=== PATIENT | male | born 1975 | race Caucasian/White ===

== ENCOUNTER 2016-07-12 02:51 | Inpatient (IN) | payer BC, OTHER ==
[2016-07-12] VITALS (14 sets, daily range): BP systolic 103–165; BP diastolic 59–89; PULSE 75–120; RESP 16–19; TEMP 94.3–100.4; O2SAT 96–100
[~2016-07-12] VITALS: Ht 180.3 cm; Wt 97.3 kg
[2016-07-12] MEDS ORDERED: MIDAZOLAM HCL 5 MG/ML VIAL (1 ML) ONE (03:10)
[2016-07-12] MEDS ORDERED: PROPOFOL 1000 MG/100 ML INJ 100 ML ONE (03:31)
[2016-07-12 03:32] LABS: BASOPHIL % 0.3 % (0.0-2.0); EOSINOPHIL % 0.3 % (0.0-4.0); LYMPH % 5.4 % (9.0-44.0); LYMPHOCYTE # 0.4 TH/MM3 (1.0-4.8); MEAN CELL VOLUME 97.2 FL (80.0-100.0); MEAN CORPUSCULAR HEMOGLOBIN 31.9 PG (27.0-34.0); MEAN CORPUSCULAR HGB CONC 32.8 % (32.0-36.0); MONO % 6.2 % (0.0-8.0); NEUT % 87.8 % (16.0-70.0); PLATELET COUNT 112 TH/MM3 (150-450); RED BLOOD COUNT 1.22 MIL/MM3 (4.50-5.90); WHITE BLOOD COUNT 6.8 TH/MM3 (4.0-11.0)
[2016-07-12 03:34] LABS: HEMO FLAGS AUTO DIFF
[2016-07-12 03:35] LABS: HEMATOCRIT 11.8 % (39.0-51.0)
[2016-07-12] MEDS ORDERED: DIPHTH/TETANUS/ACEL PERTUSSIS (BOOSTER) 0.5 ML VIAL/PFS IM ONE (03:45)
[2016-07-12] MEDS ORDERED: ceFAZolin 2 GM PREMIX 50 ML IV STA (03:47)
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
[2016-07-12 03:59] LABS: I-STAT POTASSIUM 2.5 MMOL/L (3.5-4.9); I-STAT SODIUM 141 MMOL/L (138-146)
[2016-07-12] MEDS ORDERED: SUCCINYLCHOLINE CHLORIDE 200 MG/10 ML VIAL IV ONE (04:00)
[2016-07-12] MEDS ORDERED: GENTAMICIN 80 MG PREMIX 100 ML IV ONE (04:00)
[2016-07-12] MEDS ORDERED: ETOMIDATE 20 MG/10 ML VIAL IV PUSH ONE (04:00)
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
[2016-07-12] MEDS ORDERED: LACTATED RINGER'S 1000 ML INJ 1,000 ML IV SCH (04:03)
--- NOTE | 2016-07-12 04:04 | RADRPT ---
EXAM DATE/TIME: 07/12/2016 02:46 [facility] COMPARISON: No previous studies available for comparison. INDICATIONS : Post reduction left forearm. MEDICAL HISTORY : Unobtainable. SURGICAL HISTORY : Unobtainable. ENCOUNTER: Initial ACUITY: 1 day PAIN SCORE: Non-responsive. LOCATION: Left forearm. FINDINGS: A single view of the left forearm is performed status post reduction of fracture/dislocation at the e lb. In this view, the elbow is in lateral projection in the wrist is in frontal projection. The a lignment of the proximal ulna to the humerus is reestablished. The location of the radial head fragm ent is obscured. CONCLUSION: Post reduction single view in splint demonstrates humerus and ulna in alignment. Bruno Vora MD on July 12, 2016 at 4:00 Board Certified Radiologist. This report was verified electronically.
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
[2016-07-12] MEDS ORDERED: IOHEXOL 350 MG/ML 10 ML VIAL (for RAD DIAG) IV ONE (04:14)
[2016-07-12] MEDS ORDERED: CHLORHEXIDINE GLUCONATE 2 % 1 PACK (2 CLOTHS) TOP PRN (04:15)
[2016-07-12] MEDS ORDERED: SODIUM CHLORIDE 0.9% FLUSH 5 ML FLUSH IVF PRN (04:15)
[2016-07-12] MEDS ORDERED: MAGNESIUM HYDROXIDE SUSP 30 ML CUP PO PRN (04:15)
[2016-07-12] MEDS ORDERED: ONDANSETRON HCL 4 MG/2 ML VIAL IV PRN (04:15)
[2016-07-12] MEDS ORDERED: MISCELLANEOUS NURSING INFORMATION XX SCH (04:15)
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
--- NOTE | 2016-07-12 04:27 | RADRPT ---
EXAM DATE/TIME: 07/12/2016 02:46 [facility] COMPARISON: No previous studies available for comparison. INDICATIONS : Post intubation. MEDICAL HISTORY : Unobtainable. SURGICAL HISTORY : Unobtainable. ENCOUNTER: Initial ACUITY: 1 day PAIN SCORE: Non-responsive. LOCATION: Bilateral chest FINDINGS: Examinations performed on a backboard. Endotracheal tube in place with the tip of the ET tube 2.2 cm above the tyrone. The lungs are symmetrically aerated. The heart is normal size. Both hemidiaphra gms are well delineated. CONCLUSION: ET tube in good position. The lungs are symmetrically aerated. Bruno Vora MD on July 12, 2016 at 4:25 Board Certified Radiologist. This report was verified electronically.
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
[2016-07-12 04:57] LABS: AUTOMATED NEUTROPHIL # 10.6 TH/MM3 (1.8-7.7); BASOPHIL % 0.2 % (0.0-2.0); EOSINOPHIL % 0.1 % (0.0-4.0); HEMATOCRIT 28.9 % (39.0-51.0); HEMO FLAGS DIFF FINAL; LYMPH % 4.4 % (9.0-44.0); LYMPHOCYTE # 0.5 TH/MM3 (1.0-4.8); MEAN CELL VOLUME 88.4 FL (80.0-100.0); MEAN CORPUSCULAR HGB CONC 35.1 % (32.0-36.0); MONO % 6.6 % (0.0-8.0); NEUT % 88.7 % (16.0-70.0); PLATELET COUNT 122 TH/MM3 (150-450); RED BLOOD COUNT 3.27 MIL/MM3 (4.50-5.90); RED CELL DISTRIBUTION WIDTH 13.7 % (11.6-17.2); WHITE BLOOD COUNT 11.9 TH/MM3 (4.0-11.0)
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
[2016-07-12] MEDS ORDERED: ETOMIDATE 20 MG/10 ML VIAL ONE (05:17)
[2016-07-12] MEDS ORDERED: VANCOMYCIN HCL 1000 MG VIAL ONE (05:20)
[2016-07-12] MEDS ORDERED: POTASSIUM CHLOR 20 MEQ PREMIX 100 ML ONE (05:43)
[2016-07-12 05:47] LABS: HEMATOCRIT 27.3 % (39.0-51.0); PLATELET COUNT 37 TH/MM3 (150-450)
[2016-07-12 05:51] LABS: REVIEW FLAG FINAL
[2016-07-12 06:16] LABS: BANDS 15 % (0-6); METAMYELOCYTES 3 % (0-1); NEUTROPHIL # MANUAL DIFF 5.6 TH/MM3 (1.8-7.7); POLYS (SEG NEUTROPHILS) 64 % (16-70); WBC DIFF SAMPLE 100
[2016-07-12 06:17] LABS: CRENATED RBCS 3+ (NORMAL); PLATELET ESTIMATE SMEAR LOW (NORMAL); PLATELET MORPHOLOGY NORMAL (NORMAL); SCAN/DIFF FINAL DIFF MANUAL
[2016-07-12 06:40] LABS: INTERNATIONAL NORMALIZED RATIO 1.3 RATIO; PROTHROMBIN TIME - PATIENT 14.3 SEC (9.8-11.6)
[2016-07-12 06:42] LABS: APTT (PATIENT) 31.2 SEC (24.3-30.1)
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
--- NOTE | 2016-07-12 08:16 | RADRPT ---
EXAM DATE/TIME: 07/12/2016 07:45 [facility] COMPARISON: No previous studies available for comparison. INDICATIONS : External fixation of left elbow fracture MEDICAL HISTORY : None. SURGICAL HISTORY : None. ENCOUNTER: Initial ACUITY: 1 day PAIN SCORE: Non-responsive. LOCATION: Left elbow FINDINGS: Alignment is anatomic in the lateral projection in this patient with an external fixer. CONCLUSION: Anatomic alignment. Julius Barillas MD FACR on July 12, 2016 at 8:14 Board Certified Radiologist. This report was verified electronically.
--- NOTE | 2016-07-12 10:50 | RADRPT ---
EXAM DATE/TIME: 07/12/2016 09:49 [facility] COMPARISON: No previous studies available for comparison. INDICATIONS : Open reduction internal fixation of right femur fractures. MEDICAL HISTORY : None. SURGICAL HISTORY : None. ENCOUNTER: Initial ACUITY: 1 day PAIN SCORE: Non-responsive. LOCATION: Right femur FINDINGS: Intramedullary gregg is seen bridging the fracture midshaft of the humerus. Alignment is anatomic. CONCLUSION: Anatomic alignment. Julius Barillas MD FACR on July 12, 2016 at 10:46 Board Certified Radiologist. This report was verified electronically.
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
[2016-07-12 11:30] LABS: BLOOD GAS BASE EXCESS -1.9 mmol/L (-2-2); BLOOD GAS CARBOXYHEMOGLOBIN 1.6 % (0-4); BLOOD GAS HCO3 23 mmol/L (22-26); BLOOD GAS O2 HGB SATURATION 97 % (90-100); BLOOD GAS PCO2 41 mmHg (38-42); BLOOD GAS PO2 431 mmHg (61-120); BLOOD GAS TOTAL HGB 10.9 G/DL (12.0-16.0); CRITICAL VALUE NO; DRAW SITE ART LINE; FIO2 100 %; OXYGEN DEVICE VENTILATOR; STAT YES; TEMP CORR TO 98.6; VENT SETTINGS AC/16/550/PEEP 5
[2016-07-12] MEDS ORDERED: MAGNESIUM OXIDE 400 MG TAB PO PRN (11:45)
[2016-07-12] MEDS ORDERED: POTASSIUM PHOSPHATE MONOBASIC 500 MG TAB PO PRN (11:45)
[2016-07-12] MEDS ORDERED: SODIUM PHOSPHATE INJ 30 MMOL in SODIUM CHLOR 0.9% 250 ML INJ 240 ML IV PRN (11:45)
[2016-07-12] MEDS ORDERED: POTASSIUM PHOSPHATE MONOBASIC 500 MG TAB PO/TUBE PRN (11:45)
[2016-07-12] MEDS ORDERED: POTASSIUM PHOSPHATE INJ 30 MMOL in SODIUM CHLOR 0.9% 250 ML INJ 250 ML IV PRN (11:45)
[2016-07-12] MEDS ORDERED: POTASSIUM CHLOR 20 MEQ PREMIX 100 ML IV PRN ×2 (11:45)
[2016-07-12] MEDS ORDERED: MAGNESIUM SULFATE INJ 2 GM in SODIUM CHLORIDE 0.9% INJ 96 ML IV PRN (11:45)
[2016-07-12] MEDS ORDERED: POTASSIUM CL 40 MEQ/30 ML LIQ UDC PO/TUBE PRN ×2 (11:45)
[2016-07-12] MEDS ORDERED: POTASSIUM CHLOR 40 MEQ PREMIX 100 ML IV PRN ×2 (11:45)
[2016-07-12] MEDS ORDERED: MAGNESIUM SULFATE INJ 4 GM in SODIUM CHLORIDE 0.9% INJ 92 ML IV PRN (11:45)
[2016-07-12 11:49] LABS: HEMATOCRIT 30.7 % (39.0-51.0)
[2016-07-12 11:50] LABS: AMPHETAMINE, URINE NEG (NEG); BARBITURATES, URINE NEG (NEG); COCAINE, URINE NEG (NEG); REVIEW FLAG FINAL
[2016-07-12] MEDS ORDERED: ePHEDrine/NS 50 MG/5 ML SYR IV ONE (11:53)
[2016-07-12] MEDS ORDERED: PHENYLEPH/NS 1000 MCG/10 ML SYR IV ONE (11:53)
[2016-07-12] MEDS ORDERED: LACTATED RINGER'S 1000 ML INJ 2,000 ML IV ONE (11:53)
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
[2016-07-12 12:02] LABS: INTERNATIONAL NORMALIZED RATIO 1.1 RATIO; PROTHROMBIN TIME - PATIENT 12.3 SEC (9.8-11.6)
[2016-07-12 12:03] LABS: APTT (PATIENT) 30.1 SEC (24.3-30.1)
[2016-07-12] MEDS ORDERED: fentaNYL CITRATE 250 MCG/5 ML AMP ONE (12:06)
[2016-07-12 12:11] LABS: BICARBONATE 26.3 MEQ/L (21.0-32.0); CALCIUM-PROTEIN CORRECTED 8.9 MG/DL (8.5-10.1); POTASSIUM 3.9 MEQ/L (3.5-5.1); TOTAL BILIRUBIN ADULT 2.1 MG/DL (0.2-1.0)
--- NOTE | 2016-07-12 12:33 | HHI.CCPN ---
Subjective Brief History 40-year-old male with known schizophrenic and allegedly on medication [place] and laid there for about 4 hours prior to be found and then picked up by EMS Patient was brought in as a priority 1 trauma alert intubated on spinal board with a c-collar in place. Initial hemoglobin was 3 patient was severely hypothermic and is severe hypovolemic hemorrhagic shock Mass transfusion protocol was initiated patient was resuscitated according to the trauma principles Patient sustained multiple injuries including Intra-abdominal hemorrhage with likely spleen laceration Left femoral fracture Left pubic and sacral fractures Left open elbow fracture Bilateral ulnar radial fractures open CT head - left sphenoid fracture - CT maxillofacial no fracture seen CT C-spine - negative CT T spine -20% endplate T12 compression fracture CT L-spine - negative CT chest - negative Patient was resuscitated and taken to the operating room for the emergent fixation of the open orthopedic injuries and then transferred to ICU for further care 24 Hour Review/Hospital Course Patient arrives in the ICU normotensive and hypothermic to temperature of about 94F Resuscitation was continued in the intensive care unit Initial laboratory studies show resolution of anemia with hemoglobin of 11 Platelets are pending and coagulation profile is slowly improving Patient will be taken to the CT of abdomen and pelvis with IV and by mouth contrast later on this afternoon when hemodynamically more stable and normothermic 07/12/16 addendum Patient underwent a repeat CAT scan of abdomen and pelvis with IV and by mouth contrast and this reveals same amount of fluid in the pelvis and around the spleen subphrenic without perforation free air or any sign of intra-abdominal leak Will continue managing patient conservatively as far as the abdominal injuries are concerned Should patient bleed then things may change Objective Vital Signs Date Time Temp Pulse Resp B/P Pulse Ox O2 Delivery O2 Flow Rate FiO2 07/12/16 11:20 100 100 07/12/16 11:11 89 07/12/16 11:11 Mechanical Ventilator 07/12/16 08:00 94.3 16 165/89 Result Diagram: 07/12/16 1055 07/12/16 1055 Other Results Laboratory Tests Test 07/12/16 11:10 Blood Gas Puncture Site ART LINE Blood Gas Patient Temperature 98.6 Blood Gas HCO3 23 mmol/L (22-26) Blood Gas Base Excess -1.9 mmol/L (-2-2) Blood Gas Oxygen Saturation 97 % (90-100) Arterial Blood pH 7.36 (7.380-7.420) Arterial Blood Partial 41 mmHg (38-42) Pressure CO2 Arterial Blood Partial 431 mmHg Pressure O2 (61-120) Arterial Blood Oxygen Content 16.0 Vol % (12.0-20.0) Arterial Blood 1.6 % (0-4) Carboxyhemoglobin Arterial Blood Methemoglobin 1.0 % (0-2) Blood Gas Hemoglobin 10.9 G/DL (12.0-16.0) Oxygen Delivery Device VENTILATOR Blood Gas Ventilator Setting AC/16/550/PEEP 5 Blood Gas Inspired Oxygen 100 % Imaging Last 24 hours Impressions [address] Spine CT 07/12/16321 Signed Impressions: Service Date/Time: Tuesday, July 12, 2016 04:10 - CONCLUSION: Less than 20%% compression deformity of the superior endplate of T12 with mild flattening of the ventral margin of the bony spinal canal. No definite retropulsed fragment. Bruno Vora MD Pelvis X-Ray 07/12/16321 Signed Impressions: Service Date/Time: Tuesday, July 12, 2016 02:46 - CONCLUSION: Fractures of the proximal right femur, left pubic bones and right sacrum. Bruno Vora MD Lumbar Spine CT 07/12/16321 Signed Impressions: Service Date/Time: Tuesday, July 12, 2016 04:10 - CONCLUSION: No evidence of fracture or spondylolisthesis of the lumbar vertebral bodies. Bruno Vora MD Head CT 07/12/16321 Signed Impressions: Service Date/Time: Tuesday, July 12, 2016 03:56 - CONCLUSION: 1. No acute findings in the brain. 2. Bilateral lesser wing sphenoid fractures. Bruno Vora MD Chest X-Ray 07/12/16321 Signed Impressions: Service Date/Time: Tuesday, July 12, 2016 02:46 - CONCLUSION: The lungs are clear. Bruno Vora MD Chest CT 07/12/16321 Signed Impressions: Service Date/Time: Tuesday, July 12, 2016 04:10 - CONCLUSION: Negative trauma CT of the thorax. Bruno Vora MD Cervical Spine CT 07/12/16321 Signed Impressions: Service Date/Time: Tuesday, July 12, 2016 03:56 - CONCLUSION: No evidence of acute fracture or spondylolisthesis. Bruno Vora MD Abdomen/Pelvis CT 07/12/16 0322 Signed Impressions: Service Date/Time: Tuesday, July 12, 2016 04:10 - CONCLUSION: 1. Multiple pelvic fractures including a displaced intertrochanteric right proximal femoral fracture, right sacral ala, left superior and inferior pubic ramus and symphysis pubis. 2. There is free fluid in the upper abdomen, more prominent on the left on the right and a moderate amount of free fluid in the pelvis. 3. No gross abnormality seen in the liver, spleen, or kidneys. There is some image degradation due to the patient's arms in the [id number] and from metallic wires. Bruno Vora MD Tibia/Fibula X-Ray 07/12/16 0000 Signed Impressions: Service Date/Time: Tuesday, July 12, 2016 02:46 - CONCLUSION: No fractures seen. Bruno Vora MD Radius/Ulna X-Ray 07/12/16 0000 Signed Impressions: Service Date/Time: Tuesday, July 12, 2016 02:46 - CONCLUSION: Fracture dislocation of the proximal radius and ulna at the elbow with complete dislocation of the radius and ulna with respect to the humerus. Bruno Vora MD Radius/Ulna X-Ray 07/12/16 0000 Signed Impressions: Service Date/Time: Tuesday, July 12, 2016 02:46 - CONCLUSION: Post reduction single view in splint demonstrates humerus and ulna in alignment. Bruno Vora MD Maxillofacial CT 07/12/16 0000 Signed Impressions: Service Date/Time: Tuesday, July 12, 2016 03:56 - CONCLUSION: No facial bone fractures seen. In particular, the lesser wing of the sphenoid is intact on both sides. Bruno Vora MD Knee X-Ray 07/12/16 0000 Signed Impressions: Service Date/Time: Tuesday, July 12, 2016 02:46 - CONCLUSION: Patellar and proximal fibular fractures. Bruno Vora MD Femur X-Ray 07/12/16 0000 Signed Impressions: Service Date/Time: Tuesday, July 12, 2016 02:46 - CONCLUSION: Intratrochanteric, midshaft femoral, left pubic, right sacral, and patellar fractures. Bruno Vora MD Chest X-Ray 07/12/16 0000 Signed Impressions: Service Date/Time: Tuesday, July 12, 2016 02:46 - CONCLUSION: ET tube in good position. The lungs are symmetrically aerated. Bruno Vora MD Exam [employer] Patient is intubated and ventilated His neurologic status remains elusive at this point and when other hemodynamic pulmonary and metabolic issues are addressed and resolved we will reassess his neurologic function CT scan did not reveal any brain injury or intracranial injury but. Of brain anoxia is unknown and might have been ranging from anywhere to 2-3 hours before patient was even discovered to be on the railroad tracks Fact that he came with a hemoglobin of 3 attests to continuous brain hypoxia but which she'll see how patient does clinically Hemodynamic/Cardiac Hemodynamically patient was unstable with low blood pressure and low hemoglobin however he has been resuscitated adequately in the trauma room using massive transfusion protocol related blood and blood products and then taken to the operating room where he is hemodynamic values were maintained Blood pressure is now stable Pulmonary/Respiratory Bilateral breath sounds patient remains on the ventilator will remain intubated for a while until neurologic status is assessed and metabolic abnormalities and hematologic deficiencies are addressed and corrected This may take a few days Abdomen/GI Nutrition Abdomen is soft at this point but patient is intubated so the physical exam has limited value Original CT scan shows some blood around the spleen and in the pelvis attesting to likely splenic injury and possible mesenteric tear from deceleration injury Patients like this high risk for intra-abdominal injury and intestinal perforation which may not be evident initially Once all stable patient will undergo CT of abdomen and pelvis with by mouth and IV contrast later on this afternoon to reassess If there is any question about the integrity of his intestinal tract or continues bleeding appropriate measures will be taken including possibly going to the operating room Renal/I&O Renal function is preserved but patient has had a period of hypoxia and therefore acute tubular necrosis will develops a patient's creatinine BUN will get worse before they get better Adequate perfusion will be maintained Assessment and Plan Attestation The exam, history, and the medical decision-making described in the above note were completed with the assistance of the mid-level provider. I reviewed and agree with the findings presented. I attest that I had a [id number] encounter with the patient on the same day, and personally performed and documented my assessment and findings in the medical record. Critical care time 90 minutes. Gino Gimenez MD Jul 12, 2016 12:33
[2016-07-12 13:00] LABS: MEAN CORPUSCULAR HGB CONC 36.1 % (32.0-36.0)
[2016-07-12] MEDS ORDERED: DIATRIZOATE MEGLUM/DIATRIZOATE SOD 9 ML CUP PO ONE (13:00)
[2016-07-12] MEDS: DOCUSATE SODIUM 100 MG CAP PO SCH ×2 (13:24→21:49)
[2016-07-12] MEDS: PANTOPRAZOLE SODIUM 40 MG VIAL IV PUSH SCH (13:25)
[2016-07-12] MEDS: SODIUM CHLOR 0.9% 1000 ML INJ 1,000 ML IV SCH ×2 (13:30→21:49)
[2016-07-12 13:31] LABS: MAGNESIUM 1.8 MG/DL (1.5-2.5)
--- NOTE | 2016-07-12 13:46 | MB ---
cc: HEATH CHOPRA M.D. DATE OF CONSULTATION: 07/12/2016. REASON FOR CONSULTATION: A trauma alert patient. Multiple fractures. Life threatening injury. HISTORY OF PRESENT ILLNESS: This patient is an approximately 28-year-old male who was reported to have tried to commit suicide by jumping off a bridge onto the railroad tracks. He was brought in by EMS as he was found lying on the ground. He had multiple extremity fractures and this is a level 1 trauma alert. He has a history of schizophrenia and bipolar disorder. He was intubated in the trauma bay for management purposes and the patient was hypotensive and had a hemoglobin of 3. He received massive blood transfusions. I was called emergently to evaluate and treat this patient for his life-threatening critical injuries. Further history is a not obtainable as the patient was intubated. ALLERGIES: Unobtainable. MEDICATIONS: Unobtainable. FAMILY HISTORY: Otherwise unobtainable. SOCIAL HISTORY Otherwise unobtainable. REVIEW OF SYSTEMS: Unobtainable other than the history of present illness. PHYSICAL EXAMINATION: GENERAL: The patient is patient lying in bed. He is intubated. HEAD, EYES, EARS, NOSE, THROAT: His head shows multiple abrasions to his face. Pupils are round. No scleral icterus. NECK: The neck is currently in a cervical collar. LUNGS: The lungs have air entry bilaterally. HEART: S1 and S2. ABDOMEN: Abdomen soft and nondistended. EXTREMITIES: Right knee shows crepitation consistent with a fracture of the patella. The right thigh has an open traumatic laceration on the lateral distal third consistent with an open femur fracture. There is crepitation and deformity of the right thigh with associated obvious swelling. Physical examination of the left knee shows a 10 cm traumatic transverse laceration with an obvious open patella fracture. He also has a separate traumatic wound along the proximal medial third of the tibia in the region of the patellar tendon. Physical examination of the left upper extremity shows deformity consistent with his fracture-dislocation. He has an open traumatic wound along the medial aspect approximately 10 cm with venous bleeding from this area. There is deformity and crepitation of the left elbow. Physical examination of the left hand shows traumatic laceration with partial degloving along the palmar aspect of the hand and wrist. It was reported that he has arterial bleeding from the region of the ulnar artery and the proximal portion of the ulnar artery was tied off in the trauma bay with Prolene suture. The patient does have a strong radial pulse distally. He has palpable dorsalis pedis pulses bilaterally to lower extremities. LABORATORY DATA: White blood cell count is 6.8, hemoglobin 3.9 on presentation, platelets 112,000 at presentation. IMAGING STUDIES: AP pelvis shows a right intertrochanteric hip fracture and left pelvic rami fractures. X-rays of the right femur show a right femoral shaft fracture with displacement. X-rays of the left forearm show a fractured radial head and neck with a dislocation of the left elbow. X-ray left tibia does show what appears to a left comminuted patella fracture. X-rays of the right tibia show a comminuted right patellar fracture. IMPRESSION: 28-year-old male who is reported to have attempted suicide by jumping from a height. He has multiple severe life-threatening and limb-threatening injuries for stabilization, irrigation and debridement, blood transfusion and management of his injuries. MD SANJANA Tenorio/BRIAN /10:20 AM /1:33 PM
[2016-07-12] MEDS: PROPOFOL 1000 MG/100 ML INJ 100 ML IV SCH ×3 (15:15→21:49)
[2016-07-12] MEDS ORDERED: EPINEPHrine HCL (1:10,000) 1 MG/10 ML SYRINGE ONE (16:43)
[2016-07-12] MEDS ORDERED: LIDOCAINE HCL 2% 100 MG/5 ML SYRINGE ONE (16:44)
[2016-07-12] MEDS ORDERED: ATROPINE SULFATE 1 MG/10 ML SYRINGE ONE (16:44)
[2016-07-12] MEDS: ENOXAPARIN SODIUM 30 MG/0.3 ML SYRINGE SQ SCH (17:15)
--- NOTE | 2016-07-12 17:44 | RADRPT ---
EXAM DATE/TIME: 07/12/2016 17:20 [facility] COMPARISON: CT ABDOMEN & PELVIS W CONTRAST, July 12, 2016, 4:10. INDICATIONS : Follow up trauma; splenic injury. IV CONTRAST: 93 cc Omnipaque 350 (iohexol) IV ORAL CONTRAST: No oral contrast ingested. RADIATION DOSE: 16.49 CTDIvol (mGy) MEDICAL HISTORY : None SURGICAL HISTORY : None. ENCOUNTER: Initial ACUITY: 1 day PAIN SCALE: 10/10 LOCATION: abdomen TECHNIQUE: Volumetric scanning of the abdomen and pelvis was performed. Using automated exposure control and ad justment of the mA and/or kV according to patient size, radiation dose was kept as low as reasonably achievable to obtain optimal diagnostic quality images. FINDINGS: Bony fractures remain inclusive the right sacral ala, left superior pubic ramus and inferior pubic ra mus extending into the symphysis. Fracture intertrochanteric of the right femur has been surgically i ntervene with placement of an internal fixation device sliding nail there a Burrows catheter remains in place in the bladder. The fluid in the pelvis is unchanged in position and volume. Fluid in the uppe r abdomen particularly on the left and around the spleen remains present. The amount of fluid around the spleen has diminished in volume . Solid organs again appear intact spleen does not reveal subcaps ular hematoma tear or laceration. There is a nasogastric tube to the midline the chest in the stomach . CONCLUSION: Free fluid persists unchanged in the pelvis and in the upper abdomen slightly diminished in the peris plenic region. Solid organs again appear to be intact. Pelvic fractures are appreciated unchanged wit h interim internal fixation device sliding nail placed in the right femur fracture. Pedro Pablo Noel MD on July 12, 2016 at 17:37 Board Certified Radiologist. This report was verified electronically.
[2016-07-12 18:33] LABS: HEMATOCRIT 30.5 % (39.0-51.0); MEAN CELL VOLUME 85.2 FL (80.0-100.0); MEAN CORPUSCULAR HEMOGLOBIN 30.8 PG (27.0-34.0); PLATELET COUNT 117 TH/MM3 (150-450); RED BLOOD COUNT 3.57 MIL/MM3 (4.50-5.90); RED CELL DISTRIBUTION WIDTH 14.7 % (11.6-17.2); WHITE BLOOD COUNT 4.6 TH/MM3 (4.0-11.0)
[2016-07-12 18:37] LABS: REVIEW FLAG FINAL
--- NOTE | 2016-07-12 20:11 | PD.CONS ---
History of Present Illness Service Neurosurgery Consult Requested By General surgery trauma service Primary Care Physician Unknown Diagnoses: History of Present Illness 28-year-old gentleman with history of bipolar disorder and schizophrenia. Reportedly attempted suicide by jumping off a bridge onto railroad tracks were divided for approximately 4 hours before being found and brought to [facility] emergency room as a trauma alert. Patient is intubated and cannot give additional history or review of systems. Review of Systems Other Unable to obtain review of systems-patient intubated Past Family Social History Allergies: Coded Allergies: Haldol (Verified Allergy, Unknown, 07/13/16) Past Medical History Unable to obtain past medical history, surgical, family, social history from patient-presently intubated. According to chart he has a history of bipolar disorder, schizophrenia. Physical Exam Vital Signs Vital Signs Date Time Temp Pulse Resp B/P Pulse Ox O2 Delivery O2 Flow Rate FiO2 07/12/16 18:00 114 07/12/16 17:19 100 60 07/12/16 16:39 100 50 07/12/16 16:00 50 07/12/16 16:00 118 07/12/16 16:00 99.5 104 18 127/73 100 07/12/16 14:00 95 07/12/16 13:00 75 07/12/16 13:00 94.5 75 16 148/80 100 07/12/16 12:00 100 07/12/16 11:20 100 100 07/12/16 11:11 89 07/12/16 11:11 100 Mechanical Ventilator 100 07/12/16 11:09 100 07/12/16 08:00 94.3 90 16 165/89 100 07/12/16 03:35 100 100 07/12/16 02:50 96 100 Physical Exam GENERAL: This is a well-nourished, well-developed patient, intubated. No agitation. SKIN: Multiple extremity abrasions. Left upper extremity and bilateral lower extremities not well examined due to splints and dressings in place. HEAD: Scattered scalp abrasions and ecchymosis. EYES: Mild right greater than left periorbital edema and ecchymosis. Mild right conjunctival edema and ecchymosis ENT: Moderate right greater than left periorbital and upper facial edema and ecchymosis. No evidence of CSF otorrhea or rhinorrhea. External auditory canals clear NECK: No obvious neck tenderness. CARDIOVASCULAR: Regular rate and rhythm without murmurs, gallops, or rubs. RESPIRATORY: Clear to auscultation. Breath sounds equal bilaterally. No wheezes , rales, or rhonchi. GASTROINTESTINAL: Abdomen soft, non-tender, nondistended. No hepato-splenomegaly , or palpable masses. No guarding. MUSCULOSKELETAL: External fixator and dressing left upper extremity. Full leg splints lower extremities. Mild right lower extremity edema without cyanosis. Posterior tibial pulse 2+ left, 1+ right NEUROLOGICAL: Intubated, sedated on propofol. Pupils 3 mm reactive to 2 mm Moderate conjugate extraocular movements when stimulated Unable to otherwise assess cranial nerve function Mild to moderate grasp right and left to command Moves right and left foot and toes moderate to command Ester's response absent bilateral No ankle clonus Plantar responses are absent bilateral Laboratory Laboratory Tests Test 07/12/16 07/12/16 07/12/16 07/12/16 03:00 03:22 04:20 05:30 White Blood Count 6.8 11.9 Red Blood Count 1.22 3.27 Hemoglobin 3.9 10.2 9.9 Bedside Hemoglobin 0.0 Hematocrit 11.8 28.9 27.3 Bedside Hematocrit LESS THAN 15.0 Mean Corpuscular Volume 97.2 88.4 Mean Corpuscular Hemoglobin 31.9 31.0 Mean Corpuscular Hemoglobin 32.8 35.1 Concent Red Cell Distribution Width 13.0 13.7 Platelet Count 112 122 37 Mean Platelet Volume 8.4 7.9 Neutrophils (%) (Auto) 87.8 88.7 Lymphocytes (%) (Auto) 5.4 4.4 Monocytes (%) (Auto) 6.2 6.6 Eosinophils (%) (Auto) 0.3 0.1 Basophils (%) (Auto) 0.3 0.2 Neutrophils # (Auto) 6.0 10.6 Lymphocytes # (Auto) 0.4 0.5 Monocytes # (Auto) 0.4 0.8 Eosinophils # (Auto) 0.0 0.0 Basophils # (Auto) 0.0 0.0 CBC Comment AUTO DIFF DIFF FINAL Differential Total Cells 100 Counted Neutrophils % (Manual) 64 Band Neutrophils % 15 Lymphocytes % 18 Neutrophils # (Manual) 5.6 Metamyelocytes 3 Differential Comment FINAL DIFF MANUAL Platelet Estimate LOW Platelet Morphology Comment NORMAL Crenated Cell 3+ Bedside Sodium 141 Bedside Potassium 2.5 Bedside Chloride 114 Bedside Blood Urea Nitrogen 9 Bedside Creatinine 1.1 Bedside Glucose 160 Ethyl Alcohol Level LESS THAN 3 Blood Type Antibody Screen NEGATIVE Crossmatch Leukocyte-Reduced Leukocyte-Reduced Red Blood Red Blood Cells Cells Blood Bank Comment Prothrombin Time 14.3 Prothromb Time International 1.3 Ratio Activated Partial 31.2 Thromboplast Time Potassium Level 4.5 Test 07/12/16 07/12/16 07/12/16 07/12/16 10:12 10:55 11:10 11:50 Blood Type O POSITIVE O POSITIVE Crossmatch Leukocyte-Reduced Leukocyte-Reduced Red Blood Red Blood Cells Cells Blood Bank Comment Hemoglobin 11.1 Hematocrit 30.7 Platelet Count 109 Prothrombin Time 12.3 Prothromb Time International 1.1 Ratio Activated Partial 30.1 Thromboplast Time Fibrinogen 132 Nasal Screen MRSA (PCR) NEGATIVE Sodium Level 134 Potassium Level 3.9 Chloride Level 100 Carbon Dioxide Level 26.3 Anion Gap 8 Blood Urea Nitrogen 13 Creatinine 1.23 Estimat Glomerular Filtration 51 Rate Random Glucose 144 Lactic Acid Level 2.1 Calcium Level 7.2 Protein Corrected Calcium 8.9 Phosphorus Level 3.6 Magnesium Level 1.8 Total Bilirubin 2.1 Aspartate Amino Transf 64 (AST/SGOT) Alanine Aminotransferase 30 (ALT/SGPT) Alkaline Phosphatase 57 Total Protein 4.2 Albumin 2.4 Urine Opiates Screen NEG Urine Barbiturates Screen NEG Urine Amphetamines Screen NEG Urine Benzodiazepines Screen POS Urine Cocaine Screen NEG Urine Cannabinoids Screen NEG Blood Gas Puncture Site ART LINE Blood Gas Patient Temperature 98.6 Blood Gas HCO3 23 Blood Gas Base Excess -1.9 Blood Gas Oxygen Saturation 97 Arterial Blood pH 7.36 Arterial Blood Partial 41 Pressure CO2 Arterial Blood Partial 431 Pressure O2 Arterial Blood Oxygen Content 16.0 Arterial Blood 1.6 Carboxyhemoglobin Arterial Blood Methemoglobin 1.0 Blood Gas Hemoglobin 10.9 Oxygen Delivery Device VENTILATOR Blood Gas Ventilator Setting AC/16/550/PEEP 5 Blood Gas Inspired Oxygen 100 Antibody Screen NEGATIVE Test 07/12/16 18:04 White Blood Count 4.6 Red Blood Count 3.57 Hemoglobin 11.0 Hematocrit 30.5 Mean Corpuscular Volume 85.2 Mean Corpuscular Hemoglobin 30.8 Mean Corpuscular Hemoglobin 36.1 Concent Red Cell Distribution Width 14.7 Platelet Count 117 Mean Platelet Volume 7.9 Result Diagram: 07/12/16 1804 07/12/16 1055 Imaging 07/12/16 CT scan head, cervical spine, thoracic spine, and bone windows abdomen and pelvis CT scan images are reviewed by the undersigned. Agree with findings as noted below: ,Thoracic Spine CT 07/12/16321 Signed Impressions: Service Date/Time: Tuesday, July 12, 2016 04:10 - CONCLUSION: Less than 20%% compression deformity of the superior endplate of T12 with mild flattening of the ventral margin of the bony spinal canal. No definite retropulsed fragment. Bruno Vora MD Pelvis X-Ray 07/12/16321 Signed Impressions: Service Date/Time: Tuesday, July 12, 2016 02:46 - CONCLUSION: Fractures of the proximal right femur, left pubic bones and right sacrum. Bruno Vora MD Lumbar Spine CT 07/12/16321 Signed Impressions: Service Date/Time: Tuesday, July 12, 2016 04:10 - CONCLUSION: No evidence of fracture or spondylolisthesis of the lumbar vertebral bodies. Bruno Vora MD Head CT 07/12/16321 Signed Impressions: Service Date/Time: Tuesday, July 12, 2016 03:56 - CONCLUSION: 1. No acute findings in the brain. 2. Bilateral lesser wing sphenoid fractures. Bruno Vora MD Chest X-Ray 07/12/16321 Signed Impressions: Service Date/Time: Tuesday, July 12, 2016 02:46 - CONCLUSION: The lungs are clear. Bruno Vora MD Chest CT 07/12/16321 Signed Impressions: Service Date/Time: Tuesday, July 12, 2016 04:10 - CONCLUSION: Negative trauma CT of the thorax. Bruno Vora MD Cervical Spine CT 07/12/16321 Signed Impressions: Service Date/Time: Tuesday, July 12, 2016 03:56 - CONCLUSION: No evidence of acute fracture or spondylolisthesis. Bruno Vora MD Abdomen/Pelvis CT 07/12/16321 Signed Impressions: Service Date/Time: Tuesday, July 12, 2016 04:10 - CONCLUSION: 1. Multiple pelvic fractures including a displaced intertrochanteric right proximal femoral fracture, right sacral ala, left superior and inferior pubic ramus and symphysis pubis. 2. There is free fluid in the upper abdomen, more prominent on the left on the right and a moderate amount of free fluid in the pelvis. 3. No gross abnormality seen in the liver, spleen, or kidneys. There is some image degradation due to the patient's arms in the [id number] and from metallic wires. Bruno Vora MD Tibia/Fibula X-Ray 07/12/16 0000 Signed Impressions: Service Date/Time: Tuesday, July 12, 2016 02:46 - CONCLUSION: No fractures seen. Bruno Vora MD Radius/Ulna X-Ray 07/12/16 Signed Impressions: Service Date/Time: Tuesday, July 12, 2016 02:46 - CONCLUSION: Fracture dislocation of the proximal radius and ulna at the elbow with complete dislocation of the radius and ulna with respect to the humerus. Bruno Vora MD Maxillofacial CT 07/12/16 Signed Impressions: Service Date/Time: Tuesday, July 12, 2016 03:56 - CONCLUSION: No facial bone fractures seen. In particular, the lesser wing of the sphenoid is intact on both sides. Bruno Vora MD Knee X-Ray 07/12/16 0000 Signed Impressions: Service Date/Time: Tuesday, July 12, 2016 06:01 - CONCLUSION: Alignment is anatomic. Julius Barillas MD FACR Femur X-Ray 07/12/16 Signed Impressions: Service Date/Time: Tuesday, July 12, 2016 09:49 - CONCLUSION: Anatomic alignment. Julius Barillas MD FACR Elbow X-Ray 07/12/16 Signed Impressions: Service Date/Time: Tuesday, July 12, 2016 07:45 - CONCLUSION: Anatomic alignment. Julius Barillas MD FACR Assessment and Plan Assessment and Plan Impression: 1. Approximately 20% T12 compression fracture without significant retropulsion. No subluxation. 2. Right sacral alar fracture 3. No definite traumatic brain injury Recommendations: No family available at present for discussion of the patient's findings and treatment plan. After extubation, can be mobilized out of bed with TLSO brace from neurosurgical standpoint. Okay to begin Lovenox for DVT prophylaxis from neurosurgical standpoint. Kip Larsen MD Jul 12, 2016 20:11
[2016-07-12 21:06] LABS: MEAN CORPUSCULAR HGB CONC 36.1 % (32.0-36.0)
[2016-07-12 21:48] LABS: HEMATOCRIT 28.6 % (39.0-51.0)
[2016-07-12 21:49] LABS: REVIEW FLAG FINAL
[2016-07-12] MEDS: fentaNYL DRIP 250 ML IV SCH (21:49)
[2016-07-12] MEDS ORDERED: SODIUM CHLOR 0.9% 1000 ML INJ 1,000 ML IV SCH (22:00)
[2016-07-12] MEDS ORDERED: ALBUMIN HUMAN 5% 25 GM/500 ML BOTTLE IV SCH (22:00)
--- NOTE | 2016-07-12 22:31 | MP ---
cc: HEATH CHOPRA M.D. DATE OF SURGERY 07/12/16 PREOPERATIVE DIAGNOSIS Right closed intertrochanteric femur fracture, right grade III open femoral shaft fracture. Right closed patella fracture, left grade III open patella fracture, left grade III open elbow fracture dislocation, left hand and wrist open traumatic wound degloving injury laceration to the ulnar artery, left-sided pelvic rami fracture. POSTOPERATIVE DIAGNOSIS Right closed intertrochanteric femur fracture, right grade III open femoral shaft fracture. Right closed patella fracture, left grade III open patella fracture, left grade III open elbow fracture dislocation, left hand and wrist open traumatic wound degloving injury laceration to the ulnar artery, left-sided pelvic rami fracture. PROCEDURE 1. Open reduction internal fixation with intramedullary nailing right intertrochanteric femur fracture 2. Open reduction internal fixation with intramedullary nailing right grade III open femoral shaft fracture 3. Irrigation debridement of right grade III open femoral shaft fracture 4. Irrigation and debridement of left grade III open patellar fracture 5. Open reduction internal fixation of left grade III open patellar fracture 6. Irrigation debridement of left elbow grade III open elbow fracture dislocation 7. Open reduction of left elbow grade III fracture-dislocation 8. Application of external fixator left elbow. 9. Irrigation debridement of left hand and wrist ulnar artery ligation. SURGEON Dr. Shena Chopra ADULT CARE PROVIDER CARLOS Thomas ANESTHESIA General. ESTIMATED BLOOD LOSS One liter COMPLICATIONS None. INDICATIONS The patient is approximately a 28-year-old male who was reported to have tried to commit suicide. He reportedly jumped from a height and landed on the railroad tracks. He was brought in by ambulance to [facility] as a Trauma alert patient. He was intubated. Orthopedic surgery was consulted. The patient was taken to the operating room emergently for his life threatening and limb threatening injuries. PROCEDURE IN DETAIL The patient was taken to the operating room and general anesthesia administered. He had already been intubated in the trauma bay. In the trauma bay, he received gentamicin and Ancef. We administered an additional 1 gram of IV vancomycin. Attention was first turned to the left lower extremity which was prepped and draped using isopropyl alcohol, Hibiclens solution and Betadine solution. The 10 cm traumatic laceration over the left knee was extended in a longitudinal fashion both proximally and distally. A sharp debridement with a 10 blade scalpel was performed to include skin, subcutaneous tissue, muscle tendon down to level of bone. A curette was used to curette the bone. The knee was then thoroughly irrigated with three liters of pulse lavage sterile saline antibiotic impregnated solution. There was a highly comminuted fracture with multiple fracture fragments and evidence of some bone loss. A fracture reduction tenaculum clamp was used to assist with open reduction of the patella fracture. Two K-wires were then drilled transversing holding the fractures in a longitudinal pattern and subsequently two Synthes 40 mm x 4.0 mm partial threaded cannulated stainless screws were used for fixation. There was a medial fracture fragment which U was also able to reduce and pin with K-wires and subsequently put another 4.0 mm cannulated screw. Once I was able to achieve open reduction internal fixation, the repair was then further reinforced and imbricated with a soft tissue repair of the quadriceps and patella tendon and also the medial and lateral retinaculum. The knee was again thoroughly irrigated with sterile saline pulse lavage antibiotic impregnated solution. The incision was then closed with 3-0 nylon suture. There was a separate traumatic wound over the region of the patella tendon along the medial aspect which is also debrided with a 10 blade scalpel and then primarily closed with 3-0 nylon interrupted sutures. A knee immobilizer brace was placed after sterile dressings were applied. Attention was then turned to the left upper extremity. The left upper extremity was then prepped and draped using isopropyl alcohol, Hibiclens solution and DuraPrep solution. Attention was first turned to the left hand and wrist. The traumatic wound was explored. A debridement was performed with a 15 blade scalpel. There was some degloving along the region of the skin. The proximal portion of the ulnar artery had been tied off and ligated in the trauma bay with a Prolene suture. The distal portion of the artery was not ligated and there was still arterial blood flow and bleeding from this region. The patient did have a strong radial pulse and his fingers had brisk capillary refill. I ligated the distal portion of the ulnar artery with a 2-0 Vicryl suture to control bleeding. The wound was then thoroughly irrigated with sterile saline solution. The traumatic wound was then closed primarily with 4-0 horizontal mattress nylon suture. Attention was then turned to the left elbow where the 10 cm traumatic medial wound was extended in a longitudinal fashion both proximally and distally. A meticulous debridement was performed to include skin, subcutaneous tissue down to the level of the bone. The wound was then thoroughly irrigated with sterile saline pulse lavage antibiotic impregnated solution. At this point, a longitudinal incision was made over the posterior lateral aspect of the left distal humerus. Dissection was carefully carried down to the level of the bone. Two 4.0 mm partial threaded half pins were placed within the humerus and two 4.0 mm half pins were placed within the ulna shaft. Shine to shine and pin to shine connections were established using fluoroscopic imaging. An open reduction was performed. Because of the open nature of the wound, I was able to manually hold and open reduce the fracture. The fracture dislocation portion of the elbow was very unstable. Once I was able to achieve an adequate reduction, The shine to shine and pin to rode clamps were then secured to maintain this reduction. At this point, the traumatic wound along the medial aspect of the elbow was closed with 3-0 nylon suture. 3-0 nylon suture also used to repair the incisions made for insertion of the pin sites. Xeroform gauze and sterile dressings as well as Sof-Rol and an Cristobal wrap was placed on the left upper extremity. At this point, the patient was then transferred to a fracture table. The right and left feet were placed in the padded traction boots. The left leg was maintained in the knee immobilizer brace. Longitudinal traction was applied to the right lower extremity and the right lower extremity was then prepped and draped using isopropyl alcohol, Hibiclens solution and Chloraprep solution. A longitudinal incision was made over the lateral aspect of the right hip. The fascial layer was incised. There was severe comminution along the region of the intertrochanteric hip and femur. I extended the incision and I performed an open reduction with the assistance of a Liz retractor and also a fracture reduction tenaculum. Subsequently, a guidewire was drilled from the top portion of the greater trochanter into the proximal femur. This was followed by placement of a cannulated entry reamer. Subsequently, a long beaded tip guidewire was placed down the intramedullary canal of the femur. There was significant displacement and comminution of the femoral shaft as well. There was a traumatic wound along the lateral aspect which was extended proximally and distally. The wound was debrided sharply with a 15 blade scalpel to include skin, subcutaneous tissue, muscle down to the level of the bone. This wound was then thoroughly irrigated sterile saline pulse lavage antibiotic impregnated solution. An open reduction of the femoral shaft fracture was performed manually and the guidewire was then passed down the femoral shaft. Sequential reaming began with a size 8.5 mm, was carried through a size 12.5 mm. Subsequently, a Synthes 12.5 mm x 380 mm titanium nail was inserted into the intramedullary canal of the femur. To repair the proximal intertrochanteric hip fracture, a guidewire was drilled at a 125 degree angle through the nail and with the intertrochanteric fracture held with a reduction clamp, the guidewire obtained purchase in the center of the femoral head. This was visualized in the AP and lateral fluoroscopic projections. Subsequently, a Synthes 105 mm lag screw was inserted. The top locking screw was then secured ____ fixed angle sliding construct. Compression was achieved across the lag screw to allow for fracture reduction and impaction across the intertrochanteric hip fracture. Attention was turned to the femoral shaft fracture where traction was released and the fracture was able to impact and further reduce. The fluoroscopic perfect zuni technique was used to place two lateral to medial transverse static locking screws distal to the femoral shaft fracture to help give rotational control and stability. Fluoroscopic imaging confirmed hardware placement and fracture reduction. All wounds were then thoroughly irrigated again with sterile saline pulse lavage antibiotic impregnated solution. The fascia layer was closed with #1 Vicryl suture. Subcutaneous layer 3-0 Vicryl suture. Skin was closed nguyen. Sterile dressings were applied. The patient tolerated the procedure and will be was taken to the intensive care unit in critical condition. Postoperative plan for this patient will be for him to receive intensive care unit support. He will likely require additional blood transfusion. He will likely require additional surgical intervention for his left elbow and right patella. He may require additional repeat debridement surgeries and other surgeries to address his multiple injuries. Ray Sahni, physician magistrate assistant certified, was present during the entire procedure to include patient positioning and the procedure itself. The medical necessity of a physician magistrate assistant was indicated due to the complexity of the procedure. He assisted with appropriate retraction of muscle, tendon, bone and neurovascular structures. He assisted with both achieving fracture reduction and maintaining fracture reduction as well as implantation of internal fixation devices. He assisted with the multiple complex debridement surgeries and also surgical reduction and repair of all injuries. MD SANJANA Tenorio/ /10:25 AM /9:49 PM
[2016-07-13] VITALS (18 sets, daily range): BP systolic 100–149; BP diastolic 48–83; PULSE 102–134; RESP 11–21; TEMP 100–100.4; O2SAT 96–100
[2016-07-13] MEDS: BACITRACIN TOP OINT 15 GM TUBE TOP SCH ×3 (00:13→20:23)
[2016-07-13] MEDS: CHLORHEXIDINE 0.12% (ORAL KIT) 15 ML CUP MT SCH ×3 (00:13→20:00)
[2016-07-13] MEDS: PROPOFOL 1000 MG/100 ML INJ 100 ML IV SCH ×2 (04:30→07:06)
[2016-07-13 04:55] LABS: BLOOD GAS BASE EXCESS -2.6 mmol/L (-2-2); BLOOD GAS CARBOXYHEMOGLOBIN 1.4 % (0-4); BLOOD GAS HCO3 22 mmol/L (22-26); BLOOD GAS METHEMOGLOBIN 1.2 % (0-2); BLOOD GAS O2 HGB SATURATION 97 % (90-100); BLOOD GAS OXYGEN CONTENT 12.3 Vol % (12.0-20.0); BLOOD GAS PCO2 43 mmHg (38-42); BLOOD GAS PO2 143 mmHg (61-120); BLOOD GAS TOTAL HGB 8.8 G/DL (12.0-16.0); TEMP CORR TO 98.6
[2016-07-13 04:56] LABS: CRITICAL VALUE NO; DRAW SITE ALINE; FIO2 40 %; OXYGEN DEVICE VENTILATOR; STAT NO; ULNAR PULSE PRESENT; VENT SETTINGS PRVC/R16/550/0.9/+5
[2016-07-13] MEDS: SODIUM CHLOR 0.9% 1000 ML INJ 1,000 ML IV SCH ×3 (05:32→21:50)
[2016-07-13] MEDS: CHLORHEXIDINE GLUCONATE 2 % 1 PACK (2 CLOTHS) TOP SCH (05:32)
[2016-07-13 05:52] LABS: AUTOMATED NEUTROPHIL # 3.2 TH/MM3 (1.8-7.7); BASOPHIL % 0.5 % (0.0-2.0); EOSINOPHIL # 0.1 TH/MM3 (0-0.4); EOSINOPHIL % 2.5 % (0.0-4.0); HEMATOCRIT 25.2 % (39.0-51.0); LYMPH % 18.5 % (9.0-44.0); LYMPHOCYTE # 0.9 TH/MM3 (1.0-4.8); MEAN CELL VOLUME 86.2 FL (80.0-100.0); MEAN CORPUSCULAR HEMOGLOBIN 31.1 PG (27.0-34.0); MONO % 9.7 % (0.0-8.0); NEUT % 68.8 % (16.0-70.0); PLATELET COUNT 94 TH/MM3 (150-450); RED BLOOD COUNT 2.93 MIL/MM3 (4.50-5.90); RED CELL DISTRIBUTION WIDTH 14.8 % (11.6-17.2); WHITE BLOOD COUNT 4.7 TH/MM3 (4.0-11.0)
[2016-07-13 06:02] LABS: BACTERIA, URINE RARE /hpf; BLOOD, URINE MOD (NEG); GLUCOSE,URINE NEG (NEG); KETONE, URINE 10 mg/dL (NEG); MUCUS URINE FEW /lpf (OCC); NITRITE,URINE NEG (NEG); PH, URINE 5.5 (5.0-8.5); SQUAMOUS EPITHELIAL CELL URINE <1 /hpf (0-5); URINE COLOR YELLOW (YELLW/STRAW)
[2016-07-13 06:03] LABS: COMMENT (UR) CATH-CULTURE IND; CULTURE IF INDICATED CATH CULTURE IND
[2016-07-13 06:04] LABS: HEMO FLAGS AUTO DIFF
[2016-07-13 06:06] LABS: APTT (PATIENT) 37.2 SEC (24.3-30.1); INTERNATIONAL NORMALIZED RATIO 1.1 RATIO; PROTHROMBIN TIME - PATIENT 12.6 SEC (9.8-11.6)
[2016-07-13 06:21] LABS: BICARBONATE 23.8 MEQ/L (21.0-32.0); POTASSIUM 4.3 MEQ/L (3.5-5.1)
[2016-07-13] MEDS: fentaNYL DRIP 250 ML IV SCH (06:54)
--- NOTE | 2016-07-13 07:00 | RADRPT ---
EXAM DATE/TIME: 07/13/2016 05:05 [facility] COMPARISON: CHEST SINGLE AP, July 12, 2016, 2:46. INDICATIONS : Evaluate after respiratory failure s/p trauma alert. MEDICAL HISTORY : unobtainable SURGICAL HISTORY : Unobtainable, Ortho (multiple) ENCOUNTER: Initial ACUITY: 2 days PAIN SCORE: Non-responsive. LOCATION: Bilateral chest FINDINGS: Endotracheal tube tip 2 cm above the tyrone. Gastric tube tip and side-port project within the stoma ch. Interval development of patchy areas of partial consolidative infiltrate left mid and lower lung with loss of delineation of the medial left hemidiaphragm. The right lung is clear. Right subclavi an catheter sheath in place. CONCLUSION: Interval development of patchy areas of partial consolidation left medial lower lung. Bruno Vora MD on July 13, 2016 at 6:57 Board Certified Radiologist. This report was verified electronically.
[2016-07-13 08:16] LABS: PLATELET ESTIMATE SMEAR LOW (NORMAL); PLATELET MORPHOLOGY NORMAL (NORMAL); SCAN/DIFF AUTO DIFF CONFIRMED
[2016-07-13] MEDS: DOCUSATE SODIUM 100 MG CAP PO SCH ×2 (08:32→20:22)
[2016-07-13] MEDS: PANTOPRAZOLE SODIUM 40 MG VIAL IV PUSH SCH (08:32)
[2016-07-13] MEDS ORDERED: FUROSEMIDE 40 MG/4 ML VIAL IV PUSH ONE (09:45)
[2016-07-13 10:16] LABS: BLOOD GAS BASE EXCESS -4.7 mmol/L (-2-2); BLOOD GAS CARBOXYHEMOGLOBIN 1.3 % (0-4); BLOOD GAS HCO3 21 mmol/L (22-26); BLOOD GAS METHEMOGLOBIN 1.1 % (0-2); BLOOD GAS O2 HGB SATURATION 97 % (90-100); BLOOD GAS OXYGEN CONTENT 12.9 Vol % (12.0-20.0); BLOOD GAS PCO2 44 mmHg (38-42); BLOOD GAS PO2 160 mmHg (61-120); BLOOD GAS TOTAL HGB 9.2 G/DL (12.0-16.0); CRITICAL VALUE NO; TEMP CORR TO 98.6
[2016-07-13 10:17] LABS: DRAW SITE ART LINE; FIO2 40 %; OXYGEN DEVICE VENTILATOR; STAT NO; VENT SETTINGS CPAP5/10PS
[2016-07-13] MEDS ORDERED: LEVO.15 PO (12:36)
[2016-07-13] MEDS ORDERED: BUPR150CR PO (12:36)
[2016-07-13] MEDS ORDERED: BENZ1TAB PO (12:36)
[2016-07-13] MEDS ORDERED: TRIL600T PO (12:36)
[2016-07-13] MEDS ORDERED: GEOD80CA PO (12:36)
--- NOTE | 2016-07-13 13:00 | OTSOAPIP ---
TIME SESSION COMPLETED: 1300 TREATMENT TIME: 0 MINS. CHART REVIEWED. PATIENT ADMITTED AFTER A SUICIDAL ATTEMPT BY JUMPING OFF A BRIDGE AND LANDING ON RAILROAD TRACKS. PATIENT IS STATUS POST * OPEN REDUCTION INTERNAL FIXATION RIGHT FEMUR FRACTURE * OPEN REDUCTION INTERNAL FIXATION LEFT PATELLA FRACTURE * OPEN REDUCTION INTERNAL FIXATION OF LEFT ELBOW FRACTURE * OPEN REDUCTION INTERNAL FIXATION LEFT WRIST FRACTURE INTERDISCIPLINARY COMMUNICATION: SPOKE WITH NURSE "EZ WHO REQUESTED PATIENT TO BE SEEN TOMORROW BECAUSE THEY ARE ABOUT TO EXTUBATED PATIENT AND WOULD LIKE PATIENT TO FOCUS ON HIS BREATHING. PLAN: WILL SEE PATIENT NEXT TREATMENT DAY Therapist: DORIAN NORMAN/Namita Signature on file
[2016-07-13] MEDS ORDERED: HYDROmorphone HCL PF 1 MG/ML VIAL IV PUSH PRN (14:00)
[2016-07-13] MEDS ORDERED: oxyCODONE/ACETAMINOPHEN 5 MG/325 MG TAB PO PRN (14:00)
--- NOTE | 2016-07-13 14:48 | HHI.CCPN ---
Subjective Brief History 40-year-old male with known schizophrenic and allegedly on medication [place] and laid there for about 4 hours prior to be found and then picked up by EMS Patient was brought in as a priority 1 trauma alert intubated on spinal board with a c-collar in place. Initial hemoglobin was 3 patient was severely hypothermic and is severe hypovolemic hemorrhagic shock Mass transfusion protocol was initiated patient was resuscitated according to the trauma principles Patient sustained multiple injuries including Intra-abdominal hemorrhage with likely spleen laceration Left femoral fracture Left pubic and sacral fractures Left open elbow fracture Bilateral ulnar radial fractures open CT head - left sphenoid fracture - CT maxillofacial no fracture seen CT C-spine - negative CT T spine -20% endplate T12 compression fracture CT L-spine - negative CT chest - negative Patient was resuscitated and taken to the operating room for the emergent fixation of the open orthopedic injuries and then transferred to ICU for further care 24 Hour Review/Hospital Course Patient arrives in the ICU normotensive and hypothermic to temperature of about 94F Resuscitation was continued in the intensive care unit Initial laboratory studies show resolution of anemia with hemoglobin of 11 Platelets are pending and coagulation profile is slowly improving Patient will be taken to the CT of abdomen and pelvis with IV and by mouth contrast later on this afternoon when hemodynamically more stable and normothermic 07/12/16 addendum Patient underwent a repeat CAT scan of abdomen and pelvis with IV and by mouth contrast and this reveals same amount of fluid in the pelvis and around the spleen subphrenic without perforation free air or any sign of intra-abdominal leak Will continue managing patient conservatively as far as the abdominal injuries are concerned Should patient bleed then things may change 07/13/16 Patient doing very well Remained stable throughout the night with requirement some additional crystalloids and colloids Hemoglobin is stable with calculation of dilutional effect Patient to be extubated today Objective Vital Signs Date Time Temp Pulse Resp B/P Pulse Ox O2 Delivery O2 Flow Rate FiO2 07/13/16 14:00 123 07/13/16 13:45 96 Nasal Cannula 3.00 07/13/16 12:00 100.4 11 114/66 07/13/16 12:00 40 Intake and Output 07/12/16 07/12/16 07/13/16 08:00 16:00 00:00 Intake Total 713 ml 3128 ml Output Total 1150 ml 2075 ml Balance -437 ml 1053 ml Result Diagram: 07/13/16 0515 07/13/16 0515 Other Results Laboratory Tests Test 07/13/16 07/13/16 04:50 10:02 Blood Gas Puncture Site MARY ART LINE Blood Gas Patient Temperature 98.6 98.6 Blood Gas HCO3 22 mmol/L 21 mmol/L (22-26) (22-26) Blood Gas Base Excess -2.6 mmol/L -4.7 mmol/L (-2-2) (-2-2) Blood Gas Oxygen Saturation 97 % (90-100) 97 % (90-100) Arterial Blood pH 7.34 7.30 (7.380-7.420) (7.380-7.420) Arterial Blood Partial 43 mmHg (38-42) 44 mmHg (38-42) Pressure CO2 Arterial Blood Partial 143 mmHg 160 mmHg Pressure O2 (61-120) (61-120) Arterial Blood Oxygen Content 12.3 Vol % 12.9 Vol % (12.0-20.0) (12.0-20.0) Arterial Blood 1.4 % (0-4) 1.3 % (0-4) Carboxyhemoglobin Arterial Blood Methemoglobin 1.2 % (0-2) 1.1 % (0-2) Blood Gas Hemoglobin 8.8 G/DL 9.2 G/DL (12.0-16.0) (12.0-16.0) Oxygen Delivery Device VENTILATOR VENTILATOR Blood Gas Ventilator Setting PRVC/R16/550/0.9/+5 CPAP5/10PS Blood Gas Inspired Oxygen 40 % 40 % Imaging Last 24 hours Impressions Chest X-Ray 07/13/16 0000 Signed Impressions: Service Date/Time: Wednesday, July 13, 2016 05:05 - CONCLUSION: Interval development of patchy areas of partial consolidation left medial lower lung. Bruno Vora MD Exam TRAINING SPECIALIST Patient is awake alert and oriented cannulation of propofol Hemodynamic/Cardiac Hemodynamically remains stable with good cardiac output and stable hemoglobin Pulmonary/Respiratory Bilateral good breath sounds decreased level of ventilatory support and extubated this morning Abdomen/GI Nutrition Abdomen is soft slightly tender in the left upper quadrant than left hemiabdomen but no rebound no guarding is noted and no distention is noted Patient will be started on clear liquids after extubation I would avoid advancement of the diet for at least day or 2 considering possible splenic injury and delayed bleeding eventuality Assessment and Plan Attestation The exam, history, and the medical decision-making described in the above note were completed with the assistance of the mid-level provider. I reviewed and agree with the findings presented. I attest that I had a [id number] encounter with the patient on the same day, and personally performed and documented my assessment and findings in the medical record. Critical care time 40 minutes. Gino Gimenez MD Jul 13, 2016 14:47
[2016-07-13] MEDS: ZIPRASIDONE HCL 80 MG CAP PO SCH ×2 (15:12→20:23)
[2016-07-13] MEDS: LEVOTHYROXINE SODIUM 150 MCG TAB PO SCH (15:12)
[2016-07-13] MEDS ORDERED: PILL SPLITTER OTHER PRN (16:15)
[2016-07-13] MEDS: METOPROLOL TARTRATE 25 MG TAB PO SCH ×2 (16:35→20:22)
[2016-07-13] MEDS: OXcarbazepine 600 MG TAB PO SCH (17:35)
--- NOTE | 2016-07-13 17:54 | HHI.NSPN ---
History Chief Complaint: No complaints Interval History 40 y.o. attempted suicide, jumped [place] bridge onto railroad track. Exam Results Vital Signs Date Time Temp Pulse Resp B/P Pulse Ox O2 Delivery O2 Flow Rate FiO2 07/13/16 16:00 124 07/13/16 16:00 100.4 21 132/83 96 Arterial Line 07/13/16 13:45 Nasal Cannula 3.00 07/13/16 12:00 40 Intake and Output 07/12/16 07/12/16 07/13/16 08:00 16:00 00:00 Intake Total 713 ml 3128 ml Output Total 1150 ml 2075 ml Balance -437 ml 1053 ml Physical Examination Extubated Awake and alert Flat affect Answers a few simple questions appropriately Follow simple commands Poor eye contact Pupils 3 mm reactive to 2 mm Extraocular movements intact Facial motor movements symmetric Sensation intact by touch all extremities Moves fingers both hands. Movements feet and toes with good strength bilateral Left upper extremity and bilateral lower extremity splints in place-difficult to obtain accurate evaluation of sensory motor function. Ester's response absent bilateral No ankle clonus Lab, Micro, Other Results Laboratory Tests Test 07/13/16 07/13/16 07/13/16 07/13/16 04:50 05:15 05:20 10:02 Blood Gas Puncture Site MARY ART LINE Blood Gas Patient Temperature 98.6 98.6 Blood Gas HCO3 22 mmol/L 21 mmol/L Blood Gas Base Excess -2.6 mmol/L -4.7 mmol/L Blood Gas Oxygen Saturation 97 % 97 % Arterial Blood pH 7.34 7.30 Arterial Blood Partial 43 mmHg 44 mmHg Pressure CO2 Arterial Blood Partial 143 mmHg 160 mmHg Pressure O2 Arterial Blood Oxygen Content 12.3 Vol % 12.9 Vol % Arterial Blood 1.4 % 1.3 % Carboxyhemoglobin Arterial Blood Methemoglobin 1.2 % 1.1 % Blood Gas Hemoglobin 8.8 G/DL 9.2 G/DL Oxygen Delivery Device VENTILATOR VENTILATOR Blood Gas Ventilator Setting PRVC/R16/550/0.9/+5 CPAP5/10PS Blood Gas Inspired Oxygen 40 % 40 % White Blood Count 4.7 TH/MM3 Red Blood Count 2.93 MIL/MM3 Hemoglobin 9.1 GM/DL Hematocrit 25.2 % Mean Corpuscular Volume 86.2 FL Mean Corpuscular Hemoglobin 31.1 PG Mean Corpuscular Hemoglobin 36.1 % Concent Red Cell Distribution Width 14.8 % Platelet Count 94 TH/MM3 Mean Platelet Volume 8.1 FL Neutrophils (%) (Auto) 68.8 % Lymphocytes (%) (Auto) 18.5 % Monocytes (%) (Auto) 9.7 % Eosinophils (%) (Auto) 2.5 % Basophils (%) (Auto) 0.5 % Neutrophils # (Auto) 3.2 TH/MM3 Lymphocytes # (Auto) 0.9 TH/MM3 Monocytes # (Auto) 0.5 TH/MM3 Eosinophils # (Auto) 0.1 TH/MM3 Basophils # (Auto) 0.0 TH/MM3 CBC Comment AUTO DIFF Differential Comment AUTO DIFF CONFIRMED Platelet Estimate LOW Platelet Morphology Comment NORMAL Red Cell Morphology Comment NORMAL Prothrombin Time 12.6 SEC Prothromb Time International 1.1 RATIO Ratio Activated Partial 37.2 SEC Thromboplast Time Fibrinogen 214 mg/dL Sodium Level 142 MEQ/L Potassium Level 4.3 MEQ/L Chloride Level 110 MEQ/L Carbon Dioxide Level 23.8 MEQ/L Anion Gap 8 MEQ/L Blood Urea Nitrogen 7 MG/DL Creatinine 1.00 MG/DL Estimat Glomerular Filtration 64 ML/MIN Rate Random Glucose 85 MG/DL Calcium Level 7.5 MG/DL Urine Color YELLOW Urine Turbidity CLEAR Urine pH 5.5 Urine Specific [place] 1.014 Urine Protein TRACE mg/dL Urine Glucose (UA) NEG mg/dL Urine Ketones 10 mg/dL Urine Occult Blood MOD Urine Nitrite NEG Urine Bilirubin NEG Urine Urobilinogen LESS THAN 2.0 MG/DL Urine Leukocyte Esterase SMALL Urine RBC 22 /hpf Urine WBC 9 /hpf Urine Squamous Epithelial <1 /hpf Cells Urine Bacteria RARE /hpf Urine Mucus FEW /lpf Microscopic Urinalysis Comment CATH-CULTURE IND Medical Decision Making Impression and Plan Impression: 1. Approximately 20% T12 compression fracture without significant retropulsion. No subluxation. 2. Right sacral alar fracture 3. No definite traumatic brain injury Recommendations: Discussed with family in room today May be mobilized out of bed with TLSO brace from neurosurgical standpoint. Okay to begin Lovenox for DVT prophylaxis from neurosurgical standpoint. Kip Larsen MD Jul 13, 2016 17:54
[2016-07-13] MEDS ORDERED: ACETAMINOPHEN 325 MG TAB PO PRN (19:15)
[2016-07-13] MEDS ORDERED: LEVOFLOXACIN 500 MG PREMIX INJ 100 ML IV SCH (20:00)
[2016-07-13] MEDS: buPROPion HCL 150 MG SUSTAINED RELEASE TAB PO SCH (20:22)
[2016-07-13] MEDS ORDERED: BENZTROPINE MESYLATE 1 MG TAB PO SCH (21:00)
[2016-07-14] VITALS (11 sets, daily range): BP systolic 136–148; BP diastolic 68–83; PULSE 96–122; RESP 17–24; TEMP 99.9–100.8; O2SAT 95–98
[2016-07-14] MEDS: CHLORHEXIDINE GLUCONATE 2 % 1 PACK (2 CLOTHS) TOP SCH (04:00)
[2016-07-14 06:00] LABS: HEMATOCRIT 26.1 % (39.0-51.0); MEAN CELL VOLUME 86.5 FL (80.0-100.0); MEAN CORPUSCULAR HEMOGLOBIN 30.8 PG (27.0-34.0); MEAN CORPUSCULAR HGB CONC 35.6 % (32.0-36.0); PLATELET COUNT 90 TH/MM3 (150-450); RED BLOOD COUNT 3.02 MIL/MM3 (4.50-5.90); RED CELL DISTRIBUTION WIDTH 14.5 % (11.6-17.2); WHITE BLOOD COUNT 6.1 TH/MM3 (4.0-11.0)
[2016-07-14] MEDS: LEVOTHYROXINE SODIUM 150 MCG TAB PO SCH (06:00)
[2016-07-14 06:26] LABS: BICARBONATE 27.3 MEQ/L (21.0-32.0); POTASSIUM 3.9 MEQ/L (3.5-5.1); REVIEW FLAG FINAL
--- NOTE | 2016-07-14 07:11 | PD.ORT.PN ---
Subjective Subjective Remarks s/p attempted suicide with jump from train bridge right femur fx s/p IMN left open patella fx s/p ORIF right patella fx left elbow dislocation/fx s/p exfix with reduction awake. responds to commands but limited responses Objective Vitals Vital Signs Date Time Temp Pulse Resp B/P Pulse Ox O2 Delivery O2 Flow Rate FiO2 07/14/16 06:00 96 07/14/16 04:00 104 07/14/16 04:00 99.9 104 22 136/68 97 07/14/16 02:00 109 07/14/16 00:00 100.8 104 24 140/77 96 07/14/16 00:00 104 07/13/16 22:00 106 07/13/16 21:08 96 Nasal Cannula 3.00 07/13/16 20:00 102 07/13/16 20:00 100.4 102 16 149/77 96 07/13/16 19:00 96 Nasal Cannula 3.00 07/13/16 18:00 119 07/13/16 16:00 124 07/13/16 16:00 100.4 125 21 132/83 96 Arterial Line 07/13/16 14:59 14 07/13/16 14:00 123 07/13/16 13:45 96 Nasal Cannula 3.00 07/13/16 13:45 96 Nasal Cannula 3 07/13/16 12:00 127 07/13/16 12:00 100.4 134 11 114/66 99 07/13/16 12:00 40 07/13/16 11:32 99 40 07/13/16 10:00 126 07/13/16 09:05 40 07/13/16 08:19 100 40 07/13/16 08:00 100.4 106 16 100/48 99 07/13/16 08:00 130 07/13/16 08:00 40 I/O 07/13/16 07/13/16 07/13/16 07/14/16 07/14/16 07/14/16 07:00 15:00 23:00 07:00 15:00 23:00 Intake Total 1533 ml 1031 ml 501 ml 333 ml Output Total 1350 ml 3100 ml 2000 ml 2200 ml Balance 183 ml -2069 ml -1499 ml -1867 ml Intake Oral 1533 ml 240 ml 0 ml IV Total 1031 ml 261 ml 333 ml Output Urine Total 1350 ml 3050 ml 2000 ml 2200 ml Gastric Drainage Total 50 ml # Bowel Movements 0 0 0 Result Diagram: 07/14/1643 07/14/1643 Objective Remarks LUE: +exfix. pin sites clean. minimal movement of fingers. good cap refill RLE: dressings clean and dry. + knee brace. 3+ swelling of patella LLE: +knee brace. dressings clean and dry. intact Assessment & Plan Assessment and Plan 1) Right intertroch/femoral shaft fx s/p IMN 2) Open left patella fx s/p ORIF 3) Right Patella Fx 4) Left Fx dislocation of elbow s/p reduction with exfix 5) Right Sacral fx - nondisplaced 6) Left Superior/inferior Rami Fxs - nondisplaced -CT scan left elbow -XR right knee -plan for surgery tomorrow Omer Griffiths Jul 14, 2016 07:11
[2016-07-14] MEDS: OXcarbazepine 600 MG TAB PO SCH ×3 (08:31→17:59)
[2016-07-14] MEDS: PANTOPRAZOLE SODIUM 40 MG VIAL IV PUSH SCH (08:31)
[2016-07-14] MEDS: DOCUSATE SODIUM 100 MG CAP PO SCH (08:31)
[2016-07-14] MEDS: ZIPRASIDONE HCL 80 MG CAP PO SCH (08:32)
[2016-07-14] MEDS: buPROPion HCL 150 MG SUSTAINED RELEASE TAB PO SCH (08:32)
[2016-07-14] MEDS: BACITRACIN TOP OINT 15 GM TUBE TOP SCH (08:32)
[2016-07-14] MEDS ORDERED: MAGNESIUM HYDROXIDE SUSP 30 ML CUP PO SCH (09:00)
--- NOTE | 2016-07-14 09:23 | RADRPT ---
EXAM DATE/TIME: 07/14/2016 08:22 [facility] COMPARISON: No previous studies available for comparison. INDICATIONS : Right knee trauma, trauma alert MEDICAL HISTORY : None. SURGICAL HISTORY : multiple ortho ENCOUNTER: Subsequent ACUITY: 3 days PAIN SCORE: Non-responsive. LOCATION: Right knee FINDINGS: Comminuted patellar fracture is noted. Intramedullary line is seen bridging the distal femur. Align ment is anatomic about the knee. CONCLUSION: Patella fracture. Julius Barillas MD FACR on July 14, 2016 at 9:21 Board Certified Radiologist. This report was verified electronically.
[2016-07-14] MEDS: SODIUM CHLOR 0.9% 1000 ML INJ 1,000 ML IV SCH (10:20)
--- NOTE | 2016-07-14 14:25 | RADRPT ---
EXAM DATE/TIME: 07/14/2016 10:59 [facility] COMPARISON: FOREARM LEFT (1VW), July 12, 2016, 2:46. ELBOW LEFT (1 VW), July 12, 2016, 7:45. INDICATIONS : Evaluating fracture, post opperative. RADIATION DOSE: 46.80 CTDIvol (mGy) MEDICAL HISTORY : unobtainable SURGICAL HISTORY : Unobtainable ENCOUNTER: Subsequent ACUITY: 2 days PAIN SCALE: Non-responsive LOCATION: Left Elbow TECHNIQUE: Volumetric scanning of the elbow was performed. Using automated exposure control and adjustment of t mA and/or kV according to patient size, radiation dose was kept as low as reasonably achievable to obtain optimal diagnostic quality images. FINDINGS: BONES: There is an external fixator traversing the proximal ulnar diaphysis and distal humerus. The ulna enedelia ears appropriately aligned with respect to the adjacent trochlea. There is a comminuted fracture of t he radial head and the radius is displaced superiorly with respect to the adjacent capitellum. There are fracture fragments adjacent to the radial head. JOINTS: Small joint effusion. There is a fracture fragment identified in the region of the olecranon rosie a. SOFT TISSUES: Muscles, tendons and neurovascular structures are grossly unremarkable. CONCLUSION: Fracture displacement of the radial head. Fracture fragment identified within the liver or fossa.. Helena Pena MD on July 14, 2016 at 12:41 Board Certified Radiologist. This report was verified electronically.
--- NOTE | 2016-07-14 14:38 | PD.HHIRCNE ---
Patient History Record/History Review Medical Information Review: Hx of present illness, Prior Medical Hx Reason for Referral: The patient is a 40 year old unknown handed male status post suicide attempt of jumping off of a bridge onto railroad tracks. According to EMS, this patient was likely laying on the ground for several hours before being found. From the attempt, he sustained fractures of three of four of his extremities. He is referred for baseline neurobehavioral status evaluation to assess his cognitive , behavioral and emotional aspects of the injury. Past Surgical/Medical History Past Surgery: No Major surgery in last 100 days: Unknown Hx of Neuro Prob: Yes (bipolar, schizophrenia) Hx Seizures: No Cephalgia (Headaches): No Hx Falls: No Hx Cerebrovascular Accident: No Hx Dizziness: Yes (with medication, side effect) Hx Numbness: No Hx of Musculoskeletal Pro: Yes (possible arthritis, joint pain) Hx Arthritis: Yes (possible) Hx Osteoporosis: No Hx Neck Problems: Yes (stiff neck a week ago (current 07/12/16), does not have now) Hx Back Problem: No Hx of Cardiovascular Prob: No Hx of Respiratory Problem: No Hx of GI Problems: Yes (sometimes when he eats, will have diarrhea and throw up randomly) Hx Heartburn: No Hx Gastroesophageal Reflux: No Hx Hiatal Hernia: No Hx Ulcer: No Hx Liver Disease: No Hx Gallbladder Disease: No Hx Inflammatory Bowel Disease: No Hx of Problems: No Hx of Immuno Disor: No Hx of Endocrine Problems: Yes (hypothyroidism) Hx Thyroid Disease: Yes (hypothyroid) Hx Diabetes: No Does Patient Currently Take Gl: No Diabetic Diagnosed 3 Months Or: No Hx of Eye Probl: Yes (wears glasses) Hx of Hearing or Ear Problems: No Hx Dental Problems: No Hx Psychiatric Problems: Yes (bipolar, schizoeffective disorder) Hx Anxiety: Yes Hx Depression: Yes Hx Blood Dyscrasias: No Hx of MDRO: No Hx of MRSA: No Hx of VRE: No Hx of CDIFF: No Hx of Tuberculosis: No If No, Have You Been Exposed W: No Hx of Body/Medical Devices: No Blood Transfusion History Will receive Blood /Blood prod: Yes Hx Blood Transfusions: No Medication Active Medications Acetaminophen (Tylenol) 650 mg Q8H PRN PO Last administered on 07/14/16t 13:37; Admin Dose 650 MG; Start 07/13/16 at 19:15 Benztropine Mesylate (Cogentin) 1 mg HS PO Last administered on 07/13/16 20:22; Admin Dose 1 MG; Start 07/13/16 at 21:00 Bupropion HCl (Wellbutrin Sr) 150 mg Q12HR PO Last administered on 07/14/16 08: 32; Admin Dose 150 MG; Start 07/13/16 at 21:00 Levofloxacin/ Dextrose (Levaquin 500 Mg Premix Inj) 100 ml @ 100 mls/hr DAILY@ 2000 IV Last administered on 07/13/16 20:20; Admin Dose 100 MLS/HR; Start at 20:00; Stop 07/19/16 at 20:59 Levothyroxine Sodium (Synthroid) 150 mcg DAILY@0600 PO Last administered on 06:00; Admin Dose 150 MCG; Start 07/13/16 at 14:30 Magnesium Hydroxide (Milk Of Magnmichelle Liq) 30 ml DAILY PO Last administered on 09:23; Admin Dose 30 ML; Start 07/14/16 at 09:00 Metoprolol Tartrate (Lopressor) 12.5 mg Q12HR PO Last administered on 07/13/16 20:22; Admin Dose 12.5 MG; Start 07/13/16 at 16:30 Miscellaneous 1 ea 1 ea UNSCH PRN OTHER; Start 07/13/16 at 16:15 Oxcarbazepine (Trileptal) 600 mg TID PO Last administered on 07/14/16 12:41; Admin Dose 600 MG; Start 07/13/16 at 18:00 Ziprasidone (Geodon) 80 mg BID PO Last administered on 07/14/16 08:32; Admin Dose 80 MG; Start 07/13/16 at 14:30 Mental Status Assessment Orientation: oriented to Self, unable to asses Place, unable to asses Time, unable to asses Situation Observation The patient is alert yet oriented only to person and he states that he was admitted because he attempted to kill himself. He will not answer any direct questions concerning orientation to place or time. In terms of attention skills , the patient refused to answer direct questions to assess his ability to remain on task or to ascertain his ability to remember basic or complex instructions. The patient did not initiate spontaneous conversation. When he did speak, his speech was characterized by adequate prosody, grammar, and articulation, but diminished volume and rate. The patient appears to posses poor insight and awareness into their situation and within the limits of this brief evaluation, poor judgment. Adjustment/Coping Assessment Adjustment/Coping: Severe: Depression, Anxiety, Apathy, Awareness, Insight Affect: Flat/Constricted Observation The patients thought content was unable to be assessed due to his unwillingness to answer the examiner's questions. The patients thought processes were impoverished. The patients mood was apathetic, and his affect was flat and constricted. Impression LTG Status: Deferred STG Status: Deferred Team Members: Neuropsychologist Behavior Assessment Agitation: None Treatment Engagement: No effort Observation Behaviorally, the patient demonstrated apathy and minimal engagement. LTG - Status: Deferred STG Status: Deferred Team Members: Neuropsychologist Feedback/Education Barriers to Treatment: Psychiatric Disorder Diagnosis/Discharge Plan Impression This 40 year old man with a prior yet unknown psychiatric history was admitted for suicide attempt, sustaining multiple orthopedic trauma in the attempt. It is unclear whether he sustained significant brain-related trauma in the attempt , but it appears unlikely given his clinical presentation and review of medical records. Diagnostically, the most likely diagnosis is a Bipolar Disorder, although it is unclear whether he meets criteria for Type I versus Type II, given that we do not know his clinical history of whether he has had a prior manic episode (versus a hypomanic episode). There was also a diagnostic concern that he suffers from a schizophrenic condition, which based on his presentation seems unlikely. At present, this patient appears catatonic which may improve throughout the course of his hospitalization. Diagnosis: Maximizing acute care outcome It is recommended that the patient be monitored on an ongoing basis given his psychiatric condition that underlies his multiple medical issues. Discharge Planning Anticipated Problems Ongoing areas of concern will include behavioral impulsivity and his lack of insight and judgment, all of which are related to his psychiatric situation. Presently, the patient is not following commands from a volitional standpoint. Barriers to Discharge: Risk of Harm to Self Treatment Plan This clinician will continue to follow with you throughout the course of this patients rehabilitation treatment, and I will be available to meet with the patients family/support system to facilitate their understanding and the ongoing care of their family member. The goals of neuropsychological intervention shall be both educational and supportive to the family/support system as is deemed clinically appropriate. Additionally, I would recommend a referral to Dr. Cantu for ongoing patient and family adjustment issues if they are coming to [place]. Session Attendance Variance 30 minutes, which included team consultation, chart review, patient assessment and report write-up. Thank you Thank you for the opportunity to assist in this patients care. Ton Gaspar, Ph.D., ABPP Board Certified in Clinical Neuropsychology [facility] Board of Professional Psychology [place] Licensed Psychologist #[id number] Ton Gaspar PhD Jul 14, 2016 2:38 pm
--- NOTE | 2016-07-14 15:11 | HHI.CCPN ---
Subjective Brief History 40-year-old male with known schizophrenic and allegedly on medication [place] tracks and laid there for about 4 hours prior to be found and then picked up by EMS Patient was brought in as a priority 1 trauma alert intubated on spinal board with a c-collar in place. Initial hemoglobin was 3 patient was severely hypothermic and is severe hypovolemic hemorrhagic shock Mass transfusion protocol was initiated patient was resuscitated according to the trauma principles Patient sustained multiple injuries including Intra-abdominal hemorrhage with likely spleen laceration Left femoral fracture Left pubic and sacral fractures Left open elbow fracture Bilateral ulnar radial fractures open CT head - left sphenoid fracture - CT maxillofacial no fracture seen CT C-spine - negative CT T spine -20% endplate T12 compression fracture CT L-spine - negative CT chest - negative Patient was resuscitated and taken to the operating room for the emergent fixation of the open orthopedic injuries and then transferred to ICU for further care 24 Hour Review/Hospital Course Patient arrives in the ICU normotensive and hypothermic to temperature of about 94F Resuscitation was continued in the intensive care unit Initial laboratory studies show resolution of anemia with hemoglobin of 11 Platelets are pending and coagulation profile is slowly improving Patient will be taken to the CT of abdomen and pelvis with IV and by mouth contrast later on this afternoon when hemodynamically more stable and normothermic 07/12/16 addendum Patient underwent a repeat CAT scan of abdomen and pelvis with IV and by mouth contrast and this reveals same amount of fluid in the pelvis and around the spleen subphrenic without perforation free air or any sign of intra-abdominal leak Will continue managing patient conservatively as far as the abdominal injuries are concerned Should patient bleed then things may change 07/13/16 Patient doing very well Remained stable throughout the night with requirement some additional crystalloids and colloids Hemoglobin is stable with calculation of dilutional effect Patient to be extubated today 07/14/16 Status post extubation on 3 L nasal cannula Awaiting the psychiatric consult Patient admits to being actively suicidal at this time (Mary Loyola ) Objective Vital Signs Date Time Temp Pulse Resp B/P Pulse Ox O2 Delivery O2 Flow Rate FiO2 07/14/16 14:47 22 07/14/16 12:00 112 07/14/16 12:00 100.2 145/83 95 07/14/16 07:30 Nasal Cannula 3.00 07/13/16 12:00 40 Intake and Output 07/13/16 07/13/16 07/14/16 08:00 16:00 00:00 Intake Total 1533 ml 1031 ml 501 ml Output Total 1350 ml 3100 ml 2000 ml Balance 183 ml -2069 ml -1499 ml (Mary Loyola) Result Diagram: 07/14/16 0543 07/14/16 0543 Imaging Last 24 hours Impressions Upper Extremity CT 07/14/16 0000 Signed Impressions: Service Date/Time: Thursday, July 14, 2016 10:59 - CONCLUSION: Fracture displacement of the radial head. Fracture fragment identified within the liver or fossa.. Helena Pena MD Knee X-Ray 07/14/16 0000 Signed Impressions: Service Date/Time: Thursday, July 14, 2016 08:22 - CONCLUSION: Patella fracture. Julius Barillas MD FACR (Mary Loyola) Exam [employer] GENERAL: 40-year-old well-nourished, well developed male lying in bed. SKIN: Warm and dry. Multiple facial abrasions. Right eyebrow lac with sutures. HEAD: Normocephalic. EYES: PERRL. ENT: No nasal bleeding or discharge. Mucous membranes pink and moist. NECK: Trachea midline. No JVD. CARDIOVASCULAR: Tachycardic rate and rhythm. RESPIRATORY: No accessory muscle use. Lungs clear to auscultation. Breath sounds equal bilaterally. GASTROINTESTINAL: Abdomen soft, non-tender, nondistended. + BS. Burrows catheter in place. MUSCULOSKELETAL: Extremities without cyanosis, +1 BLE edema. Bilateral lower extremities with soft splint in place. Left elbow ex-fix in place. NEUROLOGICAL: Awake and alert. Normal speech. PSYCHIATRIC: Flat affect (Mary Loyola) Assessment and Plan Plan ASSESSMENT AND PLAN: NEUROLOGICAL: Provide analgesia for comfort and pain -IV Dilaudid, Percocet Neurosurgery following- T12 fx HOB elevated > 30 degrees Neuropsych consult CARDIOVASCULAR: HR = sinus tachycardia. HR = 105-122 BPM. BP = stable Follow CMP - Electrolyte protocol in place for replacement. RESPIRATORY: 3 L nasal cannula Pulmonary toilet - L&S. Bronchodilators - Duonebs scheduled q4H and q2H PRN 07/13 CXR- interval development of patchy areas of partial consolidation of the left medial lower lung Labs PRN Chest X-Ray PRN GASTROINTESTINAL: Diet -regular Bowel regimen - Colace and MOM. No BM yet. RENAL / URINARY: I&O +799 BUN / creat 5 / 0.79 Burrows - in place to bedside drainage bag ENDOCRINE: BGM - 94 HEMATOLOGY: H&H: 9.3 / 26.1 PLT 90 Continue to monitor for signs and symptoms of bleeding. Transfuse for < 7.0 Monitor patient for any bleeding complications. INFECTIOUS DISEASE: Follow CBC WBC - 6.1 T-max 100.4 Urine culture negative Administer antipyretics for temp as needed. Maintain vigorous aseptic care of peripheral lines to avoid blood stream infections. Invasive lines: Burrows 07/12 PSYCHIATRIC: Wong savage Psychiatric consult recommends transfer to medical psych unit Patient actively psychotic Home psych meds restarted PROPHYLAXIS: GI -IV Protonix DVT - Mechanical VTE with SCDs. Chemical management with Lovenox on hold SKIN: Warm / Dry ACTIVITY: Status -bedrest PT and OT evaluating. CASE MANAGEMENT: Consulted for assist with DC planning. Placement - disposition will depend on patient progress. Patient will require inpatient psychiatric care when medically stable Plan of care discussed with RN at bedside. Patient is transferred to the med/psych unit when bed available. (Mary LoyolaP) Attestation Patient with multiple orthopedic injuries however no brain trauma chest or abdominal trauma Will need to rehabilitation acutely and I have discussed this with the psychiatrist who believes the patient is absolutely suicidal and he wants him transferred immediately to acute psychiatric [place] so he can keep an eye on him closely According to psychiatrist this is not patient did can be seen from time to time but the patient that's acutely psychotic and needs immediate and continue psychiatric care In the face of absence of any abdominal and chest injuries and presence of already for most part treated orthopedic injuries patient will be transferred to psychiatry because this is not taking the precedence and patient's care The exam, history, and the medical decision-making described in the above note were completed with the assistance of the mid-level provider. I reviewed and agree with the findings presented. I attest that I had a [id number] encounter with the patient on the same day, and personally performed and documented my assessment and findings in the medical record. Critical care time 50 minutes. (Gino Gimenez MD) Mary Loyola Jul 14, 2016 15:11 Gino Gimenez MD Jul 17, 2016 16:23
[2016-07-14] MEDS ORDERED: METOPROLOL TARTRATE 5 MG/5 ML VIAL IV PUSH ONE (15:15)
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
[2016-07-14] MEDS: ENOXAPARIN SODIUM 30 MG/0.3 ML SYRINGE SQ SCH (17:15)
[2016-07-14] MEDS ORDERED: RESP: ALBUTEROL 2.5 MG/IPRATROPIUM 0.5 MG NEB (PRN) NEB ×2 (18:00)
[2016-07-14] MEDS ORDERED: RESP: ALBUTEROL 2.5 MG/IPRATROPIUM 0.5 MG NEB (SCH) NEB (20:00)
[2016-07-15] MEDS ORDERED: ceFAZolin INJ 1,000 MG VIAL IV ONE (15:32)
[2016-07-15] MEDS ORDERED: VANCOMYCIN HCL 1000 MG VIAL OTHER ONE (15:37)
[2016-07-15] MEDS ORDERED: GENTAMICIN SULFATE 80 MG/2 ML VIAL IRRIGATION ONE (15:40)
[2016-07-15] MEDS ORDERED: HYDR-3366 PO (18:51)
[2016-07-15] MEDS ORDERED: XARE10TA PO (18:51)
== END 2016-07-14 18:10 | DRG 956 ==
LOC: NEPI 02:51 → NEDA 03:26 → EDBD 03:26 → N03B 11:00
PROVIDERS: ADMIT Surgery; ATTEND Surgery
PROC: 0RSMXZZ Reposition Left Elbow Joint, External Approach (ICD-10-PCS; 2016-07-12)
PROC: 30233N1 Transfusion of Nonautologous Red Blood Cells into Peripheral Vein, Percutaneous Approach (ICD-10-PCS; 2016-07-12)
PROC: 5A1935Z Respiratory Ventilation, Less than 24 Consecutive Hours (ICD-10-PCS; 2016-07-12)
PROC: 0BH17EZ Insertion of Endotracheal Airway into Trachea, Via Natural or Artificial Opening (ICD-10-PCS; 2016-07-12)
PROC: 0QS606Z Reposition Right Upper Femur with Intramedullary Internal Fixation Device, Open Approach (ICD-10-PCS; principal; 2016-07-12 04:34)
PROC: 0QS806Z Reposition Right Femoral Shaft with Intramedullary Internal Fixation Device, Open Approach (ICD-10-PCS; 2016-07-12 04:34)
PROC: 0QSF04Z Reposition Left Patella with Internal Fixation Device, Open Approach (ICD-10-PCS; 2016-07-12 04:34)
PROC: 0X3 Anatomical Regions, Upper Extremities, Control (ICD-10-PCS; 2016-07-12 04:34)
DX: S72.141A Displaced intertrochanteric fracture of right femur, initial encounter for closed fracture (principal); S32.592A Other specified fracture of left pubis, initial encounter for closed fracture; J96.00 Acute respiratory failure, unspecified whether with hypoxia or hypercapnia; T79.4XXA Traumatic shock, initial encounter; S22.080A Wedge compression fracture of T11-T12 vertebra, initial encounter for closed fracture; S52.122 Displaced fracture of head of left radius; S32.19XA Other fracture of sacrum, initial encounter for closed fracture; D62 Acute posthemorrhagic anemia; S82.002C Unspecified fracture of left patella, initial encounter for open fracture type IIIA, IIIB, or IIIC; S82.001A Unspecified fracture of right patella, initial encounter for closed fracture; S65.012A Laceration of ulnar artery at wrist and hand level of left arm, initial encounter; S36.039A Unspecified laceration of spleen, initial encounter; D69.6 Thrombocytopenia, unspecified; S72.391A Other fracture of shaft of right femur, initial encounter for closed fracture; Y93.89 Activity, other specified; Y92.85 Railroad track as the place of occurrence of the external cause; S61.512A Laceration without foreign body of left wrist, initial encounter; F25.0 Schizoaffective disorder, bipolar type; S00.91XA Abrasion of unspecified part of head, initial encounter; Z91.14 Patient's other noncompliance with medication regimen; Z81.8 Family history of other mental and behavioral disorders; F94.0 Selective mutism; E03.9 Hypothyroidism, unspecified
CPT/HCPCS: 25565; 31500; 36430; 36556; 51702; 70450; 70486; 71010; 71260; 72125; 72128; 72131; 72170; 73200; 73551; 73552; 73560; 74177; 76000; 80048; 80053; 80307; 80320; 81001; 82435; 82565; 82805; 82947; 83605; 83735; 84100; 84132; 84295; 84520; 85007; 85014; 85018; 85025; 85027; 85049; 85384; 85610; 85730; 86850; 86900; 86901; 86920; 87086; 87641; 90471; 94002; 94003; 96374; 96375; 99291; A0431-QM-SH; A0436-QM-SH; C1713; C9113; G0390; J0171; J0461; J0690; J1170; J1580; J1940; J1956; J2250; J2370; J2405; J3010; J3370; J3480; J7030; J7120; P9016; P9017; P9035; P9045; Q9963; Q9967

== ENCOUNTER 2016-07-14 17:56 | Inpatient (IN) | payer BC ==
[~2016-07-14 17:56] MED LIST: BENZ1TAB PO; BUPR150CR PO; GEOD80CA PO; LEVO.15 PO; TRIL600T PO
[2016-07-14 20:43] VITALS: BP 156/76; PULSE 119; RESP 17; TEMP 102; O2SAT 95
[2016-07-14] MEDS ORDERED: ALUMINUM/MAGNESIUM/SIMETH 30 ML CUP PO PRN (21:00)
[2016-07-14] MEDS ORDERED: MAGNESIUM HYDROXIDE SUSP 30 ML CUP PO PRN (21:00)
[2016-07-14] MEDS ORDERED: ACETAMINOPHEN 325 MG TAB PO PRN (21:00)
[2016-07-14] MEDS ORDERED: LORazepam 1 MG TAB PO PRN (21:00)
[2016-07-14] MEDS ORDERED: LORazepam 2 MG/ML VIAL IM PRN (21:00)
[2016-07-14] MEDS: ZIPRASIDONE HCL 80 MG CAP PO SCH (22:18)
[2016-07-14 22:48] VITALS: BP 151/73; PULSE 116; RESP 20; TEMP 98.3; O2SAT 96
[2016-07-15 03:00] VITALS: BP 115/63; PULSE 92; RESP 18; TEMP 97.5; O2SAT 100
[2016-07-15 07:37] LABS: ANION GAP 4 MEQ/L (5-15); BICARBONATE 29.8 MEQ/L (21.0-32.0); BLOOD UREA NITROGEN 7 MG/DL (7-18); CHLORIDE 105 MEQ/L (98-107); GLOMERULAR FILTRATION RATE 100 ML/MIN (>89); POTASSIUM 3.7 MEQ/L (3.5-5.1); SODIUM (NA) 139 MEQ/L (136-145)
[2016-07-15 07:40] LABS: HDL CHOLESTEROL 26.3 MG/DL (40.0-60.0); LDL CHOLESTEROL 51 MG/DL (0-99)
--- NOTE | 2016-07-15 07:55 | PD.ORT.PN ---
Subjective Subjective Remarks s/p right femur IMN s/p exfix left elbow s/p ORIF left patella s/p right patella fx s/p nonop pelvic fxs Objective Vitals Vital Signs Date Time Temp Pulse Resp B/P Pulse Ox O2 Delivery O2 Flow Rate FiO2 07/15/16 03:00 97.5 92 18 115/63 100 07/14/16 22:48 98.3 116 20 151/73 96 07/14/16 20:43 102.0 119 17 156/76 95 I/O 07/14/16 07/14/16 07/14/16 07/15/16 07/15/16 07/15/16 07:00 15:00 23:00 07:00 15:00 23:00 Intake Total 120 ml 550 ml Output Total 750 ml 250 ml Balance -630 ml 300 ml Intake Oral 120 ml 550 ml IV Total 0 ml Output Urine Total 750 ml 250 ml # Bowel Movements 0 Result Diagram: 07/15/16 0653 Objective Remarks LUE: +exfix. NVI LLE: dressings clean and dry. intact. +CKS RLE: +swelling. +CKS. NVI. dressings clean and dry. intact. Assessment & Plan Assessment and Plan 1) Right femur fx s/p IMN by Dr Bell 2) Left Patella s/p ORIF by Dr Bell 3) Left Elbow applicatin of exfix 4) Right patella fx 5) Pelvix fxs nonop -consents -surgery today -NPO Omer Griffiths Jul 15, 2016 07:55
[2016-07-15] MEDS ORDERED: MORPHINE SULFATE 4 MG/ML INJ IV PUSH PRN (08:00)
[2016-07-15] MEDS ORDERED: ACETAMINOPHEN/HYDROcodone 325 MG/7.5 MG TAB PO PRN (08:00)
[2016-07-15 08:18] VITALS: BP 124/63; PULSE 92; RESP 18; TEMP 98.6; O2SAT 99
[2016-07-15] MEDS: ZIPRASIDONE HCL 80 MG CAP PO SCH ×2 (08:51→21:59)
[2016-07-15] MEDS: ACETAMINOPHEN/HYDROcodone 325 MG/10 MG TAB PO PRN ×2 (08:52→22:10)
[2016-07-15] MEDS: OXcarbazepine 600 MG TAB PO SCH ×3 (08:52→21:59)
[2016-07-15] MEDS ORDERED: NICOTINE 21 MG/24 HR PATCH T-DERMAL SCH (09:00)
[2016-07-15] MEDS ORDERED: REMOVE OLD NICOTINE PATCH T-DERMAL SCH (09:00)
--- NOTE | 2016-07-15 10:18 | RADRPT ---
EXAM DATE/TIME: 07/15/2016 09:36 [facility] COMPARISON: CHEST SINGLE AP, July 13, 2016, 5:05. CT ELBOW LEFT W/O CONTRAST, July 14, 2016, 10:59. INDICATIONS : Fever. MEDICAL HISTORY : Hypothyroidism. Bipolar. Schizophrenia. SURGICAL HISTORY : ORIF left patella. Left elbow. ENCOUNTER: Subsequent ACUITY: 2 days PAIN SCORE: 3/10 LOCATION: Bilateral chest FINDINGS: Single AP upright portable view of the chest demonstrates a new left-sided pleural effusion as well a s progressive bibasilar airspace consolidation. The heart size is normal Pulmonary vasculature is normal. An endotracheal tube has been removed. Gastric tubing has also been removed. CONCLUSION: Interval extubation with new left-sided pleural effusion and basilar airspace atelectasis versus cons olidation.. Helena Pena MD on July 15, 2016 at 10:15 Board Certified Radiologist. This report was verified electronically.
--- NOTE | 2016-07-15 11:20 | HHI.PYPN ---
Subjective Remarks On psychiatric evaluation today patient was more cooperative that yesterday, still superficial and distant, but able to answer most of our questions. He was seen alone with director of social media marketing [place]. Patient states that he feels much better today, he denies any pain or distress at this moment. Patient states that he is happy that he is alive and he didn't , he clarified that he tried to commit suicide twice the same day, one was during his car to the [place], and then the second one jumping [place] the [place] rails. Patient does not elaborate in the reason of this suicidal attempt, but he says that he regrets it. He reports good mood, denies depression, denies any anxiety, denies visual and auditory hallucinations, denies suicidal or homicidal ideation at this moment. Patient is medication compliant, no reported side effects. During this evaluation no paranoia, delusions, irrational thoughts, ideas of reference, thought control, emily trevor, are reported or were elicited. Patient is fully oriented 3, no gross cognitive impairment, attention deficit, fluctuation of consciousness were observed or reported. Review of Systems Other No significant changes since 07/14/2016 Objective Alert: Yes [place]: Person, Place, Date, Situation Mood: Calm Affect: Flat Memory Intact: Immediate, Recent Hallucinations: Other (he denies) Delusions: No Delusion Type: Other (none) Suicidal: Ideation (he denies) Homicidal: Ideation (he denies) Insight/Judgement Poor Labs Test 07/15/16 06:53 Sodium Level 139 MEQ/L Potassium Level 3.7 MEQ/L Chloride Level 105 MEQ/L Carbon Dioxide Level 29.8 MEQ/L Anion Gap 4 MEQ/L Blood Urea Nitrogen 7 MG/DL Creatinine 0.84 MG/DL Estimat Glomerular Filtration 100 ML/MIN Rate Random Glucose 126 MG/DL Calcium Level 8.1 MG/DL Triglycerides Level 85 MG/DL Cholesterol Level 94 MG/DL LDL Cholesterol 51 MG/DL HDL Cholesterol 26.3 MG/DL Cholesterol/HDL Ratio 3.57 RATIO Date/Time Procedure Status Source Growth 07/14/16 21:55 Aerobic Blood Culture Received Blood Peripheral Pending 07/14/16 21:55 Anaerobic Blood Culture Received Blood Peripheral Pending 07/14/16 19:22 Urine Culture Received Urine Clean Catch Pending Vitals/IOs Vital Signs Date Time Temp Pulse Resp B/P Pulse Ox O2 Delivery O2 Flow Rate FiO2 07/15/16 08:18 98.6 92 18 124/63 99 Intake and Output 07/14/16 07/14/16 07/15/16 08:00 16:00 00:00 Intake Total 120 ml Output Total 750 ml Balance -630 ml Assessment & Plan Problem List: (1) Schizoaffective disorder, bipolar type Assessment & Plan: On psychiatric evaluation today patient seems to be more open and cooperative, however is still unable to elaborate about the circumstances of his recent suicidal attempt. Patient is still very fragile and vulnerable due to his multiple injuries. He does report he is happy to be alive and regrets his recent action. No signs or symptoms of delirium are observed at this moment. No paranoia, delusions, aggressive behavior, agitation , flight of ideas, trevor could be elicited. He doesn't seem to be internally preoccupied. However, due to the high and up is lethality of his recent suicidal attempt, lack of insight of his recent psychosis and to monitor medication compliant and adherent, the patient needs to continue his psychiatric hospitalization for stabilization and safety. If patient is to be retransferred to surgical floor, we will follow-up there. ICD Code: F25.0 Assessment & Plan Estimated LOS: days Justification for Cont. Inpt. Patient has recently attempted to commit suicide by jumping to a train trail resulting in multiple serious injuries. He represents a high risk of danger to self and has been reported to be acutely psychotic. He needs psychiatric hospitalization for stabilization and safety. Dariel Sanford MD Jul 15, 2016 11:20
[2016-07-15 11:55] LABS: AUTOMATED NEUTROPHIL # 3.4 TH/MM3 (1.8-7.7); BASOPHIL % 0.6 % (0.0-2.0); EOSINOPHIL # 0.1 TH/MM3 (0-0.4); EOSINOPHIL % 1.6 % (0.0-4.0); HEMATOCRIT 22.8 % (39.0-51.0); LYMPHOCYTE # 0.6 TH/MM3 (1.0-4.8); MEAN CELL VOLUME 88.8 FL (80.0-100.0); MEAN CORPUSCULAR HGB CONC 34.9 % (32.0-36.0); MONO % 11.4 % (0.0-8.0); NEUT % 74.4 % (16.0-70.0); PLATELET COUNT 99 TH/MM3 (150-450); RED BLOOD COUNT 2.57 MIL/MM3 (4.50-5.90); RED CELL DISTRIBUTION WIDTH 14.2 % (11.6-17.2); WHITE BLOOD COUNT 4.6 TH/MM3 (4.0-11.0)
[2016-07-15 11:58] LABS: HEMO FLAGS AUTO DIFF
--- NOTE | 2016-07-15 12:13 | PD.CONS ---
[facility] Reason for Consult Medical management status post, alert 07/12/2016 Primary Care Physician Unknown Diagnoses: History of Present Illness This a 50-year-old gentleman with a past medical history which includes hypothyroidism, bipolar and schizophrenia. Patient is status post trauma alert on 07/12/2016 secondary to suicide attempt patient jumped off a bridge onto railroad tracks. Patient sustained multiple fractures has been taken to the OR initially was in intensive care unit and intubated for airway protection as well as pain management. Patient was extubated 07/13/2016 and we have been consulted for assistance with medical management. Pertinent imaging: CT head - left sphenoid fracture - CT maxillofacial no fracture seen CT C-spine - negative CT T spine -20% endplate T12 compression fracture- per neurosurgery nonoperative recommend May be mobilized out of bed with TLSO brace from neurosurgical standpoint. CT L-spine - negative CT chest - negative CT abdomen pelvis - free fluid in pelvis/upper abdomen Left IT/midshaft femoral fracture, left pubic sacral and left patellar fractures Right left proximal radial/ulnar fracture with dislocation Surgical intervention intervention thus far: s/p right femur IMN s/p exfix left elbow s/p ORIF left patella right patella fx nonop pelvic fxs Patient received 4 units PRBCs, 1 FFP and platelets while in the OR. Patient resting in bed able to awake to verbal stimuli offers no specific complaints. Patient noticed to have a weak/soft voice. Patient does report occasional cough nonproductive but does sound moist in nature. Patient reports he is unsure how long the cough has been going on. Patient was noted to have a temperature of 102.0 07/14/2016 also noted to be tachycardic. Laboratory data is pending. Patient has a Burrows catheter pleasant denies dyspnea urea. Patient noted to have external fixation on left upper extremity and bilateral lower extremity immobilization devices. Per orthopedic surgery patient is planned have more surgery this today. Review of Systems Constitutional: COMPLAINS OF: Fever Respiratory: COMPLAINS OF: Cough, DENIES: Shortness of breath Cardiovascular: DENIES: Chest pain Other All other systems reviewed and negative except as mentioned above and in history of present illness Past Family Social History Allergies: Coded Allergies: Haldol (Verified Allergy, Unknown, 07/13/16) Past Medical History Bipolar, schizophrenia, hypothyroidism Past Surgical History Denies surgical intervention prior to this hospitalization Reported Medications Benztropine (Benztropine Mesylate) 1 Mg Tab 1 Mg PO HS Synthroid (Levothyroxine Sodium) 150 Mcg Tab 150 Mcg PO DAILY Wellbutrin SR 12 HR (Bupropion HCl) 150 Mg Tab 150 Mg PO Q12HR Geodon (Ziprasidone) 80 Mg Cap 80 Mg PO BID Trileptal (Oxcarbazepine) 600 Mg Tab 600 Mg PO TID Active Ordered Medications Current Medications Medications (Trade) Dose Ordered Sig/Jonathan Route Start Time Stop Time Status Last Admin (Ativan) 1 mg Q6H PRN PO 07/14/16 21:00 (Ativan Inj) 1 mg Q6H PRN IM 07/14/16 21:00 (Tylenol) 650 mg Q4H PRN PO 07/14/16 21:00 07/14/16 22:17 (Milk Of Magnesia Liq) 30 ml DAILY PRN PO 07/14/16 21:00 (Mag-Al Plus Susp Liq) 30 ml Q6H PRN PO 07/14/16 21:00 (Habitrol 21 Mg Patch.24 Hr) 1 patch DAILY T-DERMAL 07/15/16 09:00 Miscellaneous Information 1 DAILY T-DERMAL 07/15/16 09:00 (Trileptal) 600 mg TID PO 07/15/16 09:00 07/15/16 08:52 (Geodon) 80 mg BID PO 07/14/16 21:00 07/15/16 08:51 ([place] 7.5-325 Mg) 1 tab Q4H PRN PO 07/15/16 08:00 ([place] 10-325 Mg) 1 tab Q4H PRN PO 07/15/16 08:00 07/15/16 08:52 (Morphine Inj) 3 mg Q3H PRN IV PUSH 07/15/16 08:00 07/15/16 11:10 Family History Father had [place] at 60 Social History Denies EtOH use tobacco use or illicit drug use Physical Exam Vital Signs Vital Signs Date Time Temp Pulse Resp B/P Pulse Ox O2 Delivery O2 Flow Rate FiO2 07/15/16 08:18 98.6 92 18 124/63 99 07/15/16 03:00 97.5 92 18 115/63 100 07/14/16 22:48 98.3 116 20 151/73 96 07/14/16 20:43 102.0 119 17 156/76 95 Physical Exam GENERAL: This is a well-nourished, well-developed patient SKIN: Multiple lacerations and excoriated areas throughout entire body including face bilateral pressure most bilateral lower extremities. HEAD: Atraumatic. Normocephalic. No temporal or scalp tenderness. EYES: Extraocular motions intact. No scleral icterus. No injection or drainage. ENT: Nose without bleeding, purulent drainage or septal hematoma. Throat without erythema, tonsillar hypertrophy or exudate. Uvula midline. Airway patent. NECK: Trachea midline. No JVD or lymphadenopathy. Supple, nontender, no meningeal signs. CARDIOVASCULAR: Regular rate and rhythm without murmurs, gallops, or rubs. RESPIRATORY: Clear to auscultation. Breath sounds equal bilaterally. No wheezes , rales, or rhonchi. GASTROINTESTINAL: Abdomen soft, non-tender, nondistended. No guarding. MUSCULOSKELETAL: Bilateral lower extremity immobilizing devices present. Patient noted to have 1+to 2+ bilateral lower extremity pitting edema able to wiggle toes bilaterally. Left upper extremity in sling with external fixation device present able to wiggle fingers bilaterally NEUROLOGICAL: Awake and alert.Motor and sensory grossly within normal limits. Soft speech. Laboratory Laboratory Tests Test 07/15/16 06:53 Sodium Level 139 Potassium Level 3.7 Chloride Level 105 Carbon Dioxide Level 29.8 Anion Gap 4 Blood Urea Nitrogen 7 Creatinine 0.84 Estimat Glomerular Filtration 100 Rate Random Glucose 126 Calcium Level 8.1 Triglycerides Level 85 Cholesterol Level 94 LDL Cholesterol 51 HDL Cholesterol 26.3 Cholesterol/HDL Ratio 3.57 Date/Time Procedure Status Source Growth 07/14/16 21:55 Aerobic Blood Culture - Preliminary Resulted Blood Peripheral NO GROWTH IN 1 DAY 07/14/16 21:55 Anaerobic Blood Culture - Preliminary Resulted Blood Peripheral NO GROWTH IN 1 DAY 07/14/16 19:22 Urine Culture Received Urine Clean Catch Pending Result Diagram: 07/15/16 0653 Imaging Last Impressions Chest X-Ray 07/15/16 0000 Signed Impressions: Service Date/Time: Friday, July 15, 2016 09:36 - CONCLUSION: Interval extubation with new left-sided pleural effusion and basilar airspace atelectasis versus consolidation.. Helena Pena MD Assessment and Plan Assessment and Plan This a 50-year-old gentleman with a past medical history which includes hypothyroidism, bipolar and schizophrenia. Patient is status post trauma alert on 07/12/2016 secondary to suicide attempt patient jumped off a bridge onto railroad tracks. Patient sustained multiple fractures has been taken to the OR initially was in intensive care unit and intubated for airway protection as well as pain management. Patient was extubated 07/13/2016 and we have been consulted for assistance with medical management. Patient noticed to have a weak/soft voice. Patient does report occasional cough nonproductive but does sound moist in nature. Patient reports he is unsure how long the cough has been going on. Patient was noted to have a temperature of 102.0 07/14/2016 also noted to be tachycardic. Laboratory data is pending. Patient has a Burrows catheter pleasant denies dyspnea urea. Patient noted to have external fixation on left upper extremity and bilateral lower extremity immobilization devices. Per orthopedic surgery patient is planned have more surgery this today. Surgeries/fever of unknown origin Blood cultures 2 obtained and pending, UA C&S pending, chest x-ray ordered and pending Sputum culture ordered Consult speech for swallow evaluation Start vancomycin and Zosyn once cultures obtained Bipolar/schizophrenia/suicide attempt to be managed per psychiatric services Multiple orthopedic injuries s/p right femur IMN s/p exfix left elbow s/p ORIF left patella right patella fx nonop pelvic fxs managed by orthopedic surgery- plan for further surgical intervention today T12 fracture- followed by neurosurgery no surgical indication at this time TLSO brace when patient has out of bed Immobilized would like to start anticoagulation once okay with orthopedic surgery, Lovenox okay with neurosurgery per note on 07/13/2016 Written by Isabelal Luther, acting as scribe for Dr. Pedro on 07/15/16 at 12:12. The documentation accurately reflects the work performed [id number] by me on at 12:12. Isabella Luther Jul 15, 2016 12:13 Joel Basurto MD Jul 24, 2016 02:16
[2016-07-15] MEDS ORDERED: VANCOMYCIN INJ 1,250 MG in SODIUM CHLOR 0.9% 250 ML INJ 250 ML IV SCH (12:15)
[2016-07-15] MEDS ORDERED: Vancomycin Consult Pharmacy 1 EA OTHER SCH (12:15)
[2016-07-15 12:29] LABS: ALKALINE PHOSPHATASE 118 U/L (45-117); ALT (GPT) 33 U/L (12-78); ANION GAP 7 MEQ/L (5-15); AST (GOT) 46 U/L (15-37); BICARBONATE 27.5 MEQ/L (21.0-32.0); BLOOD UREA NITROGEN 8 MG/DL (7-18); CHLORIDE 105 MEQ/L (98-107); GLOMERULAR FILTRATION RATE 116 ML/MIN (>89); MAGNESIUM 1.8 MG/DL (1.5-2.5); POTASSIUM 3.6 MEQ/L (3.5-5.1); SODIUM (NA) 139 MEQ/L (136-145); TOTAL BILIRUBIN ADULT 1.1 MG/DL (0.2-1.0)
[2016-07-15 12:32] LABS: PLATELET ESTIMATE SMEAR LOW (NORMAL); PLATELET MORPHOLOGY NORMAL (NORMAL); SCAN/DIFF AUTO DIFF CONFIRMED
[2016-07-15 14:20] LABS: HEMOGLOBIN A1a 1.5 %; HEMOGLOBIN A1b 0.7 %; HEMOGLOBIN Ao 86.5 %; HEMOGLOBIN F 0.8 %; HEMOGLOBIN P3 3.4 %
[2016-07-15] MEDS ORDERED: ceFAZolin 2 GM PREMIX 50 ML ONE (14:25)
[2016-07-15] MEDS ORDERED: SODIUM CHLOR 0.9% 250 ML INJ 250 ML ONE (14:25)
[2016-07-15] MEDS ORDERED: VANCOMYCIN HCL 1000 MG VIAL ONE (14:25)
[2016-07-15] MEDS ORDERED: DEXAMETHASONE SOD PHOS 4 MG/ML VIAL ONE (14:32)
[2016-07-15] MEDS ORDERED: FAMOTIDINE 20 MG/2 ML VIAL ONE (14:32)
[2016-07-15] MEDS: VANCOMYCIN 1,000 MG/NS 250 ML IV SCH ×4 (15:00→23:00)
[2016-07-15] MEDS ORDERED: PHENYLEPH/NS 1000 MCG/10 ML SYR IV ONE (15:30)
[2016-07-15] MEDS ORDERED: PROPOFOL 200 MG/20 ML AMP IV ONE (15:30)
[2016-07-15] MEDS ORDERED: ONDANSETRON HCL 4 MG/2 ML VIAL IV PUSH ONE (15:30)
[2016-07-15] MEDS ORDERED: SODIUM CHLORID 0.9% 500 ML INJ 500 ML IV ONE (15:30)
[2016-07-15] MEDS ORDERED: GENTAMICIN SULFATE 80 MG/2 ML VIAL IRRIGATION ONE (15:40)
--- NOTE | 2016-07-15 15:41 | HHI.HP ---
Provisional Diagnosis Admission Date Jul 14, 2016 at 17:56 [place] I. Schizoaffective disorder bipolar type Certification of Person's Competence To Provide Express and Informed Consent I have personally examined Papo Washington , a person being served at [facility], [place] on, Jul 15, 2016 15:37. Express and informed consent means consent voluntarily given in writing, by a competent person, after sufficient explanation and disclosure of the subject matter involved to enable the person to make a knowing and willful decision without any element of force, fraud, deceit, duress, or other form of constraint or coercion. This person is 18 years of age or older, is not now known to be incompetent to consent to treatment with a guardian advocate, and does not have a health care surrogate or proxy currently making medical treatment decisions. I have found this person to be one of the following: [] Competent to provide express and informed consent, as defined above, for voluntary admission to this facility and is competent to provide express and informed consent for treatment. He/she has the consistent capacity to make well reasoned, willful, and knowing decisions concerning his or her medical or mental health treatment. The person fully and consistently understands the purpose of the admission for examination/placement and is fully capable of personally exercising all rights assured under [place] [] Incompetent to provide express and informed consent to voluntary admission, and this is incompetent to provide express and informed consent to treatment. The person must be transferred to involuntary status and a petition for a guardian advocate filed with the Circuit Court. [X] Refusing to provide express and informed consent to voluntary admission but is competent to provide express and informed consent for treatment. The person must be discharged or transferred to involuntary status. Form shall be completed within 24 hours of a person's arrival at the receiving facility and filed in the clinical record of each person: 1. Admitted on a voluntary basis 2. Permitted to provide express and informed consent to his/her own treatment 3. Allowed to transfer from involuntary to voluntary status 4. Prior to permitting a person to consent to his or her own treatment after having been previously found incompetent to consent to treatment. History of Present Illness Capacity: Has Capacity HPI A full psychiatric evaluation was performed by this verse writer on 07/14/2016 as a psychiatric consult in the surgical floor. With detail information about H&P, past psychiatric history, past medical history social history, recommendations, assessment and plan. Past Family Social History Coded Allergies: Haldol (Verified Allergy, Unknown, 07/13/16) Reported Medications Benztropine 1 Mg Tab1 Mg PO HS #30 TAB Ref 0 07/13/16 Levothyroxine (Synthroid)150 Mcg [id number] Mcg PO DAILY #30 TAB Ref 0 07/13/16 Bupropion HCl ER 12 HR (Wellbutrin SR 12 HR)150 Mg [id number] Mg PO Q12HR Ref 0 07/13/16 Ziprasidone (Geodon)80 Mg Cap80 Mg PO BID #60 CAP Ref 0 07/13/16 Oxcarbazepine (Trileptal)600 Mg [id number] Mg PO TID #60 TAB Ref 0 07/13/16 Current Medications Medications (Trade) Dose Ordered Sig/Jonathan Route Start Time Stop Time Status Last Admin (Ativan) 1 mg Q6H PRN PO 07/14/16 21:00 (Ativan Inj) 1 mg Q6H PRN IM 07/14/16 21:00 (Tylenol) 650 mg Q4H PRN PO 07/14/16 21:00 07/14/16 22:17 (Milk Of Magnesia Liq) 30 ml DAILY PRN PO 07/14/16 21:00 (Mag-Al Plus Susp Liq) 30 ml Q6H PRN PO 07/14/16 21:00 (Habitrol 21 Mg Patch.24 Hr) 1 patch DAILY T-DERMAL 07/15/16 09:00 Miscellaneous Information 1 DAILY T-DERMAL 07/15/16 09:00 (Trileptal) 600 mg TID PO 07/15/16 09:00 07/15/16 08:52 (Geodon) 80 mg BID PO 07/14/16 21:00 07/15/16 08:51 ([place] 7.5-325 Mg) 1 tab Q4H PRN PO 07/15/16 08:00 ([place] 10-325 Mg) 1 tab Q4H PRN PO 07/15/16 08:00 07/15/16 08:52 Morphine Sulfate 3 mg 3 mg Q3H PRN IV PUSH 07/15/16 08:00 07/15/16 11:10 Pharmacy Profile Note 0 ml @ 0 mls/hr UNSCH OTHER 07/15/16 12:15 Piperacillin Sod/ Tazobactam Sod 50 ml @ 100 mls/hr Q6H IV 07/15/16 14:00 (Vancomycin Inj/ NS 250 ml Inj) 250 ml @ 250 mls/hr Q8H IV 07/15/16 15:00 Miscellaneous Information SPECIFIC LAB TO BE IAN... ONCE ONCE XX 07/16/16 14:45 07/16/16 14:46 Physical Exam Vital Signs Vital Signs Date Time Temp Pulse Resp B/P Pulse Ox O2 Delivery O2 Flow Rate FiO2 07/15/16 08:18 98.6 92 18 124/63 99 I/O 07/14/16 07/14/16 07/15/16 08:00 16:00 00:00 Intake Total 120 ml Output Total 750 ml Balance -630 ml Assessment & Plan Problem List: (1) Schizoaffective disorder, bipolar type Assessment & Plan: Please refer to assessment and plan in psychiatric consult on 07/14/2016 ICD Code: F25.0 Assessment & Plan Estimated LOS: Dariel Baron MD Jul 15, 2016 15:40
[2016-07-15] MEDS ORDERED: Post-op Orders (for Pharmacy) MISC XX ONE (17:00)
[2016-07-15] MEDS ORDERED: ACETAMINOPHEN/HYDROcodone 325 MG/10 MG TAB PO PRN (17:00)
[2016-07-15] MEDS ORDERED: ONDANSETRON HCL 4 MG/2 ML VIAL IVP PRN (17:00)
--- NOTE | 2016-07-15 17:11 | HHI.PR ---
cc: Mil Hoyt MD Immediate Post Op Note Procedure Date: Jul 15, 2016 Pre Op Diagnosis: Unstable open left elbow dislocation with radial head fracture Post Op Diagnosis: Surgeon: Mil Hoyt Optical Effects Line Up Person(s): Pradeep Holland PA-C The surgical procedure was assisted by my physician assistant librarian. My P.A. presence was necessary throughout this case for the manipulation and positioning of the surgical extremity. My P.A. was assisting me throughout the duration of this procedure. The skill set of a physician assistant librarian was medically necessary to complete this procedure. During the surgical case the neurodiagnostic technician was working at the back table and the physician assistant librarian was directly assisting me. Procedure: Irrigation and debridement of open left elbow fracture dislocation Open treatment of left elbow dislocation Radial head replacement arthroplasty Revision of external fixation Primary repair of lateral ulnar collateral ligament Primary repair of ulnar collateral ligament with fascial reinforcement Findings: Probable Ulnar nerve transection at cubital tunnel Estimated blood loss: 100 mL Anesthesia: General Drains: None Patient to: PACU Patient Condition: Good Mil Hoyt MD Jul 15, 2016 17:11
--- NOTE | 2016-07-15 17:18 | RADRPT ---
EXAM DATE/TIME: 07/15/2016 16:43 [place] COMPARISON: No previous studies available for comparison. INDICATIONS : ORIF left elbow. MEDICAL HISTORY : Non-responsive SURGICAL HISTORY : Non-responsive ENCOUNTER: Subsequent ACUITY: 4 - 6 days PAIN SCORE: Non-responsive. LOCATION: Left upper extremity FINDINGS: Radial head prosthesis is identified and appears to be in good position. External fixation device is also noted. CONCLUSION: Status post placement of radial head prosthesis which appears to be adequate in position. Valente Hong MD on July 15, 2016 at 17:08 Board Certified Radiologist. This report was verified electronically.
[2016-07-15] MEDS ORDERED: fentaNYL CITRATE 250 MCG/5 ML AMP ONE (17:41)
[2016-07-15] MEDS ORDERED: DO NOT ADM ANY ANTICOAGULANT DRUGS XX PRN (18:30)
[2016-07-15] MEDS ORDERED: XARE10TA PO (18:51)
[2016-07-15] MEDS ORDERED: HYDR-3366 PO (18:51)
[2016-07-15] MEDS: PIPERACIL-TAZO 3.375 GM PREMIX 50 ML IV SCH ×2 (19:30→20:00)
[2016-07-15 20:00] VITALS: BP 149/97; PULSE 108; PULSE 109; RESP 16; TEMP 98.7; O2SAT 99
[2016-07-15] MEDS ORDERED: *morphine SULFATE 8 MG/ML PERIprocedure ONLY ONE ×2 (20:06→21:02)
[2016-07-15] MEDS ORDERED: VANCOMYCIN INJ 1,000 MG in SODIUM CHLOR 0.9% 250 ML INJ 250 ML IV SCH (21:00)
[2016-07-15 23:00] VITALS: BP 150/94; PULSE 104; RESP 17; TEMP 98; O2SAT 99
[2016-07-16] MEDS ORDERED: ceFAZolin 2 GM PREMIX 50 ML IV SCH
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
[2016-07-16] MEDS ORDERED: PHARMACY ORDERED LAB XX ONE (14:45)
== END 2016-07-15 23:30 | DRG 876 ==
LOC: H4EA 17:56 → N07B 07-15 17:59 → N05B 07-15 18:50 → N07B 07-15 18:50
PROVIDERS: ADMIT Psychiatry & Neurology Psychiatry; ATTEND Psychiatry & Neurology Psychiatry
PROC: 0PHJ05Z Insertion of External Fixation Device into Left Radius, Open Approach (ICD-10-PCS; 2016-07-15)
PROC: 0MQ40ZZ Repair Left Elbow Bursa and Ligament, Open Approach (ICD-10-PCS; 2016-07-15)
PROC: 0PRJ0JZ Replacement of Left Radius with Synthetic Substitute, Open Approach (ICD-10-PCS; principal; 2016-07-15 14:49)
PROC: 0JBH0ZZ Excision of Left Lower Arm Subcutaneous Tissue and Fascia, Open Approach (ICD-10-PCS; 2016-07-15 14:49)
DX: F25.0 Schizoaffective disorder, bipolar type (principal); S72.141A Displaced intertrochanteric fracture of right femur, initial encounter for closed fracture; S22.080A Wedge compression fracture of T11-T12 vertebra, initial encounter for closed fracture; S72.391A Other fracture of shaft of right femur, initial encounter for closed fracture; S52.122 Displaced fracture of head of left radius; D62 Acute posthemorrhagic anemia; S32.19XA Other fracture of sacrum, initial encounter for closed fracture; S36.039A Unspecified laceration of spleen, initial encounter; S65.012A Laceration of ulnar artery at wrist and hand level of left arm, initial encounter; S32.592A Other specified fracture of left pubis, initial encounter for closed fracture; S82.002C Unspecified fracture of left patella, initial encounter for open fracture type IIIA, IIIB, or IIIC; S82.001A Unspecified fracture of right patella, initial encounter for closed fracture; D69.6 Thrombocytopenia, unspecified; S53.442A Ulnar collateral ligament sprain of left elbow, initial encounter; E03.9 Hypothyroidism, unspecified; R05 Cough; R00.0 Tachycardia, unspecified; R50.9 Fever, unspecified; S62.512A Displaced fracture of proximal phalanx of left thumb, initial encounter for closed fracture; S00.91XA Abrasion of unspecified part of head, initial encounter; Z81.8 Family history of other mental and behavioral disorders; Y93.89 Activity, other specified; Y92.85 Railroad track as the place of occurrence of the external cause; Z91.14 Patient's other noncompliance with medication regimen
CPT/HCPCS: 71010; 73070; 76000; 80048; 80053; 80061; 83036; 83735; 84100; 85025; 87040; 87086; C1713; C1776; J0690; J1100; J1580; J2270; J2370; J2405; J2543; J3010; J3370; J7040; J7050

== ENCOUNTER 2016-07-15 23:30 | Inpatient (IN) | payer BC ==
[~2016-07-15 23:30] MED LIST changes: +DO NOT ADM ANY ANTICOAGULANT DRUGS XX PRN; +HYDR-3366 PO; +XARE10TA PO
[2016-07-16] VITALS (8 sets, daily range): BP systolic 112–155; BP diastolic 75–86; PULSE 94–103; RESP 18–20; TEMP 97.4–99.3; O2SAT 96–100
[2016-07-16] MEDS ORDERED: FAMOTIDINE 20 MG/2 ML VIAL IV PRN (03:15)
[2016-07-16] MEDS ORDERED: DEXAMETHASONE SOD PHOS 4 MG/ML VIAL IV PRN (03:15)
[2016-07-16] MEDS ORDERED: ALUMINUM/MAGNESIUM/SIMETH 30 ML CUP PO PRN (04:30)
[2016-07-16] MEDS ORDERED: ACETAMINOPHEN 325 MG TAB PO PRN (04:30)
[2016-07-16] MEDS ORDERED: LORazepam 1 MG TAB PO PRN (04:30)
[2016-07-16] MEDS ORDERED: LORazepam 2 MG/ML VIAL IM PRN (04:30)
[2016-07-16] MEDS ORDERED: SODIUM CHLORIDE FLUSH PRN IVF (04:30)
[2016-07-16] MEDS ORDERED: MORPHINE SULFATE 4 MG/ML INJ IV PUSH PRN (05:00)
[2016-07-16] MEDS ORDERED: ONDANSETRON HCL 4 MG/2 ML VIAL IV PUSH PRN (05:00)
[2016-07-16] MEDS: ceFAZolin 2 GM PREMIX 50 ML IV SCH ×3 (05:02→22:05)
--- NOTE | 2016-07-16 06:55 | PD.ORT.PN ---
Subjective Subjective Remarks Postoperative day #1 status post left elbow ligament reconstruction, radial head replacement, revision of external fixation, and open treatment of elbow dislocation Patient also has pelvic fractures, bilateral patella fractures, and right femur fracture Patient comfortable. Objective Vitals Vital Signs Date Time Temp Pulse Resp B/P Pulse Ox O2 Delivery O2 Flow Rate FiO2 07/16/16 04:00 97.4 102 20 155/86 100 07/16/16 00:00 97.6 103 18 144/85 98 07/16/16 00:00 97.6 103 18 144/85 98 Objective Remarks Patient is awake. Examination of left arm reveals pin sites are clean and dry. Good capillary refill in his fingers. He appears to have intact sensation in radial and median nerve distributions. Patient in bilateral knee immobilizers. Assessment & Plan Assessment and Plan Postop day 1 status post complex repair of left elbow fracture dislocation Bilateral patella fractures continue knee immobilizers Right femur fracture status post IM nail Pelvic fractures --plan nonoperative treatment Mil Gentile MD Jul 16, 2016 06:55
[2016-07-16] MEDS: ZIPRASIDONE HCL 80 MG CAP PO SCH ×2 (08:28→22:02)
[2016-07-16] MEDS: OXcarbazepine 600 MG TAB PO SCH ×3 (08:29→17:21)
[2016-07-16] MEDS: SODIUM CHLORIDE FLUSH BID IVF SCH ×2 (08:29→22:03)
[2016-07-16] MEDS: ACETAMINOPHEN/HYDROcodone 325 MG/10 MG TAB PO PRN ×3 (08:30→22:03)
[2016-07-16] MEDS: NICOTINE 21 MG/24 HR PATCH T-DERMAL SCH (08:30)
--- NOTE | 2016-07-16 09:41 | PD.ORT.PN ---
Subjective Post Op Day #: 4 and 1 Subjective Remarks pain tolerable. very depressed and states he is "out of control". Objective Vitals Vital Signs Date Time Temp Pulse Resp B/P Pulse Ox O2 Delivery O2 Flow Rate FiO2 07/16/16 08:00 98.7 95 20 130/83 98 07/16/16 04:00 97.4 102 20 155/86 100 07/16/16 00:00 97.6 103 18 144/85 98 07/16/16 00:00 97.6 103 18 144/85 98 Objective Remarks Patient is awake. Examination of left arm reveals pin sites are clean and dry. Good capillary refill in his fingers. He appears to have intact sensation in radial and median nerve distributions. Patient in bilateral knee immobilizers. dressings B LE are c/d/i edema neg homans nvi Assessment & Plan Ortho Post Op Day #: 4 Problem List: Assessment and Plan POD#4 I&D with ORIF L open Patella fx, R long intramedullary femoral nail for intertroch and fem shaft fxs, I&D L Hand with closure of traumatic wound, I&D L elbow with application of ex-fix Postop day 1 status post complex repair of left elbow fracture dislocation Bilateral patella fractures continue knee immobilizers Right femur fracture status post IM nail Pelvic fractures --plan nonoperative treatment NWB BLE dvt prophylaxis med management psych management Sam Sahni Jul 16, 2016 09:41
[2016-07-16] MEDS ORDERED: VANCOMYCIN INJ 1,000 MG in SODIUM CHLOR 0.9% 250 ML INJ 250 ML IV SCH (11:00)
[2016-07-16] MEDS: PIPERACIL-TAZO 3.375 GM PREMIX 50 ML IV SCH ×2 (11:22→17:22)
--- NOTE | 2016-07-16 15:37 | HHI.PYPN ---
Subjective Remarks Patient was visited today for reevaluation, he was found deeply asleep, sedated , non-arousable verbally. A couple of attempts were made to speak with the patient, but he could not cooperate fully with the evaluation. He did recognize me from yesterday, he did say that he wants to and he doesn't want to speak with his "I cannot trust her...". As per sitter and nurse in charge the patient has verbalized today in different occasions that he wants to and he wants to be killed. Review of Systems ROS Limitations: Uncooperative Other Patient does not have any somatic complaints today Objective Alert: Yes [place]: Person Mood: Depressed Affect: Restricted, Flat Memory Intact: Immediate Hallucinations: Other (not assessed due to lack of cooperation) Delusions: No Delusion Type: Other (not assessed due to level of sedation) Suicidal: Ideation (he endorses suicidal ideation, no plan) Homicidal: Ideation (no as assessed due to level of sedation) Insight/Judgement Poor Vitals/IOs Vital Signs Date Time Temp Pulse Resp B/P Pulse Ox O2 Delivery O2 Flow Rate FiO2 07/16/16 12:00 99.0 100 20 137/82 98 07/16/16 11:48 Nasal Cannula 2.00 Assessment & Plan Problem List: (1) Schizoaffective disorder, bipolar type Assessment & Plan: Patient is sedated, poorly cooperative, continued to endorse suicidal ideation, no plan. Due to level of sedation cognition and thought process could not be fully assess. We'll continue Geodon 80 mg twice a day. Once patient is medically stable and was he doesn't need any for the surgical intervention he can be transferred to psychiatry. We will follow-up. ICD Code: F25.0 Assessment & Plan Estimated LOS: days Justification for Cont. Inpt. Patient needs psychiatric hospitalization was medically stable. Dariel Sanford MD Jul 16, 2016 15:37
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
[2016-07-16 16:40] LABS: AUTOMATED NEUTROPHIL # 2.6 TH/MM3 (1.8-7.7); BASOPHIL % 0.7 % (0.0-2.0); EOSINOPHIL # 0.1 TH/MM3 (0-0.4); HEMATOCRIT 22.5 % (39.0-51.0); HEMO FLAGS DIFF FINAL; LYMPH % 18.8 % (9.0-44.0); LYMPHOCYTE # 0.8 TH/MM3 (1.0-4.8); MEAN CELL VOLUME 88.4 FL (80.0-100.0); MEAN CORPUSCULAR HEMOGLOBIN 30.8 PG (27.0-34.0); MEAN CORPUSCULAR HGB CONC 34.9 % (32.0-36.0); MONO % 14.1 % (0.0-8.0); NEUT % 64.4 % (16.0-70.0); PLATELET COUNT 137 TH/MM3 (150-450); RED BLOOD COUNT 2.55 MIL/MM3 (4.50-5.90); WHITE BLOOD COUNT 4.1 TH/MM3 (4.0-11.0)
[2016-07-16 17:22] LABS: ALKALINE PHOSPHATASE 133 U/L (45-117); ALT (GPT) 28 U/L (12-78); ANION GAP 7 MEQ/L (5-15); AST (GOT) 43 U/L (15-37); BICARBONATE 28.7 MEQ/L (21.0-32.0); BLOOD UREA NITROGEN 8 MG/DL (7-18); CHLORIDE 107 MEQ/L (98-107); GLOMERULAR FILTRATION RATE 130 ML/MIN (>89); POTASSIUM 3.8 MEQ/L (3.5-5.1); SODIUM (NA) 143 MEQ/L (136-145); TOTAL BILIRUBIN ADULT 0.8 MG/DL (0.2-1.0)
[2016-07-17] VITALS: BP 116/77; PULSE 94; RESP 20; TEMP 98.6; O2SAT 92
[2016-07-17] MEDS: PIPERACIL-TAZO 3.375 GM PREMIX 50 ML IV SCH ×4 (00:13→17:26)
[2016-07-17] MEDS: ceFAZolin 2 GM PREMIX 50 ML IV SCH ×3 (04:28→22:00)
[2016-07-17 06:06] VITALS: BP 131/79; PULSE 90; RESP 20; TEMP 97.7; O2SAT 95
[2016-07-17 06:51] LABS: AUTOMATED NEUTROPHIL # 2.8 TH/MM3 (1.8-7.7); EOSINOPHIL # 0.2 TH/MM3 (0-0.4); EOSINOPHIL % 3.6 % (0.0-4.0); HEMATOCRIT 23.5 % (39.0-51.0); HEMO FLAGS DIFF FINAL; LYMPH % 17.5 % (9.0-44.0); LYMPHOCYTE # 0.8 TH/MM3 (1.0-4.8); MEAN CELL VOLUME 88.3 FL (80.0-100.0); MEAN CORPUSCULAR HEMOGLOBIN 30.4 PG (27.0-34.0); MEAN CORPUSCULAR HGB CONC 34.5 % (32.0-36.0); MONO % 12.7 % (0.0-8.0); NEUT % 65.2 % (16.0-70.0); PLATELET COUNT 161 TH/MM3 (150-450); RED BLOOD COUNT 2.67 MIL/MM3 (4.50-5.90); RED CELL DISTRIBUTION WIDTH 13.9 % (11.6-17.2); WHITE BLOOD COUNT 4.3 TH/MM3 (4.0-11.0)
--- NOTE | 2016-07-17 07:06 | PD.ORT.PN ---
Subjective Subjective Remarks Resting comfortably with no new complaints Objective Vitals Vital Signs Date Time Temp Pulse Resp B/P Pulse Ox O2 Delivery O2 Flow Rate FiO2 07/17/16 06:06 97.7 90 20 131/79 95 07/17/16 00:00 98.6 94 20 116/77 92 07/16/16 21:39 98 07/16/16 20:00 98.3 94 20 112/75 96 07/16/16 16:00 99.3 94 20 124/81 99 07/16/16 12:00 99.0 100 20 137/82 98 07/16/16 11:48 97 Nasal Cannula 2.00 07/16/16 08:00 98.7 95 20 130/83 98 I/O 07/16/16 07/16/16 07/16/16 07/17/16 07/17/16 07/17/16 07:00 15:00 23:00 07:00 15:00 23:00 Intake Total 1200 ml 720 ml 1645 ml Output Total 5150 ml 825 ml 2000 ml Balance -3950 ml -105 ml -355 ml Intake Oral 1200 ml 720 ml 1400 ml IV Total 245 ml Output Urine Total 5150 ml 825 ml 2000 ml # Bowel Movements 0 0 Result Diagram: 07/17/16 0619 07/16/16 1603 Objective Remarks Patient is awake. Examination of left arm reveals pin sites are clean and dry. Good capillary refill in his fingers. He is able to extend his fingers slightly and also flex his fingers. He states that he has sensation over the radial ulnar and median nerve distributions Patient in bilateral knee immobilizers. dressings B LE are c/d/i edema neg homans nvi Assessment & Plan Assessment and Plan POD#5 I&D with ORIF L open Patella fx, R long intramedullary femoral nail for intertroch and fem shaft fxs, I&D L Hand with closure of traumatic wound, I&D L elbow with application of ex-fix Postop day 2 status post complex repair of left elbow fracture dislocation with hinged external fixator Begin daily dressing changes and pin care twice a day Nonweightbearing left upper extremity Right patella fracture to be treated nonoperatively with knee immobilizer and no range of motion of knee -HV Bilateral patella fractures continue knee immobilizers Right femur fracture status post IM nail Pelvic fractures --plan nonoperative treatment NWB BLE dvt prophylaxis med management psych management ALANNA MOSS PA-C Jul 17, 2016 07:06
[2016-07-17 07:23] LABS: ALKALINE PHOSPHATASE 151 U/L (45-117); ALT (GPT) 26 U/L (12-78); ANION GAP 8 MEQ/L (5-15); AST (GOT) 29 U/L (15-37); BICARBONATE 27.8 MEQ/L (21.0-32.0); BLOOD UREA NITROGEN 9 MG/DL (7-18); CHLORIDE 105 MEQ/L (98-107); GLOMERULAR FILTRATION RATE 120 ML/MIN (>89); MAGNESIUM 2.1 MG/DL (1.5-2.5); POTASSIUM 3.3 MEQ/L (3.5-5.1); SODIUM (NA) 141 MEQ/L (136-145); TOTAL BILIRUBIN ADULT 0.9 MG/DL (0.2-1.0)
[2016-07-17 08:12] VITALS: BP 137/89; PULSE 98; RESP 16; TEMP 98.5; O2SAT 95
[2016-07-17] MEDS: ZIPRASIDONE HCL 80 MG CAP PO SCH ×2 (08:55→21:00)
[2016-07-17] MEDS: REMOVE OLD NICOTINE PATCH T-DERMAL SCH (08:55)
[2016-07-17] MEDS: NICOTINE 21 MG/24 HR PATCH T-DERMAL SCH (08:55)
[2016-07-17] MEDS: OXcarbazepine 600 MG TAB PO SCH ×3 (08:55→17:26)
[2016-07-17] MEDS: SODIUM CHLORIDE FLUSH BID IVF SCH ×2 (08:56→21:00)
[2016-07-17] MEDS ORDERED: POTASSIUM CHLORIDE 10 MEQ CONTROLLED RELEASE TAB PO ONE (09:30)
[2016-07-17 11:38] VITALS: BP 144/94; PULSE 101; RESP 18; TEMP 99; O2SAT 95
[2016-07-17 16:16] VITALS: BP 136/83; PULSE 104; RESP 18; TEMP 99.1; O2SAT 94
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
[2016-07-17] MEDS: PANTOPRAZOLE SOD 40 MG DELAYED RELEASE TAB PO SCH (18:30)
--- NOTE | 2016-07-17 18:47 | RADRPT ---
EXAM DATE/TIME: 07/17/2016 18:30 [facility] COMPARISON: CHEST SINGLE AP, July 15, 2016, 9:36. INDICATIONS : Patient states short of breath. MEDICAL HISTORY : None. SURGICAL HISTORY : None. ENCOUNTER: Subsequent ACUITY: 4 - 6 days PAIN SCORE: 0/10 LOCATION: Bilateral chest FINDINGS: A single view of the chest demonstrates the lungs to be symmetrically aerated without evidence of mas s, infiltrate or effusion. The cardiomediastinal contours are unremarkable. Osseous structures are intact. CONCLUSION: No acute disease. Julius Barillas MD FACR on July 17, 2016 at 18:45 Board Certified Radiologist. This report was verified electronically.
[2016-07-17] MEDS: DOCUSATE SODIUM 50 MG/SENNA 8.6 MG TAB PO SCH (18:54)
[2016-07-17] MEDS: NS + KCL 40 MEQ INJ 1,000 ML IV SCH (18:55)
[2016-07-17 20:00] VITALS: BP 120/81; PULSE 104; RESP 20; TEMP 98.8; O2SAT 96
[2016-07-18] VITALS: BP 136/85; PULSE 94; RESP 20; TEMP 97.6; O2SAT 96
[2016-07-18] MEDS: PIPERACIL-TAZO 3.375 GM PREMIX 50 ML IV SCH ×4 (00:37→17:28)
[2016-07-18] MEDS: ACETAMINOPHEN/HYDROcodone 325 MG/10 MG TAB PO PRN (05:34)
[2016-07-18] MEDS: NS + KCL 40 MEQ INJ 1,000 ML IV SCH ×2 (05:38→14:30)
[2016-07-18 05:54] VITALS: BP 132/85; PULSE 92; RESP 20; TEMP 98.9; O2SAT 94
[2016-07-18 06:58] VITALS: BP 116/73; PULSE 92; RESP 20; TEMP 97.6; O2SAT 93
[2016-07-18] MEDS: PANTOPRAZOLE SOD 40 MG DELAYED RELEASE TAB PO SCH ×2 (09:00→09:23)
[2016-07-18] MEDS: NICOTINE 21 MG/24 HR PATCH T-DERMAL SCH (09:00)
[2016-07-18] MEDS: ZIPRASIDONE HCL 80 MG CAP PO SCH ×3 (09:00→22:40)
[2016-07-18] MEDS: DOCUSATE SODIUM 50 MG/SENNA 8.6 MG TAB PO SCH ×2 (09:00→09:22)
[2016-07-18] MEDS: REMOVE OLD NICOTINE PATCH T-DERMAL SCH (09:00)
[2016-07-18] MEDS: OXcarbazepine 600 MG TAB PO SCH ×4 (09:00→17:28)
[2016-07-18] MEDS: SODIUM CHLORIDE FLUSH BID IVF SCH ×2 (09:23→21:00)
--- NOTE | 2016-07-18 10:04 | PD.ORT.PN ---
Subjective Subjective Remarks POD 3 s/p left elbow ligament reconstruction with radial head replacement and revision exfix POD 6 s/p IMN right femur and ORIF left patella by Dr Perry s/p right patella fx doing well. flat affect. states no pain. Objective Vitals Vital Signs Date Time Temp Pulse Resp B/P Pulse Ox O2 Delivery O2 Flow Rate FiO2 07/18/16 06:58 97.6 92 20 116/73 93 07/18/16 05:54 98.9 92 20 132/85 94 07/18/16 00:00 97.6 94 20 136/85 96 07/17/16 20:00 98.8 104 20 120/81 96 07/17/16 16:16 99.1 104 18 136/83 94 07/17/16 11:38 99.0 101 18 144/94 95 I/O 07/17/16 07/17/16 07/17/16 07/18/16 07/18/16 07/18/16 07:00 15:00 23:00 07:00 15:00 23:00 Intake Total 1645 ml 1440 ml 870 ml Output Total 2000 ml 1750 ml 1950 ml 1400 ml Balance -355 ml -310 ml -1080 ml -1400 ml Intake Oral 1400 ml 1440 ml 720 ml IV Total 245 ml 150 ml Output Urine Total 2000 ml 1750 ml 1950 ml 1400 ml # Bowel Movements 0 0 0 Result Diagram: 07/17/1661807/17/16618 Objective Remarks LUE: Patient is awake. Examination of left arm reveals pin sites are clean and dry. Good capillary refill in his fingers. He is able to extend his fingers slightly and also flex his fingers. + + sensation over the radial ulnar and median nerve distributions BLE: Patient in bilateral knee immobilizers. dressings B LE are c/d/i edema neg homans nvi Assessment & Plan Assessment and Plan 1)POD#6 I&D with ORIF L open Patella fx, R long intramedullary femoral nail for intertroch and fem shaft fxs, I&D L Hand with closure of traumatic wound, I&D L elbow with application of ex-fix 2) POD 3 status post complex repair of left elbow fracture dislocation with hinged external fixator Begin daily dressing changes and pin care twice a day Nonweightbearing left upper extremity 3) Right patella fracture to be treated nonoperatively with knee immobilizer and no range of motion of knee -HV Bilateral patella fractures continue knee immobilizers Right femur fracture status post IM nail Pelvic fractures --plan nonoperative treatment NWB BLE dvt prophylaxis med management psych management Omer Griffiths Jul 18, 2016 10:04
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
[2016-07-18 12:23] VITALS: BP 136/86; PULSE 95; RESP 20; TEMP 98.5; O2SAT 96
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
[2016-07-18 15:32] LABS: FREE T3 0.84 PG/ML (2.18-3.98); FREE T4 0.87 NG/DL (0.76-1.46)
[2016-07-18 15:50] VITALS: BP 133/84; PULSE 90; RESP 20; TEMP 97.2; O2SAT 97
[2016-07-18] MEDS: BENZOCAINE 6 MG/MENTHOL 10 MG LOZENGE BUCCAL PRN (17:28)
[2016-07-18 20:00] VITALS: BP_SYST 118; BP_SYST 151; BP_DIAS 79; BP_DIAS 87; PULSE 69; PULSE 93; RESP 20; TEMP 97.2; TEMP 98.6; O2SAT 97; O2SAT 98
[2016-07-18] MEDS: LITHIUM CARBONATE 300 MG TAB PO SCH (22:41)
[2016-07-19] VITALS (7 sets, daily range): BP systolic 115–140; BP diastolic 67–91; PULSE 65–108; RESP 16–20; TEMP 96.8–99.2; O2SAT 95–99
[2016-07-19] MEDS: PIPERACIL-TAZO 3.375 GM PREMIX 50 ML IV SCH ×5 (00:45→23:27)
[2016-07-19] MEDS: NS + KCL 40 MEQ INJ 1,000 ML IV SCH ×3 (00:46→21:59)
[2016-07-19] MEDS: BENZOCAINE 6 MG/MENTHOL 10 MG LOZENGE BUCCAL PRN (06:33)
[2016-07-19] MEDS ORDERED: LEVOTHYROXINE SODIUM 150 MCG TAB PO ONE (08:00)
--- NOTE | 2016-07-19 08:51 | HHI.PR ---
Subjective Remarks Not dominique anymore. Says pain is controlled by meds. No n/v/d/c. Denies cp, sob. Objective Vitals Vital Signs Date Time Temp Pulse Resp B/P Pulse Ox O2 Delivery O2 Flow Rate FiO2 07/19/16 06:49 18 07/19/16 04:00 97.5 83 16 126/79 97 07/19/16 00:00 98.0 89 16 122/72 95 07/18/16 20:00 98.6 93 20 118/79 97 07/18/16 15:50 97.2 90 20 133/84 97 07/18/16 12:23 98.5 95 20 136/86 96 I/O 07/18/16 07/18/16 07/18/16 07/19/16 07/19/16 07/19/16 07:00 15:00 23:00 07:00 15:00 23:00 Intake Total 831 ml 1250 ml Output Total 1400 ml 1050 ml 450 ml Balance -1400 ml -219 ml 800 ml Intake Oral 360 ml 240 ml IV Total 471 ml 1010 ml Output Urine Total 1400 ml 1050 ml 450 ml # Bowel Movements 0 0 0 Result Diagram: 07/17/16 0619 07/17/16 0619 Imaging Last Impressions Chest X-Ray 07/17/16 0000 Signed Impressions: Service Date/Time: July 18:30 - CONCLUSION: No acute disease. Julius Barillas MD FACR Objective Remarks GENERAL: This is a well-nourished, well-developed patient SKIN: Multiple lacerations and excoriated areas throughout entire body including face bilateral pressure most bilateral lower extremities. HEAD: Atraumatic. Normocephalic. No temporal or scalp tenderness. EYES: Extraocular motions intact. No scleral icterus. No injection or drainage. ENT: Nose without bleeding, purulent drainage or septal hematoma. Throat without erythema, tonsillar hypertrophy or exudate. Uvula midline. Airway patent. NECK: Trachea midline. No JVD or lymphadenopathy. Supple, nontender, no meningeal signs. CARDIOVASCULAR: Regular rate and rhythm without murmurs, gallops, or rubs. RESPIRATORY: Clear to auscultation. Breath sounds equal bilaterally. No wheezes , rales, or rhonchi. GASTROINTESTINAL: Abdomen soft, non-tender, nondistended. No guarding. MUSCULOSKELETAL: Bilateral lower extremity immobilizing devices present. Patient noted to have 1+to 2+ bilateral lower extremity pitting edema able to wiggle toes bilaterally. Left upper extremity in sling with external fixation device present able to wiggle fingers bilaterally NEUROLOGICAL: Awake and alert.difficult to assess motor strength due to multiple fractures, limited by pain. Sensory without gross deficits. Soft speech. A/P Problem List: (1) Suicide attempt ICD Code: T14.91 Status: Acute (2) Schizoaffective disorder, bipolar type ICD Code: F25.0 Status: Acute (3) HCAP (healthcare-associated pneumonia) ICD Code: J18.9 Status: Acute (4) Fever ICD Code: R50.9 Status: Acute (5) T12 vertebral fracture ICD Code: S22.089A Status: Acute (6) Multiple fractures ICD Code: T14.8 Status: Acute (7) Sepsis ICD Code: A41.9 Status: Acute Assessment and Plan Suicide attempt This a 50-year-old gentleman with a past medical history which includes hypothyroidism, bipolar and schizophrenia. Patient is status post trauma alert on 07/12/2016 secondary to suicide attempt patient jumped off a bridge [place] railroad tracks. Patient sustained multiple fractures has been taken to the OR initially was in intensive care unit and intubated for airway protection as well as pain management. Patient was extubated 07/13/2016 and we have been consulted for assistance with medical management. Patient noticed to have a weak/soft voice. Patient does report occasional cough nonproductive but does sound moist in nature. Patient reports he is unsure how long the cough has been going on. Patient was noted to have a temperature of 102.0 07/14/2016 also noted to be tachycardic. Psychiatric consulted. Follow up recommendations. Schizoaffective disorder, bipolar type Management as per psychiatric. Continue Geodon as per psychiatry. Monitor EKG to monitor QT. Patient will need inpatient psychiatric admission. HCAP (healthcare-associated pneumonia) Yes x-ray obtained on 07/17/16 shows left-sided pleural effusion and basilar airspace atelectasis versus consolidation. Continue to treat with IV vancomycin and IV Zosyn, follow-up blood cultures, urine culture negative 48 hours. Continue supplemental oxygen, will add DuoNeb's as needed. Continue supplemental oxygen to keep on oxygen saturation more than 92%. Fever Patient had a fever of 102.0 associated with a cough and tachycardia. Likely sepsis syndrome due to H Area Chest x-ray obtained today shows left-sided pleural effusion and basilar airspace atelectasis versus consolidation. Add IS Continue empiric treatment with IV vancomycin and IV Zosyn. Blood cultures obtained with the patient was in the med psych unit are negative to date 4, urine culture shows no growth in 48 hours. Sore throat. Give lozengens T12 vertebral fracture Patient be followed by neurosurgery, no surgical indication this time, continue TLSO brace when patient is able to get out of bed. Multiple fractures Multiple orthopedic injuries s/p right femur IMN s/p exfix left elbow s/p ORIF left patella right patella fx nonop pelvic fxs Status post irrigation and debridement of the left elbow, with revision of external fixator of the left elbow. Replacement of left radial head, ligamentous reconstruction. Continue pain control and management as per orthopedic surgery. Sepsis Patient with a temperature of 102.0, tachycardia and CBC with leukocytosis of 14,000 on admission. On IV fluids and continue broad-spectrum IV antibiotics with IV Zosyn IV vancomycin. Hypothyroidism: Resume synthroid. Hypokalemia, likely secondary to poor oral intake, replace and monitor. GI prophylaxis: Cont. proton pump inhibitor DVT prophylaxis: SCDs, chemoprophylaxis as per orthopedic surgery. Patient currently on not on any chemoprophylaxis. Discharge Planning Continue to monitor in the medical floor. Problem Qualifiers (1) T12 vertebral fracture: Qualified Code: S22.089D - Closed fracture of twelfth thoracic vertebra with routine healing, unspecified fracture morphology, subsequent encounter (2) Sepsis: Qualified Code: A41.9 - Sepsis, due to unspecified organism Shannon Wild MD Jul 19, 2016 08:51
[2016-07-19] MEDS: NICOTINE 21 MG/24 HR PATCH T-DERMAL SCH (09:00)
[2016-07-19] MEDS: REMOVE OLD NICOTINE PATCH T-DERMAL SCH (09:00)
[2016-07-19 09:11] LABS: AUTOMATED NEUTROPHIL # 4.1 TH/MM3 (1.8-7.7); BASOPHIL # 0.1 TH/MM3 (0-0.2); BASOPHIL % 1.1 % (0.0-2.0); EOSINOPHIL # 0.1 TH/MM3 (0-0.4); EOSINOPHIL % 2.3 % (0.0-4.0); HEMATOCRIT 24.9 % (39.0-51.0); HEMO FLAGS DIFF FINAL; LYMPH % 16.1 % (9.0-44.0); LYMPHOCYTE # 0.9 TH/MM3 (1.0-4.8); MEAN CELL VOLUME 87.6 FL (80.0-100.0); MEAN CORPUSCULAR HEMOGLOBIN 30.9 PG (27.0-34.0); MEAN CORPUSCULAR HGB CONC 35.3 % (32.0-36.0); MONO % 10.8 % (0.0-8.0); NEUT % 69.7 % (16.0-70.0); PLATELET COUNT 247 TH/MM3 (150-450); RED BLOOD COUNT 2.84 MIL/MM3 (4.50-5.90); RED CELL DISTRIBUTION WIDTH 14.1 % (11.6-17.2); WHITE BLOOD COUNT 5.9 TH/MM3 (4.0-11.0)
[2016-07-19 09:45] LABS: BICARBONATE 23.6 MEQ/L (21.0-32.0); POTASSIUM 4.2 MEQ/L (3.5-5.1)
[2016-07-19] MEDS: PANTOPRAZOLE SOD 40 MG DELAYED RELEASE TAB PO SCH (10:05)
[2016-07-19] MEDS: DOCUSATE SODIUM 50 MG/SENNA 8.6 MG TAB PO SCH (10:05)
[2016-07-19] MEDS: OXcarbazepine 600 MG TAB PO SCH ×3 (10:05→17:46)
[2016-07-19] MEDS: LITHIUM CARBONATE 300 MG TAB PO SCH ×2 (10:05→21:58)
[2016-07-19] MEDS: SODIUM CHLORIDE FLUSH BID IVF SCH ×2 (10:06→21:00)
[2016-07-19] MEDS: ZIPRASIDONE HCL 80 MG CAP PO SCH ×2 (10:06→21:58)
[2016-07-20 01:00] VITALS: BP 132/76; PULSE 93; RESP 18; TEMP 97; O2SAT 97
[2016-07-20] MEDS: PIPERACIL-TAZO 3.375 GM PREMIX 50 ML IV SCH ×3 (06:00→17:23)
[2016-07-20] MEDS: LEVOTHYROXINE SODIUM 150 MCG TAB PO SCH (06:00)
[2016-07-20 08:04] LABS: BICARBONATE 23.5 MEQ/L (21.0-32.0); POTASSIUM 4.5 MEQ/L (3.5-5.1)
[2016-07-20 08:07] VITALS: BP 129/79; PULSE 74; RESP 17; TEMP 98.2; O2SAT 98
[2016-07-20 08:13] LABS: BASOPHIL # 0.1 TH/MM3 (0-0.2); EOSINOPHIL # 0.2 TH/MM3 (0-0.4); EOSINOPHIL % 3.4 % (0.0-4.0); HEMATOCRIT 26.5 % (39.0-51.0); HEMO FLAGS DIFF FINAL; LYMPH % 16.2 % (9.0-44.0); LYMPHOCYTE # 0.9 TH/MM3 (1.0-4.8); MEAN CELL VOLUME 87.4 FL (80.0-100.0); MEAN CORPUSCULAR HEMOGLOBIN 30.1 PG (27.0-34.0); MEAN CORPUSCULAR HGB CONC 34.5 % (32.0-36.0); MONO % 9.5 % (0.0-8.0); NEUT % 69.9 % (16.0-70.0); PLATELET COUNT 298 TH/MM3 (150-450); RED BLOOD COUNT 3.03 MIL/MM3 (4.50-5.90); RED CELL DISTRIBUTION WIDTH 13.9 % (11.6-17.2); WHITE BLOOD COUNT 5.7 TH/MM3 (4.0-11.0)
[2016-07-20] MEDS: REMOVE OLD NICOTINE PATCH T-DERMAL SCH (09:00)
[2016-07-20] MEDS: DOCUSATE SODIUM 50 MG/SENNA 8.6 MG TAB PO SCH ×2 (09:00→10:23)
[2016-07-20] MEDS: PANTOPRAZOLE SOD 40 MG DELAYED RELEASE TAB PO SCH ×2 (09:00→10:23)
[2016-07-20] MEDS: OXcarbazepine 600 MG TAB PO SCH ×4 (09:00→17:24)
[2016-07-20] MEDS: NICOTINE 21 MG/24 HR PATCH T-DERMAL SCH (09:00)
[2016-07-20] MEDS: ZIPRASIDONE HCL 80 MG CAP PO SCH ×3 (09:00→22:09)
[2016-07-20] MEDS: LITHIUM CARBONATE 300 MG TAB PO SCH ×3 (09:00→22:10)
[2016-07-20] MEDS: NS + KCL 40 MEQ INJ 1,000 ML IV SCH ×3 (10:22→22:13)
[2016-07-20] MEDS: SODIUM CHLORIDE FLUSH BID IVF SCH ×2 (10:24→21:00)
[2016-07-20 12:00] VITALS: BP 128/79; PULSE 79; RESP 18; TEMP 97.7; O2SAT 98
--- NOTE | 2016-07-20 13:56 | HHI.PR ---
Subjective Remarks Patient is refusing taking any meds. When asked why he is telling me he doesn't want to live. He has suicidal ideation. Denies pain . No n/v//c. He is eating. Says he doesn't have any pain . He is refusing taking any pain meds or any other meds. Objective Vitals Vital Signs Date Time Temp Pulse Resp B/P Pulse Ox O2 Delivery O2 Flow Rate FiO2 07/20/16 12:00 97.7 79 18 128/79 98 07/20/16 08:07 98.2 74 17 129/79 98 07/20/16 01:00 97.0 93 18 132/76 97 07/19/16 21:00 99.2 92 18 127/83 97 07/19/16 16:00 96.8 108 20 119/80 99 I/O 07/19/16 07/19/16 07/19/16 07/20/16 07/20/16 07/20/16 07:00 15:00 23:00 07:00 15:00 23:00 Intake Total 1250 ml 240 ml 1200 ml Output Total 3850 ml 300 ml 1250 ml Balance -2600 ml -60 ml -1250 ml 1200 ml Intake Oral 240 ml 240 ml IV Total 1010 ml 1200 ml Output Urine Total 3850 ml 300 ml 1250 ml # Bowel Movements 0 0 Result Diagram: 07/20/16 0719 07/20/16 0719 Imaging Last Impressions Chest X-Ray 07/17/16 0000 Signed Impressions: Service Date/Time: July 18:30 - CONCLUSION: No acute disease. Julius Barillas MD FACR Objective Remarks GENERAL: This is a well-nourished, well-developed patient SKIN: Multiple lacerations and excoriated areas throughout entire body including face bilateral pressure most bilateral lower extremities. HEAD: Atraumatic. Normocephalic. No temporal or scalp tenderness. EYES: Extraocular motions intact. No scleral icterus. No injection or drainage. ENT: Nose without bleeding, purulent drainage or septal hematoma. Throat without erythema, tonsillar hypertrophy or exudate. Uvula midline. Airway patent. NECK: Trachea midline. No JVD or lymphadenopathy. Supple, nontender, no meningeal signs. CARDIOVASCULAR: Regular rate and rhythm without murmurs, gallops, or rubs. RESPIRATORY: Clear to auscultation. Breath sounds equal bilaterally. No wheezes , rales, or rhonchi. GASTROINTESTINAL: Abdomen soft, non-tender, nondistended. No guarding. MUSCULOSKELETAL: Bilateral lower extremity immobilizing devices present. Patient noted to have 1+to 2+ bilateral lower extremity pitting edema able to wiggle toes bilaterally. Left upper extremity in sling with external fixation device present able to wiggle fingers bilaterally NEUROLOGICAL: Awake and alert.difficult to assess motor strength due to multiple fractures, limited by pain. Sensory without gross deficits. Soft speech. A/P Problem List: (1) Suicide attempt ICD Code: T14.91 Status: Acute (2) Schizoaffective disorder, bipolar type ICD Code: F25.0 Status: Acute (3) HCAP (healthcare-associated pneumonia) ICD Code: J18.9 Status: Acute (4) Fever ICD Code: R50.9 Status: Acute (5) T12 vertebral fracture ICD Code: S22.089A Status: Acute (6) Multiple fractures ICD Code: T14.8 Status: Acute (7) Sepsis ICD Code: A41.9 Status: Acute Assessment and Plan Suicide attempt This a 50-year-old gentleman with a past medical history which includes hypothyroidism, bipolar and schizophrenia. Patient is status post trauma alert on 07/12/2016 secondary to suicide attempt patient jumped off a bridge [place] railroad tracks. Patient sustained multiple fractures has been taken to the OR initially was in intensive care unit and intubated for airway protection as well as pain management. Patient was extubated 07/13/2016 and we have been consulted for assistance with medical management. Patient noticed to have a weak/soft voice. Patient does report occasional cough nonproductive but does sound moist in nature. Patient reports he is unsure how long the cough has been going on. Patient was noted to have a temperature of 102.0 07/14/2016 also noted to be tachycardic. Psychiatric consulted. Follow up recommendations. Schizoaffective disorder, bipolar type Management as per psychiatric. Continue Geodon as per psychiatry. Monitor EKG to monitor QT. Patient will need inpatient psychiatric admission. HCAP (healthcare-associated pneumonia) Yes x-ray obtained on 07/17/16 shows left-sided pleural effusion and basilar airspace atelectasis versus consolidation. Continue to treat with IV vancomycin and IV Zosyn, follow-up blood cultures, urine culture negative 48 hours. Continue supplemental oxygen, will add DuoNeb's as needed. Continue supplemental oxygen to keep on oxygen saturation more than 92%. Fever Patient had a fever of 102.0 associated with a cough and tachycardia. Likely sepsis syndrome due to H Area Chest x-ray obtained today shows left-sided pleural effusion and basilar airspace atelectasis versus consolidation. Add IS Continue empiric treatment with IV vancomycin and IV Zosyn. Blood cultures obtained with the patient was in the med psych unit are negative to date 4, urine culture shows no growth in 48 hours. Sore throat. Give lozengens T12 vertebral fracture Patient be followed by neurosurgery, no surgical indication this time, continue TLSO brace when patient is able to get out of bed. Multiple fractures Multiple orthopedic injuries s/p right femur IMN s/p exfix left elbow s/p ORIF left patella right patella fx nonop pelvic fxs Status post irrigation and debridement of the left elbow, with revision of external fixator of the left elbow. Replacement of left radial head, ligamentous reconstruction. Continue pain control and management as per orthopedic surgery. Sepsis Patient with a temperature of 102.0, tachycardia and CBC with leukocytosis of 14,000 on admission. On IV fluids and continue broad-spectrum IV antibiotics with IV Zosyn IV vancomycin. Hypothyroidism: Resume synthroid. Hypokalemia, likely secondary to poor oral intake, replace and monitor. GI prophylaxis: Cont. proton pump inhibitor DVT prophylaxis: SCDs, chemoprophylaxis as per orthopedic surgery. Patient currently on not on any chemoprophylaxis. Discharge Planning DC pending improvement clearance by consultants. Patient is refusing taking any meds, and has suicidal ideation. Reconsult psych Patient is stable medically and cleared by consultants for DC. Patient needs inpatient psych hospitalization. Discussed with the patient, nurse, family at bedside ( ). Problem Qualifiers (1) T12 vertebral fracture: Qualified Code: S22.089D - Closed fracture of twelfth thoracic vertebra with routine healing, unspecified fracture morphology, subsequent encounter (2) Sepsis: Qualified Code: A41.9 - Sepsis, due to unspecified organism Shannon Wild MD Jul 20, 2016 13:56
[2016-07-20] MEDS ORDERED: NICO21DI2 T-DERMAL (14:02)
[2016-07-20] MEDS ORDERED: LITH300T3 PO (14:02)
--- NOTE | 2016-07-20 14:02 | HHI.DCPOC ---
Discharge Care Plan Goals to Promote Your Health * To prevent worsening of your condition and complications * To maintain your health at the optimal level Directions to Meet Your Goals Take your medications as prescribed Follow your dietary instruction Follow activity as directed Keep your appointments as scheduled Take your immunizations and boosters as scheduled If your symptoms worsen call your PCP, if no PCP go to Urgent Care Center or Emergency Room Smoking is Dangerous to Your Health. Avoid second hand smoke Call the 24-hour hour crisis hotline for domestic abuse at Shannon Wild MD Jul 20, 2016 14:02
--- NOTE | 2016-07-20 14:04 | HHI.DS ---
Discharge Summary Admission Date Jul 15, 2016 at 23:30 Admitting Diagnosis (1) Suicide attempt ICD Code: T14.91 (2) Schizoaffective disorder, bipolar type ICD Code: F25.0 (3) HCAP (healthcare-associated pneumonia) ICD Code: J18.9 (4) Fever ICD Code: R50.9 (5) T12 vertebral fracture ICD Code: S22.089A (6) Multiple fractures ICD Code: T14.8 (7) Sepsis ICD Code: A41.9 Brief History - From Admission This a 50-year-old gentleman with a past medical history which includes hypothyroidism, bipolar and schizophrenia. Patient is status post trauma alert on 07/12/2016 secondary to suicide attempt patient jumped off a bridge [place] railroad tracks. Patient sustained multiple fractures has been taken to the OR initially was in intensive care unit and intubated for airway protection as well as pain management. Patient was extubated 07/13/2016 and we have been consulted for assistance with medical management. Pertinent imaging: CT head - left sphenoid fracture - CT maxillofacial no fracture seen CT C-spine - negative CT T spine -20% endplate T12 compression fracture- per neurosurgery nonoperative recommend May be mobilized out of bed with TLSO brace from neurosurgical standpoint. CT L-spine - negative CT chest - negative CT abdomen pelvis - free fluid in pelvis/upper abdomen Left IT/midshaft femoral fracture, left pubic sacral and left patellar fractures Right left proximal radial/ulnar fracture with dislocation Surgical intervention intervention thus far: s/p right femur IMN s/p exfix left elbow s/p ORIF left patella right patella fx nonop pelvic fxs Patient received 4 units PRBCs, 1 FFP and platelets while in the OR. Patient resting in bed able to awake to verbal stimuli offers no specific complaints. Patient noticed to have a weak/soft voice. CBC/BMP: 07/20/16 0719 07/20/16 0719 Significant Findings Laboratory Tests Test 07/18/16 07/19/16 07/20/16 14:40 08:30 07:19 Free Triiodothyronine (T3) 0.84 PG/ML pg/dL (2.18-3.98) Thyroid Stimulating Hormone 13.500 uIU/ML 3rd Gen (0.358-3.740) Red Blood Count 2.84 MIL/MM3 3.03 MIL/MM3 (4.50-5.90) (4.50-5.90) Hemoglobin 8.8 GM/DL 9.1 GM/DL (13.0-17.0) (13.0-17.0) Hematocrit 24.9 % 26.5 % (39.0-51.0) (39.0-51.0) Monocytes (%) (Auto) 10.8 % 9.5 % (0.0-8.0) (0.0-8.0) Lymphocytes # (Auto) 0.9 TH/MM3 0.9 TH/MM3 (1.0-4.8) (1.0-4.8) Calcium Level 8.4 MG/DL 8.4 MG/DL (8.5-10.1) (8.5-10.1) PE at Discharge GENERAL: This is a well-nourished, well-developed patient SKIN: Multiple lacerations and excoriated areas throughout entire body including face bilateral pressure most bilateral lower extremities. HEAD: Atraumatic. Normocephalic. No temporal or scalp tenderness. EYES: Extraocular motions intact. No scleral icterus. No injection or drainage. ENT: Nose without bleeding, purulent drainage or septal hematoma. Throat without erythema, tonsillar hypertrophy or exudate. Uvula midline. Airway patent. NECK: Trachea midline. No JVD or lymphadenopathy. Supple, nontender, no meningeal signs. CARDIOVASCULAR: Regular rate and rhythm without murmurs, gallops, or rubs. RESPIRATORY: Clear to auscultation. Breath sounds equal bilaterally. No wheezes , rales, or rhonchi. GASTROINTESTINAL: Abdomen soft, non-tender, nondistended. No guarding. MUSCULOSKELETAL: Bilateral lower extremity immobilizing devices present. Patient noted to have 1+to 2+ bilateral lower extremity pitting edema able to wiggle toes bilaterally. Left upper extremity in sling with external fixation device present able to wiggle fingers bilaterally NEUROLOGICAL: Awake and alert.difficult to assess motor strength due to multiple fractures, limited by pain. Sensory without gross deficits. Soft speech. Sahnnon Wild MD Jul 20, 2016 14:04
[2016-07-20 16:00] VITALS: BP 119/65; PULSE 90; RESP 20; TEMP 98.7; O2SAT 99
[2016-07-20 20:00] VITALS: BP 138/79; PULSE 80; RESP 20; TEMP 99.1; O2SAT 97
[2016-07-21] VITALS: BP 120/70; PULSE 80; RESP 20; TEMP 98.5; O2SAT 96
[2016-07-21] MEDS: PIPERACIL-TAZO 3.375 GM PREMIX 50 ML IV SCH ×4 (00:04→16:41)
[2016-07-21 04:00] VITALS: BP 128/77; PULSE 52; RESP 20; TEMP 98.8; O2SAT 98
[2016-07-21] MEDS: LEVOTHYROXINE SODIUM 150 MCG TAB PO SCH (06:25)
[2016-07-21 08:00] VITALS: BP 122/58; PULSE 70; RESP 18; TEMP 97.1; O2SAT 96
[2016-07-21 08:16] LABS: AUTOMATED NEUTROPHIL # 4.1 TH/MM3 (1.8-7.7); BASOPHIL # 0.1 TH/MM3 (0-0.2); BASOPHIL % 1.4 % (0.0-2.0); EOSINOPHIL # 0.1 TH/MM3 (0-0.4); EOSINOPHIL % 2.3 % (0.0-4.0); HEMATOCRIT 28.9 % (39.0-51.0); HEMO FLAGS DIFF FINAL; LYMPH % 17.1 % (9.0-44.0); MEAN CELL VOLUME 88.3 FL (80.0-100.0); MEAN CORPUSCULAR HEMOGLOBIN 29.9 PG (27.0-34.0); MEAN CORPUSCULAR HGB CONC 33.9 % (32.0-36.0); MONO % 11.1 % (0.0-8.0); NEUT % 68.1 % (16.0-70.0); PLATELET COUNT 345 TH/MM3 (150-450); RED BLOOD COUNT 3.28 MIL/MM3 (4.50-5.90); RED CELL DISTRIBUTION WIDTH 14.5 % (11.6-17.2); WHITE BLOOD COUNT 6.1 TH/MM3 (4.0-11.0)
[2016-07-21 08:33] LABS: BICARBONATE 23.4 MEQ/L (21.0-32.0); POTASSIUM 4.3 MEQ/L (3.5-5.1)
[2016-07-21] MEDS: REMOVE OLD NICOTINE PATCH T-DERMAL SCH (08:52)
[2016-07-21] MEDS: LITHIUM CARBONATE 300 MG TAB PO SCH ×2 (08:53→20:52)
[2016-07-21] MEDS: DOCUSATE SODIUM 50 MG/SENNA 8.6 MG TAB PO SCH (08:53)
[2016-07-21] MEDS: ZIPRASIDONE HCL 80 MG CAP PO SCH ×2 (08:53→20:52)
[2016-07-21] MEDS: NICOTINE 21 MG/24 HR PATCH T-DERMAL SCH (08:53)
[2016-07-21] MEDS: OXcarbazepine 600 MG TAB PO SCH ×3 (08:53→16:41)
[2016-07-21] MEDS: PANTOPRAZOLE SOD 40 MG DELAYED RELEASE TAB PO SCH (08:53)
[2016-07-21] MEDS: SODIUM CHLORIDE FLUSH BID IVF SCH ×2 (08:54→20:54)
[2016-07-21] MEDS: NS + KCL 40 MEQ INJ 1,000 ML IV SCH ×2 (11:34→21:03)
--- NOTE | 2016-07-21 11:42 | HHI.PR ---
Subjective Remarks Patient is refusing meds on/off. No cp, sob, n/v/d/c. Denies having pain. Objective Vitals Vital Signs Date Time Temp Pulse Resp B/P Pulse Ox O2 Delivery O2 Flow Rate FiO2 07/21/16 08:00 97.1 70 18 122/58 96 07/21/16 04:00 98.8 52 20 128/77 98 07/21/16 00:00 98.5 80 20 120/70 96 07/20/16 20:00 99.1 80 20 138/79 97 07/20/16 16:00 98.7 90 20 119/65 99 07/20/16 12:00 97.7 79 18 128/79 98 I/O 07/20/16 07/20/16 07/20/16 07/21/16 07/21/16 07/21/16 07:00 15:00 23:00 07:00 15:00 23:00 Intake Total 1200 ml 1920 ml 1065 ml Output Total 900 ml 1900 ml 2100 ml Balance 1200 ml -900 ml 20 ml -1035 ml Intake Oral 720 ml IV Total 1200 ml 1200 ml 1065 ml Output Urine Total 900 ml 1900 ml 2100 ml # Bowel Movements 0 Result Diagram: 07/21/16 0716 07/21/16 0716 Imaging Last Impressions Chest X-Ray 07/17/16 0000 Signed Impressions: Service Date/Time: July 18:30 - CONCLUSION: No acute disease. Julius Barillas MD FACR Objective Remarks GENERAL: This is a well-nourished, well-developed patient SKIN: Multiple lacerations and excoriated areas throughout entire body including face bilateral pressure most bilateral lower extremities. HEAD: Atraumatic. Normocephalic. No temporal or scalp tenderness. EYES: Extraocular motions intact. No scleral icterus. No injection or drainage. ENT: Nose without bleeding, purulent drainage or septal hematoma. Throat without erythema, tonsillar hypertrophy or exudate. Uvula midline. Airway patent. NECK: Trachea midline. No JVD or lymphadenopathy. Supple, nontender, no meningeal signs. CARDIOVASCULAR: Regular rate and rhythm without murmurs, gallops, or rubs. RESPIRATORY: Clear to auscultation. Breath sounds equal bilaterally. No wheezes , rales, or rhonchi. GASTROINTESTINAL: Abdomen soft, non-tender, nondistended. No guarding. MUSCULOSKELETAL: Bilateral lower extremity immobilizing devices present. Patient noted to have 1+to 2+ bilateral lower extremity pitting edema able to wiggle toes bilaterally. Left upper extremity in sling with external fixation device present able to wiggle fingers bilaterally NEUROLOGICAL: Awake and alert.difficult to assess motor strength due to multiple fractures, limited by pain. Sensory without gross deficits. Soft speech. A/P Problem List: (1) Suicide attempt ICD Code: T14.91 Status: Acute (2) Schizoaffective disorder, bipolar type ICD Code: F25.0 Status: Acute (3) HCAP (healthcare-associated pneumonia) ICD Code: J18.9 Status: Acute (4) Fever ICD Code: R50.9 Status: Acute (5) T12 vertebral fracture ICD Code: S22.089A Status: Acute (6) Multiple fractures ICD Code: T14.8 Status: Acute (7) Sepsis ICD Code: A41.9 Status: Acute Assessment and Plan Suicide attempt This a 50-year-old gentleman with a past medical history which includes hypothyroidism, bipolar and schizophrenia. Patient is status post trauma alert on 07/12/2016 secondary to suicide attempt patient jumped off a bridge [place] railroad tracks. Patient sustained multiple fractures has been taken to the OR initially was in intensive care unit and intubated for airway protection as well as pain management. Patient was extubated 07/13/2016 and we have been consulted for assistance with medical management. Patient noticed to have a weak/soft voice. Patient does report occasional cough nonproductive but does sound moist in nature. Patient reports he is unsure how long the cough has been going on. Patient was noted to have a temperature of 102.0 07/14/2016 also noted to be tachycardic. Psychiatric consulted. Follow up recommendations. Schizoaffective disorder, bipolar type Management as per psychiatric. Continue Geodon as per psychiatry. Monitor EKG to monitor QT. Patient will need inpatient psychiatric admission. HCAP (healthcare-associated pneumonia) Yes x-ray obtained on 07/17/16 shows left-sided pleural effusion and basilar airspace atelectasis versus consolidation. Continue to treat with IV vancomycin and IV Zosyn, follow-up blood cultures, urine culture negative 48 hours. Continue supplemental oxygen, will add DuoNeb's as needed. Continue supplemental oxygen to keep on oxygen saturation more than 92%. Fever Patient had a fever of 102.0 associated with a cough and tachycardia. Likely sepsis syndrome due to H Area Chest x-ray obtained today shows left-sided pleural effusion and basilar airspace atelectasis versus consolidation. Add IS Continue empiric treatment with IV vancomycin and IV Zosyn. Blood cultures obtained with the patient was in the med psych unit are negative to date 4, urine culture shows no growth in 48 hours. Sore throat. Give lozengens T12 vertebral fracture Patient be followed by neurosurgery, no surgical indication this time, continue TLSO brace when patient is able to get out of bed. Multiple fractures Multiple orthopedic injuries s/p right femur IMN s/p exfix left elbow s/p ORIF left patella right patella fx nonop pelvic fxs Status post irrigation and debridement of the left elbow, with revision of external fixator of the left elbow. Replacement of left radial head, ligamentous reconstruction. Continue pain control and management as per orthopedic surgery. Sepsis Patient with a temperature of 102.0, tachycardia and CBC with leukocytosis of 14,000 on admission. On IV fluids and continue broad-spectrum IV antibiotics with IV Zosyn IV vancomycin. Hypothyroidism: Resume synthroid. Hypokalemia, likely secondary to poor oral intake, replace and monitor. GI prophylaxis: Cont. proton pump inhibitor DVT prophylaxis: SCDs, chemoprophylaxis as per orthopedic surgery. Patient currently on not on any chemoprophylaxis. Discharge Planning DC pending improvement clearance by consultants. Patient is refusing taking any meds, and has suicidal ideation. Reconsult psych Patient is stable medically and cleared by consultants for DC. Patient needs inpatient psych hospitalization. Discussed with the patient, nurse. Problem Qualifiers (1) T12 vertebral fracture: Qualified Code: S22.089D - Closed fracture of twelfth thoracic vertebra with routine healing, unspecified fracture morphology, subsequent encounter (2) Sepsis: Qualified Code: A41.9 - Sepsis, due to unspecified organism Shannon Wild MD Jul 21, 2016 11:42
[2016-07-21 12:00] VITALS: BP 120/67; PULSE 90; RESP 16; TEMP 96.7; O2SAT 98
--- NOTE | 2016-07-21 14:54 | HHI.PYPN ---
Subjective Remarks Patient was seen and case discussed with nursing. This is a reconsultation after patient refused his psychotropic medication yesterday and expressed suicidal thoughts. I spoke with the patient's who says pt does not endorse SI today. Per nurse he has been compliant with geodon/lithium and lithium level is pending. Today, pt is flat and hypoverbal. He expresses various delusional beliefs. Pt is "suffering the measures of the antichrist" and slowly believes that he is becoming like him. He is afraid he is going to . Denies AH but is confused at times by the people in the room. Describes ideas of reference from TV before admission. Mood is depressed but he denies suicidal ideation intent or plan. Psychomotor retardation. Objective Alert: Yes [place]: Person, Place, Date Mood: Depressed Affect: Restricted, Flat Memory Intact: Immediate Hallucinations: Other (not assessed due to lack of cooperation) Delusions: Yes Delusion Type: Paranoid (paranoid church delusions) Suicidal: Ideation (he endorses suicidal ideation, no plan) Homicidal: Ideation (no as assessed due to level of sedation) Insight/Judgement poor Labs Test 07/21/16 07:16 White Blood Count 6.1 TH/MM3 Red Blood Count 3.28 MIL/MM3 Hemoglobin 9.8 GM/DL Hematocrit 28.9 % Mean Corpuscular Volume 88.3 FL Mean Corpuscular Hemoglobin 29.9 PG Mean Corpuscular Hemoglobin 33.9 % Concent Red Cell Distribution Width 14.5 % Platelet Count 345 TH/MM3 Mean Platelet Volume 8.6 FL Neutrophils (%) (Auto) 68.1 % Lymphocytes (%) (Auto) 17.1 % Monocytes (%) (Auto) 11.1 % Eosinophils (%) (Auto) 2.3 % Basophils (%) (Auto) 1.4 % Neutrophils # (Auto) 4.1 TH/MM3 Lymphocytes # (Auto) 1.0 TH/MM3 Monocytes # (Auto) 0.7 TH/MM3 Eosinophils # (Auto) 0.1 TH/MM3 Basophils # (Auto) 0.1 TH/MM3 CBC Comment DIFF FINAL Differential Comment Sodium Level 140 MEQ/L Potassium Level 4.3 MEQ/L Chloride Level 106 MEQ/L Carbon Dioxide Level 23.4 MEQ/L Anion Gap 11 MEQ/L Blood Urea Nitrogen 12 MG/DL Creatinine 0.76 MG/DL Estimat Glomerular Filtration 112 ML/MIN Rate Random Glucose 95 MG/DL Calcium Level 8.6 MG/DL Vitals/IOs Vital Signs Date Time Temp Pulse Resp B/P Pulse Ox O2 Delivery O2 Flow Rate FiO2 07/21/16 12:00 96.7 90 16 120/67 98 07/19/16 12:06 21 Intake and Output 07/20/16 07/20/16 07/21/16 08:00 16:00 00:00 Intake Total 1200 ml 1920 ml Output Total 900 ml 1900 ml Balance 1200 ml -900 ml 20 ml Assessment & Plan Problem List: (1) Schizoaffective disorder, bipolar type ICD Code: F25.0 Assessment & Plan Given patient's acute psychosis, negative symptoms and mood instability, he should be admitted to psychiatry upon medical clearance. Preferably to the med/ psych unit given his arm apparatus Justification for Cont. Inpt. Acute psychosis Andrea Cleveland DO Jul 21, 2016 14:54
[2016-07-21 16:00] VITALS: BP 107/66; PULSE 84; RESP 18; TEMP 98.6; O2SAT 98
[2016-07-21] MEDS: ACETAMINOPHEN/HYDROcodone 325 MG/10 MG TAB PO PRN (20:59)
[2016-07-21 21:20] VITALS: BP 105/63; PULSE 94; RESP 18; TEMP 98.1; O2SAT 99
[2016-07-22] VITALS: BP 106/62; PULSE 85; RESP 19; TEMP 97.2; O2SAT 98
[2016-07-22] MEDS: PIPERACIL-TAZO 3.375 GM PREMIX 50 ML IV SCH ×4 (01:14→18:42)
[2016-07-22 04:00] VITALS: BP 112/66; PULSE 91; RESP 19; TEMP 97.2; O2SAT 97
[2016-07-22] MEDS: LEVOTHYROXINE SODIUM 150 MCG TAB PO SCH (06:00)
[2016-07-22 08:00] VITALS: BP 100/68; PULSE 72; RESP 16; TEMP 96.3; O2SAT 94
[2016-07-22] MEDS: NS + KCL 40 MEQ INJ 1,000 ML IV SCH ×2 (08:43→20:48)
[2016-07-22] MEDS: SODIUM CHLORIDE FLUSH BID IVF SCH ×2 (08:43→20:48)
[2016-07-22] MEDS: ZIPRASIDONE HCL 80 MG CAP PO SCH ×2 (09:00→20:48)
[2016-07-22] MEDS: DOCUSATE SODIUM 50 MG/SENNA 8.6 MG TAB PO SCH (09:00)
[2016-07-22] MEDS: REMOVE OLD NICOTINE PATCH T-DERMAL SCH (09:00)
[2016-07-22] MEDS: NICOTINE 21 MG/24 HR PATCH T-DERMAL SCH (09:00)
[2016-07-22] MEDS: PANTOPRAZOLE SOD 40 MG DELAYED RELEASE TAB PO SCH (09:00)
[2016-07-22] MEDS: OXcarbazepine 600 MG TAB PO SCH ×3 (09:00→18:00)
[2016-07-22 12:00] VITALS: BP 109/64; PULSE 74; RESP 18; TEMP 96.6; O2SAT 95
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
[2016-07-22 16:00] VITALS: BP 113/72; PULSE 64; RESP 18; TEMP 97.6; O2SAT 96
[2016-07-22] MEDS: LITHIUM CARBONATE 300 MG TAB PO SCH (20:48)
[2016-07-22 20:58] VITALS: BP 112/76; PULSE 89; RESP 20; TEMP 98.7; O2SAT 96
[2016-07-23 00:25] VITALS: BP 123/75; PULSE 91; RESP 20; TEMP 98.4; O2SAT 98
[2016-07-23] MEDS: PIPERACIL-TAZO 3.375 GM PREMIX 50 ML IV SCH ×5 (00:41→23:17)
[2016-07-23] MEDS: MAGNESIUM HYDROXIDE SUSP 30 ML CUP PO PRN ×2 (00:41→23:29)
[2016-07-23] MEDS: NS + KCL 40 MEQ INJ 1,000 ML IV SCH ×3 (01:47→23:17)
[2016-07-23 04:00] VITALS: BP 122/72; PULSE 86; RESP 20; TEMP 98.4; O2SAT 98
[2016-07-23] MEDS: LEVOTHYROXINE SODIUM 150 MCG TAB PO SCH (05:18)
--- NOTE | 2016-07-23 07:12 | PD.ORT.PN ---
Subjective Subjective Remarks POD 8 s/p left elbow ligament reconstruction with radial head replacement and revision exfix POD 11 s/p IMN right femur and ORIF left patella by Dr Perry s/p right patella fx doing well. flat affect. states no pain. Objective Vitals Vital Signs Date Time Temp Pulse Resp B/P Pulse Ox O2 Delivery O2 Flow Rate FiO2 07/23/16 04:00 98.4 86 20 122/72 98 07/23/16 00:25 98.4 91 20 123/75 98 07/22/16 20:58 98.7 89 20 112/76 96 07/22/16 16:00 97.6 64 18 113/72 96 07/22/16 12:00 96.6 74 18 109/64 95 07/22/16 08:00 96.3 72 16 100/68 94 I/O 07/22/16 07/22/16 07/22/16 07/23/16 07/23/16 07/23/16 07:00 15:00 23:00 07:00 15:00 23:00 Intake Total 240 ml 2166 ml Output Total 1600 ml 100 ml 2400 ml 1400 ml Balance -1600 ml 140 ml -2400 ml 766 ml Intake Oral 240 ml IV Total 2166 ml Output Urine Total 1600 ml 100 ml 2400 ml 1400 ml # Bowel Movements 0 Result Diagram: 07/21/1616 07/21/1616 Objective Remarks LUE: Patient is awake. Examination of left arm reveals pin sites are clean and dry. Good capillary refill in his fingers. He is able to extend his fingers slightly and also flex his fingers. + + sensation over the radial ulnar and median nerve distributions BLE: Patient in bilateral knee immobilizers. dressings B LE are c/d/i edema neg homans nvi Assessment & Plan Assessment and Plan 1)POD 11 I&D with ORIF L open Patella fx, R long intramedullary femoral nail for intertroch and fem shaft fxs, I&D L Hand with closure of traumatic wound, I& D L elbow with application of ex-fix 2) POD 8 status post complex repair of left elbow fracture dislocation with hinged external fixator Begin daily dressing changes and pin care twice a day Nonweightbearing left upper extremity 3) Right patella fracture to be treated nonoperatively with knee immobilizer and no range of motion of knee -HV Bilateral patella fractures continue knee immobilizers Right femur fracture status post IM nail Pelvic fractures --plan nonoperative treatment NWB BLE dvt prophylaxis med management psych management -will order new xray of right patella today -cleared for discharge to psych floor when bed available Omer Griffiths Jul 23, 2016 07:12
--- NOTE | 2016-07-23 07:19 | HHI.DS ---
Discharge Summary Admission Date Jul 15, 2016 at 23:30 Discharge Date: Jul 23, 2016 Admitting Diagnosis Right femur fracture left elbow fracture dislocation bilateral patella fractures pelvic fractures Diagnosis: (1) Elbow dislocation Diagnosis: Principal (2) Elbow fracture Diagnosis: Principal (3) Femur fracture, right Diagnosis: Principal (4) Multiple fractures Diagnosis: Principal (5) Patella fracture Diagnosis: Principal Procedures IMN right femur ORIF left open patella ORIF with ligamentous repair and external fixation left elbow nonop management of right patella and pelvic fxs Brief History This is a 40 year old male patient CBC/BMP: 07/21/16 0716 07/21/16 0716 Significant Findings Laboratory Tests Test 07/20/16 07/21/16 07:19 07:16 Red Blood Count 3.03 MIL/MM3 3.28 MIL/MM3 (4.50-5.90) (4.50-5.90) Hemoglobin 9.1 GM/DL 9.8 GM/DL (13.0-17.0) (13.0-17.0) Hematocrit 26.5 % 28.9 % (39.0-51.0) (39.0-51.0) Monocytes (%) (Auto) 9.5 % (0.0-8.0) 11.1 % (0.0-8.0) Lymphocytes # (Auto) 0.9 TH/MM3 (1.0-4.8) Calcium Level 8.4 MG/DL (8.5-10.1) [place] Level 0.3 MEQ/L (0.5-1.5) PE at Discharge LUE: Patient is awake. Examination of left arm reveals pin sites are clean and dry. Good capillary refill in his fingers. He is able to extend his fingers slightly and also flex his fingers. + + sensation over the radial ulnar and median nerve distributions BLE: Patient in bilateral knee immobilizers. dressings B LE are c/d/i edema neg [facility] Hospital Course Admitted to [facility] after suicide attempt. taken to OR for fixation of left patella and right femur by Dr Ray Perry. discharged to psych unit. readmitted for fixation of left elbow. nonop management of right patella and pelvic fxs. patient doing well. pain controlled. hemodynamically stable. fit for discharge to psych unit. will maintain NWB on LUE/BLE. daily dressing chages of right femur, left knee, pin care BID of left elbow. follow up with S[facility]er[facility] or [facility] in 1 week. if still on psych floor will f/u with him there. Pt Condition on Discharge: Good Discharge Disposition: Disc to Psych Care Fac Discharge Instructions Diet Instructions: As Tolerated, No Restrictions Activities You Can Perform: Non Weight Bearing Follow up Referrals: Orthopedics - 1 Week @ [facility] with Mil Gentile MD PCP Follow-up - 3-5 Days New Medications: [place] Carbonate ([place] Carbonate) 300 Mg Tab 300 MG PO Q12HR psych #30 TAB Nicotine Patch (Nicotine Patch) 21 Mg/24 Hr Patch 1 PATCH T-DERMAL DAILY smoking cessation #30 PATCH Continued Medications: Benztropine (Benztropine) 1 Mg Tab 1 MG PO HS #30 Ref 0 TAB Bupropion HCl ER 12 HR (Wellbutrin SR 12 HR) 150 Mg Tab 150 MG PO Q12HR Control Depression Ref 0 TAB Hydrocodone-Acetaminophen ([place]) 10-325 Mg Tab 1 TAB PO Q4H PRN PAIN #60 Ref 0 TAB Levothyroxine (Synthroid) 150 Mcg Tab 150 MCG PO DAILY Thyroid #30 Ref 0 TAB Oxcarbazepine (Trileptal) 600 Mg Tab 600 MG PO TID Seizure Control #60 Ref 0 TAB Rivaroxaban (Xarelto) 10 Mg Tab 10 MG PO DAILY Blood Clot Prevention #21 Ref 0 TAB Ziprasidone (Geodon) 80 Mg Cap 80 MG PO BID #60 Ref 0 CAP Omer Griffiths Jul 23, 2016 07:19
[2016-07-23 08:00] VITALS: BP 111/71; PULSE 94; RESP 18; TEMP 97.4; O2SAT 96
--- NOTE | 2016-07-23 08:16 | HHI.PR ---
Subjective Remarks In bed. Appears in nad. Says he doesn't have any pain. No n/v/d/c. Objective Vitals Vital Signs Date Time Temp Pulse Resp B/P Pulse Ox O2 Delivery O2 Flow Rate FiO2 07/23/16 04:00 98.4 86 20 122/72 98 07/23/16 00:25 98.4 91 20 123/75 98 07/22/16 20:58 98.7 89 20 112/76 96 07/22/16 16:00 97.6 64 18 113/72 96 07/22/16 12:00 96.6 74 18 109/64 95 I/O 07/22/16 07/22/16 07/22/16 07/23/16 07/23/16 07/23/16 07:00 15:00 23:00 07:00 15:00 23:00 Intake Total 240 ml 2166 ml Output Total 1600 ml 100 ml 2400 ml 1400 ml Balance -1600 ml 140 ml -2400 ml 766 ml Intake Oral 240 ml IV Total 2166 ml Output Urine Total 1600 ml 100 ml 2400 ml 1400 ml # Bowel Movements 0 Result Diagram: 07/21/16 0716 07/21/16 0716 Imaging Last Impressions Chest X-Ray 07/17/16 0000 Signed Impressions: Service Date/Time: July 18:30 - CONCLUSION: No acute disease. Julius Barillas MD FACR Objective Remarks GENERAL: This is a well-nourished, well-developed patient SKIN: Multiple lacerations and excoriated areas throughout entire body including face bilateral pressure most bilateral lower extremities. HEAD: Atraumatic. Normocephalic. No temporal or scalp tenderness. EYES: Extraocular motions intact. No scleral icterus. No injection or drainage. ENT: Nose without bleeding, purulent drainage or septal hematoma. Throat without erythema, tonsillar hypertrophy or exudate. Uvula midline. Airway patent. NECK: Trachea midline. No JVD or lymphadenopathy. Supple, nontender, no meningeal signs. CARDIOVASCULAR: Regular rate and rhythm without murmurs, gallops, or rubs. RESPIRATORY: Clear to auscultation. Breath sounds equal bilaterally. No wheezes , rales, or rhonchi. GASTROINTESTINAL: Abdomen soft, non-tender, nondistended. No guarding. MUSCULOSKELETAL: Bilateral lower extremity immobilizing devices present. Patient noted to have 1+to 2+ bilateral lower extremity pitting edema able to wiggle toes bilaterally. Left upper extremity in sling with external fixation device present able to wiggle fingers bilaterally NEUROLOGICAL: Awake and alert.difficult to assess motor strength due to multiple fractures, limited by pain. Sensory without gross deficits. Soft speech. A/P Problem List: (1) Suicide attempt ICD Code: T14.91 Status: Acute (2) Schizoaffective disorder, bipolar type ICD Code: F25.0 Status: Acute (3) HCAP (healthcare-associated pneumonia) ICD Code: J18.9 Status: Acute (4) Fever ICD Code: R50.9 Status: Acute (5) T12 vertebral fracture ICD Code: S22.089A Status: Acute (6) Multiple fractures ICD Code: T14.8 Status: Acute (7) Sepsis ICD Code: A41.9 Status: Acute Assessment and Plan Suicide attempt This a 50-year-old gentleman with a past medical history which includes hypothyroidism, bipolar and schizophrenia. Patient is status post trauma alert on 07/12/2016 secondary to suicide attempt patient jumped off a bridge onto railroad tracks. Patient sustained multiple fractures has been taken to the OR initially was in intensive care unit and intubated for airway protection as well as pain management. Patient was extubated 07/13/2016 and we have been consulted for assistance with medical management. Patient noticed to have a weak/soft voice. Patient does report occasional cough nonproductive but does sound moist in nature. Patient reports he is unsure how long the cough has been going on. Patient was noted to have a temperature of 102.0 07/14/2016 also noted to be tachycardic. Psychiatric consulted. Follow up recommendations. Schizoaffective disorder, bipolar type Management as per psychiatric. Continue Geodon as per psychiatry. Monitor EKG to monitor QT. Patient will need inpatient psychiatric admission. HCAP (healthcare-associated pneumonia) Yes x-ray obtained on 07/17/16 shows left-sided pleural effusion and basilar airspace atelectasis versus consolidation. Continue to treat with IV vancomycin and IV Zosyn, follow-up blood cultures, urine culture negative 48 hours. Continue supplemental oxygen, will add DuoNeb's as needed. Continue supplemental oxygen to keep on oxygen saturation more than 92%. Fever Patient had a fever of 102.0 associated with a cough and tachycardia. Likely sepsis syndrome due to H Area Chest x-ray obtained today shows left-sided pleural effusion and basilar airspace atelectasis versus consolidation. Add IS Continue empiric treatment with IV vancomycin and IV Zosyn. Blood cultures obtained with the patient was in the med psych unit are negative to date 4, urine culture shows no growth in 48 hours. Sore throat. Give lozengens T12 vertebral fracture Patient be followed by neurosurgery, no surgical indication this time, continue TLSO brace when patient is able to get out of bed. Multiple fractures Multiple orthopedic injuries s/p right femur IMN s/p exfix left elbow s/p ORIF left patella right patella fx nonop pelvic fxs Status post irrigation and debridement of the left elbow, with revision of external fixator of the left elbow. Replacement of left radial head, ligamentous reconstruction. Continue pain control and management as per orthopedic surgery. Sepsis Patient with a temperature of 102.0, tachycardia and CBC with leukocytosis of 14,000 on admission. On IV fluids and continue broad-spectrum IV antibiotics with IV Zosyn IV vancomycin. Hypothyroidism: Resume synthroid. Hypokalemia, likely secondary to poor oral intake, replace and monitor. GI prophylaxis: Cont. proton pump inhibitor DVT prophylaxis: SCDs, chemoprophylaxis as per orthopedic surgery. Patient currently on not on any chemoprophylaxis. Discharge Planning DC pending improvement clearance by consultants. Patient is refusing taking any meds, and has suicidal ideation. Reconsult psych Patient is stable medically and cleared by consultants for DC. Patient needs inpatient psych hospitalization. Discussed with the patient, nurse, family at bedside. Discussed with psychiatry Dr Sanford Patient is cleared both medically and surgically for discharge to inpatient psych when bed is available. Problem Qualifiers (1) T12 vertebral fracture: Qualified Code: S22.089D - Closed fracture of twelfth thoracic vertebra with routine healing, unspecified fracture morphology, subsequent encounter (2) Sepsis: Qualified Code: A41.9 - Sepsis, due to unspecified organism Shannon Wild MD Jul 23, 2016 08:16
[2016-07-23] MEDS: NICOTINE 21 MG/24 HR PATCH T-DERMAL SCH (09:00)
[2016-07-23] MEDS: REMOVE OLD NICOTINE PATCH T-DERMAL SCH (09:00)
[2016-07-23] MEDS: DOCUSATE SODIUM 50 MG/SENNA 8.6 MG TAB PO SCH (09:47)
[2016-07-23] MEDS: OXcarbazepine 600 MG TAB PO SCH ×3 (09:47→18:41)
[2016-07-23] MEDS: ZIPRASIDONE HCL 80 MG CAP PO SCH ×2 (09:47→23:17)
[2016-07-23] MEDS: PANTOPRAZOLE SOD 40 MG DELAYED RELEASE TAB PO SCH (09:47)
[2016-07-23] MEDS: LITHIUM CARBONATE 300 MG TAB PO SCH ×2 (09:48→23:17)
[2016-07-23] MEDS: SODIUM CHLORIDE FLUSH BID IVF SCH ×2 (09:48→21:00)
[2016-07-23 12:00] VITALS: BP 138/82; PULSE 98; RESP 18; TEMP 99.1; O2SAT 98
--- NOTE | 2016-07-23 13:11 | RADRPT ---
EXAM DATE/TIME: 07/23/2016 12:31 [facility] COMPARISON: KNEE RIGHT LTD (1 OR 2 VWS), July 14, 2016, 8:22. INDICATIONS : Follow up right knee fracture. MEDICAL HISTORY : None. SURGICAL HISTORY : ORIF right femur IM gregg. ENCOUNTER: Subsequent ACUITY: 2 weeks PAIN SCORE: 5/10 LOCATION: Right knee. FINDINGS: Fixation of a fracture of the distal femur with a gregg in place. The alignment is anatomic. The commin uted patellar fracture is present and unchanged. CONCLUSION: 1. Stable fractures Robson Ghotra MD on July 23, 2016 at 13:09 Board Certified Radiologist. This report was verified electronically.
--- NOTE | 2016-07-23 13:30 | HHI.PYPN ---
Subjective Remarks Patient was seen for evaluation today, surprisingly patient has a much brighter affect, reports very mood, he says that he is happy to be alive, denies depressive symptoms, was able to say that he doesn't think that he is the antichrist and wasn't in the past she has thought that he was he was wrong. Patient expressed understanding of the importance of taking his psychiatric medications in order to get better and be discharged. Patient expressed his motivation to continue to be medication compliant. He denies suicidal and homicidal ideation, denies visual and auditory hallucinations. Patient is fully oriented 3. Review of Systems Other No somatic complaint Objective Alert: Yes [place]: Person, Place, Date Mood: Calm Affect: Flat Memory Intact: Immediate Hallucinations: Other (none) Delusions: No Delusion Type: Paranoid (paranoid sabianist delusions), Other (none) Suicidal: Ideation (patient denies SI) Homicidal: Ideation (patient denies SI) Insight/Judgement Improved Vitals/IOs Vital Signs Date Time Temp Pulse Resp B/P Pulse Ox O2 Delivery O2 Flow Rate FiO2 07/23/16 08:00 97.4 94 18 111/71 96 07/19/16 12:06 21 Intake and Output 07/22/16 07/22/16 07/23/16 08:00 16:00 00:00 Intake Total 240 ml Output Total 1600 ml 100 ml 2400 ml Balance -1600 ml 140 ml -2400 ml Assessment & Plan Problem List: (1) Schizoaffective disorder, bipolar type Assessment & Plan: Patient shows a significant positive response to psychotropics. No delusions, no depressive symptoms observed or reported today. Patient denies suicidal or homicidal ideation. We'll continue current psychotropic regimen. We will order a lithium level. ICD Code: F25.0 Assessment & Plan Estimated LOS: days Justification for Cont. Inpt. Patient is to continue psychiatric hospitalization for stabilization Dariel Sanford MD Jul 23, 2016 13:30
[2016-07-23] MEDS ORDERED: NYSTAT/DIPHENHY/LIDO MOUTHWASH (Adult) 120ML SWISH-SWAL PRN (15:00)
[2016-07-23 16:00] VITALS: BP 107/69; PULSE 94; RESP 18; TEMP 97.9; O2SAT 99
[2016-07-23 20:22] VITALS: BP 120/69; PULSE 87; RESP 16; TEMP 97.2; O2SAT 98
[2016-07-24 01:08] VITALS: BP 119/78; PULSE 80; RESP 18; TEMP 97.2; O2SAT 99
[2016-07-24 04:00] VITALS: BP 117/72; PULSE 95; RESP 18; TEMP 97.8; O2SAT 98
[2016-07-24] MEDS: PIPERACIL-TAZO 3.375 GM PREMIX 50 ML IV SCH ×3 (05:17→17:57)
[2016-07-24] MEDS: LEVOTHYROXINE SODIUM 150 MCG TAB PO SCH (05:17)
[2016-07-24 08:38] VITALS: BP 105/61; PULSE 92; RESP 20; TEMP 98.1; O2SAT 98
[2016-07-24] MEDS: REMOVE OLD NICOTINE PATCH T-DERMAL SCH (09:00)
[2016-07-24] MEDS: DOCUSATE SODIUM 50 MG/SENNA 8.6 MG TAB PO SCH (09:39)
[2016-07-24] MEDS: OXcarbazepine 600 MG TAB PO SCH ×3 (09:39→17:57)
[2016-07-24] MEDS: PANTOPRAZOLE SOD 40 MG DELAYED RELEASE TAB PO SCH (09:39)
[2016-07-24] MEDS: LITHIUM CARBONATE 300 MG TAB PO SCH ×2 (09:39→21:41)
[2016-07-24] MEDS: NICOTINE 21 MG/24 HR PATCH T-DERMAL SCH (09:40)
[2016-07-24] MEDS: ZIPRASIDONE HCL 80 MG CAP PO SCH ×2 (09:44→21:41)
[2016-07-24] MEDS: SODIUM CHLORIDE FLUSH BID IVF SCH ×2 (09:45→21:41)
[2016-07-24] MEDS: NS + KCL 40 MEQ INJ 1,000 ML IV SCH ×2 (10:30→23:58)
[2016-07-24 12:14] VITALS: BP 120/72; PULSE 95; RESP 20; TEMP 98.4; O2SAT 98
--- NOTE | 2016-07-24 13:03 | HHI.PR ---
Subjective Remarks Says he still feels his mouth is dry. No sore throat. Pain is controlled by meds. No n/v/d/c. Objective Vitals Vital Signs Date Time Temp Pulse Resp B/P Pulse Ox O2 Delivery O2 Flow Rate FiO2 07/24/16 12:14 98.4 95 20 120/72 98 07/24/16 08:38 98.1 92 20 105/61 98 07/24/16 04:00 97.8 95 18 117/72 98 07/24/16 01:08 97.2 80 18 119/78 99 07/23/16 20:22 97.2 87 16 120/69 98 07/23/16 16:00 97.9 94 18 107/69 99 I/O 07/23/16 07/23/16 07/23/16 07/24/16 07/24/16 07/24/16 07:00 15:00 23:00 07:00 15:00 23:00 Intake Total 2166 ml 480 ml Output Total 1400 ml 2100 ml 1000 ml 800 ml Balance 766 ml -1620 ml -1000 ml -800 ml Intake Oral 480 ml IV Total 2166 ml Output Urine Total 1400 ml 2100 ml 1000 ml 800 ml # Bowel Movements 0 0 Result Diagram: 07/21/16 0716 07/21/16 0716 Imaging Last Impressions Knee X-Ray 07/23/16 0000 Signed Impressions: Service Date/Time: Saturday, July 23, 2016 12:31 - CONCLUSION: 1. Stable fractures Robson Ghotra MD Chest X-Ray 07/17/16 0000 Signed Impressions: Service Date/Time: July 18:30 - CONCLUSION: No acute disease. Julius Barillas MD FACR Objective Remarks GENERAL: This is a well-nourished, well-developed patient SKIN: Multiple lacerations and excoriated areas throughout entire body including face bilateral pressure most bilateral lower extremities. HEAD: Atraumatic. Normocephalic. No temporal or scalp tenderness. EYES: Extraocular motions intact. No scleral icterus. No injection or drainage. ENT: Nose without bleeding, purulent drainage or septal hematoma. Throat without erythema, tonsillar hypertrophy or exudate. Uvula midline. Airway patent. NECK: Trachea midline. No JVD or lymphadenopathy. Supple, nontender, no meningeal signs. CARDIOVASCULAR: Regular rate and rhythm without murmurs, gallops, or rubs. RESPIRATORY: Clear to auscultation. Breath sounds equal bilaterally. No wheezes , rales, or rhonchi. GASTROINTESTINAL: Abdomen soft, non-tender, nondistended. No guarding. MUSCULOSKELETAL: Bilateral lower extremity immobilizing devices present. Patient noted to have 1+to 2+ bilateral lower extremity pitting edema able to wiggle toes bilaterally. Left upper extremity in sling with external fixation device present able to wiggle fingers bilaterally NEUROLOGICAL: Awake and alert.difficult to assess motor strength due to multiple fractures, limited by pain. Sensory without gross deficits. Soft speech. A/P Problem List: (1) Suicide attempt ICD Code: T14.91 Status: Acute (2) Schizoaffective disorder, bipolar type ICD Code: F25.0 Status: Acute (3) HCAP (healthcare-associated pneumonia) ICD Code: J18.9 Status: Acute (4) Fever ICD Code: R50.9 Status: Acute (5) T12 vertebral fracture ICD Code: S22.089A Status: Acute (6) Multiple fractures ICD Code: T14.8 Status: Acute (7) Sepsis ICD Code: A41.9 Status: Acute Assessment and Plan Suicide attempt This a 50-year-old gentleman with a past medical history which includes hypothyroidism, bipolar and schizophrenia. Patient is status post trauma alert on 07/12/2016 secondary to suicide attempt patient jumped off a bridge onto railroad tracks. Patient sustained multiple fractures has been taken to the OR initially was in intensive care unit and intubated for airway protection as well as pain management. Patient was extubated 07/13/2016 and we have been consulted for assistance with medical management. Patient noticed to have a weak/soft voice. Patient does report occasional cough nonproductive but does sound moist in nature. Patient reports he is unsure how long the cough has been going on. Patient was noted to have a temperature of 102.0 07/14/2016 also noted to be tachycardic. Psychiatric consulted. Follow up recommendations. Schizoaffective disorder, bipolar type Management as per psychiatric. Continue Geodon as per psychiatry. Monitor EKG to monitor QT. Patient will need inpatient psychiatric admission. HCAP (healthcare-associated pneumonia) Yes x-ray obtained on 07/17/16 shows left-sided pleural effusion and basilar airspace atelectasis versus consolidation. Continue to treat with IV vancomycin and IV Zosyn, follow-up blood cultures, urine culture negative 48 hours. Continue supplemental oxygen, will add DuoNeb's as needed. Continue supplemental oxygen to keep on oxygen saturation more than 92%. Fever Patient had a fever of 102.0 associated with a cough and tachycardia. Likely sepsis syndrome due to H Area Chest x-ray obtained today shows left-sided pleural effusion and basilar airspace atelectasis versus consolidation. Add IS Continue empiric treatment with IV vancomycin and IV Zosyn. Blood cultures obtained with the patient was in the med psych unit are negative to date 4, urine culture shows no growth in 48 hours. Sore throat. Give lozengens T12 vertebral fracture Patient be followed by neurosurgery, no surgical indication this time, continue TLSO brace when patient is able to get out of bed. Multiple fractures Multiple orthopedic injuries s/p right femur IMN s/p exfix left elbow s/p ORIF left patella right patella fx nonop pelvic fxs Status post irrigation and debridement of the left elbow, with revision of external fixator of the left elbow. Replacement of left radial head, ligamentous reconstruction. Continue pain control and management as per orthopedic surgery. Sepsis Patient with a temperature of 102.0, tachycardia and CBC with leukocytosis of 14,000 on admission. On IV fluids and continue broad-spectrum IV antibiotics with IV Zosyn IV vancomycin. Hypothyroidism: Resume synthroid. Hypokalemia, likely secondary to poor oral intake, replace and monitor. GI prophylaxis: Cont. proton pump inhibitor DVT prophylaxis: SCDs, chemoprophylaxis as per orthopedic surgery. Patient currently on not on any chemoprophylaxis. Discharge Planning DC pending improvement clearance by consultants. Patient is refusing taking any meds, and has suicidal ideation. Reconsult psych Patient is stable medically and cleared by consultants for DC. Patient needs inpatient psych hospitalization. Discussed with the patient, nurse, family at bedside. Discussed with psychiatry Dr Sanford Patient is cleared both medically and surgically for discharge to inpatient psych when bed is available. Problem Qualifiers (1) T12 vertebral fracture: Qualified Code: S22.089D - Closed fracture of twelfth thoracic vertebra with routine healing, unspecified fracture morphology, subsequent encounter (2) Sepsis: Qualified Code: A41.9 - Sepsis, due to unspecified organism Shannon Wild MD Jul 24, 2016 13:03
--- NOTE | 2016-07-24 13:39 | HHI.PYPN ---
Subjective Remarks On reevaluation today patient seems to be distant, internally preoccupied, guarded, he says that he is struggling inside himself, but he does not elaborate about the context of his internal struggling, he does verbalize that he wants to leave and he does not want to commit suicide. His , present during most part of evaluation, he states that she believes that the patient has become psychotic again after watching TV, but definitely has too much better. Since patient is medically clear he will be transferred to the med psyc floor. He has been fully compliant with medications. Review of Systems Psychiatric: DENIES: Anxiety, Confusion, Mood changes, Depression, Hallucinations, Agitation, Suicidal Ideation, Homicidal Ideation, Delusions Other No somatic complaints Objective Alert: Yes [place]: Person, Place, Date Mood: Depressed Affect: Flat Memory Intact: Immediate Hallucinations: Other (none) Delusions: No Delusion Type: Paranoid (paranoid religion delusions), Other (none) Suicidal: Ideation (patient denies SI) Homicidal: Ideation (patient denies SI) Insight/Judgement Poor Labs Test 07/23/16 15:59 [place] Level 0.5 MEQ/L Vitals/IOs Vital Signs Date Time Temp Pulse Resp B/P Pulse Ox O2 Delivery O2 Flow Rate FiO2 07/24/16 12:14 98.4 95 20 120/72 98 Intake and Output 07/23/16 07/23/16 07/24/16 08:00 16:00 00:00 Intake Total 2166 ml 480 ml Output Total 1400 ml 2100 ml 1000 ml Balance 766 ml -1620 ml -1000 ml Assessment & Plan Problem List: (1) Schizoaffective disorder, bipolar type Assessment & Plan: The patient will continue the process of psychiatric hospitalization for stabilization, safety and to adjust psychotropics. Patient seems to be improving slowly, lithium level reviewed 0.5, will increase lithium to 600 mg twice a day. Since patient is now medically clear, he can be transferred to Med/psy unit. ICD Code: F25.0 Assessment & Plan Estimated LOS: days Justification for Cont. Inpt. Patient needs psychiatric admission for stabilization on psychotropic adjustment Dariel Sanford MD Jul 24, 2016 13:39
[2016-07-24 19:00] VITALS: BP 118/77; PULSE 93; RESP 20; TEMP 98.8; O2SAT 99
[2016-07-24 20:00] VITALS: BP 113/75; PULSE 97; RESP 18; TEMP 97.8; O2SAT 98
[2016-07-25] VITALS: BP 118/77; PULSE 82; RESP 18; TEMP 97.4; O2SAT 98
[2016-07-25] MEDS: PIPERACIL-TAZO 3.375 GM PREMIX 50 ML IV SCH ×4 (00:57→18:24)
[2016-07-25 04:00] VITALS: BP 120/81; PULSE 60; RESP 18; TEMP 98.6; O2SAT 96
[2016-07-25] MEDS: LEVOTHYROXINE SODIUM 150 MCG TAB PO SCH (06:00)
[2016-07-25] MEDS: NS + KCL 40 MEQ INJ 1,000 ML IV SCH (06:30)
--- NOTE | 2016-07-25 06:47 | PD.ORT.PN ---
Subjective Subjective Remarks Resting comfortably with no new complaints Objective Vitals Vital Signs Date Time Temp Pulse Resp B/P Pulse Ox O2 Delivery O2 Flow Rate FiO2 07/25/16 00:00 97.4 82 18 118/77 98 07/24/16 20:00 97.8 97 18 113/75 98 07/24/16 19:00 98.8 93 20 118/77 99 07/24/16 12:14 98.4 95 20 120/72 98 07/24/16 08:38 98.1 92 20 105/61 98 I/O 07/24/16 07/24/16 07/24/16 07/25/16 07/25/16 07/25/16 07:00 15:00 23:00 07:00 15:00 23:00 Intake Total 2472 ml Output Total 800 ml 3100 ml Balance -800 ml -3100 ml 2472 ml IV Total 2472 ml Output Urine Total 800 ml 3100 ml # Bowel Movements 0 Result Diagram: 07/21/16 0716 07/21/16 0716 Procedures IMN right femur ORIF left open patella ORIF with ligamentous repair and external fixation left elbow nonop management of right patella and pelvic fxs Objective Remarks LUE: Patient is awake. Examination of left arm reveals pin sites are clean and dry. Good capillary refill in his fingers. He is able to extend his fingers slightly and also flex his fingers. + + sensation over the radial ulnar and median nerve distributions BLE: Patient in bilateral knee immobilizers. dressings B LE are c/d/i edema neg homans nvi Assessment & Plan Problem List: (1) Elbow dislocation (2) Elbow fracture (3) Femur fracture, right (4) Multiple fractures (5) Patella fracture Assessment and Plan 1)POD 12 I&D with ORIF L open Patella fx, R long intramedullary femoral nail for intertroch and fem shaft fxs, I&D L Hand with closure of traumatic wound, I& D L elbow with application of ex-fix( [place]) 2) POD 9 status post complex repair of left elbow fracture dislocation with hinged external fixator([place]) Begin daily dressing changes and pin care twice a day Nonweightbearing left upper extremity Occupational therapy for ROM of fingers 3) Right patella fracture to be treated nonoperatively with knee immobilizer and no range of motion of knee -HV Bilateral patella fractures continue knee immobilizers Right femur fracture status post IM nail Pelvic fractures --plan nonoperative treatment NWB BLE dvt prophylaxis med management psych management ALANNA MOSS PA-C Jul 25, 2016 06:47
[2016-07-25 08:21] VITALS: BP 112/67; PULSE 88; RESP 20; TEMP 97.7; O2SAT 97
[2016-07-25] MEDS ORDERED: LITHIUM CARBONATE 300 MG TAB PO SCH (09:00)
[2016-07-25] MEDS: REMOVE OLD NICOTINE PATCH T-DERMAL SCH (09:00)
[2016-07-25] MEDS: NICOTINE 21 MG/24 HR PATCH T-DERMAL SCH (09:00)
--- NOTE | 2016-07-25 09:08 | HHI.PR ---
Subjective Remarks Patient is in nad. Feels much better today. Takes his meds. Discussed with psych service Dr Sanford. Patient will benefit from med psych. Objective Vitals Vital Signs Date Time Temp Pulse Resp B/P Pulse Ox O2 Delivery O2 Flow Rate FiO2 07/25/16 08:21 97.7 88 20 112/67 97 07/25/16 04:00 98.6 60 18 120/81 96 07/25/16 00:00 97.4 82 18 118/77 98 07/24/16 20:00 97.8 97 18 113/75 98 07/24/16 19:00 98.8 93 20 118/77 99 07/24/16 12:14 98.4 95 20 120/72 98 I/O 07/24/16 07/24/16 07/24/16 07/25/16 07/25/16 07/25/16 07:00 15:00 23:00 07:00 15:00 23:00 Intake Total 2472 ml Output Total 800 ml 3100 ml 900 ml Balance -800 ml -3100 ml 2472 ml -900 ml IV Total 2472 ml Output Urine Total 800 ml 3100 ml 900 ml # Bowel Movements 0 Result Diagram: 07/21/16 0716 07/21/16 0716 Imaging Last Impressions Knee X-Ray 07/23/16 0000 Signed Impressions: Service Date/Time: Saturday, July 23, 2016 12:31 - CONCLUSION: 1. Stable fractures Robson Ghotra MD Chest X-Ray 07/17/16 0000 Signed Impressions: Service Date/Time: July 18:30 - CONCLUSION: No acute disease. Julius Barillas MD FACR Objective Remarks GENERAL: This is a well-nourished, well-developed patient SKIN: Multiple lacerations and excoriated areas throughout entire body including face bilateral pressure most bilateral lower extremities. HEAD: Atraumatic. Normocephalic. No temporal or scalp tenderness. EYES: Extraocular motions intact. No scleral icterus. No injection or drainage. ENT: Nose without bleeding, purulent drainage or septal hematoma. Throat without erythema, tonsillar hypertrophy or exudate. Uvula midline. Airway patent. NECK: Trachea midline. No JVD or lymphadenopathy. Supple, nontender, no meningeal signs. CARDIOVASCULAR: Regular rate and rhythm without murmurs, gallops, or rubs. RESPIRATORY: Clear to auscultation. Breath sounds equal bilaterally. No wheezes , rales, or rhonchi. GASTROINTESTINAL: Abdomen soft, non-tender, nondistended. No guarding. MUSCULOSKELETAL: Bilateral lower extremity immobilizing devices present. Patient noted to have 1+to 2+ bilateral lower extremity pitting edema able to wiggle toes bilaterally. Left upper extremity in sling with external fixation device present able to wiggle fingers bilaterally NEUROLOGICAL: Awake and alert.difficult to assess motor strength due to multiple fractures, limited by pain. Sensory without gross deficits. Soft speech. A/P Problem List: (1) Suicide attempt ICD Code: T14.91 Status: Acute (2) Schizoaffective disorder, bipolar type ICD Code: F25.0 Status: Acute (3) HCAP (healthcare-associated pneumonia) ICD Code: J18.9 Status: Acute (4) Fever ICD Code: R50.9 Status: Acute (5) T12 vertebral fracture ICD Code: S22.089A Status: Acute (6) Multiple fractures ICD Code: T14.8 Status: Acute (7) Sepsis ICD Code: A41.9 Status: Acute Assessment and Plan Suicide attempt This a 50-year-old gentleman with a past medical history which includes hypothyroidism, bipolar and schizophrenia. Patient is status post trauma alert on 07/12/2016 secondary to suicide attempt patient jumped off a bridge onto railroad tracks. Patient sustained multiple fractures has been taken to the OR initially was in intensive care unit and intubated for airway protection as well as pain management. Patient was extubated 07/13/2016 and we have been consulted for assistance with medical management. Patient noticed to have a weak/soft voice. Patient does report occasional cough nonproductive but does sound moist in nature. Patient reports he is unsure how long the cough has been going on. Patient was noted to have a temperature of 102.0 07/14/2016 also noted to be tachycardic. Psychiatric consulted. Follow up recommendations. Schizoaffective disorder, bipolar type Management as per psychiatric. Continue Geodon as per psychiatry. Monitor EKG to monitor QT. Patient will need inpatient psychiatric admission. HCAP (healthcare-associated pneumonia) Yes x-ray obtained on 07/17/16 shows left-sided pleural effusion and basilar airspace atelectasis versus consolidation. Continue to treat with IV vancomycin and IV Zosyn, follow-up blood cultures, urine culture negative 48 hours. Continue supplemental oxygen, will add DuoNeb's as needed. Continue supplemental oxygen to keep on oxygen saturation more than 92%. Fever Patient had a fever of 102.0 associated with a cough and tachycardia. Likely sepsis syndrome due to H Area Chest x-ray obtained today shows left-sided pleural effusion and basilar airspace atelectasis versus consolidation. Add IS Continue empiric treatment with IV vancomycin and IV Zosyn. Blood cultures obtained with the patient was in the med psych unit are negative to date 4, urine culture shows no growth in 48 hours. Sore throat. Give lozengens T12 vertebral fracture Patient be followed by neurosurgery, no surgical indication this time, continue TLSO brace when patient is able to get out of bed. Multiple fractures Multiple orthopedic injuries s/p right femur IMN s/p exfix left elbow s/p ORIF left patella right patella fx nonop pelvic fxs Status post irrigation and debridement of the left elbow, with revision of external fixator of the left elbow. Replacement of left radial head, ligamentous reconstruction. Continue pain control and management as per orthopedic surgery. Sepsis Patient with a temperature of 102.0, tachycardia and CBC with leukocytosis of 14,000 on admission. On IV fluids and continue broad-spectrum IV antibiotics with IV Zosyn IV vancomycin. Hypothyroidism: Resume synthroid. Hypokalemia, likely secondary to poor oral intake, replace and monitor. GI prophylaxis: Cont. proton pump inhibitor DVT prophylaxis: SCDs, chemoprophylaxis as per orthopedic surgery. Patient currently on not on any chemoprophylaxis. Discharge Planning DC pending improvement clearance by consultants. Patient is refusing taking any meds, and has suicidal ideation. Reconsult psych Patient is stable medically and cleared by consultants for DC. Patient needs inpatient psych hospitalization. Discussed with the patient, nurse, family at bedside. Discussed with psychiatry Dr Sanford Patient is cleared both medically and surgically for discharge to inpatient med - psych when bed is available. Problem Qualifiers (1) T12 vertebral fracture: Qualified Code: S22.089D - Closed fracture of twelfth thoracic vertebra with routine healing, unspecified fracture morphology, subsequent encounter (2) Sepsis: Qualified Code: A41.9 - Sepsis, due to unspecified organism Cosma,Shannon MD Jul 25, 2016 09:08
[2016-07-25] MEDS: DOCUSATE SODIUM 50 MG/SENNA 8.6 MG TAB PO SCH (09:57)
[2016-07-25] MEDS: PANTOPRAZOLE SOD 40 MG DELAYED RELEASE TAB PO SCH (09:58)
[2016-07-25] MEDS: OXcarbazepine 600 MG TAB PO SCH ×3 (09:58→18:24)
[2016-07-25] MEDS: ZIPRASIDONE HCL 80 MG CAP PO SCH (09:58)
[2016-07-25] MEDS: SODIUM CHLORIDE FLUSH BID IVF SCH (10:00)
--- NOTE | 2016-07-25 10:35 | HHI.PYPN ---
Subjective Remarks Patient was seen for evaluation today at bedside, patient was found watching TV , with a much brighter affect than yesterday, smiling, calm and cooperative. Patient says that he feels much better today, he describes his mood as "improving", he says that he has been thinking about his illnesses, his past and his future. He says is going to be difficult to leave the hospital and have nothing to the, but he has been thinking in doing some voluntarism in a hospital as a way to maintain himself busy and doing something productive. At this moment the patient denies depression, he denies anxiety, he denies paranoia , he denies ideas of reference, thought control, perceptual disturbances. Different that yesterday, when I ask him what is going on in TV he told that this is the president inauguration and he doesn't feel that the messages in television are especially delivered to him as has happened in the past "I can See clearly Mr. Patel talking to the nation". As per sitter, patient has been in a better mood, more communicative, smiling often over he has been eating and taking his medication. Review of Systems Other No somatic complaints today Objective Alert: Yes [place]: Person, Place, Date, Situation Mood: Calm Affect: Euthymic Memory Intact: Immediate, Recent, Remote Hallucinations: Other (none) Delusions: No Delusion Type: Other (none) Suicidal: Ideation (patient denies SI) Homicidal: Ideation (patient denies SI) Insight/Judgement Improved Vitals/IOs Vital Signs Date Time Temp Pulse Resp B/P Pulse Ox O2 Delivery O2 Flow Rate FiO2 07/25/16 08:21 97.7 88 20 112/67 97 Intake and Output 07/24/16 07/24/16 07/25/16 08:00 16:00 00:00 Output Total 800 ml 3100 ml Balance -800 ml -3100 ml Assessment & Plan Problem List: (1) Schizoaffective disorder, bipolar type Assessment & Plan: Today patient is showing a significant improvement in his mood, thought processes, speech, behavior. He denies depression, anxiety, perceptual disturbance. He denies psychosis, especially paranoia, thought controlling and ideas of reference. Patient definitely has been responding adequately to current medication regimen, but still need to continue for psychiatric admission for stabilization, more part patient medication adjustment , but the most important to coordinate a safe discharge that include close outpatient psychiatric follow-up. No changes in psychotropics today. ICD Code: F25.0 Assessment & Plan Estimated LOS: days Justification for Cont. Inpt. Patient needs psychiatric admission for stabilization, medication adjustment, and to coordinate a safe discharge Dariel Sanford MD Jul 25, 2016 10:35
[2016-07-25 12:40] VITALS: BP 113/72; PULSE 99; RESP 20; TEMP 97.6; O2SAT 97
[2016-07-25 17:08] VITALS: BP 104/63; PULSE 92; RESP 20; TEMP 96.7; O2SAT 97
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
== END 2016-07-25 19:58 | DRG 871 ==
LOC: N05A 23:30
PROVIDERS: ADMIT Orthopaedic Surgery Orthopaedic Trauma; ATTEND Orthopaedic Surgery Orthopaedic Trauma
DX: A41.9 Sepsis, unspecified organism (principal); J18.9 Pneumonia, unspecified organism; S22.089A Unspecified fracture of T11-T12 vertebra, initial encounter for closed fracture; S72.92XA Unspecified fracture of left femur, initial encounter for closed fracture; S02.19XA Other fracture of base of skull, initial encounter for closed fracture; S72.309A Unspecified fracture of shaft of unspecified femur, initial encounter for closed fracture; S82.001A Unspecified fracture of right patella, initial encounter for closed fracture; S42.402A Unspecified fracture of lower end of left humerus, initial encounter for closed fracture; F25.0 Schizoaffective disorder, bipolar type; Y95 Nosocomial condition; E03.9 Hypothyroidism, unspecified
CPT/HCPCS: 71010; 73560; 76937; 80048; 80053; 80178; 83735; 84100; 84439; 84443; 84481; 85025; J0690; J2060; J2270; J2543; J3370; J3480; J7050

== ENCOUNTER 2016-07-25 11:48 | Inpatient (IN) | payer BC ==
[~2016-07-25] VITALS: Ht 180.3 cm; Wt 86.4 kg
[~2016-07-25 11:48] MED LIST changes: -DO NOT ADM ANY ANTICOAGULANT DRUGS XX PRN; +LITH300T3 PO; +NICO21DI2 T-DERMAL
[2016-07-25 20:15] VITALS: BP 116/66; PULSE 88; RESP 17; TEMP 98.5; O2SAT 97
[2016-07-25] MEDS ORDERED: ALUMINUM/MAGNESIUM/SIMETH 30 ML CUP PO PRN (20:30)
[2016-07-25] MEDS ORDERED: LORazepam 2 MG/ML VIAL IM PRN (20:30)
[2016-07-25] MEDS ORDERED: REMOVE OLD NICOTINE PATCH T-DERMAL SCH (21:00)
[2016-07-26] VITALS: BP 126/72; PULSE 88; RESP 16; TEMP 98.8; O2SAT 97
[2016-07-26] MEDS: ACETAMINOPHEN 325 MG TAB PO PRN ×2 (02:02→22:01)
[2016-07-26] MEDS: LORazepam 1 MG TAB PO PRN ×2 (02:02→22:01)
[2016-07-26 05:49] VITALS: BP 120/74; PULSE 82; RESP 16; TEMP 97.7; O2SAT 98
[2016-07-26 08:00] VITALS: BP 110/79; PULSE 84; RESP 18; TEMP 98.2; O2SAT 97
[2016-07-26 08:52] LABS: ANION GAP 8 MEQ/L (5-15); BICARBONATE 23.1 MEQ/L (21.0-32.0); CHLORIDE 103 MEQ/L (98-107); GLOMERULAR FILTRATION RATE 103 ML/MIN (>89); HDL CHOLESTEROL 31.7 MG/DL (40.0-60.0); LDL CHOLESTEROL 104 MG/DL (0-99); POTASSIUM 4.2 MEQ/L (3.5-5.1); SODIUM (NA) 134 MEQ/L (136-145)
[2016-07-26 08:55] LABS: BLOOD UREA NITROGEN 15 MG/DL (7-18)
[2016-07-26] MEDS ORDERED: NICOTINE 21 MG/24 HR PATCH T-DERMAL SCH (09:00)
--- NOTE | 2016-07-26 11:09 | PD.CONS ---
HPI Service [facility] Consult Requested By Psychiatry team Reason for Consult Medical management Primary Care Physician Unknown Diagnoses: History of Present Illness Patient is a 50-year-old white male with past medical history of hypothyroidism , bipolar and schizophrenia. Patient is status post trauma on 07/12/2016 secondary to suicide attempt. Patient [place]. Patient sustained multiple fractures has been taken to the OR initially. He was in intensive care unit and intubated for airway protection, and pain management. Patient was extubated 07/13/2016. Due to multiple fractures patient had multiple surgical intervention while he was in inpatient setting at [facility]. Surgical intervention intervention includes: s/p right femur IMN s/p exfix left elbow s/p ORIF left patella right patella fx nonop pelvic fxs Patient received 4 units PRBCs, 1 FFP and platelets while in the OR. While inpatient, pertinent imaging includes: CT head - left sphenoid fracture - CT maxillofacial no fracture seen CT C-spine - negative CT T spine -20% endplate T12 compression fracture- per neurosurgery nonoperative recommend May be mobilized out of bed with TLSO brace from neurosurgical standpoint. CT L-spine - negative CT chest - negative CT abdomen pelvis - free fluid in pelvis/upper abdomen Left IT/midshaft femoral fracture, left pubic sacral and left patellar fractures Right left proximal radial/ulnar fracture with dislocation His last readmission to inpatient hospital was for left elbow fixation. As per or so notes nonoperative management of right patella and pelvic fractures. Patient will maintain nonweightbearing on left upper extremity/bilateral lower extremity with daily dressing changes to the right femur, left knee, pinned care twice a day of left elbow. Patient will also continue to follow-up with Dr. Gentile if discharged home. Patient is now admitted to inpatient medical psychiatry unit for further management of psychiatry disorder. Consulted for medical management. Patient seen today. Very flat affect. Response to questions and commands. States he doesn't want to drink water because he feel he is coughing after drinking. Otherwise, denies pain and discomfort. Denies SOB/ dyspnea. Denies chestpain, palpitations, headaches, dizziness. Denies fevers, chills, n/v/d. Review of Systems Other Negative except for what is noted on history of present illness. Past Family Social History Allergies: Coded Allergies: Haldol (Verified Allergy, Unknown, 07/13/16) Past Medical History Depression Hypothyroidism Past Surgical History Denies Reported Medications New Medications: [place] Carbonate (Santaquin Carbonate) 300 Mg Tab 300 MG PO Q12HR psych #30 TAB Nicotine Patch (Nicotine Patch) 21 Mg/24 Hr Patch 1 PATCH T-DERMAL DAILY smoking cessation #30 PATCH Continued Medications: Benztropine (Benztropine) 1 Mg Tab 1 MG PO HS #30 Ref 0 TAB Bupropion HCl ER 12 HR (Wellbutrin SR 12 HR) 150 Mg Tab 150 MG PO Q12HR Control Depression Ref 0 TAB Hydrocodone-Acetaminophen ([place]) 10-325 Mg Tab 1 TAB PO Q4H PRN PAIN #60 Ref 0 TAB Levothyroxine (Synthroid) 150 Mcg Tab 150 MCG PO DAILY Thyroid #30 Ref 0 TAB Oxcarbazepine (Trileptal) 600 Mg Tab 600 MG PO TID Seizure Control #60 Ref 0 TAB Rivaroxaban (Xarelto) 10 Mg Tab 10 MG PO DAILY Blood Clot Prevention #21 Ref 0 TAB Ziprasidone (Geodon) 80 Mg Cap 80 MG PO BID #60 Ref 0 CAP Active Ordered Medications Current Medications Medications (Trade) Dose Ordered Sig/Jonathan Route Start Time Stop Time Status Last Admin (Ativan) 1 mg Q6H PRN PO 07/25/16 20:30 07/26/16 02:02 (Ativan Inj) 1 mg Q6H PRN IM 07/25/16 20:30 (Tylenol) 650 mg Q4H PRN PO 07/25/16 20:30 07/26/16 02:02 (Milk Of Magnesia Liq) 30 ml DAILY PRN PO 07/25/16 20:30 (Mag-Al Plus Susp Liq) 30 ml Q6H PRN PO 07/25/16 20:30 (Synthroid) 150 mcg DAILY@0600 PO 07/26/16 11:15 (Chloraseptic Alexandre) 1 lozenge Q4HR PRN BUCCAL 07/26/16 11:15 (Mary-Colace) 2 tab DAILY PO 07/26/16 11:15 07/26/16 11:15 (Protonix) 40 mg DAILY PO 07/26/16 11:15 07/26/16 11:15 (Xarelto) 10 mg DAILY PO 07/26/16 11:15 07/26/16 11:15 (Geodon) 80 mg BID PO 07/26/16 13:00 07/26/16 13:00 Family History Father had PR at 60 Social History Denies alcohol use Denies tobacco use Denies illicit drug use Physical Exam Vital Signs Vital Signs Date Time Temp Pulse Resp B/P Pulse Ox O2 Delivery O2 Flow Rate FiO2 07/26/16 08:00 98.2 84 18 110/79 97 07/26/16 05:49 97.7 82 16 120/74 98 07/26/16 00:00 98.8 88 16 126/72 97 07/25/16 20:15 98.5 88 17 116/66 97 Physical Exam GENERAL: This is a well-nourished, well-developed patient, in no apparent distress. SKIN: No rashes, ecchymoses or lesions. Cool and dry. HEAD: Atraumatic. Normocephalic. No temporal or scalp tenderness. EYES: Pupils equal round and reactive. Extraocular motions intact. No scleral icterus. No injection or drainage. ENT: Nose without bleeding. Throat without erythema. Uvula midline. Airway patent. NECK: Trachea midline. No JVD or lymphadenopathy. Supple, nontender, no meningeal signs. CARDIOVASCULAR: Regular rate and rhythm without murmurs, gallops, or rubs. RESPIRATORY: Diminished bases. No wheezes, rales, or rhonchi. GASTROINTESTINAL: Abdomen soft, non-tender, nondistended. No hepato-splenomegaly , or palpable masses. No guarding. MUSCULOSKELETAL: Extremities without clubbing, cyanosis, bilateral lower extremity trace edema. Able to wiggle bilateral toes and move bilateral foot weekly. Left upper extremity with ex-fix. NEUROLOGICAL: Awake and alert. Flat affect. Oriented to self, and place. Motor and sensory grossly within normal limits. Normal speech. Laboratory Laboratory Tests Test 07/26/16 07:52 Sodium Level 134 Potassium Level 4.2 Chloride Level 103 Carbon Dioxide Level 23.1 Anion Gap 8 Blood Urea Nitrogen 15 Creatinine 0.82 Estimat Glomerular Filtration 103 Rate Random Glucose 85 Calcium Level 8.8 Triglycerides Level 145 Cholesterol Level 165 LDL Cholesterol 104 HDL Cholesterol 31.7 Cholesterol/HDL Ratio 5.20 Result Diagram: 07/26/16 0752 Assessment and Plan Problem List: (1) Schizoaffective disorder, bipolar type ICD Code: F25.0 Status: Acute (2) Femur fracture, right ICD Code: S72.91XA Status: Acute (3) Elbow fracture ICD Code: S42.409A Status: Acute (4) Patella fracture ICD Code: S82.009A Status: Acute (5) T12 vertebral fracture ICD Code: S22.089A Status: Acute (6) Hypothyroidism ICD Code: E03.9 Status: Chronic Assessment and Plan This a 50-year-old gentleman with a past medical history which includes hypothyroidism, bipolar and schizophrenia. Patient is status post trauma alert on 07/12/2016 secondary to suicide attempt patient jumped off a bridge onto railroad tracks. Patient sustained multiple fractures has been taken to the OR initially was in intensive care unit and intubated for airway protection as well as pain management. Patient was extubated 07/13/2016. Bipolar, schizophrenia - managed by psychiatry team Multiple surgical interventions including: Patient received 4 units PRBCs, 1 FFP and platelets while in the OR. s/p right femur IMN s/p exfix left elbow s/p ORIF left patella right patella fx nonop pelvic fxs Latest surgical intervention- Status post Left elbow ex fix, redo Per Ortho, nonoperative management of right patella and pelvic fractures. Patient will maintain nonweightbearing on left upper extremity/bilateral lower extremity with daily dressing changes to the right femur, left knee, pinned care twice a day of left elbow. Patient will also continue to follow-up with Dr. Gentile if discharged home. - Xarelto 10 mg daily - Physical therapy/occupational therapy to treat and eval Hypothyroidism - continue levothyroxine 150mg daily DVT Prop Xarelto GI Prop Protonix Thank you for this consultation. We will follow patient with you. Written by Sera Jameson, acting as scribe for Dr. Quijano on 07/26/16 at 14: 12. The documentation accurately reflects the work performed [id number] by me on at 14:12. Code Status Full code Discussed Condition With Patient, nursing Sera Brandon Jul 26, 2016 11:09 Belinda Quijano MD Jul 27, 2016 10:41
[2016-07-26] MEDS: PANTOPRAZOLE SOD 40 MG DELAYED RELEASE TAB PO SCH (11:15)
[2016-07-26] MEDS: LEVOTHYROXINE SODIUM 150 MCG TAB PO SCH (11:15)
[2016-07-26] MEDS: RIVAROXABAN 10 MG TAB PO SCH (11:15)
[2016-07-26] MEDS: DOCUSATE SODIUM 50 MG/SENNA 8.6 MG TAB PO SCH (11:15)
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
[2016-07-26] MEDS ORDERED: ZIPRASIDONE HCL 80 MG CAP PO SCH (12:00)
[2016-07-26] MEDS: ZIPRASIDONE HCL 40 MG CAP PO SCH ×2 (13:00→20:33)
[2016-07-26 19:00] VITALS: BP 128/71; PULSE 93; RESP 18; TEMP 97.1; O2SAT 97
[2016-07-27] VITALS: BP 109/64; PULSE 91; RESP 16; TEMP 97.6; O2SAT 98
[2016-07-27 05:14] VITALS: BP 108/67; PULSE 88; RESP 14; TEMP 97.3; O2SAT 98
[2016-07-27] MEDS: LEVOTHYROXINE SODIUM 150 MCG TAB PO SCH (05:17)
--- NOTE | 2016-07-27 08:07 | PD.ORT.PN ---
Subjective Subjective Remarks s/p right femur IMN s/p ORIF left patella s/p non op treatment right patella s/p ligamentous reconstruction with Exfix left elbow s/p non op pelvis fxs doing well. pain controlled. no complaints Objective Vitals Vital Signs Date Time Temp Pulse Resp B/P Pulse Ox O2 Delivery O2 Flow Rate FiO2 07/27/16 05:14 97.3 88 14 108/67 98 07/27/16 00:00 97.6 91 16 109/64 98 07/26/16 19:00 97.1 93 18 128/71 97 I/O 07/26/16 07/26/16 07/26/16 07/27/16 07/27/16 07/27/16 07:00 15:00 23:00 07:00 15:00 23:00 Intake Total 680 ml 480 ml 1270 ml Output Total 750 ml 1875 ml 1000 ml Balance -70 ml 480 ml -605 ml -1000 ml Intake Oral 480 ml 480 ml 1270 ml IV Total 200 ml Output Urine Total 750 ml 1875 ml 1000 ml # Bowel Movements 0 0 0 Result Diagram: 07/26/16 0752 Objective Remarks LUE: +elbow exfix. pin sits clean and dry. NVI distally with good extension of wrist and fingers LLE: dressing clean and dry. intact. +CKS. NVI RLE: +CKS. moderate swelling. NVI. dressing of hip clean and dry Assessment & Plan Assessment and Plan 1)POD 14 I&D with ORIF L open Patella fx, R long intramedullary femoral nail for intertroch and fem shaft fxs, I&D L Hand with closure of traumatic wound, I& D L elbow with application of ex-fix( [place]) 2) POD 11 status post complex repair of left elbow fracture dislocation with hinged external fixator(Seferino) Begin daily dressing changes and pin care twice a day Nonweightbearing left upper extremity Occupational therapy for ROM of fingers 3) Right patella fracture to be treated nonoperatively with knee immobilizer and no range of motion of knee Bilateral patella fractures continue knee immobilizers Right femur fracture status post IM nail Pelvic fractures --plan nonoperative treatment NWB BLE dvt prophylaxis med management psych management -will order xrays of right femur and left patella for 2 week check. Omer Griffiths Jul 27, 2016 08:07
[2016-07-27] MEDS: ZIPRASIDONE HCL 40 MG CAP PO SCH ×2 (10:00→22:15)
[2016-07-27] MEDS: PANTOPRAZOLE SOD 40 MG DELAYED RELEASE TAB PO SCH (10:00)
[2016-07-27] MEDS: DOCUSATE SODIUM 50 MG/SENNA 8.6 MG TAB PO SCH (10:00)
[2016-07-27] MEDS: RIVAROXABAN 10 MG TAB PO SCH (10:00)
[2016-07-27 10:11] LABS: HEMOGLOBIN A1a 2.4 %; HEMOGLOBIN A1b 0.6 %; HEMOGLOBIN Ao 87.1 %; HEMOGLOBIN F 0.7 %; HEMOGLOBIN LA1C 1.6 %; HEMOGLOBIN P3 3.1 %
--- NOTE | 2016-07-27 10:41 | HHI.PYPN ---
Subjective Remarks Patient was seen and discussed with the medical staff physician. Patient reported that he has been feeling little bit better. He denied any suicidal ideation intentions or plan. Denied any acute pain at this time. No behavior or management problem reported. Compliant in taking medication continue with the same treatment. Review of Systems Except as stated in HPI: all other systems reviewed are Neg Psychiatric: COMPLAINS OF: Mood changes, Depression Objective Alert: Yes [place]: Person, Place Mood: Calm, Depressed Affect: Restricted Memory Intact: Recent (mildly impaired) Hallucinations: Other (patient denied any active auditory or visual hallucinations) Delusions: No Delusion Type: Other (no obvious delusional material voiced) Suicidal: Ideation (patient denied any suicidal ideation or plan at this time) Homicidal: Ideation (denies any homicidal ideation or plan) Insight/Judgement Fair Vitals/IOs Vital Signs Date Time Temp Pulse Resp B/P Pulse Ox O2 Delivery O2 Flow Rate FiO2 07/27/16 05:14 97.3 88 14 108/67 98 Intake and Output 07/26/16 07/26/16 07/27/16 08:00 16:00 00:00 Intake Total 480 ml 720 ml 790 ml Output Total 750 ml 1350 ml 525 ml Balance -270 ml -630 ml 265 ml Assessment & Plan Problem List: (1) Schizoaffective disorder, bipolar type ICD Code: F25.0 Assessment & Plan Estimated LOS: days Justification for Cont. Inpt. Risk of decompensation and risk factor for harming himself and monitoring of the medication Request HC Surrog/Guard Advoc?: No Konrad Jacinto MD Jul 27, 2016 10:41
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
--- NOTE | 2016-07-27 17:03 | RADRPT ---
EXAM DATE/TIME: 07/27/2016 16:15 [facility] COMPARISON: FEMUR RIGHT (AP & LAT/2VWS), July 12, 2016, 9:49. INDICATIONS : Evaluate Right Femur for injury post fall. MEDICAL HISTORY : Unobtainable. SURGICAL HISTORY : Unobtainable. ENCOUNTER: Initial ACUITY: 1 day PAIN SCORE: Non-responsive. LOCATION: Right femur. FINDINGS: Four films have been obtained. There is a long gregg seen through the femur successfully reducing the mid to distal femoral shaft fracture. This appears well aligned. There is also a sliding screw thro ugh the femoral neck for the intertrochanteric femoral neck fracture. The hip joint is normally alig jamarcus. There is fracturing of the patella. There is fracturing of the lesser and greater trochanters. CONCLUSION: Internal fixation as described above. Moses Miramontes MD on July 27, 2016 at 16:55 Board Certified Radiologist. This report was verified electronically.
--- NOTE | 2016-07-27 17:13 | RADRPT ---
EXAM DATE/TIME: 07/27/2016 16:11 [facility] COMPARISON: KNEE LEFT LTD (1 OR 2VWS), July 12, 2016, 2:46. KNEE LEFT LTD (1 OR 2VWS), July 12, 2016, 6:01 . INDICATIONS : Evaluate Left Knee for injury post fall. MEDICAL HISTORY : Unobtainable. SURGICAL HISTORY : Unobtainable. ENCOUNTER: Initial ACUITY: 1 day PAIN SCORE: Non-responsive. LOCATION: Left knee. FINDINGS: Three screws are seen through the patella successfully reducing the comminuted patellar fracture. Th ere is also a nondisplaced fracture seen at the proximal fibula. These findings were present previou sly. No new or acute abnormality is seen. CONCLUSION: Status post open reduction of a comminuted patellar fracture. Again noted is a nondisplaced proximal fibular fracture. Moses Miramontes MD on July 27, 2016 at 17:08 Board Certified Radiologist. This report was verified electronically.
[2016-07-27 20:03] VITALS: BP 124/83; PULSE 97; RESP 22; TEMP 98.1; O2SAT 98
[2016-07-27] MEDS: LORazepam 1 MG TAB PO PRN (23:17)
[2016-07-27] MEDS: ACETAMINOPHEN 325 MG TAB PO PRN (23:18)
[2016-07-28] MEDS: LEVOTHYROXINE SODIUM 150 MCG TAB PO SCH (06:00)
[2016-07-28] MEDS: LORazepam 1 MG TAB PO PRN ×2 (06:12→15:50)
[2016-07-28] MEDS: ACETAMINOPHEN 325 MG TAB PO PRN (06:12)
[2016-07-28 06:21] VITALS: BP 122/80; PULSE 93; RESP 18; TEMP 97.9; O2SAT 98
[2016-07-28 08:00] VITALS: BP 122/80; PULSE 93; RESP 18; TEMP 98.3; O2SAT 98
[2016-07-28] MEDS: DOCUSATE SODIUM 50 MG/SENNA 8.6 MG TAB PO SCH (08:27)
[2016-07-28] MEDS: PANTOPRAZOLE SOD 40 MG DELAYED RELEASE TAB PO SCH (08:27)
[2016-07-28] MEDS: ZIPRASIDONE HCL 40 MG CAP PO SCH ×2 (08:28→21:16)
[2016-07-28] MEDS: BENZOCAINE 6 MG/MENTHOL 10 MG LOZENGE BUCCAL PRN (08:28)
[2016-07-28] MEDS: RIVAROXABAN 10 MG TAB PO SCH (09:00)
--- NOTE | 2016-07-28 11:13 | HHI.PYPN ---
Subjective Remarks Patient was seen today for reevaluation and also for treatment been with social service assistant Helena and Nurse Dominic, patient reports that he feels better, his objectively improved, patient says that he is looking at moving forward, has a desire to continue his psychiatric medication, follow psychiatric recommendations and get much better. He has a plan that was his discharge from the hospital continues focus and continue having his mind busy, his plan is to do some voluntary work in a house. Patient denies suicidal and homicidal ideation, he denies visual and auditory hallucinations, he denies paranoia, ideas of reference, thought control and delusions. Patient has been medication compliant, no significant side effects reported. Review of Systems Other No significant changes since 07/26/2016 Objective Alert: Yes [place]: Person, Place, Date, Situation Mood: Calm, Depressed Affect: Restricted Memory Intact: Recent (mildly impaired) Hallucinations: Other (patient denied any active auditory or visual hallucinations) Delusions: No Delusion Type: Other (no obvious delusional material voiced) Suicidal: Ideation (patient denied any suicidal ideation or plan at this time) Homicidal: Ideation (denies any homicidal ideation or plan) Insight/Judgement Improved Vitals/IOs Vital Signs Date Time Temp Pulse Resp B/P Pulse Ox O2 Delivery O2 Flow Rate FiO2 07/28/16 06:21 97.9 93 18 122/80 98 Intake and Output 07/27/16 07/27/16 07/28/16 08:00 16:00 00:00 Intake Total 1080 ml 100 ml Output Total 1000 ml 625 ml 800 ml Balance -1000 ml 455 ml -700 ml Assessment & Plan Problem List: (1) Schizoaffective disorder, bipolar type Assessment & Plan: Patient has been showing very good response and adherence to psychotropics and psychotherapy. We will order lithium levels, we'll restart lithium 600 twice a day. ICD Code: F25.0 Assessment & Plan Estimated LOS: days Justification for Cont. Inpt. Patient has an increased risk to self inflict danger to himself in a less structured environment, he needs more stabilization. Request HC Surrog/Guard Advoc?: No Dariel Sanford MD Jul 28, 2016 11:13
[2016-07-28] MEDS: LITHIUM CARBONATE 300 MG CAP PO SCH ×2 (13:36→21:16)
--- NOTE | 2016-07-28 14:21 | HHI.PR ---
Subjective Remarks Follow up visit hypothyroidism, multiple fx trauma, status post left elbow ex- fix. Patient seen today. Flat affect. States his doing well. As per RN, patient with increasing pain during mobilization, and wound care change. Denies SOB/ dyspnea. Denies chest pain, palpitations, headaches, dizziness. Denies fevers, chills, n/v/d. Objective Vitals Vital Signs Date Time Temp Pulse Resp B/P Pulse Ox O2 Delivery O2 Flow Rate FiO2 07/28/16 06:21 97.9 93 18 122/80 98 07/27/16 20:03 98.1 97 22 124/83 98 I/O 07/27/16 07/27/16 07/27/16 07/28/16 07/28/16 07/28/16 07:00 15:00 23:00 07:00 15:00 23:00 Intake Total 1080 ml 340 ml Output Total 1000 ml 625 ml 1650 ml Balance -1000 ml 455 ml -1310 ml Intake Oral 1080 ml 340 ml Output Urine Total 1000 ml 625 ml 1650 ml # Bowel Movements 0 Result Diagram: 07/26/16 0752 Objective Remarks GENERAL: This is a well-nourished, well-developed patient, in no apparent distress. SKIN: No rashes, ecchymoses or lesions. Cool and dry. HEAD: Atraumatic. Normocephalic. No temporal or scalp tenderness. EYES: Pupils equal round and reactive. Extraocular motions intact. No scleral icterus. No injection or drainage. ENT: Nose without bleeding. Throat without erythema. Uvula midline. Airway patent. NECK: Trachea midline. No JVD or lymphadenopathy. Supple, nontender, no meningeal signs. CARDIOVASCULAR: Regular rate and rhythm without murmurs, gallops, or rubs. RESPIRATORY: Diminished bases. No wheezes, rales, or rhonchi. GASTROINTESTINAL: Abdomen soft, non-tender, nondistended. No hepato-splenomegaly , or palpable masses. No guarding. : Burrows in place draining clear yellow urine. MUSCULOSKELETAL: Extremities without clubbing, cyanosis, bilateral lower extremity trace edema. Able to wiggle bilateral toes and move bilateral foot weekly. Left upper extremity with ex-fix. NEUROLOGICAL: Awake and alert. Flat affect. Oriented to self, and place. Motor and sensory grossly within normal limits. Normal speech. A/P Problem List: (1) Schizoaffective disorder, bipolar type ICD Code: F25.0 Status: Acute (2) Femur fracture, right ICD Code: S72.91XA Status: Acute (3) Elbow fracture ICD Code: S42.409A Status: Acute (4) Patella fracture ICD Code: S82.009A Status: Acute (5) T12 vertebral fracture ICD Code: S22.089A Status: Acute (6) Hypothyroidism ICD Code: E03.9 Status: Chronic Assessment and Plan This a 50-year-old gentleman with a past medical history which includes hypothyroidism, bipolar and schizophrenia. Patient is status post trauma alert on 07/12/2016 secondary to suicide attempt patient jumped off a bridge onto railroad tracks. Patient sustained multiple fractures has been taken to the OR initially was in intensive care unit and intubated for airway protection as well as pain management. Patient was extubated 07/13/2016. Bipolar, schizophrenia - managed by psychiatry team Multiple surgical interventions including: Patient received 4 units PRBCs, 1 FFP and platelets while in the OR. s/p right femur IMN s/p exfix left elbow s/p ORIF left patella right patella fx nonop pelvic fxs Latest surgical intervention- Status post Left elbow ex fix, redo Per Ortho, nonoperative management of right patella and pelvic fractures. Patient will maintain nonweightbearing on left upper extremity/bilateral lower extremity with daily dressing changes to the right femur, left knee, pinned care twice a day of left elbow. Patient will also continue to follow-up with Dr. Gentile if discharged home. - Xarelto 10 mg daily - Physical therapy/occupational therapy - Physical therapy recommends specialty bed auto rolling. Pressure relief. - Air mattress bed with altered rolling - Pain management Kingfisher's 7.5/325 mg Hypothyroidism - continue levothyroxine 150mg daily DVT Prop Xarelto GI Prop Protonix Written by Sera Jameson, acting as scribe for Dr. Troy on 07/28/16 at 12:21. The documentation accurately reflects the work performed [id number] by Donaldo mayo D.O on 07/28/16 at 12:21 Sera Brandon Jul 28, 2016 14:21 Virgilio Troy DO Jul 28, 2016 19:15
[2016-07-28] MEDS: ACETAMINOPHEN/HYDROcodone 325 MG/7.5 MG TAB PO PRN (16:04)
[2016-07-28 21:54] VITALS: BP 135/74; PULSE 93; RESP 16; TEMP 98.3; O2SAT 98
[2016-07-29] MEDS: LORazepam 1 MG TAB PO PRN ×2 (04:27→21:48)
[2016-07-29] MEDS: ACETAMINOPHEN/HYDROcodone 325 MG/7.5 MG TAB PO PRN ×3 (04:28→21:43)
[2016-07-29 04:50] VITALS: BP 128/76; PULSE 93; RESP 15; TEMP 98; O2SAT 98
[2016-07-29] MEDS: LEVOTHYROXINE SODIUM 150 MCG TAB PO SCH (05:49)
[2016-07-29] MEDS: DOCUSATE SODIUM 50 MG/SENNA 8.6 MG TAB PO SCH (08:20)
[2016-07-29] MEDS: RIVAROXABAN 10 MG TAB PO SCH (08:21)
[2016-07-29] MEDS: LITHIUM CARBONATE 300 MG CAP PO SCH ×2 (08:21→21:44)
[2016-07-29] MEDS: ZIPRASIDONE HCL 40 MG CAP PO SCH ×2 (08:21→21:43)
[2016-07-29] MEDS: PANTOPRAZOLE SOD 40 MG DELAYED RELEASE TAB PO SCH (08:21)
--- NOTE | 2016-07-29 12:09 | RADRPT ---
EXAM DATE/TIME: 07/29/2016 10:14 [facility] COMPARISON: KNEE LEFT LTD (1 OR 2VWS), July 27, 2016, 16:11. INDICATIONS : Post op left distal femur fracture. MEDICAL HISTORY : None. SURGICAL HISTORY : None. ENCOUNTER: Subsequent ACUITY: 3 weeks PAIN SCORE: 1/10 LOCATION: Left knee FINDINGS: AP and lateral views of the left knee demonstrate a stable appearance of the nondisplaced proximal fi bular fracture. The patella fracture has undergone prior ORIF and contains 3 partially threaded cannu lated screws. Fracture line remains visualized superiorly. No significant joint effusion is visualize d. There is slight articular step off on the posterior cortex of the superior pole the patella simila r to the prior study. No soft tissue abnormality is seen. CONCLUSION: 1. Stable examination of the left knee. The nondisplaced left proximal fibular fracture has a stable appearance. 2. The patella fracture has undergone prior ORIF. There is stable articular step off at the superior pole posteriorly. Moses Buenrostro MD on July 29, 2016 at 12:06 Board Certified Radiologist. This report was verified electronically.
--- NOTE | 2016-07-29 12:12 | RADRPT ---
EXAM DATE/TIME: 07/29/2016 10:19 [facility] COMPARISON: FEMUR RIGHT (AP & LAT/2VWS), July 27, 2016, 16:15. INDICATIONS : Post op right femur fracture. MEDICAL HISTORY : None. SURGICAL HISTORY : None. ENCOUNTER: Subsequent ACUITY: 3 weeks PAIN SCORE: 1/10 LOCATION: Right femur FINDINGS: 5 views of the right femur demonstrate an antegrade intramedullary gregg within the femur which julia es the mid to distal diaphyseal fracture of the femur. There are 2 distal interlocking screws and a p roximal femoral head neck screw. The intertrochanteric fracture remains visualized. There is a commin uted patella fracture. Skin nguyen remain present laterally. Burrows catheter is present. Vasectomy cl ips are visualized. CONCLUSION: Stable examination of the right femur in this patient post recent right femur ORIF for treatment of a intertrochanteric fracture in distal femoral diaphysis fracture. There is also a comminuted patella fracture present. Moses Buenrostro MD on July 29, 2016 at 12:08 Board Certified Radiologist. This report was verified electronically.
--- NOTE | 2016-07-29 14:09 | HHI.PYPN ---
Subjective Remarks Patient was seen today for reevaluation alone with social services counselor Helena and Nurse in charge Dominic, patient was calm and cooperative, he explains that he has been doing much better, he says that his is struggling hard to improve and be discharged back to his house, he says that he has a much better mood, denies depression, denies anxiety, denies trevor, denies perceptual disturbances. Patient denies ideas of reference, denies thought control, denies suicidal or homicidal ideation, denies visual and auditory hallucinations. Patient says that he is motivated to continue his psychotropics and outpatient psychiatric follow-up, he says that he understands the importance of this. However, thought blocking, some internal preoccupation is still seen. Patient is fully oriented 3, no gross cognitive impairment observed. A letter from his sister, Cristy Chou, was received today in which she remarks that the patient's younger sister was diagnosed with schizoaffective disorder at the age of 12, she had a refractory psychosis consistent in ideas of reference and thought control, "TV talking to her and controlling her mind and also people reading her mind"which at the end could just be stabilize with Clozaril and ECT. Review of Systems Other No somatic complaints Objective Alert: Yes [place]: Person, Place, Date, Situation Mood: Calm, Depressed Affect: Restricted Memory Intact: Recent (mildly impaired) Hallucinations: Other (patient denied any active auditory or visual hallucinations) Delusions: No Delusion Type: Other (no obvious delusional material voiced) Suicidal: Ideation (patient denied any suicidal ideation or plan at this time) Homicidal: Ideation (denies any homicidal ideation or plan) Insight/Judgement Improve Vitals/IOs Vital Signs Date Time Temp Pulse Resp B/P Pulse Ox O2 Delivery O2 Flow Rate FiO2 07/29/16 04:50 98.0 93 15 128/76 98 Intake and Output 07/28/16 07/28/16 07/29/16 08:00 16:00 00:00 Intake Total 240 ml 560 ml Output Total 850 ml 1450 ml Balance -610 ml -890 ml Assessment & Plan Problem List: (1) Schizoaffective disorder, bipolar type Assessment & Plan: Patient is to continue his psychiatric hospitalization for stabilization of his psychotic symptoms, patient is still presenting internal preoccupation, blocking thought, flat affect. Will continue current psychotropics, will measure lithium levels tomorrow, I will start to consider as second a second antipsychotic if patient doesn't show more improvement in the next days. ICD Code: F25.0 Assessment & Plan Estimated LOS: days Justification for Cont. Inpt. Patient is to continue his psychiatric hospitalization for stabilization and medication adjustment Request HC Surrog/Guard Advoc?: No Dariel Sanford MD Jul 29, 2016 14:09
--- NOTE | 2016-07-29 14:28 | RADRPT ---
EXAM DATE/TIME: 07/29/2016 10:37 [facility] COMPARISON: ELBOW LEFT LIMITED (AP & LAT), July 15, 2016, 16:43. INDICATIONS : Post op elbow fracture. MEDICAL HISTORY : None. SURGICAL HISTORY : None. ENCOUNTER: Initial ACUITY: 3 weeks PAIN SCORE: 1/10 LOCATION: Left elbow FINDINGS: FINDINGS: There are postsurgical changes with operative reduction and internal fixation of the previously seen fracture. The alignment is anatomic. Radial head prosthesis is present. External fixator is present. CONCLUSION: 1. Postsurgical changes as above. Robson Ghotra MD on July 29, 2016 at 14:21 Board Certified Radiologist. This report was verified electronically.
--- NOTE | 2016-07-29 17:53 | HHI.PR ---
Subjective Remarks Follow up visit hypothyroidism, multiple fx trauma, status post left elbow ex- fix. Patient seen today. Flat affect. States his doing well. Denies SOB/ dyspnea. Denies chest pain, palpitations, headaches, dizziness. Denies fevers, chills, n/v/d. Patient's reports patient is having constipation. Patient reports last BM , "couple weeks ago." Reports positive flatus denies abdominal pain Objective Vitals Vital Signs Date Time Temp Pulse Resp B/P Pulse Ox O2 Delivery O2 Flow Rate FiO2 07/29/16 04:50 98.0 93 15 128/76 98 07/28/16 21:54 98.3 93 16 135/74 98 I/O 07/28/16 07/28/16 07/28/16 07/29/16 07/29/16 07/29/16 07:00 15:00 23:00 07:00 15:00 23:00 Intake Total 340 ml 360 ml 440 ml 240 ml 240 ml Output Total 1650 ml 1450 ml 100 ml 1650 ml Balance -1310 ml -1090 ml 340 ml -1410 ml 240 ml Intake Oral 340 ml 360 ml 440 ml 240 ml 240 ml Output Urine Total 1650 ml 1450 ml 100 ml 1650 ml Result Diagram: 07/26/16 0752 Imaging Last Impressions Knee X-Ray 07/29/16 0000 Signed Impressions: Service Date/Time: Friday, July 29, 2016 10:14 - CONCLUSION: 1. Stable examination of the left knee. The nondisplaced left proximal fibular fracture has a stable appearance. 2. The patella fracture has undergone prior ORIF. There is stable articular step off at the superior pole posteriorly. Moses Buenrostro MD Femur X-Ray 07/29/16 0000 Signed Impressions: Service Date/Time: Friday, July 29, 2016 10:19 - CONCLUSION: Stable examination of the right femur in this patient post recent right femur ORIF for treatment of a intertrochanteric fracture in distal femoral diaphysis fracture. There is also a comminuted patella fracture present. Moses Buenrostro MD Elbow X-Ray 07/29/16 0000 Signed Impressions: Service Date/Time: Friday, July 29, 2016 10:37 - CONCLUSION: 1. Postsurgical changes as above. Robson Ghotra MD Objective Remarks GENERAL: This is a well-nourished, well-developed patient, in no apparent distress. SKIN: No rashes, ecchymoses or lesions. Cool and dry. HEAD: Atraumatic. Normocephalic. No temporal or scalp tenderness. EYES: Extraocular motions intact. No scleral icterus. No injection or drainage. ENT: Nose without bleeding. Throat without erythema. Uvula midline. Airway patent. NECK: Trachea midline. No JVD or lymphadenopathy. Supple, nontender, no meningeal signs. CARDIOVASCULAR: Regular rate and rhythm without murmurs, gallops, or rubs. RESPIRATORY: Diminished bases. No wheezes, rales, or rhonchi. GASTROINTESTINAL: Abdomen soft, non-tender, nondistended. Normoactive bowel sounds all 4 quadrants. No hepato-splenomegaly, or palpable masses. No guarding. : Burrows in place draining clear yellow urine. MUSCULOSKELETAL: Extremities without clubbing, cyanosis, bilateral lower extremity trace edema. Able to wiggle bilateral toes and move bilateral foot weekly. Left upper extremity with ex-fix. NEUROLOGICAL: Awake and alert. Flat affect. Oriented to self, and place. Motor and sensory grossly within normal limits. Normal speech. A/P Problem List: (1) Schizoaffective disorder, bipolar type ICD Code: F25.0 Status: Acute (2) Femur fracture, right ICD Code: S72.91XA Status: Acute (3) Elbow fracture ICD Code: S42.409A Status: Acute (4) Patella fracture ICD Code: S82.009A Status: Acute (5) T12 vertebral fracture ICD Code: S22.089A Status: Acute (6) Hypothyroidism ICD Code: E03.9 Status: Chronic Assessment and Plan This a 50-year-old gentleman with a past medical history which includes hypothyroidism, bipolar and schizophrenia. Patient is status post trauma alert on 07/12/2016 secondary to suicide attempt patient jumped off a bridge onto railroad tracks. Patient sustained multiple fractures has been taken to the OR initially was in intensive care unit and intubated for airway protection as well as pain management. Patient was extubated 07/13/2016. Bipolar, schizophrenia - managed by psychiatry team Multiple surgical interventions including: Patient received 4 units PRBCs, 1 FFP and platelets while in the OR. s/p right femur IMN s/p exfix left elbow s/p ORIF left patella right patella fx nonop pelvic fxs Latest surgical intervention- Status post Left elbow ex fix, redo Per Ortho, nonoperative management of right patella and pelvic fractures. Patient will maintain nonweightbearing on left upper extremity/bilateral lower extremity with daily dressing changes to the right femur, left knee, pinned care twice a day of left elbow. Patient will also continue to follow-up with Dr. Gentile if discharged home. - Xarelto 10 mg daily - Physical therapy/occupational therapy - Physical therapy recommends specialty bed auto rolling. Pressure relief. - Air mattress bed with altered rolling - Pain management Douglas's 7.5/325 mg Hypothyroidism - continue levothyroxine 150mg daily Constipation- KUB ordered and pending Colace twice a day Dulcolax suppository as needed DVT Prop Xarelto GI Prop Protonix Discussed with patient and at bedside Written by Isabella Luther, acting as scribe for Dr. Troy on 07/29/16 at 18 :28. The documentation accurately reflects the work performed [id number] by me on at 18:28. Isabella Luther Jul 29, 2016 17:53 Virgilio Troy DO Jul 29, 2016 22:35
[2016-07-29 18:00] VITALS: BP 124/72; PULSE 92; RESP 16; TEMP 98; O2SAT 98
[2016-07-29] MEDS ORDERED: BISACODYL 10 MG SUPP RECTAL PRN (18:00)
[2016-07-29] MEDS: MAGNESIUM HYDROXIDE SUSP 30 ML CUP PO PRN (18:29)
--- NOTE | 2016-07-29 20:27 | RADRPT ---
EXAM DATE/TIME: 07/29/2016 18:13 [facility] COMPARISON: No previous studies available for comparison. INDICATIONS : Constipation. MEDICAL HISTORY : None. SURGICAL HISTORY : None. ENCOUNTER: Initial ACUITY: 2 weeks PAIN SCORE: 7/10 LOCATION: Bilateral abdomen FINDINGS: Supine view of the abdomen was performed. A moderate amount of stool throughout a normal caliber colo n. The abdominal bowel gas pattern is normal. No abnormal masses, calcifications, or organomegaly is seen. The osseous structures are unremarkable. Partial visualization of a right femoral neck screw and intramedullary gregg. CONCLUSION: Moderate stool burden suggesting constipation. No dilated loops of bowel. Bruno Brito Jr., MD on July 29, 2016 at 20:25 Board Certified Radiologist. This report was verified electronically.
[2016-07-29] MEDS: DOCUSATE SODIUM 100 MG CAP PO SCH (21:43)
[2016-07-30 05:46] VITALS: BP 132/84; PULSE 90; RESP 16; TEMP 98; O2SAT 97
[2016-07-30] MEDS: LEVOTHYROXINE SODIUM 150 MCG TAB PO SCH (06:24)
[2016-07-30] MEDS ORDERED: LACTULOSE SYRUP 20 GM/30 ML CUP PO ONE (08:00)
[2016-07-30 08:45] LABS: BASOPHIL # 0.2 TH/MM3 (0-0.2); BASOPHIL % 1.8 % (0.0-2.0); EOSINOPHIL # 0.2 TH/MM3 (0-0.4); EOSINOPHIL % 2.4 % (0.0-4.0); HEMATOCRIT 33.2 % (39.0-51.0); HEMO FLAGS DIFF FINAL; LYMPH % 7.8 % (9.0-44.0); LYMPHOCYTE # 0.7 TH/MM3 (1.0-4.8); MEAN CELL VOLUME 88.9 FL (80.0-100.0); MEAN CORPUSCULAR HEMOGLOBIN 29.8 PG (27.0-34.0); MEAN CORPUSCULAR HGB CONC 33.6 % (32.0-36.0); MONO % 7.5 % (0.0-8.0); NEUT % 80.5 % (16.0-70.0); PLATELET COUNT 381 TH/MM3 (150-450); RED BLOOD COUNT 3.73 MIL/MM3 (4.50-5.90); RED CELL DISTRIBUTION WIDTH 14.8 % (11.6-17.2); WHITE BLOOD COUNT 8.7 TH/MM3 (4.0-11.0)
[2016-07-30] MEDS: PANTOPRAZOLE SOD 40 MG DELAYED RELEASE TAB PO SCH (08:56)
[2016-07-30] MEDS: RIVAROXABAN 10 MG TAB PO SCH (08:56)
[2016-07-30] MEDS: ZIPRASIDONE HCL 40 MG CAP PO SCH ×2 (08:56→21:29)
[2016-07-30] MEDS: DOCUSATE SODIUM 100 MG CAP PO SCH ×2 (08:56→21:29)
[2016-07-30] MEDS: LITHIUM CARBONATE 300 MG CAP PO SCH ×2 (09:00→21:29)
[2016-07-30] MEDS: DOCUSATE SODIUM 50 MG/SENNA 8.6 MG TAB PO SCH (09:00)
[2016-07-30 09:09] LABS: BICARBONATE 27.3 MEQ/L (21.0-32.0); POTASSIUM 4.1 MEQ/L (3.5-5.1)
--- NOTE | 2016-07-30 14:07 | HHI.PYPN ---
Subjective Remarks Patient today continues to show improvement in his mood and thought processes, he reports good mood, patient is stays that he is thinking about his future and how his going to restart his life, he denies suicidal or homicidal ideation, he denies visual and auditory hallucinations, he does not appears to be psychotic, he is fully oriented 3, fully compliant with medications. Review of Systems Other No somatic complaints Objective Alert: Yes [place]: Person, Place, Date, Situation Mood: Calm, Depressed Affect: Restricted Memory Intact: Recent (mildly impaired) Hallucinations: Other (patient denied any active auditory or visual hallucinations) Delusions: No Delusion Type: Other (no obvious delusional material voiced) Suicidal: Ideation (patient denied any suicidal ideation or plan at this time) Homicidal: Ideation (denies any homicidal ideation or plan) Insight/Judgement Good Labs Test 07/30/16 08:03 White Blood Count 8.7 TH/MM3 Red Blood Count 3.73 MIL/MM3 Hemoglobin 11.1 GM/DL Hematocrit 33.2 % Mean Corpuscular Volume 88.9 FL Mean Corpuscular Hemoglobin 29.8 PG Mean Corpuscular Hemoglobin 33.6 % Concent Red Cell Distribution Width 14.8 % Platelet Count 381 TH/MM3 Mean Platelet Volume 8.7 FL Neutrophils (%) (Auto) 80.5 % Lymphocytes (%) (Auto) 7.8 % Monocytes (%) (Auto) 7.5 % Eosinophils (%) (Auto) 2.4 % Basophils (%) (Auto) 1.8 % Neutrophils # (Auto) 7.0 TH/MM3 Lymphocytes # (Auto) 0.7 TH/MM3 Monocytes # (Auto) 0.7 TH/MM3 Eosinophils # (Auto) 0.2 TH/MM3 Basophils # (Auto) 0.2 TH/MM3 CBC Comment DIFF FINAL Differential Comment Sodium Level 138 MEQ/L Potassium Level 4.1 MEQ/L Chloride Level 102 MEQ/L Carbon Dioxide Level 27.3 MEQ/L Anion Gap 9 MEQ/L Blood Urea Nitrogen 15 MG/DL Creatinine 0.79 MG/DL Estimat Glomerular Filtration 108 ML/MIN Rate Random Glucose 93 MG/DL Calcium Level 9.1 MG/DL Vitals/IOs Vital Signs Date Time Temp Pulse Resp B/P Pulse Ox O2 Delivery O2 Flow Rate FiO2 07/30/16 05:46 98.0 90 16 132/84 97 Intake and Output 07/29/16 07/29/16 07/30/16 08:00 16:00 00:00 Intake Total 240 ml 240 ml 960 ml Output Total 100 ml 1650 ml Balance 140 ml -1410 ml 960 ml Assessment & Plan Problem List: (1) Schizoaffective disorder, bipolar type Assessment & Plan: Patient has been showing significant improvement and an appropriate response to psychotropic, we'll continue the process of hospitalization to monitor her psychosis and to readjust medication if necessary. ICD Code: F25.0 Assessment & Plan Estimated LOS: days Justification for Cont. Inpt. Is highly probable that the patient will decompensate out of and a structure environment. Request HC Surrog/Guard Advoc?: No Dariel Sanford MD Jul 30, 2016 14:07
--- NOTE | 2016-07-30 15:03 | HHI.PR ---
Subjective Remarks Follow up visit hypothyroidism, multiple fx trauma, status post left elbow ex- fix. Patient seen today. Flat affect. States his doing well. Denies SOB/ dyspnea. Denies chest pain, palpitations, headaches, dizziness. Denies fevers, chills, n/v/d. Patient reports still no bowel movement given lactulose this morning. Patient reports last BM, "couple weeks ago." Reports positive flatus denies abdominal pain Objective Vitals Vital Signs Date Time Temp Pulse Resp B/P Pulse Ox O2 Delivery O2 Flow Rate FiO2 07/30/16 05:46 98.0 90 16 132/84 97 07/29/16 18:00 98.0 92 16 124/72 98 I/O 07/29/16 07/29/16 07/29/16 07/30/16 07/30/16 07/30/16 07:00 15:00 23:00 07:00 15:00 23:00 Intake Total 440 ml 240 ml 480 ml 720 ml 120 ml Output Total 100 ml 1650 ml 950 ml Balance 340 ml -1410 ml 480 ml -230 ml 120 ml Intake Oral 440 ml 240 ml 480 ml 720 ml 120 ml Output Urine Total 100 ml 1650 ml 950 ml Result Diagram: 07/30/16 0803 07/30/16 0803 Imaging Last Impressions Knee X-Ray 07/29/16 0000 Signed Impressions: Service Date/Time: Friday, July 29, 2016 10:14 - CONCLUSION: 1. Stable examination of the left knee. The nondisplaced left proximal fibular fracture has a stable appearance. 2. The patella fracture has undergone prior ORIF. There is stable articular step off at the superior pole posteriorly. Moses Buenrostro MD Femur X-Ray 07/29/16 0000 Signed Impressions: Service Date/Time: Friday, July 29, 2016 10:19 - CONCLUSION: Stable examination of the right femur in this patient post recent right femur ORIF for treatment of a intertrochanteric fracture in distal femoral diaphysis fracture. There is also a comminuted patella fracture present. Moses Buenrostro MD Elbow X-Ray 07/29/16 0000 Signed Impressions: Service Date/Time: Friday, July 29, 2016 10:37 - CONCLUSION: 1. Postsurgical changes as above. Robson Ghotra MD Abdomen X-Ray 07/29/16 0000 Signed Impressions: Service Date/Time: Friday, July 29, 2016 18:13 - CONCLUSION: Moderate stool burden suggesting constipation. No dilated loops of bowel. Bruno Brito Jr., MD Objective Remarks GENERAL: This is a well-nourished, well-developed patient, in no apparent distress. SKIN: No rashes, ecchymoses or lesions. Cool and dry. HEAD: Atraumatic. Normocephalic. No temporal or scalp tenderness. EYES: Extraocular motions intact. No scleral icterus. No injection or drainage. ENT: Nose without bleeding. Throat without erythema. Uvula midline. Airway patent. NECK: Trachea midline. No JVD or lymphadenopathy. Supple, nontender, no meningeal signs. CARDIOVASCULAR: Regular rate and rhythm without murmurs, gallops, or rubs. RESPIRATORY: Diminished bases. No wheezes, rales, or rhonchi. GASTROINTESTINAL: Abdomen soft, non-tender, nondistended. Normoactive bowel sounds all 4 quadrants. No hepato-splenomegaly, or palpable masses. No guarding. : Burrows in place draining clear yellow urine. MUSCULOSKELETAL: Extremities without clubbing, cyanosis, bilateral lower extremity trace edema. Able to wiggle bilateral toes and move bilateral foot weekly. Left upper extremity with ex-fix. NEUROLOGICAL: Awake and alert. Flat affect. Oriented to self, and place. Motor and sensory grossly within normal limits. Normal speech. A/P Problem List: (1) Schizoaffective disorder, bipolar type ICD Code: F25.0 Status: Acute (2) Femur fracture, right ICD Code: S72.91XA Status: Acute (3) Elbow fracture ICD Code: S42.409A Status: Acute (4) Patella fracture ICD Code: S82.009A Status: Acute (5) T12 vertebral fracture ICD Code: S22.089A Status: Acute (6) Hypothyroidism ICD Code: E03.9 Status: Chronic Assessment and Plan This a 50-year-old gentleman with a past medical history which includes hypothyroidism, bipolar and schizophrenia. Patient is status post trauma alert on 07/12/2016 secondary to suicide attempt patient jumped off a bridge [place] railroad tracks. Patient sustained multiple fractures has been taken to the OR initially was in intensive care unit and intubated for airway protection as well as pain management. Patient was extubated 07/13/2016. Bipolar, schizophrenia - managed by psychiatry team Multiple surgical interventions including: Patient received 4 units PRBCs, 1 FFP and platelets while in the OR. s/p right femur IMN s/p exfix left elbow s/p ORIF left patella right patella fx nonop pelvic fxs Latest surgical intervention- Status post Left elbow ex fix, redo Per Ortho, nonoperative management of right patella and pelvic fractures. Patient will maintain nonweightbearing on left upper extremity/bilateral lower extremity with daily dressing changes to the right femur, left knee, pinned care twice a day of left elbow. Patient will also continue to follow-up with Dr. Gentile if discharged home. - Xarelto 10 mg daily - Physical therapy/occupational therapy - Physical therapy recommends specialty bed auto rolling. Pressure relief. - Air mattress bed with altered rolling - Pain management [place]'s 7.5/325 mg Hypothyroidism - continue levothyroxine 150mg daily Constipation- KUB reviewed my myself and Dr. Troy moderate amount of stool consistent with constipation Colace twice a day Dulcolax suppository as needed Lactulose times one if no result from lactulose and we'll give mag citrate tomorrow DVT Prop Xarelto GI Prop Protonix Discussed with patient, RN Written by Isabella Luther, acting as scribe for Dr. Troy on 07/30/16 at 12 :02. The documentation accurately reflects the work performed [id number] by me on at 12:02 Isabella Luther Jul 30, 2016 15:02 Virgilio Troy DO Jul 30, 2016 19:14
[2016-07-30] MEDS ORDERED: MAGNESIUM CITRATE SOLN 300 ML BTL PO ONE (16:00)
[2016-07-30 19:26] VITALS: BP 119/74; PULSE 98; RESP 16; TEMP 98.3; O2SAT 98
[2016-07-31] MEDS: LEVOTHYROXINE SODIUM 150 MCG TAB PO SCH (06:04)
[2016-07-31 06:19] VITALS: BP 114/69; PULSE 105; RESP 18; TEMP 98.2; O2SAT 96
[2016-07-31] MEDS: ZIPRASIDONE HCL 40 MG CAP PO SCH ×2 (09:44→20:10)
[2016-07-31] MEDS: DOCUSATE SODIUM 50 MG/SENNA 8.6 MG TAB PO SCH (09:44)
[2016-07-31] MEDS: RIVAROXABAN 10 MG TAB PO SCH (09:44)
[2016-07-31] MEDS: DOCUSATE SODIUM 100 MG CAP PO SCH ×2 (09:44→20:10)
[2016-07-31] MEDS: PANTOPRAZOLE SOD 40 MG DELAYED RELEASE TAB PO SCH (09:44)
[2016-07-31] MEDS: LITHIUM CARBONATE 300 MG CAP PO SCH ×2 (09:45→20:10)
[2016-07-31] MEDS: MAGNESIUM HYDROXIDE SUSP 30 ML CUP PO PRN (13:14)
[2016-07-31] MEDS ORDERED: ARIPiprazole 5 MG TAB PO SCH (14:00)
--- NOTE | 2016-07-31 14:10 | HHI.PYPN ---
Subjective Remarks She was seen for evaluation today, patient states that he has been feeling down , especially at night he is having a very hard time sleeping due to racing thoughts. Patient states that "I feel as if I were no part of the card game" also states "everything is conspiring against me". He says that today's cloudiness is a sign of how bad he is. He denies ideas of reference, denies visual and auditory hallucinations, denies paranoia, the patient seems to be internally preoccupied, guarded, with a marked blocking thought, speech latency and flat affect. Review of Systems Other No somatic complaints Objective Alert: Yes [place]: Person, Place, Date, Situation Mood: Depressed Affect: Flat Memory Intact: Recent (mildly impaired) Hallucinations: Other (patient denied any active auditory or visual hallucinations) Delusions: No Delusion Type: Other (no obvious delusional material voiced) Suicidal: Ideation (patient denied any suicidal ideation or plan at this time) Homicidal: Ideation (denies any homicidal ideation or plan) Insight/Judgement Poor Labs Test 07/31/16 06:56 [place] Level 0.8 MEQ/L Vitals/IOs Vital Signs Date Time Temp Pulse Resp B/P Pulse Ox O2 Delivery O2 Flow Rate FiO2 07/31/16 06:19 98.2 105 18 114/69 96 Intake and Output 07/30/16 07/30/16 07/31/16 08:00 16:00 00:00 Intake Total 240 ml 120 ml 840 ml Output Total 950 ml 1350 ml 1100 ml Balance -710 ml -1230 ml -260 ml Assessment & Plan Problem List: (1) Schizoaffective disorder, bipolar type Assessment & Plan: Today patient seems to be more internally preoccupied and guarded than just. He has a marked though blocking and is speech latency and his affect is flat. We will start Seroquel 50 mg at bedtime to help with psychosis and to help with sleep. ICD Code: F25.0 Assessment & Plan Estimated LOS: days Justification for Cont. Inpt. The patient most likely will decompensate out of the psychiatric unit, he is still need psychiatric stabilization of his psychosis. Request HC Surrog/Guard Advoc?: No Dariel Sanford MD Jul 31, 2016 14:09
--- NOTE | 2016-07-31 14:18 | HHI.PR ---
Subjective Remarks Follow up visit hypothyroidism, multiple fx trauma, status post left elbow ex- fix. Patient seen today. Flat affect. States his doing well. Denies SOB/ dyspnea. Denies chest pain, palpitations, headaches, dizziness. Denies fevers, chills, n/v/d. Patient reports still no bowel movement given lactulose, Milk of magnesia and colace over the last few days with no result. Patient reports last BM, "couple weeks ago." Reports positive flatus denies abdominal pain. Feels as though he may have BM today. KUB reviewed and showed stool burden consistent with constipation. Objective Vitals Vital Signs Date Time Temp Pulse Resp B/P Pulse Ox O2 Delivery O2 Flow Rate FiO2 07/31/16 06:19 98.2 105 18 114/69 96 07/30/16 19:26 98.3 98 16 119/74 98 I/O 07/30/16 07/30/16 07/30/16 07/31/16 07/31/16 07/31/16 07:00 15:00 23:00 07:00 15:00 23:00 Intake Total 720 ml 120 ml 360 ml 720 ml 720 ml Output Total 950 ml 1350 ml 3200 ml Balance -230 ml -1230 ml 360 ml -2480 ml 720 ml Intake Oral 720 ml 120 ml 360 ml 720 ml 720 ml Output Urine Total 950 ml 1350 ml 3200 ml # Voids 3 Result Diagram: 07/30/16 0803 07/30/16 0803 Imaging Last Impressions Knee X-Ray 07/29/16 0000 Signed Impressions: Service Date/Time: Friday, July 29, 2016 10:14 - CONCLUSION: 1. Stable examination of the left knee. The nondisplaced left proximal fibular fracture has a stable appearance. 2. The patella fracture has undergone prior ORIF. There is stable articular step off at the superior pole posteriorly. Moses Buenrostro MD Femur X-Ray 07/29/16 0000 Signed Impressions: Service Date/Time: Friday, July 29, 2016 10:19 - CONCLUSION: Stable examination of the right femur in this patient post recent right femur ORIF for treatment of a intertrochanteric fracture in distal femoral diaphysis fracture. There is also a comminuted patella fracture present. Moses Buenrostro MD Elbow X-Ray 07/29/16 0000 Signed Impressions: Service Date/Time: Friday, July 29, 2016 10:37 - CONCLUSION: 1. Postsurgical changes as above. Robson Ghotra MD Abdomen X-Ray 07/29/16 0000 Signed Impressions: Service Date/Time: Friday, July 29, 2016 18:13 - CONCLUSION: Moderate stool burden suggesting constipation. No dilated loops of bowel. Bruno Brito Jr., MD Objective Remarks GENERAL: This is a well-nourished, well-developed patient, in no apparent distress. SKIN: No rashes, ecchymoses or lesions. Cool and dry. HEAD: Atraumatic. Normocephalic. No temporal or scalp tenderness. EYES: Extraocular motions intact. No scleral icterus. No injection or drainage. ENT: Nose without bleeding. Throat without erythema. Uvula midline. Airway patent. NECK: Trachea midline. No JVD or lymphadenopathy. Supple, nontender, no meningeal signs. CARDIOVASCULAR: Regular rate and rhythm without murmurs, gallops, or rubs. RESPIRATORY: Diminished bases. No wheezes, rales, or rhonchi. GASTROINTESTINAL: Abdomen soft, non-tender, nondistended. Normoactive bowel sounds all 4 quadrants. No hepato-splenomegaly, or palpable masses. No guarding. : Burrows in place draining clear yellow urine. MUSCULOSKELETAL: Extremities without clubbing, cyanosis, bilateral lower extremity trace edema. Able to wiggle bilateral toes and move bilateral foot weekly. Left upper extremity with ex-fix. NEUROLOGICAL: Awake and alert. Flat affect. Oriented to self, and place. Motor and sensory grossly within normal limits. Normal speech. A/P Problem List: (1) Schizoaffective disorder, bipolar type ICD Code: F25.0 Status: Acute (2) Femur fracture, right ICD Code: S72.91XA Status: Acute (3) Elbow fracture ICD Code: S42.409A Status: Acute (4) Patella fracture ICD Code: S82.009A Status: Acute (5) T12 vertebral fracture ICD Code: S22.089A Status: Acute (6) Hypothyroidism ICD Code: E03.9 Status: Chronic Assessment and Plan This a 50-year-old gentleman with a past medical history which includes hypothyroidism, bipolar and schizophrenia. Patient is status post trauma alert on 07/12/2016 secondary to suicide attempt patient jumped off a bridge onto railroad tracks. Patient sustained multiple fractures has been taken to the OR initially was in intensive care unit and intubated for airway protection as well as pain management. Patient was extubated 07/13/2016. Bipolar, schizophrenia - managed by psychiatry team Multiple surgical interventions including: Patient received 4 units PRBCs, 1 FFP and platelets while in the OR. s/p right femur IMN s/p exfix left elbow s/p ORIF left patella right patella fx nonop pelvic fxs Latest surgical intervention- Status post Left elbow ex fix, redo Per Ortho, nonoperative management of right patella and pelvic fractures. Patient will maintain nonweightbearing on left upper extremity/bilateral lower extremity with daily dressing changes to the right femur, left knee, pinned care twice a day of left elbow. Patient will also continue to follow-up with Dr. Gentile if discharged home. - Xarelto 10 mg daily - Physical therapy/occupational therapy - Physical therapy recommends specialty bed auto rolling. Pressure relief. - Air mattress bed with altered rolling - Pain management [place]'s 7.5/325 mg Hypothyroidism - continue levothyroxine 150mg daily Constipation- KUB reviewed my myself and Dr. Troy moderate amount of stool consistent with constipation Colace twice a day Dulcolax suppository as needed Lactulose times one if no result from lactulose or mag citrate - will continue to monitor DVT Prop Xarelto GI Prop Protonix Discussed with patient, RN and Isabella Calvo Jul 31, 2016 14:18
[2016-07-31 18:19] VITALS: BP 96/63; PULSE 89; RESP 18; TEMP 99; O2SAT 96
[2016-07-31] MEDS ORDERED: QUEtiapine FUMARATE 25 MG TAB PO SCH (21:00)
[2016-07-31 23:18] VITALS: BP 117/76; PULSE 93; RESP 15; TEMP 97.7; O2SAT 99
[2016-08-01 04:18] VITALS: BP 101/69; PULSE 100; RESP 16; TEMP 97.6; O2SAT 98
[2016-08-01] MEDS: LEVOTHYROXINE SODIUM 150 MCG TAB PO SCH (05:31)
[2016-08-01] MEDS: DOCUSATE SODIUM 50 MG/SENNA 8.6 MG TAB PO SCH (09:18)
[2016-08-01] MEDS: PANTOPRAZOLE SOD 40 MG DELAYED RELEASE TAB PO SCH (09:18)
[2016-08-01] MEDS: DOCUSATE SODIUM 100 MG CAP PO SCH ×2 (09:18→21:09)
[2016-08-01] MEDS: ZIPRASIDONE HCL 40 MG CAP PO SCH ×2 (09:19→21:09)
[2016-08-01] MEDS: LITHIUM CARBONATE 300 MG CAP PO SCH ×2 (09:19→21:09)
[2016-08-01] MEDS: RIVAROXABAN 10 MG TAB PO SCH (09:19)
--- NOTE | 2016-08-01 11:02 | HHI.PYPN ---
Subjective Remarks On reevaluation today patient seems to have a brighter affect, he is a smiling, he reports he is in a better mood today, he says that he has been thinking in the things that he has to do when his discharge from the hospital, he would like to engage in some kind of volunteerism probably in a hospital, he denies depression, he denies suicidal or homicidal ideation, patient reports that his sleep was better last night, he denies ideas of reference, paranoia, visual and auditory hallucinations, however some internal preoccupation and thought blocking still present. As per nurses patient has been more talkative, no agitation or aggressive behavior observed or reported. Review of Systems Other No somatic complaints Objective Alert: Yes [place]: Person, Place, Date, Situation Mood: Calm Affect: Restricted Memory Intact: Recent (mildly impaired) Hallucinations: Other (patient denied any active auditory or visual hallucinations) Delusions: No Delusion Type: Other (no obvious delusional material voiced) Suicidal: Ideation (patient denied any suicidal ideation or plan at this time) Homicidal: Ideation (denies any homicidal ideation or plan) Insight/Judgement Improve Vitals/IOs Vital Signs Date Time Temp Pulse Resp B/P Pulse Ox O2 Delivery O2 Flow Rate FiO2 08/01/16 04:18 97.6 100 16 101/69 98 Intake and Output 07/31/16 07/31/16 08/01/16 08:00 16:00 00:00 Intake Total 240 ml 720 ml 840 ml Output Total 2100 ml 1650 ml Balance -1860 ml -930 ml 840 ml Assessment & Plan Problem List: (1) Schizoaffective disorder, bipolar type Assessment & Plan: Patient has shown good response to psychotropics so far, he does not seem to be so paranoid, internally preoccupied, delusional, his affect is brighter and he is more communicative, however thought blocking and internal Patient is still persist. Will increase the Seroquel 100 mg hs. we'll start to coordinate discharge plan. ICD Code: F25.0 Assessment & Plan Estimated LOS: days Justification for Cont. Inpt. Patient is psychiatric admission for stabilization, he most probably will decompensate out of an structured environment,. Request HC Surrog/Guard Advoc?: Dariel Newsome MD Aug 01, 2016 11:02
--- NOTE | 2016-08-01 11:21 | HHI.PR ---
Subjective Remarks Follow up visit hypothyroidism, multiple fx trauma, status post left elbow ex- fix. Patient seen today. Flat affect. States his doing well- offers no medical complaints. Denies SOB/ dyspnea. Denies chest pain, palpitations, headaches, dizziness. Denies fevers, chills, n/v/d.- Constipation resolved BM 4 Objective Vitals Vital Signs Date Time Temp Pulse Resp B/P Pulse Ox O2 Delivery O2 Flow Rate FiO2 08/01/16 04:18 97.6 100 16 101/69 98 07/31/16 23:18 97.7 93 15 117/76 99 07/31/16 18:19 99.0 89 18 96/63 96 I/O 07/31/16 07/31/16 07/31/16 08/01/16 08/01/16 08/01/16 07:00 15:00 23:00 07:00 15:00 23:00 Intake Total 720 ml 720 ml 840 ml 360 ml Output Total 3200 ml 1650 ml 3240 ml Balance -2480 ml -930 ml 840 ml -2880 ml Intake Oral 720 ml 720 ml 840 ml 360 ml Output Urine Total 3200 ml 1650 ml 3240 ml # Voids 3 # Bowel Movements 4 0 Result Diagram: 07/30/16 0803 07/30/16 0803 Objective Remarks GENERAL: This is a well-nourished, well-developed patient, in no apparent distress. SKIN: No rashes, ecchymoses or lesions. Cool and dry. HEAD: Atraumatic. Normocephalic. No temporal or scalp tenderness. EYES: Extraocular motions intact. No scleral icterus. No injection or drainage. ENT: Nose without bleeding. Throat without erythema. Uvula midline. Airway patent. NECK: Trachea midline. No JVD or lymphadenopathy. Supple, nontender, no meningeal signs. CARDIOVASCULAR: Regular rate and rhythm without murmurs, gallops, or rubs. RESPIRATORY: Diminished bases. No wheezes, rales, or rhonchi. GASTROINTESTINAL: Abdomen soft, non-tender, nondistended. Normoactive bowel sounds all 4 quadrants. No hepato-splenomegaly, or palpable masses. No guarding. : Burrows in place draining clear yellow urine. MUSCULOSKELETAL: Extremities without clubbing, cyanosis, bilateral lower extremity trace edema. Able to wiggle bilateral toes and move bilateral foot weekly. Left upper extremity with ex-fix. NEUROLOGICAL: Awake and alert. Flat affect. Oriented to self, and place. Motor and sensory grossly within normal limits. Normal speech. A/P Problem List: (1) Schizoaffective disorder, bipolar type ICD Code: F25.0 Status: Acute (2) Femur fracture, right ICD Code: S72.91XA Status: Acute (3) Elbow fracture ICD Code: S42.409A Status: Acute (4) Patella fracture ICD Code: S82.009A Status: Acute (5) T12 vertebral fracture ICD Code: S22.089A Status: Acute (6) Hypothyroidism ICD Code: E03.9 Status: Chronic Assessment and Plan This a 50-year-old gentleman with a past medical history which includes hypothyroidism, bipolar and schizophrenia. Patient is status post trauma alert on 07/12/2016 secondary to suicide attempt patient jumped off a bridge [place] railroad tracks. Patient sustained multiple fractures has been taken to the OR initially was in intensive care unit and intubated for airway protection as well as pain management. Patient was extubated 07/13/2016. Bipolar, schizophrenia - managed by psychiatry team Multiple surgical interventions including: Patient received 4 units PRBCs, 1 FFP and platelets while in the OR. s/p right femur IMN s/p exfix left elbow s/p ORIF left patella right patella fx nonop pelvic fxs Latest surgical intervention- Status post Left elbow ex fix, redo Per Ortho, nonoperative management of right patella and pelvic fractures. Patient will maintain nonweightbearing on left upper extremity/bilateral lower extremity with daily dressing changes to the right femur, left knee, pinned care twice a day of left elbow. Patient will also continue to follow-up with Dr. Gentile if discharged home. - Xarelto 10 mg daily - Physical therapy/occupational therapy - Physical therapy recommends specialty bed auto rolling. Pressure relief. - Air mattress bed with altered rolling - Pain management [place]'s 7.5/325 mg Hypothyroidism - continue levothyroxine 150mg daily Constipation-resolved Continue bowel regimen Patient has indwelling Burrows catheter secondary to immobility and pelvic fractures Will check UA C&S if indicated DVT Prop Xarelto GI Prop Protonix Discussed with patient, RN and Isabella Calvo Aug 01, 2016 11:21
--- NOTE | 2016-08-01 12:37 | PD.ORT.PN ---
Subjective Subjective Remarks pain under control. feeling better. Objective Vitals Vital Signs Date Time Temp Pulse Resp B/P Pulse Ox O2 Delivery O2 Flow Rate FiO2 08/01/16 04:18 97.6 100 16 101/69 98 07/31/16 23:18 97.7 93 15 117/76 99 07/31/16 18:19 99.0 89 18 96/63 96 I/O 07/31/16 07/31/16 07/31/16 08/01/16 08/01/16 08/01/16 07:00 15:00 23:00 07:00 15:00 23:00 Intake Total 720 ml 720 ml 840 ml 360 ml Output Total 3200 ml 1650 ml 3240 ml Balance -2480 ml -930 ml 840 ml -2880 ml Intake Oral 720 ml 720 ml 840 ml 360 ml Output Urine Total 3200 ml 1650 ml 3240 ml # Voids 3 # Bowel Movements 4 0 Result Diagram: 07/30/16 0803 07/30/16 0803 Objective Remarks LUE: +elbow exfix. pin sits clean and dry. NVI distally with good extension of wrist and fingers LLE: incision and lacerations healing without sign of infection. sutures intact. +CKS. NVI RLE: +CKS. minimal swelling. NVI. incisions and lacerations healing without sign of infection.; Assessment & Plan Assessment and Plan 1) I&D with ORIF L open Patella fx, R long intramedullary femoral nail for intertroch and fem shaft fxs, I&D L Hand with closure of traumatic wound, I&D L elbow with application of ex-fix( [place]) 2) status post complex repair of left elbow fracture dislocation with hinged external fixator([place]) Begin daily dressing changes and pin care twice a day Nonweightbearing left upper extremity Occupational therapy for ROM of fingers 3) Right patella fracture to be treated nonoperatively with knee immobilizer and no range of motion of knee Bilateral patella fractures continue knee immobilizers Right femur fracture status post IM nail Pelvic fractures --plan nonoperative treatment NWB BLE dvt prophylaxis med management psych management d/c nguyen and sutures in bilat lower extremeties on Friday 08/04. place steri- strips. . Sam Sahni Aug 01, 2016 12:37
[2016-08-01] MEDS: ACETAMINOPHEN/HYDROcodone 325 MG/7.5 MG TAB PO PRN (17:41)
[2016-08-01 20:56] VITALS: BP 145/80; PULSE 81; RESP 16; TEMP 97.9; O2SAT 97
[2016-08-01] MEDS: QUEtiapine FUMARATE 100 MG TAB PO SCH (21:10)
[2016-08-01 21:43] LABS: BACTERIA, URINE MOD /hpf; BLOOD, URINE MOD (NEG); CALCIUM OXALATE CRYSTALS,URINE OCC /hpf; COMMENT (UR) CATH-CULTURE IND; CULTURE IF INDICATED CATH CULTURE IND; GLUCOSE,URINE NEG (NEG); KETONE, URINE NEG (NEG); NITRITE,URINE POS (NEG); SQUAMOUS EPITHELIAL CELL URINE <1 /hpf (0-5); URINE COLOR YELLOW (YELLW/STRAW)
[2016-08-02] VITALS: BP 115/65; PULSE 90; RESP 15; TEMP 97.7; O2SAT 97
[2016-08-02] MEDS: LEVOTHYROXINE SODIUM 150 MCG TAB PO SCH (06:00)
[2016-08-02 06:03] VITALS: BP 106/67; PULSE 84; RESP 14; TEMP 97.7; O2SAT 95
[2016-08-02] MEDS: RIVAROXABAN 10 MG TAB PO SCH (08:55)
[2016-08-02] MEDS: PANTOPRAZOLE SOD 40 MG DELAYED RELEASE TAB PO SCH (08:55)
[2016-08-02] MEDS: BENZOCAINE 6 MG/MENTHOL 10 MG LOZENGE BUCCAL PRN (08:55)
[2016-08-02] MEDS: DOCUSATE SODIUM 100 MG CAP PO SCH ×2 (08:55→22:04)
[2016-08-02] MEDS: ZIPRASIDONE HCL 40 MG CAP PO SCH ×2 (08:55→22:03)
[2016-08-02] MEDS: DOCUSATE SODIUM 50 MG/SENNA 8.6 MG TAB PO SCH (08:57)
[2016-08-02] MEDS: CIPROFLOXACIN 250 MG TAB PO SCH ×2 (09:00→22:04)
[2016-08-02] MEDS ORDERED: AMOXICILLIN/CLAVULANATE K 875 MG TAB PO SCH (09:00)
[2016-08-02] MEDS: LITHIUM CARBONATE 300 MG CAP PO SCH ×2 (09:00→22:04)
--- NOTE | 2016-08-02 11:29 | HHI.PR ---
Subjective Remarks Follow up visit hypothyroidism, multiple fx trauma, status post left elbow ex- fix. Patient seen today. Flat affect. States his doing well- offers no medical complaints. Denies SOB/ dyspnea. Denies chest pain, palpitations, headaches, dizziness. Denies fevers, chills, n/v/d.- Constipation resolved. Objective Vitals Vital Signs Date Time Temp Pulse Resp B/P Pulse Ox O2 Delivery O2 Flow Rate FiO2 08/02/16 06:03 97.7 84 14 106/67 95 08/02/16 00:00 97.7 90 15 115/65 97 08/01/16 20:56 97.9 81 16 145/80 97 I/O 08/01/16 08/01/16 08/01/16 08/02/16 08/02/16 08/02/16 07:00 15:00 23:00 07:00 15:00 23:00 Intake Total 360 ml 1040 ml 740 ml Output Total 3240 ml 3000 ml Balance -2880 ml 1040 ml -2260 ml Intake Oral 360 ml 1040 ml 740 ml Output Urine Total 3240 ml 3000 ml # Voids 1 # Bowel Movements 0 0 Result Diagram: 07/30/16 0803 07/30/16 0803 Imaging Last Impressions Knee X-Ray 07/29/16 0000 Signed Impressions: Service Date/Time: Friday, July 29, 2016 10:14 - CONCLUSION: 1. Stable examination of the left knee. The nondisplaced left proximal fibular fracture has a stable appearance. 2. The patella fracture has undergone prior ORIF. There is stable articular step off at the superior pole posteriorly. Moses Buenrostro MD Femur X-Ray 07/29/16 0000 Signed Impressions: Service Date/Time: Friday, July 29, 2016 10:19 - CONCLUSION: Stable examination of the right femur in this patient post recent right femur ORIF for treatment of a intertrochanteric fracture in distal femoral diaphysis fracture. There is also a comminuted patella fracture present. Moses Buenrostro MD Elbow X-Ray 07/29/16 0000 Signed Impressions: Service Date/Time: Friday, July 29, 2016 10:37 - CONCLUSION: 1. Postsurgical changes as above. Robson Ghotra MD Abdomen X-Ray 07/29/16 0000 Signed Impressions: Service Date/Time: Friday, July 29, 2016 18:13 - CONCLUSION: Moderate stool burden suggesting constipation. No dilated loops of bowel. Bruno Brito Jr., MD Objective Remarks GENERAL: This is a well-nourished, well-developed patient, in no apparent distress. SKIN: No rashes, ecchymoses or lesions. Cool and dry. HEAD: Atraumatic. Normocephalic. No temporal or scalp tenderness. EYES: Extraocular motions intact. No scleral icterus. No injection or drainage. ENT: Nose without bleeding. Throat without erythema. Uvula midline. Airway patent. NECK: Trachea midline. No JVD or lymphadenopathy. Supple, nontender, no meningeal signs. CARDIOVASCULAR: Regular rate and rhythm without murmurs, gallops, or rubs. RESPIRATORY: Diminished bases. No wheezes, rales, or rhonchi. GASTROINTESTINAL: Abdomen soft, non-tender, nondistended. Normoactive bowel sounds all 4 quadrants. No hepato-splenomegaly, or palpable masses. No guarding. : Burrows in place draining clear yellow urine. MUSCULOSKELETAL: Extremities without clubbing, cyanosis, bilateral lower extremity trace edema. Able to wiggle bilateral toes and move bilateral foot weekly. Left upper extremity with ex-fix. NEUROLOGICAL: Awake and alert. Flat affect. Oriented to self, and place. Motor and sensory grossly within normal limits. Normal speech. A/P Problem List: (1) Schizoaffective disorder, bipolar type ICD Code: F25.0 Status: Acute (2) Femur fracture, right ICD Code: S72.91XA Status: Acute (3) Elbow fracture ICD Code: S42.409A Status: Acute (4) Patella fracture ICD Code: S82.009A Status: Acute (5) T12 vertebral fracture ICD Code: S22.089A Status: Acute (6) Hypothyroidism ICD Code: E03.9 Status: Chronic Assessment and Plan This a 50-year-old gentleman with a past medical history which includes hypothyroidism, bipolar and schizophrenia. Patient is status post trauma alert on 07/12/2016 secondary to suicide attempt patient jumped off a bridge onto railroad tracks. Patient sustained multiple fractures has been taken to the OR initially was in intensive care unit and intubated for airway protection as well as pain management. Patient was extubated 07/13/2016. Bipolar, schizophrenia - managed by psychiatry team Multiple surgical interventions including: Patient received 4 units PRBCs, 1 FFP and platelets while in the OR. s/p right femur IMN s/p exfix left elbow s/p ORIF left patella right patella fx nonop pelvic fxs Latest surgical intervention- Status post Left elbow ex fix, redo Per Ortho, nonoperative management of right patella and pelvic fractures. Patient will maintain nonweightbearing on left upper extremity/bilateral lower extremity with daily dressing changes to the right femur, left knee, pinned care twice a day of left elbow. Patient will also continue to follow-up with Dr. Gentile if discharged home. - Xarelto 10 mg daily - Physical therapy/occupational therapy - Physical therapy recommends specialty bed auto rolling. Pressure relief. - Air mattress bed with altered rolling - Pain management Alpha's 7.5/325 mg Hypothyroidism - continue levothyroxine 150mg daily Constipation-resolved Continue bowel regimen UTI- start Cipro x 3 days follow culture results bilateral feet downward Multipodus boots to prevent foot drop DVT Prop Xarelto GI Prop Protonix Discussed with patient, RN and Isabella Calvo Aug 02, 2016 11:29 am Virgilio Troy DO Aug 02, 2016 2:06 pm
--- NOTE | 2016-08-02 12:21 | HHI.PYPN ---
Subjective Remarks Patient seen today for evaluation, he was found sleeping, but easily arousable, he reports improved mood, he is stays that he slept much better last night "had a very restful sleep last night", he denies depressed mood, denies anxiety, he denies suicidal or homicidal ideation, he denies visual and auditory hallucinations. Review of Systems Other No somatic complaints at this moment Objective Alert: Yes [place]: Person, Place, Date, Situation Mood: Calm Affect: Restricted Memory Intact: Recent (mildly impaired) Hallucinations: Other (patient denied any active auditory or visual hallucinations) Delusions: No Delusion Type: Other (no obvious delusional material voiced) Suicidal: Ideation (patient denied any suicidal ideation or plan at this time) Homicidal: Ideation (denies any homicidal ideation or plan) Insight/Judgement Fair Labs Test 08/01/16 21:20 Urine Color YELLOW Urine Turbidity HAZY Urine pH 7.0 Urine Specific [place] 1.009 Urine Protein TRACE mg/dL Urine Glucose (UA) NEG mg/dL Urine Ketones NEG mg/dL Urine Occult Blood MOD Urine Nitrite POS Urine Bilirubin NEG Urine Urobilinogen LESS THAN 2.0 MG/DL Urine Leukocyte Esterase LARGE Urine RBC 2 /hpf Urine WBC /hpf Urine WBC Clumps MANY Urine Squamous Epithelial <1 /hpf Cells Urine Calcium Oxalate Crystals OCC /hpf Urine Amorphous Sediment MOD Urine Bacteria MOD /hpf Microscopic Urinalysis Comment CATH-CULTURE IND Date/Time Procedure Status Source Growth 08/01/16 21:20 Urine Culture Received Urine Clean Catch Pending Vitals/IOs Vital Signs Date Time Temp Pulse Resp B/P Pulse Ox O2 Delivery O2 Flow Rate FiO2 08/02/16 06:03 97.7 84 14 106/67 95 Intake and Output 08/01/16 08/01/16 08/02/16 08:00 16:00 00:00 Intake Total 360 ml 1040 ml Output Total 3240 ml Balance -2880 ml 1040 ml Assessment & Plan Problem List: (1) Schizoaffective disorder, bipolar type ICD Code: F25.0 Assessment & Plan Estimated LOS: days Justification for Cont. Inpt. Continue psychiatric admission for stabilization Request HC Surrog/Guard Advoc?: No Dariel Sanford MD Aug 02, 2016 12:21
[2016-08-02] MEDS: ACETAMINOPHEN/HYDROcodone 325 MG/7.5 MG TAB PO PRN (15:15)
[2016-08-02 18:00] VITALS: BP 111/63; PULSE 102; RESP 16; TEMP 98.5; O2SAT 98
[2016-08-02] MEDS: QUEtiapine FUMARATE 100 MG TAB PO SCH (22:03)
[2016-08-03] VITALS: BP 116/74; PULSE 94; RESP 14; TEMP 98; O2SAT 97
[2016-08-03 04:10] VITALS: BP 112/57; PULSE 88; RESP 15; TEMP 98; O2SAT 97
[2016-08-03] MEDS: LEVOTHYROXINE SODIUM 150 MCG TAB PO SCH (06:00)
[2016-08-03 08:40] VITALS: BP 121/68; PULSE 94; RESP 15; TEMP 97.4; O2SAT 97
[2016-08-03] MEDS: CIPROFLOXACIN 250 MG TAB PO SCH ×2 (09:36→20:16)
[2016-08-03] MEDS: PANTOPRAZOLE SOD 40 MG DELAYED RELEASE TAB PO SCH (09:36)
[2016-08-03] MEDS: DOCUSATE SODIUM 50 MG/SENNA 8.6 MG TAB PO SCH (09:36)
[2016-08-03] MEDS: DOCUSATE SODIUM 100 MG CAP PO SCH ×2 (09:36→20:16)
[2016-08-03] MEDS: RIVAROXABAN 10 MG TAB PO SCH (09:36)
[2016-08-03] MEDS: ZIPRASIDONE HCL 40 MG CAP PO SCH ×2 (09:37→16:37)
[2016-08-03] MEDS: LITHIUM CARBONATE 300 MG CAP PO SCH ×2 (09:37→20:16)
--- NOTE | 2016-08-03 09:56 | HHI.PYPN ---
Subjective Remarks Patient was seen for reevaluation today along with nurse in charge Dominic, today patient shows a much brighter affect yesterday, he was found comfortably reading a book in his bed, once we saw the taking he immediately smiled and is states that today he feels much better, when he was asked about his opinion on the rainy weather he answer "is just the weather"no making any connection between his emotions and environment, as he did in the past. He described his mood as fine, 01/12, he denies suicidal and homicidal ideation, he denies visual and auditory hallucinations. No paranoia, delusions, psychosis in general observed. His internal preoccupation, speech latency and blocking thought is less pronounced today. Patient expresses motivation to get better, to be discharged back home and be compliant with psychotropics and follow-ups. Review of Systems Other Patient doesn't have any somatic complaints Objective Alert: Yes [place]: Person, Place, Date, Situation Mood: Calm Affect: Euthymic Memory Intact: Recent (mildly impaired) Hallucinations: Other (patient denied any active auditory or visual hallucinations) Delusions: No Delusion Type: Other (no obvious delusional material voiced) Suicidal: Ideation (patient denied any suicidal ideation or plan at this time) Homicidal: Ideation (denies any homicidal ideation or plan) Insight/Judgement Good Labs Date/Time Procedure Status Source Growth 08/01/16 21:20 Urine Culture - Preliminary Resulted Urine Clean Catch Gram Negative Shine Vitals/IOs Vital Signs Date Time Temp Pulse Resp B/P Pulse Ox O2 Delivery O2 Flow Rate FiO2 08/03/16 08:40 97.4 94 15 121/68 97 Intake and Output 08/02/16 08/02/16 08/03/16 08:00 16:00 00:00 Intake Total 1090 ml 830 ml 500 ml Output Total 3000 ml 1350 ml 750 ml Balance -1910 ml -520 ml -250 ml Assessment & Plan Problem List: (1) Schizoaffective disorder, bipolar type Assessment & Plan: Patient continues showing adequate response to psychotropics and psychotherapy, today he shows up brighter affect, he seems to be more insightful of his past psychosis and mood symptoms. Will order lithium levels for tomorrow, will increase the Seroquel to 200 mg at bedtime. ICD Code: F25.0 Assessment & Plan Estimated LOS: days Justification for Cont. Inpt. Patient poses a very high risk to decompensate out of the lack unit. He still needs medication adjustment. Request HC Surrog/Guard Advoc?: No Dariel Sanford MD Aug 03, 2016 09:55
--- NOTE | 2016-08-03 09:56 | HHI.PR ---
Subjective Remarks Follow up visit hypothyroidism, multiple fx trauma, status post left elbow ex- fix. Patient seen today. States his doing well- offers no medical complaints. Denies SOB/ dyspnea. Denies chest pain, palpitations, headaches, dizziness. Denies fevers, chills, n/v/d.- Constipation resolved. Objective Vitals Vital Signs Date Time Temp Pulse Resp B/P Pulse Ox O2 Delivery O2 Flow Rate FiO2 08/03/16 08:40 97.4 94 15 121/68 97 08/03/16 04:10 98.0 88 15 112/57 97 08/03/16 00:00 98.0 94 14 116/74 97 08/02/16 18:00 98.5 102 16 111/63 98 I/O 08/02/16 08/02/16 08/02/16 08/03/16 08/03/16 08/03/16 07:00 15:00 23:00 07:00 15:00 23:00 Intake Total 740 ml 1180 ml 500 ml 240 ml 720 ml Output Total 3000 ml 1350 ml 750 ml 0 ml Balance -2260 ml -170 ml -250 ml 240 ml 720 ml Intake Oral 740 ml 1180 ml 500 ml 240 ml 720 ml Output Urine Total 3000 ml 1350 ml 750 ml 0 ml # Bowel Movements 0 0 0 0 Result Diagram: 07/30/1680207/30/16802 Objective Remarks GENERAL: This is a well-nourished, well-developed patient, in no apparent distress. SKIN: No rashes, ecchymoses or lesions. Cool and dry. HEAD: Atraumatic. Normocephalic. No temporal or scalp tenderness. EYES: Extraocular motions intact. No scleral icterus. No injection or drainage. ENT: Nose without bleeding. Throat without erythema. Uvula midline. Airway patent. NECK: Trachea midline. No JVD or lymphadenopathy. Supple, nontender, no meningeal signs. CARDIOVASCULAR: Regular rate and rhythm without murmurs, gallops, or rubs. RESPIRATORY: Diminished bases. No wheezes, rales, or rhonchi. GASTROINTESTINAL: Abdomen soft, non-tender, nondistended. Normoactive bowel sounds all 4 quadrants. No hepato-splenomegaly, or palpable masses. No guarding. : Burrows in place draining clear yellow urine. MUSCULOSKELETAL: Extremities without clubbing, cyanosis, bilateral lower extremity trace edema. Able to wiggle bilateral toes and move bilateral foot weekly. Left upper extremity with ex-fix. NEUROLOGICAL: Awake and alert. Flat affect. Oriented to self, and place. Motor and sensory grossly within normal limits. Normal speech. A/P Problem List: (1) Schizoaffective disorder, bipolar type ICD Code: F25.0 Status: Acute (2) Femur fracture, right ICD Code: S72.91XA Status: Acute (3) Elbow fracture ICD Code: S42.409A Status: Acute (4) Patella fracture ICD Code: S82.009A Status: Acute (5) T12 vertebral fracture ICD Code: S22.089A Status: Acute (6) Hypothyroidism ICD Code: E03.9 Status: Chronic Assessment and Plan This a 50-year-old gentleman with a past medical history which includes hypothyroidism, bipolar and schizophrenia. Patient is status post trauma alert on 07/12/2016 secondary to suicide attempt patient jumped off a bridge onto railroad tracks. Patient sustained multiple fractures has been taken to the OR initially was in intensive care unit and intubated for airway protection as well as pain management. Patient was extubated 07/13/2016. Bipolar, schizophrenia - managed by psychiatry team Multiple surgical interventions including: Patient received 4 units PRBCs, 1 FFP and platelets while in the OR. s/p right femur IMN s/p exfix left elbow s/p ORIF left patella right patella fx nonop pelvic fxs Latest surgical intervention- Status post Left elbow ex fix, redo Per Ortho, nonoperative management of right patella and pelvic fractures. Patient will maintain nonweightbearing on left upper extremity/bilateral lower extremity with daily dressing changes to the right femur, left knee, pinned care twice a day of left elbow. Patient will also continue to follow-up with Dr. Gentile if discharged home. - Xarelto 10 mg daily - Physical therapy/occupational therapy - Physical therapy recommends specialty bed auto rolling. Pressure relief. - Air mattress bed with altered rolling - Pain management [place]'s 7.5/325 mg Hypothyroidism - continue levothyroxine 150mg daily Constipation-resolved Continue bowel regimen UTI- start Cipro x 3 days follow culture results gram neg rods bilateral feet downward Multipodus boots to prevent foot drop DVT Prop Xarelto GI Prop Protonix Discussed with patient, RN and Isabella Calvo Aug 03, 2016 9:56 am Virgilio Troy DO Aug 03, 2016 1:06 pm
[2016-08-03 11:00] VITALS: BP 119/73; PULSE 101; RESP 16; TEMP 97.4; O2SAT 98
[2016-08-03] MEDS: ACETAMINOPHEN/HYDROcodone 325 MG/7.5 MG TAB PO PRN (14:53)
[2016-08-03 15:15] VITALS: BP 92/55; PULSE 87; RESP 15; TEMP 97.5; O2SAT 96
[2016-08-03 18:35] VITALS: BP 111/64; PULSE 102; RESP 16; TEMP 97.2; O2SAT 98
[2016-08-03] MEDS: QUEtiapine FUMARATE 100 MG TAB PO SCH (20:16)
[2016-08-04 04:00] VITALS: BP 114/71; PULSE 87; RESP 17; TEMP 98; O2SAT 98
[2016-08-04] MEDS: LEVOTHYROXINE SODIUM 150 MCG TAB PO SCH (05:14)
[2016-08-04] MEDS ORDERED: DOCUSATE SODIUM 100 MG CAP PO PRN (05:15)
--- NOTE | 2016-08-04 07:47 | PD.ORT.PN ---
Subjective Subjective Remarks resting comfortably Objective Vitals Vital Signs Date Time Temp Pulse Resp B/P Pulse Ox O2 Delivery O2 Flow Rate FiO2 08/04/16 04:00 98.0 87 17 114/71 98 08/03/16 18:35 97.2 102 16 111/64 98 08/03/16 15:15 97.5 87 15 92/55 96 08/03/16 11:00 97.4 101 16 119/73 98 08/03/16 08:40 97.4 94 15 121/68 97 I/O 08/03/16 08/03/16 08/03/16 08/04/16 08/04/16 08/04/16 07:00 15:00 23:00 07:00 15:00 23:00 Intake Total 240 ml 840 ml 960 ml Output Total 0 ml 1850 ml 700 ml 700 ml Balance 240 ml -1010 ml 260 ml -700 ml Intake Oral 240 ml 840 ml 960 ml Output Urine Total 0 ml 1100 ml 700 ml 700 ml Hemodialysis 750 ml # Bowel Movements 0 Objective Remarks LUE: +elbow exfix. pin sits clean and dry. NVI distally beginning to develop contractures of fingers and wrist. incisions healing well LLE: incision and lacerations healing without sign of infection. sutures intact. +CKS. NVI RLE: +CKS. minimal swelling. NVI. incisions and lacerations healing without sign of infection.; Pelvis with mild tenderness with motion of hips Assessment & Plan Assessment and Plan 1) I&D with ORIF L open Patella fx, R long intramedullary femoral nail for intertroch and fem shaft fxs, I&D L Hand with closure of traumatic wound, I&D L elbow with application of ex-fix( [place]) 2) status post radial head replacement and complex repair of left elbow fracture dislocation with hinged external fixator([place]) DC nguyen and suture to left upper extremity continue daily dressing changes x 3 days over elbow([place]) 3 more days and continue pin care twice a day Nonweightbearing left upper extremity Occupational therapy for ROM of fingers 3) Right patella fracture to be treated nonoperatively with knee immobilizer and no range of motion of knee Bilateral patella fractures continue knee immobilizers Right femur fracture status post IM nail Pelvic fractures --plan nonoperative treatment NWB BLE dvt prophylaxis med management psych management d/c nguyen and sutures in bilat lower extremeties on Friday 08/04. place steri- strips. . ALANNA MOSS PA-C Aug 04, 2016 07:47
--- NOTE | 2016-08-04 08:55 | RADRPT ---
EXAM DATE/TIME: 08/04/2016 07:59 [facility] COMPARISON: No previous studies available for comparison. INDICATIONS : Patient complains of swelling and pain of left wrist. MEDICAL HISTORY : None. SURGICAL HISTORY : Left elbow fracture ENCOUNTER: Initial ACUITY: 3 weeks PAIN SCORE: 3/10 LOCATION: Left wrist FINDINGS: There is a non-displaced fracture of the distal radius involving the radiocarpal joint. Alignment is anatomic. Carpus is intact. CONCLUSION: Non-displaced fracture involving the distal radius and radiocarpal joint. Julius Barillas MD FACR on August 04, 2016 at 8:47 Board Certified Radiologist. This report was verified electronically.
[2016-08-04] MEDS: LITHIUM CARBONATE 300 MG CAP PO SCH ×2 (09:25→20:08)
[2016-08-04] MEDS: CIPROFLOXACIN 250 MG TAB PO SCH ×2 (09:25→20:08)
[2016-08-04] MEDS: PANTOPRAZOLE SOD 40 MG DELAYED RELEASE TAB PO SCH (09:25)
[2016-08-04] MEDS: DOCUSATE SODIUM 50 MG/SENNA 8.6 MG TAB PO SCH ×2 (09:25→20:08)
[2016-08-04] MEDS: RIVAROXABAN 10 MG TAB PO SCH (09:25)
[2016-08-04] MEDS: ZIPRASIDONE HCL 40 MG CAP PO SCH ×2 (09:26→18:00)
--- NOTE | 2016-08-04 10:06 | HHI.PYPN ---
Subjective Remarks This was seen today for psychiatric reevaluation by psychiatric team integrated by therapist JustenKEITH and myself, patient was calm, cooperative, he reports good mood, says that he feels much better and he is ready to step up to the next level of his medical care. Patient expressed understanding of the importance of following medical directions, being fully compliant with psychiatric and medical medications, and following up sharply with outpatient appointments. He is fully oriented 3, no agitation, delusions, paranoia, ideas of reference, delusions of reference, thought control, impairment in reality testing was observed at this moment. He denies suicidal or homicidal ideation, he denies visual and auditory donation. Review of Systems Other No somatic complaints Objective Alert: Yes [place]: Person, Place, Date, Situation Mood: Calm Affect: Euthymic Memory Intact: Recent (mildly impaired) Hallucinations: Other (patient denied any active auditory or visual hallucinations) Delusions: No Delusion Type: Other (no obvious delusional material voiced) Suicidal: Ideation (patient denied any suicidal ideation or plan at this time) Homicidal: Ideation (denies any homicidal ideation or plan) Insight/Judgement Good Labs Date/Time Procedure Status Source Growth 08/01/16 21:20 Urine Culture - Final Complete Urine Clean Catch Escherichia Coli Vitals/IOs Vital Signs Date Time Temp Pulse Resp B/P Pulse Ox O2 Delivery O2 Flow Rate FiO2 08/04/16 04:00 98.0 87 17 114/71 98 Intake and Output 08/03/16 08/03/16 08/04/16 08:00 16:00 00:00 Intake Total 240 ml 840 ml 960 ml Output Total 0 ml 1850 ml 700 ml Balance 240 ml -1010 ml 260 ml Assessment & Plan Problem List: (1) Schizoaffective disorder, bipolar type Assessment & Plan: Patent continue to show good response to medications and psychotherapy. Even though some residual symptomatology of psychosis, such as a slow thought processing, speech latency, persist the patient is widely improved since he is in the unit. At this point we are starting to coordinate a safe discharge plan that includes transitioning in physical rehabilitation. The case was discussed also with primary medical team. No psychotropic changes today. ICD Code: F25.0 Assessment & Plan Estimated LOS: days Justification for Cont. Inpt. A safe discharge plan needs to be coordinated. Request HC Surrog/Guard Advoc?: No Juvenal,Dariel B. MD Aug 04, 2016 10:06
--- NOTE | 2016-08-04 12:52 | HHI.PR ---
Subjective Remarks Follow up visit hypothyroidism, multiple fx trauma, status post left elbow ex- fix. Patient seen today. States he is doing well- offers no medical complaints. Denies SOB/ dyspnea. Denies chest pain, palpitations, headaches , dizziness. Denies fevers, chills, n/v/d.- Constipation resolved. Objective Vitals Vital Signs Date Time Temp Pulse Resp B/P Pulse Ox O2 Delivery O2 Flow Rate FiO2 08/04/16 04:00 98.0 87 17 114/71 98 08/03/16 18:35 97.2 102 16 111/64 98 08/03/16 15:15 97.5 87 15 92/55 96 I/O 08/03/16 08/03/16 08/03/16 08/04/16 08/04/16 08/04/16 07:00 15:00 23:00 07:00 15:00 23:00 Intake Total 240 ml 840 ml 960 ml Output Total 0 ml 1850 ml 700 ml 700 ml Balance 240 ml -1010 ml 260 ml -700 ml Intake Oral 240 ml 840 ml 960 ml Output Urine Total 0 ml 1100 ml 700 ml 700 ml Hemodialysis 750 ml # Bowel Movements 0 Objective Remarks GENERAL: This is a well-nourished, well-developed patient, in no apparent distress. SKIN: No rashes, ecchymoses or lesions. Cool and dry. HEAD: Atraumatic. Normocephalic. No temporal or scalp tenderness. EYES: Extraocular motions intact. No scleral icterus. No injection or drainage. ENT: Nose without bleeding. Throat without erythema. Uvula midline. Airway patent. NECK: Trachea midline. No JVD or lymphadenopathy. Supple, nontender, no meningeal signs. CARDIOVASCULAR: Regular rate and rhythm without murmurs, gallops, or rubs. RESPIRATORY: Diminished bases. No wheezes, rales, or rhonchi. GASTROINTESTINAL: Abdomen soft, non-tender, nondistended. Normoactive bowel sounds all 4 quadrants. No hepato-splenomegaly, or palpable masses. No guarding. : Burrows in place draining clear yellow urine. MUSCULOSKELETAL: Extremities without clubbing, cyanosis, bilateral lower extremity trace edema. Able to wiggle bilateral toes and move bilateral foot weekly. Left upper extremity with ex-fix. NEUROLOGICAL: Awake and alert. Flat affect. Oriented to self, and place. Motor and sensory grossly within normal limits. Normal speech. A/P Problem List: (1) Schizoaffective disorder, bipolar type ICD Code: F25.0 Status: Acute (2) Femur fracture, right ICD Code: S72.91XA Status: Acute (3) Elbow fracture ICD Code: S42.409A Status: Acute (4) Patella fracture ICD Code: S82.009A Status: Acute (5) T12 vertebral fracture ICD Code: S22.089A Status: Acute (6) Hypothyroidism ICD Code: E03.9 Status: Chronic Assessment and Plan This a 50-year-old gentleman with a past medical history which includes hypothyroidism, bipolar and schizophrenia. Patient is status post trauma alert on 07/12/2016 secondary to suicide attempt patient jumped off a bridge onto railroad tracks. Patient sustained multiple fractures has been taken to the OR initially was in intensive care unit and intubated for airway protection as well as pain management. Patient was extubated 07/13/2016. Bipolar, schizophrenia - managed by psychiatry team Multiple surgical interventions including: Patient received 4 units PRBCs, 1 FFP and platelets while in the OR. s/p right femur IMN s/p exfix left elbow s/p ORIF left patella right patella fx nonop pelvic fxs Latest surgical intervention- Status post Left elbow ex fix, redo Per Ortho, nonoperative management of right patella and pelvic fractures. Patient will maintain nonweightbearing on left upper extremity/bilateral lower extremity with daily dressing changes to the right femur, left knee, pinned care twice a day of left elbow. Patient will also continue to follow-up with Dr. Gentile if discharged home. - Xarelto 10 mg daily - Physical therapy/occupational therapy - Physical therapy recommends specialty bed auto rolling. Pressure relief. - Air mattress bed with altered rolling - Pain management [place]'s 7.5/325 mg Hypothyroidism - continue levothyroxine 150mg daily Constipation-resolved Continue bowel regimen UTI- Continue Cipro follow culture results E coli bilateral feet downward Multipodus boots to prevent foot drop DVT Prop Xarelto GI Prop Protonix Discussed with patient, RN and Dr. Sanford Patient is medically stable to transfer to rehabilitation Written by Isabella Luther, acting as scribe for Dr. Madrid on 08/04/16 at 12:51. The documentation accurately reflects the work performed [id number] by me on at [id number] Isabella Luther Aug 04, 2016 12:52 Larry Madrid MD Aug 04, 2016 14:45
[2016-08-04 19:17] VITALS: BP 115/74; PULSE 92; RESP 18; TEMP 98.1; O2SAT 96
[2016-08-04] MEDS: QUEtiapine FUMARATE 100 MG TAB PO SCH (20:08)
[2016-08-05 02:00] VITALS: BP 115/70; PULSE 88; RESP 16; TEMP 98; O2SAT 98
[2016-08-05] MEDS: LEVOTHYROXINE SODIUM 150 MCG TAB PO SCH (05:29)
[2016-08-05 05:47] VITALS: BP 119/41; PULSE 89; RESP 18; TEMP 98.1; O2SAT 97
[2016-08-05 07:00] VITALS: BP 135/71; PULSE 63; RESP 18; TEMP 97.7; O2SAT 95
[2016-08-05] MEDS: LITHIUM CARBONATE 300 MG CAP PO SCH ×2 (08:22→20:19)
[2016-08-05] MEDS: ZIPRASIDONE HCL 40 MG CAP PO SCH ×2 (08:22→17:12)
[2016-08-05] MEDS: PANTOPRAZOLE SOD 40 MG DELAYED RELEASE TAB PO SCH (08:22)
[2016-08-05] MEDS: RIVAROXABAN 10 MG TAB PO SCH (08:22)
[2016-08-05] MEDS: DOCUSATE SODIUM 50 MG/SENNA 8.6 MG TAB PO SCH ×2 (08:23→20:19)
[2016-08-05] MEDS: CIPROFLOXACIN 250 MG TAB PO SCH ×2 (08:23→22:15)
--- NOTE | 2016-08-05 09:06 | HHI.PYPN ---
Subjective Remarks Patient was seen today for psychiatric reevaluation today along with KEITH Malik, patient was found in a good mood, with a better range of affect, he explains that he feels better, reports 7/10 mood, says that he is motivated to move forward and restart his process of physical rehabilitation. He reports better sleep, improved level of energy, he is future oriented, has a plan to be discharged back home, start some kind of hospital voluntarism, continue his outpatient psychiatric follow-up and medications. He denies suicidal or homicidal ideation, he denies visual and auditory hallucinations. At the moment of this evaluation no paranoia, delusions, agitation, aggressive behavior , mood or behavioral dysregulation are observed, however some residual negative symptoms of psychosis still persist, such as speech latency, thought blocking and internal preoccupation. Patient is fully oriented 3, no attention deficit , fluctuation of consciousness observed at this moment. Review of Systems Other No somatic complaints Objective Alert: Yes [place]: Person, Place, Date, Situation Mood: Calm Affect: Euthymic Memory Intact: Recent (mildly impaired) Hallucinations: Other (patient denied any active auditory or visual hallucinations) Delusions: No Delusion Type: Other (no obvious delusional material voiced) Suicidal: Ideation (patient denied any suicidal ideation or plan at this time) Homicidal: Ideation (denies any homicidal ideation or plan) Insight/Judgement Good Labs Date/Time Procedure Status Source Growth 08/01/16 21:20 Urine Culture - Final Complete Urine Clean Catch Escherichia Coli Vitals/IOs Vital Signs Date Time Temp Pulse Resp B/P Pulse Ox O2 Delivery O2 Flow Rate FiO2 08/05/16 05:47 98.1 89 18 119/41 97 Intake and Output 08/04/16 08/04/16 08/05/16 08:00 16:00 00:00 Intake Total 760 ml Output Total 700 ml 1300 ml Balance -700 ml -1300 ml 760 ml Assessment & Plan Problem List: (1) Schizoaffective disorder, bipolar type Assessment & Plan: Patient continues showing a positive response to psychotropics and psychotherapy. At this point his mood, affect and thought process are visibly improved. He seems to be motivated to follow medical recommendations, future oriented, insightful in some way. He keeps denying suicidal ideation, homicidal ideation, visual and auditory hallucinations. No paranoia, delusions, agitation, aggressive behavior, ideas of reference, thought controlling have been elicited or reported. However, is evident that some residual negative symptoms of psychosis is still persist, such as blocking thought, speech latency, internal preoccupation. We will meet with medical and surgical team to get their approval to transfer the patient to physical rehabilitation. Extensive support, motivation and psychoeducation provided. Will order [place] levels. ICD Code: F25.0 Assessment & Plan Estimated LOS: days Justification for Cont. Inpt. Patient is now in the process of being transferred to physical rehabilitation. Request HC Surrog/Guard Advoc?: No Dariel Sanford MD Aug 05, 2016 09:06
--- NOTE | 2016-08-05 10:24 | HHI.PR ---
Subjective Remarks Follow-up visit hypothyroidism, multiple fracture trauma, S/P left elbow ex-fix , UTI. Patient seen today. Reports he is doing well. Denies any fevers, chills, dysuria. States has been eating okay. Denies pain and discomfort. Denies SOB/ dyspnea. Denies chest pain, palpitations, headaches, dizziness. Denies n/v/d. Objective Vitals Vital Signs Date Time Temp Pulse Resp B/P Pulse Ox O2 Delivery O2 Flow Rate FiO2 08/05/16 05:47 98.1 89 18 119/41 97 08/05/16 02:00 98.0 88 16 115/70 98 08/04/16 19:17 98.1 92 18 115/74 96 I/O 08/04/16 08/04/16 08/04/16 08/05/16 08/05/16 08/05/16 07:00 15:00 23:00 07:00 15:00 23:00 Intake Total 760 ml Output Total 700 ml 1300 ml 700 ml Balance -700 ml -1300 ml 760 ml -700 ml Intake Oral 760 ml Output Urine Total 700 ml 1300 ml 700 ml # Voids 2 # Bowel Movements 1 Imaging Last Impressions Wrist X-Ray 08/04/16 0000 Signed Impressions: Service Date/Time: Thursday, August 04, 2016 07:59 - CONCLUSION: Non- displaced fracture involving the distal radius and radiocarpal joint. Julius Barillas MD FACR Knee X-Ray 07/29/16 0000 Signed Impressions: Service Date/Time: Friday, July 29, 2016 10:14 - CONCLUSION: 1. Stable examination of the left knee. The nondisplaced left proximal fibular fracture has a stable appearance. 2. The patella fracture has undergone prior ORIF. There is stable articular step off at the superior pole posteriorly. Moses Buenrostro MD Femur X-Ray 07/29/16 0000 Signed Impressions: Service Date/Time: Friday, July 29, 2016 10:19 - CONCLUSION: Stable examination of the right femur in this patient post recent right femur ORIF for treatment of a intertrochanteric fracture in distal femoral diaphysis fracture. There is also a comminuted patella fracture present. Moses Buenrostro MD Elbow X-Ray 07/29/16 0000 Signed Impressions: Service Date/Time: Friday, July 29, 2016 10:37 - CONCLUSION: 1. Postsurgical changes as above. Robson Ghotra MD Abdomen X-Ray 07/29/16 0000 Signed Impressions: Service Date/Time: Friday, July 29, 2016 18:13 - CONCLUSION: Moderate stool burden suggesting constipation. No dilated loops of bowel. Bruno Brito Jr., MD Objective Remarks GENERAL: This is a well-nourished, well-developed patient, in no apparent distress. SKIN: No rashes, ecchymoses or lesions. Cool and dry. HEAD: Atraumatic. Normocephalic. No temporal or scalp tenderness. EYES: Pupils equal round and reactive. Extraocular motions intact. No scleral icterus. No injection or drainage. ENT: Nose without bleeding. Throat without erythema. Uvula midline. Airway patent. NECK: Trachea midline. No JVD or lymphadenopathy. Supple, nontender, no meningeal signs. CARDIOVASCULAR: Regular rate and rhythm without murmurs, gallops, or rubs. RESPIRATORY: Diminished bases. No wheezes, rales, or rhonchi. GASTROINTESTINAL: Abdomen soft, non-tender, nondistended. No hepato-splenomegaly , or palpable masses. No guarding. MUSCULOSKELETAL: Extremities without clubbing, cyanosis, bilateral lower extremity trace edema. Able to wiggle bilateral toes and move bilateral foot weakly. Left upper extremity with ex-fix. NEUROLOGICAL: Awake and alert. Flat affect. Oriented to self, and place. Sensory grossly within normal limits. Normal speech. Procedures s/p right femur IMN s/p exfix left elbow s/p ORIF left patella right patella fx A/P Problem List: (1) Schizoaffective disorder, bipolar type ICD Code: F25.0 Status: Acute (2) Femur fracture, right ICD Code: S72.91XA Status: Acute (3) Elbow fracture ICD Code: S42.409A Status: Acute (4) Patella fracture ICD Code: S82.009A Status: Acute (5) T12 vertebral fracture ICD Code: S22.089A Status: Acute (6) Hypothyroidism ICD Code: E03.9 Status: Chronic Assessment and Plan This a 50-year-old gentleman with a past medical history which includes hypothyroidism, bipolar and schizophrenia. Patient is status post trauma alert on 07/12/2016 secondary to suicide attempt patient jumped off a bridge onto railroad tracks. Patient sustained multiple fractures has been taken to the OR initially was in intensive care unit and intubated for airway protection as well as pain management. Patient was extubated 07/13/2016. Bipolar, schizophrenia - managed by psychiatry team Multiple surgical interventions including: Patient received 4 units PRBCs, 1 FFP and platelets while in the OR. s/p right femur IMN s/p exfix left elbow s/p ORIF left patella right patella fx nonop pelvic fxs Latest surgical intervention- Status post Left elbow ex fix, redo Per Ortho, nonoperative management of right patella and pelvic fractures. Patient will maintain nonweightbearing on left upper extremity/bilateral lower extremity with daily dressing changes to the right femur, left knee, pinned care twice a day of left elbow. Patient will also continue to follow-up with Dr. Gentile if discharged home. - Xarelto 10 mg daily - Physical therapy/occupational therapy - Physical therapy recommends specialty bed auto rolling. Pressure relief. - Air mattress bed with altered rolling - Pain management [place]'s 7.5/325 mg - May transferred to [facility] Hypothyroidism - continue levothyroxine 150mg daily DVT Prop Xarelto GI Prop Protonix Full code Discussed with patient, nursing, and Dr. Sanford Written by Sera Jameson, acting as scribe for Dr. Madrid on 08/05/16 at 10: 06. The documentation accurately reflects the work performed [id number] by me on at 21:35. Sera Brandon Aug 05, 2016 10:24 Larry Madrid MD Aug 05, 2016 21:36
[2016-08-05 11:00] VITALS: BP 122/64; PULSE 104; RESP 18; TEMP 98.3; O2SAT 97
[2016-08-05] MEDS: QUEtiapine FUMARATE 100 MG TAB PO SCH (20:19)
[2016-08-05] MEDS: ACETAMINOPHEN/HYDROcodone 325 MG/7.5 MG TAB PO PRN (20:19)
[2016-08-05 22:00] VITALS: BP 102/64; PULSE 93; RESP 18; TEMP 97.8; O2SAT 97
[2016-08-06] MEDS: LEVOTHYROXINE SODIUM 150 MCG TAB PO SCH (05:36)
[2016-08-06 05:51] VITALS: BP 98/60; PULSE 95; RESP 16; TEMP 97.8; O2SAT 96
[2016-08-06] MEDS: ZIPRASIDONE HCL 40 MG CAP PO SCH ×2 (09:00→17:34)
[2016-08-06] MEDS: CIPROFLOXACIN 250 MG TAB PO SCH ×2 (09:00→20:43)
[2016-08-06] MEDS: PANTOPRAZOLE SOD 40 MG DELAYED RELEASE TAB PO SCH (09:00)
[2016-08-06] MEDS: RIVAROXABAN 10 MG TAB PO SCH (09:00)
[2016-08-06] MEDS: LITHIUM CARBONATE 300 MG CAP PO SCH ×2 (09:00→20:43)
[2016-08-06] MEDS: DOCUSATE SODIUM 50 MG/SENNA 8.6 MG TAB PO SCH ×2 (09:00→20:43)
--- NOTE | 2016-08-06 10:39 | HHI.PYPN ---
Subjective Remarks Patient seen today for reevaluation, today seems to be lethargic, distant, a little be internally preoccupied, he reports to be sad, but he doesn't elaborate about the reason his sadness, he says that he is a little pessimistic about his rehabilitation "because I might not be ready physically", however he says that he is willing to try and he wants to get better, he denies suicidal or homicidal ideation, he denies visual and auditory hallucinations. Review of Systems Other No somatic complain Objective Alert: Yes [place]: Person, Place, Date, Situation Mood: Calm, Depressed Affect: Restricted Memory Intact: Recent (mildly impaired) Hallucinations: Other (patient denied any active auditory or visual hallucinations) Delusions: No Delusion Type: Other (no obvious delusional material voiced) Suicidal: Ideation (patient denied any suicidal ideation or plan at this time) Homicidal: Ideation (denies any homicidal ideation or plan) Insight/Judgement fair Labs Date/Time Procedure Status Source Growth 08/01/16 21:20 Urine Culture - Final Complete Urine Clean Catch Escherichia Coli Vitals/IOs Vital Signs Date Time Temp Pulse Resp B/P Pulse Ox O2 Delivery O2 Flow Rate FiO2 08/06/16 05:51 97.8 95 16 98/60 96 Intake and Output 08/05/16 08/05/16 08/06/16 08:00 16:00 00:00 Intake Total 480 ml Output Total 700 ml 1650 ml 1400 ml Balance -700 ml -1170 ml -1400 ml Assessment & Plan Problem List: (1) Schizoaffective disorder, bipolar type Assessment & Plan: Patient is to continue psychiatric hospitalization for stabilization, to continue medication adjustment, we'll continue the same psychotropics today. We'll continue trying to transfer to [facility]. Brief supportive psychotherapy provided. ICD Code: F25.0 Assessment & Plan Estimated LOS: days Justification for Cont. Inpt. Patient most probably will decompensate out of an structure environment. Medication is still needs to be adjusted and he needs more stabilization. Request HC Surrog/Guard Advoc?: Dariel Newsome MD Aug 06, 2016 10:39
--- NOTE | 2016-08-06 10:48 | HHI.PR ---
Subjective Remarks Follow-up visit hypothyroidism, multiple fracture trauma, S/P left elbow ex-fix , UTI. Patient seen today. Reports he is doing well. Concerned about transferring to rehabilitation to early. Discussed with patient importance of rehabilitation with his condition. Patient has been seeing physical therapy and occupational therapy for range of motion exercises. Continues to be nonweightbearing as per orthopedic. Discussed rehabilitation consultation to help out with management. Denies any fevers, chills, dysuria. Denies pain and discomfort. Denies SOB/ dyspnea. Denies chest pain, palpitations, headaches, dizziness. Denies n/v/d. Objective Vitals Vital Signs Date Time Temp Pulse Resp B/P Pulse Ox O2 Delivery O2 Flow Rate FiO2 08/06/16 05:51 97.8 95 16 98/60 96 08/05/16 22:00 97.8 93 18 102/64 97 08/05/16 11:00 98.3 104 18 122/64 97 I/O 08/05/16 08/05/16 08/05/16 08/06/16 08/06/16 08/06/16 07:00 15:00 23:00 07:00 15:00 23:00 Intake Total 480 ml 220 ml Output Total 700 ml 1650 ml 1400 ml 700 ml Balance -700 ml -1170 ml -1400 ml -480 ml Intake Oral 480 ml 220 ml Output Urine Total 700 ml 1650 ml 1400 ml 700 ml # Voids 2 Imaging Last Impressions Wrist X-Ray 08/04/16 0000 Signed Impressions: Service Date/Time: Thursday, August 04, 2016 07:59 - CONCLUSION: Non- displaced fracture involving the distal radius and radiocarpal joint. Julius Barillas MD FACR Knee X-Ray 07/29/16 0000 Signed Impressions: Service Date/Time: Friday, July 29, 2016 10:14 - CONCLUSION: 1. Stable examination of the left knee. The nondisplaced left proximal fibular fracture has a stable appearance. 2. The patella fracture has undergone prior ORIF. There is stable articular step off at the superior pole posteriorly. Moses Buenrostro MD Femur X-Ray 07/29/16 0000 Signed Impressions: Service Date/Time: Friday, July 29, 2016 10:19 - CONCLUSION: Stable examination of the right femur in this patient post recent right femur ORIF for treatment of a intertrochanteric fracture in distal femoral diaphysis fracture. There is also a comminuted patella fracture present. Moses Buenrostro MD Elbow X-Ray 07/29/16 0000 Signed Impressions: Service Date/Time: Friday, July 29, 2016 10:37 - CONCLUSION: 1. Postsurgical changes as above. Robson Ghotra MD Abdomen X-Ray 07/29/16 0000 Signed Impressions: Service Date/Time: Friday, July 29, 2016 18:13 - CONCLUSION: Moderate stool burden suggesting constipation. No dilated loops of bowel. Bruno Brito Jr., MD Objective Remarks GENERAL: This is a well-nourished, well-developed patient, in no apparent distress. SKIN: No rashes, ecchymoses or lesions. Cool and dry. HEAD: Atraumatic. Normocephalic. No temporal or scalp tenderness. EYES: Pupils equal round and reactive. Extraocular motions intact. No scleral icterus. No injection or drainage. ENT: Nose without bleeding. Throat without erythema. Uvula midline. Airway patent. NECK: Trachea midline. No JVD or lymphadenopathy. Supple, nontender, no meningeal signs. CARDIOVASCULAR: Regular rate and rhythm without murmurs, gallops, or rubs. RESPIRATORY: Diminished bases. No wheezes, rales, or rhonchi. GASTROINTESTINAL: Abdomen soft, non-tender, nondistended. No hepato-splenomegaly , or palpable masses. No guarding. MUSCULOSKELETAL: Extremities without clubbing, cyanosis, bilateral lower extremity trace edema. Able to wiggle bilateral toes and move bilateral foot weakly. Left upper extremity with ex-fix. NEUROLOGICAL: Awake and alert. Flat affect. Oriented to self, and place. Sensory grossly within normal limits. Normal speech. Procedures s/p right femur IMN s/p exfix left elbow s/p ORIF left patella right patella fx A/P Problem List: (1) Schizoaffective disorder, bipolar type ICD Code: F25.0 Status: Acute (2) Femur fracture, right ICD Code: S72.91XA Status: Acute (3) Elbow fracture ICD Code: S42.409A Status: Acute (4) Patella fracture ICD Code: S82.009A Status: Acute (5) T12 vertebral fracture ICD Code: S22.089A Status: Acute (6) Hypothyroidism ICD Code: E03.9 Status: Chronic Assessment and Plan This a 50-year-old gentleman with a past medical history which includes hypothyroidism, bipolar and schizophrenia. Patient is status post trauma alert on 07/12/2016 secondary to suicide attempt patient jumped off a bridge onto railroad tracks. Patient sustained multiple fractures has been taken to the OR initially was in intensive care unit and intubated for airway protection as well as pain management. Patient was extubated 07/13/2016. Bipolar, schizophrenia - managed by psychiatry team Multiple surgical interventions including: Patient received 4 units PRBCs, 1 FFP and platelets while in the OR. s/p right femur IMN s/p exfix left elbow s/p ORIF left patella right patella fx nonop pelvic fxs Latest surgical intervention- Status post Left elbow ex fix, redo Per Ortho, nonoperative management of right patella and pelvic fractures. Patient will maintain nonweightbearing on left upper extremity/bilateral lower extremity with daily dressing changes to the right femur, left knee, pinned care twice a day of left elbow. Patient will also continue to follow-up with Dr. Gentile if discharged home. - Xarelto 10 mg daily - Physical therapy/occupational therapy - Physical therapy recommends specialty bed auto rolling. Pressure relief. - Air mattress bed with altered rolling - Pain management [place]'s 7.5/325 mg - May transferred to [place] rehabilitation if appropriate. Consulted rehabilitation medicine for further management. Hypothyroidism - continue levothyroxine 150mg daily DVT Prop Xarelto GI Prop Protonix Full code Discussed with patient, nursing, social work, and Sera Rosen Aug 06, 2016 10:48 Larry Madrid MD Aug 06, 2016 15:31
[2016-08-06] MEDS: ACETAMINOPHEN/HYDROcodone 325 MG/7.5 MG TAB PO PRN (15:46)
[2016-08-06 19:20] VITALS: BP 110/55; PULSE 90; RESP 18; TEMP 97.9; O2SAT 98
[2016-08-06] MEDS: QUEtiapine FUMARATE 100 MG TAB PO SCH (20:43)
[2016-08-07] MEDS: LEVOTHYROXINE SODIUM 150 MCG TAB PO SCH (05:38)
[2016-08-07 05:52] VITALS: BP 109/60; PULSE 87; RESP 18; TEMP 98.9; O2SAT 96
[2016-08-07] MEDS: CIPROFLOXACIN 250 MG TAB PO SCH ×2 (09:19→22:10)
[2016-08-07] MEDS: RIVAROXABAN 10 MG TAB PO SCH (09:19)
[2016-08-07] MEDS: PANTOPRAZOLE SOD 40 MG DELAYED RELEASE TAB PO SCH (09:19)
[2016-08-07] MEDS: DOCUSATE SODIUM 50 MG/SENNA 8.6 MG TAB PO SCH ×2 (09:19→22:10)
[2016-08-07] MEDS: ZIPRASIDONE HCL 40 MG CAP PO SCH ×2 (09:20→18:00)
--- NOTE | 2016-08-07 10:35 | HHI.PR ---
Subjective Remarks Follow-up visit hypothyroidism, multiple fracture trauma, S/P left elbow ex-fix , UTI. Patient seen today. Reports he is doing well. Denies any fevers, chills, dysuria. Denies pain and discomfort. Denies SOB/ dyspnea. Denies chest pain, palpitations, headaches, dizziness. Denies n/v/d. Objective Vitals Vital Signs Date Time Temp Pulse Resp B/P Pulse Ox O2 Delivery O2 Flow Rate FiO2 08/07/16 05:52 98.9 87 18 109/60 96 08/06/16 19:20 97.9 90 18 110/55 98 I/O 08/06/16 08/06/16 08/06/16 08/07/16 08/07/16 08/07/16 07:00 15:00 23:00 07:00 15:00 23:00 Intake Total 440 ml 960 ml Output Total 1400 ml 700 ml 200 ml 800 ml 800 ml Balance -1400 ml -260 ml 760 ml -800 ml -800 ml Intake Oral 440 ml 960 ml Output Urine Total 1400 ml 700 ml 200 ml 800 ml 800 ml # Voids 2 Imaging Last Impressions Wrist X-Ray 08/04/16 0000 Signed Impressions: Service Date/Time: Thursday, August 04, 2016 07:59 - CONCLUSION: Non- displaced fracture involving the distal radius and radiocarpal joint. Julius Barillas MD FACR Knee X-Ray 07/29/16 0000 Signed Impressions: Service Date/Time: Friday, July 29, 2016 10:14 - CONCLUSION: 1. Stable examination of the left knee. The nondisplaced left proximal fibular fracture has a stable appearance. 2. The patella fracture has undergone prior ORIF. There is stable articular step off at the superior pole posteriorly. Moses Buenrostro MD Femur X-Ray 07/29/16 0000 Signed Impressions: Service Date/Time: Friday, July 29, 2016 10:19 - CONCLUSION: Stable examination of the right femur in this patient post recent right femur ORIF for treatment of a intertrochanteric fracture in distal femoral diaphysis fracture. There is also a comminuted patella fracture present. Moses Buenrostro MD Elbow X-Ray 07/29/16 0000 Signed Impressions: Service Date/Time: Friday, July 29, 2016 10:37 - CONCLUSION: 1. Postsurgical changes as above. Robson Ghotra MD Abdomen X-Ray 07/29/16 0000 Signed Impressions: Service Date/Time: Friday, July 29, 2016 18:13 - CONCLUSION: Moderate stool burden suggesting constipation. No dilated loops of bowel. Bruno Brito Jr., MD Objective Remarks GENERAL: This is a well-nourished, well-developed patient, in no apparent distress. SKIN: No rashes, ecchymoses or lesions. Cool and dry. HEAD: Atraumatic. Normocephalic. No temporal or scalp tenderness. EYES: Pupils equal round and reactive. Extraocular motions intact. No scleral icterus. No injection or drainage. ENT: Nose without bleeding. Throat without erythema. Uvula midline. Airway patent. NECK: Trachea midline. No JVD or lymphadenopathy. Supple, nontender, no meningeal signs. CARDIOVASCULAR: Regular rate and rhythm without murmurs, gallops, or rubs. RESPIRATORY: Diminished bases. No wheezes, rales, or rhonchi. GASTROINTESTINAL: Abdomen soft, non-tender, nondistended. No hepato-splenomegaly , or palpable masses. No guarding. MUSCULOSKELETAL: Extremities without clubbing, cyanosis, bilateral lower extremity trace edema. Able to wiggle bilateral toes and move bilateral foot weakly. Left upper extremity with ex-fix. NEUROLOGICAL: Awake and alert. Flat affect. Oriented to self, and place. Sensory grossly within normal limits. Normal speech. Procedures s/p right femur IMN s/p exfix left elbow s/p ORIF left patella right patella fx A/P Problem List: (1) Schizoaffective disorder, bipolar type ICD Code: F25.0 Status: Acute (2) Femur fracture, right ICD Code: S72.91XA Status: Acute (3) Elbow fracture ICD Code: S42.409A Status: Acute (4) Patella fracture ICD Code: S82.009A Status: Acute (5) T12 vertebral fracture ICD Code: S22.089A Status: Acute (6) Hypothyroidism ICD Code: E03.9 Status: Chronic Assessment and Plan This a 50-year-old gentleman with a past medical history which includes hypothyroidism, bipolar and schizophrenia. Patient is status post trauma alert on 07/12/2016 secondary to suicide attempt patient jumped [place] a bridge [place] railroad tracks. Patient sustained multiple fractures has been taken to the OR initially was in intensive care unit and intubated for airway protection as well as pain management. Patient was extubated 07/13/2016. Bipolar, schizophrenia - managed by psychiatry team Multiple surgical interventions including: Patient received 4 units PRBCs, 1 FFP and platelets while in the OR. s/p right femur IMN s/p exfix left elbow s/p ORIF left patella right patella fx nonop pelvic fxs Latest surgical intervention- Status post Left elbow ex fix Per Ortho, nonoperative management of right patella and pelvic fractures. Patient will maintain nonweightbearing on left upper extremity/bilateral lower extremity with daily dressing changes to the right femur, left knee, pinned care twice a day of left elbow. Patient will also continue to follow-up with Dr. Gentile if discharged home. - Xarelto 10 mg daily - Continue Physical therapy/occupational therapy - Physical therapy recommends specialty bed auto rolling. Pressure relief. - Air mattress bed with altered rolling - Pain management [place]'s 7.5/325 mg - May transferred to [place] rehabilitation if appropriate. Consulted rehabilitation medicine for further management. - Continue wound care as per Ortho recommendation. Hypothyroidism - continue levothyroxine 150mg daily DVT Prop Xarelto GI Prop Protonix Full code Discussed with patient, nursing Written by Sera Jameson, acting as scribe for Dr. Madrid on 08/07/16 at 10:16. The documentation accurately reflects the work performed [id number] by me on at 16:26. Problem Qualifiers (1) Femur fracture, right: (2) Elbow fracture: (3) T12 vertebral fracture: Sera Brandon Aug 07, 2016 10:35 Larry Madrid MD Aug 07, 2016 16:26
[2016-08-07] MEDS: LITHIUM CARBONATE 300 MG CAP PO SCH ×2 (10:38→22:11)
--- NOTE | 2016-08-07 11:41 | PD.CONS ---
[facility] Service Rehabilitation Medicine Consult Requested By Dr. Madrid Reason for Consult Comprehensive rehabilitation evaluation. Primary Care Physician Unknown History of Present Illness Papo Washington is a 40-year-old right-hand dominant male admitted [facility] 07/25/16 after sustaining multiple fractures 07/12/16 after reportedly jumping off a bridge into a railroad track. He sustained multiple injuries including right femur fracture for which she underwent IM nail, right patella fracture currently immobilized, left patella fracture for which she underwent ORIF, left proximal radius and ulnar fracture with dislocation status post external fixator placement and pelvic fracture. Head CT showed left sphenoid fracture. CT the thoracic spine showed T12 compression fracture and TLSO is required when out of bed. Patient is being managed on med psych unit per psychiatry. Seroquel is being adjusted. Review of Systems Constitutional: COMPLAINS OF: Fatigue Eyes: DENIES: Diplopia Ears, nose, mouth, throat: DENIES: Throat pain Respiratory: DENIES: Shortness of breath Cardiovascular: DENIES: Chest pain Gastrointestinal: DENIES: Abdominal pain Musculoskeletal: COMPLAINS OF: Joint pain, Muscle aches, Stiffness Integumentary: DENIES: Rash Neurologic: DENIES: Headache, Speech Problems Psychiatric: DENIES: Confusion Past Family Social History Allergies: Coded Allergies: Haldol (Verified Allergy, Unknown, 07/13/16) Past Medical History Hypothyroidism Bipolar disorder Schizophrenia Depression Past Surgical History As above Current Medications Current Medications Medications (Trade) Dose Ordered Sig/Jonathan Route Start Time Stop Time Status Last Admin (Ativan) 1 mg Q6H PRN PO 07/25/16 20:30 07/29/16 21:48 (Ativan Inj) 1 mg Q6H PRN IM 07/25/16 20:30 (Tylenol) 650 mg Q4H PRN PO 07/25/16 20:30 07/28/16 06:12 (Milk Of Magnesia Liq) 30 ml DAILY PRN PO 07/25/16 20:30 07/31/16 13:14 (Mag-Al Plus Susp Liq) 30 ml Q6H PRN PO 07/25/16 20:30 (Synthroid) 150 mcg DAILY@0600 PO 07/26/16 11:15 08/07/16 05:38 (Chloraseptic Alexandre) 1 lozenge Q4HR PRN BUCCAL 07/26/16 11:15 08/02/16 08:55 (Protonix) 40 mg DAILY PO 07/26/16 11:15 08/07/16 09:19 (Xarelto) 10 mg DAILY PO 07/26/16 11:15 08/07/16 09:19 (Rumsey Carbonate) 600 mg Q12HR PO 07/28/16 12:00 08/07/16 10:38 ([place] 7.5-325 Mg) 1 tab Q6H PRN PO 07/28/16 12:30 08/06/16 15:46 (Cipro) 250 mg Q12HR PO 08/02/16 09:00 08/16/16 08:59 08/07/16 09:19 (SEROquel) 200 mg HS PO 08/03/16 21:00 08/06/16 20:43 (Geodon) 80 mg BID@09,18 PO 08/03/16 18:00 08/07/16 09:20 (Colace) 100 mg BID PRN PO 08/04/16 05:15 (Mary-Colace) 2 tab BID PO 08/04/16 09:00 08/07/16 09:19 Family History Father: [place] age 60 Social History Prior to admission patient lived with his in [place], [place]. 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 Exam I&O / VS 08/06/16 08/06/16 08/07/16 15:00 23:00 07:00 Intake Total 440 ml 960 ml Output Total 700 ml 200 ml 800 ml Balance -260 ml 760 ml -800 ml Intake Oral 440 ml 960 ml Output Urine Total 700 ml 200 ml 800 ml Vital Signs Date Time Temp Pulse Resp B/P Pulse Ox O2 Delivery O2 Flow Rate FiO2 08/07/16 05:52 98.9 87 18 109/60 96 08/06/16 19:20 97.9 90 18 110/55 98 General: No acute distress, Other (Awake and alert, resting comfortably in bed , affect blunted, limited eye contact) Respiratory: Lungs CTA, Non-labored respirations, BS equal Gastrointestinal: Positive Bowel Sounds, Non-Distended, Non-Tender Cardiovascular: Regular Rhythm Skin: Other (No rash noted) Psychiatric: Cooperative Orientation: oriented to Self, oriented to Place, oriented to Time, oriented to Situation Neurologic: Cranial Nerves (Intact), Speech (No dysarthria or word finding difficulties) Motor: Right Upper Extremity (4+/5), Left Upper Extremity (external fixator is in place and drug inspector is 4+/5), Right Lower Extremity (moves distally to command; CKS in place), Left Lower Extremity (moves distally to command; CKS in place) Sensory Grossly intact to light touch in the distal upper and lower extremities DTRs: Normal (Deferred) Assessment and Plan Diagnosis: (1) Femur fracture, right (2) Right patella fracture (3) Left radial fracture (4) Left patella fracture (5) Elbow dislocation (6) Elbow fracture (7) T12 vertebral fracture (8) Pelvic fracture (9) Impaired mobility and ADLs (10) Schizoaffective disorder, bipolar type (11) Suicide attempt Assessment 1. Suicide attempt 07/12/16 with multiple fractures including right femur status post IM nail, right patella treated nonsurgically with immobilization, left proximal radius and ulna fracture dislocation/elbow fracture dislocation status post external fixator placement, left patella fracture status post ORIF and pelvic fracture 2. T12 compression fracture 3. Hypothyroidism 4. Schizoaffective disorder, Bipolar type Plan 1. Mobilize OOB to stretcher chair with Roho cushion and NWB bilateral LE and left LE and TLSO 2. OT for wheelchair evaluation 3. Will need clarification from case management on assistance available at home. works during the day and patient will need assistance until WB advanced. 4. Will clarify with Ortho whether estimate on advancing WB status is possible at this time. 5. Turn and reposition q 2 hours to protect skin 6. Roho cushion ordered for when up to sitting. 7. Will follow while hospitalized and at discharge as appropriate Thanks for this consult. Mireya Rodriguez MD Aug 07, 2016 11:41
--- NOTE | 2016-08-07 12:59 | HHI.PYPN ---
Subjective Remarks Patient was seen for psychiatric reevaluation today along with nurse in charge Dominic. Patient was communicative today, he reports good mood, visible full range of affect, he says that he is motivated to be discharged to rehabilitation and continue with the process of recuperation. Patient states that he understands the importance of following medical recommendations and be compliant with medication. He says that once discharged his priority is get better, and get back his life, he is not planning to go back to work immediately. He denies suicidal and homicidal ideation. He denies visual and auditory hallucinations. No delusions of reference, thought controlling, paranoia, delusions seems to be present at this moment. Moderate poverty of speech and thought blocking is is still present. His , Erick Washington, present during this reevaluation and also seen along, expressed her happiness and her hope about the improvement of the patient. She says that she is ready to take him back home after rehabilitation. She is just a little concerned about the outpatient psychiatric care. She agrees with transfer to inpatient [facility] rehabilitation department. Review of Systems Other No somatic symptoms Objective Alert: Yes [place]: Person, Place, Date, Situation Mood: Calm Affect: Euthymic Memory Intact: Immediate, Recent (mildly impaired), Remote Hallucinations: Other (patient denied any active auditory or visual hallucinations) Delusions: No Delusion Type: Other (no obvious delusional material voiced) Suicidal: Ideation (patient denied any suicidal ideation or plan at this time) Homicidal: Ideation (denies any homicidal ideation or plan) Insight/Judgement Improved Vitals/IOs Vital Signs Date Time Temp Pulse Resp B/P Pulse Ox O2 Delivery O2 Flow Rate FiO2 08/07/16 05:52 98.9 87 18 109/60 96 Intake and Output 08/06/16 08/06/16 08/07/16 08:00 16:00 00:00 Intake Total 440 ml 960 ml Output Total 700 ml 200 ml Balance -260 ml 760 ml Assessment & Plan Problem List: (1) Schizoaffective disorder, bipolar type Assessment & Plan: Today patient shows some improvement in his mood and affect , mild to moderate poverty of speech and thought blocking still present. But not emily psychosis observed. He denies suicidal or homicidal ideation, he denies visual and auditory hallucinations. Will increase Seroquel to 300 mg at bedtime to help with negative psychotic symptoms and also with sleep. ICD Code: F25.0 Assessment & Plan Estimated LOS: days Justification for Cont. Inpt. The patient has a very high probability to the competency out of an structure environment and he needs more medication management of his psychosis. Request HC Surrog/Guard Advoc?: No Dariel Sanford MD Aug 07, 2016 12:59
[2016-08-07] MEDS: ACETAMINOPHEN/HYDROcodone 325 MG/7.5 MG TAB PO PRN (15:06)
[2016-08-07 19:01] VITALS: BP 110/66; PULSE 95; RESP 18; TEMP 97.7; O2SAT 96
[2016-08-07] MEDS: QUEtiapine FUMARATE 300 MG TAB PO SCH (22:10)
[2016-08-07 23:59] VITALS: BP 105/60; PULSE 90; RESP 16; TEMP 98.3; O2SAT 94
[2016-08-08 06:33] VITALS: BP 102/56; PULSE 95; RESP 14; TEMP 98.6; O2SAT 93
[2016-08-08] MEDS: LEVOTHYROXINE SODIUM 150 MCG TAB PO SCH (06:53)
[2016-08-08] MEDS: PANTOPRAZOLE SOD 40 MG DELAYED RELEASE TAB PO SCH (08:47)
[2016-08-08] MEDS: DOCUSATE SODIUM 50 MG/SENNA 8.6 MG TAB PO SCH ×2 (08:47→20:26)
[2016-08-08] MEDS: CIPROFLOXACIN 250 MG TAB PO SCH ×2 (08:47→20:26)
[2016-08-08] MEDS: LITHIUM CARBONATE 300 MG CAP PO SCH ×2 (08:47→20:26)
[2016-08-08] MEDS: RIVAROXABAN 10 MG TAB PO SCH (08:47)
[2016-08-08] MEDS: ZIPRASIDONE HCL 40 MG CAP PO SCH ×2 (08:47→17:30)
--- NOTE | 2016-08-08 11:43 | HHI.PYPN ---
Subjective Remarks Patient visited today for evaluation alone with nurse Simmons, he was found sleeping, easily arousable, reports good mood, better sleep at night, good appetite, good motivation to continue his medical treatment and rehabilitation program. He denies suicidal and homicidal ideation, he denies visual and auditory hallucinations, he denies ideas of reference, he denies thought controlling, he denies paranoia and delusions. She is fully oriented 3. He has been medication compliant, as per nurse doing much better since yesterday. Review of Systems Other No somatic complaint Objective Alert: Yes [place]: Person, Place, Date, Situation Mood: Calm Affect: Euthymic Memory Intact: Immediate, Recent (mildly impaired), Remote Hallucinations: Other (patient denied any active auditory or visual hallucinations) Delusions: No Delusion Type: Other (no obvious delusional material voiced) Suicidal: Ideation (patient denied any suicidal ideation or plan at this time) Homicidal: Ideation (denies any homicidal ideation or plan) Insight/Judgement Good Vitals/IOs Vital Signs Date Time Temp Pulse Resp B/P Pulse Ox O2 Delivery O2 Flow Rate FiO2 08/08/16 06:33 98.6 95 14 102/56 93 Intake and Output 08/07/16 08/07/16 08/08/16 08:00 16:00 00:00 Intake Total 240 ml 360 ml Output Total 800 ml 800 ml Balance -800 ml -560 ml 360 ml Assessment & Plan Problem List: (1) Schizoaffective disorder, bipolar type Assessment & Plan: Patient continues to show good response to psychotropics and psychotherapy, patient doesn't report any psychotic or mood symptoms, he does not seem to be paranoid, delusional, responding to internal stimuli, however thought blocking and poverty of speech still present. Will continue the process of hospitalization for stabilization and to coordinate a safe discharge. ICD Code: F25.0 Assessment & Plan Estimated LOS: days Justification for Cont. Inpt. Patient is to continue psychiatric hospitalization for stabilization Request HC Surrog/Guard Advoc?: Dariel Newsome MD Aug 08, 2016 11:43
--- NOTE | 2016-08-08 14:02 | HHI.PR ---
Subjective Remarks Follow-up visit hypothyroidism, multiple fracture trauma, S/P left elbow ex-fix , UTI. Patient seen today. Reports he is doing well. Has not been out of bed due to fractures. Denies any fevers, chills, dysuria. Denies pain and discomfort. Denies SOB/ dyspnea. Denies chest pain, palpitations, headaches, dizziness. Denies n/v/d. Objective Vitals Vital Signs Date Time Temp Pulse Resp B/P Pulse Ox O2 Delivery O2 Flow Rate FiO2 08/08/16 06:33 98.6 95 14 102/56 93 08/07/16 23:59 98.3 90 16 105/60 94 08/07/16 19:01 97.7 95 18 110/66 96 I/O 08/07/16 08/07/16 08/07/16 08/08/16 08/08/16 08/08/16 07:00 15:00 23:00 07:00 15:00 23:00 Intake Total 240 ml 360 ml 360 ml 360 ml Output Total 800 ml 800 ml Balance -800 ml -560 ml 360 ml 360 ml 360 ml Intake Oral 240 ml 360 ml 360 ml 360 ml Output Urine Total 800 ml 800 ml # Voids 0 0 Imaging Last Impressions Wrist X-Ray 08/04/16 0000 Signed Impressions: Service Date/Time: Thursday, August 04, 2016 07:59 - CONCLUSION: Non- displaced fracture involving the distal radius and radiocarpal joint. Julius Barillas MD FACR Knee X-Ray 07/29/16 0000 Signed Impressions: Service Date/Time: Friday, July 29, 2016 10:14 - CONCLUSION: 1. Stable examination of the left knee. The nondisplaced left proximal fibular fracture has a stable appearance. 2. The patella fracture has undergone prior ORIF. There is stable articular step off at the superior pole posteriorly. Moses Buenrostro MD Femur X-Ray 07/29/16 0000 Signed Impressions: Service Date/Time: Friday, July 29, 2016 10:19 - CONCLUSION: Stable examination of the right femur in this patient post recent right femur ORIF for treatment of a intertrochanteric fracture in distal femoral diaphysis fracture. There is also a comminuted patella fracture present. Moses Buenrostro MD Elbow X-Ray 07/29/16 0000 Signed Impressions: Service Date/Time: Friday, July 29, 2016 10:37 - CONCLUSION: 1. Postsurgical changes as above. Robson Ghotra MD Abdomen X-Ray 07/29/16 0000 Signed Impressions: Service Date/Time: Friday, July 29, 2016 18:13 - CONCLUSION: Moderate stool burden suggesting constipation. No dilated loops of bowel. Bruno Brito Jr., MD Objective Remarks GENERAL: This is a well-nourished, well-developed patient, in no apparent distress. SKIN: No rashes, ecchymoses or lesions. Cool and dry. HEAD: Atraumatic. Normocephalic. No temporal or scalp tenderness. EYES: Pupils equal round and reactive. Extraocular motions intact. No scleral icterus. No injection or drainage. ENT: Nose without bleeding. Throat without erythema. Uvula midline. Airway patent. NECK: Trachea midline. No JVD or lymphadenopathy. Supple, nontender, no meningeal signs. CARDIOVASCULAR: Regular rate and rhythm without murmurs, gallops, or rubs. RESPIRATORY: Diminished bases. No wheezes, rales, or rhonchi. GASTROINTESTINAL: Abdomen soft, non-tender, nondistended. No hepato-splenomegaly , or palpable masses. No guarding. MUSCULOSKELETAL: Extremities without clubbing, cyanosis, bilateral lower extremity trace edema. Able to wiggle bilateral toes and move bilateral foot weakly. Left upper extremity with ex-fix. NEUROLOGICAL: Awake and alert. Flat affect. Oriented to self, and place. Sensory grossly within normal limits. Normal speech. Procedures s/p right femur IMN s/p exfix left elbow s/p ORIF left patella right patella fx A/P Problem List: (1) Schizoaffective disorder, bipolar type ICD Code: F25.0 Status: Acute (2) Femur fracture, right ICD Code: S72.91XA Status: Acute (3) Elbow fracture ICD Code: S42.409A Status: Acute (4) Patella fracture ICD Code: S82.009A Status: Acute (5) T12 vertebral fracture ICD Code: S22.089A Status: Acute (6) Hypothyroidism ICD Code: E03.9 Status: Chronic Assessment and Plan This a 50-year-old gentleman with a past medical history which includes hypothyroidism, bipolar and schizophrenia. Patient is status post trauma alert on 07/12/2016 secondary to suicide attempt patient jumped off a bridge onto railroad tracks. Patient sustained multiple fractures has been taken to the OR initially was in intensive care unit and intubated for airway protection as well as pain management. Patient was extubated 07/13/2016. Bipolar, schizophrenia - managed by psychiatry team Multiple surgical interventions including: Patient received 4 units PRBCs, 1 FFP and platelets while in the OR. s/p right femur IMN s/p exfix left elbow s/p ORIF left patella right patella fx nonop pelvic fxs Latest surgical intervention- Status post Left elbow ex fix Per Ortho, nonoperative management of right patella and pelvic fractures. Patient will maintain nonweightbearing on left upper extremity/bilateral lower extremity with daily dressing changes to the right femur, left knee, pinned care twice a day of left elbow. Patient will also continue to follow-up with Dr. Gentile if discharged home. - Xarelto 10 mg daily - Continue Physical therapy/occupational therapy - Physical therapy recommends specialty bed auto rolling. Pressure relief. - Air mattress bed with altered rolling - Pain management [place]'s 7.5/325 mg - May transferred to [place] rehabilitation if appropriate. Consulted rehabilitation medicine for further management. - Continue wound care as per Ortho recommendation. - TLSO brace ordered per recommendation. Hypothyroidism - continue levothyroxine 150mg daily DVT Prop Xarelto GI Prop Protonix Full code Discussed with patient, nursing Written by Sera Jameson, acting as scribe for Dr. Madrid on 08/08/16 at 09:20. The documentation accurately reflects the work performed [id number] by me on at 16:53. Problem Qualifiers (1) Femur fracture, right: (2) Elbow fracture: (3) T12 vertebral fracture: Sera Brandon Aug 08, 2016 14:02 Larry Madrid MD Aug 08, 2016 16:53
[2016-08-08 20:09] VITALS: BP 103/62; PULSE 103; RESP 14; TEMP 97.9; O2SAT 96
[2016-08-08] MEDS: QUEtiapine FUMARATE 300 MG TAB PO SCH (20:26)
[2016-08-09 06:16] VITALS: BP 107/68; PULSE 91; RESP 16; TEMP 97.8; O2SAT 97
[2016-08-09] MEDS: LEVOTHYROXINE SODIUM 150 MCG TAB PO SCH (06:22)
[2016-08-09] MEDS: LITHIUM CARBONATE 300 MG CAP PO SCH ×2 (08:19→21:14)
[2016-08-09] MEDS: PANTOPRAZOLE SOD 40 MG DELAYED RELEASE TAB PO SCH (08:19)
[2016-08-09] MEDS: CIPROFLOXACIN 250 MG TAB PO SCH ×2 (08:19→21:14)
[2016-08-09] MEDS: RIVAROXABAN 10 MG TAB PO SCH (08:19)
[2016-08-09] MEDS: ZIPRASIDONE HCL 40 MG CAP PO SCH ×2 (08:19→17:32)
[2016-08-09] MEDS: DOCUSATE SODIUM 50 MG/SENNA 8.6 MG TAB PO SCH ×2 (08:19→21:14)
--- NOTE | 2016-08-09 09:31 | HHI.PYPN ---
Subjective Remarks Patient was seen and discussed with the support staff. Patient did not complain anything. He claimed that he has been feeling better. He slept well. He denies any suicidal and/or homicidal ideation intentions or plan. No behavior or management problem reported. He is compliant in taking medication. No side effects were complained. Advised to continue with the same treatment Review of Systems Psychiatric: COMPLAINS OF: Mood changes, Depression Objective Alert: Yes [place]: Person, Place, Date, Situation Mood: Calm Affect: Euthymic Memory Intact: Immediate, Recent (mildly impaired), Remote Hallucinations: Other (patient denied any active auditory or visual hallucinations) Delusions: No Delusion Type: Other (no obvious delusional material voiced) Suicidal: Ideation (patient denied any suicidal ideation or plan at this time) Homicidal: Ideation (denies any homicidal ideation or plan) Insight/Judgement Fair to limited Vitals/IOs Vital Signs Date Time Temp Pulse Resp B/P Pulse Ox O2 Delivery O2 Flow Rate FiO2 08/09/16 06:16 97.8 91 16 107/68 97 Intake and Output 08/08/16 08/08/16 08/09/16 08:00 16:00 00:00 Intake Total 360 ml 360 ml 360 ml Output Total 600 ml Balance 360 ml 360 ml -240 ml Assessment & Plan Problem List: (1) Schizoaffective disorder, bipolar type ICD Code: F25.0 Assessment & Plan Estimated LOS: days Justification for Cont. Inpt. Patient needs to be in the hospital for monitoring of the medication. To stabilize the patient Request HC Surrog/Guard Advoc?: No Konrad Jacinto MD Aug 09, 2016 09:31
--- NOTE | 2016-08-09 11:37 | HHI.PR ---
Subjective Remarks Follow-up visit hypothyroidism, multiple fracture trauma, S/P left elbow ex-fix , UTI. Patient seen today. Reports he is doing well. Smiling appears to be with better demeanor. He was out of bed yesterday sitting up in a chair with TLSO. Denies any fevers, chills, dysuria. Denies pain and discomfort. Denies SOB/ dyspnea. Denies chest pain, palpitations, headaches, dizziness. Denies n/v /d. Objective Vitals Vital Signs Date Time Temp Pulse Resp B/P Pulse Ox O2 Delivery O2 Flow Rate FiO2 08/09/16 06:16 97.8 91 16 107/68 97 08/08/16 20:09 97.9 103 14 103/62 96 I/O 08/08/16 08/08/16 08/08/16 08/09/16 08/09/16 08/09/16 07:00 15:00 23:00 07:00 15:00 23:00 Intake Total 360 ml 360 ml 360 ml 360 ml 240 ml Output Total 600 ml 700 ml Balance 360 ml 360 ml -240 ml -340 ml 240 ml Intake Oral 360 ml 360 ml 360 ml 360 ml 240 ml Output Urine Total 600 ml 700 ml # Voids 0 # Bowel Movements 0 0 Imaging Last Impressions Wrist X-Ray 08/04/16 0000 Signed Impressions: Service Date/Time: Thursday, August 04, 2016 07:59 - CONCLUSION: Non- displaced fracture involving the distal radius and radiocarpal joint. Julius Barillas MD FACR Knee X-Ray 07/29/16 0000 Signed Impressions: Service Date/Time: Friday, July 29, 2016 10:14 - CONCLUSION: 1. Stable examination of the left knee. The nondisplaced left proximal fibular fracture has a stable appearance. 2. The patella fracture has undergone prior ORIF. There is stable articular step off at the superior pole posteriorly. Moses Buenrostro MD Femur X-Ray 07/29/16 0000 Signed Impressions: Service Date/Time: Friday, July 29, 2016 10:19 - CONCLUSION: Stable examination of the right femur in this patient post recent right femur ORIF for treatment of a intertrochanteric fracture in distal femoral diaphysis fracture. There is also a comminuted patella fracture present. Moses Buenrostro MD Elbow X-Ray 07/29/16 0000 Signed Impressions: Service Date/Time: Friday, July 29, 2016 10:37 - CONCLUSION: 1. Postsurgical changes as above. Robson Ghotra MD Abdomen X-Ray 07/29/16 0000 Signed Impressions: Service Date/Time: Friday, July 29, 2016 18:13 - CONCLUSION: Moderate stool burden suggesting constipation. No dilated loops of bowel. Bruno Brito Jr., MD Objective Remarks GENERAL: This is a well-nourished, well-developed patient, in no apparent distress. SKIN: No rashes, ecchymoses or lesions. Cool and dry. HEAD: Atraumatic. Normocephalic. No temporal or scalp tenderness. EYES: Pupils equal round and reactive. Extraocular motions intact. No scleral icterus. No injection or drainage. ENT: Nose without bleeding. Throat without erythema. Uvula midline. Airway patent. NECK: Trachea midline. No JVD or lymphadenopathy. Supple, nontender, no meningeal signs. CARDIOVASCULAR: Regular rate and rhythm without murmurs, gallops, or rubs. RESPIRATORY: Diminished bases. No wheezes, rales, or rhonchi. GASTROINTESTINAL: Abdomen soft, non-tender, nondistended. No hepato-splenomegaly , or palpable masses. No guarding. MUSCULOSKELETAL: Extremities without clubbing, cyanosis, bilateral lower extremity trace edema. Able to wiggle bilateral toes and move bilateral foot weakly. Left upper extremity with ex-fix. NEUROLOGICAL: Awake and alert. Flat affect. - Improved smiling today. Oriented to self, and place. Sensory grossly within normal limits. Normal speech. Procedures s/p right femur IMN s/p exfix left elbow s/p ORIF left patella right patella fx A/P Problem List: (1) Schizoaffective disorder, bipolar type ICD Code: F25.0 Status: Acute (2) Femur fracture, right ICD Code: S72.91XA Status: Acute (3) Elbow fracture ICD Code: S42.409A Status: Acute (4) Patella fracture ICD Code: S82.009A Status: Acute (5) T12 vertebral fracture ICD Code: S22.089A Status: Acute (6) Hypothyroidism ICD Code: E03.9 Status: Chronic Assessment and Plan This a 50-year-old gentleman with a past medical history which includes hypothyroidism, bipolar and schizophrenia. Patient is status post trauma alert on 07/12/2016 secondary to suicide attempt patient jumped off a bridge onto railroad tracks. Patient sustained multiple fractures has been taken to the OR initially was in intensive care unit and intubated for airway protection as well as pain management. Patient was extubated 07/13/2016. Bipolar, schizophrenia - managed by psychiatry team Multiple surgical interventions including: Patient received 4 units PRBCs, 1 FFP and platelets while in the OR. s/p right femur IMN s/p exfix left elbow s/p ORIF left patella right patella fx nonop pelvic fxs Latest surgical intervention- Status post Left elbow ex fix Per Ortho, nonoperative management of right patella and pelvic fractures. Patient will maintain nonweightbearing on left upper extremity/bilateral lower extremity with daily dressing changes to the right femur, left knee, pinned care twice a day of left elbow. Patient will also continue to follow-up with Dr. Gentile if discharged home. - Xarelto 10 mg daily - Continue Physical therapy/occupational therapy - Physical therapy recommends specialty bed auto rolling. Pressure relief. - Air mattress bed with altered rolling - Pain management [place]'s 7.5/325 mg - May transferred to [place] rehabilitation if appropriate. Consulted rehabilitation medicine for further management. - Continue wound care as per Ortho recommendation. - TLSO brace ordered per recommendation. Continue to encourage OOB sitting up Hypothyroidism - continue levothyroxine 150mg daily DVT Prop Xarelto GI Prop Protonix Full code Discussed with patient, nursing Written by Sera Jameson, acting as scribe for Dr. Madrid on 08/09/16 at 09:30. The documentation accurately reflects the work performed [id number] by me on at 14:39. Problem Qualifiers (1) Femur fracture, right: (2) Elbow fracture: (3) T12 vertebral fracture: Sera Brandon Aug 09, 2016 11:37 Larry Madrid MD Aug 09, 2016 14:42
[2016-08-09 18:48] VITALS: BP 94/61; PULSE 89; RESP 16; TEMP 98.2; O2SAT 96
[2016-08-09] MEDS: MAGNESIUM HYDROXIDE SUSP 30 ML CUP PO PRN (21:14)
[2016-08-09] MEDS: QUEtiapine FUMARATE 300 MG TAB PO SCH (21:14)
[2016-08-10] MEDS: LEVOTHYROXINE SODIUM 150 MCG TAB PO SCH (05:44)
[2016-08-10 06:14] VITALS: BP 111/64; PULSE 96; RESP 14; TEMP 97.4; O2SAT 96
[2016-08-10] MEDS: CIPROFLOXACIN 250 MG TAB PO SCH ×2 (08:08→21:23)
[2016-08-10] MEDS: RIVAROXABAN 10 MG TAB PO SCH (08:08)
[2016-08-10] MEDS: LITHIUM CARBONATE 300 MG CAP PO SCH ×2 (08:08→21:24)
[2016-08-10] MEDS: ZIPRASIDONE HCL 40 MG CAP PO SCH ×2 (08:08→17:13)
[2016-08-10] MEDS: DOCUSATE SODIUM 50 MG/SENNA 8.6 MG TAB PO SCH ×2 (08:08→21:24)
[2016-08-10] MEDS: PANTOPRAZOLE SOD 40 MG DELAYED RELEASE TAB PO SCH (08:08)
--- NOTE | 2016-08-10 10:29 | HHI.PR ---
Subjective Remarks F/U trauma. No new complaints still no BM passing gas dw RN Objective Vitals Vital Signs Date Time Temp Pulse Resp B/P Pulse Ox O2 Delivery O2 Flow Rate FiO2 08/10/16 06:14 97.4 96 14 111/64 96 08/09/16 18:48 98.2 89 16 94/61 96 I/O 08/09/16 08/09/16 08/09/16 08/10/16 08/10/16 08/10/16 07:00 15:00 23:00 07:00 15:00 23:00 Intake Total 360 ml 720 ml 980 ml 500 ml 240 ml Output Total 700 ml 750 ml Balance -340 ml 720 ml 980 ml -250 ml 240 ml Intake Oral 360 ml 720 ml 980 ml 500 ml 240 ml Output Urine Total 700 ml 750 ml # Voids 2 2 # Bowel Movements 0 1 1 0 Imaging Last Impressions Wrist X-Ray 08/04/16 0000 Signed Impressions: Service Date/Time: Thursday, August 04, 2016 07:59 - CONCLUSION: Non- displaced fracture involving the distal radius and radiocarpal joint. Julius Barillas MD FACR Knee X-Ray 07/29/16 0000 Signed Impressions: Service Date/Time: Friday, July 29, 2016 10:14 - CONCLUSION: 1. Stable examination of the left knee. The nondisplaced left proximal fibular fracture has a stable appearance. 2. The patella fracture has undergone prior ORIF. There is stable articular step off at the superior pole posteriorly. Moses Buenrostro MD Femur X-Ray 07/29/16 0000 Signed Impressions: Service Date/Time: Friday, July 29, 2016 10:19 - CONCLUSION: Stable examination of the right femur in this patient post recent right femur ORIF for treatment of a intertrochanteric fracture in distal femoral diaphysis fracture. There is also a comminuted patella fracture present. Moses Buenrostro MD Elbow X-Ray 07/29/16 0000 Signed Impressions: Service Date/Time: Friday, July 29, 2016 10:37 - CONCLUSION: 1. Postsurgical changes as above. Robson Ghotra MD Abdomen X-Ray 07/29/16 0000 Signed Impressions: Service Date/Time: Friday, July 29, 2016 18:13 - CONCLUSION: Moderate stool burden suggesting constipation. No dilated loops of bowel. Bruno Brito Jr., MD Objective Remarks GENERAL: This is a well-nourished, well-developed patient, in no apparent distress. SKIN: No rashes, ecchymoses or lesions. Cool and dry. HEAD: Atraumatic. Normocephalic. No temporal or scalp tenderness. EYES: Pupils equal round and reactive. Extraocular motions intact. No scleral icterus. No injection or drainage. ENT: Nose without bleeding. Throat without erythema. Uvula midline. Airway patent. NECK: Trachea midline. No JVD or lymphadenopathy. Supple, nontender, no meningeal signs. CARDIOVASCULAR: Regular rate and rhythm without murmurs, gallops, or rubs. RESPIRATORY: Diminished bases. No wheezes, rales, or rhonchi. GASTROINTESTINAL: Abdomen soft, non-tender, nondistended. No guarding. MUSCULOSKELETAL: Extremities without clubbing, cyanosis, bilateral lower extremity trace edema. Able to wiggle bilateral toes and move bilateral foot weakly. Left upper extremity with ex-fix. NEUROLOGICAL: Awake and alert. Flat affect. - Improved smiled today. Oriented to self, and place. Sensory grossly within normal limits. Normal speech. Procedures s/p right femur IMN s/p exfix left elbow s/p ORIF left patella right patella fx A/P Problem List: (1) Schizoaffective disorder, bipolar type ICD Code: F25.0 Status: Acute (2) Femur fracture, right ICD Code: S72.91XA Status: Acute (3) Elbow fracture ICD Code: S42.409A Status: Acute (4) Patella fracture ICD Code: S82.009A Status: Acute (5) T12 vertebral fracture ICD Code: S22.089A Status: Acute (6) Hypothyroidism ICD Code: E03.9 Status: Chronic Assessment and Plan This a 50-year-old gentleman with a past medical history which includes hypothyroidism, bipolar and schizophrenia. Patient is status post trauma alert on 07/12/2016 secondary to suicide attempt patient jumped off a bridge onto railroad tracks. Patient sustained multiple fractures has been taken to the OR initially was in intensive care unit and intubated for airway protection as well as pain management. Patient was extubated 07/13/2016. Bipolar, schizophrenia - managed by psychiatry team Multiple surgical interventions including: Patient received 4 units PRBCs, 1 FFP and platelets while in the OR. s/p right femur IMN s/p exfix left elbow s/p ORIF left patella right patella fx nonop pelvic fxs Latest surgical intervention- Status post Left elbow ex fix Per Ortho, nonoperative management of right patella and pelvic fractures. Patient will maintain nonweightbearing on left upper extremity/bilateral lower extremity with daily dressing changes to the right femur, left knee, pinned care twice a day of left elbow. Patient will also continue to follow-up with Dr. Gentile if discharged home. - Xarelto 10 mg daily - Continue Physical therapy/occupational therapy - Physical therapy recommends specialty bed auto rolling. Pressure relief. - Air mattress bed with altered rolling - Pain management [place]'s 7.5/325 mg - May transferred to [facility] if appropriate. Consulted rehabilitation medicine for further management. - Continue wound care as per Ortho recommendation. - TLSO brace ordered per recommendation. Continue to encourage OOB sitting up Hypothyroidism - continue levothyroxine 150mg daily Constipation. Ct pericolace with prn DVT Prop Xarelto GI Prop Protonix Full code Discharge Planning needs rehab Problem Qualifiers (1) Femur fracture, right: (2) Elbow fracture: (3) T12 vertebral fracture: Larry Madrid MD Aug 10, 2016 10:29
--- NOTE | 2016-08-10 11:42 | HHI.PYPN ---
Subjective Remarks Patient was seen and discussed with the icu staff nurse. Patient reported that he has been doing much better. Continuing with his physical therapy. Still complaining of some pain and discomfort. But his attitude seems more positive. He denied any auditory or visual hallucinations or any paranoid delusion. No behavior or management problem reported. He is compliant and no side effects were complained continue with the same treatment Review of Systems Except as stated in HPI: all other systems reviewed are Neg Psychiatric: COMPLAINS OF: Mood changes, Depression Objective Alert: Yes [place]: Person, Place, Date, Situation Mood: Calm, Depressed Affect: Euthymic Memory Intact: Immediate, Recent (mildly impaired), Remote Hallucinations: Other (patient denied any active auditory or visual hallucinations) Delusions: No Delusion Type: Other (no obvious delusional material voiced) Suicidal: Ideation (patient denied any suicidal ideation or plan at this time) Homicidal: Ideation (denies any homicidal ideation or plan) Insight/Judgement Fair Vitals/IOs Vital Signs Date Time Temp Pulse Resp B/P Pulse Ox O2 Delivery O2 Flow Rate FiO2 08/10/16 06:14 97.4 96 14 111/64 96 Intake and Output 08/09/16 08/09/16 08/10/16 08:00 16:00 00:00 Intake Total 360 ml 720 ml 980 ml Output Total 700 ml Balance -340 ml 720 ml 980 ml Assessment & Plan Problem List: (1) Schizoaffective disorder, bipolar type ICD Code: F25.0 Assessment & Plan Estimated LOS: days Justification for Cont. Inpt. Monitoring of the medication to stabilize his mood Request HC Surrog/Guard Advoc?: No Konrad Jacinto MD Aug 10, 2016 11:42
[2016-08-10 19:38] VITALS: BP 102/72; PULSE 96; RESP 16; TEMP 98.1; O2SAT 97
[2016-08-10] MEDS: QUEtiapine FUMARATE 300 MG TAB PO SCH (21:23)
[2016-08-11 05:45] VITALS: BP 99/62; PULSE 97; RESP 15; TEMP 98.2; O2SAT 95
[2016-08-11] MEDS: LEVOTHYROXINE SODIUM 150 MCG TAB PO SCH (06:18)
[2016-08-11] MEDS: CIPROFLOXACIN 250 MG TAB PO SCH ×2 (09:00→22:01)
[2016-08-11] MEDS: LITHIUM CARBONATE 300 MG CAP PO SCH ×2 (09:00→22:02)
[2016-08-11] MEDS: DOCUSATE SODIUM 50 MG/SENNA 8.6 MG TAB PO SCH ×2 (09:00→22:01)
[2016-08-11] MEDS: ZIPRASIDONE HCL 40 MG CAP PO SCH ×2 (09:00→18:00)
[2016-08-11] MEDS: PANTOPRAZOLE SOD 40 MG DELAYED RELEASE TAB PO SCH (09:00)
[2016-08-11] MEDS: RIVAROXABAN 10 MG TAB PO SCH (09:00)
--- NOTE | 2016-08-11 11:21 | HHI.PYPN ---
Subjective Remarks Patient seen for evaluation today, and I also for treatment pain with manager social responsibility, nurse in charge and therapist. He was found sleeping, but easily arousable, is stays that he is doing better, describes his mood as fine,/, denies depression, was able to explain that he is doing much better with medication now because without medication in the past he was acting irrational, not seeing the world in a logical manner as he can see it today. He denies suicidal and homicidal ideation, he denies visual and auditory hallucinations. Patient has been actively participating in the process of physical rehabilitation. Review of Systems Other No somatic complaints Objective Alert: Yes [place]: Person, Place, Date, Situation Mood: Calm, Depressed Affect: Euthymic Memory Intact: Immediate, Recent (mildly impaired), Remote Hallucinations: Other (patient denied any active auditory or visual hallucinations) Delusions: No Delusion Type: Other (no obvious delusional material voiced) Suicidal: Ideation (patient denied any suicidal ideation or plan at this time) Homicidal: Ideation (denies any homicidal ideation or plan) Insight/Judgement good Vitals/IOs Vital Signs Date Time Temp Pulse Resp B/P Pulse Ox O2 Delivery O2 Flow Rate FiO2 08/11/16 05:45 98.2 97 15 99/62 95 Intake and Output 08/10/16 08/10/16 08/11/16 08:00 16:00 00:00 Intake Total 500 ml 960 ml 600 ml Output Total 750 ml 1850 ml 750 ml Balance -250 ml -890 ml -150 ml Assessment & Plan Problem List: (1) Schizoaffective disorder, bipolar type Assessment & Plan: We'll continue current doses of psychotropic, will order lithium level. Will continue psychotherapy, brief supportive psychotherapy provided. ICD Code: F25.0 Assessment & Plan Estimated LOS: days Justification for Cont. Inpt. Patient is is still fragile, with a very increased risk of decompensation out of the psychiatric unit. Request HC Surrog/Guard Advoc?: Dariel Newsome MD Aug 11, 2016 11:21
--- NOTE | 2016-08-11 14:07 | HHI.PR ---
Subjective Remarks Follow-up visit trauma, multiple fractures, hypothyroidism. Patient seen today. Reports is doing well. States he has his bowels last night. Eating and drinking well. Denies pain and discomfort. Denies SOB/ dyspnea. Denies chest pain, palpitations, headaches, dizziness. Denies fevers, chills, n/v/d. Objective Vitals Vital Signs Date Time Temp Pulse Resp B/P Pulse Ox O2 Delivery O2 Flow Rate FiO2 08/11/16 05:45 98.2 97 15 99/62 95 08/10/16 19:38 98.1 96 16 102/72 97 I/O 08/10/16 08/10/16 08/10/16 08/11/16 08/11/16 08/11/16 07:00 15:00 23:00 07:00 15:00 23:00 Intake Total 500 ml 960 ml 600 ml 240 ml 720 ml Output Total 750 ml 1850 ml 750 ml Balance -250 ml -890 ml -150 ml 240 ml 720 ml Intake Oral 500 ml 960 ml 600 ml 240 ml 720 ml Output Urine Total 750 ml 1850 ml 750 ml # Voids 3 # Bowel Movements 0 2 Imaging Last Impressions Wrist X-Ray 08/04/16 0000 Signed Impressions: Service Date/Time: Thursday, August 04, 2016 07:59 - CONCLUSION: Non- displaced fracture involving the distal radius and radiocarpal joint. Julius Barillas MD FACR Knee X-Ray 07/29/16 0000 Signed Impressions: Service Date/Time: Friday, July 29, 2016 10:14 - CONCLUSION: 1. Stable examination of the left knee. The nondisplaced left proximal fibular fracture has a stable appearance. 2. The patella fracture has undergone prior ORIF. There is stable articular step off at the superior pole posteriorly. Moses Buenrostro MD Femur X-Ray 07/29/16 0000 Signed Impressions: Service Date/Time: Friday, July 29, 2016 10:19 - CONCLUSION: Stable examination of the right femur in this patient post recent right femur ORIF for treatment of a intertrochanteric fracture in distal femoral diaphysis fracture. There is also a comminuted patella fracture present. Moses Buenrostro MD Elbow X-Ray 07/29/16 0000 Signed Impressions: Service Date/Time: Friday, July 29, 2016 10:37 - CONCLUSION: 1. Postsurgical changes as above. Robson Ghotra MD Abdomen X-Ray 07/29/16 0000 Signed Impressions: Service Date/Time: Friday, July 29, 2016 18:13 - CONCLUSION: Moderate stool burden suggesting constipation. No dilated loops of bowel. Bruno Brito Jr., MD Objective Remarks GENERAL: This is a well-nourished, well-developed patient, in no apparent distress. SKIN: No rashes, ecchymoses or lesions. Cool and dry. HEAD: Atraumatic. Normocephalic. No temporal or scalp tenderness. EYES: Pupils equal round and reactive. Extraocular motions intact. No scleral icterus. No injection or drainage. ENT: Nose without bleeding. Throat without erythema. Uvula midline. Airway patent. NECK: Trachea midline. No JVD or lymphadenopathy. Supple, nontender, no meningeal signs. CARDIOVASCULAR: Regular rate and rhythm without murmurs, gallops, or rubs. RESPIRATORY: Diminished bases. No wheezes, rales, or rhonchi. GASTROINTESTINAL: Abdomen soft, non-tender, nondistended. No hepato-splenomegaly , or palpable masses. No guarding. MUSCULOSKELETAL: Extremities without clubbing, cyanosis, bilateral lower extremity trace edema. Able to wiggle bilateral toes and move bilateral foot weakly. Left upper extremity with ex-fix. NEUROLOGICAL: Awake and alert. Flat affect. - Improved smiling today. Oriented to self, and place. Sensory grossly within normal limits. Normal speech. Procedures s/p right femur IMN s/p exfix left elbow s/p ORIF left patella right patella fx A/P Problem List: (1) Schizoaffective disorder, bipolar type ICD Code: F25.0 Status: Acute (2) Femur fracture, right ICD Code: S72.91XA Status: Acute (3) Elbow fracture ICD Code: S42.409A Status: Acute (4) Patella fracture ICD Code: S82.009A Status: Acute (5) T12 vertebral fracture ICD Code: S22.089A Status: Acute (6) Hypothyroidism ICD Code: E03.9 Status: Chronic Assessment and Plan This a 50-year-old gentleman with a past medical history which includes hypothyroidism, bipolar and schizophrenia. Patient is status post trauma alert on 07/12/2016 secondary to suicide attempt patient jumped off a bridge onto railroad tracks. Patient sustained multiple fractures has been taken to the OR initially was in intensive care unit and intubated for airway protection as well as pain management. Patient was extubated 07/13/2016. Bipolar, schizophrenia - managed by psychiatry team Multiple surgical interventions including: Patient received 4 units PRBCs, 1 FFP and platelets while in the OR. s/p right femur IMN s/p exfix left elbow s/p ORIF left patella right patella fx nonop pelvic fxs Latest surgical intervention- Status post Left elbow ex fix Per Ortho, nonoperative management of right patella and pelvic fractures. Patient will maintain nonweightbearing on left upper extremity/bilateral lower extremity with daily dressing changes to the right femur, left knee, pinned care twice a day of left elbow. Patient will also continue to follow-up with Dr. Gentile if discharged home. - Xarelto 10 mg daily - Continue Physical therapy/occupational therapy - Physical therapy recommends specialty bed auto rolling. Pressure relief. - Air mattress bed with altered rolling - Pain management [place]'s 7.5/325 mg - May transferred to [facility] if appropriate. Consulted rehabilitation medicine for further management. - Continue wound care as per Ortho recommendation. - TLSO brace ordered per recommendation. Continue to encourage OOB sitting up. Hypothyroidism - continue levothyroxine 150mg daily Constipation. Ct pericolace twice a day and prn UTI - continue Cipro until completed 08/16/59. Denies dysuria, hematuria. Afebrile. DVT Prop Xarelto GI Prop Protonix Discussed with patient, nursing, Written by Sera Jameson, acting as scribe for Dr. Yu on 08/11/16 at 14:28. Attending Statement The exam, history, and the medical decision-making described in the above note were completed with the assistance of the mid-level provider. I reviewed and agree with the findings presented. I attest that I had a [id number] encounter with the patient on the same day, and personally performed and documented my assessment and findings in the medical record. Problem Qualifiers (1) Femur fracture, right: (2) Elbow fracture: (3) T12 vertebral fracture: Sera Brandon Aug 11, 2016 14:07 Sam Yu MD Aug 22, 2016 09:27
[2016-08-11 16:26] VITALS: BP 99/63; PULSE 96; RESP 16; TEMP 98.7; O2SAT 95
[2016-08-11 19:44] VITALS: BP 99/63; PULSE 96; RESP 16; TEMP 98.7; O2SAT 95
[2016-08-11] MEDS: QUEtiapine FUMARATE 300 MG TAB PO SCH (22:02)
[2016-08-12 05:44] VITALS: BP 105/68; PULSE 93; RESP 16; TEMP 98; O2SAT 96
[2016-08-12] MEDS: LEVOTHYROXINE SODIUM 150 MCG TAB PO SCH (06:17)
[2016-08-12] MEDS: RIVAROXABAN 10 MG TAB PO SCH (09:00)
[2016-08-12] MEDS: LITHIUM CARBONATE 300 MG CAP PO SCH ×2 (09:22→21:02)
[2016-08-12] MEDS: DOCUSATE SODIUM 50 MG/SENNA 8.6 MG TAB PO SCH ×2 (09:22→21:01)
[2016-08-12] MEDS: PANTOPRAZOLE SOD 40 MG DELAYED RELEASE TAB PO SCH (09:22)
[2016-08-12] MEDS: CIPROFLOXACIN 250 MG TAB PO SCH ×2 (09:22→21:02)
[2016-08-12] MEDS: ZIPRASIDONE HCL 40 MG CAP PO SCH ×2 (09:23→18:00)
--- NOTE | 2016-08-12 10:27 | HHI.PYPN ---
Subjective Remarks Patient was seen for psychiatric evaluation today at bedside, he was found sleeping, easily arousable, once awakened he became immediately cooperative with the interview, he is states that he feels better, his mood is 7/10, denies depressive symptoms, denies suicidal or homicidal ideation, denies visual and auditory hallucinations, denies ideas of reference, paranoia, delusions. Patient seems to be logical, coherent, relevant in the conversation. He says that he is motivated to continue his psychiatric treatment and at the same time his rehabilitation process. He has been medication compliant, with good response and not significant side effects. Review of Systems Other No somatic complaints Objective Alert: Yes [place]: Person, Place, Date, Situation Mood: Calm, Depressed Affect: Euthymic Memory Intact: Immediate, Recent (mildly impaired), Remote Hallucinations: Other (patient denied any active auditory or visual hallucinations) Delusions: No Delusion Type: Other (no obvious delusional material voiced) Suicidal: Ideation (patient denied any suicidal ideation or plan at this time) Homicidal: Ideation (denies any homicidal ideation or plan) Insight/Judgement good Labs Test 08/11/16 12:20 [place] Level 0.9 MEQ/L Vitals/IOs Vital Signs Date Time Temp Pulse Resp B/P Pulse Ox O2 Delivery O2 Flow Rate FiO2 08/12/16 05:44 98.0 93 16 105/68 96 Intake and Output 08/11/16 08/11/16 08/12/16 08:00 16:00 00:00 Intake Total 240 ml 720 ml 480 ml Output Total 1600 ml Balance 240 ml 720 ml -1120 ml Assessment & Plan Problem List: (1) Schizoaffective disorder, bipolar type Assessment & Plan: Patient continues to show good adherence, compliance and response to psychotropics and psychotherapy. We'll continue process of hospitalization for stabilization, lithium level is 0.9. We'll continue same medication regimen. ICD Code: F25.0 Assessment & Plan Estimated LOS: days Justification for Cont. Inpt. Patient is to continue the personal psychiatric hospitalization for stabilization and safety. Request HC Surrog/Guard Advoc?: No Dariel Sanford MD Aug 12, 2016 10:27
--- NOTE | 2016-08-12 13:06 | HHI.PR ---
Subjective Remarks Follow-up visit trauma, multiple fractures, hypothyroidism. Patient seen today. Reports is doing well. States he has his bowels last night. Eating and drinking well. Denies pain and discomfort. Denies SOB/ dyspnea. Denies chest pain, palpitations, headaches, dizziness. Denies fevers, chills, n/v/d. Offers no complaints Objective Vitals Vital Signs Date Time Temp Pulse Resp B/P Pulse Ox O2 Delivery O2 Flow Rate FiO2 08/12/16 05:44 98.0 93 16 105/68 96 08/11/16 19:44 98.7 96 16 99/63 95 08/11/16 16:26 98.7 96 16 99/63 95 I/O 08/11/16 08/11/16 08/11/16 08/12/16 08/12/16 08/12/16 07:00 15:00 23:00 07:00 15:00 23:00 Intake Total 240 ml 720 ml 480 ml 120 ml Output Total 1600 ml Balance 240 ml 720 ml -1120 ml 120 ml Intake Oral 240 ml 720 ml 480 ml 120 ml Output Urine Total 1600 ml # Voids 2 Objective Remarks GENERAL: This is a well-nourished, well-developed patient, in no apparent distress. SKIN: No rashes, ecchymoses or lesions. Cool and dry. HEAD: Atraumatic. Normocephalic. No temporal or scalp tenderness. EYES: Pupils equal round and reactive. Extraocular motions intact. No scleral icterus. No injection or drainage. ENT: Nose without bleeding. Throat without erythema. Uvula midline. Airway patent. NECK: Trachea midline. No JVD or lymphadenopathy. Supple, nontender, no meningeal signs. CARDIOVASCULAR: Regular rate and rhythm without murmurs, gallops, or rubs. RESPIRATORY: Diminished bases. No wheezes, rales, or rhonchi. GASTROINTESTINAL: Abdomen soft, non-tender, nondistended. No hepato-splenomegaly , or palpable masses. No guarding. MUSCULOSKELETAL: Extremities without clubbing, cyanosis, bilateral lower extremity trace edema. Able to wiggle bilateral toes and move bilateral foot weakly. Left upper extremity with ex-fix. NEUROLOGICAL: Awake and alert. Flat affect. - Improved smiling today. Oriented to self, and place. Sensory grossly within normal limits. Normal speech. Procedures s/p right femur IMN s/p exfix left elbow s/p ORIF left patella right patella fx A/P Problem List: (1) Schizoaffective disorder, bipolar type ICD Code: F25.0 Status: Acute (2) Femur fracture, right ICD Code: S72.91XA Status: Acute (3) Elbow fracture ICD Code: S42.409A Status: Acute (4) Patella fracture ICD Code: S82.009A Status: Acute (5) T12 vertebral fracture ICD Code: S22.089A Status: Acute (6) Hypothyroidism ICD Code: E03.9 Status: Chronic Assessment and Plan This a 50-year-old gentleman with a past medical history which includes hypothyroidism, bipolar and schizophrenia. Patient is status post trauma alert on 07/12/2016 secondary to suicide attempt patient jumped off a bridge onto railroad tracks. Patient sustained multiple fractures has been taken to the OR initially was in intensive care unit and intubated for airway protection as well as pain management. Patient was extubated 07/13/2016. Bipolar, schizophrenia - managed by psychiatry team Multiple surgical interventions including: Patient received 4 units PRBCs, 1 FFP and platelets while in the OR. s/p right femur IMN s/p exfix left elbow s/p ORIF left patella right patella fx nonop pelvic fxs Latest surgical intervention- Status post Left elbow ex fix Per Ortho, nonoperative management of right patella and pelvic fractures. Patient will maintain nonweightbearing on left upper extremity/bilateral lower extremity with daily dressing changes to the right femur, left knee, pinned care twice a day of left elbow. Patient will also continue to follow-up with Dr. Gentile if discharged home. - Xarelto 10 mg daily - Continue Physical therapy/occupational therapy - Physical therapy recommends specialty bed auto rolling. Pressure relief. - Air mattress bed with altered rolling - Pain management [place]'s 7.5/325 mg - May transfer to rehabilitation. Consulted rehabilitation medicine for further management. - Continue wound care as per Ortho recommendation. - TLSO brace ordered per recommendation. Continue to encourage OOB sitting up. Hypothyroidism - continue levothyroxine 150mg daily Constipation. Ct pericolace twice a day and prn UTI - continue Cipro until completed 08/16/59. Denies dysuria, hematuria. Afebrile. DVT Prop Xarelto GI Prop Protonix Discussed with patient, nursing, Dr. Sanford, Meño GONZALEZ with orthopedics and Dr. Yu Attending Statement The exam, history, and the medical decision-making described in the above note were completed with the assistance of the mid-level provider. I reviewed and agree with the findings presented. I attest that I had a [id number] encounter with the patient on the same day, and personally performed and documented my assessment and findings in the medical record. Problem Qualifiers (1) Femur fracture, right: (2) Elbow fracture: (3) T12 vertebral fracture: Isabella Luther Aug 12, 2016 13:06 Sam Yu MD Aug 22, 2016 09:28
[2016-08-12 20:26] VITALS: BP 128/81; PULSE 99; RESP 18; TEMP 98.2; O2SAT 96
[2016-08-12] MEDS: QUEtiapine FUMARATE 300 MG TAB PO SCH (21:01)
[2016-08-13] MEDS: LEVOTHYROXINE SODIUM 150 MCG TAB PO SCH (06:16)
[2016-08-13 06:49] VITALS: BP 114/71; PULSE 96; RESP 16; TEMP 98; O2SAT 97
[2016-08-13] MEDS: DOCUSATE SODIUM 50 MG/SENNA 8.6 MG TAB PO SCH ×2 (08:58→22:18)
[2016-08-13] MEDS: RIVAROXABAN 10 MG TAB PO SCH (08:58)
[2016-08-13] MEDS: PANTOPRAZOLE SOD 40 MG DELAYED RELEASE TAB PO SCH (08:58)
[2016-08-13] MEDS: CIPROFLOXACIN 250 MG TAB PO SCH ×2 (08:58→22:17)
[2016-08-13] MEDS: LITHIUM CARBONATE 300 MG CAP PO SCH ×2 (08:58→22:17)
[2016-08-13] MEDS: ZIPRASIDONE HCL 40 MG CAP PO SCH ×2 (08:58→18:00)
--- NOTE | 2016-08-13 10:52 | PD.ORT.PN ---
Subjective Subjective Remarks resting comfortably Objective Vitals Vital Signs Date Time Temp Pulse Resp B/P Pulse Ox O2 Delivery O2 Flow Rate FiO2 08/13/16 06:49 98.0 96 16 114/71 97 08/12/16 20:26 98.2 99 18 128/81 96 I/O 08/12/16 08/12/16 08/12/16 08/13/16 08/13/16 08/13/16 07:00 15:00 23:00 07:00 15:00 23:00 Intake Total 120 ml 360 ml 120 ml 360 ml Output Total 1000 ml Balance 120 ml 360 ml 120 ml -640 ml Intake Oral 120 ml 360 ml 120 ml 360 ml Output Urine Total 1000 ml # Voids 2 # Bowel Movements 0 Objective Remarks LUE: +elbow exfix. pin sites with some build up of escar. NVI distally beginning to develop contractures of fingers and wrist. incisions healing well. Locking bar removed from x fix LLE: incision and lacerations healing without sign of infection. +CKS. NVI RLE: +CKS. minimal swelling. NVI. incisions and lacerations healing without sign of infection.; Pelvis with mild tenderness with motion of hips Assessment & Plan Assessment and Plan 1) I&D with ORIF L open Patella fx, R long intramedullary femoral nail for intertroch and fem shaft fxs, I&D L Hand with closure of traumatic wound, I&D L elbow with application of ex-fix( [place])07/12/16 2) status post radial head replacement and complex repair of left elbow fracture dislocation with hinged external fixator(Seferino) 07/15/16 pin care twice a day with 1/2 peroxide and 1/2 saline Nonweightbearing left upper extremity Occupational therapy for ROM of fingers and PROM of elbow 3) Right patella fracture to be treated nonoperatively with knee immobilizer and no range of motion of knee 4)Pelvic fractures --plan nonoperative treatment Bilateral patella fractures continue knee immobilizers NWB BLE and L UE dvt prophylaxis med management psych management . ALANNA MOSS PA-C Aug 13, 2016 10:52
--- NOTE | 2016-08-13 11:28 | HHI.PR ---
Subjective Remarks Follow-up visit trauma, multiple fractures, hypothyroidism. Patient seen today , resting in bed in no acute distress offer no medical complaints. Eating and drinking well. Denies pain and discomfort. Denies SOB/ dyspnea. Denies chest pain, palpitations, headaches, dizziness. Denies fevers, chills, n/v/d. Objective Vitals Vital Signs Date Time Temp Pulse Resp B/P Pulse Ox O2 Delivery O2 Flow Rate FiO2 08/13/16 06:49 98.0 96 16 114/71 97 08/12/16 20:26 98.2 99 18 128/81 96 I/O 08/12/16 08/12/16 08/12/16 08/13/16 08/13/16 08/13/16 07:00 15:00 23:00 07:00 15:00 23:00 Intake Total 120 ml 360 ml 120 ml 360 ml Output Total 1000 ml Balance 120 ml 360 ml 120 ml -640 ml Intake Oral 120 ml 360 ml 120 ml 360 ml Output Urine Total 1000 ml # Voids 2 # Bowel Movements 0 Objective Remarks GENERAL: This is a well-nourished, well-developed patient, in no apparent distress. SKIN: No rashes, ecchymoses or lesions. Cool and dry. HEAD: Atraumatic. Normocephalic. No temporal or scalp tenderness. EYES: Pupils equal round and reactive. Extraocular motions intact. No scleral icterus. No injection or drainage. ENT: Nose without bleeding. Throat without erythema. Uvula midline. Airway patent. NECK: Trachea midline. No JVD or lymphadenopathy. Supple, nontender, no meningeal signs. CARDIOVASCULAR: Regular rate and rhythm without murmurs, gallops, or rubs. RESPIRATORY: Diminished bases. No wheezes, rales, or rhonchi. GASTROINTESTINAL: Abdomen soft, non-tender, nondistended. No hepato-splenomegaly , or palpable masses. No guarding. MUSCULOSKELETAL: Extremities without clubbing, cyanosis, bilateral lower extremity trace edema. Able to wiggle bilateral toes and move bilateral foot weakly. Left upper extremity with ex-fix. NEUROLOGICAL: Awake and alert. Flat affect. - Improved smiling today. Oriented to self, and place. Sensory grossly within normal limits. Normal speech. Procedures s/p right femur IMN s/p exfix left elbow s/p ORIF left patella right patella fx A/P Problem List: (1) Schizoaffective disorder, bipolar type ICD Code: F25.0 Status: Acute (2) Femur fracture, right ICD Code: S72.91XA Status: Acute (3) Elbow fracture ICD Code: S42.409A Status: Acute (4) Patella fracture ICD Code: S82.009A Status: Acute (5) T12 vertebral fracture ICD Code: S22.089A Status: Acute (6) Hypothyroidism ICD Code: E03.9 Status: Chronic Assessment and Plan This a 50-year-old gentleman with a past medical history which includes hypothyroidism, bipolar and schizophrenia. Patient is status post trauma alert on 07/12/2016 secondary to suicide attempt patient jumped off a bridge onto railroad tracks. Patient sustained multiple fractures has been taken to the OR initially was in intensive care unit and intubated for airway protection as well as pain management. Patient was extubated 07/13/2016. Bipolar, schizophrenia - managed by psychiatry team Multiple surgical interventions including: Patient received 4 units PRBCs, 1 FFP and platelets while in the OR. s/p right femur IMN s/p exfix left elbow s/p ORIF left patella right patella fx nonop pelvic fxs Latest surgical intervention- Status post Left elbow ex fix Per Ortho, nonoperative management of right patella and pelvic fractures. Patient will maintain nonweightbearing on left upper extremity/bilateral lower extremity with daily dressing changes to the right femur, left knee, pinned care twice a day of left elbow. Patient will also continue to follow-up with Dr. Gentile if discharged home. - Xarelto 10 mg daily - Continue Physical therapy/occupational therapy - Physical therapy recommends specialty bed auto rolling. Pressure relief. - Air mattress bed with altered rolling - Pain management [place]'s 7.5/325 mg - May transfer to rehabilitation. Consulted rehabilitation medicine for further management. - Continue wound care as per Ortho recommendation. - TLSO brace ordered per recommendation. Continue to encourage OOB sitting up. Hypothyroidism - continue levothyroxine 150mg daily Constipation. Continue pericolace twice a day and prn UTI - continue Cipro until completed 08/16/59. Denies dysuria, hematuria. Afebrile. DVT Prop Xarelto GI Prop Protonix Discussed with patient, nursing and Dr. Yu Problem Qualifiers (1) Femur fracture, right: (2) Elbow fracture: (3) T12 vertebral fracture: Isabella Luther Aug 13, 2016 11:28 Sam Yu MD Aug 22, 2016 09:30
--- NOTE | 2016-08-13 12:40 | HHI.PYPN ---
Subjective Remarks Patient was seen for evaluation today, he was found sleeping, but easily arousable, during the evaluation his is a little bit sleepy, he reports good mood, but his affect is flat, seems to be a little be internally preoccupied, with some speech latency and thought blocking, however he reports that he is doing better, and he is motivated to continue his rehabilitation process and psychiatric care, he denies suicidal and homicidal ideation, he denies visual and auditory hallucinations. He also denies delusions of reference, thought control, and other psychotic symptoms. Review of Systems Other No somatic complaints Objective Alert: Yes [place]: Person, Place, Date, Situation Mood: Depressed Affect: Flat Memory Intact: Immediate, Recent (mildly impaired), Remote Hallucinations: Other (patient denied any active auditory or visual hallucinations) Delusions: No Delusion Type: Other (no obvious delusional material voiced) Suicidal: Ideation (patient denied any suicidal ideation or plan at this time) Homicidal: Ideation (denies any homicidal ideation or plan) Insight/Judgement fair Vitals/IOs Vital Signs Date Time Temp Pulse Resp B/P Pulse Ox O2 Delivery O2 Flow Rate FiO2 08/13/16 06:49 98.0 96 16 114/71 97 Intake and Output 08/12/16 08/12/16 08/13/16 08:00 16:00 00:00 Intake Total 120 ml 360 ml 480 ml Output Total 1000 ml Balance 120 ml 360 ml -520 ml Assessment & Plan Problem List: (1) Schizoaffective disorder, bipolar type Assessment & Plan: Patient is to continue processing psychiatric hospitalization for stabilization, will increase psychotherapy sessions, he needs to be transferred to physical rehabilitation. No changes in his medications today. ICD Code: F25.0 Assessment & Plan Estimated LOS: days Justification for Cont. Inpt. Patient has a very high risk to decompensate out of an structure environment. Request HC Surrog/Guard Advoc?: No Dariel Sanford MD Aug 13, 2016 12:40
[2016-08-13 16:27] VITALS: BP 107/60; PULSE 97; RESP 16; TEMP 98.1; O2SAT 96
[2016-08-13] MEDS: QUEtiapine FUMARATE 300 MG TAB PO SCH (22:17)
[2016-08-14 04:25] VITALS: BP 112/69; PULSE 92; RESP 15; TEMP 98.1; O2SAT 97
[2016-08-14] MEDS: LEVOTHYROXINE SODIUM 150 MCG TAB PO SCH (06:46)
[2016-08-14] MEDS: RIVAROXABAN 10 MG TAB PO SCH (08:04)
[2016-08-14] MEDS: PANTOPRAZOLE SOD 40 MG DELAYED RELEASE TAB PO SCH (08:04)
[2016-08-14] MEDS: ZIPRASIDONE HCL 40 MG CAP PO SCH ×2 (08:04→17:14)
[2016-08-14] MEDS: CIPROFLOXACIN 250 MG TAB PO SCH ×2 (08:04→21:00)
[2016-08-14] MEDS: DOCUSATE SODIUM 50 MG/SENNA 8.6 MG TAB PO SCH ×2 (08:05→20:27)
[2016-08-14] MEDS: LITHIUM CARBONATE 300 MG CAP PO SCH ×2 (08:05→20:27)
[2016-08-14] MEDS: ACETAMINOPHEN/HYDROcodone 325 MG/7.5 MG TAB PO PRN (09:13)
--- NOTE | 2016-08-14 13:32 | HHI.PYPN ---
Subjective Remarks On reevaluation today patient is alert, awake, communicative, he reports good mood, denies depressive symptoms, denies suicidal and homicidal ideation, denies visual and auditory hallucinations. Patient expresses motivation to continue doing everything is possible to improve mentally and physically. He is fully oriented and history, no delirium, confusion, fluctuation of consciousness, attention deficit observed. Review of Systems Other No somatic complaints Objective Alert: Yes [place]: Person, Place, Date, Situation Mood: Depressed Affect: Flat Memory Intact: Immediate, Recent (mildly impaired), Remote Hallucinations: Other (patient denied any active auditory or visual hallucinations) Delusions: No Delusion Type: Other (no obvious delusional material voiced) Suicidal: Ideation (patient denied any suicidal ideation or plan at this time) Homicidal: Ideation (denies any homicidal ideation or plan) Insight/Judgement fair Vitals/IOs Vital Signs Date Time Temp Pulse Resp B/P Pulse Ox O2 Delivery O2 Flow Rate FiO2 08/14/16 04:25 98.1 92 15 112/69 97 Intake and Output 08/13/16 08/13/16 08/14/16 08:00 16:00 00:00 Intake Total 620 ml Output Total 750 ml Balance -750 ml 620 ml Assessment & Plan Problem List: (1) Schizoaffective disorder, bipolar type ICD Code: F25.0 Assessment & Plan Estimated LOS: days Justification for Cont. Inpt. Patient is to continue psychiatric hospitalization for stabilization, he has a very high probability to the competency out of this structured environment. Request HC Surrog/Guard Advoc?: No Dariel Sanford MD Aug 14, 2016 13:32
[2016-08-14 18:08] VITALS: BP 102/69; PULSE 94; RESP 16; TEMP 98.1; O2SAT 96
--- NOTE | 2016-08-14 18:51 | HHI.PR ---
Subjective Remarks Patient seen earlier today at around 9 AM Follow-up visit trauma, multiple fractures, hypothyroidism. Patient seen today , resting in bed in no acute distress offer no medical complaints. Eating and drinking well. Denies pain and discomfort. Denies SOB/ dyspnea. Denies chest pain, palpitations, headaches, dizziness. Denies fevers, chills, n/v/d. No changes overnight Objective Vitals Vital Signs Date Time Temp Pulse Resp B/P Pulse Ox O2 Delivery O2 Flow Rate FiO2 08/14/16 18:08 98.1 94 16 102/69 96 08/14/16 04:25 98.1 92 15 112/69 97 I/O 08/13/16 08/13/16 08/13/16 08/14/16 08/14/16 08/14/16 07:00 15:00 23:00 07:00 15:00 23:00 Intake Total 360 ml 620 ml 120 ml 1320 ml 360 ml Output Total 1000 ml 750 ml Balance -640 ml -750 ml 620 ml 120 ml 1320 ml 360 ml Intake Oral 360 ml 620 ml 120 ml 1320 ml 360 ml Output Urine Total 1000 ml 750 ml # Voids 2 2 3 # Bowel Movements 0 0 Objective Remarks GENERAL: This is a well-nourished, well-developed patient, in no apparent distress. SKIN: No rashes, ecchymoses or lesions. Cool and dry. HEAD: Atraumatic. Normocephalic. No temporal or scalp tenderness. EYES: Pupils equal round and reactive. Extraocular motions intact. No scleral icterus. No injection or drainage. ENT: Nose without bleeding. Throat without erythema. Uvula midline. Airway patent. NECK: Trachea midline. No JVD or lymphadenopathy. Supple, nontender, no meningeal signs. CARDIOVASCULAR: Regular rate and rhythm without murmurs, gallops, or rubs. RESPIRATORY: Diminished bases. No wheezes, rales, or rhonchi. GASTROINTESTINAL: Abdomen soft, non-tender, nondistended. No hepato-splenomegaly , or palpable masses. No guarding. MUSCULOSKELETAL: Extremities without clubbing, cyanosis, bilateral lower extremity trace edema. Able to wiggle bilateral toes and move bilateral foot weakly. Left upper extremity with ex-fix. NEUROLOGICAL: Awake and alert. Flat affect. - Improved smiling today. Oriented to self, and place. Sensory grossly within normal limits. Normal speech. Procedures s/p right femur IMN s/p exfix left elbow s/p ORIF left patella right patella fx A/P Problem List: (1) Schizoaffective disorder, bipolar type ICD Code: F25.0 Status: Acute (2) Femur fracture, right ICD Code: S72.91XA Status: Acute (3) Elbow fracture ICD Code: S42.409A Status: Acute (4) Patella fracture ICD Code: S82.009A Status: Acute (5) T12 vertebral fracture ICD Code: S22.089A Status: Acute (6) Hypothyroidism ICD Code: E03.9 Status: Chronic Assessment and Plan Daily update 08/14/2016 no changes overnight continue current care This a 50-year-old gentleman with a past medical history which includes hypothyroidism, bipolar and schizophrenia. Patient is status post trauma alert on 07/12/2016 secondary to suicide attempt patient jumped off a bridge onto railroad tracks. Patient sustained multiple fractures has been taken to the OR initially was in intensive care unit and intubated for airway protection as well as pain management. Patient was extubated 07/13/2016. Bipolar, schizophrenia - managed by psychiatry team Multiple surgical interventions including: Patient received 4 units PRBCs, 1 FFP and platelets while in the OR. s/p right femur IMN s/p exfix left elbow s/p ORIF left patella right patella fx nonop pelvic fxs Latest surgical intervention- Status post Left elbow ex fix Per Ortho, nonoperative management of right patella and pelvic fractures. Patient will maintain nonweightbearing on left upper extremity/bilateral lower extremity with daily dressing changes to the right femur, left knee, pinned care twice a day of left elbow. Patient will also continue to follow-up with Dr. Gentile if discharged home. - Xarelto 10 mg daily - Continue Physical therapy/occupational therapy - Physical therapy recommends specialty bed auto rolling. Pressure relief. - Air mattress bed with altered rolling - Pain management [place]'s 7.5/325 mg - May transfer to rehabilitation. Consulted rehabilitation medicine for further management. - Continue wound care as per Ortho recommendation. - TLSO brace ordered per recommendation. Continue to encourage OOB sitting up. Hypothyroidism - continue levothyroxine 150mg daily Constipation. Continue pericolace twice a day and prn UTI - continue Cipro until completed 08/16/59. Denies dysuria, hematuria. Afebrile. DVT Prop Xarelto GI Prop Protonix Discussed with patient, nursing and Dr. Yu Problem Qualifiers (1) Femur fracture, right: (2) Elbow fracture: (3) T12 vertebral fracture: Isabella Luther Aug 14, 2016 18:51
[2016-08-14] MEDS: QUEtiapine FUMARATE 300 MG TAB PO SCH (20:26)
[2016-08-15] MEDS: LEVOTHYROXINE SODIUM 150 MCG TAB PO SCH (05:34)
[2016-08-15 06:12] VITALS: BP 112/70; PULSE 90; RESP 16; TEMP 97.8; O2SAT 97
[2016-08-15] MEDS: LITHIUM CARBONATE 300 MG CAP PO SCH ×2 (08:11→20:46)
[2016-08-15] MEDS: CIPROFLOXACIN 250 MG TAB PO SCH ×2 (08:11→20:46)
[2016-08-15] MEDS: DOCUSATE SODIUM 50 MG/SENNA 8.6 MG TAB PO SCH ×2 (08:11→20:46)
[2016-08-15] MEDS: ZIPRASIDONE HCL 40 MG CAP PO SCH ×2 (08:11→17:32)
[2016-08-15] MEDS: RIVAROXABAN 10 MG TAB PO SCH (08:11)
[2016-08-15] MEDS: PANTOPRAZOLE SOD 40 MG DELAYED RELEASE TAB PO SCH (08:11)
--- NOTE | 2016-08-15 12:10 | HHI.PR ---
Subjective Remarks Follow-up visit trauma, multiple fractures, hypothyroidism. Patient seen today , resting in bed in no acute distress offer no medical complaints. Eating and drinking well. Denies pain and discomfort. Denies SOB/ dyspnea. Denies chest pain, palpitations, headaches, dizziness. Denies fevers, chills, n/v/d. Objective Vitals Vital Signs Date Time Temp Pulse Resp B/P Pulse Ox O2 Delivery O2 Flow Rate FiO2 08/15/16 06:12 97.8 90 16 112/70 97 08/14/16 18:08 98.1 94 16 102/69 96 I/O 08/14/16 08/14/16 08/14/16 08/15/16 08/15/16 08/15/16 07:00 15:00 23:00 07:00 15:00 23:00 Intake Total 120 ml 1320 ml 1080 ml 360 ml 360 ml Output Total 950 ml Balance 120 ml 1320 ml 1080 ml 360 ml -590 ml Intake Oral 120 ml 1320 ml 1080 ml 360 ml 360 ml Output Urine Total 950 ml # Voids 3 1 0 # Bowel Movements 0 1 0 Objective Remarks GENERAL: This is a well-nourished, well-developed patient, in no apparent distress. SKIN: No rashes, ecchymoses or lesions. Cool and dry. HEAD: Atraumatic. Normocephalic. No temporal or scalp tenderness. EYES: Pupils equal round and reactive. Extraocular motions intact. No scleral icterus. No injection or drainage. ENT: Nose without bleeding. Throat without erythema. Uvula midline. Airway patent. NECK: Trachea midline. No JVD or lymphadenopathy. Supple, nontender, no meningeal signs. CARDIOVASCULAR: Regular rate and rhythm without murmurs, gallops, or rubs. RESPIRATORY: Diminished bases. No wheezes, rales, or rhonchi. GASTROINTESTINAL: Abdomen soft, non-tender, nondistended. No hepato-splenomegaly , or palpable masses. No guarding. MUSCULOSKELETAL: Extremities without clubbing, cyanosis, bilateral lower extremity trace edema. Able to wiggle bilateral toes and move bilateral foot weakly. Left upper extremity with ex-fix. NEUROLOGICAL: Awake and alert. Flat affect. - Improved smiling today. Oriented to self, and place. Sensory grossly within normal limits. Normal speech. Procedures s/p right femur IMN s/p exfix left elbow s/p ORIF left patella right patella fx A/P Problem List: (1) Schizoaffective disorder, bipolar type ICD Code: F25.0 Status: Acute (2) Femur fracture, right ICD Code: S72.91XA Status: Acute (3) Elbow fracture ICD Code: S42.409A Status: Acute (4) Patella fracture ICD Code: S82.009A Status: Acute (5) T12 vertebral fracture ICD Code: S22.089A Status: Acute (6) Hypothyroidism ICD Code: E03.9 Status: Chronic Assessment and Plan This a 50-year-old gentleman with a past medical history which includes hypothyroidism, bipolar and schizophrenia. Patient is status post trauma alert on 07/12/2016 secondary to suicide attempt patient jumped off a bridge onto railroad tracks. Patient sustained multiple fractures has been taken to the OR initially was in intensive care unit and intubated for airway protection as well as pain management. Patient was extubated 07/13/2016. Bipolar, schizophrenia - managed by psychiatry team Multiple surgical interventions including: Patient received 4 units PRBCs, 1 FFP and platelets while in the OR. s/p right femur IMN s/p exfix left elbow s/p ORIF left patella right patella fx nonop pelvic fxs Latest surgical intervention- Status post Left elbow ex fix Per Ortho, nonoperative management of right patella and pelvic fractures. Patient will maintain nonweightbearing on left upper extremity/bilateral lower extremity with daily dressing changes to the right femur, left knee, pinned care twice a day of left elbow. Patient will also continue to follow-up with Dr. Gentile if discharged home. - Xarelto 10 mg daily - Continue Physical therapy/occupational therapy - Physical therapy recommends specialty bed auto rolling. Pressure relief. - Air mattress bed with altered rolling - Pain management [place]'s 7.5/325 mg - May transfer to rehabilitation. Consulted rehabilitation medicine for further management. - Continue wound care as per Ortho recommendation. - TLSO brace ordered per recommendation. Continue to encourage OOB sitting up. Hypothyroidism - continue levothyroxine 150mg daily Constipation. Continue pericolace twice a day and prn UTI - continue Cipro until completed 08/16/59. Denies dysuria, hematuria. Afebrile. DVT Prop Xarelto GI Prop Protonix Discussed with patient, nursing and Dr. Yu Problem Qualifiers (1) Femur fracture, right: (2) Elbow fracture: (3) T12 vertebral fracture: Isabella Luther Aug 15, 2016 12:10 Sam Yu MD Aug 22, 2016 09:31
--- NOTE | 2016-08-15 12:45 | HHI.PYPN ---
Subjective Remarks Patient was seen today for psychiatric reevaluation, patient continues to show good response to psychotropics and psychotherapy, he reports good mood, he denies depressive symptoms, denies anhedonia, denies hopelessness, denies helplessness, he reports good motivation to continue his medical and psychiatric recommendations, to get better and go back home with his . He states that at time he does feel sad "because is not easy to be my condition every day", but he denies suicidal ideation, he denies homicidal ideation, denies visual and auditory hallucinations. Patient is fully oriented 3, no gross cognitive impairment, fluctuation of consciousness, attention deficit, agitation or aggressive behavior has been observed. No paranoia, loosening of associations, delusions of reference are elicited during this evaluation. Today psychiatric team met with patient's , Helena Barros, and she was informed about patient's insurance decision of not paying inpatient comprehensive physical rehabilitation program. She expressed concerns about the patient condition and her inability to take care of him at home when he cannot even manage a wheelchair. We agreed to reconsult or ortho in order to discuss their recommendation after psychiatric clearance. She expressed her satisfaction with patient progression in the psychiatric unit and she agreed with clearing the patient psychiatrically. Review of Systems Other No somatic complaints Objective Alert: Yes [place]: Person, Place, Date, Situation Mood: Calm Affect: Euthymic Memory Intact: Immediate, Recent (mildly impaired), Remote Hallucinations: Other (patient denied any active auditory or visual hallucinations) Delusions: No Delusion Type: Other (no obvious delusional material voiced) Suicidal: Ideation (patient denied any suicidal ideation or plan at this time) Homicidal: Ideation (denies any homicidal ideation or plan) Insight/Judgement Good Vitals/IOs Vital Signs Date Time Temp Pulse Resp B/P Pulse Ox O2 Delivery O2 Flow Rate FiO2 08/15/16 06:12 97.8 90 16 112/70 97 Intake and Output 08/14/16 08/14/16 08/15/16 08:00 16:00 00:00 Intake Total 120 ml 1320 ml 1080 ml Balance 120 ml 1320 ml 1080 ml Assessment & Plan Problem List: (1) Schizoaffective disorder, bipolar type Assessment & Plan: Psychiatric reevaluation today patient continues to show improvement in his mood and thought processes. Will continue current psychotropics, will reconsult Ortho for clear recommendation after psychiatric clearance. Meeting with patient's done today. ICD Code: F25.0 Assessment & Plan Estimated LOS: days Justification for Cont. Inpt. Need to coordinate a safe discharge plan Request HC Surrog/Guard Advoc?: No Dariel Sanford MD Aug 15, 2016 12:45
--- NOTE | 2016-08-15 14:09 | PD.ORT.PN ---
Subjective Subjective Remarks s/p right femur IMN s/p ORIF left patella s/p non op treatment right patella s/p ligamentous reconstruction with Exfix left elbow s/p non op pelvis fxs -patient states pain is well controlled. no complaints. at bedside Objective Vitals Vital Signs Date Time Temp Pulse Resp B/P Pulse Ox O2 Delivery O2 Flow Rate FiO2 08/15/16 06:12 97.8 90 16 112/70 97 08/14/16 18:08 98.1 94 16 102/69 96 I/O 08/14/16 08/14/16 08/14/16 08/15/16 08/15/16 08/15/16 07:00 15:00 23:00 07:00 15:00 23:00 Intake Total 120 ml 1320 ml 1080 ml 360 ml 720 ml Output Total 950 ml Balance 120 ml 1320 ml 1080 ml 360 ml -230 ml Intake Oral 120 ml 1320 ml 1080 ml 360 ml 720 ml Output Urine Total 950 ml # Voids 3 1 0 # Bowel Movements 0 1 0 Objective Remarks LUE: +elbow exfix. pin sites with some build up of escar. NVI distally beginning to develop contractures of fingers and wrist. incisions healing well. Locking bar removed from x fix LLE: incision and lacerations healing without sign of infection. +CKS. NVI RLE: +CKS. minimal swelling. NVI. incisions and lacerations healing without sign of infection.; Pelvis with mild tenderness with motion of hips Assessment & Plan Assessment and Plan 1) I&D with ORIF L open Patella fx, R long intramedullary femoral nail for intertroch and fem shaft fxs, I&D L Hand with closure of traumatic wound, I&D L elbow with application of ex-fix( [place])07/12/16 2) status post radial head replacement and complex repair of left elbow fracture dislocation with hinged external fixator(Seferino) 07/15/16 pin care twice a day with 1/2 peroxide and 1/2 saline Nonweightbearing left upper extremity Occupational therapy for ROM of fingers and PROM of elbow 3) Right patella fracture to be treated nonoperatively with knee immobilizer and no range of motion of knee 4)Pelvic fractures --plan nonoperative treatment Bilateral patella fractures continue knee immobilizers NWB BLE and L UE dvt prophylaxis med management psych management -will plan for progression of weight bearing status and activity of BLE in 2 weeks -will re-order xrays next week -placed consult for case mgmt to assist in discharge planning . Omer Griffiths Aug 15, 2016 14:09
[2016-08-15 18:50] VITALS: BP 123/82; PULSE 107; RESP 16; TEMP 98.1; O2SAT 96
[2016-08-15] MEDS: QUEtiapine FUMARATE 300 MG TAB PO SCH (20:46)
[2016-08-16] MEDS: LEVOTHYROXINE SODIUM 150 MCG TAB PO SCH (05:52)
[2016-08-16 06:23] VITALS: BP 106/59; PULSE 98; RESP 16; TEMP 97.5; O2SAT 97
[2016-08-16] MEDS: ZIPRASIDONE HCL 40 MG CAP PO SCH ×2 (09:37→18:00)
[2016-08-16] MEDS: LITHIUM CARBONATE 300 MG CAP PO SCH ×2 (09:37→20:14)
[2016-08-16] MEDS: PANTOPRAZOLE SOD 40 MG DELAYED RELEASE TAB PO SCH (09:37)
[2016-08-16] MEDS: DOCUSATE SODIUM 50 MG/SENNA 8.6 MG TAB PO SCH ×2 (09:37→20:14)
[2016-08-16] MEDS: RIVAROXABAN 10 MG TAB PO SCH (09:37)
--- NOTE | 2016-08-16 10:33 | HHI.PR ---
Subjective Remarks Follow-up visit trauma, multiple fractures, hypothyroidism. Patient seen today , resting in bed in no acute distress offer no medical complaints. Eating and drinking well, last bowel movement yesterday 08/15/2016. Objective Vitals Vital Signs Date Time Temp Pulse Resp B/P Pulse Ox O2 Delivery O2 Flow Rate FiO2 08/16/16 06:23 97.5 98 16 106/59 97 08/15/16 18:50 98.1 107 16 123/82 96 I/O 08/15/16 08/15/16 08/15/16 08/16/16 08/16/16 08/16/16 07:00 15:00 23:00 07:00 15:00 23:00 Intake Total 360 ml 1440 ml 1080 ml 120 ml Output Total 950 ml 900 ml Balance 360 ml 490 ml 1080 ml -900 ml 120 ml Intake Oral 360 ml 1440 ml 1080 ml 120 ml Output Urine Total 950 ml 900 ml # Voids 0 1 1 # Bowel Movements 0 0 0 0 Objective Remarks GENERAL: This is a well-nourished, well-developed patient, in no apparent distress. SKIN: No rashes, ecchymoses or lesions. Cool and dry. HEAD: Atraumatic. Normocephalic. No temporal or scalp tenderness. EYES: Pupils equal round and reactive. Extraocular motions intact. No scleral icterus. No injection or drainage. ENT: Nose without bleeding. Throat without erythema. Uvula midline. Airway patent. NECK: Trachea midline. No JVD or lymphadenopathy. Supple, nontender, no meningeal signs. CARDIOVASCULAR: Regular rate and rhythm without murmurs, gallops, or rubs. RESPIRATORY: Diminished bases. No wheezes, rales, or rhonchi. GASTROINTESTINAL: Abdomen soft, non-tender, nondistended. No hepato-splenomegaly , or palpable masses. No guarding. MUSCULOSKELETAL: Extremities without clubbing, cyanosis, bilateral lower extremity trace edema. Able to wiggle bilateral toes and move bilateral foot weakly. Left upper extremity with ex-fix. NEUROLOGICAL: Awake and alert. Flat affect. - Improved smiling today. Oriented to self, and place. Sensory grossly within normal limits. Normal speech. Procedures s/p right femur IMN s/p exfix left elbow s/p ORIF left patella right patella fx A/P Problem List: (1) Schizoaffective disorder, bipolar type ICD Code: F25.0 Status: Acute (2) Femur fracture, right ICD Code: S72.91XA Status: Acute (3) Elbow fracture ICD Code: S42.409A Status: Acute (4) Patella fracture ICD Code: S82.009A Status: Acute (5) T12 vertebral fracture ICD Code: S22.089A Status: Acute (6) Hypothyroidism ICD Code: E03.9 Status: Chronic Assessment and Plan No changes from medical perspective continue current care. This a 50-year-old gentleman with a past medical history which includes hypothyroidism, bipolar and schizophrenia. Patient is status post trauma alert on 07/12/2016 secondary to suicide attempt patient jumped off a bridge onto railroad tracks. Patient sustained multiple fractures has been taken to the OR initially was in intensive care unit and intubated for airway protection as well as pain management. Patient was extubated 07/13/2016. Bipolar, schizophrenia - managed by psychiatry team Multiple surgical interventions including: Patient received 4 units PRBCs, 1 FFP and platelets while in the OR. s/p right femur IMN s/p exfix left elbow s/p ORIF left patella right patella fx nonop pelvic fxs Latest surgical intervention- Status post Left elbow ex fix Per Ortho, nonoperative management of right patella and pelvic fractures. Patient will maintain nonweightbearing on left upper extremity/bilateral lower extremity with daily dressing changes to the right femur, left knee, pinned care twice a day of left elbow. Patient will also continue to follow-up with Dr. Gentile if discharged home. - Xarelto 10 mg daily - Continue Physical therapy/occupational therapy - Physical therapy recommends specialty bed auto rolling. Pressure relief. - Air mattress bed with altered rolling - Pain management [place]'s 7.5/325 mg - May transfer to rehabilitation. Consulted rehabilitation medicine for further management. - Continue wound care as per Ortho recommendation. - TLSO brace ordered per recommendation. Continue to encourage OOB sitting up. Hypothyroidism - continue levothyroxine 150mg daily Constipation. Continue pericolace twice a day and prn UTI - continue Cipro until completed 08/16/59. Denies dysuria, hematuria. Afebrile. DVT Prop Xarelto GI Prop Protonix Discussed with patient, nursing and Dr. Yu Problem Qualifiers (1) Femur fracture, right: (2) Elbow fracture: (3) T12 vertebral fracture: Isabella Luther Aug 16, 2016 10:33 Sam Yu MD Aug 22, 2016 09:31
--- NOTE | 2016-08-16 15:33 | HHI.PYPN ---
Subjective Remarks Patient seen and examined. Chart reviewed. Case discussed with nursing staff. On my examination today, the patient reports that he made a suicide attempt initially because "nothing was making sense. People were driving backwards on the freeway." He says that this is the first time and recent memory that this confusional state has happened. He denies any ongoing confusion. He denies any suicidal ideation. He denies any side effects from medications, which he feels are working well. Review of Systems Other No somatic complaints today Objective Alert: Yes [place]: Person, Place, Date Mood: Calm Affect: Euthymic Memory Intact: Comment (not formally assessed today) Hallucinations: Other (no AVH) Delusions: No Delusion Type: Other (no emily delusional material) Suicidal: Ideation (denies suicidal ideation) Homicidal: Ideation (no homicidal ideation) Insight/Judgement Fair Remarks No abnormal motor movements noted. Labs Labs reviewed. No new labs. Vitals/IOs Vital Signs Date Time Temp Pulse Resp B/P Pulse Ox O2 Delivery O2 Flow Rate FiO2 08/16/16 06:23 97.5 98 16 106/59 97 Intake and Output 08/15/16 08/15/16 08/16/16 08:00 16:00 00:00 Intake Total 360 ml 1440 ml 1080 ml Output Total 950 ml Balance 360 ml 490 ml 1080 ml Assessment & Plan Problem List: (1) Schizoaffective disorder, bipolar type ICD Code: F25.0 Assessment & Plan Continue current psychiatric medications as ordered. Appreciate hospitalist an orthopedic consultation. Continue other medications and care as ordered. Justification for Cont. Inpt. Risk for decompensation Discharge Planning Per Dr. Sanford Request HC Surrog/Guard Advoc?: No Robson Michael MD Aug 16, 2016 15:33
[2016-08-16 18:00] VITALS: BP 114/76; PULSE 100; RESP 18; TEMP 97.6; O2SAT 97
[2016-08-16] MEDS: QUEtiapine FUMARATE 300 MG TAB PO SCH (20:14)
[2016-08-17] MEDS: LEVOTHYROXINE SODIUM 150 MCG TAB PO SCH (05:39)
[2016-08-17 06:00] VITALS: BP 114/62; PULSE 88; RESP 16; TEMP 97.7; O2SAT 98
[2016-08-17 08:09] LABS: AUTOMATED NEUTROPHIL # 3.2 TH/MM3 (1.8-7.7); BASOPHIL # 0.1 TH/MM3 (0-0.2); BASOPHIL % 1.5 % (0.0-2.0); EOSINOPHIL # 0.2 TH/MM3 (0-0.4); EOSINOPHIL % 4.4 % (0.0-4.0); HEMATOCRIT 36.1 % (39.0-51.0); HEMO FLAGS DIFF FINAL; LYMPH % 20.8 % (9.0-44.0); MEAN CELL VOLUME 87.5 FL (80.0-100.0); MEAN CORPUSCULAR HEMOGLOBIN 29.8 PG (27.0-34.0); MEAN CORPUSCULAR HGB CONC 34.1 % (32.0-36.0); MONO % 8.5 % (0.0-8.0); NEUT % 64.8 % (16.0-70.0); PLATELET COUNT 232 TH/MM3 (150-450); RED BLOOD COUNT 4.13 MIL/MM3 (4.50-5.90); RED CELL DISTRIBUTION WIDTH 15.3 % (11.6-17.2); WHITE BLOOD COUNT 4.9 TH/MM3 (4.0-11.0)
[2016-08-17] MEDS: DOCUSATE SODIUM 50 MG/SENNA 8.6 MG TAB PO SCH ×2 (08:14→21:12)
[2016-08-17] MEDS: RIVAROXABAN 10 MG TAB PO SCH (08:14)
[2016-08-17] MEDS: PANTOPRAZOLE SOD 40 MG DELAYED RELEASE TAB PO SCH (08:14)
[2016-08-17] MEDS: ZIPRASIDONE HCL 40 MG CAP PO SCH ×2 (08:14→17:08)
[2016-08-17] MEDS: LITHIUM CARBONATE 300 MG CAP PO SCH ×2 (08:14→21:12)
[2016-08-17 08:32] LABS: BICARBONATE 29.5 MEQ/L (21.0-32.0); POTASSIUM 3.9 MEQ/L (3.5-5.1)
--- NOTE | 2016-08-17 10:58 | HHI.PR ---
Subjective Remarks Follow-up visit trauma, multiple fractures, hypothyroidism. Patient seen today , resting in bed in no acute distress offer no medical complaints. Eating and drinking well, last bowel movement 08/15/2016. Objective Vitals Vital Signs Date Time Temp Pulse Resp B/P Pulse Ox O2 Delivery O2 Flow Rate FiO2 08/17/16 06:00 97.7 88 16 114/62 98 08/16/16 18:00 97.6 100 18 114/76 97 I/O 08/16/16 08/16/16 08/16/16 08/17/16 08/17/16 08/17/16 07:00 15:00 23:00 07:00 15:00 23:00 Intake Total 720 ml 1680 ml 480 ml Output Total 900 ml 1400 ml 1000 ml Balance -900 ml 720 ml 280 ml -520 ml Intake Oral 720 ml 1680 ml 480 ml Output Urine Total 900 ml 1400 ml 1000 ml # Voids 2 # Bowel Movements 0 Result Diagram: 08/17/1646 08/17/1646 Objective Remarks GENERAL: This is a well-nourished, well-developed patient, in no apparent distress. SKIN: No rashes, ecchymoses or lesions. Cool and dry. HEAD: Atraumatic. Normocephalic. No temporal or scalp tenderness. EYES: Pupils equal round and reactive. Extraocular motions intact. No scleral icterus. No injection or drainage. ENT: Nose without bleeding. Throat without erythema. Uvula midline. Airway patent. NECK: Trachea midline. No JVD or lymphadenopathy. Supple, nontender, no meningeal signs. CARDIOVASCULAR: Regular rate and rhythm without murmurs, gallops, or rubs. RESPIRATORY: Diminished bases. No wheezes, rales, or rhonchi. GASTROINTESTINAL: Abdomen soft, non-tender, nondistended. No hepato-splenomegaly , or palpable masses. No guarding. MUSCULOSKELETAL: Extremities without clubbing, cyanosis, bilateral lower extremity trace edema. Able to wiggle bilateral toes and move bilateral foot weakly. Left upper extremity with ex-fix. NEUROLOGICAL: Awake and alert. Flat affect. - Improved smiling today. Oriented to self, and place. Sensory grossly within normal limits. Normal speech. Procedures s/p right femur IMN s/p exfix left elbow s/p ORIF left patella right patella fx A/P Problem List: (1) Schizoaffective disorder, bipolar type ICD Code: F25.0 Status: Acute (2) Femur fracture, right ICD Code: S72.91XA Status: Acute (3) Elbow fracture ICD Code: S42.409A Status: Acute (4) Patella fracture ICD Code: S82.009A Status: Acute (5) T12 vertebral fracture ICD Code: S22.089A Status: Acute (6) Hypothyroidism ICD Code: E03.9 Status: Chronic Assessment and Plan No changes from medical perspective continue current care. This a 50-year-old gentleman with a past medical history which includes hypothyroidism, bipolar and schizophrenia. Patient is status post trauma alert on 07/12/2016 secondary to suicide attempt patient jumped off a bridge [place] railroad tracks. Patient sustained multiple fractures has been taken to the OR initially was in intensive care unit and intubated for airway protection as well as pain management. Patient was extubated 07/13/2016. Bipolar, schizophrenia - managed by psychiatry team Multiple surgical interventions including: Patient received 4 units PRBCs, 1 FFP and platelets while in the OR. s/p right femur IMN s/p exfix left elbow s/p ORIF left patella right patella fx nonop pelvic fxs Latest surgical intervention- Status post Left elbow ex fix Per Ortho, nonoperative management of right patella and pelvic fractures. Patient will maintain nonweightbearing on left upper extremity/bilateral lower extremity with daily dressing changes to the right femur, left knee, pinned care twice a day of left elbow. Patient will also continue to follow-up with Dr. Gentile if discharged home. - Xarelto 10 mg daily - Continue Physical therapy/occupational therapy - Physical therapy recommends specialty bed auto rolling. Pressure relief. - Air mattress bed with altered rolling - Pain management [place]'s 7.5/325 mg - May transfer to rehabilitation. Consulted rehabilitation medicine for further management. - Continue wound care as per Ortho recommendation. - TLSO brace ordered per recommendation. Continue to encourage OOB sitting up. Hypothyroidism - continue levothyroxine TSH level 26.4 T4 0.91 Increase levothyroxine 200 mg daily- recommend patient have recheck in approximately 8 weeks Constipation- resolved. Continue pericolace twice a day and prn UTI - continue Cipro until completed 08/16/59. Denies dysuria, hematuria. Afebrile. CBC and BMP reviewed, WBC 4.9, hgb 12.3 which us up from 11.1, DVT Prop Xarelto GI Prop Protonix Discussed with patient, nursing and Dr. Yu Problem Qualifiers (1) Femur fracture, right: (2) Elbow fracture: (3) T12 vertebral fracture: Isabella Luther Aug 17, 2016 10:58 Sam Yu MD Aug 22, 2016 09:31
[2016-08-17 11:47] LABS: FREE T4 0.91 NG/DL (0.76-1.46)
--- NOTE | 2016-08-17 16:04 | HHI.PYPN ---
Subjective Remarks Patient seen and examined. Chart reviewed. Case discussed with nursing staff. No behavioral problems reported. Patient's is at the bedside, remains for the interview per patient preference. On my examination today, the patient complained of feeling somewhat nauseated today and had an episode of nonbloody, nonbilious emesis. Still taking good oral intake. He also complains of feeling somewhat groggy in the morning and dosing in the afternoon. He denies any suicidal ideation. Denies any audiovisual hallucinations. Denies any side effects from medications otherwise. No other issues noted. Review of Systems Other Besides above, no somatic complaints. Objective Alert: Yes [place]: Person, Place (at least) Mood: Calm Affect: Blunted Memory Intact: Comment (not formally assessed today) Hallucinations: Other (Denies AVH) Delusions: No Delusion Type: Other (No delusions) Suicidal: Ideation (Denies SI) Homicidal: Ideation (No HI) Insight/Judgement Unchanged from previous assessment Remarks No abnormal motor movements noted Labs Test 08/17/16 07:46 White Blood Count 4.9 TH/MM3 Red Blood Count 4.13 MIL/MM3 Hemoglobin 12.3 GM/DL Hematocrit 36.1 % Mean Corpuscular Volume 87.5 FL Mean Corpuscular Hemoglobin 29.8 PG Mean Corpuscular Hemoglobin 34.1 % Concent Red Cell Distribution Width 15.3 % Platelet Count 232 TH/MM3 Mean Platelet Volume 8.8 FL Neutrophils (%) (Auto) 64.8 % Lymphocytes (%) (Auto) 20.8 % Monocytes (%) (Auto) 8.5 % Eosinophils (%) (Auto) 4.4 % Basophils (%) (Auto) 1.5 % Neutrophils # (Auto) 3.2 TH/MM3 Lymphocytes # (Auto) 1.0 TH/MM3 Monocytes # (Auto) 0.4 TH/MM3 Eosinophils # (Auto) 0.2 TH/MM3 Basophils # (Auto) 0.1 TH/MM3 CBC Comment DIFF FINAL Differential Comment Sodium Level 141 MEQ/L Potassium Level 3.9 MEQ/L Chloride Level 103 MEQ/L Carbon Dioxide Level 29.5 MEQ/L Anion Gap 9 MEQ/L Blood Urea Nitrogen 15 MG/DL Creatinine 1.01 MG/DL Estimat Glomerular Filtration 81 ML/MIN Rate Random Glucose 91 MG/DL Calcium Level 9.4 MG/DL Free Thyroxine 0.91 NG/DL Thyroid Stimulating Hormone 26.400 uIU/ML 3rd Gen Labs reviewed. Vitals/IOs Vital Signs Date Time Temp Pulse Resp B/P Pulse Ox O2 Delivery O2 Flow Rate FiO2 08/17/16 06:00 97.7 88 16 114/62 98 Intake and Output 08/16/16 08/16/16 08/17/16 08:00 16:00 00:00 Intake Total 120 ml 600 ml 1680 ml Output Total 900 ml 1400 ml Balance -780 ml 600 ml 280 ml Assessment & Plan Problem List: (1) Schizoaffective disorder, bipolar type ICD Code: F25.0 Assessment & Plan Psychotropic medications reviewed. Patient's report of grogginess could be medication related. Could consider moving more of his lithium dose to nighttime or dosing his Seroquel earlier in the evening if this sensation persists. I will ask the nurse to have the hospitalist follow up on the patient 's complaints of nausea and vomiting. I will check an EKG for QTc and case we want to use Zofran as this can prolong the QTC in this patient on multiple antipsychotics. Continue other medications and care as ordered. Justification for Cont. Inpt. Complicating conditions Discharge Planning Per Dr. Kaba Request HC Surrog/Guard Advoc?: No Robson Michael MD Aug 17, 2016 16:04
[2016-08-17 18:18] VITALS: BP 122/84; PULSE 96; RESP 20; TEMP 98.1; O2SAT 97
[2016-08-17] MEDS: QUEtiapine FUMARATE 300 MG TAB PO SCH (21:12)
[2016-08-18 05:55] VITALS: BP 125/78; PULSE 82; RESP 18; TEMP 97.9; O2SAT 97
--- NOTE | 2016-08-18 09:37 | EKG ---
Date Performed: 08/17/2016 Time Performed: 16:32:35 PTAGE: 40 years EKG: Sinus rhythm NORMAL ECG NO PREVIOUS TRACING DOCTOR: Robson Rivera Interpretating Date/Time 08/18/2016 09:35:55
[2016-08-18] MEDS: DOCUSATE SODIUM 50 MG/SENNA 8.6 MG TAB PO SCH ×2 (09:45→21:13)
[2016-08-18] MEDS: RIVAROXABAN 10 MG TAB PO SCH (09:45)
[2016-08-18] MEDS: ZIPRASIDONE HCL 40 MG CAP PO SCH ×2 (09:45→21:17)
[2016-08-18] MEDS: PANTOPRAZOLE SOD 40 MG DELAYED RELEASE TAB PO SCH (09:45)
[2016-08-18] MEDS: LITHIUM CARBONATE 300 MG CAP PO SCH ×2 (09:45→21:13)
--- NOTE | 2016-08-18 12:16 | HHI.PR ---
Subjective Remarks Follow-up visit trauma, multiple fractures, hypothyroidism. Patient seen today , resting in bed in no acute distress offer no medical complaints. Eating and drinking well, last bowel movement 08/15/2016. Objective Vitals Vital Signs Date Time Temp Pulse Resp B/P Pulse Ox O2 Delivery O2 Flow Rate FiO2 08/18/16 05:55 97.9 82 18 125/78 97 08/17/16 18:18 98.1 96 20 122/84 97 I/O 08/17/16 08/17/16 08/17/16 08/18/16 08/18/16 08/18/16 07:00 15:00 23:00 07:00 15:00 23:00 Intake Total 480 ml 840 ml 720 ml Output Total 1000 ml 700 ml Balance -520 ml 840 ml 20 ml Intake Oral 480 ml 840 ml 720 ml Output Urine Total 1000 ml 700 ml # Voids 1 2 # Bowel Movements 0 Result Diagram: 08/17/16 0746 08/17/16 0746 Objective Remarks GENERAL: This is a well-nourished, well-developed patient, in no apparent distress. SKIN: No rashes, ecchymoses or lesions. Cool and dry. HEAD: Atraumatic. Normocephalic. No temporal or scalp tenderness. EYES: Pupils equal round and reactive. Extraocular motions intact. No scleral icterus. No injection or drainage. ENT: Nose without bleeding. Throat without erythema. Uvula midline. Airway patent. NECK: Trachea midline. No JVD or lymphadenopathy. Supple, nontender, no meningeal signs. CARDIOVASCULAR: Regular rate and rhythm without murmurs, gallops, or rubs. RESPIRATORY: Diminished bases. No wheezes, rales, or rhonchi. GASTROINTESTINAL: Abdomen soft, non-tender, nondistended. No hepato-splenomegaly , or palpable masses. No guarding. MUSCULOSKELETAL: Extremities without clubbing, cyanosis, bilateral lower extremity trace edema. Able to wiggle bilateral toes and move bilateral foot weakly. Left upper extremity with ex-fix. NEUROLOGICAL: Awake and alert. Flat affect. - Improved smiling today. Oriented to self, and place. Sensory grossly within normal limits. Normal speech. Procedures s/p right femur IMN s/p exfix left elbow s/p ORIF left patella right patella fx A/P Problem List: (1) Schizoaffective disorder, bipolar type ICD Code: F25.0 Status: Acute (2) Femur fracture, right ICD Code: S72.91XA Status: Acute (3) Elbow fracture ICD Code: S42.409A Status: Acute (4) Patella fracture ICD Code: S82.009A Status: Acute (5) T12 vertebral fracture ICD Code: S22.089A Status: Acute (6) Hypothyroidism ICD Code: E03.9 Status: Chronic Assessment and Plan No changes from medical perspective continue current care. This a 50-year-old gentleman with a past medical history which includes hypothyroidism, bipolar and schizophrenia. Patient is status post trauma alert on 07/12/2016 secondary to suicide attempt patient jumped off a bridge onto railroad tracks. Patient sustained multiple fractures has been taken to the OR initially was in intensive care unit and intubated for airway protection as well as pain management. Patient was extubated 07/13/2016. Bipolar, schizophrenia - managed by psychiatry team Multiple surgical interventions including: Patient received 4 units PRBCs, 1 FFP and platelets while in the OR. s/p right femur IMN s/p exfix left elbow s/p ORIF left patella right patella fx nonop pelvic fxs Latest surgical intervention- Status post Left elbow ex fix Per Ortho, nonoperative management of right patella and pelvic fractures. Patient will maintain nonweightbearing on left upper extremity/bilateral lower extremity with daily dressing changes to the right femur, left knee, pinned care twice a day of left elbow. Patient will also continue to follow-up with Dr. Gentile if discharged home. - Xarelto 10 mg daily - Continue Physical therapy/occupational therapy - Physical therapy recommends specialty bed auto rolling. Pressure relief. - Air mattress bed with altered rolling - Pain management [place]'s 7.5/325 mg - May transfer to rehabilitation. Consulted rehabilitation medicine for further management. - Continue wound care as per Ortho recommendation. - TLSO brace ordered per recommendation. Continue to encourage OOB sitting up. Hypothyroidism - continue levothyroxine TSH level 26.4 T4 0.91 Increase levothyroxine 200 mg daily- recommend patient have recheck in approximately 8 weeks Constipation- resolved. Continue pericolace twice a day and prn UTI - continue Cipro until completed 08/16/59. Denies dysuria, hematuria. Afebrile. CBC and BMP reviewed, WBC 4.9, hgb 12.3 which us up from 11.1, DVT Prop Xarelto GI Prop Protonix Discussed with patient, nursing Written by Isabella Luther, acting as scribe for Dr. Madrid on 08/18/16 at 12:15. The documentation accurately reflects the work performed [id number] by me on at 16:37. Problem Qualifiers (1) Femur fracture, right: (2) Elbow fracture: (3) T12 vertebral fracture: Isabella Luther Aug 18, 2016 12:16 Larry Madrid MD Aug 18, 2016 16:37
--- NOTE | 2016-08-18 13:40 | HHI.PYPN ---
Subjective Remarks Patient was seen for evaluation today along with nurse in charge Kelly, documentation for over the weekend was reviewed, today patient seems to be more communicative the last week, he says that he feels okay today, reports good mood , good energy, good appetite, he endorses good motivation to continue his medical and psychiatric treatment and recommendations. He says that he is in a good spirit and hopeful at this ago to be better in the future for him. 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 He denies suicidal and homicidal ideation, he denies visual and auditory hallucinations. Patient is oriented 3, no agitation, behavioral or mood dysregulation observed or reported. Review of Systems Other No somatic complaints Objective Alert: Yes [place]: Person, Place (at least) Mood: Calm Affect: Blunted Memory Intact: Comment (not formally assessed today) Hallucinations: Other (Denies AVH) Delusions: No Delusion Type: Other (No delusions) Suicidal: Ideation (Denies SI) Homicidal: Ideation (No HI) Insight/Judgement Good Vitals/IOs Vital Signs Date Time Temp Pulse Resp B/P Pulse Ox O2 Delivery O2 Flow Rate FiO2 08/18/16 05:55 97.9 82 18 125/78 97 Intake and Output 08/17/16 08/17/16 08/18/16 08:00 16:00 00:00 Intake Total 480 ml 840 ml Output Total 1000 ml Balance -520 ml 840 ml Assessment & Plan Problem List: (1) Schizoaffective disorder, bipolar type Assessment & Plan: Patient will continue his psychiatric hospitalization for stabilization, no changes in psychotropics today. ICD Code: F25.0 Assessment & Plan Estimated LOS: days Justification for Cont. Inpt. Patient has an elevated risk to decompensate out of structure environment. Request HC Surrog/Guard Advoc?: Dariel Newsome MD Aug 18, 2016 13:40
[2016-08-18 17:43] VITALS: BP 121/78; PULSE 100; RESP 16; TEMP 98.2; O2SAT 94
[2016-08-18] MEDS: QUEtiapine FUMARATE 300 MG TAB PO SCH (21:14)
[2016-08-19 06:34] VITALS: BP 115/70; PULSE 96; RESP 18; TEMP 98.4; O2SAT 96
[2016-08-19] MEDS: LEVOTHYROXINE SODIUM 200 MCG TAB PO SCH (06:41)
[2016-08-19] MEDS: DOCUSATE SODIUM 50 MG/SENNA 8.6 MG TAB PO SCH ×2 (08:55→21:15)
[2016-08-19] MEDS: ZIPRASIDONE HCL 40 MG CAP PO SCH ×2 (08:55→17:36)
[2016-08-19] MEDS: PANTOPRAZOLE SOD 40 MG DELAYED RELEASE TAB PO SCH (08:55)
[2016-08-19] MEDS: LITHIUM CARBONATE 300 MG CAP PO SCH ×2 (08:56→21:15)
[2016-08-19] MEDS: RIVAROXABAN 10 MG TAB PO SCH (08:56)
--- NOTE | 2016-08-19 10:14 | HHI.PYPN ---
Subjective Remarks Patient was seen today for psychiatric reevaluation, he was found sitting down in his orthopedical chair, patient reports good mood, he says that he feels very good today, patient is communicative, motivated, his affect is brighter today. He denies depressive symptoms, he denies anxiety, he denies perceptual disturbances, denies paranoia and delusions. He denies visual and auditory hallucinations, he denies suicidal and homicidal ideation. Patient is fully oriented 3, no gross cognitive impairment or delirium observed. Patient states that "the little fear and apprehension"that he had at night before going to sleep "with the idea that if I become unconscious for a while but psychosis can come back"is now much better. Patient states that if his mind is clear he can control his thoughts and he has a full insight of the possibility of becoming paranoid and delusional and he can even identify and fight those thoughts. No aggressive behavior, agitation, mood or behavioral dysregulation reported in the last 24 hours. Review of Systems Other No somatic complaints at this moment Objective Alert: Yes [place]: Person, Place (at least) Mood: Calm Affect: Blunted Memory Intact: Comment (not formally assessed today) Hallucinations: Other (Denies AVH) Delusions: No Delusion Type: Other (No delusions) Suicidal: Ideation (Denies SI) Homicidal: Ideation (No HI) Insight/Judgement Good Vitals/IOs Vital Signs Date Time Temp Pulse Resp B/P Pulse Ox O2 Delivery O2 Flow Rate FiO2 08/19/16 06:34 98.4 96 18 115/70 96 Intake and Output 08/18/16 08/18/16 08/19/16 08:00 16:00 00:00 Intake Total 720 ml 240 ml 1440 ml Output Total 700 ml 1900 ml Balance 20 ml 240 ml -460 ml Assessment & Plan Problem List: (1) Schizoaffective disorder, bipolar type Assessment & Plan: Patient continues to show significant response to psychotropics and psychotherapy. Patient has been medication compliant, hasn't report any side effects. He missed to continue psychiatric hospitalization for stabilization and I also to be able to coordinate a safe discharge. Insight oriented psychotherapy provided. ICD Code: F25.0 Assessment & Plan Estimated LOS: days Justification for Cont. Inpt. Patient is still pose at very high probability to decompensate out of an structure environment. Request HC Surrog/Guard Advoc?: No Juvenal,Dariel B. MD Aug 19, 2016 10:14
--- NOTE | 2016-08-19 10:53 | HHI.PR ---
Subjective Remarks Follow up visit trauma multiple fractures, depression, suicidal ideation. Pt. seen today sitting in chair. TLSO brace in place. States has not had BM x2-3 days. Denies other issues. Denies SOB/ dyspnea, n/v, dysuria. Denies fever, chills, chest pain, palp, headache. Objective Vitals Vital Signs Date Time Temp Pulse Resp B/P Pulse Ox O2 Delivery O2 Flow Rate FiO2 08/19/16 06:34 98.4 96 18 115/70 96 08/18/16 17:43 98.2 100 16 121/78 94 I/O 08/18/16 08/18/16 08/18/16 08/19/16 08/19/16 08/19/16 07:00 15:00 23:00 07:00 15:00 23:00 Intake Total 720 ml 240 ml 360 ml 1440 ml 480 ml Output Total 700 ml 2650 ml Balance 20 ml 240 ml 360 ml -1210 ml 480 ml Intake Oral 720 ml 240 ml 360 ml 1440 ml 480 ml Output Urine Total 700 ml 2650 ml # Voids 2 # Bowel Movements 0 0 Result Diagram: 08/17/16 0746 08/17/16 0746 Imaging Last Impressions Wrist X-Ray 08/04/16 0000 Signed Impressions: Service Date/Time: Thursday, August 04, 2016 07:59 - CONCLUSION: Non- displaced fracture involving the distal radius and radiocarpal joint. Julius Barillas MD FACR Knee X-Ray 07/29/16 0000 Signed Impressions: Service Date/Time: Friday, July 29, 2016 10:14 - CONCLUSION: 1. Stable examination of the left knee. The nondisplaced left proximal fibular fracture has a stable appearance. 2. The patella fracture has undergone prior ORIF. There is stable articular step off at the superior pole posteriorly. Moses Buenrostro MD Femur X-Ray 07/29/16 0000 Signed Impressions: Service Date/Time: Friday, July 29, 2016 10:19 - CONCLUSION: Stable examination of the right femur in this patient post recent right femur ORIF for treatment of a intertrochanteric fracture in distal femoral diaphysis fracture. There is also a comminuted patella fracture present. Moses Buenrostro MD Elbow X-Ray 07/29/16 0000 Signed Impressions: Service Date/Time: Friday, July 29, 2016 10:37 - CONCLUSION: 1. Postsurgical changes as above. Robson Ghotra MD Abdomen X-Ray 07/29/16 0000 Signed Impressions: Service Date/Time: Friday, July 29, 2016 18:13 - CONCLUSION: Moderate stool burden suggesting constipation. No dilated loops of bowel. Bruno Brito Jr., MD Objective Remarks GENERAL: This is a well-nourished, well-developed patient, in no apparent distress. SKIN: No rashes, ecchymoses or lesions. Cool and dry. HEAD: Atraumatic. Normocephalic. No temporal or scalp tenderness. EYES: Pupils equal round and reactive. Extraocular motions intact. No scleral icterus. No injection or drainage. ENT: Nose without bleeding. Throat without erythema. Uvula midline. Airway patent. NECK: Trachea midline. No JVD or lymphadenopathy. Supple, nontender, no meningeal signs. CARDIOVASCULAR: Regular rate and rhythm without murmurs, gallops, or rubs. RESPIRATORY: Diminished bases. No wheezes, rales, or rhonchi. GASTROINTESTINAL: Abdomen soft, non-tender, nondistended. No hepato-splenomegaly , or palpable masses. No guarding. MUSCULOSKELETAL: Extremities without clubbing, cyanosis, bilateral lower extremity trace edema. Able to wiggle bilateral toes and move bilateral foot weakly. Left upper extremity with ex-fix. NEUROLOGICAL: Awake and alert. Flat affect. - Improved smiling today. Oriented to self, and place. Sensory grossly within normal limits. Normal speech. Procedures s/p right femur IMN s/p exfix left elbow s/p ORIF left patella right patella fx A/P Problem List: (1) Schizoaffective disorder, bipolar type ICD Code: F25.0 Status: Acute (2) Femur fracture, right ICD Code: S72.91XA Status: Acute (3) Elbow fracture ICD Code: S42.409A Status: Acute (4) Patella fracture ICD Code: S82.009A Status: Acute (5) T12 vertebral fracture ICD Code: S22.089A Status: Acute (6) Hypothyroidism ICD Code: E03.9 Status: Chronic Assessment and Plan This a 50-year-old gentleman with a past medical history which includes hypothyroidism, bipolar and schizophrenia. Patient is status post trauma alert on 07/12/2016 secondary to suicide attempt patient jumped off a bridge onto railroad tracks. Patient sustained multiple fractures has been taken to the OR initially was in intensive care unit and intubated for airway protection as well as pain management. Patient was extubated 07/13/2016. Bipolar, schizophrenia - managed by psychiatry team Multiple surgical interventions including: Patient received 4 units PRBCs, 1 FFP and platelets while in the OR. s/p right femur IMN s/p exfix left elbow s/p ORIF left patella right patella fx nonop pelvic fxs Latest surgical intervention- Status post Left elbow ex fix Per Ortho, nonoperative management of right patella and pelvic fractures. Patient will maintain nonweightbearing on left upper extremity/bilateral lower extremity with daily dressing changes to the right femur, left knee, pinned care twice a day of left elbow. Patient will also continue to follow-up with Dr. Gentile if discharged home. - Xarelto 10 mg daily - Continue Physical therapy/occupational therapy - Physical therapy recommends specialty bed auto rolling. Pressure relief. - Air mattress bed with altered rolling - Pain management [place]'s 7.5/325 mg - May transfer to rehabilitation. Consulted rehabilitation medicine for further management. - Continue wound care as per Ortho recommendation. - TLSO brace ordered per recommendation. Continue to encourage OOB sitting up. Hypothyroidism - continue levothyroxine TSH level 26.4 T4 0.91 Increase levothyroxine 200 mg daily- recommend patient have recheck in approximately 8 weeks Constipation- Continue pericolace twice a day and prn. Ducolax x1 dose now. Will start miralax daily. UTI - continue Cipro until completed 08/16/59. Denies dysuria, hematuria. Afebrile. DVT Prop Xarelto GI Prop Protonix Discuss with patient and nursing Written by Sera Jameson, acting as scribe for Dr. Madrid on 08/19/16 at 10: 00. The documentation accurately reflects the work performed [id number] by me on at 16:16. Problem Qualifiers (1) Femur fracture, right: (2) Elbow fracture: (3) T12 vertebral fracture: Sera Brandon Aug 19, 2016 10:53 Larry Madrid MD Aug 19, 2016 16:16
[2016-08-19] MEDS ORDERED: BISACODYL 10 MG SUPP RECTAL ONE (12:00)
[2016-08-19] MEDS: POLYETHYLENE GLYCOL 17 GM PKG PO SCH (17:36)
[2016-08-19] MEDS: QUEtiapine FUMARATE 300 MG TAB PO SCH (21:15)
[2016-08-20 05:59] VITALS: BP 84/61; PULSE 113; RESP 15; TEMP 98.3; O2SAT 94
[2016-08-20] MEDS: LEVOTHYROXINE SODIUM 200 MCG TAB PO SCH (06:23)
[2016-08-20] MEDS: ZIPRASIDONE HCL 40 MG CAP PO SCH ×2 (08:23→17:47)
[2016-08-20] MEDS: PANTOPRAZOLE SOD 40 MG DELAYED RELEASE TAB PO SCH (08:24)
[2016-08-20] MEDS: LITHIUM CARBONATE 300 MG CAP PO SCH ×2 (08:24→21:28)
[2016-08-20] MEDS: DOCUSATE SODIUM 50 MG/SENNA 8.6 MG TAB PO SCH ×2 (08:24→21:28)
[2016-08-20] MEDS: POLYETHYLENE GLYCOL 17 GM PKG PO SCH (08:24)
[2016-08-20] MEDS: RIVAROXABAN 10 MG TAB PO SCH (08:24)
[2016-08-20 10:16] VITALS: BP 128/80; PULSE 104; RESP 16; TEMP 98.5; O2SAT 95
--- NOTE | 2016-08-20 11:40 | HHI.PR ---
Subjective Remarks Follow up visit trauma multiple fractures, depression, suicidal ideation. Patient seen today. Reports he has bowel movement this morning. Unable to tell whether to bowel movement is large or small. Continues to have abdominal distention. Denies abdominal pain, abdominal cramping, nausea, vomiting, diarrhea. Denies fevers, chills. Denies chest pain, palpitations, headache, dizziness. As per RN, right hip wound with slight opening, not draining, no pain, no erythema. Objective Vitals Vital Signs Date Time Temp Pulse Resp B/P Pulse Ox O2 Delivery O2 Flow Rate FiO2 08/20/16 10:16 98.5 104 16 128/80 95 08/20/16 05:59 98.3 113 15 84/61 94 I/O 08/19/16 08/19/16 08/19/16 08/20/16 08/20/16 08/20/16 07:00 15:00 23:00 07:00 15:00 23:00 Intake Total 1440 ml 480 ml 240 ml 600 ml Output Total 2650 ml 1500 ml Balance -1210 ml 480 ml 240 ml -900 ml Intake Oral 1440 ml 480 ml 240 ml 600 ml Output Urine Total 2650 ml 1500 ml # Bowel Movements 0 2 Result Diagram: 08/17/1646 08/17/1646 Objective Remarks GENERAL: This is a well-nourished, well-developed patient, in no apparent distress. SKIN: No rashes, ecchymoses or lesions. Cool and dry. HEAD: Atraumatic. Normocephalic. No temporal or scalp tenderness. EYES: Pupils equal round and reactive. Extraocular motions intact. No scleral icterus. No injection or drainage. ENT: Nose without bleeding. Throat without erythema. Uvula midline. Airway patent. NECK: Trachea midline. No JVD or lymphadenopathy. Supple, nontender, no meningeal signs. CARDIOVASCULAR: Regular rate and rhythm without murmurs, gallops, or rubs. RESPIRATORY: Diminished bases. No wheezes, rales, or rhonchi. GASTROINTESTINAL: Abdomen soft, non-tender, nondistended. No hepato-splenomegaly , or palpable masses. No guarding. MUSCULOSKELETAL: Extremities without clubbing, cyanosis, bilateral lower extremity trace edema. Able to wiggle bilateral toes and move bilateral foot weakly. Left upper extremity with ex-fix. Right hip incision site CDI, small mid opening, no drainage, no erythema. NEUROLOGICAL: Awake and alert. Flat affect. - Improved smiling today. Oriented to self, and place. Sensory grossly within normal limits. Normal speech. Procedures s/p right femur IMN s/p exfix left elbow s/p ORIF left patella right patella fx A/P Problem List: (1) Schizoaffective disorder, bipolar type ICD Code: F25.0 Status: Acute (2) Femur fracture, right ICD Code: S72.91XA Status: Acute (3) Elbow fracture ICD Code: S42.409A Status: Acute (4) Patella fracture ICD Code: S82.009A Status: Acute (5) T12 vertebral fracture ICD Code: S22.089A Status: Acute (6) Hypothyroidism ICD Code: E03.9 Status: Chronic Assessment and Plan This a 50-year-old gentleman with a past medical history which includes hypothyroidism, bipolar and schizophrenia. Patient is status post trauma alert on 07/12/2016 secondary to suicide attempt patient jumped off a bridge [place] railroad tracks. Patient sustained multiple fractures has been taken to the OR initially was in intensive care unit and intubated for airway protection as well as pain management. Patient was extubated 07/13/2016. Bipolar, schizophrenia - managed by psychiatry team. Agent with transient hypotension likely related to Seroquel. We will monitor Multiple surgical interventions including: Patient received 4 units PRBCs, 1 FFP and platelets while in the OR. s/p right femur IMN s/p exfix left elbow s/p ORIF left patella right patella fx nonop pelvic fxs Latest surgical intervention- Status post Left elbow ex fix Per Ortho, nonoperative management of right patella and pelvic fractures. Patient will maintain nonweightbearing on left upper extremity/bilateral lower extremity with daily dressing changes to the right femur, left knee, pinned care twice a day of left elbow. Patient will also continue to follow-up with Dr. Gentile if discharged home. - Xarelto 10 mg daily - Continue Physical therapy/occupational therapy - Physical therapy recommends specialty bed auto rolling. Pressure relief. - Air mattress bed with altered rolling - Pain management [place]'s 7.5/325 mg - May transfer to rehabilitation. Consulted rehabilitation medicine for further management. - Continue wound care as per Ortho recommendation. - TLSO brace ordered per recommendation. Continue to encourage OOB sitting up. Hypothyroidism - continue levothyroxine TSH level 26.4 T4 0.91 Increase levothyroxine 200 mg daily- recommend patient have recheck in approximately 8 weeks Constipation- Continue pericolace twice a day and prn. MiraLAX daily. UTI - continue Cipro until completed 08/16/59. Denies dysuria, hematuria. Afebrile. DVT Prop Xarelto GI Prop Protonix Discuss with patient and nursing Written by Sera Jameson, acting as scribe for Dr. Madrid on 08/20/16 at 10: 20. The documentation accurately reflects the work performed [id number] by me on at 18:52. Problem Qualifiers (1) Femur fracture, right: (2) Elbow fracture: (3) T12 vertebral fracture: Sera Brandon Aug 20, 2016 11:40 Larry Madrid MD Aug 20, 2016 18:52
--- NOTE | 2016-08-20 14:38 | HHI.PYPN ---
Subjective Remarks Patient was seen today for psychiatric evaluation, he was found sleeping, but arousable, he explains that today he feels sad "a little bit depressed, is not easy to leave the situation all the time", but he denies anhedonia, he denies hopelessness, he denies helplessness, he denies poor appetite, he reports good sleep, he denies suicidal or homicidal ideation, he denies visual and auditory hallucinations, he denies ideas of reference, paranoia, delusions. Patient is fully oriented 3, he has been compliant with his medication, no agitation or aggressive behavior observed or reported.. Review of Systems Other No somatic complaints Objective Alert: Yes [place]: Person, Place (at least) Mood: Calm Affect: Euthymic, Blunted Memory Intact: Comment (not formally assessed today) Hallucinations: Other (Denies AVH) Delusions: No Delusion Type: Other (No delusions) Suicidal: Ideation (Denies SI) Homicidal: Ideation (No HI) Insight/Judgement fair Vitals/IOs Vital Signs Date Time Temp Pulse Resp B/P Pulse Ox O2 Delivery O2 Flow Rate FiO2 08/20/16 10:16 98.5 104 16 128/80 95 Intake and Output 08/19/16 08/19/16 08/20/16 08:00 16:00 00:00 Intake Total 360 ml 480 ml 480 ml Output Total 750 ml 750 ml Balance -390 ml 480 ml -270 ml Assessment & Plan Problem List: (1) Schizoaffective disorder, bipolar type Assessment & Plan: Would continue current psychotropics, we will start to feel application for potential discharge to retirement. Labs, vital signs, lithium level was reviewed. ICD Code: F25.0 Assessment & Plan Estimated LOS: days Justification for Cont. Inpt. Patient has a very high risk to decompensate psychiatrically and he is unable to survive independently in the community at this moment. Request HC Surrog/Guard Advoc?: No Dariel Sanford MD Aug 20, 2016 14:38
[2016-08-20 16:23] VITALS: BP 110/73; PULSE 108; RESP 18; TEMP 98.8; O2SAT 96
[2016-08-20 17:59] LABS: THYROGLOB ABS LESS THAN 1 IU/mL (< OR = 1)
[2016-08-20 18:33] VITALS: BP 110/73; PULSE 108; RESP 18; TEMP 98.8; O2SAT 96
[2016-08-20] MEDS: QUEtiapine FUMARATE 300 MG TAB PO SCH (21:28)
[2016-08-20] MEDS: MAGNESIUM HYDROXIDE SUSP 30 ML CUP PO PRN (21:29)
[2016-08-21 06:00] VITALS: BP 113/66; PULSE 105; RESP 15; TEMP 98.3; O2SAT 95
[2016-08-21] MEDS: LEVOTHYROXINE SODIUM 200 MCG TAB PO SCH (06:15)
[2016-08-21 06:48] LABS: AUTOMATED NEUTROPHIL # 7.2 TH/MM3 (1.8-7.7); BASOPHIL # 0.1 TH/MM3 (0-0.2); BASOPHIL % 0.6 % (0.0-2.0); EOSINOPHIL # 0.3 TH/MM3 (0-0.4); EOSINOPHIL % 3.4 % (0.0-4.0); HEMATOCRIT 37.1 % (39.0-51.0); HEMO FLAGS DIFF FINAL; LYMPHOCYTE # 1.4 TH/MM3 (1.0-4.8); MEAN CELL VOLUME 86.9 FL (80.0-100.0); MEAN CORPUSCULAR HEMOGLOBIN 29.3 PG (27.0-34.0); MEAN CORPUSCULAR HGB CONC 33.7 % (32.0-36.0); MONO % 8.6 % (0.0-8.0); NEUT % 73.4 % (16.0-70.0); PLATELET COUNT 249 TH/MM3 (150-450); RED BLOOD COUNT 4.26 MIL/MM3 (4.50-5.90); RED CELL DISTRIBUTION WIDTH 15.1 % (11.6-17.2); WHITE BLOOD COUNT 9.9 TH/MM3 (4.0-11.0)
[2016-08-21 07:00] LABS: BICARBONATE 30.1 MEQ/L (21.0-32.0); MAGNESIUM 2.2 MG/DL (1.5-2.5); POTASSIUM 3.9 MEQ/L (3.5-5.1)
[2016-08-21] MEDS: LITHIUM CARBONATE 300 MG CAP PO SCH ×2 (08:33→20:21)
[2016-08-21] MEDS: RIVAROXABAN 10 MG TAB PO SCH (08:33)
[2016-08-21] MEDS: PANTOPRAZOLE SOD 40 MG DELAYED RELEASE TAB PO SCH (08:33)
[2016-08-21] MEDS: ZIPRASIDONE HCL 40 MG CAP PO SCH ×2 (08:33→18:00)
[2016-08-21] MEDS: DOCUSATE SODIUM 50 MG/SENNA 8.6 MG TAB PO SCH ×2 (08:33→20:21)
[2016-08-21] MEDS: POLYETHYLENE GLYCOL 17 GM PKG PO SCH (08:33)
--- NOTE | 2016-08-21 09:19 | HHI.PR ---
Subjective Remarks Follow up visit trauma multiple fractures, depression, suicidal ideation. Patient seen today. Reports is doing well. Appears to have mildly distended abdomen but states he has bowel movement yesterday. Denies pain and discomfort. Denies SOB/ dyspnea. Denies chest pain, palpitations, headaches, dizziness. Denies fevers, chills, n/v/d. Objective Vitals Vital Signs Date Time Temp Pulse Resp B/P Pulse Ox O2 Delivery O2 Flow Rate FiO2 08/21/16 06:00 98.3 105 15 113/66 95 08/20/16 18:33 98.8 108 18 110/73 96 08/20/16 16:23 98.8 108 18 110/73 96 08/20/16 10:16 98.5 104 16 128/80 95 I/O 08/20/16 08/20/16 08/20/16 08/21/16 08/21/16 08/21/16 07:00 15:00 23:00 07:00 15:00 23:00 Intake Total 600 ml 240 ml 1200 ml 240 ml 240 ml Output Total 1500 ml 1375 ml 1 ml Balance -900 ml -1135 ml 1200 ml 239 ml 240 ml Intake Oral 600 ml 240 ml 1200 ml 240 ml 240 ml Output Urine Total 1500 ml 1375 ml Stool Total 1 ml # Voids 1 # Bowel Movements 2 Result Diagram: 08/21/1662008/21/16620 Objective Remarks GENERAL: This is a well-nourished, well-developed patient, in no apparent distress. SKIN: No rashes, ecchymoses or lesions. Cool and dry. HEAD: Atraumatic. Normocephalic. No temporal or scalp tenderness. EYES: Pupils equal round and reactive. Extraocular motions intact. No scleral icterus. No injection or drainage. ENT: Nose without bleeding. Throat without erythema. Uvula midline. Airway patent. NECK: Trachea midline. No JVD or lymphadenopathy. Supple, nontender, no meningeal signs. CARDIOVASCULAR: Regular rate and rhythm without murmurs, gallops, or rubs. RESPIRATORY: Diminished bases. No wheezes, rales, or rhonchi. GASTROINTESTINAL: Abdomen soft, non-tender, nondistended. No hepato-splenomegaly , or palpable masses. No guarding. MUSCULOSKELETAL: Extremities without clubbing, cyanosis, bilateral lower extremity trace edema. Able to wiggle bilateral toes and move bilateral foot weakly. Left upper extremity with ex-fix. Right hip incision site CDI, small mid opening, no drainage, no erythema. NEUROLOGICAL: Awake and alert. Flat affect. - Improved smiling today. Oriented to self, and place. Sensory grossly within normal limits. Normal speech. Procedures s/p right femur IMN s/p exfix left elbow s/p ORIF left patella right patella fx A/P Problem List: (1) Schizoaffective disorder, bipolar type ICD Code: F25.0 Status: Acute (2) Femur fracture, right ICD Code: S72.91XA Status: Acute (3) Elbow fracture ICD Code: S42.409A Status: Acute (4) Patella fracture ICD Code: S82.009A Status: Acute (5) T12 vertebral fracture ICD Code: S22.089A Status: Acute (6) Hypothyroidism ICD Code: E03.9 Status: Chronic Assessment and Plan This a 50-year-old gentleman with a past medical history which includes hypothyroidism, bipolar and schizophrenia. Patient is status post trauma alert on 07/12/2016 secondary to suicide attempt patient jumped off a bridge onto railroad tracks. Patient sustained multiple fractures has been taken to the OR initially was in intensive care unit and intubated for airway protection as well as pain management. Patient was extubated 07/13/2016. Bipolar, schizophrenia - managed by psychiatry team Multiple surgical interventions including: Patient received 4 units PRBCs, 1 FFP and platelets while in the OR. s/p right femur IMN s/p exfix left elbow s/p ORIF left patella right patella fx nonop pelvic fxs Latest surgical intervention- Status post Left elbow ex fix Per Ortho, nonoperative management of right patella and pelvic fractures. Patient will maintain nonweightbearing on left upper extremity/bilateral lower extremity with daily dressing changes to the right femur, left knee, pinned care twice a day of left elbow. Patient will also continue to follow-up with Dr. Gentile if discharged home. - Xarelto 10 mg daily - Continue Physical therapy/occupational therapy - Physical therapy recommends specialty bed auto rolling. Pressure relief. - Air mattress bed with altered rolling - Pain management [place]'s 7.5/325 mg - May transfer to rehabilitation when ready. Consulted rehabilitation medicine for further management, awaiting for orthopedic new orders for weightbearing status. - Continue wound care as per Ortho recommendation. - TLSO brace ordered per recommendation. Continue to encourage OOB sitting up. Hypothyroidism - continue levothyroxine TSH level 26.4 T4 0.91 Increase levothyroxine 200 mg daily- recommend patient have recheck in approximately 8 weeks Constipation- Continue pericolace twice a day and prn. MiraLAX daily. UTI - continue Cipro until completed 08/16/59. Denies dysuria, hematuria. Afebrile. Sinus tachycardia secondary to anxiety. Doubt PE patient not hypoxic and denies chest pain and shortness of breath. Patient also on chemical prophylaxis for DVT DVT Prop Xarelto GI Prop Protonix Discuss with patient and nursing Written by Sera Jameson, acting as scribe for Dr. Madrid on 08/21/16 at 09: 38. The documentation accurately reflects the work performed [id number] by me on at 18:15. Problem Qualifiers (1) Femur fracture, right: (2) Elbow fracture: (3) T12 vertebral fracture: Sera Brandon Aug 21, 2016 09:19 Larry Madrid MD Aug 22, 2016 18:16
--- NOTE | 2016-08-21 15:32 | HHI.PYPN ---
Subjective Remarks Today patient is found in his room in a very good mood, eating his lunch, he is states that he feels much better, he is waiting for bilingual patient support caseworker for half-way to start his transfer process. He denies depressive symptoms, he reports better sleep at night, he denies suicidal or homicidal ideation, he denies visual and auditory hallucinations. Patient is fully oriented 3, medication compliant. Review of Systems Other Not somatic complaint Objective Alert: Yes [place]: Person, Place (at least) Mood: Calm Affect: Euthymic, Blunted Memory Intact: Comment (not formally assessed today) Hallucinations: Other (Denies AVH) Delusions: No Delusion Type: Other (No delusions) Suicidal: Ideation (Denies SI) Homicidal: Ideation (No HI) Insight/Judgement improved Labs Test 08/21/16 06:21 White Blood Count 9.9 TH/MM3 Red Blood Count 4.26 MIL/MM3 Hemoglobin 12.5 GM/DL Hematocrit 37.1 % Mean Corpuscular Volume 86.9 FL Mean Corpuscular Hemoglobin 29.3 PG Mean Corpuscular Hemoglobin 33.7 % Concent Red Cell Distribution Width 15.1 % Platelet Count 249 TH/MM3 Mean Platelet Volume 8.6 FL Neutrophils (%) (Auto) 73.4 % Lymphocytes (%) (Auto) 14.0 % Monocytes (%) (Auto) 8.6 % Eosinophils (%) (Auto) 3.4 % Basophils (%) (Auto) 0.6 % Neutrophils # (Auto) 7.2 TH/MM3 Lymphocytes # (Auto) 1.4 TH/MM3 Monocytes # (Auto) 0.9 TH/MM3 Eosinophils # (Auto) 0.3 TH/MM3 Basophils # (Auto) 0.1 TH/MM3 CBC Comment DIFF FINAL Differential Comment Sodium Level 136 MEQ/L Potassium Level 3.9 MEQ/L Chloride Level 100 MEQ/L Carbon Dioxide Level 30.1 MEQ/L Anion Gap 6 MEQ/L Blood Urea Nitrogen 13 MG/DL Creatinine 0.83 MG/DL Estimat Glomerular Filtration 102 ML/MIN Rate Random Glucose 102 MG/DL Calcium Level 9.6 MG/DL Magnesium Level 2.2 MG/DL Vitals/IOs Vital Signs Date Time Temp Pulse Resp B/P Pulse Ox O2 Delivery O2 Flow Rate FiO2 08/21/16 06:00 98.3 105 15 113/66 95 Intake and Output 08/20/16 08/20/16 08/21/16 08:00 16:00 00:00 Intake Total 360 ml 240 ml 1200 ml Output Total 1400 ml 725 ml Balance -1040 ml -485 ml 1200 ml Assessment & Plan Problem List: (1) Schizoaffective disorder, bipolar type ICD Code: F25.0 Assessment & Plan Estimated LOS: days Justification for Cont. Inpt. Patient is to continue the process of psychiatric hospitalization for stabilization also to coordinate a safe discharge. Request HC Surrog/Guard Advoc?: No Dariel Sanford MD Aug 21, 2016 15:32
[2016-08-21 18:13] VITALS: BP 103/68; PULSE 94; RESP 16; TEMP 97.9; O2SAT 96
[2016-08-21] MEDS: QUEtiapine FUMARATE 300 MG TAB PO SCH (20:21)
[2016-08-22 05:55] VITALS: BP 108/70; PULSE 99; RESP 18; TEMP 97.7; O2SAT 96
[2016-08-22] MEDS: LEVOTHYROXINE SODIUM 200 MCG TAB PO SCH (05:56)
[2016-08-22] MEDS: POLYETHYLENE GLYCOL 17 GM PKG PO SCH (07:56)
[2016-08-22] MEDS: PANTOPRAZOLE SOD 40 MG DELAYED RELEASE TAB PO SCH (07:56)
[2016-08-22] MEDS: RIVAROXABAN 10 MG TAB PO SCH (07:56)
[2016-08-22] MEDS: DOCUSATE SODIUM 50 MG/SENNA 8.6 MG TAB PO SCH ×2 (07:56→20:30)
[2016-08-22] MEDS: ZIPRASIDONE HCL 40 MG CAP PO SCH ×2 (07:56→17:24)
[2016-08-22] MEDS: ACETAMINOPHEN/HYDROcodone 325 MG/7.5 MG TAB PO PRN (07:57)
[2016-08-22] MEDS: LITHIUM CARBONATE 300 MG CAP PO SCH ×2 (07:57→20:30)
--- NOTE | 2016-08-22 09:36 | RADRPT ---
EXAM DATE/TIME: 08/22/2016 08:52 [facility] COMPARISON: KNEE RIGHT LTD (1 OR 2 VWS), July 23, 2016, 12:31. INDICATIONS : Evaluate distal femoral and patellar fractures. MEDICAL HISTORY : None. SURGICAL HISTORY : None. ENCOUNTER: Subsequent ACUITY: 1 month PAIN SCORE: 0/10 LOCATION: Right Knee. FINDINGS: AP and lateral views of the right knee were obtained and again demonstrate a comminuted fracture defo rmity of the patella with ill-defined fracture line lucencies. The fracture fragments are in near-rudy tomic alignment. An intramedullary gregg remains in place in the distal femur. The distal femoral fract ure is unchanged. There is overlying soft tissue swelling. CONCLUSION: Stable appearance of the fractures. Meño Castillo MD on August 22, 2016 at 9:32 Board Certified Radiologist. This report was verified electronically.
--- NOTE | 2016-08-22 09:38 | RADRPT ---
EXAM DATE/TIME: 08/22/2016 08:53 [facility] COMPARISON: FEMUR RIGHT (AP & LAT/2VWS), July 29, 2016, 10:19. INDICATIONS : Followup femoral fractures and acetabular fractures.. Status post open reduction internal fixation. MEDICAL HISTORY : Trauma fall. SURGICAL HISTORY : None. ENCOUNTER: Subsequent ACUITY: 1 month PAIN SCORE: 0/10 LOCATION: Bilateral pelvis. FINDINGS: 4 AP views of the pelvis were obtained and again demonstrate an intramedullary gregg in right femur wit h interlocking cannulated screw transfixing the intertrochanteric fracture. The fracture fragments ar e unchanged in appearance and alignment.. The fractures of the left inferior and superior pubic rami do not appear significantly changed. CONCLUSION: 1. Stable appearance of the left pubic rami fractures. 2. Stable postsurgical changes involving the right femur. Meño Castillo MD on August 22, 2016 at 9:34 Board Certified Radiologist. This report was verified electronically.
--- NOTE | 2016-08-22 09:41 | RADRPT ---
EXAM DATE/TIME: 08/22/2016 08:57 [facility] COMPARISON: CT ELBOW LEFT W/O CONTRAST, July 14, 2016, 10:59. FOREARM LEFT (1VW), July 12, 2016, 2:46. EL BOW LEFT (1 VW), July 12, 2016, 7:45. ELBOW LEFT LIMITED (AP & LAT), July 15, 2016, 16:43. INDICATIONS : Post-op left elbow. MEDICAL HISTORY : None. SURGICAL HISTORY : None. ENCOUNTER: Subsequent ACUITY: 1 month PAIN SCORE: 0/10 LOCATION: Left Elbow. FINDINGS: 5 views of the left elbow were obtained and again demonstrate the patient is status post open rigid i nternal fixation with radial head prosthesis in place. This is unchanged in appearance and alignment. There is an external fixation device in place with metal pins in the distal humerus and proximal rad ius. There are multiple small fracture fragments or calcifications along the distal lateral humerus. CONCLUSION: Stable appearance. Meño Castillo MD on August 22, 2016 at 9:37 Board Certified Radiologist. This report was verified electronically.
--- NOTE | 2016-08-22 12:00 | PD.ORT.PN ---
Subjective Subjective Remarks Sitting in transfer chair watching TV. No complaints alert and oriented to person place and time Objective Vitals Vital Signs Date Time Temp Pulse Resp B/P Pulse Ox O2 Delivery O2 Flow Rate FiO2 08/22/16 05:55 97.7 99 18 108/70 96 08/21/16 18:13 97.9 94 16 103/68 96 I/O 08/21/16 08/21/16 08/21/16 08/22/16 08/22/16 08/22/16 07:00 15:00 23:00 07:00 15:00 23:00 Intake Total 240 ml 480 ml 960 ml Output Total 1 ml 750 ml 2050 ml Balance 239 ml -270 ml -2050 ml 960 ml Intake Oral 240 ml 480 ml 960 ml Output Urine Total 750 ml 2050 ml Stool Total 1 ml # Voids 1 # Bowel Movements 3 Result Diagram: 08/21/16 0621 08/21/16 0621 Imaging Last 24 hours Impressions Pelvis X-Ray 08/22/16 0000 Signed Impressions: Service Date/Time: Monday, August 22, 2016 08:53 - CONCLUSION: 1. Stable appearance of the left pubic rami fractures. 2. Stable postsurgical changes involving the right femur. Meño Castillo MD Knee X-Ray 08/22/16 0000 Signed Impressions: Service Date/Time: Monday, August 22, 2016 08:52 - CONCLUSION: Stable appearance of the fractures. Meño Castillo MD Elbow X-Ray 08/22/16 0000 Signed Impressions: Service Date/Time: Monday, August 22, 2016 08:57 - CONCLUSION: Stable appearance. Meño Castillo MD Objective Remarks LUE: +elbow exfix. pin sites with some build up of escar. NVI distally beginning to develop contractures of fingers and wrist. incisions healing well. LLE: incision and lacerations healing without sign of infection. +CKS. NVI RLE: +CKS. minimal swelling. NVI. incisions and lacerations healing without sign of infection.; Pelvis with mild tenderness with motion of hips Assessment & Plan Assessment and Plan 1) I&D with ORIF L open Patella fx, R long intramedullary femoral nail for intertroch and fem shaft fxs, I&D L Hand with closure of traumatic wound, I&D L elbow with application of ex-fix( [place])07/12/16 2) status post radial head replacement and complex repair of left elbow fracture dislocation with hinged external fixator([place]) 07/15/16 pin care twice a day with 1/2 peroxide and 1/2 saline Nonweightbearing left upper extremity Occupational therapy for ROM of fingers and PROM of elbow 3) Right patella fracture to be treated nonoperatively with knee immobilizer 4)Pelvic fractures --plan nonoperative treatment Bilateral patella fractures continue knee immobilizers, but now begin passive range of motion from 0-45 NWB BLE and L UE dvt prophylaxis med management psych management Follow-up appointment with Dr. Hoyt and Dr. Perry in 2 weeks -placed consult for case mgmt to assist in discharge planning . MEÑO MOSS PA-C Aug 22, 2016 12:00
--- NOTE | 2016-08-22 12:41 | HHI.PYPN ---
Subjective Remarks Patient was seen today for evaluation with nurse in charge Dominic, patient seems to be in a good mood, he is found eating his breakfast, he says that he feels okay, he denies depressive symptoms, he denies anxiety, he reports good sleep, good appetite, good level of energy, he denies pain or distress, patient states that what keeping going is his romel that everything is going to be better and his be able to retake his life. He denies suicidal or homicidal ideation, he denies visual and auditory hallucinations. Patient is fully oriented 3, he is medication compliant. He was seen by [facility], note was reviewed. Review of Systems Other No somatic complaints Objective Alert: Yes [place]: Person, Place (at least) Mood: Calm Affect: Euthymic, Blunted Memory Intact: Comment (not formally assessed today) Hallucinations: Other (Denies AVH) Delusions: No Delusion Type: Other (No delusions) Suicidal: Ideation (Denies SI) Homicidal: Ideation (No HI) Insight/Judgement good Vitals/IOs Vital Signs Date Time Temp Pulse Resp B/P Pulse Ox O2 Delivery O2 Flow Rate FiO2 08/22/16 05:55 97.7 99 18 108/70 96 Intake and Output 08/21/16 08/21/16 08/22/16 08:00 16:00 00:00 Intake Total 240 ml 480 ml Output Total 1 ml 750 ml 1700 ml Balance 239 ml -270 ml -1700 ml Assessment & Plan Problem List: (1) Schizoaffective disorder, bipolar type Assessment & Plan: Patient is to continue psychiatric hospitalization for stabilization, no changes in psychotropics. Discharge plan on place. ICD Code: F25.0 Assessment & Plan Estimated LOS: days Justification for Cont. Inpt. Patient poses a very high risk to decompensate outside of a lack unit Request HC Surrog/Guard Advoc?: Dariel Newsome MD Aug 22, 2016 12:41
--- NOTE | 2016-08-22 14:23 | HHI.PR ---
Subjective Remarks Follow up visit trauma multiple fractures, depression, suicidal ideation. Patient seen today. Sitting in chair, TLSO brace in place, slightly lose. Pt. went for CXR. Reports small BMs x2 last night. Denies pain and discomfort. Denies SOB/ dyspnea. Denies chest pain, palpitations, headaches, dizziness. Denies fevers, chills, n/v/d. Objective Vitals Vital Signs Date Time Temp Pulse Resp B/P Pulse Ox O2 Delivery O2 Flow Rate FiO2 08/22/16 05:55 97.7 99 18 108/70 96 08/21/16 18:13 97.9 94 16 103/68 96 I/O 08/21/16 08/21/16 08/21/16 08/22/16 08/22/16 08/22/16 07:00 15:00 23:00 07:00 15:00 23:00 Intake Total 240 ml 480 ml 960 ml Output Total 1 ml 750 ml 2050 ml Balance 239 ml -270 ml -2050 ml 960 ml Intake Oral 240 ml 480 ml 960 ml Output Urine Total 750 ml 2050 ml Stool Total 1 ml # Voids 1 # Bowel Movements 3 Result Diagram: 08/21/16 0621 08/21/16 0621 Imaging Last Impressions Pelvis X-Ray 08/22/16 0000 Signed Impressions: Service Date/Time: Monday, August 22, 2016 08:53 - CONCLUSION: 1. Stable appearance of the left pubic rami fractures. 2. Stable postsurgical changes involving the right femur. Meño Castillo MD Knee X-Ray 08/22/16 0000 Signed Impressions: Service Date/Time: Monday, August 22, 2016 08:52 - CONCLUSION: Stable appearance of the fractures. Meño Castillo MD Elbow X-Ray 08/22/16 0000 Signed Impressions: Service Date/Time: Monday, August 22, 2016 08:57 - CONCLUSION: Stable appearance. Meño Castillo MD Wrist X-Ray 08/04/16 0000 Signed Impressions: Service Date/Time: Thursday, August 04, 2016 07:59 - CONCLUSION: Non- displaced fracture involving the distal radius and radiocarpal joint. Julius Barillas MD FACR Femur X-Ray 07/29/16 0000 Signed Impressions: Service Date/Time: Friday, July 29, 2016 10:19 - CONCLUSION: Stable examination of the right femur in this patient post recent right femur ORIF for treatment of a intertrochanteric fracture in distal femoral diaphysis fracture. There is also a comminuted patella fracture present. Moses Buenrostro MD Abdomen X-Ray 07/29/16 0000 Signed Impressions: Service Date/Time: Friday, July 29, 2016 18:13 - CONCLUSION: Moderate stool burden suggesting constipation. No dilated loops of bowel. Bruno Brito Jr., MD Objective Remarks GENERAL: This is a well-nourished, well-developed patient, in no apparent distress. SKIN: No rashes, ecchymoses or lesions. Cool and dry. HEAD: Atraumatic. Normocephalic. No temporal or scalp tenderness. EYES: Pupils equal round and reactive. Extraocular motions intact. No scleral icterus. No injection or drainage. ENT: Nose without bleeding. Throat without erythema. Uvula midline. Airway patent. NECK: Trachea midline. No JVD or lymphadenopathy. Supple, nontender, no meningeal signs. CARDIOVASCULAR: Regular rate and rhythm without murmurs, gallops, or rubs. RESPIRATORY: Diminished bases. No wheezes, rales, or rhonchi. GASTROINTESTINAL: Abdomen soft, non-tender, nondistended. No hepato-splenomegaly , or palpable masses. No guarding. MUSCULOSKELETAL: Extremities without clubbing, cyanosis, bilateral lower extremity trace edema. Able to wiggle bilateral toes and move bilateral foot weakly. Left upper extremity with ex-fix. Right hip incision site CDI, small mid opening, no drainage, no erythema. NEUROLOGICAL: Awake and alert. Flat affect. - Improved smiling today. Oriented to self, and place. Sensory grossly within normal limits. Normal speech. Procedures s/p right femur IMN s/p exfix left elbow s/p ORIF left patella right patella fx A/P Problem List: (1) Schizoaffective disorder, bipolar type ICD Code: F25.0 Status: Acute (2) Femur fracture, right ICD Code: S72.91XA Status: Acute (3) Elbow fracture ICD Code: S42.409A Status: Acute (4) Patella fracture ICD Code: S82.009A Status: Acute (5) T12 vertebral fracture ICD Code: S22.089A Status: Acute (6) Hypothyroidism ICD Code: E03.9 Status: Chronic Assessment and Plan This a 50-year-old gentleman with a past medical history which includes hypothyroidism, bipolar and schizophrenia. Patient is status post trauma alert on 07/12/2016 secondary to suicide attempt patient jumped off a bridge onto railroad tracks. Patient sustained multiple fractures has been taken to the OR initially was in intensive care unit and intubated for airway protection as well as pain management. Patient was extubated 07/13/2016. Bipolar, schizophrenia - managed by psychiatry team Multiple surgical interventions including: Patient received 4 units PRBCs, 1 FFP and platelets while in the OR. s/p right femur IMN s/p exfix left elbow s/p ORIF left patella right patella fx nonop pelvic fxs Latest surgical intervention- Status post Left elbow ex fix Per Ortho, nonoperative management of right patella and pelvic fractures. Patient will maintain nonweightbearing on left upper extremity/bilateral lower extremity with daily dressing changes to the right femur, left knee, pinned care twice a day of left elbow. Patient will also continue to follow-up with Dr. Gentile if discharged home. - Xarelto 10 mg daily - Continue Physical therapy/occupational therapy - Physical therapy recommends specialty bed auto rolling. Pressure relief. - Air mattress bed with altered rolling - Pain management [place]'s 7.5/325 mg - May transfer to rehabilitation when ready. Consulted rehabilitation medicine for further management, awaiting for orthopedic new orders for weightbearing status. - Continue wound care as per Ortho recommendation. - TLSO brace ordered per recommendation. Continue to encourage OOB sitting up. Hypothyroidism - continue levothyroxine TSH level 26.4 T4 0.91 Increase levothyroxine 200 mg daily- recommend patient have recheck in approximately 8 weeks Constipation- Continue pericolace twice a day and prn. MiraLAX daily. - Lactulose PRN UTI - continue Cipro until completed 08/16/59. Denies dysuria, hematuria. Afebrile. Sinus tachycardia secondary to anxiety. Doubt PE patient not hypoxic and denies chest pain and shortness of breath. Patient also on chemical prophylaxis for DVT. Improving DVT Prop Xarelto GI Prop Protonix Discuss with patient and nursing Written by Sera Jameson, acting as scribe for Dr. Madrid on 08/22/16 at 12: 38. The documentation accurately reflects the work performed [id number] by me on at 18:16. Problem Qualifiers (1) Femur fracture, right: (2) Elbow fracture: (3) T12 vertebral fracture: Sera Brandon Aug 22, 2016 14:23 Larry Madrid MD Aug 22, 2016 18:16
[2016-08-22 16:46] VITALS: BP 124/75; PULSE 101; RESP 18; TEMP 97.8; O2SAT 96
[2016-08-22] MEDS: QUEtiapine FUMARATE 300 MG TAB PO SCH (20:30)
[2016-08-23] MEDS: LEVOTHYROXINE SODIUM 200 MCG TAB PO SCH (05:38)
[2016-08-23 05:49] VITALS: BP 109/67; PULSE 104; RESP 15; TEMP 98.2; O2SAT 94
[2016-08-23] MEDS ORDERED: LACTULOSE SYRUP 20 GM/30 ML CUP PO PRN (08:30)
[2016-08-23] MEDS: ZIPRASIDONE HCL 40 MG CAP PO SCH ×2 (08:47→18:00)
[2016-08-23] MEDS: PANTOPRAZOLE SOD 40 MG DELAYED RELEASE TAB PO SCH (08:47)
[2016-08-23] MEDS: LITHIUM CARBONATE 300 MG CAP PO SCH ×2 (08:47→21:23)
[2016-08-23] MEDS: RIVAROXABAN 10 MG TAB PO SCH (08:47)
[2016-08-23] MEDS: DOCUSATE SODIUM 50 MG/SENNA 8.6 MG TAB PO SCH ×2 (08:48→21:23)
[2016-08-23] MEDS: POLYETHYLENE GLYCOL 17 GM PKG PO SCH (08:48)
--- NOTE | 2016-08-23 11:36 | HHI.PYPN ---
Subjective Remarks Patient seen in his room in bed with nurse Maxine, patient calm cooperative pleasant with somewhat sad face. He does denies suicidality is cooperative with nursing staff within needs for assistance with ADLs and hygiene. He has visits from his that he states are good Review of Systems Except as stated in HPI: all other systems reviewed are Neg Objective Alert: Yes [place]: Person, Place (at least) Mood: Calm Affect: Euthymic, Blunted Memory Intact: Comment (not formally assessed today) Hallucinations: Other (Denies AVH) Delusions: No Delusion Type: Other (No delusions) Suicidal: Ideation (Denies SI) Homicidal: Ideation (No HI) Insight/Judgement Poor Vitals/IOs Vital Signs Date Time Temp Pulse Resp B/P Pulse Ox O2 Delivery O2 Flow Rate FiO2 08/23/16 05:49 98.2 104 15 109/67 94 Intake and Output 08/22/16 08/22/16 08/23/16 08:00 16:00 00:00 Intake Total 960 ml 1300 ml Output Total 350 ml 900 ml Balance -350 ml 960 ml 400 ml Assessment & Plan Problem List: (1) Schizoaffective disorder, bipolar type ICD Code: F25.0 Assessment & Plan Estimated LOS: days patient calm cooperative this time denies suicidality for now continue treatment Justification for Cont. Inpt. At this time patient will decompensate if placed in a lower level of care Discharge Planning To be determined Request HC Surrog/Guard Advoc?: No Moses Baltazar MD Aug 23, 2016 11:36
--- NOTE | 2016-08-23 16:43 | HHI.PR ---
Subjective Remarks Follow-up tachycardia. Denies palpitations and shortness of breath. Discussed with RN Objective Vitals Vital Signs Date Time Temp Pulse Resp B/P Pulse Ox O2 Delivery O2 Flow Rate FiO2 08/23/16 05:49 98.2 104 15 109/67 94 08/22/16 16:46 97.8 101 18 124/75 96 I/O 08/22/16 08/22/16 08/22/16 08/23/16 08/23/16 08/23/16 07:00 15:00 23:00 07:00 15:00 23:00 Intake Total 960 ml 1300 ml 240 ml 720 ml Output Total 2050 ml 900 ml 601 ml Balance -2050 ml 960 ml 400 ml -361 ml 720 ml Intake Oral 960 ml 1300 ml 240 ml 720 ml Output Urine Total 2050 ml 900 ml 600 ml Stool Total 1 ml # Bowel Movements 3 Result Diagram: 08/21/1662008/21/16620 Objective Remarks GENERAL: This is a well-nourished, well-developed patient, in no apparent distress. SKIN: No rashes, ecchymoses or lesions. Cool and dry. HEAD: Atraumatic. Normocephalic. No temporal or scalp tenderness. EYES: Pupils equal round and reactive. Extraocular motions intact. No scleral icterus. No injection or drainage. ENT: Nose without bleeding. Throat without erythema. Uvula midline. Airway patent. NECK: Trachea midline. No JVD or lymphadenopathy. Supple, nontender, no meningeal signs. CARDIOVASCULAR: Mildly tachycardic RESPIRATORY: Diminished bases. No wheezes, rales, or rhonchi. GASTROINTESTINAL: Abdomen soft, non-tender, nondistended. No guarding. MUSCULOSKELETAL: Extremities without clubbing, cyanosis, bilateral lower extremity trace edema. Able to wiggle bilateral toes and move bilateral foot weakly. Left upper extremity with ex-fix. NEUROLOGICAL: Awake and alert. Flat affect. - Improved smiled today. Oriented to self, and place. Sensory grossly within normal limits. Normal speech. Procedures s/p right femur IMN s/p exfix left elbow s/p ORIF left patella right patella fx A/P Problem List: (1) Schizoaffective disorder, bipolar type ICD Code: F25.0 Status: Acute (2) Femur fracture, right ICD Code: S72.91XA Status: Acute (3) Elbow fracture ICD Code: S42.409A Status: Acute (4) Patella fracture ICD Code: S82.009A Status: Acute (5) T12 vertebral fracture ICD Code: S22.089A Status: Acute (6) Hypothyroidism ICD Code: E03.9 Status: Chronic Assessment and Plan This a 50-year-old gentleman with a past medical history which includes hypothyroidism, bipolar and schizophrenia. Patient is status post trauma alert on 07/12/2016 secondary to suicide attempt patient jumped off a bridge onto railroad tracks. Patient sustained multiple fractures has been taken to the OR initially was in intensive care unit and intubated for airway protection as well as pain management. Patient was extubated 07/13/2016. Bipolar, schizophrenia - managed by psychiatry team Multiple surgical interventions including: Patient received 4 units PRBCs, 1 FFP and platelets while in the OR. s/p right femur IMN s/p exfix left elbow s/p ORIF left patella right patella fx nonop pelvic fxs Latest surgical intervention- Status post Left elbow ex fix Per Ortho, nonoperative management of right patella and pelvic fractures. Patient will maintain nonweightbearing on left upper extremity/bilateral lower extremity with daily dressing changes to the right femur, left knee, pinned care twice a day of left elbow. Patient will also continue to follow-up with Dr. Gentile if discharged home. - Xarelto 10 mg daily - Continue Physical therapy/occupational therapy - Physical therapy recommends specialty bed auto rolling. Pressure relief. - Air mattress bed with altered rolling - Pain management [place]'s 7.5/325 mg - May transfer to rehabilitation when ready. Consulted rehabilitation medicine for further management, awaiting for orthopedic new orders for weightbearing status. - Continue wound care as per Ortho recommendation. - TLSO brace ordered per recommendation. Continue to encourage OOB sitting up. Hypothyroidism - continue levothyroxine TSH level 26.4 T4 0.91 Increase levothyroxine 200 mg daily- recommend patient have recheck in approximately 8 weeks Constipation- Continue pericolace twice a day and prn. MiraLAX daily. - Lactulose PRN UTI - continue Cipro until completed 08/16/59. Denies dysuria, hematuria. Afebrile. Sinus tachycardia secondary to anxiety. Doubt PE patient not hypoxic and denies chest pain and shortness of breath. Patient also on chemical prophylaxis for DVT. Improving and continue to monitor DVT Prop Xarelto GI Prop Protonix Discuss with patient and nursing Written by Sera Jameson, acting as scribe for Dr. Madrid on 08/22/16 at 12: 38. The documentation accurately reflects the work performed [id number] by me on at 18:16. Discharge Planning needs rehab Problem Qualifiers (1) Femur fracture, right: (2) Elbow fracture: (3) T12 vertebral fracture: Larry Madrid MD Aug 23, 2016 16:43
[2016-08-23 18:42] VITALS: BP 117/68; PULSE 100; RESP 16; TEMP 98.6; O2SAT 96
[2016-08-23] MEDS: QUEtiapine FUMARATE 300 MG TAB PO SCH (21:23)
[2016-08-24 05:50] VITALS: BP 115/62; PULSE 102; RESP 18; TEMP 98.3; O2SAT 95
[2016-08-24] MEDS: LEVOTHYROXINE SODIUM 200 MCG TAB PO SCH (06:04)
--- NOTE | 2016-08-24 08:27 | HHI.PYPN ---
Subjective Remarks Patient seen in his room with floor staff, chart review, patient overall calm pleasant coping well with the casts and external fixators applied his various extremities. Denies suicidality homicidality voices or visions Review of Systems Except as stated in HPI: all other systems reviewed are Neg Objective Alert: Yes [place]: Person, Place (at least) Mood: Calm Affect: Euthymic, Blunted Memory Intact: Comment (not formally assessed today) Hallucinations: Other (Denies AVH) Delusions: No Delusion Type: Other (No delusions) Suicidal: Ideation (Denies SI) Homicidal: Ideation (No HI) Insight/Judgement Poor to fair Vitals/IOs Vital Signs Date Time Temp Pulse Resp B/P Pulse Ox O2 Delivery O2 Flow Rate FiO2 08/24/16 05:50 98.3 102 18 115/62 95 Intake and Output 08/23/16 08/23/16 08/24/16 08:00 16:00 00:00 Intake Total 240 ml 720 ml 840 ml Output Total 601 ml Balance -361 ml 720 ml 840 ml Assessment & Plan Problem List: (1) Schizoaffective disorder, bipolar type ICD Code: F25.0 Assessment & Plan Estimated LOS: days patient calm cooperative compliant medications patient still shows of depressed mood but appears to be improving Justification for Cont. Inpt. At this time patient will decompensate placed at a lower level of care Discharge Planning To be determined Request HC Surrog/Guard Advoc?: No Moses Baltazar MD Aug 24, 2016 08:27
[2016-08-24] MEDS: LITHIUM CARBONATE 300 MG CAP PO SCH ×2 (08:51→20:22)
[2016-08-24] MEDS: POLYETHYLENE GLYCOL 17 GM PKG PO SCH (08:51)
[2016-08-24] MEDS: ZIPRASIDONE HCL 40 MG CAP PO SCH ×2 (08:51→17:39)
[2016-08-24] MEDS: DOCUSATE SODIUM 50 MG/SENNA 8.6 MG TAB PO SCH ×2 (08:51→20:22)
[2016-08-24] MEDS: PANTOPRAZOLE SOD 40 MG DELAYED RELEASE TAB PO SCH (08:51)
[2016-08-24] MEDS: RIVAROXABAN 10 MG TAB PO SCH (08:51)
[2016-08-24 08:56] VITALS: BP 115/62; PULSE 102; RESP 18; TEMP 98.3; O2SAT 95
--- NOTE | 2016-08-24 09:51 | HHI.PR ---
Subjective Remarks Follow up visit trauma multiple fractures, depression, suicidal ideation. Patient seen today. States he is doing well. Reports small BMs. Denies abdominal pain, cramping, n/v, fevers, chills. Objective Vitals Vital Signs Date Time Temp Pulse Resp B/P Pulse Ox O2 Delivery O2 Flow Rate FiO2 08/24/16 08:56 98.3 102 18 115/62 95 08/24/16 05:50 98.3 102 18 115/62 95 08/23/16 18:42 98.6 100 16 117/68 96 I/O 08/23/16 08/23/16 08/23/16 08/24/16 08/24/16 08/24/16 07:00 15:00 23:00 07:00 15:00 23:00 Intake Total 240 ml 720 ml 840 ml 100 ml Output Total 601 ml Balance -361 ml 720 ml 840 ml 100 ml Intake Oral 240 ml 720 ml 840 ml 100 ml Output Urine Total 600 ml Stool Total 1 ml # Voids 3 5 # Bowel Movements 1 1 Result Diagram: 08/21/16 0621 08/21/16 0621 Imaging Last Impressions Pelvis X-Ray 08/22/16 0000 Signed Impressions: Service Date/Time: Monday, August 22, 2016 08:53 - CONCLUSION: 1. Stable appearance of the left pubic rami fractures. 2. Stable postsurgical changes involving the right femur. Meño Castillo MD Knee X-Ray 08/22/16 0000 Signed Impressions: Service Date/Time: Monday, August 22, 2016 08:52 - CONCLUSION: Stable appearance of the fractures. Meño Castillo MD Elbow X-Ray 08/22/16 0000 Signed Impressions: Service Date/Time: Monday, August 22, 2016 08:57 - CONCLUSION: Stable appearance. Meño Castillo MD Wrist X-Ray 08/04/16 0000 Signed Impressions: Service Date/Time: Thursday, August 04, 2016 07:59 - CONCLUSION: Non- displaced fracture involving the distal radius and radiocarpal joint. Julius Barillas MD FACR Femur X-Ray 07/29/16 0000 Signed Impressions: Service Date/Time: Friday, July 29, 2016 10:19 - CONCLUSION: Stable examination of the right femur in this patient post recent right femur ORIF for treatment of a intertrochanteric fracture in distal femoral diaphysis fracture. There is also a comminuted patella fracture present. Moses Buenrostro MD Abdomen X-Ray 07/29/16 0000 Signed Impressions: Service Date/Time: Friday, July 29, 2016 18:13 - CONCLUSION: Moderate stool burden suggesting constipation. No dilated loops of bowel. Bruno Brito Jr., MD Objective Remarks GENERAL: This is a well-nourished, well-developed patient, in no apparent distress. SKIN: No rashes, ecchymoses or lesions. Cool and dry. HEAD: Atraumatic. Normocephalic. No temporal or scalp tenderness. EYES: Pupils equal round and reactive. Extraocular motions intact. No scleral icterus. No injection or drainage. ENT: Nose without bleeding. Throat without erythema. Uvula midline. Airway patent. NECK: Trachea midline. No JVD or lymphadenopathy. Supple, nontender, no meningeal signs. CARDIOVASCULAR: Regular rate and rhythm without murmurs, gallops, or rubs. RESPIRATORY: Diminished bases. No wheezes, rales, or rhonchi. GASTROINTESTINAL: Abdomen soft, non-tender, nondistended. No hepato-splenomegaly , or palpable masses. No guarding. MUSCULOSKELETAL: Extremities without clubbing, cyanosis, bilateral lower extremity trace edema. Able to wiggle bilateral toes and move bilateral foot weakly. Left upper extremity with ex-fix. Right hip incision site CDI, small mid opening, no drainage, no erythema. NEUROLOGICAL: Awake and alert. Flat affect. - Improved smiling today. Oriented to self, and place. Sensory grossly within normal limits. Normal speech. Procedures s/p right femur IMN s/p exfix left elbow s/p ORIF left patella right patella fx A/P Problem List: (1) Schizoaffective disorder, bipolar type ICD Code: F25.0 Status: Acute (2) Femur fracture, right ICD Code: S72.91XA Status: Acute (3) Elbow fracture ICD Code: S42.409A Status: Acute (4) Patella fracture ICD Code: S82.009A Status: Acute (5) T12 vertebral fracture ICD Code: S22.089A Status: Acute (6) Hypothyroidism ICD Code: E03.9 Status: Chronic Assessment and Plan This a 50-year-old gentleman with a past medical history which includes hypothyroidism, bipolar and schizophrenia. Patient is status post trauma alert on 07/12/2016 secondary to suicide attempt patient jumped [place] a bridge [place] railroad tracks. Patient sustained multiple fractures has been taken to the OR initially was in intensive care unit and intubated for airway protection as well as pain management. Patient was extubated 07/13/2016. Bipolar, schizophrenia - managed by psychiatry team Multiple surgical interventions including: Patient received 4 units PRBCs, 1 FFP and platelets while in the OR. s/p right femur IMN s/p exfix left elbow s/p ORIF left patella right patella fx nonop pelvic fxs Latest surgical intervention- Status post Left elbow ex fix Per Ortho, nonoperative management of right patella and pelvic fractures. Patient will maintain nonweightbearing on left upper extremity/bilateral lower extremity with daily dressing changes to the right femur, left knee, pinned care twice a day of left elbow. Patient will also continue to follow-up with Dr. Gentile if discharged home. - Xarelto 10 mg daily - Continue Physical therapy/occupational therapy - Physical therapy recommends specialty bed auto rolling. Pressure relief. - Air mattress bed with altered rolling - Pain management [place]'s 7.5/325 mg - May transfer to rehabilitation when ready. Consulted rehabilitation medicine for further management, awaiting for orthopedic new orders for weightbearing status. - Continue wound care as per Ortho recommendation. - TLSO brace ordered per recommendation. Continue to encourage OOB sitting up. - As per ortho, Bilateral patella fractures continue knee immobilizers, but now begin passive range of motion from 0-45, cont NWB BLE and LUE Hypothyroidism - continue levothyroxine TSH level 26.4 T4 0.91 Increase levothyroxine 200 mg daily- recommend patient have recheck in approximately 8 weeks Constipation- Continue pericolace twice a day and prn. MiraLAX daily. - Lactulose PRN UTI - Cipro completed 08/16/59. Denies dysuria, hematuria. Afebrile. DVT Prop Xarelto GI Prop Protonix Discuss with patient and nursing Written by Sera Jameson, acting as scribe for Dr. Madrid on 08/24/16 at 09: 26. The documentation accurately reflects the work performed [id number] by me on at 14:23. Problem Qualifiers (1) Femur fracture, right: (2) Elbow fracture: (3) T12 vertebral fracture: Sera Brandon Aug 24, 2016 09:51 Larry Madrid MD Aug 24, 2016 14:23
[2016-08-24 16:37] VITALS: BP 115/76; PULSE 92; RESP 18; TEMP 97.9; O2SAT 96
[2016-08-24] MEDS: QUEtiapine FUMARATE 300 MG TAB PO SCH (20:22)
[2016-08-25] MEDS: LEVOTHYROXINE SODIUM 200 MCG TAB PO SCH (05:23)
[2016-08-25 05:47] VITALS: BP 114/69; PULSE 96; RESP 16; TEMP 97.5; O2SAT 96
[2016-08-25] MEDS: RIVAROXABAN 10 MG TAB PO SCH (08:57)
[2016-08-25] MEDS: PANTOPRAZOLE SOD 40 MG DELAYED RELEASE TAB PO SCH (08:57)
[2016-08-25] MEDS: LITHIUM CARBONATE 300 MG CAP PO SCH ×2 (08:58→20:58)
[2016-08-25] MEDS: POLYETHYLENE GLYCOL 17 GM PKG PO SCH (09:01)
[2016-08-25] MEDS: ZIPRASIDONE HCL 40 MG CAP PO SCH ×2 (09:01→17:18)
[2016-08-25] MEDS: DOCUSATE SODIUM 50 MG/SENNA 8.6 MG TAB PO SCH ×2 (09:02→20:58)
--- NOTE | 2016-08-25 14:22 | HHI.PYPN ---
Subjective Remarks Appears to be doing well and has no complaints. This MD spoke with pt's , who is satisfied with his progress thus far. Review of Systems Except as stated in HPI: all other systems reviewed are Neg Objective Alert: Yes [place]: Person, Place (at least) Mood: Calm Affect: Euthymic, Blunted Memory Intact: Immediate, Recent, Remote, Comment (not formally assessed today) Hallucinations: Other (Denies AVH) Delusions: No Delusion Type: Other (No delusions) Suicidal: Ideation (Denies SI) Homicidal: Ideation (No HI) Insight/Judgement improved. Vitals/IOs Vital Signs Date Time Temp Pulse Resp B/P Pulse Ox O2 Delivery O2 Flow Rate FiO2 08/25/16 05:47 97.5 96 16 114/69 96 Intake and Output 08/24/16 08/24/16 08/25/16 08:00 16:00 00:00 Intake Total 100 ml 840 ml Output Total 1751 ml Balance 100 ml -911 ml Assessment & Plan Problem List: (1) Schizoaffective disorder, bipolar type ICD Code: F25.0 Assessment & Plan Estimated LOS: 3 days. Will need cont psych tx and physical care. Unable to care for self. Justification for Cont. Inpt. Unable to care for self. Request HC Surrog/Guard Advoc?: No George Garcias MD Aug 25, 2016 14:22
--- NOTE | 2016-08-25 15:06 | HHI.PR ---
Subjective Remarks Follow up tachycardia. Denies dizziness, palpitations and shortness of breath. Improved tachycardia after having bowel movement. Discussed with RN Objective Vitals Vital Signs Date Time Temp Pulse Resp B/P Pulse Ox O2 Delivery O2 Flow Rate FiO2 08/25/16 05:47 97.5 96 16 114/69 96 08/24/16 16:37 97.9 92 18 115/76 96 I/O 08/24/16 08/24/16 08/24/16 08/25/16 08/25/16 08/25/16 07:00 15:00 23:00 07:00 15:00 23:00 Intake Total 100 ml 960 ml Output Total 1751 ml Balance 100 ml -791 ml Intake Oral 100 ml 960 ml Output Urine Total 1750 ml Stool Total 1 ml # Voids 5 1 1 # Bowel Movements 1 Result Diagram: 08/21/1662008/21/16620 Objective Remarks GENERAL: This is a well-nourished, well-developed patient, in no apparent distress. SKIN: No rashes, ecchymoses or lesions. Cool and dry. HEAD: Atraumatic. Normocephalic. No temporal or scalp tenderness. EYES: Pupils equal round and reactive. Extraocular motions intact. No scleral icterus. No injection or drainage. ENT: Nose without bleeding. Throat without erythema. Uvula midline. Airway patent. NECK: Trachea midline. No JVD or lymphadenopathy. Supple, nontender, no meningeal signs. CARDIOVASCULAR: Regular rate and rhythm RESPIRATORY: Diminished bases. No wheezes, rales, or rhonchi. GASTROINTESTINAL: Abdomen soft, non-tender, nondistended. No guarding. MUSCULOSKELETAL: Extremities without clubbing, cyanosis, bilateral lower extremity trace edema. Able to wiggle bilateral toes and move bilateral foot weakly. Left upper extremity with ex-fix. NEUROLOGICAL: Awake and alert. Flat affect. - Improved smiled today. Oriented to self, and place. Sensory grossly within normal limits. Normal speech. Procedures s/p right femur IMN s/p exfix left elbow s/p ORIF left patella right patella fx A/P Problem List: (1) Schizoaffective disorder, bipolar type ICD Code: F25.0 Status: Acute (2) Femur fracture, right ICD Code: S72.91XA Status: Acute (3) Elbow fracture ICD Code: S42.409A Status: Acute (4) Patella fracture ICD Code: S82.009A Status: Acute (5) T12 vertebral fracture ICD Code: S22.089A Status: Acute (6) Hypothyroidism ICD Code: E03.9 Status: Chronic Assessment and Plan This a 50-year-old gentleman with a past medical history which includes hypothyroidism, bipolar and schizophrenia. Patient is status post trauma alert on 07/12/2016 secondary to suicide attempt patient jumped [place] a bridge [place] railroad tracks. Patient sustained multiple fractures has been taken to the OR initially was in intensive care unit and intubated for airway protection as well as pain management. Patient was extubated 07/13/2016. Bipolar, schizophrenia - managed by psychiatry team Multiple surgical interventions including: Patient received 4 units PRBCs, 1 FFP and platelets while in the OR. s/p right femur IMN s/p exfix left elbow s/p ORIF left patella right patella fx nonop pelvic fxs Latest surgical intervention- Status post Left elbow ex fix Per Ortho, nonoperative management of right patella and pelvic fractures. Patient will maintain nonweightbearing on left upper extremity/bilateral lower extremity with daily dressing changes to the right femur, left knee, pinned care twice a day of left elbow. Patient will also continue to follow-up with Dr. Gentile if discharged home. - Xarelto 10 mg daily - Continue Physical therapy/occupational therapy - Physical therapy recommends specialty bed auto rolling. Pressure relief. - Air mattress bed with altered rolling - Pain management [place]'s 7.5/325 mg - May transfer to rehabilitation when ready. Consulted rehabilitation medicine for further management, awaiting for orthopedic new orders for weightbearing status. - Continue wound care as per Ortho recommendation. - TLSO brace ordered per recommendation. Continue to encourage OOB sitting up. - As per ortho, Bilateral patella fractures continue knee immobilizers, but now begin passive range of motion from 0-45, cont NWB BLE and LUE Hypothyroidism - continue levothyroxine TSH level 26.4 T4 0.91 Increase levothyroxine 200 mg daily- recommend patient have recheck in approximately 8 weeks Constipation- Continue pericolace twice a day and prn. MiraLAX daily. Improving - Lactulose PRN UTI - Cipro completed 08/16/59. Denies dysuria, hematuria. Afebrile. Sinus tachycardia. Improved after having bowel movement DVT Prop Xarelto GI Prop Protonix Discuss with patient and nursing Discharge Planning needs rehab Problem Qualifiers (1) Femur fracture, right: (2) Elbow fracture: (3) T12 vertebral fracture: Larry Madrid MD Aug 25, 2016 15:06
[2016-08-25 19:10] VITALS: BP 122/83; PULSE 96; RESP 16; TEMP 97.5; O2SAT 96
[2016-08-25] MEDS: QUEtiapine FUMARATE 300 MG TAB PO SCH (20:58)
[2016-08-26] MEDS: LEVOTHYROXINE SODIUM 200 MCG TAB PO SCH (05:36)
[2016-08-26 05:52] VITALS: BP 105/67; PULSE 95; RESP 16; TEMP 97.6; O2SAT 95
[2016-08-26] MEDS: RIVAROXABAN 10 MG TAB PO SCH (08:28)
[2016-08-26] MEDS: ZIPRASIDONE HCL 40 MG CAP PO SCH ×2 (08:28→17:44)
[2016-08-26] MEDS: PANTOPRAZOLE SOD 40 MG DELAYED RELEASE TAB PO SCH (08:28)
[2016-08-26] MEDS: LITHIUM CARBONATE 300 MG CAP PO SCH ×2 (08:29→21:00)
[2016-08-26] MEDS: DOCUSATE SODIUM 50 MG/SENNA 8.6 MG TAB PO SCH ×2 (08:29→21:00)
[2016-08-26] MEDS: POLYETHYLENE GLYCOL 17 GM PKG PO SCH (08:31)
--- NOTE | 2016-08-26 12:24 | HHI.PYPN ---
Subjective Remarks Patient was seen today for psychiatric reevaluation along with nurse in charge Dominic, today patient seems to be objectively depressed, with flat affect, distant and superficial, he states that he is tired and a little bit exhausted after physical therapy, but he described his mood as fine, he reports motivation to continue his improvement, denies suicidal or homicidal ideation, denies visual and auditory hallucinations. Reports good sleep, good appetite, fair level of energy. I have reviewed carefully and appreciated the notes of my colleagues over the week and Dr. Baltazar and Dr. Garcias. Review of Systems Other No somatic complaint Objective Alert: Yes [place]: Person, Place (at least) Mood: Calm Affect: Euthymic, Blunted Memory Intact: Immediate, Recent, Remote, Comment (not formally assessed today) Hallucinations: Other (Denies AVH) Delusions: No Delusion Type: Other (No delusions) Suicidal: Ideation (Denies SI) Homicidal: Ideation (No HI) Insight/Judgement fair Vitals/IOs Vital Signs Date Time Temp Pulse Resp B/P Pulse Ox O2 Delivery O2 Flow Rate FiO2 08/26/16 05:52 97.6 95 16 105/67 95 Intake and Output 08/25/16 08/25/16 08/26/16 08:00 16:00 00:00 Intake Total 120 ml 840 ml 880 ml Output Total 1150 ml Balance 120 ml 840 ml -270 ml Assessment & Plan Problem List: (1) Schizoaffective disorder, bipolar type ICD Code: F25.0 Assessment & Plan Estimated LOS: days Justification for Cont. Inpt. Patient has an elevated risk to decompensate out of the psychiatric unit. Request HC Surrog/Guard Advoc?: Dariel Newsome MD Aug 26, 2016 12:24
--- NOTE | 2016-08-26 14:58 | HHI.PR ---
Subjective Remarks Follow up tachycardia, constipation. Denies dizziness, palpitations and shortness of breath. Positive BM today. Improved tachycardia after having bowel movement. Discussed with RN Objective Vitals Vital Signs Date Time Temp Pulse Resp B/P Pulse Ox O2 Delivery O2 Flow Rate FiO2 08/26/16 05:52 97.6 95 16 105/67 95 08/25/16 19:10 97.5 96 16 122/83 96 I/O 08/25/16 08/25/16 08/25/16 08/26/16 08/26/16 08/26/16 07:00 15:00 23:00 07:00 15:00 23:00 Intake Total 960 ml 1720 ml 240 ml 1440 ml Output Total 1751 ml 1150 ml Balance -791 ml 570 ml 240 ml 1440 ml Intake Oral 960 ml 1720 ml 240 ml 1440 ml Output Urine Total 1750 ml 1150 ml Stool Total 1 ml # Voids 1 2 1 # Bowel Movements 1 0 Objective Remarks GENERAL: This is a well-nourished, well-developed patient, in no apparent distress. SKIN: No rashes, ecchymoses or lesions. Cool and dry. HEAD: Atraumatic. Normocephalic. No temporal or scalp tenderness. EYES: Pupils equal round and reactive. Extraocular motions intact. No scleral icterus. No injection or drainage. ENT: Nose without bleeding. Throat without erythema. Uvula midline. Airway patent. NECK: Trachea midline. No JVD or lymphadenopathy. Supple, nontender, no meningeal signs. CARDIOVASCULAR: Regular rate and rhythm RESPIRATORY: Diminished bases. No wheezes, rales, or rhonchi. GASTROINTESTINAL: Abdomen soft, non-tender, nondistended. No guarding. MUSCULOSKELETAL: Extremities without clubbing, cyanosis, bilateral lower extremity trace edema. Able to wiggle bilateral toes and move bilateral foot weakly. Left upper extremity with ex-fix. NEUROLOGICAL: Awake and alert. Flat affect. - Improved smiled today. Oriented to self, and place. Sensory grossly within normal limits. Normal speech. Procedures s/p right femur IMN s/p exfix left elbow s/p ORIF left patella right patella fx A/P Problem List: (1) Schizoaffective disorder, bipolar type ICD Code: F25.0 Status: Acute (2) Femur fracture, right ICD Code: S72.91XA Status: Acute (3) Elbow fracture ICD Code: S42.409A Status: Acute (4) Patella fracture ICD Code: S82.009A Status: Acute (5) T12 vertebral fracture ICD Code: S22.089A Status: Acute (6) Hypothyroidism ICD Code: E03.9 Status: Chronic Assessment and Plan No changes from medical perspective continue current care. This a 50-year-old gentleman with a past medical history which includes hypothyroidism, bipolar and schizophrenia. Patient is status post trauma alert on 07/12/2016 secondary to suicide attempt patient jumped off a bridge [place] railroad tracks. Patient sustained multiple fractures has been taken to the OR initially was in intensive care unit and intubated for airway protection as well as pain management. Patient was extubated 07/13/2016. Bipolar, schizophrenia - managed by psychiatry team Multiple surgical interventions including: Patient received 4 units PRBCs, 1 FFP and platelets while in the OR. s/p right femur IMN s/p exfix left elbow s/p ORIF left patella right patella fx nonop pelvic fxs Latest surgical intervention- Status post Left elbow ex fix Per Ortho, nonoperative management of right patella and pelvic fractures. Patient will maintain nonweightbearing on left upper extremity/bilateral lower extremity with daily dressing changes to the right femur, left knee, pinned care twice a day of left elbow. Patient will also continue to follow-up with Dr. Gentile if discharged home. - Xarelto 10 mg daily - Continue Physical therapy/occupational therapy - Physical therapy recommends specialty bed auto rolling. Pressure relief. - Air mattress bed with altered rolling - Pain management [place] 7.5/325 mg - May transfer to rehabilitation when ready. Consulted rehabilitation medicine for further management, awaiting for orthopedic new orders for weightbearing status. - Continue wound care as per Ortho recommendation. - TLSO brace ordered per recommendation. Continue to encourage OOB sitting up. - As per ortho, Bilateral patella fractures continue knee immobilizers, but now begin passive range of motion from 0-45, cont NWB BLE and LUE Hypothyroidism - continue levothyroxine TSH level 26.4 T4 0.91 Increase levothyroxine 200 mg daily- recommend patient have recheck in approximately 8 weeks Constipation- Continue pericolace twice a day and prn. MiraLAX daily. Improving - Lactulose PRN UTI - Cipro completed 2/11/60. Denies dysuria, hematuria. Afebrile. Sinus tachycardia. Improved after having bowel movement DVT Prop Xarelto GI Prop Protonix Discuss with patient and nursing Written by Isabella Luther, acting as scribe for Dr. Madrid on 08/26/16 at 14:58. The documentation accurately reflects the work performed [id number] by me on at 15:47. Problem Qualifiers (1) Femur fracture, right: (2) Elbow fracture: (3) T12 vertebral fracture: Isabella Luther Aug 26, 2016 14:58 Larry Madrid MD Aug 26, 2016 15:47
[2016-08-26 19:33] VITALS: BP 116/77; PULSE 102; RESP 16; TEMP 98; O2SAT 96
[2016-08-26] MEDS: QUEtiapine FUMARATE 300 MG TAB PO SCH (21:00)
[2016-08-27 05:57] VITALS: BP 118/74; PULSE 98; RESP 16; TEMP 98.1; O2SAT 96
[2016-08-27] MEDS: LEVOTHYROXINE SODIUM 200 MCG TAB PO SCH (06:12)
[2016-08-27] MEDS: LITHIUM CARBONATE 300 MG CAP PO SCH ×2 (08:36→21:06)
[2016-08-27] MEDS: DOCUSATE SODIUM 50 MG/SENNA 8.6 MG TAB PO SCH ×2 (08:36→21:06)
[2016-08-27] MEDS: POLYETHYLENE GLYCOL 17 GM PKG PO SCH (08:36)
[2016-08-27] MEDS: PANTOPRAZOLE SOD 40 MG DELAYED RELEASE TAB PO SCH (08:36)
[2016-08-27] MEDS: RIVAROXABAN 10 MG TAB PO SCH (08:36)
--- NOTE | 2016-08-27 09:21 | HHI.PR ---
Subjective Remarks Follow-up bradycardia and constipation. Heart rate has been normal and patient has been stooling. He has no new complaints. Discussed with RN Objective Vitals Vital Signs Date Time Temp Pulse Resp B/P Pulse Ox O2 Delivery O2 Flow Rate FiO2 08/27/16 05:57 98.1 98 16 118/74 96 08/26/16 19:33 98.0 102 16 116/77 96 I/O 08/26/16 08/26/16 08/26/16 08/27/16 08/27/16 08/27/16 07:00 15:00 23:00 07:00 15:00 23:00 Intake Total 240 ml 1440 ml 1080 ml 0 ml Balance 240 ml 1440 ml 1080 ml 0 ml Intake Oral 240 ml 1440 ml 1080 ml 0 ml # Voids 2 1 2 1 # Bowel Movements 1 0 2 2 Objective Remarks GENERAL: This is a well-nourished, well-developed patient, in no apparent distress. SKIN: No rashes, ecchymoses or lesions. Cool and dry. HEAD: Atraumatic. Normocephalic. No temporal or scalp tenderness. EYES: Pupils equal round and reactive. Extraocular motions intact. No scleral icterus. No injection or drainage. ENT: Nose without bleeding. Throat without erythema. Uvula midline. Airway patent. NECK: Trachea midline. No JVD or lymphadenopathy. Supple, nontender, no meningeal signs. CARDIOVASCULAR: Regular rate and rhythm RESPIRATORY: Diminished bases. No wheezes, rales, or rhonchi. GASTROINTESTINAL: Abdomen soft, non-tender, nondistended. No guarding. MUSCULOSKELETAL: Extremities without clubbing, cyanosis, bilateral lower extremity trace edema. Able to wiggle bilateral toes and move bilateral foot weakly. Left upper extremity with ex-fix. NEUROLOGICAL: Awake and alert. Oriented to self, and place. Sensory grossly within normal limits. Normal speech. Procedures s/p right femur IMN s/p exfix left elbow s/p ORIF left patella right patella fx A/P Problem List: (1) Schizoaffective disorder, bipolar type ICD Code: F25.0 Status: Acute (2) Femur fracture, right ICD Code: S72.91XA Status: Acute (3) Elbow fracture ICD Code: S42.409A Status: Acute (4) Patella fracture ICD Code: S82.009A Status: Acute (5) T12 vertebral fracture ICD Code: S22.089A Status: Acute (6) Hypothyroidism ICD Code: E03.9 Status: Chronic Assessment and Plan This a 50-year-old gentleman with a past medical history which includes hypothyroidism, bipolar and schizophrenia. Patient is status post trauma alert on 07/12/2016 secondary to suicide attempt patient [place] bridge [place] railroad tracks. Patient sustained multiple fractures has been taken to the OR initially was in intensive care unit and intubated for airway protection as well as pain management. Patient was extubated 07/13/2016. Bipolar, schizophrenia - managed by psychiatry team Multiple surgical interventions including: Patient received 4 units PRBCs, 1 FFP and platelets while in the OR. s/p right femur IMN s/p exfix left elbow s/p ORIF left patella right patella fx nonop pelvic fxs Latest surgical intervention- Status post Left elbow ex fix Per Ortho, nonoperative management of right patella and pelvic fractures. Patient will maintain nonweightbearing on left upper extremity/bilateral lower extremity with daily dressing changes to the right femur, left knee, pinned care twice a day of left elbow. Patient will also continue to follow-up with Dr. Gentile if discharged home. - Xarelto 10 mg daily - Continue Physical therapy/occupational therapy - Physical therapy recommends specialty bed auto rolling. Pressure relief. - Air mattress bed with altered rolling - Pain management [place]'s 7.5/325 mg - May transfer to rehabilitation when ready. Consulted rehabilitation medicine f - Continue wound care as per Ortho recommendation. - TLSO brace ordered per recommendation. Continue to encourage OOB sitting up. - As per ortho, Bilateral patella fractures continue knee immobilizers, but now begin passive range of motion from 0-45, cont NWB BLE and LUE Hypothyroidism - continue levothyroxine TSH level 26.4 T4 0.91 Increase levothyroxine 200 mg daily- recommend patient have recheck in approximately 8 weeks Constipation- Continue pericolace twice a day and prn. MiraLAX daily. Improving - Lactulose PRN UTI - Cipro completed 08/16/59. Denies dysuria, hematuria. Afebrile. Sinus tachycardia. Improved after having bowel movement DVT Prop Xarelto GI Prop Protonix Discharge Planning needs rehab Problem Qualifiers (1) Femur fracture, right: (2) Elbow fracture: (3) T12 vertebral fracture: Larry Madrid MD Aug 27, 2016 09:21 (3) T12 vertebral fracture: Larry Madrid MD Aug 27, 2016 09:21
[2016-08-27] MEDS: ZIPRASIDONE HCL 40 MG CAP PO SCH ×2 (09:45→18:49)
[2016-08-27 16:00] VITALS: BP 109/71; PULSE 102; RESP 18; TEMP 98; O2SAT 100
--- NOTE | 2016-08-27 16:07 | HHI.PYPN ---
Subjective Remarks Mr. Washington is visited today for psychiatric follow-up and he is found in a good mood, with a brighter affect, smiling often, logical, coherent, relevant, he comments that he feels better and he is motivated to continue his physical treatment and get better. He is able to share his plan of getting better and going to visit his father in [place]. He denies depressive symptoms, he denies paranoia, he denies delusions, he denies ideas of reference, he denies suicidal or homicidal ideation, he denies visual and auditory hallucinations. Patient is medication compliant, no significant side effects reported. Review of Systems Other Somatic complaints Objective Alert: Yes [place]: Person, Place (at least) Mood: Calm Affect: Euthymic, Blunted Memory Intact: Immediate, Recent, Remote, Comment (not formally assessed today) Hallucinations: Other (Denies AVH) Delusions: No Delusion Type: Other (No delusions) Suicidal: Ideation (Denies SI) Homicidal: Ideation (No HI) Insight/Judgement Good Vitals/IOs Vital Signs Date Time Temp Pulse Resp B/P Pulse Ox O2 Delivery O2 Flow Rate FiO2 08/27/16 05:57 98.1 98 16 118/74 96 Intake and Output 08/26/16 08/26/16 08/27/16 08:00 16:00 00:00 Intake Total 240 ml 1440 ml 1080 ml Balance 240 ml 1440 ml 1080 ml Assessment & Plan Problem List: (1) Schizoaffective disorder, bipolar type ICD Code: F25.0 Assessment & Plan Estimated LOS: days Justification for Cont. Inpt. Patient has a high risk to decompensate out of the inpatient unit, coordination of safe discharge. Request HC Surrog/Guard Advoc?: Dariel Newsome MD Aug 27, 2016 16:07
[2016-08-27 20:17] VITALS: BP 114/67; PULSE 103; RESP 17; TEMP 97.9; O2SAT 95
[2016-08-27] MEDS: QUEtiapine FUMARATE 300 MG TAB PO SCH (21:06)
[2016-08-28] MEDS: LEVOTHYROXINE SODIUM 200 MCG TAB PO SCH (06:11)
[2016-08-28 06:12] VITALS: BP 108/74; PULSE 97; RESP 16; TEMP 97.7; O2SAT 97
--- NOTE | 2016-08-28 07:45 | HHI.PR ---
Subjective Remarks Follow-up tachycardia and constipation. Denies palpitations. He is stooling. Discussed with RN Objective Vitals Vital Signs Date Time Temp Pulse Resp B/P Pulse Ox O2 Delivery O2 Flow Rate FiO2 08/28/16 06:12 97.7 97 16 108/74 97 08/27/16 20:17 97.9 103 17 114/67 95 08/27/16 16:00 98.0 102 18 109/71 100 I/O 08/27/16 08/27/16 08/27/16 08/28/16 08/28/16 08/28/16 07:00 15:00 23:00 07:00 15:00 23:00 Intake Total 0 ml 400 ml 240 ml Output Total 900 ml 1600 ml Balance 0 ml 400 ml -900 ml -1360 ml Intake Oral 0 ml 400 ml 240 ml Output Urine Total 900 ml 1600 ml # Voids 1 2 1 # Bowel Movements 2 1 Objective Remarks GENERAL: This is a well-nourished, well-developed patient, in no apparent distress. SKIN: No rashes, ecchymoses or lesions. Cool and dry. HEAD: Atraumatic. Normocephalic. No temporal or scalp tenderness. EYES: Pupils equal round and reactive. Extraocular motions intact. No scleral icterus. No injection or drainage. ENT: Nose without bleeding. Throat without erythema. Uvula midline. Airway patent. NECK: Trachea midline. No JVD or lymphadenopathy. Supple, nontender, no meningeal signs. CARDIOVASCULAR: Regular rate and rhythm RESPIRATORY: Diminished bases. No wheezes, rales, or rhonchi. GASTROINTESTINAL: Abdomen soft, non-tender, nondistended. No guarding. MUSCULOSKELETAL: Extremities without clubbing, cyanosis, bilateral lower extremity trace edema. Able to wiggle bilateral toes and move bilateral foot weakly. Left upper extremity with ex-fix. NEUROLOGICAL: Awake and alert. Oriented to self, and place. Sensory grossly within normal limits. Normal speech. Procedures s/p right femur IMN s/p exfix left elbow s/p ORIF left patella right patella fx A/P Problem List: (1) Schizoaffective disorder, bipolar type ICD Code: F25.0 Status: Acute (2) Femur fracture, right ICD Code: S72.91XA Status: Acute (3) Elbow fracture ICD Code: S42.409A Status: Acute (4) Patella fracture ICD Code: S82.009A Status: Acute (5) T12 vertebral fracture ICD Code: S22.089A Status: Acute (6) Hypothyroidism ICD Code: E03.9 Status: Chronic Assessment and Plan This a 50-year-old gentleman with a past medical history which includes hypothyroidism, bipolar and schizophrenia. Patient is status post trauma alert on 07/12/2016 secondary to suicide attempt patient jumped off a bridge [place] railroad tracks. Patient sustained multiple fractures has been taken to the OR initially was in intensive care unit and intubated for airway protection as well as pain management. Patient was extubated 07/13/2016. Bipolar, schizophrenia - managed by psychiatry team Multiple surgical interventions including: Patient received 4 units PRBCs, 1 FFP and platelets while in the OR. s/p right femur IMN s/p exfix left elbow s/p ORIF left patella right patella fx nonop pelvic fxs Latest surgical intervention- Status post Left elbow ex fix Per Ortho, nonoperative management of right patella and pelvic fractures. Patient will maintain nonweightbearing on left upper extremity/bilateral lower extremity with daily dressing changes to the right femur, left knee, pinned care twice a day of left elbow. Patient will also continue to follow-up with Dr. Gentile if discharged home. - Xarelto 10 mg daily - Continue Physical therapy/occupational therapy - Physical therapy recommends specialty bed auto rolling. Pressure relief. - Air mattress bed with altered rolling - Pain management Ransom's 7.5/325 mg - May transfer to rehabilitation when ready. Consulted rehabilitation medicine f - Continue wound care as per Ortho recommendation. - TLSO brace ordered per recommendation. Continue to encourage OOB sitting up. - As per ortho, Bilateral patella fractures continue knee immobilizers, but now begin passive range of motion from 0-45, cont NWB BLE and LUE Hypothyroidism - continue levothyroxine TSH level 26.4 T4 0.91 Increase levothyroxine 200 mg daily- recommend patient have recheck in approximately 8 weeks Constipation- Continue pericolace twice a day and prn. MiraLAX daily. Improving - Lactulose PRN UTI - Cipro completed 08/16/59. Denies dysuria, hematuria. Afebrile. Sinus tachycardia. Improved after having bowel movement DVT Prop Xarelto GI Prop Protonix Discharge Planning needs rehab Problem Qualifiers (1) Femur fracture, right: (2) Elbow fracture: (3) T12 vertebral fracture: Larry Madrid MD Aug 28, 2016 07:45
[2016-08-28] MEDS: ZIPRASIDONE HCL 40 MG CAP PO SCH ×2 (08:43→17:42)
[2016-08-28] MEDS: POLYETHYLENE GLYCOL 17 GM PKG PO SCH (08:43)
[2016-08-28] MEDS: RIVAROXABAN 10 MG TAB PO SCH (08:43)
[2016-08-28] MEDS: PANTOPRAZOLE SOD 40 MG DELAYED RELEASE TAB PO SCH (08:43)
[2016-08-28] MEDS: LITHIUM CARBONATE 300 MG CAP PO SCH ×2 (08:43→20:00)
[2016-08-28] MEDS: DOCUSATE SODIUM 50 MG/SENNA 8.6 MG TAB PO SCH ×2 (08:43→20:00)
--- NOTE | 2016-08-28 14:47 | HHI.PYPN ---
Subjective Remarks Patient seen for psychiatric reevaluation today, patient was found in a good mood, calm and cooperative, eating his breakfast, denies depressive symptoms, denies anxiety, denies paranoia, denies ideas of reference, denies suicidal and homicidal ideation, denies visual and auditory hallucinations. Patient is fully oriented 3, no gross cognitive impairment observed. Fully compliant with medications, no agitation, no aggressive behavior observed or report. Review of Systems Other No somatic complaints Objective Alert: Yes [place]: Person, Place (at least) Mood: Calm Affect: Euthymic, Blunted Memory Intact: Immediate, Recent, Remote, Comment (not formally assessed today) Hallucinations: Other (Denies AVH) Delusions: No Delusion Type: Other (No delusions) Suicidal: Ideation (Denies SI) Homicidal: Ideation (No HI) Insight/Judgement Good Vitals/IOs Vital Signs Date Time Temp Pulse Resp B/P Pulse Ox O2 Delivery O2 Flow Rate FiO2 08/28/16 06:12 97.7 97 16 108/74 97 Intake and Output 08/27/16 08/27/16 08/28/16 08:00 16:00 00:00 Intake Total 0 ml 400 ml 240 ml Output Total 900 ml 1600 ml Balance 0 ml -500 ml -1360 ml Assessment & Plan Problem List: (1) Schizoaffective disorder, bipolar type Assessment & Plan: Patient has showed a very good response to psychotropics and psychotherapy. Continue current medication regimen. Will consult ortho to discuss further management and placement ICD Code: F25.0 Assessment & Plan Estimated LOS: days Justification for Cont. Inpt. In the process of coordination of safe discharge Request HC Surrog/Guard Advoc?: No Dariel Sanford MD Aug 28, 2016 14:47
[2016-08-28 19:42] VITALS: BP 114/77; PULSE 100; RESP 16; TEMP 97.7; O2SAT 97
[2016-08-28] MEDS: QUEtiapine FUMARATE 300 MG TAB PO SCH (20:00)
[2016-08-29] MEDS: LEVOTHYROXINE SODIUM 200 MCG TAB PO SCH (05:56)
[2016-08-29 06:05] VITALS: BP 115/70; PULSE 91; RESP 16; TEMP 98; O2SAT 97
[2016-08-29] MEDS: PANTOPRAZOLE SOD 40 MG DELAYED RELEASE TAB PO SCH (08:34)
[2016-08-29] MEDS: RIVAROXABAN 10 MG TAB PO SCH (08:34)
[2016-08-29] MEDS: DOCUSATE SODIUM 50 MG/SENNA 8.6 MG TAB PO SCH ×2 (08:34→20:38)
[2016-08-29] MEDS: ZIPRASIDONE HCL 40 MG CAP PO SCH ×2 (08:34→17:47)
[2016-08-29] MEDS: LITHIUM CARBONATE 300 MG CAP PO SCH ×2 (08:35→20:38)
[2016-08-29] MEDS: POLYETHYLENE GLYCOL 17 GM PKG PO SCH (08:35)
[2016-08-29 09:06] VITALS: BP 115/70; PULSE 91; RESP 16; TEMP 98; O2SAT 97
--- NOTE | 2016-08-29 09:51 | HHI.PR ---
Subjective Remarks F/u ortho injuries. Smiling no complaints dw RN and rehab MD Objective Vitals Vital Signs Date Time Temp Pulse Resp B/P Pulse Ox O2 Delivery O2 Flow Rate FiO2 08/29/16 09:06 98.0 91 16 115/70 97 08/29/16 06:05 98.0 91 16 115/70 97 08/28/16 19:42 97.7 100 16 114/77 97 I/O 08/28/16 08/28/16 08/28/16 08/29/16 08/29/16 08/29/16 07:00 15:00 23:00 07:00 15:00 23:00 Intake Total 240 ml 1440 ml 1080 ml Output Total 1600 ml 2475 ml 650 ml Balance -1360 ml 1440 ml -1395 ml -650 ml Intake Oral 240 ml 1440 ml 1080 ml Output Urine Total 1600 ml 2475 ml 650 ml # Voids 1 3 1 # Bowel Movements 1 0 1 0 Imaging Last Impressions Pelvis X-Ray 08/22/16 0000 Signed Impressions: Service Date/Time: Monday, August 22, 2016 08:53 - CONCLUSION: 1. Stable appearance of the left pubic rami fractures. 2. Stable postsurgical changes involving the right femur. Meño Castillo MD Knee X-Ray 08/22/16 0000 Signed Impressions: Service Date/Time: Monday, August 22, 2016 08:52 - CONCLUSION: Stable appearance of the fractures. Meño Castillo MD Elbow X-Ray 08/22/16 0000 Signed Impressions: Service Date/Time: Monday, August 22, 2016 08:57 - CONCLUSION: Stable appearance. Meño Castillo MD Wrist X-Ray 08/04/16 0000 Signed Impressions: Service Date/Time: Thursday, August 04, 2016 07:59 - CONCLUSION: Non- displaced fracture involving the distal radius and radiocarpal joint. Julius Barillas MD FACR Femur X-Ray 07/29/16 0000 Signed Impressions: Service Date/Time: Friday, July 29, 2016 10:19 - CONCLUSION: Stable examination of the right femur in this patient post recent right femur ORIF for treatment of a intertrochanteric fracture in distal femoral diaphysis fracture. There is also a comminuted patella fracture present. Moses Buenrostro MD Abdomen X-Ray 07/29/16 0000 Signed Impressions: Service Date/Time: Friday, July 29, 2016 18:13 - CONCLUSION: Moderate stool burden suggesting constipation. No dilated loops of bowel. Bruno Brito Jr., MD Objective Remarks GENERAL: This is a well-nourished, well-developed patient, in no apparent distress. SKIN: No rashes, ecchymoses or lesions. Cool and dry. HEAD: Atraumatic. Normocephalic. No temporal or scalp tenderness. EYES: Pupils equal round and reactive. Extraocular motions intact. No scleral icterus. No injection or drainage. ENT: Nose without bleeding. Throat without erythema. Uvula midline. Airway patent. NECK: Trachea midline. No JVD or lymphadenopathy. Supple, nontender, no meningeal signs. CARDIOVASCULAR: Regular rate and rhythm RESPIRATORY: Diminished bases. No wheezes, rales, or rhonchi. GASTROINTESTINAL: Abdomen soft, non-tender, nondistended. No guarding. MUSCULOSKELETAL: Extremities without clubbing, cyanosis, bilateral lower extremity trace edema. Able to wiggle bilateral toes and move bilateral foot weakly. Left upper extremity with ex-fix. NEUROLOGICAL: Awake and alert. Oriented to self, and place. Sensory grossly within normal limits. Normal speech. Procedures s/p right femur IMN s/p exfix left elbow s/p ORIF left patella right patella fx A/P Problem List: (1) Schizoaffective disorder, bipolar type ICD Code: F25.0 Status: Acute (2) Femur fracture, right ICD Code: S72.91XA Status: Acute (3) Elbow fracture ICD Code: S42.409A Status: Acute (4) Patella fracture ICD Code: S82.009A Status: Acute (5) T12 vertebral fracture ICD Code: S22.089A Status: Acute (6) Hypothyroidism ICD Code: E03.9 Status: Chronic Assessment and Plan This a 50-year-old gentleman with a past medical history which includes hypothyroidism, bipolar and schizophrenia. Patient is status post trauma alert on 07/12/2016 secondary to suicide attempt patient jumped off a bridge onto railroad tracks. Patient sustained multiple fractures has been taken to the OR initially was in intensive care unit and intubated for airway protection as well as pain management. Patient was extubated 07/13/2016. Bipolar, schizophrenia - managed by psychiatry team Multiple surgical interventions including: Patient received 4 units PRBCs, 1 FFP and platelets while in the OR. s/p right femur IMN s/p exfix left elbow s/p ORIF left patella right patella fx nonop pelvic fxs Latest surgical intervention- Status post Left elbow ex fix Per Ortho, nonoperative management of right patella and pelvic fractures. Patient will maintain nonweightbearing on left upper extremity/bilateral lower extremity with daily dressing changes to the right femur, left knee, pinned care twice a day of left elbow. Patient will also continue to follow-up with Dr. Gentile if discharged home. - Xarelto 10 mg daily - Continue Physical therapy/occupational therapy - Physical therapy recommends specialty bed auto rolling. Pressure relief. - Air mattress bed with altered rolling - Pain management Bud's 7.5/325 mg - May transfer to rehabilitation when ready. Consulted rehabilitation medicine f - Continue wound care as per Ortho recommendation. - TLSO brace ordered per recommendation. Continue to encourage OOB sitting up. - As per ortho, Bilateral patella fractures continue knee immobilizers, but now begin passive range of motion from 0-45, cont NWB BLE and LUE Hypothyroidism - continue levothyroxine TSH level 26.4 T4 0.91 Increase levothyroxine 200 mg daily- recommend patient have recheck in approximately 8 weeks Constipation- Continue pericolace twice a day and prn. MiraLAX daily. Improving - Lactulose PRN UTI - Cipro completed 08/16/59. Denies dysuria, hematuria. Afebrile. Sinus tachycardia. Improved after having bowel movement DVT Prop Xarelto GI Prop Protonix Discharge Planning needs rehab Problem Qualifiers (1) Femur fracture, right: (2) Elbow fracture: (3) T12 vertebral fracture: Larry Madrid MD Aug 29, 2016 09:51
--- NOTE | 2016-08-29 12:35 | HHI.PYPN ---
Subjective Remarks Patient remains calm pleasant and cooperative. He would like to get some of his orthopedic issues more resolved but he has no psychiatric complaints or obvious symptoms. Review of Systems Except as stated in HPI: all other systems reviewed are Neg Objective Alert: Yes [place]: Person, Place (at least) Mood: Calm Affect: Euthymic, Blunted Memory Intact: Immediate, Recent, Remote, Comment (not formally assessed today) Hallucinations: Other (Denies AVH) Delusions: No Delusion Type: Other (No delusions) Suicidal: Ideation (Denies SI) Homicidal: Ideation (No HI) Insight/Judgement Adequate at this time. Vitals/IOs Vital Signs Date Time Temp Pulse Resp B/P Pulse Ox O2 Delivery O2 Flow Rate FiO2 08/29/16 09:06 98.0 91 16 115/70 97 Intake and Output 08/28/16 08/28/16 08/29/16 08:00 16:00 00:00 Intake Total 1440 ml 1080 ml Output Total 2475 ml Balance 1440 ml -1395 ml Assessment & Plan Problem List: (1) Schizoaffective disorder, bipolar type ICD Code: F25.0 Assessment & Plan Estimated LOS: days patient continues to require orthopedic care and orthopedic rehabilitation. His psychiatric issues are felt to be stable at this point. Justification for Cont. Inpt. Patient is unable to care for himself. Request HC Surrog/Guard Advoc?: No George Garcias MD Aug 29, 2016 12:35
--- NOTE | 2016-08-29 16:31 | HHI.PR ---
Subjective Subjective Comments Awake and alert. Resting comfortably in bed. Denies any pain complaints. No shortness of breath noted. Allergies: Coded Allergies: Tuna (Verified Allergy, Severe, Burning, 08/25/16) Haldol (Verified Allergy, Unknown, 07/13/16) Review of Systems All other ROS: ROS reviewed as documented in chart Exam I&O / VS 08/28/16 08/28/16 08/29/16 15:00 23:00 07:00 Intake Total 1440 ml 1080 ml Output Total 2475 ml 650 ml Balance 1440 ml -1395 ml -650 ml Intake Oral 1440 ml 1080 ml Output Urine Total 2475 ml 650 ml # Voids 3 1 # Bowel Movements 0 1 0 Vital Signs Date Time Temp Pulse Resp B/P Pulse Ox O2 Delivery O2 Flow Rate FiO2 08/29/16 09:06 98.0 91 16 115/70 97 08/29/16 06:05 98.0 91 16 115/70 97 08/28/16 19:42 97.7 100 16 114/77 97 General: No acute distress, Other (Awake and alert, resting comfortably in bed , affect blunted, limited eye contact) Skin: Other (No rash noted) Psychiatric: Cooperative Orientation: oriented to Self, oriented to Place, oriented to Time, oriented to Situation Neurologic: Speech (Clear) Motor: Left Upper Extremity (External fixator in place and pin sites clear and intact), Right Lower Extremity (CKS in place and full knee extension; moves toes to command and sensation intact), Left Lower Extremity (CKS in place and full knee extension; moves toes to command and sensation intact) Assessment and Plan Diagnosis: (1) Femur fracture, right (2) Right patella fracture (3) Left radial fracture (4) Left patella fracture (5) Elbow dislocation (6) Elbow fracture (7) T12 vertebral fracture (8) Pelvic fracture (9) Impaired mobility and ADLs (10) Schizoaffective disorder, bipolar type (11) Suicide attempt Assessment 1. Suicide attempt 07/12/16 with multiple fractures including right femur status post IM nail, right patella treated nonsurgically with immobilization, left proximal radius and ulna fracture dislocation/elbow fracture dislocation status post external fixator placement, left patella fracture status post ORIF and pelvic fracture 2. T12 compression fracture 3. Hypothyroidism 4. Schizoaffective disorder, Bipolar type Plan 1. Mobilize OOB to stretcher chair with Roho cushion and NWB bilateral LE and left LE and TLSO. Tolerating 4 hours per day up to stretcher chair. Ortho followup on 08/22/16 and now permitted ROM bilateral knee 0-45 degrees 2. OT providing ROM 3. Case management working on placement to SNF given NWB in 3 extremities 4. Turn and reposition q 2 hours to protect skin 5. Roho cushion ordered for when up to sitting. 6. Will continue to follow while hospitalized and at discharge as appropriate Mireya Rodriguez MD Aug 29, 2016 16:31
[2016-08-29 18:53] VITALS: BP 126/69; PULSE 104; RESP 16; TEMP 97.9; O2SAT 94
[2016-08-29] MEDS: QUEtiapine FUMARATE 300 MG TAB PO SCH (20:38)
[2016-08-30 05:27] VITALS: BP 117/70; PULSE 102; RESP 18; TEMP 97.9; O2SAT 95
[2016-08-30] MEDS: LEVOTHYROXINE SODIUM 200 MCG TAB PO SCH (06:00)
[2016-08-30] MEDS ORDERED: LACTULOSE SYRUP 20 GM/30 ML CUP PO ONE (09:00)
[2016-08-30] MEDS: POLYETHYLENE GLYCOL 17 GM PKG PO SCH (10:07)
[2016-08-30] MEDS: ZIPRASIDONE HCL 40 MG CAP PO SCH ×2 (10:07→17:28)
[2016-08-30] MEDS: LITHIUM CARBONATE 300 MG CAP PO SCH ×2 (10:07→20:35)
[2016-08-30] MEDS: PANTOPRAZOLE SOD 40 MG DELAYED RELEASE TAB PO SCH (10:08)
[2016-08-30] MEDS: DOCUSATE SODIUM 50 MG/SENNA 8.6 MG TAB PO SCH ×2 (10:08→20:35)
[2016-08-30] MEDS: RIVAROXABAN 10 MG TAB PO SCH (10:08)
--- NOTE | 2016-08-30 10:14 | HHI.PR ---
Subjective Remarks Follow up tachycardia, constipation. Patient complaints of intermitted cramping abdominal pain, that started last night. Patient and nursing report small firm formed BM last night. Patient reports positive flatus. Offers no other complaints denies N/V. Denies dizziness, palpitations and shortness of breath. Objective Vitals Vital Signs Date Time Temp Pulse Resp B/P Pulse Ox O2 Delivery O2 Flow Rate FiO2 08/30/16 05:27 97.9 102 18 117/70 95 08/29/16 18:53 97.9 104 16 126/69 94 I/O 08/29/16 08/29/16 08/29/16 08/30/16 08/30/16 08/30/16 07:00 15:00 23:00 07:00 15:00 23:00 Intake Total 600 ml 360 ml Output Total 650 ml Balance -650 ml 600 ml 360 ml Intake Oral 600 ml 360 ml Output Urine Total 650 ml # Voids 1 2 6 # Bowel Movements 0 1 3 Objective Remarks GENERAL: This is a well-nourished, well-developed patient, in no apparent distress. SKIN: No rashes, ecchymoses or lesions. Cool and dry. HEAD: Atraumatic. Normocephalic. No temporal or scalp tenderness. EYES: Pupils equal round and reactive. Extraocular motions intact. No scleral icterus. No injection or drainage. CARDIOVASCULAR: Regular rate and rhythm RESPIRATORY: Diminished bases. No wheezes, rales, or rhonchi. GASTROINTESTINAL: Abdomen soft, tender to palpation LLQ, hypoactive BS, nondistended. No guarding. MUSCULOSKELETAL: Extremities without clubbing, cyanosis, bilateral lower extremity trace edema. Able to wiggle bilateral toes and move bilateral foot weakly. Left upper extremity with ex-fix. NEUROLOGICAL: Awake and alert. Affect. - Improved smiling. Oriented x 3. Sensory grossly within normal limits. Normal speech. Procedures s/p right femur IMN s/p exfix left elbow s/p ORIF left patella right patella fx A/P Problem List: (1) Schizoaffective disorder, bipolar type ICD Code: F25.0 Status: Acute (2) Femur fracture, right ICD Code: S72.91XA Status: Acute (3) Elbow fracture ICD Code: S42.409A Status: Acute (4) Patella fracture ICD Code: S82.009A Status: Acute (5) T12 vertebral fracture ICD Code: S22.089A Status: Acute (6) Hypothyroidism ICD Code: E03.9 Status: Chronic Assessment and Plan No changes from medical perspective continue current care. This a 50-year-old gentleman with a past medical history which includes hypothyroidism, bipolar and schizophrenia. Patient is status post trauma alert on 07/12/2016 secondary to suicide attempt patient jumped off a bridge onto railroad tracks. Patient sustained multiple fractures has been taken to the OR initially was in intensive care unit and intubated for airway protection as well as pain management. Patient was extubated 07/13/2016. Bipolar, schizophrenia - managed by psychiatry team Multiple surgical interventions including: Patient received 4 units PRBCs, 1 FFP and platelets while in the OR. s/p right femur IMN s/p exfix left elbow s/p ORIF left patella right patella fx nonop pelvic fxs Latest surgical intervention- Status post Left elbow ex fix Per Ortho, nonoperative management of right patella and pelvic fractures. Patient will maintain nonweightbearing on left upper extremity/bilateral lower extremity with daily dressing changes to the right femur, left knee, pinned care twice a day of left elbow. Patient will also continue to follow-up with Dr. Gentile if discharged home. - Xarelto 10 mg daily - Continue Physical therapy/occupational therapy - Physical therapy recommends specialty bed auto rolling. Pressure relief. - Air mattress bed with altered rolling - Pain management Gheens's 7.5/325 mg - May transfer to rehabilitation when ready. Consulted rehabilitation medicine for further management, awaiting for orthopedic new orders for weightbearing status. - Continue wound care as per Ortho recommendation. - TLSO brace ordered per recommendation. Continue to encourage OOB sitting up. - As per ortho, Bilateral patella fractures continue knee immobilizers, but now begin passive range of motion from 0-45, cont NWB BLE and LUE Hypothyroidism - continue levothyroxine TSH level 26.4 T4 0.91 Increase levothyroxine 200 mg daily- recommend patient have recheck in approximately 8 weeks Abdominal pain Constipation- Continue pericolace twice a day and prn. MiraLAX daily. Improving - Lactulose PRN - KUB reviewed by myself and Dr. Pedro, moderate amount of stool through out the colon - mag citrate x 1 bottle UTI - Cipro completed 08/16/59. Denies dysuria, hematuria. Afebrile. Sinus tachycardia. Improved DVT Prop Xarelto GI Prop Protonix Discuss with patient and nursing and Dr. Pedro Problem Qualifiers (1) Femur fracture, right: (2) Elbow fracture: (3) T12 vertebral fracture: Isabella Luther Aug 30, 2016 10:14 Joel Basurto MD Sep 04, 2016 16:31
--- NOTE | 2016-08-30 10:14 | RADRPT ---
EXAM DATE/TIME: 08/30/2016 09:04 [facility] COMPARISON: ABDOMEN KUB ONLY, July 29, 2016, 18:13. INDICATIONS : Abdominal pain starting today MEDICAL HISTORY : None. SURGICAL HISTORY : None. ENCOUNTER: Initial ACUITY: 1 day PAIN SCORE: 10/10 LOCATION: Entire abdomen FINDINGS: 2 supine AP views of the abdomen. Moderate amount of stool seen diffusely in the colon. Right-sided h ip screw in place. No abnormal abdominal calcification. Old T12 vertebral body fracture. CONCLUSION: Moderate amount of stool again seen throughout the colon. Bravo Anton MD on August 30, 2016 at 10:11 Board Certified Radiologist. This report was verified electronically.
[2016-08-30 10:40] LABS: AUTOMATED NEUTROPHIL # 6.2 TH/MM3 (1.8-7.7); BASOPHIL # 0.1 TH/MM3 (0-0.2); BASOPHIL % 0.7 % (0.0-2.0); EOSINOPHIL # 0.3 TH/MM3 (0-0.4); EOSINOPHIL % 3.2 % (0.0-4.0); HEMATOCRIT 38.5 % (39.0-51.0); HEMO FLAGS DIFF FINAL; MEAN CELL VOLUME 87.6 FL (80.0-100.0); MEAN CORPUSCULAR HEMOGLOBIN 29.8 PG (27.0-34.0); MONO % 5.5 % (0.0-8.0); NEUT % 77.6 % (16.0-70.0); PLATELET COUNT 240 TH/MM3 (150-450); RED CELL DISTRIBUTION WIDTH 15.2 % (11.6-17.2)
--- NOTE | 2016-08-30 11:04 | HHI.PYPN ---
Subjective Remarks Today patient seems to be in distress, complaining of abdominal cramps, rectal discomfort, he is sweaty, in visible pain, will communicate with primary medical team about this issue. Other than that, patient reports good mood, denies suicidal or homicidal ideation, denies visual and auditory hallucinations , oriented 3, compliant with medication. Review of Systems Constitutional: COMPLAINS OF: Diaphoretic episodes, Night Sweats Endocrine: DENIES: Heat/cold intolerance, Polydipsia, Polyuria, Polyphagia Eyes: DENIES: Blurred vision, Diplopia, Eye inflammation, Eye pain, Vision loss , Photosensitivity, Double Vision Respiratory: DENIES: Apneas, Cough, Snoring, Wheezing, Hemoptysis, Sputum production, Shortness of breath Cardiovascular: DENIES: Chest pain, Palpitations, Syncope, Dyspnea on Exertion , PND, Lower Extremity Edema, Orthopnea, Claudication Gastrointestinal: COMPLAINS OF: Abdominal pain, Constipation Hematologic/lymphatic: DENIES: Bruising, Lymphadenopathy Immunologic/allergic: DENIES: Eczema, Urticaria Neurologic: DENIES: Abnormal gait, Headache, Localized weakness, Paresthesias, Seizures, Speech Problems, Tremor, Poor Balance Psychiatric: DENIES: Anxiety, Confusion, Mood changes, Depression, Hallucinations, Agitation, Suicidal Ideation, Homicidal Ideation, Delusions Objective Alert: Yes [place]: Person, Place (at least), Date, Situation Mood: Calm Affect: Euthymic, Blunted Memory Intact: Immediate, Recent, Remote, Comment (not formally assessed today) Hallucinations: Other (Denies AVH) Delusions: No Delusion Type: Other (No delusions) Suicidal: Ideation (Denies SI) Homicidal: Ideation (No HI) Insight/Judgement good Labs Test 08/30/16 09:55 White Blood Count 8.0 TH/MM3 Red Blood Count 4.40 MIL/MM3 Hemoglobin 13.1 GM/DL Hematocrit 38.5 % Mean Corpuscular Volume 87.6 FL Mean Corpuscular Hemoglobin 29.8 PG Mean Corpuscular Hemoglobin 34.0 % Concent Red Cell Distribution Width 15.2 % Platelet Count 240 TH/MM3 Mean Platelet Volume 9.0 FL Neutrophils (%) (Auto) 77.6 % Lymphocytes (%) (Auto) 13.0 % Monocytes (%) (Auto) 5.5 % Eosinophils (%) (Auto) 3.2 % Basophils (%) (Auto) 0.7 % Neutrophils # (Auto) 6.2 TH/MM3 Lymphocytes # (Auto) 1.0 TH/MM3 Monocytes # (Auto) 0.4 TH/MM3 Eosinophils # (Auto) 0.3 TH/MM3 Basophils # (Auto) 0.1 TH/MM3 CBC Comment DIFF FINAL Differential Comment Vitals/IOs Vital Signs Date Time Temp Pulse Resp B/P Pulse Ox O2 Delivery O2 Flow Rate FiO2 08/30/16 05:27 97.9 102 18 117/70 95 Intake and Output 08/29/16 08/29/16 08/30/16 08:00 16:00 00:00 Intake Total 600 ml Output Total 650 ml Balance -650 ml 600 ml Assessment & Plan Problem List: (1) Schizoaffective disorder, bipolar type ICD Code: F25.0 Assessment & Plan Estimated LOS: days Justification for Cont. Inpt. Patient has showed a significant response to psychotropics and psychotherapy, no psychiatric stable, but needs further ortho care Request HC Surrog/Guard Advoc?: Dariel Newsome MD Aug 30, 2016 11:04
[2016-08-30 11:09] LABS: ALKALINE PHOSPHATASE 216 U/L (45-117); ALT (GPT) 32 U/L (12-78); ANION GAP 10 MEQ/L (5-15); AST (GOT) 11 U/L (15-37); BICARBONATE 25.7 MEQ/L (21.0-32.0); BLOOD UREA NITROGEN 12 MG/DL (7-18); CHLORIDE 101 MEQ/L (98-107); GLOMERULAR FILTRATION RATE 91 ML/MIN (>89); POTASSIUM 3.8 MEQ/L (3.5-5.1); SODIUM (NA) 137 MEQ/L (136-145); TOTAL BILIRUBIN ADULT 0.5 MG/DL (0.2-1.0)
[2016-08-30] MEDS ORDERED: MAGNESIUM CITRATE SOLN 300 ML BTL PO ONE (12:30)
[2016-08-30 17:11] VITALS: BP 120/86; PULSE 101; RESP 18; TEMP 98.2; O2SAT 95
[2016-08-30] MEDS: QUEtiapine FUMARATE 300 MG TAB PO SCH (20:35)
[2016-08-31] MEDS: LEVOTHYROXINE SODIUM 200 MCG TAB PO SCH (05:58)
[2016-08-31 06:36] VITALS: BP 125/88; PULSE 93; RESP 14; TEMP 97.7; O2SAT 97
[2016-08-31] MEDS: ZIPRASIDONE HCL 40 MG CAP PO SCH ×2 (09:33→18:41)
[2016-08-31] MEDS: PANTOPRAZOLE SOD 40 MG DELAYED RELEASE TAB PO SCH (09:34)
[2016-08-31] MEDS: DOCUSATE SODIUM 50 MG/SENNA 8.6 MG TAB PO SCH ×2 (09:34→20:53)
[2016-08-31] MEDS: LITHIUM CARBONATE 300 MG CAP PO SCH ×2 (09:34→20:53)
[2016-08-31] MEDS: POLYETHYLENE GLYCOL 17 GM PKG PO SCH (09:34)
[2016-08-31] MEDS: RIVAROXABAN 10 MG TAB PO SCH (09:34)
--- NOTE | 2016-08-31 10:36 | HHI.PR ---
Subjective Remarks Follow up tachycardia, constipation. Patient has had a total of 6 BMs after lactulose and magnesium citrate. Patient reports felling better, no longer has the rectal pressure and abd discomfort has improved. Patient would like to continue bowel regiment to avoid constipation. Offers no other complaints denies N/V. Denies dizziness, palpitations and shortness of breath. Objective Vitals Vital Signs Date Time Temp Pulse Resp B/P Pulse Ox O2 Delivery O2 Flow Rate FiO2 08/31/16 06:36 97.7 93 14 125/88 97 08/30/16 17:11 98.2 101 18 120/86 95 I/O 08/30/16 08/30/16 08/30/16 08/31/16 08/31/16 08/31/16 07:00 15:00 23:00 07:00 15:00 23:00 Intake Total 360 ml 500 ml 500 ml Output Total 600 ml Balance 360 ml -100 ml 500 ml Intake Oral 360 ml 500 ml 500 ml Output Urine Total 600 ml # Voids 6 1 # Bowel Movements 3 1 1 Result Diagram: 08/30/1655 08/30/1655 Objective Remarks GENERAL: This is a well-nourished, well-developed patient, in no apparent distress. SKIN: No rashes, ecchymoses or lesions. Cool and dry. HEAD: Atraumatic. Normocephalic. No temporal or scalp tenderness. EYES: Pupils equal round and reactive. Extraocular motions intact. No scleral icterus. No injection or drainage. CARDIOVASCULAR: Regular rate and rhythm RESPIRATORY: Diminished bases. No wheezes, rales, or rhonchi. GASTROINTESTINAL: Abdomen soft, slightly tender to palpation, nondistended. No guarding. MUSCULOSKELETAL: Extremities without clubbing, cyanosis, bilateral lower extremity trace edema. Able to wiggle bilateral toes and move bilateral foot weakly. Left upper extremity with ex-fix. NEUROLOGICAL: Awake and alert. Affect. - Improved smiling. Oriented x 3. Sensory grossly within normal limits. Normal speech. Procedures s/p right femur IMN s/p exfix left elbow s/p ORIF left patella right patella fx A/P Problem List: (1) Schizoaffective disorder, bipolar type ICD Code: F25.0 Status: Acute (2) Femur fracture, right ICD Code: S72.91XA Status: Acute (3) Elbow fracture ICD Code: S42.409A Status: Acute (4) Patella fracture ICD Code: S82.009A Status: Acute (5) T12 vertebral fracture ICD Code: S22.089A Status: Acute (6) Hypothyroidism ICD Code: E03.9 Status: Chronic Assessment and Plan This a 50-year-old gentleman with a past medical history which includes hypothyroidism, bipolar and schizophrenia. Patient is status post trauma alert on 07/12/2016 secondary to suicide attempt patient jumped off a bridge onto railroad tracks. Patient sustained multiple fractures has been taken to the OR initially was in intensive care unit and intubated for airway protection as well as pain management. Patient was extubated 07/13/2016. Bipolar, schizophrenia - managed by psychiatry team Multiple surgical interventions including: Patient received 4 units PRBCs, 1 FFP and platelets while in the OR. s/p right femur IMN s/p exfix left elbow s/p ORIF left patella right patella fx nonop pelvic fxs Latest surgical intervention- Status post Left elbow ex fix Per Ortho, nonoperative management of right patella and pelvic fractures. Patient will maintain nonweightbearing on left upper extremity/bilateral lower extremity with daily dressing changes to the right femur, left knee, pinned care twice a day of left elbow. Patient will also continue to follow-up with Dr. Gentile if discharged home. - Xarelto 10 mg daily - Continue Physical therapy/occupational therapy - Physical therapy recommends specialty bed auto rolling. Pressure relief. - Air mattress bed with altered rolling - Pain management [place]'s 7.5/325 mg - May transfer to rehabilitation when ready. Consulted rehabilitation medicine for further management, awaiting for orthopedic new orders for weightbearing status. - Continue wound care as per Ortho recommendation. - TLSO brace ordered per recommendation. Continue to encourage OOB sitting up. - As per ortho, Bilateral patella fractures continue knee immobilizers, but now begin passive range of motion from 0-45, cont NWB BLE and LUE Hypothyroidism - continue levothyroxine TSH level 26.4 T4 0.91 Increase levothyroxine 200 mg daily- recommend patient have recheck in approximately 8 weeks Abdominal pain Constipation- Continue pericolace twice a day and prn. MiraLAX daily. Improving - change to Lactulose daily - KUB 08/30/2016, moderate amount of stool through out the colon UTI - Cipro completed 08/16/59. Denies dysuria, hematuria. Afebrile. Sinus tachycardia. Improving DVT Prop Xarelto GI Prop Protonix Discuss with patient and nursing Written by Isabella Luther, acting as scribe for Dr. Pedro on 08/31/16 at 10:35. Attending Statement The documentation accurately reflects the work performed [id number] by me on at 10:35. Problem Qualifiers (1) Femur fracture, right: (2) Elbow fracture: (3) T12 vertebral fracture: Isabella Luther Aug 31, 2016 10:36 Joel Basurto MD Sep 04, 2016 16:32
--- NOTE | 2016-08-31 13:16 | HHI.PYPN ---
Subjective Remarks Patient seen today for psychiatric evaluation, he was found eating his breakfast , reports good mood, denies anxiety, denies depression, denies cramping abdominal pain, denies diarrhea or constipation, denies suicidal or homicidal ideation, denies visual and auditory hallucinations. She is oriented 3, compliant with medications. Review of Systems Other No somatic complaints today Objective Alert: Yes [place]: Person, Place (at least), Date, Situation Mood: Calm Affect: Euthymic, Blunted Memory Intact: Immediate, Recent, Remote, Comment (not formally assessed today) Hallucinations: Other (Denies AVH) Delusions: No Delusion Type: Other (No delusions) Suicidal: Ideation (Denies SI) Homicidal: Ideation (No HI) Insight/Judgement good Vitals/IOs Vital Signs Date Time Temp Pulse Resp B/P Pulse Ox O2 Delivery O2 Flow Rate FiO2 08/31/16 06:36 97.7 93 14 125/88 97 Intake and Output 08/30/16 08/30/16 08/31/16 08:00 16:00 00:00 Intake Total 360 ml 500 ml Output Total 600 ml Balance 360 ml -100 ml Assessment & Plan Problem List: (1) Schizoaffective disorder, bipolar type ICD Code: F25.0 Assessment & Plan Estimated LOS: days Justification for Cont. Inpt. Patient is still needs close monitoring of physical care of his wounds, psychiatrically stable at this moment, awaiting to coordinate safe discharge. Request HC Surrog/Guard Advoc?: No Dariel Sanford MD Aug 31, 2016 13:15
[2016-08-31 17:07] VITALS: BP 114/82; PULSE 106; RESP 20; TEMP 98.8; O2SAT 95
[2016-08-31] MEDS: QUEtiapine FUMARATE 300 MG TAB PO SCH (20:53)
[2016-09-01] MEDS: LEVOTHYROXINE SODIUM 200 MCG TAB PO SCH (05:43)
[2016-09-01 06:09] VITALS: BP 103/64; PULSE 98; RESP 20; TEMP 97.5; O2SAT 95
[2016-09-01] MEDS: ZIPRASIDONE HCL 40 MG CAP PO SCH ×2 (09:00→17:42)
[2016-09-01] MEDS: POLYETHYLENE GLYCOL 17 GM PKG PO SCH (09:00)
[2016-09-01] MEDS: LITHIUM CARBONATE 300 MG CAP PO SCH ×2 (09:00→20:25)
[2016-09-01] MEDS: DOCUSATE SODIUM 50 MG/SENNA 8.6 MG TAB PO SCH ×2 (09:00→20:25)
[2016-09-01] MEDS: LACTULOSE SYRUP 20 GM/30 ML CUP PO SCH (09:00)
[2016-09-01] MEDS: PANTOPRAZOLE SOD 40 MG DELAYED RELEASE TAB PO SCH (09:00)
[2016-09-01] MEDS: RIVAROXABAN 10 MG TAB PO SCH (09:00)
--- NOTE | 2016-09-01 10:43 | HHI.PR ---
Subjective Remarks Follow up on patient with tachycardia and constipation. Patient reports no BM x 2 days. (+)flatus. Denies any N/V or abdominal pain or cramping. No other medical complaints at this time including no SOB, fevers, chest pain or palpitations. Objective Vitals Vital Signs Date Time Temp Pulse Resp B/P Pulse Ox O2 Delivery O2 Flow Rate FiO2 09/01/16 06:09 97.5 98 20 103/64 95 08/31/16 17:07 98.8 106 20 114/82 95 I/O 08/31/16 08/31/16 08/31/16 09/01/16 09/01/16 09/01/16 07:00 15:00 23:00 07:00 15:00 23:00 Intake Total 500 ml 720 ml 840 ml 240 ml Output Total 950 ml 2400 ml 1000 ml Balance 500 ml -230 ml -1560 ml -760 ml Intake Oral 500 ml 720 ml 840 ml 240 ml Output Urine Total 950 ml 2400 ml 1000 ml # Voids 1 # Bowel Movements 1 1 Result Diagram: 08/30/16 0955 08/30/16 0955 Imaging Last Impressions Abdomen X-Ray 08/30/16 0000 Signed Impressions: Service Date/Time: Tuesday, August 30, 2016 09:04 - CONCLUSION: Moderate amount of stool again seen throughout the colon. Bravo Anton MD Pelvis X-Ray 08/22/16 0000 Signed Impressions: Service Date/Time: Monday, August 22, 2016 08:53 - CONCLUSION: 1. Stable appearance of the left pubic rami fractures. 2. Stable postsurgical changes involving the right femur. Meño Castillo MD Knee X-Ray 08/22/16 0000 Signed Impressions: Service Date/Time: Monday, August 22, 2016 08:52 - CONCLUSION: Stable appearance of the fractures. Meño Castillo MD Elbow X-Ray 08/22/16 0000 Signed Impressions: Service Date/Time: Monday, August 22, 2016 08:57 - CONCLUSION: Stable appearance. Meño Castillo MD Wrist X-Ray 08/04/16 0000 Signed Impressions: Service Date/Time: Thursday, August 04, 2016 07:59 - CONCLUSION: Non- displaced fracture involving the distal radius and radiocarpal joint. Jluius Barillas MD FACR Femur X-Ray 07/29/16 0000 Signed Impressions: Service Date/Time: Friday, July 29, 2016 10:19 - CONCLUSION: Stable examination of the right femur in this patient post recent right femur ORIF for treatment of a intertrochanteric fracture in distal femoral diaphysis fracture. There is also a comminuted patella fracture present. Moses Buenrostro MD Objective Remarks GENERAL: This is a well-nourished, well-developed patient, in no apparent distress. SKIN: No rashes, ecchymoses or lesions. Cool and dry. HEAD: Atraumatic. Normocephalic. No temporal or scalp tenderness. EYES: Pupils equal round and reactive. Extraocular motions intact. No scleral icterus. No injection or drainage. CARDIOVASCULAR: Regular rate and rhythm RESPIRATORY: Diminished bases. No wheezes, rales, or rhonchi. GASTROINTESTINAL: Abdomen soft, slightly tender to palpation, nondistended. No guarding. MUSCULOSKELETAL: Extremities without clubbing, cyanosis, bilateral lower extremity trace edema. Able to wiggle bilateral toes and move bilateral foot weakly. Left upper extremity with ex-fix. NEUROLOGICAL: Awake and alert. Affect. - Improved smiling. Oriented x 3. Sensory grossly within normal limits. Normal speech. Procedures s/p right femur IMN s/p exfix left elbow s/p ORIF left patella right patella fx Medications and IVs Current Medications Medications (Trade) Dose Ordered Sig/Jonathan Route Start Time Stop Time Status Last Admin (Ativan) 1 mg Q6H PRN PO 07/25/16 20:30 07/29/16 21:48 (Ativan Inj) 1 mg Q6H PRN IM 07/25/16 20:30 (Tylenol) 650 mg Q4H PRN PO 07/25/16 20:30 07/28/16 06:12 (Milk Of Magnesia Liq) 30 ml DAILY PRN PO 07/25/16 20:30 08/20/16 21:29 (Chloraseptic Alexandre) 1 lozenge Q4HR PRN BUCCAL 07/26/16 11:15 08/02/16 08:55 (Protonix) 40 mg DAILY PO 07/26/16 11:15 09/01/16 09:00 (Xarelto) 10 mg DAILY PO 07/26/16 11:15 09/01/16 09:00 ([place] Carbonate) 600 mg Q12HR PO 07/28/16 12:00 09/01/16 09:00 (Susan 7.5-325 Mg) 1 tab Q6H PRN PO 07/28/16 12:30 08/22/16 07:57 (Geodon) 80 mg BID@09,18 PO 08/03/16 18:00 09/01/16 09:00 (Colace) 100 mg BID PRN PO 08/04/16 05:15 (Mary-Colace) 2 tab BID PO 08/04/16 09:00 09/01/16 09:00 (SEROquel) 300 mg HS PO 08/07/16 21:00 08/31/16 20:53 (Synthroid) 200 mcg DAILY@0600 PO 08/18/16 06:00 09/01/16 05:43 (Miralax) 17 gm DAILY PO 08/19/16 17:00 09/01/16 09:00 (Lactulose Liq) 30 ml DAILY PO 09/01/16 09:00 09/01/16 09:00 A/P Problem List: (1) Schizoaffective disorder, bipolar type ICD Code: F25.0 Status: Acute (2) Femur fracture, right ICD Code: S72.91XA Status: Acute (3) Elbow fracture ICD Code: S42.409A Status: Acute (4) Patella fracture ICD Code: S82.009A Status: Acute (5) T12 vertebral fracture ICD Code: S22.089A Status: Acute (6) Hypothyroidism ICD Code: E03.9 Status: Chronic Assessment and Plan This a 50-year-old gentleman with a past medical history which includes hypothyroidism, bipolar and schizophrenia. Patient is status post trauma alert on 07/12/2016 secondary to suicide attempt patient jumped [place] a bridge [place] railroad tracks. Patient sustained multiple fractures has been taken to the OR initially was in intensive care unit and intubated for airway protection as well as pain management. Patient was extubated 07/13/2016. Bipolar, schizophrenia - managed by psychiatry team Multiple surgical interventions including: Patient received 4 units PRBCs, 1 FFP and platelets while in the OR. s/p right femur IMN s/p exfix left elbow s/p ORIF left patella right patella fx nonop pelvic fxs Latest surgical intervention- Status post Left elbow ex fix Per Ortho, nonoperative management of right patella and pelvic fractures. Patient will maintain nonweightbearing on left upper extremity/bilateral lower extremity with daily dressing changes to the right femur, left knee, pinned care twice a day of left elbow. Patient will also continue to follow-up with Dr. Gentile if discharged home. - Xarelto 10 mg daily - Continue Physical therapy/occupational therapy - Physical therapy recommends specialty bed auto rolling. Pressure relief. - Air mattress bed with altered rolling - Pain management [place]'s 7.5/325 mg - May transfer to rehabilitation when ready. Consulted rehabilitation medicine for further management, awaiting for orthopedic new orders for weightbearing status. - Continue wound care as per Ortho recommendation. - TLSO brace ordered per recommendation. Continue to encourage OOB sitting up. - As per ortho, Bilateral patella fractures continue knee immobilizers, but now begin passive range of motion from 0-45, cont NWB BLE and LUE Hypothyroidism - continue levothyroxine TSH level 26.4 T4 0.91 Increase levothyroxine 200 mg daily- recommend patient have recheck in approximately 8 weeks Abdominal pain, resolved Constipation- Continue pericolace twice a day and prn. MiraLAX and Lactulose daily. Improving but now no BM x 2 days. - continue with bowel regimen - monitor for BM UTI - Cipro completed 08/16/59. Denies dysuria, hematuria. Afebrile. Sinus tachycardia. Improving DVT Prop Xarelto GI Prop Protonix Discuss with patient and nursing Discussed with Dr. Pedro Problem Qualifiers (1) Femur fracture, right: (2) Elbow fracture: (3) T12 vertebral fracture: Mel Lai Sep 01, 2016 10:42
[2016-09-01] MEDS ORDERED: PADIMATE (CHAPSTICK) 4.5 GM TUBE TOP ONE (13:00)
--- NOTE | 2016-09-01 14:17 | HHI.PYPN ---
Subjective Remarks Patient was seen today for psychiatric reevaluation along with long term care social worker [place], nurse in charge Saurav and also therapist Mr Campuzano, patient was previously widely discussed in treatment team, on evaluation patient is seen calm, cooperative, pleasant, communicative, he explains that he feels much better, ready to continue his medical treatment, to continue his follow-up in the community once discharged, wanting to get better and continue with his life. He denies suicidal or homicidal ideation, he denies visual and auditory hallucinations, patient has been fully compliant and responsive to current psychotropic regimen, no side effects reported. Review of Systems Other No somatic complaints Objective Alert: Yes [place]: Person, Place (at least), Date, Situation Mood: Calm Affect: Euthymic, Blunted Memory Intact: Immediate, Recent, Remote, Comment (not formally assessed today) Hallucinations: Other (Denies AVH) Delusions: No Delusion Type: Other (No delusions) Suicidal: Ideation (Denies SI) Homicidal: Ideation (No HI) Insight/Judgement good Vitals/IOs Vital Signs Date Time Temp Pulse Resp B/P Pulse Ox O2 Delivery O2 Flow Rate FiO2 09/01/16 06:09 97.5 98 20 103/64 95 Intake and Output 08/31/16 08/31/16 09/01/16 08:00 16:00 00:00 Intake Total 500 ml 720 ml 840 ml Output Total 950 ml 2400 ml Balance 500 ml -230 ml -1560 ml Assessment & Plan Problem List: (1) Schizoaffective disorder, bipolar type ICD Code: F25.0 Assessment & Plan Estimated LOS: days Justification for Cont. Inpt. At this point psychiatric being is working in the coordination of a safe discharge. Request HC Surrog/Guard Advoc?: No Dariel Sanford MD Sep 01, 2016 14:17
[2016-09-01 18:51] VITALS: BP 105/64; PULSE 97; RESP 17; TEMP 97.4; O2SAT 95
[2016-09-01] MEDS: QUEtiapine FUMARATE 300 MG TAB PO SCH (20:25)
[2016-09-02] MEDS: LEVOTHYROXINE SODIUM 200 MCG TAB PO SCH (05:35)
[2016-09-02 05:39] VITALS: BP 108/66; PULSE 91; RESP 15; TEMP 97.4; O2SAT 96
[2016-09-02] MEDS: LACTULOSE SYRUP 20 GM/30 ML CUP PO SCH (09:00)
[2016-09-02] MEDS: LITHIUM CARBONATE 300 MG CAP PO SCH ×2 (09:00→22:13)
[2016-09-02] MEDS: ZIPRASIDONE HCL 40 MG CAP PO SCH ×2 (09:00→18:00)
[2016-09-02] MEDS: POLYETHYLENE GLYCOL 17 GM PKG PO SCH (09:00)
[2016-09-02] MEDS: RIVAROXABAN 10 MG TAB PO SCH (09:00)
[2016-09-02] MEDS: PANTOPRAZOLE SOD 40 MG DELAYED RELEASE TAB PO SCH (09:00)
[2016-09-02] MEDS: DOCUSATE SODIUM 50 MG/SENNA 8.6 MG TAB PO SCH ×2 (09:00→22:12)
--- NOTE | 2016-09-02 10:03 | HHI.PYPN ---
Subjective Remarks Patient was seen today for psychiatric reevaluation along with director of social work [place] and nurse in charge Suarav Allen, patient was found calm and cooperative, eating his breakfast, communicative, with a full range affect, denies depression , denies suicidal or homicidal ideation, denies anxiety, denies perceptual disturbances, ideas of reference, denies thought control, he expresses motivation to continue his medical and psychiatric care in outpatient basis, is able to share plans for the future. Patient is fully oriented 3, fully compliant with medications, no significant medication side effects. Orthopedic department was consulted yesterday for further recommendations regarding post surgical care and follow-ups. Review of Systems Other No somatic complaints Objective Alert: Yes [place]: Person, Place (at least), Date, Situation Mood: Calm Affect: Euthymic, Blunted Memory Intact: Immediate, Recent, Remote, Comment (not formally assessed today) Hallucinations: Other (Denies AVH) Delusions: No Delusion Type: Other (No delusions) Suicidal: Ideation (Denies SI) Homicidal: Ideation (No HI) Insight/Judgement Good Vitals/IOs Vital Signs Date Time Temp Pulse Resp B/P Pulse Ox O2 Delivery O2 Flow Rate FiO2 09/02/16 05:39 97.4 91 15 108/66 96 Intake and Output 09/01/16 09/01/16 09/02/16 08:00 16:00 00:00 Intake Total 240 ml 480 ml Output Total 1000 ml Balance -760 ml 480 ml Assessment & Plan Problem List: (1) Schizoaffective disorder, bipolar type Assessment & Plan: Continue current psychotropic regimen, reconsult orthopedic for further recommendations and discharge plan. ICD Code: F25.0 Assessment & Plan Estimated LOS: days Justification for Cont. Inpt. Working in a safe discharge plan Request HC Surrog/Guard Advoc?: No Dariel Sanford MD Sep 02, 2016 10:03
[2016-09-02 12:30] VITALS: BP 122/59; PULSE 104; RESP 19; TEMP 97.2; O2SAT 96
--- NOTE | 2016-09-02 13:49 | HHI.PR ---
Subjective Remarks Follow-up visit multiple fractures, tachycardia, constipation. Patient reports he is doing well. Continues to have constipation issues but had a bowel movement yesterday. Denies pain and discomfort. Denies SOB/ dyspnea. Denies chest pain, palpitations, headaches, dizziness. Denies fevers, chills, n/v/d. Objective Vitals Vital Signs Date Time Temp Pulse Resp B/P Pulse Ox O2 Delivery O2 Flow Rate FiO2 09/02/16 12:30 97.2 104 19 122/59 96 09/02/16 05:39 97.4 91 15 108/66 96 09/01/16 18:51 97.4 97 17 105/64 95 I/O 09/01/16 09/01/16 09/01/16 09/02/16 09/02/16 09/02/16 07:00 15:00 23:00 07:00 15:00 23:00 Intake Total 240 ml 480 ml 300 ml Output Total 1000 ml Balance -760 ml 480 ml 300 ml Intake Oral 240 ml 480 ml 300 ml Output Urine Total 1000 ml # Voids 1 2 # Bowel Movements 2 Result Diagram: 08/30/16 0955 08/30/16 0955 Imaging Last Impressions Abdomen X-Ray 08/30/16 0000 Signed Impressions: Service Date/Time: Tuesday, August 30, 2016 09:04 - CONCLUSION: Moderate amount of stool again seen throughout the colon. Bravo Anton MD Pelvis X-Ray 08/22/16 0000 Signed Impressions: Service Date/Time: Monday, August 22, 2016 08:53 - CONCLUSION: 1. Stable appearance of the left pubic rami fractures. 2. Stable postsurgical changes involving the right femur. Meño Castillo MD Knee X-Ray 08/22/16 0000 Signed Impressions: Service Date/Time: Monday, August 22, 2016 08:52 - CONCLUSION: Stable appearance of the fractures. Meño Castillo MD Elbow X-Ray 08/22/16 0000 Signed Impressions: Service Date/Time: Monday, August 22, 2016 08:57 - CONCLUSION: Stable appearance. Meño Castillo MD Wrist X-Ray 08/04/16 0000 Signed Impressions: Service Date/Time: Thursday, August 04, 2016 07:59 - CONCLUSION: Non- displaced fracture involving the distal radius and radiocarpal joint. Julius Barillas MD FACR Femur X-Ray 07/29/16 0000 Signed Impressions: Service Date/Time: Friday, July 29, 2016 10:19 - CONCLUSION: Stable examination of the right femur in this patient post recent right femur ORIF for treatment of a intertrochanteric fracture in distal femoral diaphysis fracture. There is also a comminuted patella fracture present. Moses Buenrostro MD Objective Remarks GENERAL: This is a well-nourished, well-developed patient, in no apparent distress. SKIN: No rashes, ecchymoses or lesions. Cool and dry. HEAD: Atraumatic. Normocephalic. No temporal or scalp tenderness. EYES: Pupils equal round and reactive. Extraocular motions intact. No scleral icterus. No injection or drainage. ENT: Nose without bleeding. Throat without erythema. Uvula midline. Airway patent. NECK: Trachea midline. No JVD or lymphadenopathy. Supple, nontender, no meningeal signs. CARDIOVASCULAR: Regular rate and rhythm without murmurs, gallops, or rubs. RESPIRATORY: Diminished bases. No wheezes, rales, or rhonchi. GASTROINTESTINAL: Abdomen soft, non-tender, nondistended. No hepato-splenomegaly , or palpable masses. No guarding. MUSCULOSKELETAL: Extremities without clubbing, cyanosis, bilateral lower extremity trace edema. Able to wiggle bilateral toes and move bilateral foot weakly. Left upper extremity with ex-fix. Right hip incision site CDI, small mid opening, no drainage, no erythema. NEUROLOGICAL: Awake and alert. Flat affect. - Improved smiling today. Oriented to self, and place. Sensory grossly within normal limits. Normal speech. Procedures s/p right femur IMN s/p exfix left elbow s/p ORIF left patella right patella fx A/P Problem List: (1) Schizoaffective disorder, bipolar type ICD Code: F25.0 Status: Acute (2) Femur fracture, right ICD Code: S72.91XA Status: Acute (3) Elbow fracture ICD Code: S42.409A Status: Acute (4) Patella fracture ICD Code: S82.009A Status: Acute (5) T12 vertebral fracture ICD Code: S22.089A Status: Acute (6) Hypothyroidism ICD Code: E03.9 Status: Chronic Assessment and Plan This a 50-year-old gentleman with a past medical history which includes hypothyroidism, bipolar and schizophrenia. Patient is status post trauma alert on 07/12/2016 secondary to suicide attempt patient jumped off a bridge onto railroad tracks. Patient sustained multiple fractures has been taken to the OR initially was in intensive care unit and intubated for airway protection as well as pain management. Patient was extubated 07/13/2016. Bipolar, schizophrenia - managed by psychiatry team Multiple surgical interventions including: Patient received 4 units PRBCs, 1 FFP and platelets while in the OR. s/p right femur IMN s/p exfix left elbow s/p ORIF left patella right patella fx nonop pelvic fxs Latest surgical intervention- Status post Left elbow ex fix Per Ortho, nonoperative management of right patella and pelvic fractures. Patient will maintain nonweightbearing on left upper extremity/bilateral lower extremity with daily dressing changes to the right femur, left knee, pinned care twice a day of left elbow. Patient will also continue to follow-up with Dr. Gentile if discharged home. - Xarelto 10 mg daily - Continue Physical therapy/occupational therapy - Physical therapy recommends specialty bed auto rolling. Pressure relief. - Air mattress bed with altered rolling - Pain management [place]'s 7.5/325 mg - May transfer to rehabilitation when ready. Consulted rehabilitation medicine for further management, awaiting for orthopedic new orders for weightbearing status. - Continue wound care as per Ortho recommendation. - TLSO brace ordered per recommendation. Continue to encourage OOB sitting up. - As per ortho, Bilateral patella fractures continue knee immobilizers, but now begin passive range of motion from 0-45, cont NWB BLE and LUE - Participates in physical therapy. Hypothyroidism - continue levothyroxine TSH level 26.4 T4 0.91 Increase levothyroxine 200 mg daily- recommend patient have recheck in approximately 8 weeks Constipation- Continue pericolace twice a day and prn. MiraLAX daily. - Lactulose daily UTI - Cipro completed 08/16/59. Denies dysuria, hematuria. Afebrile. Sinus tachycardia - improving. DVT Prop Xarelto GI Prop Protonix Discuss with patient and nursing Written by Sera Jameson, acting as scribe for Dr. Pedro on 09/02/16 at 13: 55. Attending Statement The documentation accurately reflects the work performed [id number] by me on at 13:55. Problem Qualifiers (1) Femur fracture, right: (2) Elbow fracture: (3) T12 vertebral fracture: Sera Brandon Sep 02, 2016 13:49 Joel Basurto MD Sep 04, 2016 16:33
[2016-09-02 18:37] VITALS: BP 111/66; PULSE 99; RESP 16; TEMP 97.7; O2SAT 96
[2016-09-02] MEDS: QUEtiapine FUMARATE 300 MG TAB PO SCH (22:12)
[2016-09-03 05:53] VITALS: BP 108/65; PULSE 88; RESP 15; TEMP 97.4; O2SAT 97
[2016-09-03] MEDS: LEVOTHYROXINE SODIUM 200 MCG TAB PO SCH (06:33)
[2016-09-03] MEDS: DOCUSATE SODIUM 50 MG/SENNA 8.6 MG TAB PO SCH ×2 (09:00→21:00)
[2016-09-03] MEDS: POLYETHYLENE GLYCOL 17 GM PKG PO SCH (09:00)
[2016-09-03] MEDS: LITHIUM CARBONATE 300 MG CAP PO SCH ×2 (09:00→22:21)
[2016-09-03] MEDS: PANTOPRAZOLE SOD 40 MG DELAYED RELEASE TAB PO SCH (09:00)
[2016-09-03] MEDS: LACTULOSE SYRUP 20 GM/30 ML CUP PO SCH (09:00)
[2016-09-03] MEDS: RIVAROXABAN 10 MG TAB PO SCH (09:00)
[2016-09-03] MEDS: ZIPRASIDONE HCL 40 MG CAP PO SCH ×2 (09:00→18:00)
--- NOTE | 2016-09-03 09:31 | HHI.PYPN ---
Subjective Remarks Patient seen today for psychiatric evaluation along with nurse in charge Saurav, patient is found in his bed without any objective or subjective symptomatology of depression, is logical, coherent, relevant, no evidence of thought blocking or speech latency at this moment. Patient reports good motivation to be discharged and continue with his next level of physical and psychiatric. He denies suicidal or homicidal ideation, he denies visual and auditory hallucinations. Patient is fully oriented 3, fully compliant with medications. Review of Systems Other No somatic complaint Objective Alert: Yes [place]: Person, Place (at least), Date, Situation Mood: Calm Affect: Euthymic, Blunted Memory Intact: Immediate, Recent, Remote, Comment (not formally assessed today) Hallucinations: Other (Denies AVH) Delusions: No Delusion Type: Other (No delusions) Suicidal: Ideation (Denies SI) Homicidal: Ideation (No HI) Insight/Judgement good Vitals/IOs Vital Signs Date Time Temp Pulse Resp B/P Pulse Ox O2 Delivery O2 Flow Rate FiO2 09/03/16 05:53 97.4 88 15 108/65 97 Intake and Output 09/02/16 09/02/16 09/03/16 08:00 16:00 00:00 Intake Total 300 ml 600 ml 600 ml Output Total 800 ml Balance 300 ml -200 ml 600 ml Assessment & Plan Problem List: (1) Schizoaffective disorder, bipolar type ICD Code: F25.0 Assessment & Plan Estimated LOS: days Justification for Cont. Inpt. At this moment the patient is psychiatrically stable, ready to be discharged either home with appropriate care or back to orthopedic care/floor. Just waiting for Ortho to recommendations. Consult to order was placed on 09/01/2016. Request HC Surrog/Guard Advoc?: Dariel Newsome MD Sep 03, 2016 09:31
--- NOTE | 2016-09-03 10:58 | RADRPT ---
EXAM DATE/TIME: 09/03/2016 09:42 [facility] COMPARISON: KNEE RIGHT LTD (1 OR 2 VWS), August 22, 2016, 8:52. INDICATIONS : Evaluate right femur fracture. MEDICAL HISTORY : None. SURGICAL HISTORY : Right femur gregg. ENCOUNTER: Subsequent ACUITY: 1 month PAIN SCORE: 5/10 LOCATION: Right Femur FINDINGS: Two view examination of the right femur demonstrates intramedullary gregg with intertrochanteric fractu re again seen. Fracture along the mid to distal shaft again seen and unchanged. Fracture also along t he distal femur in the region of lateral femoral condyle. Patellar fracture also unchanged. CONCLUSION: Intramedullary gregg unchanged. Multiple fractures in the intertrochanteric region, mid to distal shaft and distal left femur and patella again noted. No change in alignment. Tyshawn Rios MD on September 03, 2016 at 10:49 Board Certified Radiologist. This report was verified electronically.
--- NOTE | 2016-09-03 11:01 | RADRPT ---
EXAM DATE/TIME: 09/03/2016 09:48 [facility] COMPARISON: KNEE LEFT LTD (1 OR 2VWS), July 29, 2016, 10:14. INDICATIONS : Evaluate left knee fracture.. MEDICAL HISTORY : None. SURGICAL HISTORY : Patella fusion ENCOUNTER: Subsequent ACUITY: 1 month PAIN SCORE: 5/10 LOCATION: Left Knee FINDINGS: Two view examination of the left knee demonstrates a patella fracture line still seen. 3 screws in th e patella. Proximal fibular fracture also unchanged. There are signs of healing mainly in the fibular fracture with periosteal reaction. No new fracture. CONCLUSION: 1. Patellar fracture again noted and unchanged. 2. Healing fibular fracture. Tyshawn Rios MD on September 03, 2016 at 10:57 Board Certified Radiologist. This report was verified electronically.
--- NOTE | 2016-09-03 11:08 | RADRPT ---
EXAM DATE/TIME: 09/03/2016 09:54 [facility] COMPARISON: KNEE RIGHT LTD (1 OR 2 VWS), August 22, 2016, 8:52. INDICATIONS : Evaluate right patella fracture. MEDICAL HISTORY : None. SURGICAL HISTORY : None. ENCOUNTER: Subsequent ACUITY: 1 month PAIN SCORE: 5/10 LOCATION: Right Knee FINDINGS: Two view examination of the right knee demonstrates patellar fracture which appears stable. There is also distal femoral fracture mainly involving the lateral femoral condyle. No new fractures. Intramed ullary gregg seen in distal femur. CONCLUSION: Fractures of the patella and distal femur are unchanged. Tyshawn Rios MD on September 03, 2016 at 11:04 Board Certified Radiologist. This report was verified electronically.
--- NOTE | 2016-09-03 11:10 | RADRPT ---
EXAM DATE/TIME: 09/03/2016 09:58 [place] Corrected on: September 03, 2016; added missing exam form information. [facility] COMPARISON: No previous studies available for comparison. INDICATIONS : Evaluate left wrist fracture. MEDICAL HISTORY : None. SURGICAL HISTORY : None. ENCOUNTER: Subsequent ACUITY: 1 month PAIN SCORE: 4/10 LOCATION: Left Wrist FINDINGS: Two view examination of the left wrist demonstrates no soft tissue swelling, dislocation, or fracture . The joint spaces are maintained. Bony mineralization is normal. CONCLUSION: No acute fracture. Tyshawn Rios MD on September 03, 2016 at 11:06 Board Certified Radiologist. This report was verified electronically. DR Mccord on September 03, 2016 at 11:45 Board Certified Radiologist. This report was verified electronically.
--- NOTE | 2016-09-03 11:13 | RADRPT ---
EXAM DATE/TIME: 09/03/2016 10:04 [facility] COMPARISON: ELBOW LEFT LIMITED (AP & LAT), July 29, 2016, 10:37. INDICATIONS : Evaluate left elbow fracture. MEDICAL HISTORY : None. SURGICAL HISTORY : External Ex-fix left elbow. Radial head replacement. ENCOUNTER: Subsequent ACUITY: 1 month PAIN SCORE: 5/10 LOCATION: Left Elbow FINDINGS: Two view examination of the left elbow demonstrates external fixation device in place and unchanged. Radial head prosthesis noted. Calcified densities are seen along the lateral and radial collateral li gaments. There is also minimal lucency in the distal humerus likely nondisplaced fracture. CONCLUSION: 1. Radial head prosthesis. 2. External fixation device unchanged. 3. Lucency in the region of the lateral humeral condyle likely nondisplaced fracture but unchanged. Tyshawn Rios MD on September 03, 2016 at 11:09 Board Certified Radiologist. This report was verified electronically.
--- NOTE | 2016-09-03 17:04 | HHI.PR ---
Subjective Remarks Follow-up visit multiple fractures, tachycardia, constipation. Patient reports he is doing well. States he has bowel movement last night but unable to know if it is small or moderate amount. Denies pain and discomfort. Denies SOB/ dyspnea. Denies chest pain, palpitations, headaches, dizziness. Denies fevers, chills, n/v/d. Objective Vitals Vital Signs Date Time Temp Pulse Resp B/P Pulse Ox O2 Delivery O2 Flow Rate FiO2 09/03/16 05:53 97.4 88 15 108/65 97 09/02/16 18:37 97.7 99 16 111/66 96 I/O 09/02/16 09/02/16 09/02/16 09/03/16 09/03/16 09/03/16 07:00 15:00 23:00 07:00 15:00 23:00 Intake Total 300 ml 600 ml 600 ml 240 ml Output Total 800 ml Balance 300 ml -200 ml 600 ml 240 ml Intake Oral 300 ml 600 ml 600 ml 240 ml Output Urine Total 800 ml # Voids 2 1 3 1 # Bowel Movements 1 Result Diagram: 08/30/1655 08/30/16954 Imaging Last Impressions Wrist X-Ray 09/03/16 0000 Signed Impressions: Service Date/Time: Saturday, September 03, 2016 09:58 - CONCLUSION: No acute fracture. Tyshawn Rios MD Knee X-Ray 09/03/16 0000 Signed Impressions: Service Date/Time: Saturday, September 03, 2016 09:54 - CONCLUSION: Fractures of the patella and distal femur are unchanged. Tyshawn Rios MD Femur X-Ray 09/03/16 0000 Signed Impressions: Service Date/Time: Saturday, September 03, 2016 09:42 - CONCLUSION: Intramedullary gregg unchanged. Multiple fractures in the intertrochanteric region, mid to distal shaft and distal left femur and patella again noted. No change in alignment. Tyshawn Rios MD Elbow X-Ray 09/03/16 0000 Signed Impressions: Service Date/Time: Saturday, September 03, 2016 10:04 - CONCLUSION: 1. Radial head prosthesis. 2. External fixation device unchanged. 3. Lucency in the region of the lateral humeral condyle likely nondisplaced fracture but unchanged. Tyshawn Rios MD Abdomen X-Ray 08/30/16 0000 Signed Impressions: Service Date/Time: Tuesday, August 30, 2016 09:04 - CONCLUSION: Moderate amount of stool again seen throughout the colon. Bravo Anton MD Pelvis X-Ray 08/22/16 0000 Signed Impressions: Service Date/Time: Monday, August 22, 2016 08:53 - CONCLUSION: 1. Stable appearance of the left pubic rami fractures. 2. Stable postsurgical changes involving the right femur. Meño Castillo MD Objective Remarks GENERAL: This is a well-nourished, well-developed patient, in no apparent distress. SKIN: No rashes, ecchymoses or lesions. Cool and dry. HEAD: Atraumatic. Normocephalic. No temporal or scalp tenderness. EYES: Pupils equal round and reactive. Extraocular motions intact. No scleral icterus. No injection or drainage. ENT: Nose without bleeding. Throat without erythema. Uvula midline. Airway patent. NECK: Trachea midline. No JVD or lymphadenopathy. Supple, nontender, no meningeal signs. CARDIOVASCULAR: Regular rate and rhythm without murmurs, gallops, or rubs. RESPIRATORY: Diminished bases. No wheezes, rales, or rhonchi. GASTROINTESTINAL: Abdomen soft, non-tender, nondistended. No hepato-splenomegaly , or palpable masses. No guarding. MUSCULOSKELETAL: Extremities without clubbing, cyanosis, bilateral lower extremity trace edema. Able to wiggle bilateral toes and move bilateral foot weakly. Left upper extremity with ex-fix. Right hip incision site CDI, small mid opening, no drainage, no erythema. NEUROLOGICAL: Awake and alert. Flat affect. - Improved smiling today. Oriented to self, and place. Sensory grossly within normal limits. Normal speech. Procedures s/p right femur IMN s/p exfix left elbow s/p ORIF left patella right patella fx A/P Problem List: (1) Schizoaffective disorder, bipolar type ICD Code: F25.0 Status: Acute (2) Femur fracture, right ICD Code: S72.91XA Status: Acute (3) Elbow fracture ICD Code: S42.409A Status: Acute (4) Patella fracture ICD Code: S82.009A Status: Acute (5) T12 vertebral fracture ICD Code: S22.089A Status: Acute (6) Hypothyroidism ICD Code: E03.9 Status: Chronic Assessment and Plan This a 50-year-old gentleman with a past medical history which includes hypothyroidism, bipolar and schizophrenia. Patient is status post trauma alert on 07/12/2016 secondary to suicide attempt patient jumped off a bridge onto railroad tracks. Patient sustained multiple fractures has been taken to the OR initially was in intensive care unit and intubated for airway protection as well as pain management. Patient was extubated 07/13/2016. Bipolar, schizophrenia - managed by psychiatry team Multiple surgical interventions including: Patient received 4 units PRBCs, 1 FFP and platelets while in the OR. s/p right femur IMN s/p exfix left elbow s/p ORIF left patella right patella fx nonop pelvic fxs Latest surgical intervention- Status post Left elbow ex fix Per Ortho, nonoperative management of right patella and pelvic fractures. Patient will maintain nonweightbearing on left upper extremity/bilateral lower extremity with daily dressing changes to the right femur, left knee, pinned care twice a day of left elbow. Patient will also continue to follow-up with Dr. Gentile if discharged home. - Xarelto 10 mg daily - Continue Physical therapy/occupational therapy - Physical therapy recommends specialty bed auto rolling. Pressure relief. - Air mattress bed with altered rolling - Pain management [place]'s 7.5/325 mg - May transfer to rehabilitation when ready. Consulted rehabilitation medicine for further management, awaiting for orthopedic new orders for weightbearing status. - Continue wound care as per Ortho recommendation. - TLSO brace ordered per recommendation. Continue to encourage OOB sitting up. - As per ortho, Bilateral patella fractures continue knee immobilizers, but now begin passive range of motion from 0-45, cont NWB BLE and LUE - Participates in physical therapy. - Orthopedic continues to follow, repeat x-rays today Hypothyroidism - continue levothyroxine TSH level 26.4 T4 0.91 Increase levothyroxine 200 mg daily- recommend patient have recheck in approximately 8 weeks Constipation- Continue pericolace twice a day and prn. MiraLAX daily. - Lactulose daily UTI - Cipro completed 08/16/59. Denies dysuria, hematuria. Afebrile. Sinus tachycardia - improving. DVT Prop Xarelto GI Prop Protonix Discuss with patient and nursing, Dr. Pedro Problem Qualifiers (1) Femur fracture, right: (2) Elbow fracture: (3) T12 vertebral fracture: Sera Brandon Sep 03, 2016 17:04 Joel Basurto MD Sep 04, 2016 16:34
[2016-09-03 20:53] VITALS: BP 112/75; PULSE 95; RESP 16; TEMP 97.8; O2SAT 96
[2016-09-03] MEDS: QUEtiapine FUMARATE 300 MG TAB PO SCH (22:20)
[2016-09-04] MEDS: LEVOTHYROXINE SODIUM 200 MCG TAB PO SCH (05:44)
[2016-09-04 05:54] VITALS: BP 112/70; PULSE 99; RESP 16; TEMP 97.9; O2SAT 98
--- NOTE | 2016-09-04 07:27 | PD.ORT.PN ---
Subjective Subjective Remarks s/p right femur IMN s/p ORIF left patella s/p non op treatment right patella s/p ligamentous reconstruction with Exfix left elbow s/p non op pelvis fxs -patient states pain is well controlled. no complaints. Objective Vitals Vital Signs Date Time Temp Pulse Resp B/P Pulse Ox O2 Delivery O2 Flow Rate FiO2 09/04/16 05:54 97.9 99 16 112/70 98 09/03/16 20:53 97.8 95 16 112/75 96 I/O 09/03/16 09/03/16 09/03/16 09/04/16 09/04/16 09/04/16 07:00 15:00 23:00 07:00 15:00 23:00 Intake Total 240 ml 960 ml 240 ml Balance 240 ml 960 ml 240 ml Intake Oral 240 ml 960 ml 240 ml # Voids 1 2 1 Imaging Last 24 hours Impressions Pelvis X-Ray 08/22/16 0000 Signed Impressions: Service Date/Time: Monday, August 22, 2016 08:53 - CONCLUSION: 1. Stable appearance of the left pubic rami fractures. 2. Stable postsurgical changes involving the right femur. Meño Castillo MD Knee X-Ray 08/22/16 0000 Signed Impressions: Service Date/Time: Monday, August 22, 2016 08:52 - CONCLUSION: Stable appearance of the fractures. Meño Castillo MD Elbow X-Ray 08/22/16 0000 Signed Impressions: Service Date/Time: Monday, August 22, 2016 08:57 - CONCLUSION: Stable appearance. Meño Castillo MD Objective Remarks LUE: +elbow exfix. pin sites with some build up of escar. NVI distally beginning to develop contractures of fingers and wrist. incisions healing well. noticeable deformity at DRUJ. unsuccessful closed reduction at bedside LLE: incision and lacerations healing without sign of infection. +CKS. NVI RLE: +CKS. minimal swelling. NVI. incisions and lacerations healing without sign of infection.; Pelvis with mild tenderness with motion of hips Assessment & Plan Assessment and Plan 1) I&D with ORIF L open Patella fx, R long intramedullary femoral nail for intertroch and fem shaft fxs, I&D L Hand with closure of traumatic wound, I&D L elbow with application of ex-fix( [place])07/12/16 2) status post radial head replacement and complex repair of left elbow fracture dislocation with hinged external fixator([place]) 07/15/16 pin care twice a day with 1/2 peroxide and 1/2 saline Nonweightbearing left upper extremity Occupational therapy for ROM of fingers and PROM of elbow 3) Right patella fracture to be treated nonoperatively with knee immobilizer 4)Pelvic fractures --plan nonoperative treatment Bilateral patella fractures continue knee immobilizers, but now begin passive range of motion from 0-45 NWB BLE and L UE dvt prophylaxis med management psych management -patient has developed a dislocation of his left DRUJ of his wrist. unsuccessful reduction at bedside. will need operative management. will plan for surgery tomorrow to fix. will also plan to remove the exfix from elbow tomorrow -npo after MN -sign consents -hold any lovenox -will plan for DC to med/surg floor post surgery -spoke with nursing staff and instructed them to have Dr Del Rio speak with [facility] in regards to them accepting the patient onto their service. will need to be admitted to [facility] Sep 04, 2016 07:27
[2016-09-04] MEDS: LACTULOSE SYRUP 20 GM/30 ML CUP PO SCH (08:19)
[2016-09-04] MEDS: ZIPRASIDONE HCL 40 MG CAP PO SCH ×2 (08:19→17:06)
[2016-09-04] MEDS: POLYETHYLENE GLYCOL 17 GM PKG PO SCH (08:20)
[2016-09-04] MEDS: PANTOPRAZOLE SOD 40 MG DELAYED RELEASE TAB PO SCH (08:20)
[2016-09-04] MEDS: LITHIUM CARBONATE 300 MG CAP PO SCH ×2 (08:20→21:32)
[2016-09-04] MEDS: DOCUSATE SODIUM 50 MG/SENNA 8.6 MG TAB PO SCH ×2 (09:00→21:00)
--- NOTE | 2016-09-04 12:23 | HHI.PYPN ---
Subjective Remarks Patient seen for psychiatric reevaluation today, patient continues to show a significant response to psychotropics and psychotherapy, reports a good mood, good appetite, good sleep, good level of energy, denies depressive symptoms, denies anhedonia, denies hopelessness, denies helplessness, he denies suicidal or homicidal ideation. He denies visual and auditory hallucinations. No ideas of reference, thought control, paranoia or delusions elicited during this evaluation. Patient has been medication compliant, no significant side effects , oriented 3. He reports his motivation to go back to the medical floor, have surgical extraction of his external fixator and move forward with his treatment. Review of Systems Other No significant side effects Objective Alert: Yes [place]: Person, Place (at least), Date, Situation Mood: Calm Affect: Euthymic, Blunted Memory Intact: Immediate, Recent, Remote, Comment (not formally assessed today) Hallucinations: Other (Denies AVH) Delusions: No Delusion Type: Other (No delusions) Suicidal: Ideation (Denies SI) Homicidal: Ideation (No HI) Insight/Judgement Good Vitals/IOs Vital Signs Date Time Temp Pulse Resp B/P Pulse Ox O2 Delivery O2 Flow Rate FiO2 09/04/16 05:54 97.9 99 16 112/70 98 Intake and Output 09/03/16 09/03/16 09/04/16 08:00 16:00 00:00 Intake Total 240 ml 960 ml Balance 240 ml 960 ml Assessment & Plan Problem List: (1) Schizoaffective disorder, bipolar type Assessment & Plan: Patient will be transferred tomorrow to the medical floor for surgical extraction of external fixator. Please continue Geodon 80 mg twice a day, lithium 600 g twice a day, Seroquel 200 mg at bedtime. Consult psychiatry for follow-up once patient is in the medical floor. ICD Code: F25.0 Assessment & Plan Estimated LOS: days Justification for Cont. Inpt. Patient is now psychiatrically stable to be transferred tomorrow to medical floor and have his surgical procedure. Request HC Surrog/Guard Advoc?: No Dariel Sanford MD Sep 04, 2016 12:20
--- NOTE | 2016-09-04 16:38 | HHI.PR ---
Subjective Remarks Pain is controlled denies cp/sob no diarrhea denies fevers/chills Objective Vitals Vital Signs Date Time Temp Pulse Resp B/P Pulse Ox O2 Delivery O2 Flow Rate FiO2 09/04/16 05:54 97.9 99 16 112/70 98 09/03/16 20:53 97.8 95 16 112/75 96 I/O 09/03/16 09/03/16 09/03/16 09/04/16 09/04/16 09/04/16 07:00 15:00 23:00 07:00 15:00 23:00 Intake Total 240 ml 960 ml 240 ml 600 ml Balance 240 ml 960 ml 240 ml 600 ml Intake Oral 240 ml 960 ml 240 ml 600 ml # Voids 1 2 1 Imaging Last Impressions Wrist X-Ray 09/03/16 0000 Signed Impressions: Service Date/Time: Saturday, September 03, 2016 09:58 - CONCLUSION: No acute fracture. Tyshawn Rios MD Knee X-Ray 09/03/16 0000 Signed Impressions: Service Date/Time: Saturday, September 03, 2016 09:54 - CONCLUSION: Fractures of the patella and distal femur are unchanged. Tyshawn Rios MD Femur X-Ray 09/03/16 0000 Signed Impressions: Service Date/Time: Saturday, September 03, 2016 09:42 - CONCLUSION: Intramedullary gregg unchanged. Multiple fractures in the intertrochanteric region, mid to distal shaft and distal left femur and patella again noted. No change in alignment. Tyshawn Rios MD Elbow X-Ray 09/03/16 0000 Signed Impressions: Service Date/Time: Saturday, September 03, 2016 10:04 - CONCLUSION: 1. Radial head prosthesis. 2. External fixation device unchanged. 3. Lucency in the region of the lateral humeral condyle likely nondisplaced fracture but unchanged. Tyshawn Rios MD Abdomen X-Ray 08/30/16 0000 Signed Impressions: Service Date/Time: Tuesday, August 30, 2016 09:04 - CONCLUSION: Moderate amount of stool again seen throughout the colon. Bravo Anton MD Pelvis X-Ray 08/22/16 0000 Signed Impressions: Service Date/Time: Monday, August 22, 2016 08:53 - CONCLUSION: 1. Stable appearance of the left pubic rami fractures. 2. Stable postsurgical changes involving the right femur. Meño Castillo MD Objective Remarks GENERAL: This is a well-nourished, well-developed patient, in no apparent distress. SKIN: No rashes, ecchymoses or lesions. Cool and dry. HEAD: Atraumatic. Normocephalic. No temporal or scalp tenderness. EYES: Pupils equal round and reactive. Extraocular motions intact. No scleral icterus. No injection or drainage. ENT: Nose without bleeding. Throat without erythema. Uvula midline. Airway patent. NECK: Trachea midline. No JVD or lymphadenopathy. Supple, nontender, no meningeal signs. CARDIOVASCULAR: Regular rate and rhythm without murmurs, gallops, or rubs. RESPIRATORY: Diminished bases. No wheezes, rales, or rhonchi. GASTROINTESTINAL: Abdomen soft, non-tender, nondistended. No hepato-splenomegaly , or palpable masses. No guarding. MUSCULOSKELETAL: Extremities without clubbing, cyanosis, bilateral lower extremity trace edema. Able to wiggle bilateral toes and move bilateral foot weakly. Left upper extremity with ex-fix. Right hip incision site CDI, small mid opening, no drainage, no erythema. NEUROLOGICAL: Awake and alert. Flat affect. - Improved smiling today. Oriented to self, and place. Sensory grossly within normal limits. Normal speech. Procedures s/p right femur IMN s/p exfix left elbow s/p ORIF left patella right patella fx Medications and IVs Current Medications Medications (Trade) Dose Ordered Sig/Jonathan Route Start Time Stop Time Status Last Admin (Ativan) 1 mg Q6H PRN PO 07/25/16 20:30 07/29/16 21:48 (Ativan Inj) 1 mg Q6H PRN IM 07/25/16 20:30 (Tylenol) 650 mg Q4H PRN PO 07/25/16 20:30 07/28/16 06:12 (Milk Of Magnesia Liq) 30 ml DAILY PRN PO 07/25/16 20:30 08/20/16 21:29 (Chloraseptic Alexandre) 1 lozenge Q4HR PRN BUCCAL 07/26/16 11:15 08/02/16 08:55 (Protonix) 40 mg DAILY PO 07/26/16 11:15 09/04/16 08:20 ([place] Carbonate) 600 mg Q12HR PO 07/28/16 12:00 09/04/16 08:20 ([place] 7.5-325 Mg) 1 tab Q6H PRN PO 07/28/16 12:30 08/22/16 07:57 (Geodon) 80 mg BID@09,18 PO 08/03/16 18:00 09/04/16 17:06 (Colace) 100 mg BID PRN PO 08/04/16 05:15 (Mary-Colace) 2 tab BID PO 08/04/16 09:00 09/04/16 09:00 (SEROquel) 300 mg HS PO 08/07/16 21:00 09/03/16 22:20 (Synthroid) 200 mcg DAILY@0600 PO 08/18/16 06:00 09/04/16 05:44 (Miralax) 17 gm DAILY PO 08/19/16 17:00 09/04/16 08:20 (Lactulose Liq) 30 ml DAILY PO 09/01/16 09:00 09/04/16 08:19 A/P Problem List: (1) Schizoaffective disorder, bipolar type ICD Code: F25.0 Status: Resolved (2) Femur fracture, right ICD Code: S72.91XA Status: Acute (3) Elbow fracture ICD Code: S42.409A Status: Acute (4) Patella fracture ICD Code: S82.009A Status: Acute (5) T12 vertebral fracture ICD Code: S22.089A Status: Acute (6) Hypothyroidism ICD Code: E03.9 Status: Chronic Assessment and Plan This a 50-year-old gentleman with a past medical history which includes hypothyroidism, bipolar and schizophrenia. Patient is status post trauma alert on 07/12/2016 secondary to suicide attempt patient jumped off a bridge onto railroad tracks. Patient sustained multiple fractures has been taken to the OR initially was in intensive care unit and intubated for airway protection as well as pain management. Patient was extubated 07/13/2016. Bipolar, schizophrenia - managed by psychiatry team Multiple surgical interventions including: Patient received 4 units PRBCs, 1 FFP and platelets while in the OR. s/p right femur IMN s/p exfix left elbow s/p ORIF left patella right patella fx nonop pelvic fxs Latest surgical intervention- Status post Left elbow ex fix Per Ortho, nonoperative management of right patella and pelvic fractures. Patient will maintain nonweightbearing on left upper extremity/bilateral lower extremity with daily dressing changes to the right femur, left knee, pinned care twice a day of left elbow. Patient will also continue to follow-up with Dr. Gentile if discharged home. - Xarelto 10 mg daily - Continue Physical therapy/occupational therapy - Physical therapy recommends specialty bed auto rolling. Pressure relief. - Air mattress bed with altered rolling - Pain management Mal[place]'s 7.5/325 mg - May transfer to rehabilitation when ready. Consulted rehabilitation medicine for further management, awaiting for orthopedic new orders for weightbearing status. - Continue wound care as per Ortho recommendation. - TLSO brace ordered per recommendation. Continue to encourage OOB sitting up. - As per ortho, Bilateral patella fractures continue knee immobilizers, but now begin passive range of motion from 0-45, cont NWB BLE and LUE - Participates in physical therapy. - Orthopedic continues to follow, repeat x-rays today - 09/04/16 -patient has developed a dislocation of his left DRUJ of his wrist. unsuccessful reduction at bedside. will need operative management. will plan for surgery tomorrow to fix. will also plan to remove the exfix from elbow tomorrow - NPo after midnight. Hypothyroidism - continue levothyroxine TSH level 26.4 T4 0.91 Increase levothyroxine 200 mg daily- recommend patient have recheck in approximately 8 weeks Constipation- Continue pericolace twice a day and prn. MiraLAX daily. - Lactulose daily UTI - Cipro completed 08/16/59. Denies dysuria, hematuria. Afebrile. Sinus tachycardia - improving. DVT Prop Xarelto GI Prop Protonix Discharge Planning For Or tomorrow. Problem Qualifiers (1) Femur fracture, right: (2) Elbow fracture: (3) T12 vertebral fracture: Joel Basurto MD Sep 04, 2016 16:38
[2016-09-04 19:43] VITALS: BP 117/82; PULSE 109; RESP 16; TEMP 98.5; O2SAT 96
[2016-09-04] MEDS: QUEtiapine FUMARATE 300 MG TAB PO SCH (21:32)
[2016-09-05 05:46] VITALS: BP 112/62; PULSE 89; RESP 15; TEMP 97.9; O2SAT 96
[2016-09-05] MEDS: LEVOTHYROXINE SODIUM 200 MCG TAB PO SCH (06:28)
[2016-09-05 07:51] LABS: AUTOMATED NEUTROPHIL # 4.1 TH/MM3 (1.8-7.7); BASOPHIL # 0.1 TH/MM3 (0-0.2); BASOPHIL % 0.8 % (0.0-2.0); EOSINOPHIL # 0.3 TH/MM3 (0-0.4); EOSINOPHIL % 4.6 % (0.0-4.0); HEMATOCRIT 37.5 % (39.0-51.0); HEMO FLAGS DIFF FINAL; LYMPH % 21.1 % (9.0-44.0); LYMPHOCYTE # 1.3 TH/MM3 (1.0-4.8); MEAN CELL VOLUME 87.3 FL (80.0-100.0); MEAN CORPUSCULAR HEMOGLOBIN 29.3 PG (27.0-34.0); MEAN CORPUSCULAR HGB CONC 33.5 % (32.0-36.0); MONO % 7.8 % (0.0-8.0); NEUT % 65.7 % (16.0-70.0); PLATELET COUNT 192 TH/MM3 (150-450); WHITE BLOOD COUNT 6.2 TH/MM3 (4.0-11.0)
--- NOTE | 2016-09-05 07:52 | PD.ORT.PN ---
Subjective Subjective Remarks s/p right femur IMN s/p ORIF left patella s/p non op treatment right patella s/p ligamentous reconstruction with Exfix left elbow s/p non op pelvis fxs -patient states pain is well controlled. no complaints. Objective Vitals Vital Signs Date Time Temp Pulse Resp B/P Pulse Ox O2 Delivery O2 Flow Rate FiO2 09/05/16 05:46 97.9 89 15 112/62 96 09/04/16 19:43 98.5 109 16 117/82 96 I/O 09/04/16 09/04/16 09/04/16 09/05/16 09/05/16 09/05/16 07:00 15:00 23:00 07:00 15:00 23:00 Intake Total 240 ml 600 ml 480 ml 0 ml Output Total 900 ml Balance 240 ml 600 ml -420 ml 0 ml Intake Oral 240 ml 600 ml 480 ml 0 ml Output Urine Total 900 ml # Voids 1 1 1 # Bowel Movements 0 0 Imaging Last 24 hours Impressions Pelvis X-Ray 08/22/16 0000 Signed Impressions: Service Date/Time: Monday, August 22, 2016 08:53 - CONCLUSION: 1. Stable appearance of the left pubic rami fractures. 2. Stable postsurgical changes involving the right femur. Meño Castillo MD Knee X-Ray 08/22/16 0000 Signed Impressions: Service Date/Time: Monday, August 22, 2016 08:52 - CONCLUSION: Stable appearance of the fractures. Meño Castillo MD Elbow X-Ray 08/22/16 0000 Signed Impressions: Service Date/Time: Monday, August 22, 2016 08:57 - CONCLUSION: Stable appearance. Meño Castillo MD Objective Remarks LUE: +elbow exfix. pin sites with some build up of escar. NVI distally beginning to develop contractures of fingers and wrist. incisions healing well. noticeable deformity at DRUJ. unsuccessful closed reduction at bedside LLE: incision and lacerations healing without sign of infection. +CKS. NVI RLE: +CKS. minimal swelling. NVI. incisions and lacerations healing without sign of infection.; Pelvis with mild tenderness with motion of hips Assessment & Plan Assessment and Plan 1) I&D with ORIF L open Patella fx, R long intramedullary femoral nail for intertroch and fem shaft fxs, I&D L Hand with closure of traumatic wound, I&D L elbow with application of ex-fix( [place])07/12/16 2) status post radial head replacement and complex repair of left elbow fracture dislocation with hinged external fixator([place]) 07/15/16 pin care twice a day with 1/2 peroxide and 1/2 saline Nonweightbearing left upper extremity Occupational therapy for ROM of fingers and PROM of elbow 3) Right patella fracture to be treated nonoperatively with knee immobilizer 4)Pelvic fractures --plan nonoperative treatment Bilateral patella fractures continue knee immobilizers, but now begin passive range of motion from 0-45 NWB BLE and L UE dvt prophylaxis med management psych management -plan for surgery today -will be admitted to [facility] service post op and placed on med surg floor Omer Griffiths Sep 05, 2016 07:52
[2016-09-05 08:16] LABS: ALKALINE PHOSPHATASE 182 U/L (45-117); ALT (GPT) 22 U/L (12-78); ANION GAP 8 MEQ/L (5-15); AST (GOT) 9 U/L (15-37); BICARBONATE 29.2 MEQ/L (21.0-32.0); BLOOD UREA NITROGEN 14 MG/DL (7-18); CHLORIDE 104 MEQ/L (98-107); GLOMERULAR FILTRATION RATE 82 ML/MIN (>89); MAGNESIUM 2.1 MG/DL (1.5-2.5); POTASSIUM 3.9 MEQ/L (3.5-5.1); SODIUM (NA) 141 MEQ/L (136-145); TOTAL BILIRUBIN ADULT 0.6 MG/DL (0.2-1.0)
[2016-09-05] MEDS: LITHIUM CARBONATE 300 MG CAP PO SCH (08:32)
[2016-09-05] MEDS: PANTOPRAZOLE SOD 40 MG DELAYED RELEASE TAB PO SCH (08:33)
[2016-09-05] MEDS: ZIPRASIDONE HCL 40 MG CAP PO SCH (08:33)
[2016-09-05] MEDS: LACTULOSE SYRUP 20 GM/30 ML CUP PO SCH (08:33)
[2016-09-05] MEDS: DOCUSATE SODIUM 50 MG/SENNA 8.6 MG TAB PO SCH (08:33)
[2016-09-05] MEDS: POLYETHYLENE GLYCOL 17 GM PKG PO SCH (08:33)
--- NOTE | 2016-09-05 08:56 | HHI.PYPN ---
Subjective Remarks Patient found sleeping for psychiatric reevaluation, easily arousable and engageable in the conversation. Patient reports feeling much better, having a good and restful sleep, he says that he is kind of excited of having surgery today and and taking out his arm external fixator. Patient denies depressive symptoms, he denies anxiety, no manic symptoms observer, he denies perceptual disturbances, such as visual and auditory hallucinations, thought controlling, ideas of reference. He denies suicidal and homicidal ideation. He has visible good ego boundaries and contact with the reality. He is fully oriented 3, no gross cognitive impairment observed. He has been fully compliant with medications, without any significant side effect. Review of Systems Other No somatic complaint Objective Alert: Yes [place]: Person, Place (at least), Date, Situation Mood: Calm Affect: Euthymic, Blunted Memory Intact: Immediate, Recent, Remote, Comment (not formally assessed today) Hallucinations: Other (Denies AVH) Delusions: No Delusion Type: Other (No delusions) Suicidal: Ideation (Denies SI) Homicidal: Ideation (No HI) Insight/Judgement good Labs Test 09/05/16 07:20 White Blood Count 6.2 TH/MM3 Red Blood Count 4.30 MIL/MM3 Hemoglobin 12.6 GM/DL Hematocrit 37.5 % Mean Corpuscular Volume 87.3 FL Mean Corpuscular Hemoglobin 29.3 PG Mean Corpuscular Hemoglobin 33.5 % Concent Red Cell Distribution Width 15.0 % Platelet Count 192 TH/MM3 Mean Platelet Volume 8.7 FL Neutrophils (%) (Auto) 65.7 % Lymphocytes (%) (Auto) 21.1 % Monocytes (%) (Auto) 7.8 % Eosinophils (%) (Auto) 4.6 % Basophils (%) (Auto) 0.8 % Neutrophils # (Auto) 4.1 TH/MM3 Lymphocytes # (Auto) 1.3 TH/MM3 Monocytes # (Auto) 0.5 TH/MM3 Eosinophils # (Auto) 0.3 TH/MM3 Basophils # (Auto) 0.1 TH/MM3 CBC Comment DIFF FINAL Differential Comment Sodium Level 141 MEQ/L Potassium Level 3.9 MEQ/L Chloride Level 104 MEQ/L Carbon Dioxide Level 29.2 MEQ/L Anion Gap 8 MEQ/L Blood Urea Nitrogen 14 MG/DL Creatinine 1.00 MG/DL Estimat Glomerular Filtration 82 ML/MIN Rate Random Glucose 85 MG/DL Calcium Level 9.4 MG/DL Phosphorus Level 4.0 MG/DL Magnesium Level 2.1 MG/DL Total Bilirubin 0.6 MG/DL Aspartate Amino Transf 9 U/L (AST/SGOT) Alanine Aminotransferase 22 U/L (ALT/SGPT) Alkaline Phosphatase 182 U/L Total Protein 6.2 GM/DL Albumin 3.2 GM/DL Vitals/IOs Vital Signs Date Time Temp Pulse Resp B/P Pulse Ox O2 Delivery O2 Flow Rate FiO2 09/05/16 05:46 97.9 89 15 112/62 96 Intake and Output 09/04/16 09/04/16 09/05/16 08:00 16:00 00:00 Intake Total 240 ml 600 ml 480 ml Output Total 900 ml Balance 240 ml 600 ml -420 ml Assessment & Plan Problem List: (1) Schizoaffective disorder, bipolar type Assessment & Plan: Patient is now psychiatrically stable to be transferred to medical floor and to have external fixator extraction. Continue current psychotropic medications, lithium 600 mg twice a day, Geodon 80 po mg twice a day, Seroquel 200 mg at bedtime. Remember the Geodon should be given with at least 300 tee of food for a better absorption. Reconsult psychiatry for follow-up in the medical floor. ICD Code: F25.0 Assessment & Plan Estimated LOS: days Justification for Cont. Inpt. Patient is psychiatric stable to be transferred to medical floor. Request HC Surrog/Guard Advoc?: No Dariel Sanford MD Sep 05, 2016 08:56
[2016-09-05 12:48] VITALS: BP 103/58; PULSE 86; RESP 16; TEMP 97.8; O2SAT 96
--- NOTE | 2016-09-05 14:20 | HHI.PR ---
Subjective Remarks Follow-up visit multiple fractures, tachycardia, constipation. Patient reports he is doing well. States he has bowel movement yesterday. Denies pain and discomfort. Denies SOB/ dyspnea. Denies chest pain, palpitations, headaches, dizziness. Denies fevers, chills, n/v/d. Plan for orthopedic surgery today. Objective Vitals Vital Signs Date Time Temp Pulse Resp B/P Pulse Ox O2 Delivery O2 Flow Rate FiO2 09/05/16 12:48 97.8 86 16 103/58 96 09/05/16 05:46 97.9 89 15 112/62 96 09/04/16 19:43 98.5 109 16 117/82 96 I/O 09/04/16 09/04/16 09/04/16 09/05/16 09/05/16 09/05/16 07:00 15:00 23:00 07:00 15:00 23:00 Intake Total 240 ml 600 ml 480 ml 0 ml 0 ml Output Total 900 ml Balance 240 ml 600 ml -420 ml 0 ml 0 ml Intake Oral 240 ml 600 ml 480 ml 0 ml 0 ml Output Urine Total 900 ml # Voids 1 1 1 # Bowel Movements 0 0 Result Diagram: 09/05/16 0720 09/05/16 0720 Imaging Last Impressions Wrist X-Ray 09/03/16 0000 Signed Impressions: Service Date/Time: Saturday, September 03, 2016 09:58 - CONCLUSION: No acute fracture. Tyshawn Rios MD Knee X-Ray 09/03/16 0000 Signed Impressions: Service Date/Time: Saturday, September 03, 2016 09:54 - CONCLUSION: Fractures of the patella and distal femur are unchanged. Tyshawn Rios MD Femur X-Ray 09/03/16 0000 Signed Impressions: Service Date/Time: Saturday, September 03, 2016 09:42 - CONCLUSION: Intramedullary gregg unchanged. Multiple fractures in the intertrochanteric region, mid to distal shaft and distal left femur and patella again noted. No change in alignment. Tyshawn Rios MD Elbow X-Ray 09/03/16 0000 Signed Impressions: Service Date/Time: Saturday, September 03, 2016 10:04 - CONCLUSION: 1. Radial head prosthesis. 2. External fixation device unchanged. 3. Lucency in the region of the lateral humeral condyle likely nondisplaced fracture but unchanged. Tyshawn Rios MD Abdomen X-Ray 08/30/16 0000 Signed Impressions: Service Date/Time: Tuesday, August 30, 2016 09:04 - CONCLUSION: Moderate amount of stool again seen throughout the colon. Bravo Anton MD Pelvis X-Ray 08/22/16 0000 Signed Impressions: Service Date/Time: Monday, August 22, 2016 08:53 - CONCLUSION: 1. Stable appearance of the left pubic rami fractures. 2. Stable postsurgical changes involving the right femur. Meño Castillo MD Objective Remarks GENERAL: This is a well-nourished, well-developed patient, in no apparent distress. SKIN: No rashes, ecchymoses or lesions. Cool and dry. HEAD: Atraumatic. Normocephalic. No temporal or scalp tenderness. EYES: Pupils equal round and reactive. Extraocular motions intact. No scleral icterus. No injection or drainage. ENT: Nose without bleeding. Throat without erythema. Uvula midline. Airway patent. NECK: Trachea midline. No JVD or lymphadenopathy. Supple, nontender, no meningeal signs. CARDIOVASCULAR: Regular rate and rhythm without murmurs, gallops, or rubs. RESPIRATORY: Diminished bases. No wheezes, rales, or rhonchi. GASTROINTESTINAL: Abdomen soft, non-tender, nondistended. No hepato-splenomegaly , or palpable masses. No guarding. MUSCULOSKELETAL: Extremities without clubbing, cyanosis, bilateral lower extremity trace edema. Able to wiggle bilateral toes and move bilateral foot weakly. Left upper extremity with ex-fix. Right hip incision site CDI, small mid opening, no drainage, no erythema. NEUROLOGICAL: Awake and alert. Flat affect. - Improved smiling today. Oriented to self, and place. Sensory grossly within normal limits. Normal speech. Procedures s/p right femur IMN s/p exfix left elbow s/p ORIF left patella right patella fx A/P Problem List: (1) Schizoaffective disorder, bipolar type ICD Code: F25.0 Status: Resolved (2) Femur fracture, right ICD Code: S72.91XA Status: Acute (3) Elbow fracture ICD Code: S42.409A Status: Acute (4) Patella fracture ICD Code: S82.009A Status: Acute (5) T12 vertebral fracture ICD Code: S22.089A Status: Acute (6) Hypothyroidism ICD Code: E03.9 Status: Chronic Assessment and Plan This a 50-year-old gentleman with a past medical history which includes hypothyroidism, bipolar and schizophrenia. Patient is status post trauma alert on 07/12/2016 secondary to suicide attempt patient jumped off a bridge onto railroad tracks. Patient sustained multiple fractures has been taken to the OR initially was in intensive care unit and intubated for airway protection as well as pain management. Patient was extubated 07/13/2016. Bipolar, schizophrenia - managed by psychiatry team Multiple surgical interventions including: Patient received 4 units PRBCs, 1 FFP and platelets while in the OR. s/p right femur IMN s/p exfix left elbow s/p ORIF left patella right patella fx nonop pelvic fxs Latest surgical intervention- Status post Left elbow ex fix Per Ortho, nonoperative management of right patella and pelvic fractures. Patient will maintain nonweightbearing on left upper extremity/bilateral lower extremity with daily dressing changes to the right femur, left knee, pinned care twice a day of left elbow. Patient will also continue to follow-up with Dr. Gentile if discharged home. - Xarelto 10 mg daily - Continue Physical therapy/occupational therapy - Physical therapy recommends specialty bed auto rolling. Pressure relief. - Air mattress bed with altered rolling - Pain management [place]'s 7.5/325 mg - May transfer to rehabilitation when ready. Consulted rehabilitation medicine for further management, unable to accept inpatient rehabilitation would [place] secondary to weightbearing status very limited. - Continue wound care as per Ortho recommendation. - TLSO brace ordered per recommendation. Continue to encourage OOB sitting up. - As per ortho, Bilateral patella fractures continue knee immobilizers, begin passive range of motion from 0-45, cont NWB BLE and LUE - Patient for surgery today. Plan is to admit to hospitalist postop and will be in medical surgical unit for closer monitoring. Hypothyroidism - continue levothyroxine TSH level 26.4 T4 0.91 Increase levothyroxine 200 mg daily- recommend patient have recheck in approximately 8 weeks Constipation- Continue pericolace twice a day and prn. MiraLAX daily. - Lactulose daily Tachycardia - tachycardia most of the time occurs when patient abdomen is distended secondary to constipation. Heart rate within normal when patient is able to move his bowels. UTI - Cipro completed 08/16/59. Denies dysuria, hematuria. Afebrile. Resolved Sinus tachycardia - improving. DVT Prop Xarelto GI Prop Protonix Discuss with patient and nursing, Dr. Troy Problem Qualifiers (1) Femur fracture, right: (2) Elbow fracture: (3) T12 vertebral fracture: Sera Brandon Sep 05, 2016 2:19 pm Virgilio Troy DO Sep 05, 2016 5:43 pm
[2016-09-05] MEDS ORDERED: LACTATED RINGER'S 1000 ML INJ 1,000 ML IV SCH (15:33)
[2016-09-05] MEDS ORDERED: SUGAMMADEX SODIUM 200 MG/2 ML VIAL IV PUSH ONE ×2 (15:36)
[2016-09-05] MEDS ORDERED: MORPHINE SULFATE 4 MG/ML INJ IV PUSH PRN (15:45)
[2016-09-05] MEDS ORDERED: ACETAMINOPHEN/HYDROcodone 325 MG/10 MG TAB PO PRN (15:45)
[2016-09-05] MEDS ORDERED: SODIUM CHLORIDE 0.9% FLUSH 5 ML FLUSH IVF PRN (15:45)
[2016-09-05] MEDS ORDERED: Post-op Orders (for Pharmacy) MISC XX ONE (15:45)
[2016-09-05] MEDS ORDERED: diphenhydrAMINE HCL 25 MG CAP PO PRN (15:45)
[2016-09-05] MEDS ORDERED: ONDANSETRON HCL 4 MG/2 ML VIAL IVP PRN (15:45)
--- NOTE | 2016-09-05 16:07 | PD.OP ---
cc: Mil Hoyt MD Operative Report Date of Surgery: Sep 05, 2016 Preoperative Diagnosis: Left elbow fracture dislocation with retained external fixation Left distal radial ulnar joint dislocation Postoperative Diagnosis: Procedure: Removal of external fixation, manipulation of left elbow under anesthesia, closed reduction of distal radial ulnar joint with placement of long-arm cast Surgeon: Mil Hoyt Amphibian Crewmember(s): HCERELLE Rendon PA-C The surgical procedure was assisted by my physician dermatology physician assistant. My P.A. presence was necessary throughout this case for the manipulation and positioning of the surgical extremity. My P.A. was assisting me throughout the duration of this procedure. The skill set of a physician dermatology physician assistant was medically necessary to complete this procedure. During the surgical case the surgical dental assistant was working at the back table and the physician dermatology physician assistant was directly assisting me. Operation and Findings: Papo is well-known to me from previous injuries and surgeries. Informed consent was obtained preoperatively and operative site was marked. His breath operating room. He was given IV sedation and general anesthesia. Timeout procedure was performed. Procedure began with removal of external fixator. Clamps were loosened. Clamps and bars were now removed. Pins were now removed using a drill. Next was turned to move the place of the elbow under anesthesia. Initially elbow range of motion was from approximately 30 up to 80. The elbow was gently extended. I was able to achieve full extension to 0. Next the elbow was gently flexed. As able to achieve 120 of flexion. Fluoroscopy was used to confirm concentric elbow reduction. Next attention was turned to the distal radioulnar joint. The DRUJ was visualized under fluoroscopy. The patient had significant contraction of his forearm in pronation. The wrist was manipulated. I was able to achieve full supination. With the forearm supinated the distal radial ulnar joint was concentrically reduced. A long-arm cast was now placed with the forearm in a supinated position. Patient was awakened and transferred to recovery room in stable condition. Mil Hoyt MD Sep 05, 2016 16:07
--- NOTE | 2016-09-05 16:12 | PD.ORT.PN ---
Subjective Subjective Remarks s/p right femur IMN s/p ORIF left patella s/p non op treatment right patella s/p ligamentous reconstruction with Exfix left elbow s/p non op pelvis fxs s/p closed reduction left DRUJ -patient states pain is well controlled. no complaints. Objective Vitals Vital Signs Date Time Temp Pulse Resp B/P Pulse Ox O2 Delivery O2 Flow Rate FiO2 09/05/16 12:48 97.8 86 16 103/58 96 09/05/16 05:46 97.9 89 15 112/62 96 09/04/16 19:43 98.5 109 16 117/82 96 I/O 09/04/16 09/04/16 09/04/16 09/05/16 09/05/16 09/05/16 07:00 15:00 23:00 07:00 15:00 23:00 Intake Total 240 ml 600 ml 480 ml 0 ml 0 ml Output Total 900 ml 1000 ml Balance 240 ml 600 ml -420 ml 0 ml -1000 ml Intake Oral 240 ml 600 ml 480 ml 0 ml 0 ml Output Urine Total 900 ml 1000 ml # Voids 1 1 1 1 # Bowel Movements 0 0 0 Result Diagram: 09/05/16 0720 09/05/16 0720 Imaging Last 24 hours Impressions Pelvis X-Ray 08/22/16 0000 Signed Impressions: Service Date/Time: Monday, August 22, 2016 08:53 - CONCLUSION: 1. Stable appearance of the left pubic rami fractures. 2. Stable postsurgical changes involving the right femur. Meño Castillo MD Knee X-Ray 08/22/16 0000 Signed Impressions: Service Date/Time: Monday, August 22, 2016 08:52 - CONCLUSION: Stable appearance of the fractures. Meño Castillo MD Elbow X-Ray 08/22/16 0000 Signed Impressions: Service Date/Time: Monday, August 22, 2016 08:57 - CONCLUSION: Stable appearance. Meño Castillo MD Objective Remarks LUE: +elbow exfix. pin sites with some build up of escar. NVI distally beginning to develop contractures of fingers and wrist. incisions healing well. noticeable deformity at DRUJ. unsuccessful closed reduction at bedside LLE: incision and lacerations healing without sign of infection. +CKS. NVI RLE: +CKS. minimal swelling. NVI. incisions and lacerations healing without sign of infection.; Pelvis with mild tenderness with motion of hips Assessment & Plan Assessment and Plan 1) I&D with ORIF L open Patella fx, R long intramedullary femoral nail for intertroch and fem shaft fxs, I&D L Hand with closure of traumatic wound, I&D L elbow with application of ex-fix( [place])07/12/16 2) status post radial head replacement and complex repair of left elbow fracture dislocation with hinged external fixator(Seferino) 07/15/16 Nonweightbearing left upper extremity Occupational therapy for ROM of fingers 3) Right patella fracture to be treated nonoperatively with knee immobilizer 4)Pelvic fractures --plan nonoperative treatment 5) Closed reduction with casting and removal of exfix left elbow - 09/05/16 Bilateral patella fractures continue knee immobilizers, but now begin passive range of motion from 0-60 NWB BLE and L UE dvt prophylaxis med management psych management Omer Griffiths Sep 05, 2016 16:12
[2016-09-05] MEDS ORDERED: MORPHINE SULFATE 4 MG/ML INJ ONE (16:19)
[2016-09-05] MEDS ORDERED: fentaNYL CITRATE 250 MCG/5 ML AMP ONE (16:19)
[2016-09-05] MEDS ORDERED: *morphine SULFATE 8 MG/ML PERIprocedure ONLY ONE (16:26)
--- NOTE | 2016-09-05 17:09 | RADRPT ---
EXAM DATE/TIME: 09/05/2016 15:46 [facility] COMPARISON: ELBOW LEFT LIMITED (AP & LAT), September 03, 2016, 10:04. INDICATIONS : Removal of external fixator. MEDICAL HISTORY : None. SURGICAL HISTORY : Radial head replacement. ENCOUNTER: Initial ACUITY: 1 day PAIN SCORE: Non-responsive. LOCATION: Left elbow. FINDINGS: The external fixator has been removed. The alignment is anatomic. Radial head prosthesis is present CONCLUSION: 1. Postsurgical changes as above. Robson Ghotra MD on September 05, 2016 at 17:07 Board Certified Radiologist. This report was verified electronically.
--- NOTE | 2016-09-05 17:10 | RADRPT ---
EXAM DATE/TIME: 09/05/2016 15:46 [facility] COMPARISON: WRIST LEFT LIMITED (AP & LAT), September 03, 2016, 9:58. INDICATIONS : Closed reduction. MEDICAL HISTORY : None. SURGICAL HISTORY : None. ENCOUNTER: Initial ACUITY: 1 day PAIN SCORE: Non-responsive. LOCATION: Left wrist. FINDINGS: The alignment is anatomic. There is no evidence of acute fracture. Bony mineralization is normal. CONCLUSION: 1. Postsurgical changes as above. Robson Ghotra MD on September 05, 2016 at 17:08 Board Certified Radiologist. This report was verified electronically.
[2016-09-05] MEDS ORDERED: CALCIUM/VITAMIN D 250 MG/125 U TAB PO SCH (18:00)
[2016-09-05] MEDS ORDERED: SODIUM CHLORIDE 0.9% FLUSH 5 ML FLUSH IVF SCH (21:00)
[2016-09-06] MEDS ORDERED: ENOXAPARIN SODIUM 30 MG/0.3 ML SYRINGE SQ SCH (15:00)
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
== END 2016-09-05 17:33 | disposition short-term general hospital (02) | DRG 885 ==
LOC: H4EA 11:48 → UNDODISIN 09-05 16:46 → H4EA 09-05 17:13 → N06B 09-05 17:13 → UNDODISIN 09-05 17:33
PROVIDERS: ADMIT Psychiatry & Neurology Psychiatry; ATTEND Psychiatry & Neurology Psychiatry
DX: F25.0 Schizoaffective disorder, bipolar type (principal); N39.0 Urinary tract infection, site not specified; E03.9 Hypothyroidism, unspecified; S22.089D Unspecified fracture of T11-T12 vertebra, subsequent encounter for fracture with routine healing; S82.001D Unspecified fracture of right patella, subsequent encounter for closed fracture with routine healing; S72.91XD Unspecified fracture of right femur, subsequent encounter for closed fracture with routine healing; S42.409D Unspecified fracture of lower end of unspecified humerus, subsequent encounter for fracture with routine healing; Z79.01 Long term (current) use of anticoagulants; S02.19XD Other fracture of base of skull, subsequent encounter for fracture with routine healing; S32.592D Other specified fracture of left pubis, subsequent encounter for fracture with routine healing; S82.002D Unspecified fracture of left patella, subsequent encounter for closed fracture with routine healing; S63.015D Dislocation of distal radioulnar joint of left wrist, subsequent encounter; S72.309D Unspecified fracture of shaft of unspecified femur, subsequent encounter for closed fracture with routine healing; S52.002D Unspecified fracture of upper end of left ulna, subsequent encounter for closed fracture with routine healing; S52.102D Unspecified fracture of upper end of left radius, subsequent encounter for closed fracture with routine healing; K59.00 Constipation, unspecified; R00.0 Tachycardia, unspecified
CPT/HCPCS: 72190; 73070; 73080; 73100; 73110; 73552; 73560; 74000; 76000; 80048; 80053; 80061; 80178; 81001; 83036; 83735; 84100; 84439; 84443; 85025; 86376; 86800; 87077; 87086; 87186; 93005; 94150; J2270; J3010; L0200; L0484; L1830; L3808; L3908

== ENCOUNTER 2016-09-05 17:15 | Inpatient (IN) | payer BC ==
[~2016-09-05] VITALS: Ht 180.3 cm; Wt 81.8 kg
[~2016-09-05 17:15] MED LIST changes: -NICO21DI2 T-DERMAL; +ONDANSETRON HCL 4 MG/2 ML VIAL IV PUSH ONE; +PROPOFOL 200 MG/20 ML AMP IV ONE
--- NOTE | 2016-09-05 18:29 | HHI.HP ---
[facility] Admission Diagnosis Diagnoses: Chief Complaint: s/p Removal of external fixation, manipulation of left elbow under anesthesia, closed reduction of distal radial ulnar joint with placement of long-arm cast Travel History International Travel<30 Days: No Contact w/Intl Traveler <30 Da: No Traveled to Known Affected Are: No History of Present Illness Mr. Washington is a 40 year old male who has been under the care of psychiatry service following a suicide attempt underwent a surgical intervention today and subsequently was admitted to the medical-surgical floor. Dr. Gentile performed removal of external fixation, manipulation of left elbow under anesthesia, closed reduction of distal radial ulnar joint with placement of long-arm cast. At the time of this interview, patient reports feeling well, denies any chest pain, shortness of breath, fever or chills. Mr. Washington has a past medical history which includes hypothyroidism, bipolar and schizophrenia. Patient is status post trauma alert on 07/12/2016 secondary to suicide attempt patient jumped off a bridge onto railroad tracks. Patient sustained multiple fractures has been taken to the OR. Initially was in intensive care unit and intubated for airway protection as well as pain management. Patient was extubated 07/13/2016. Review of Systems ROS Limitations: Other (Negative except as noted in the HPI. ) Past Family Social History Past Medical History Depression Hypothyroidism Bipolar disorder. Past Surgical History s/p right femur IMN s/p exfix left elbow s/p ORIF left patella Reported Medications Current Medications IV Flush (NS Flush) 2 ml UNSCH PRN FLUSH FLUSH AFTER USING IV ACCESS; Start 09/05/16 at 18:30 IV Flush (NS Flush) 2 ml BID FLUSH ; Start 09/05/16 at 21:00 Acetaminophen (Tylenol) 650 mg Q4H PRN PO Fever, pain 1-4, headache; Start 09/05 at 18:30 Ondansetron HCl (Zofran Inj) 4 mg Q6H PRN IVP NAUSEA OR VOMITING; Start at 18:30 Bisacodyl (Dulcolax Supp) 10 mg DAILY PRN [place] CONSTIPATION; Start 09/05/16 at 18: 30 Magnesium Hydroxide (Milk Of Magnmichelle Liq) 30 ml Q12H PRN PO CONSTIPATION; Start 09/05/16 at 18:30 Sennosides (Senokot) 17.2 mg Q12H PRN PO CONSTIPATION; Start 09/05/16 at 18:30 Temazepam (Restoril) 15 mg HS PRN PO INSOMNIA; Start 09/05/16 at 18:30 Naloxone HCl (Narcan Inj) 0.4 mg UNSCH PRN IV SEE LABEL COMMENTS; Start at 18:30 Acetaminophen/ Hydrocodone Bitart ([place] 7.5-325 Mg) 1 tab Q6H PRN PO PAIN SCALE 5 TO 10; Start 09/05/16 at 18:30 Hydromorphone HCl (Dilaudid Pf Inj) 1 mg Q4H PRN IV PUSH BREAKTHROUGH PAIN; Start 09/05/16 at 18:30 Levothyroxine Sodium (Synthroid) 200 mcg DAILY@0600 PO ; Start 09/06/16 at 06:[address] Carbonate ([place] Carbonate) 600 mg Q12HR PO Last administered on 21:46; Start 09/05/16 at 21:00 Lorazepam (Ativan Inj) 1 mg Q4H PRN IV PUSH Agitation; Start 09/05/16 at 18:30 Pantoprazole Sodium (Protonix) 40 mg DAILY PO ; Start 09/06/16 at 09:00 Polyethylene Glycol (Miralax) 17 gm DAILY PO ; Start 09/06/16 at 09:00 Ziprasidone (Geodon) 80 mg BIDPC PO ; Start 09/06/16 at 09:00 Quetiapine Fumarate (SEROquel) 300 mg HS PO Last administered on 09/05/16 21:45 ; Start 09/05/16 at 21:00 Allergies: Coded Allergies: Tuna (Verified Allergy, Severe, Burning, 08/25/16) Haldol (Verified Allergy, Unknown, 07/13/16) Family History Father - PA at 60 years of age. Social History Denies alcohol use Denies tobacco use Denies illicit drug use Physical Exam Vital Signs Vital Signs Date Time Temp Pulse Resp B/P Pulse Ox O2 Delivery O2 Flow Rate FiO2 09/05/16 17:15 95 13 135/90 93 Room Air 09/05/16 17:00 99 14 129/93 94 Room Air 09/05/16 16:45 96 12 137/89 93 Room Air 09/05/16 16:30 96 12 136/94 93 Room Air 09/05/16 16:15 92 14 132/94 94 Room Air 09/05/16 16:07 98.4 95 16 132/91 96 Room Air Physical Exam GENERAL: This is a well-nourished, well-developed patient, in no apparent distress. SKIN: No rashes, ecchymoses or lesions. Warm and dry. HEAD: Atraumatic. Normocephalic. No temporal or scalp tenderness. EYES: Pupils equal round and reactive. No injection or drainage. ENT: Nose without bleeding, purulent drainage or septal hematoma. Airway patent. NECK: Trachea midline. No lymphadenopathy. Supple, nontender, no meningeal signs. CARDIOVASCULAR: Regular rate and rhythm without murmurs, gallops, or rubs. No JVD. RESPIRATORY: Clear to auscultation. Breath sounds equal bilaterally. No wheezes , rales, or rhonchi. GASTROINTESTINAL: Abdomen soft, non-tender, nondistended. No guarding. MUSCULOSKELETAL: Extremities without clubbing, cyanosis, or edema. Left upper ext cast. NEUROLOGICAL: Awake and alert. Cranial nerves II through XII intact. No focal neurological deficits. Normal speech. Assessment and Plan Assessment and Plan This a 40-year-old gentleman with a past medical history which includes hypothyroidism, bipolar and schizophrenia. Patient is status post trauma alert on 07/12/2016 secondary to suicide attempt patient jumped off a bridge onto railroad tracks. Patient sustained multiple fractures has been taken to the OR initially was in intensive care unit and intubated for airway protection as well as pain management. Patient was extubated 07/13/2016. Patient was under psychiatry service care until 09/05/2016. Patient underwent left upper ext exfix removal and closed reduction with casting. Patient was subsequently admitted under hospitalist services. - Suicide attempt 07/12/2016 - Multiple orthopedic injuries - from suicde attempt on 07/12/2016. s/p right femur IMN s/p exfix left elbow s/p ORIF left patella right patella fx nonop pelvic fxs - Left elbow fracture dislocation with retained external fixation - Left distal radial ulnar joint dislocation - s/p removal of external fixation, manipulation of left elbow under anesthesia, closed reduction of distal radial ulnar joint with placement of long-arm cast - Consult orthopedic surgery to continue following up. - Continue pain medications - [place] and Dilaudid IV PRN. - Miralax, Milk of Mag, Senokot bowel regimen. - Hypothyroidism - continue levothyroxine 200 mg daily - Bipolar disorder - schizophrenia - Continue Seroquel 300mg QHS - [place] 600mg Q12hrs. - Geodon 80mg BID Full code. SCDs. Pharmacological DVT prophylaxis when okay with Orthopedic surgery. Physician Certification 2 Midnight Certification Type: Admission for Inpatient Services Order for Inpatient Services The services are ordered in accordance with Medicare regulations or non- Medicare payer requirements, as applicable. In the case of services not specified as inpatient-only, they are appropriately provided as inpatient services in accordance with the 2-midnight benchmark. Estimated LOS (days): 2 days is the estimated time the patient will need to remain in the hospital, assuming treatment plan goals are met and no additional complications. Post-Hospital Plan: [facility] Virgilio Troy DO Sep 05, 2016 18:29
[2016-09-05] MEDS ORDERED: HYDROmorphone HCL PF 1 MG/ML VIAL IV PUSH PRN (18:30)
[2016-09-05] MEDS ORDERED: SODIUM CHLORIDE 0.9% FLUSH 5 ML FLUSH FLUSH PRN (18:30)
[2016-09-05] MEDS ORDERED: LORazepam 2 MG/ML VIAL IV PUSH PRN (18:30)
[2016-09-05] MEDS ORDERED: ONDANSETRON HCL 4 MG/2 ML VIAL IVP PRN (18:30)
[2016-09-05] MEDS ORDERED: SENNOSIDES 8.6 MG TAB PO PRN (18:30)
[2016-09-05] MEDS ORDERED: ACETAMINOPHEN 325 MG TAB PO PRN (18:30)
[2016-09-05] MEDS ORDERED: BISACODYL 10 MG SUPP PR PRN (18:30)
[2016-09-05] MEDS ORDERED: MAGNESIUM HYDROXIDE SUSP 30 ML CUP PO PRN (18:30)
[2016-09-05] MEDS ORDERED: TEMAZEPAM 15 MG CAP PO PRN (18:30)
[2016-09-05] MEDS ORDERED: NALOXONE HCL 0.4 MG/ML AMP IV PRN (18:30)
[2016-09-05 20:40] VITALS: BP 121/84; PULSE 91; RESP 16; TEMP 96.2; O2SAT 97
[2016-09-05] MEDS: SODIUM CHLORIDE 0.9% FLUSH 5 ML FLUSH FLUSH SCH (21:00)
[2016-09-05] MEDS: QUEtiapine FUMARATE 300 MG TAB PO SCH (21:45)
[2016-09-05] MEDS: LITHIUM CARBONATE 300 MG CAP PO SCH (21:46)
[2016-09-06 00:20] VITALS: BP 108/71; PULSE 99; RESP 16; TEMP 96.5; O2SAT 96
[2016-09-06 05:30] VITALS: PULSE 68
[2016-09-06] MEDS: LEVOTHYROXINE SODIUM 200 MCG TAB PO SCH (06:26)
[2016-09-06] MEDS: ACETAMINOPHEN/HYDROcodone 325 MG/7.5 MG TAB PO PRN ×3 (06:37→22:29)
[2016-09-06 07:50] VITALS: BP 125/86; PULSE 93; RESP 16; TEMP 97.4; O2SAT 97
[2016-09-06] MEDS: ZIPRASIDONE HCL 80 MG CAP PO SCH ×2 (08:12→17:45)
[2016-09-06] MEDS: PANTOPRAZOLE SOD 40 MG DELAYED RELEASE TAB PO SCH (08:12)
[2016-09-06] MEDS: LITHIUM CARBONATE 300 MG CAP PO SCH ×2 (08:12→20:46)
[2016-09-06] MEDS: SODIUM CHLORIDE 0.9% FLUSH 5 ML FLUSH FLUSH SCH ×2 (08:12→20:46)
[2016-09-06] MEDS: POLYETHYLENE GLYCOL 17 GM PKG PO SCH (08:12)
--- NOTE | 2016-09-06 10:25 | PD.ORT.PN ---
Subjective Subjective Remarks s/p right femur IMN s/p ORIF left patella s/p non op treatment right patella s/p ligamentous reconstruction with Exfix left elbow s/p non op pelvis fxs s/p closed reduction left DRUJ no issues. no complaints. Objective Vitals Vital Signs Date Time Temp Pulse Resp B/P Pulse Ox O2 Delivery O2 Flow Rate FiO2 09/06/16 07:50 97.4 93 16 125/86 97 09/06/16 05:30 68 09/06/16 00:20 96.5 99 16 108/71 96 09/05/16 20:40 96.2 91 16 121/84 97 09/05/16 18:58 Room Air 09/05/16 18:20 98.1 96 12 121/91 94 Room Air 09/05/16 18:00 94 13 121/87 94 Room Air 09/05/16 17:30 95 13 129/87 94 Room Air 09/05/16 17:15 95 13 135/90 93 Room Air 09/05/16 17:00 99 14 129/93 94 Room Air 09/05/16 16:45 96 12 137/89 93 Room Air 09/05/16 16:30 96 12 136/94 93 Room Air 09/05/16 16:15 92 14 132/94 94 Room Air 09/05/16 16:07 98.4 95 16 132/91 96 Room Air I/O 09/05/16 09/05/16 09/05/16 09/06/16 09/06/16 09/06/16 07:00 15:00 23:00 07:00 15:00 23:00 Intake Total 1145 ml 936 ml Output Total 600 ml 625 ml Balance 545 ml 311 ml Intake Oral 440 ml 240 ml IV Total 405 ml 696 ml Other 300 ml Output Urine Total 600 ml 625 ml Estimated Blood Loss 0 ml # Bowel Movements 0 0 Objective Remarks LUE: long arm cast in place in supination. NVI distally. contractures of fingers and wrist. LLE: incision and lacerations healing without sign of infection. +CKS. NVI RLE: +CKS. minimal swelling. NVI. incisions and lacerations healing without sign of infection.; Pelvis with mild tenderness with motion of hips Assessment & Plan Assessment and Plan 1) I&D with ORIF L open Patella fx, R long intramedullary femoral nail for intertroch and fem shaft fxs, I&D L Hand with closure of traumatic wound, I&D L elbow with application of ex-fix( [place])07/12/16 2) status post radial head replacement and complex repair of left elbow fracture dislocation with hinged external fixator(Seferino) 07/15/16 Nonweightbearing left upper extremity Occupational therapy for ROM of fingers 3) Right patella fracture to be treated nonoperatively with knee immobilizer 4)Pelvic fractures --plan nonoperative treatment 5) Closed reduction with casting and removal of exfix left elbow and DRUJ - Bilateral patella fractures continue knee immobilizers, but now begin passive range of motion from 0-60 NWB BLE and L UE dvt prophylaxis med management psych management stable to dc from orthopedics Junaid Castellano Jr., MD Sep 06, 2016 10:25
--- NOTE | 2016-09-06 11:33 | HHI.PR ---
Subjective Remarks Follow up for multiple orthopedic fractures. s/p closed reduction with casting and removal fo exfix left elbow. Patient is sitting in the chair. Doing well. No acute concerns. No fever, chills. Objective Vitals Vital Signs Date Time Temp Pulse Resp B/P Pulse Ox O2 Delivery O2 Flow Rate FiO2 09/06/16 07:50 97.4 93 16 125/86 97 09/06/16 05:30 68 09/06/16 00:20 96.5 99 16 108/71 96 09/05/16 20:40 96.2 91 16 121/84 97 09/05/16 18:58 Room Air 09/05/16 18:20 98.1 96 12 121/91 94 Room Air 09/05/16 18:00 94 13 121/87 94 Room Air 09/05/16 17:30 95 13 129/87 94 Room Air 09/05/16 17:15 95 13 135/90 93 Room Air 09/05/16 17:00 99 14 129/93 94 Room Air 09/05/16 16:45 96 12 137/89 93 Room Air 09/05/16 16:30 96 12 136/94 93 Room Air 09/05/16 16:15 92 14 132/94 94 Room Air 09/05/16 16:07 98.4 95 16 132/91 96 Room Air I/O 09/05/16 09/05/16 09/05/16 09/06/16 09/06/16 09/06/16 07:00 15:00 23:00 07:00 15:00 23:00 Intake Total 1145 ml 936 ml Output Total 600 ml 625 ml Balance 545 ml 311 ml Intake Oral 440 ml 240 ml IV Total 405 ml 696 ml Other 300 ml Output Urine Total 600 ml 625 ml Estimated Blood Loss 0 ml # Bowel Movements 0 0 Objective Remarks GENERAL: Alert, Oriented x 3, NAD. SKIN: Warm and dry. HEAD: Normocephalic. EYES: No scleral icterus. No injection or drainage. NECK: Supple, trachea midline. No JVD or lymphadenopathy. CARDIOVASCULAR: Regular rate and rhythm without murmurs, gallops, or rubs. RESPIRATORY: Breath sounds equal bilaterally. No accessory muscle use. GASTROINTESTINAL: Abdomen soft, non-tender, nondistended. MUSCULOSKELETAL: No cyanosis, or edema. multiple fractures, s/p multiple surgeries. Incisions/lacerations healing well. No drainage. BACK: Nontender without obvious deformity. No CVA tenderness. Procedures Closed reduction with casting and removal of exfix left elbow and DRUJ 09/05/2016. A/P Assessment and Plan This a 40-year-old gentleman with a past medical history which includes hypothyroidism, bipolar and schizophrenia. Patient is status post trauma alert on 07/12/2016 secondary to suicide attempt patient jumped off a bridge onto railroad tracks. Patient sustained multiple fractures has been taken to the OR initially was in intensive care unit and intubated for airway protection as well as pain management. Patient was extubated 07/13/2016. Patient was under psychiatry service care until 09/05/2016. Patient underwent left upper ext exfix removal and closed reduction with casting. Patient was subsequently admitted under hospitalist services. - Suicide attempt 07/12/2016 - Multiple orthopedic injuries - from suicde attempt on 07/12/2016. s/p right femur IMN s/p exfix left elbow s/p ORIF left patella right patella fx nonop pelvic fxs - Left elbow fracture dislocation with retained external fixation - Left distal radial ulnar joint dislocation - s/p removal of external fixation, manipulation of left elbow under anesthesia, closed reduction of distal radial ulnar joint with placement of long-arm cast 09/05/2016. - Orthopedic surgery cleared for discharge. - Continue pain medications - [place] and Dilaudid IV PRN. - Miralax, Milk of Mag, Senokot bowel regimen. - Hypothyroidism - continue levothyroxine 200 mg daily - Bipolar disorder - schizophrenia - Continue Seroquel 300mg QHS - [place] 600mg Q12hrs. - Geodon 80mg BID - Discharge plan: Discussed with CM - we will start looking at SNF for discharge plan. Full code. Will start heparin SQ for DVT prophylaxis. Virgilio Troy DO Sep 06, 2016 11:33
[2016-09-06 11:54] VITALS: BP 119/96; PULSE 108; RESP 16; TEMP 96.7; O2SAT 97
[2016-09-06 12:48] LABS: AUTOMATED NEUTROPHIL # 4.6 TH/MM3 (1.8-7.7); BASOPHIL # 0.1 TH/MM3 (0-0.2); BASOPHIL % 0.9 % (0.0-2.0); EOSINOPHIL # 0.2 TH/MM3 (0-0.4); EOSINOPHIL % 3.7 % (0.0-4.0); HEMATOCRIT 40.4 % (39.0-51.0); HEMO FLAGS DIFF FINAL; LYMPH % 15.6 % (9.0-44.0); LYMPHOCYTE # 0.9 TH/MM3 (1.0-4.8); MEAN CELL VOLUME 86.3 FL (80.0-100.0); MEAN CORPUSCULAR HEMOGLOBIN 29.5 PG (27.0-34.0); MEAN CORPUSCULAR HGB CONC 34.2 % (32.0-36.0); MONO % 4.7 % (0.0-8.0); NEUT % 75.1 % (16.0-70.0); PLATELET COUNT 211 TH/MM3 (150-450); RED BLOOD COUNT 4.68 MIL/MM3 (4.50-5.90); RED CELL DISTRIBUTION WIDTH 15.3 % (11.6-17.2); WHITE BLOOD COUNT 6.1 TH/MM3 (4.0-11.0)
[2016-09-06 13:07] LABS: POTASSIUM 3.9 MEQ/L (3.5-5.1)
[2016-09-06 16:00] VITALS: BP 120/85; PULSE 97; RESP 17; TEMP 97.5; O2SAT 98
[2016-09-06 20:42] VITALS: O2SAT 98
[2016-09-06] MEDS: QUEtiapine FUMARATE 300 MG TAB PO SCH (20:46)
[2016-09-07 00:08] VITALS: BP 128/77; PULSE 101; RESP 16; TEMP 96.2; O2SAT 98
[2016-09-07 04:00] VITALS: BP 119/88; PULSE 95; RESP 16; TEMP 97.9; O2SAT 99
[2016-09-07] MEDS: LEVOTHYROXINE SODIUM 200 MCG TAB PO SCH (06:01)
[2016-09-07] MEDS: ACETAMINOPHEN/HYDROcodone 325 MG/7.5 MG TAB PO PRN ×2 (06:01→12:18)
[2016-09-07 08:00] VITALS: BP 112/80; PULSE 89; RESP 18; TEMP 97.8; O2SAT 98
[2016-09-07] MEDS: ZIPRASIDONE HCL 80 MG CAP PO SCH ×2 (09:28→18:23)
[2016-09-07] MEDS: SODIUM CHLORIDE 0.9% FLUSH 5 ML FLUSH FLUSH SCH ×2 (09:28→20:53)
[2016-09-07] MEDS: POLYETHYLENE GLYCOL 17 GM PKG PO SCH (09:28)
[2016-09-07] MEDS: PANTOPRAZOLE SOD 40 MG DELAYED RELEASE TAB PO SCH (09:28)
[2016-09-07] MEDS: LITHIUM CARBONATE 300 MG CAP PO SCH ×2 (09:29→20:53)
[2016-09-07 12:00] VITALS: BP 129/88; PULSE 100; RESP 18; TEMP 98.1; O2SAT 98
--- NOTE | 2016-09-07 13:59 | HHI.PR ---
Subjective Remarks No acute events overnight. Afebrile, vital signs stable. Patient reports pain in his left hand where his arm is casted. He is able to move all his fingers and has good blood flow to the area. Last bowel movement was 2 days ago. Denies nausea/vomiting or abdominal pain. Objective Vitals Vital Signs Date Time Temp Pulse Resp B/P Pulse Ox O2 Delivery O2 Flow Rate FiO2 09/07/16 08:00 97.8 89 18 112/80 98 09/07/16 04:00 97.9 95 16 119/88 99 09/07/16 00:08 96.2 101 16 128/77 98 09/06/16 20:42 98 21 09/06/16 16:00 97.5 97 17 120/85 98 I/O 09/06/16 09/06/16 09/06/16 09/07/16 09/07/16 09/07/16 07:00 15:00 23:00 07:00 15:00 23:00 Intake Total 936 ml 720 ml 720 ml 720 ml Output Total 625 ml 900 ml 1450 ml 950 ml Balance 311 ml -180 ml -730 ml -230 ml Intake Oral 240 ml 720 ml 720 ml 720 ml IV Total 696 ml Output Urine Total 625 ml 900 ml 1450 ml 950 ml # Bowel Movements 0 Result Diagram: 09/06/16 1215 09/06/16 1215 Objective Remarks Gen.: No acute distress Head: Normocephalic. Atraumatic. EENT: Pupils equal round and reactive to light. Nose without drainage. Airway intact. Throat without injection. Cardiovascular: Regular rate and rhythm. No murmurs, rubs or gallops. Respiratory: Lungs clear to auscultation bilaterally. No wheezes or rhonchi. Abdomen: Soft, nontender, nondistended. No peritoneal signs. Musculoskeletal: No gross deformities. No edema. Skin: No obvious rashes or erythema. Neuro: Sensory and motor grossly intact. Cranial nerves II through XII grossly intact. Procedures Closed reduction with casting and removal of exfix left elbow and DRUJ 09/05/2016. A/P Problem List: (1) Trauma ICD Code: T14.90 Status: Acute (2) Multiple fractures ICD Code: T14.8 Status: Acute (3) Hypothyroidism ICD Code: E03.9 Status: Chronic (4) Patella fracture ICD Code: S82.009A Status: Acute (5) Elbow fracture ICD Code: S42.409A Status: Acute (6) Femur fracture, right ICD Code: S72.91XA Status: Acute (7) T12 vertebral fracture ICD Code: S22.089A Status: Acute (8) Suicide attempt ICD Code: T14.91 Status: Acute (9) Pelvic fracture ICD Code: S32.9XXA Status: Acute (10) Schizoaffective disorder, bipolar type ICD Code: F25.0 Status: Chronic Assessment and Plan This a 40-year-old gentleman with a past medical history which includes hypothyroidism, bipolar and schizophrenia. Patient is status post trauma alert on 07/12/2016 secondary to suicide attempt patient jumped off a bridge onto railroad tracks. Patient sustained multiple fractures has been taken to the OR initially was in intensive care unit and intubated for airway protection as well as pain management. Patient was extubated 07/13/2016. Patient was under psychiatry service care until 09/05/2016. Patient underwent left upper ext exfix removal and closed reduction with casting. Patient was subsequently admitted under hospitalist services. - Suicide attempt 07/12/2016 - Multiple orthopedic injuries - from suicde attempt on 07/12/2016. s/p right femur IMN s/p exfix left elbow s/p ORIF left patella right patella fx nonop pelvic fxs - Left elbow fracture dislocation with retained external fixation - Left distal radial ulnar joint dislocation - s/p removal of external fixation, manipulation of left elbow under anesthesia, closed reduction of distal radial ulnar joint with placement of long-arm cast 09/05/2016. - Orthopedic surgery cleared for discharge. - Continue pain medications - [place] and Dilaudid IV PRN. - Miralax, Milk of Mag, Senokot bowel regimen. - Hypothyroidism - continue levothyroxine 200 mg daily - Bipolar disorder - schizophrenia - Continue Seroquel 300mg QHS - [place] 600mg Q12hrs. - Geodon 80mg BID - Discharge plan: Will be discharged to SNF once patient accepted Full code. Heparin SQ for DVT prophylaxis. Judie Baez MD R3 Sep 07, 2016 13:58
[2016-09-07 16:00] VITALS: BP 120/82; PULSE 97; RESP 18; TEMP 97.3; O2SAT 99
[2016-09-07 20:00] VITALS: BP 105/71; PULSE 98; RESP 20; TEMP 97.8; O2SAT 100
[2016-09-07] MEDS: QUEtiapine FUMARATE 300 MG TAB PO SCH (20:53)
[2016-09-08] VITALS: BP 108/68; PULSE 97; RESP 20; TEMP 98.2; O2SAT 98
[2016-09-08 04:00] VITALS: BP 110/66; PULSE 97; RESP 20; TEMP 98.2; O2SAT 96
[2016-09-08] MEDS: LEVOTHYROXINE SODIUM 200 MCG TAB PO SCH (04:58)
--- NOTE | 2016-09-08 06:56 | PD.ORT.PN ---
Subjective Subjective Remarks POD 1 s/p closed reduction left wrist with casting s/p ORIF left patella and right femur IMN s/p right patella fx - nonop s/p lig repair with application exfix left elbow doing well. pain controlled. Objective Vitals Vital Signs Date Time Temp Pulse Resp B/P Pulse Ox O2 Delivery O2 Flow Rate FiO2 09/08/16 04:00 98.2 97 20 110/66 96 09/08/16 00:00 98.2 97 20 108/68 98 09/07/16 20:00 97.8 98 20 105/71 100 09/07/16 16:00 97.3 97 18 120/82 99 09/07/16 12:00 98.1 100 18 129/88 98 09/07/16 08:00 97.8 89 18 112/80 98 I/O 09/07/16 09/07/16 09/07/16 09/08/16 09/08/16 09/08/16 07:00 15:00 23:00 07:00 15:00 23:00 Intake Total 720 ml 720 ml 240 ml 240 ml Output Total 950 ml 2750 ml 450 ml 600 ml Balance -230 ml -2030 ml -210 ml -360 ml Intake Oral 720 ml 720 ml 240 ml 240 ml Output Urine Total 950 ml 2750 ml 450 ml 600 ml # Bowel Movements 0 0 0 Result Diagram: 09/06/16 1215 09/06/16 1215 Objective Remarks LUE: long arm cast in place in supination. NVI distally. contractures of fingers and wrist. LLE: incision and lacerations healing without sign of infection. +CKS. NVI RLE: +CKS. minimal swelling. NVI. incisions and lacerations healing without sign of infection.; Pelvis with mild tenderness with motion of hips Assessment & Plan Assessment and Plan 1) I&D with ORIF L open Patella fx, R long intramedullary femoral nail for intertroch and fem shaft fxs, I&D L Hand with closure of traumatic wound, I&D L elbow with application of ex-fix( [place])07/12/16 2) status post radial head replacement and complex repair of left elbow fracture dislocation with hinged external fixator(Seferino) 07/15/16 Nonweightbearing left upper extremity Occupational therapy for ROM of fingers 3) Right patella fracture to be treated nonoperatively with knee immobilizer 4)Pelvic fractures --plan nonoperative treatment 5) Closed reduction with casting and removal of exfix left elbow and DRUJ - Bilateral patella fractures continue knee immobilizers, but now begin passive range of motion from 0-60 NWB BLE and L UE dvt prophylaxis med management psych management stable to dc from orthopedics plan for DC to rehab Omer Griffiths Sep 08, 2016 06:56
[2016-09-08 08:00] VITALS: BP 121/92; PULSE 99; RESP 18; TEMP 96.9; O2SAT 97
[2016-09-08] MEDS: POLYETHYLENE GLYCOL 17 GM PKG PO SCH (09:00)
[2016-09-08] MEDS: SODIUM CHLORIDE 0.9% FLUSH 5 ML FLUSH FLUSH SCH ×2 (09:01→20:21)
[2016-09-08] MEDS: ZIPRASIDONE HCL 80 MG CAP PO SCH ×2 (09:01→18:03)
[2016-09-08] MEDS: PANTOPRAZOLE SOD 40 MG DELAYED RELEASE TAB PO SCH (09:01)
[2016-09-08] MEDS: LITHIUM CARBONATE 300 MG CAP PO SCH ×2 (09:01→20:21)
[2016-09-08 12:00] VITALS: BP 121/89; PULSE 92; RESP 17; TEMP 97.2; O2SAT 97
--- NOTE | 2016-09-08 13:10 | HHI.PYPN ---
Subjective Remarks Patient was seen today for psychiatric follow-up, patient was found calm, cooperative, pleasant, reports good mood, pain in his left arm on and off, patient endorses good motivation to continue with his treatment, psychiatrically recommendations, he denies suicidal or homicidal ideation, he denies visual and auditory hallucinations. No paranoia, delusions, ideas of reference, thought controlling, agitation, aggressive behavior were observed or reported. Patient is oriented 3, no gross cognitive impairment observed. Review of Systems Other No somatic complaints at this moment Objective Alert: Yes [place]: Person, Place, Date Mood: Calm Affect: Euthymic Memory Intact: Recent, Remote Hallucinations: Other (none) Delusions: No Delusion Type: Other (none elicited) Suicidal: Ideation (he denies) Homicidal: Ideation (he denies) Insight/Judgement Good Vitals/IOs Vital Signs Date Time Temp Pulse Resp B/P Pulse Ox O2 Delivery O2 Flow Rate FiO2 09/08/16 08:00 96.9 99 18 121/92 97 09/06/16 20:42 21 09/05/16 18:58 Room Air Intake and Output 09/07/16 09/07/16 09/08/16 08:00 16:00 00:00 Intake Total 720 ml 720 ml 240 ml Output Total 950 ml 2750 ml 450 ml Balance -230 ml -2030 ml -210 ml Assessment & Plan Problem List: (1) Schizoaffective disorder, bipolar type Assessment & Plan: At the moment of this evaluation the patient does not seem to present any acute, concerning or significant psychiatric symptomatology of depression, anxiety, trevor or psychosis. He denies suicidal and homicidal ideation, he denies visual and auditory hallucinations. Patient has showed a significant response to current psychotropic regimen, Geodon 80 mg twice a day, Seroquel 200 mg at bedtime, lithium 600 mg twice a day. [place] levels were ordered today. Extensive support, psycho education motivation provided ICD Code: F25.0 Assessment & Plan Estimated LOS: days Justification for Cont. Inpt. Patient does not meet criteria for psychiatric admission at this moment, he can continue his psychiatric care as an outpatient. Dariel Sanford MD Sep 08, 2016 13:09
--- NOTE | 2016-09-08 14:22 | HHI.PR ---
Subjective Remarks No chest pain or short of breath or fever or chills Objective Vitals Vital Signs Date Time Temp Pulse Resp B/P Pulse Ox O2 Delivery O2 Flow Rate FiO2 09/08/16 12:00 97.2 92 17 121/89 97 09/08/16 08:00 96.9 99 18 121/92 97 09/08/16 04:00 98.2 97 20 110/66 96 09/08/16 00:00 98.2 97 20 108/68 98 09/07/16 20:00 97.8 98 20 105/71 100 09/07/16 16:00 97.3 97 18 120/82 99 I/O 09/07/16 09/07/16 09/07/16 09/08/16 09/08/16 09/08/16 07:00 15:00 23:00 07:00 15:00 23:00 Intake Total 720 ml 720 ml 240 ml 240 ml Output Total 950 ml 2750 ml 450 ml 600 ml Balance -230 ml -2030 ml -210 ml -360 ml Intake Oral 720 ml 720 ml 240 ml 240 ml Output Urine Total 950 ml 2750 ml 450 ml 600 ml # Bowel Movements 0 0 0 Result Diagram: 09/06/16 1215 09/06/16 1215 Objective Remarks GENERAL: This is a well-nourished, well-developed patient, in no apparent distress. CARDIOVASCULAR: Regular rate and rhythm without murmurs, gallops, or rubs. RESPIRATORY: Clear to auscultation. Breath sounds equal bilaterally. No wheezes , rales, or rhonchi. GASTROINTESTINAL: Abdomen soft, non-tender, nondistended. Normal active bowel sounds MUSCULOSKELETAL: No cyanosis, or edema. NEURO: Alert & Oriented x4 to person, place, time, situation. Moves all ext x4 Procedures Closed reduction with casting and removal of exfix left elbow and DRUJ 09/05/2016. A/P Problem List: (1) Trauma ICD Code: T14.90 Status: Acute (2) Multiple fractures ICD Code: T14.8 Status: Acute (3) Hypothyroidism ICD Code: E03.9 Status: Chronic (4) Patella fracture ICD Code: S82.009A Status: Acute (5) Elbow fracture ICD Code: S42.409A Status: Acute (6) Femur fracture, right ICD Code: S72.91XA Status: Acute (7) T12 vertebral fracture ICD Code: S22.089A Status: Acute (8) Suicide attempt ICD Code: T14.91 Status: Acute (9) Pelvic fracture ICD Code: S32.9XXA Status: Acute (10) Schizoaffective disorder, bipolar type ICD Code: F25.0 Status: Chronic Assessment and Plan 09/08/16: Awaiting placement, reconsulted psychiatry for possible transfer to psych unit A/P: This a 40-year-old gentleman with a past medical history which includes hypothyroidism, bipolar and schizophrenia. Patient is status post trauma alert on 07/12/2016 secondary to suicide attempt patient [place] bridge [place] railroad [place]. Patient sustained multiple fractures has been taken to the OR initially was in intensive care unit and intubated for airway protection as well as pain management. Patient was extubated 07/13/2016. Patient was under psychiatry service care until 09/05/2016. Patient underwent left upper ext exfix removal and closed reduction with casting. Patient was subsequently admitted under hospitalist services. - Suicide attempt 07/12/2016 - Multiple orthopedic injuries - from suicde attempt on 07/12/2016. s/p right femur IMN s/p exfix left elbow s/p ORIF left patella right patella fx nonop pelvic fxs - Left elbow fracture dislocation with retained external fixation - Left distal radial ulnar joint dislocation - s/p removal of external fixation, manipulation of left elbow under anesthesia, closed reduction of distal radial ulnar joint with placement of long-arm cast 09/05/2016. - Orthopedic surgery cleared for discharge. - Continue pain medications - [place] and Dilaudid IV PRN. - Miralax, Milk of Mag, Senokot bowel regimen. - Hypothyroidism - continue levothyroxine 200 mg daily - Bipolar disorder - schizophrenia - Continue Seroquel 300mg QHS - [place] 600mg Q12hrs. - Geodon 80mg BID Full code. Heparin SQ for DVT prophylaxis. Donnell Quintanilla MD Sep 08, 2016 14:22
[2016-09-08 16:00] VITALS: BP 120/87; PULSE 91; RESP 18; TEMP 98; O2SAT 97
[2016-09-08] MEDS: QUEtiapine FUMARATE 300 MG TAB PO SCH (20:21)
[2016-09-08 20:25] VITALS: BP 117/84; PULSE 107; RESP 16; TEMP 98.4; O2SAT 96
[2016-09-09 00:05] VITALS: BP 107/82; PULSE 98; RESP 16; TEMP 97.8; O2SAT 98
[2016-09-09 00:15] VITALS: BP 105/71; PULSE 104; RESP 16; TEMP 96.4; O2SAT 97
--- NOTE | 2016-09-09 06:36 | PD.ORT.PN ---
Subjective Subjective Remarks POD 4 s/p closed reduction left wrist with casting s/p ORIF left patella and right femur IMN s/p right patella fx - nonop s/p lig repair with application exfix left elbow doing well. pain controlled. Objective Vitals Vital Signs Date Time Temp Pulse Resp B/P Pulse Ox O2 Delivery O2 Flow Rate FiO2 09/09/16 00:15 96.4 104 16 105/71 97 09/08/16 20:25 98.4 107 16 117/84 96 09/08/16 18:51 Room Air 09/08/16 16:00 98.0 91 18 120/87 97 09/08/16 12:00 97.2 92 17 121/89 97 09/08/16 08:00 96.9 99 18 121/92 97 I/O 09/08/16 09/08/16 09/08/16 09/09/16 09/09/16 09/09/16 07:00 15:00 23:00 07:00 15:00 23:00 Intake Total 240 ml 720 ml 480 ml Output Total 600 ml 1350 ml Balance -360 ml 720 ml -870 ml Intake Oral 240 ml 720 ml 480 ml Output Urine Total 600 ml 1350 ml # Voids 3 # Bowel Movements 0 1 Result Diagram: 09/06/16 1215 09/06/16 1215 Objective Remarks LUE: long arm cast in place in supination. NVI distally. contractures of fingers and wrist. LLE: incision and lacerations healing without sign of infection. +CKS. NVI RLE: +CKS. minimal swelling. NVI. incisions and lacerations healing without sign of infection.; Pelvis with mild tenderness with motion of hips Assessment & Plan Assessment and Plan 1) I&D with ORIF L open Patella fx, R long intramedullary femoral nail for intertroch and fem shaft fxs, I&D L Hand with closure of traumatic wound, I&D L elbow with application of ex-fix( [place])07/12/16 2) status post radial head replacement and complex repair of left elbow fracture dislocation with hinged external fixator(Seferino) 07/15/16 Nonweightbearing left upper extremity Occupational therapy for ROM of fingers 3) Right patella fracture to be treated nonoperatively with knee immobilizer 4)Pelvic fractures --plan nonoperative treatment 5) Closed reduction with casting and removal of exfix left elbow and DRUJ - LLE: DC knee brace. PROM 0-90. WBAT RLE: maintain knee brace. PROM 0-90. WBAT with knee brace on LUE: NWB and maintain cast. ok for platform walker RUE: WBAT. no restrictions -DVT prophylaxis -psych mgmt -CM for rehab placement now that activity level increased Omer Griffiths Sep 09, 2016 06:36
[2016-09-09 08:12] VITALS: BP 128/87; PULSE 90; RESP 16; TEMP 97.7; O2SAT 100
[2016-09-09] MEDS: PANTOPRAZOLE SOD 40 MG DELAYED RELEASE TAB PO SCH (09:00)
[2016-09-09] MEDS: LITHIUM CARBONATE 300 MG CAP PO SCH ×2 (09:00→21:08)
[2016-09-09] MEDS: POLYETHYLENE GLYCOL 17 GM PKG PO SCH (09:00)
[2016-09-09] MEDS: ZIPRASIDONE HCL 80 MG CAP PO SCH ×2 (09:00→17:35)
[2016-09-09] MEDS: LEVOTHYROXINE SODIUM 200 MCG TAB PO SCH (09:00)
[2016-09-09] MEDS: SODIUM CHLORIDE 0.9% FLUSH 5 ML FLUSH FLUSH SCH ×2 (09:01→21:08)
--- NOTE | 2016-09-09 09:10 | HHI.PR ---
Subjective Remarks Patient laying in bed comfortably he denied pain I discussed with the nurse he had a bowel movement He is afebrile Still working on finding a rehabilitation facility He was cleared by psychiatry to be discharged and follow up with psychiatrist as an outpatient Objective Vitals Vital Signs Date Time Temp Pulse Resp B/P Pulse Ox O2 Delivery O2 Flow Rate FiO2 09/09/16 00:15 96.4 104 16 105/71 97 09/08/16 20:25 98.4 107 16 117/84 96 09/08/16 18:51 Room Air 09/08/16 16:00 98.0 91 18 120/87 97 09/08/16 12:00 97.2 92 17 121/89 97 I/O 09/08/16 09/08/16 09/08/16 09/09/16 09/09/16 09/09/16 07:00 15:00 23:00 07:00 15:00 23:00 Intake Total 240 ml 720 ml 480 ml 240 ml Output Total 600 ml 1350 ml 775 ml Balance -360 ml 720 ml -870 ml -535 ml Intake Oral 240 ml 720 ml 480 ml 240 ml Output Urine Total 600 ml 1350 ml 775 ml # Voids 3 # Bowel Movements 0 1 0 Result Diagram: 09/06/16 1215 09/06/16 1215 Objective Remarks GENERAL: This is a well-nourished, well-developed patient, in no apparent distress. CARDIOVASCULAR: Regular rate and rhythm without murmurs, gallops, or rubs. RESPIRATORY: Clear to auscultation. Breath sounds equal bilaterally. No wheezes , rales, or rhonchi. GASTROINTESTINAL: Abdomen soft, non-tender, nondistended. Normal active bowel sounds MUSCULOSKELETAL: No cyanosis, or edema. NEURO: Alert & Oriented x4 to person, place, time, situation. Moves all ext x4 Procedures Closed reduction with casting and removal of exfix left elbow and DRUJ 09/05/2016. A/P Problem List: (1) Trauma ICD Code: T14.90 Status: Acute (2) Multiple fractures ICD Code: T14.8 Status: Acute (3) Hypothyroidism ICD Code: E03.9 Status: Chronic (4) Patella fracture ICD Code: S82.009A Status: Acute (5) Elbow fracture ICD Code: S42.409A Status: Acute (6) Femur fracture, right ICD Code: S72.91XA Status: Acute (7) T12 vertebral fracture ICD Code: S22.089A Status: Acute (8) Suicide attempt ICD Code: T14.91 Status: Acute (9) Pelvic fracture ICD Code: S32.9XXA Status: Acute (10) Schizoaffective disorder, bipolar type ICD Code: F25.0 Status: Chronic Assessment and Plan 09/08/16: Awaiting placement, reconsulted psychiatry for possible transfer to psych unit 09/09/16: Doing well, had a bowel movement, awaiting placement, spring encaser kindly will let us know once facility is ready to take patient A/P: This a 40-year-old gentleman with a past medical history which includes hypothyroidism, bipolar and schizophrenia. Patient is status post trauma alert on 07/12/2016 secondary to suicide attempt patient [place] a bridge [place] railroad tracks. Patient sustained multiple fractures has been taken to the OR initially was in intensive care unit and intubated for airway protection as well as pain management. Patient was extubated 07/13/2016. Patient was under psychiatry service care until 09/05/2016. Patient underwent left upper ext exfix removal and closed reduction with casting. Patient was subsequently admitted under hospitalist services. - Suicide attempt 07/12/2016 - Multiple orthopedic injuries - from suicde attempt on 07/12/2016. s/p right femur IMN s/p exfix left elbow s/p ORIF left patella right patella fx nonop pelvic fxs - Left elbow fracture dislocation with retained external fixation - Left distal radial ulnar joint dislocation - s/p removal of external fixation, manipulation of left elbow under anesthesia, closed reduction of distal radial ulnar joint with placement of long-arm cast 09/05/2016. - Orthopedic surgery cleared for discharge. - Continue pain medications - [place] and Dilaudid IV PRN. - Miralax, Milk of Mag, Senokot bowel regimen. - Hypothyroidism - continue levothyroxine 200 mg daily - Bipolar disorder - schizophrenia - Continue Seroquel 300mg QHS - [place] 600mg Q12hrs. - Geodon 80mg BID Full code. Heparin SQ for DVT prophylaxis. Donnell Quintanilla MD Sep 09, 2016 09:09
[2016-09-09 12:20] VITALS: BP 124/76; PULSE 88; RESP 18; TEMP 97.9; O2SAT 99
--- NOTE | 2016-09-09 13:24 | HHI.PYPN ---
Subjective Remarks The patient is seen for psychiatric follow-up today, he was found eating pizza with his in a very good mood, he denies pain, distress, he denies depressive symptoms, he denies anxiety, denies psychosis, denying delusions, paranoia, ideas of reference patient is logical, coherent, relevant, he denies suicidal or homicidal ideation, he denies visual and auditory hallucinations. She reports full compliance to medications, no significant side effects. Patient is oriented 3. [place] level was reviewed, it is 1.2. Review of Systems Other No significant side effects Objective Alert: Yes [place]: Person, Place, Date Mood: Calm Affect: Euthymic Memory Intact: Recent, Remote Hallucinations: Other (none) Delusions: No Delusion Type: Other (none elicited) Suicidal: Ideation (he denies) Homicidal: Ideation (he denies) Insight/Judgement good Vitals/IOs Vital Signs Date Time Temp Pulse Resp B/P Pulse Ox O2 Delivery O2 Flow Rate FiO2 09/09/16 08:12 97.7 90 16 128/87 100 09/08/16 18:51 Room Air 09/06/16 20:42 21 Intake and Output 09/08/16 09/08/16 09/09/16 08:00 16:00 00:00 Intake Total 240 ml 720 ml 480 ml Output Total 600 ml 1350 ml Balance -360 ml 720 ml -870 ml Assessment & Plan Problem List: (1) Schizoaffective disorder, bipolar type Assessment & Plan: [place] level review, 1.2 Continue lithium 600 mg twice a day, continue Geodon 80 mg twice a day, continue Seroquel 300 mg at bedtime. ICD Code: F25.0 Assessment & Plan Estimated LOS: days Justification for Cont. Inpt. She does not meet criteria for psychiatric admission at this moment. Dariel Sanford MD Sep 09, 2016 13:24
[2016-09-09 16:20] VITALS: BP 119/81; PULSE 101; RESP 18; TEMP 96.6; O2SAT 100
[2016-09-09 20:40] VITALS: BP 116/74; PULSE 103; RESP 17; TEMP 97.8; O2SAT 98
[2016-09-09] MEDS: QUEtiapine FUMARATE 300 MG TAB PO SCH (21:08)
[2016-09-10] MEDS: LEVOTHYROXINE SODIUM 200 MCG TAB PO SCH (05:44)
[2016-09-10 08:00] VITALS: BP 115/74; PULSE 94; RESP 16; TEMP 97.4; O2SAT 98
[2016-09-10] MEDS: LITHIUM CARBONATE 300 MG CAP PO SCH ×2 (09:17→20:06)
[2016-09-10] MEDS: ZIPRASIDONE HCL 80 MG CAP PO SCH ×2 (09:17→17:45)
[2016-09-10] MEDS: PANTOPRAZOLE SOD 40 MG DELAYED RELEASE TAB PO SCH (09:17)
[2016-09-10] MEDS: POLYETHYLENE GLYCOL 17 GM PKG PO SCH (09:17)
[2016-09-10] MEDS: SODIUM CHLORIDE 0.9% FLUSH 5 ML FLUSH FLUSH SCH ×2 (09:18→20:11)
[2016-09-10 12:00] VITALS: BP 110/75; PULSE 113; RESP 16; TEMP 96.6; O2SAT 94
[2016-09-10 16:00] VITALS: BP 94/67; PULSE 93; RESP 16; TEMP 98.5; O2SAT 97
--- NOTE | 2016-09-10 16:39 | HHI.PR ---
Subjective Remarks Sitting on the chair, doing well, pain controlled, we're going to do aggressive PT until reached safe discharge Objective Vitals Vital Signs Date Time Temp Pulse Resp B/P Pulse Ox O2 Delivery O2 Flow Rate FiO2 09/10/16 12:00 96.6 113 16 110/75 94 09/10/16 08:00 97.4 94 16 115/74 98 09/09/16 20:40 97.8 103 17 116/74 98 09/09/16 18:41 Room Air I/O 09/09/16 09/09/16 09/09/16 09/10/16 09/10/16 09/10/16 07:00 15:00 23:00 07:00 15:00 23:00 Intake Total 240 ml 1080 ml 720 ml 480 ml Output Total 775 ml 1300 ml 800 ml Balance -535 ml 1080 ml -580 ml -320 ml Intake Oral 240 ml 1080 ml 720 ml 480 ml Output Urine Total 775 ml 1300 ml 800 ml # Voids 4 # Bowel Movements 0 1 2 0 Result Diagram: 09/06/16 1215 09/06/16 1215 Objective Remarks GENERAL: This is a well-nourished, well-developed patient, in no apparent distress. CARDIOVASCULAR: Regular rate and rhythm without murmurs, gallops, or rubs. RESPIRATORY: Clear to auscultation. Breath sounds equal bilaterally. No wheezes , rales, or rhonchi. GASTROINTESTINAL: Abdomen soft, non-tender, nondistended. Normal active bowel sounds MUSCULOSKELETAL: No cyanosis, or edema. NEURO: Alert & Oriented x4 to person, place, time, situation. Moves all ext x4 Procedures Closed reduction with casting and removal of exfix left elbow and DRUJ 09/05/2016. A/P Problem List: (1) Trauma ICD Code: T14.90 Status: Acute (2) Multiple fractures ICD Code: T14.8 Status: Acute (3) Hypothyroidism ICD Code: E03.9 Status: Chronic (4) Patella fracture ICD Code: S82.009A Status: Acute (5) Elbow fracture ICD Code: S42.409A Status: Acute (6) Femur fracture, right ICD Code: S72.91XA Status: Acute (7) T12 vertebral fracture ICD Code: S22.089A Status: Acute (8) Suicide attempt ICD Code: T14.91 Status: Acute (9) Pelvic fracture ICD Code: S32.9XXA Status: Acute (10) Schizoaffective disorder, bipolar type ICD Code: F25.0 Status: Chronic Assessment and Plan 09/08/16: Awaiting placement, reconsulted psychiatry for possible transfer to psych unit 09/09/16: Doing well, had a bowel movement, awaiting placement, senior case manager kindly will let us know once facility is ready to take patient 09/10/16: Stable, per senior case manager will need to continue aggressivePTuntil able to reach safe discharge point, difficulty placement A/P: This a 40-year-old gentleman with a past medical history which includes hypothyroidism, bipolar and schizophrenia. Patient is status post trauma alert on 07/12/2016 secondary to suicide attempt patient [place] bridge [place] railroad [place]. Patient sustained multiple fractures has been taken to the OR initially was in intensive care unit and intubated for airway protection as well as pain management. Patient was extubated 07/13/2016. Patient was under psychiatry service care until 09/05/2016. Patient underwent left upper ext exfix removal and closed reduction with casting. Patient was subsequently admitted under hospitalist services. - Suicide attempt 07/12/2016 - Multiple orthopedic injuries - from suicde attempt on 07/12/2016. s/p right femur IMN s/p exfix left elbow s/p ORIF left patella right patella fx nonop pelvic fxs - Left elbow fracture dislocation with retained external fixation - Left distal radial ulnar joint dislocation - s/p removal of external fixation, manipulation of left elbow under anesthesia, closed reduction of distal radial ulnar joint with placement of long-arm cast 09/05/2016. - Orthopedic surgery cleared for discharge. - Continue pain medications - [place] and Dilaudid IV PRN. - Miralax, Milk of Mag, Senokot bowel regimen. - Hypothyroidism - continue levothyroxine 200 mg daily - Bipolar disorder - schizophrenia - Continue Seroquel 300mg QHS - [place] 600mg Q12hrs. - Geodon 80mg BID Full code. Heparin SQ for DVT prophylaxis. Donnell Quintanilla MD Sep 10, 2016 16:39
[2016-09-10] MEDS: QUEtiapine FUMARATE 300 MG TAB PO SCH (20:06)
[2016-09-10 20:07] VITALS: BP 113/77; PULSE 94; RESP 16; TEMP 97.4; O2SAT 98
[2016-09-11 00:15] VITALS: BP 107/69; PULSE 102; RESP 16; TEMP 97.3; O2SAT 96
[2016-09-11] MEDS: LEVOTHYROXINE SODIUM 200 MCG TAB PO SCH (04:08)
[2016-09-11 08:00] VITALS: BP 114/71; PULSE 92; RESP 17; TEMP 97.2; O2SAT 98
[2016-09-11] MEDS: LITHIUM CARBONATE 300 MG CAP PO SCH ×2 (10:54→21:23)
[2016-09-11] MEDS: PANTOPRAZOLE SOD 40 MG DELAYED RELEASE TAB PO SCH (10:54)
[2016-09-11] MEDS: POLYETHYLENE GLYCOL 17 GM PKG PO SCH (10:54)
[2016-09-11] MEDS: ZIPRASIDONE HCL 80 MG CAP PO SCH ×2 (10:54→18:03)
[2016-09-11] MEDS: SODIUM CHLORIDE 0.9% FLUSH 5 ML FLUSH FLUSH SCH ×2 (10:55→21:24)
[2016-09-11 12:00] VITALS: BP 108/70; PULSE 97; RESP 16; TEMP 96.7; O2SAT 97
--- NOTE | 2016-09-11 13:58 | HHI.PR ---
Subjective Remarks Afebrile, laying in bed, difficulty placement, will continue with PT OT until reaching safe discharge Objective Vitals Vital Signs Date Time Temp Pulse Resp B/P Pulse Ox O2 Delivery O2 Flow Rate FiO2 09/11/16 12:00 96.7 97 16 108/70 97 09/11/16 08:00 97.2 92 17 114/71 98 09/11/16 00:15 97.3 102 16 107/69 96 09/10/16 20:07 97.4 94 16 113/77 98 09/10/16 16:00 98.5 93 16 94/67 97 I/O 09/10/16 09/10/16 09/10/16 09/11/16 09/11/16 09/11/16 07:00 15:00 23:00 07:00 15:00 23:00 Intake Total 480 ml 600 ml 480 ml Output Total 800 ml 1200 ml 700 ml 1000 ml Balance -320 ml -600 ml -220 ml -1000 ml Intake Oral 480 ml 600 ml 480 ml Output Urine Total 800 ml 1200 ml 700 ml 1000 ml # Bowel Movements 0 0 1 Objective Remarks GENERAL: This is a well-nourished, well-developed patient, in no apparent distress. CARDIOVASCULAR: Regular rate and rhythm without murmurs, gallops, or rubs. RESPIRATORY: Clear to auscultation. Breath sounds equal bilaterally. No wheezes , rales, or rhonchi. GASTROINTESTINAL: Abdomen soft, non-tender, nondistended. Normal active bowel sounds MUSCULOSKELETAL: No cyanosis, or edema. NEURO: Alert & Oriented x4 to person, place, time, situation. Moves all ext x4 Procedures Closed reduction with casting and removal of exfix left elbow and DRUJ 09/05/2016. A/P Problem List: (1) Trauma ICD Code: T14.90 Status: Acute (2) Multiple fractures ICD Code: T14.8 Status: Acute (3) Hypothyroidism ICD Code: E03.9 Status: Chronic (4) Patella fracture ICD Code: S82.009A Status: Acute (5) Elbow fracture ICD Code: S42.409A Status: Acute (6) Femur fracture, right ICD Code: S72.91XA Status: Acute (7) T12 vertebral fracture ICD Code: S22.089A Status: Acute (8) Suicide attempt ICD Code: T14.91 Status: Acute (9) Pelvic fracture ICD Code: S32.9XXA Status: Acute (10) Schizoaffective disorder, bipolar type ICD Code: F25.0 Status: Chronic Assessment and Plan 09/08/16: Awaiting placement, reconsulted psychiatry for possible transfer to psych unit 09/09/16: Doing well, had a bowel movement, awaiting placement, director case management kindly will let us know once facility is ready to take patient 09/10/16: Stable, per director case management will need to continue aggressivePTuntil able to reach safe discharge point, difficulty placement 09/11/16: No acute issue, continue PT OT A/P: This a 40-year-old gentleman with a past medical history which includes hypothyroidism, bipolar and schizophrenia. Patient is status post trauma alert on 07/12/2016 secondary to suicide attempt patient [place] bridge [place] railroad [place]. Patient sustained multiple fractures has been taken to the OR initially was in intensive care unit and intubated for airway protection as well as pain management. Patient was extubated 07/13/2016. Patient was under psychiatry service care until 09/05/2016. Patient underwent left upper ext exfix removal and closed reduction with casting. Patient was subsequently admitted under hospitalist services. - Suicide attempt 07/12/2016 - Multiple orthopedic injuries - from suicde attempt on 07/12/2016. s/p right femur IMN s/p exfix left elbow s/p ORIF left patella right patella fx nonop pelvic fxs - Left elbow fracture dislocation with retained external fixation - Left distal radial ulnar joint dislocation - s/p removal of external fixation, manipulation of left elbow under anesthesia, closed reduction of distal radial ulnar joint with placement of long-arm cast 09/05/2016. - Orthopedic surgery cleared for discharge. - Continue pain medications - [place] and Dilaudid IV PRN. - Miralax, Milk of Mag, Senokot bowel regimen. - Hypothyroidism - continue levothyroxine 200 mg daily - Bipolar disorder - schizophrenia - Continue Seroquel 300mg QHS - [place] 600mg Q12hrs. - Geodon 80mg BID Full code. Heparin SQ for DVT prophylaxis. Donnell Quintanilla MD Sep 11, 2016 13:58
[2016-09-11 16:00] VITALS: BP 118/80; PULSE 91; RESP 17; TEMP 97.2; O2SAT 97
[2016-09-11 20:49] VITALS: BP 102/76; PULSE 98; RESP 16; TEMP 98.1; O2SAT 97
[2016-09-11] MEDS: QUEtiapine FUMARATE 300 MG TAB PO SCH (21:24)
[2016-09-12 00:02] VITALS: BP 105/68; PULSE 100; RESP 16; TEMP 97.3; O2SAT 97
[2016-09-12] MEDS: LEVOTHYROXINE SODIUM 200 MCG TAB PO SCH (06:04)
--- NOTE | 2016-09-12 07:18 | PD.ORT.PN ---
Subjective Subjective Remarks POD 7 s/p closed reduction left wrist with casting s/p ORIF left patella and right femur IMN s/p right patella fx - nonop s/p lig repair with application exfix left elbow doing well. pain controlled. out of bed with therapy and progressing Objective Vitals Vital Signs Date Time Temp Pulse Resp B/P Pulse Ox O2 Delivery O2 Flow Rate FiO2 09/12/16 00:02 97.3 100 16 105/68 97 09/11/16 20:49 98.1 98 16 102/76 97 09/11/16 16:00 97.2 91 17 118/80 97 09/11/16 12:00 96.7 97 16 108/70 97 09/11/16 08:00 97.2 92 17 114/71 98 I/O 09/11/16 09/11/16 09/11/16 09/12/16 09/12/16 09/12/16 07:00 15:00 23:00 07:00 15:00 23:00 Intake Total 720 ml 960 ml 0 ml Output Total 1000 ml 900 ml 1100 ml 1200 ml Balance -1000 ml -180 ml -140 ml -1200 ml Intake Oral 720 ml 960 ml IV Total 0 ml Output Urine Total 1000 ml 900 ml 1100 ml 1200 ml # Bowel Movements 1 Objective Remarks LUE: long arm cast in place in supination. NVI distally. contractures of fingers and wrist. LLE: incision and lacerations healing without sign of infection. +CKS. NVI RLE: +CKS. minimal swelling. NVI. incisions and lacerations healing without sign of infection.; Pelvis with mild tenderness with motion of hips Assessment & Plan Assessment and Plan 1) I&D with ORIF L open Patella fx, R long intramedullary femoral nail for intertroch and fem shaft fxs, I&D L Hand with closure of traumatic wound, I&D L elbow with application of ex-fix( [place])07/12/16 2) status post radial head replacement and complex repair of left elbow fracture dislocation with hinged external fixator(Seferino) 07/15/16 Nonweightbearing left upper extremity Occupational therapy for ROM of fingers 3) Right patella fracture to be treated nonoperatively with knee immobilizer 4)Pelvic fractures --plan nonoperative treatment 5) Closed reduction with casting and removal of exfix left elbow and DRUJ - LLE: PROM 0-90. WBAT RLE: maintain knee brace. PROM 0-90. WBAT with knee brace on LUE: NWB and maintain cast. ok for platform walker RUE: WBAT. no restrictions -DVT prophylaxis -psych mgmt -CM for rehab placement now that activity level increased -ortho clear for discharge Omer Griffiths Sep 12, 2016 07:18
[2016-09-12] MEDS ORDERED: PLATMIS3 (07:19)
[2016-09-12 08:00] VITALS: BP 113/69; PULSE 86; RESP 18; TEMP 97.3; O2SAT 97
[2016-09-12] MEDS: PANTOPRAZOLE SOD 40 MG DELAYED RELEASE TAB PO SCH (08:52)
[2016-09-12] MEDS: ZIPRASIDONE HCL 80 MG CAP PO SCH ×2 (08:53→18:13)
[2016-09-12] MEDS: LITHIUM CARBONATE 300 MG CAP PO SCH ×2 (08:53→20:34)
[2016-09-12] MEDS: POLYETHYLENE GLYCOL 17 GM PKG PO SCH (08:56)
[2016-09-12] MEDS: SODIUM CHLORIDE 0.9% FLUSH 5 ML FLUSH FLUSH SCH ×2 (08:56→20:35)
--- NOTE | 2016-09-12 11:59 | HHI.PR ---
Subjective Remarks laying in bed , no pain his hr above 100 we will check electrolytes and lithium level Objective Vitals Vital Signs Date Time Temp Pulse Resp B/P Pulse Ox O2 Delivery O2 Flow Rate FiO2 09/12/16 08:00 97.3 86 18 113/69 97 09/12/16 00:02 97.3 100 16 105/68 97 09/11/16 20:49 98.1 98 16 102/76 97 09/11/16 16:00 97.2 91 17 118/80 97 09/11/16 12:00 96.7 97 16 108/70 97 I/O 09/11/16 09/11/16 09/11/16 09/12/16 09/12/16 09/12/16 07:00 15:00 23:00 07:00 15:00 23:00 Intake Total 720 ml 960 ml 0 ml Output Total 1000 ml 900 ml 1100 ml 1200 ml Balance -1000 ml -180 ml -140 ml -1200 ml Intake Oral 720 ml 960 ml IV Total 0 ml Output Urine Total 1000 ml 900 ml 1100 ml 1200 ml # Bowel Movements 1 Objective Remarks GENERAL: This is a well-nourished, well-developed patient, in no apparent distress. CARDIOVASCULAR: Regular rate and rhythm without murmurs, gallops, or rubs. RESPIRATORY: Clear to auscultation. Breath sounds equal bilaterally. No wheezes , rales, or rhonchi. GASTROINTESTINAL: Abdomen soft, non-tender, nondistended. Normal active bowel sounds MUSCULOSKELETAL: No cyanosis, or edema. NEURO: Alert & Oriented x4 to person, place, time, situation. Moves all ext x4 Procedures Closed reduction with casting and removal of exfix left elbow and DRUJ 09/05/2016. A/P Problem List: (1) Trauma ICD Code: T14.90 Status: Acute (2) Multiple fractures ICD Code: T14.8 Status: Acute (3) Hypothyroidism ICD Code: E03.9 Status: Chronic (4) Patella fracture ICD Code: S82.009A Status: Acute (5) Elbow fracture ICD Code: S42.409A Status: Acute (6) Femur fracture, right ICD Code: S72.91XA Status: Acute (7) T12 vertebral fracture ICD Code: S22.089A Status: Acute (8) Suicide attempt ICD Code: T14.91 Status: Acute (9) Pelvic fracture ICD Code: S32.9XXA Status: Acute (10) Schizoaffective disorder, bipolar type ICD Code: F25.0 Status: Chronic Assessment and Plan 09/08/16: Awaiting placement, reconsulted psychiatry for possible transfer to psych unit 09/09/16: Doing well, had a bowel movement, awaiting placement, supportive employment case manager kindly will let us know once facility is ready to take patient 09/10/16: Stable, per supportive employment case manager will need to continue aggressivePTuntil able to reach safe discharge point, difficulty placement 09/11/16: No acute issue, continue PT OT : his hr above 100 , we will check electrolytes and lithium level A/P: This a 40-year-old gentleman with a past medical history which includes hypothyroidism, bipolar and schizophrenia. Patient is status post trauma alert on 07/12/2016 secondary to suicide attempt patient jumped off a bridge [place] railroad tracks. Patient sustained multiple fractures has been taken to the OR initially was in intensive care unit and intubated for airway protection as well as pain management. Patient was extubated 07/13/2016. Patient was under psychiatry service care until 09/05/2016. Patient underwent left upper ext exfix removal and closed reduction with casting. Patient was subsequently admitted under hospitalist services. - Suicide attempt 07/12/2016 - Multiple orthopedic injuries - from suicde attempt on 07/12/2016. s/p right femur IMN s/p exfix left elbow s/p ORIF left patella right patella fx nonop pelvic fxs - Left elbow fracture dislocation with retained external fixation - Left distal radial ulnar joint dislocation - s/p removal of external fixation, manipulation of left elbow under anesthesia, closed reduction of distal radial ulnar joint with placement of long-arm cast 09/05/2016. - Orthopedic surgery cleared for discharge. - Continue pain medications - [place] and Dilaudid IV PRN. - Miralax, Milk of Mag, Senokot bowel regimen. - Hypothyroidism - continue levothyroxine 200 mg daily - Bipolar disorder - schizophrenia - Continue Seroquel 300mg QHS - [place] 600mg Q12hrs. - Geodon 80mg BID Full code. Heparin SQ for DVT prophylaxis. Donnell Quintanilla MD Sep 12, 2016 11:58
[2016-09-12 12:00] VITALS: BP 108/71; PULSE 96; RESP 18; TEMP 97.9; O2SAT 98
[2016-09-12 12:50] LABS: AUTOMATED NEUTROPHIL # 3.7 TH/MM3 (1.8-7.7); BASOPHIL # 0.1 TH/MM3 (0-0.2); BASOPHIL % 1.1 % (0.0-2.0); EOSINOPHIL # 0.4 TH/MM3 (0-0.4); EOSINOPHIL % 6.1 % (0.0-4.0); HEMATOCRIT 39.3 % (39.0-51.0); HEMO FLAGS DIFF FINAL; LYMPH % 23.6 % (9.0-44.0); LYMPHOCYTE # 1.4 TH/MM3 (1.0-4.8); MEAN CELL VOLUME 87.2 FL (80.0-100.0); MEAN CORPUSCULAR HEMOGLOBIN 29.1 PG (27.0-34.0); MEAN CORPUSCULAR HGB CONC 33.4 % (32.0-36.0); MONO % 6.5 % (0.0-8.0); NEUT % 62.7 % (16.0-70.0); PLATELET COUNT 234 TH/MM3 (150-450); RED BLOOD COUNT 4.51 MIL/MM3 (4.50-5.90); RED CELL DISTRIBUTION WIDTH 14.7 % (11.6-17.2); WHITE BLOOD COUNT 5.8 TH/MM3 (4.0-11.0)
[2016-09-12 13:16] LABS: BICARBONATE 26.3 MEQ/L (21.0-32.0); POTASSIUM 4.2 MEQ/L (3.5-5.1)
[2016-09-12 16:00] VITALS: BP 114/79; PULSE 106; RESP 19; TEMP 97.4; O2SAT 97
[2016-09-12] MEDS: QUEtiapine FUMARATE 300 MG TAB PO SCH (20:34)
[2016-09-12 20:40] VITALS: BP 112/73; PULSE 102; RESP 16; TEMP 98.2; O2SAT 96
[2016-09-13 00:05] VITALS: BP 89/76; PULSE 98; RESP 16; TEMP 97.1; O2SAT 98
[2016-09-13 04:15] VITALS: BP 100/60
[2016-09-13] MEDS: LEVOTHYROXINE SODIUM 200 MCG TAB PO SCH (04:23)
[2016-09-13 08:00] VITALS: BP 111/69; PULSE 83; RESP 18; TEMP 97.2; O2SAT 98
[2016-09-13] MEDS: POLYETHYLENE GLYCOL 17 GM PKG PO SCH (09:00)
[2016-09-13] MEDS: ZIPRASIDONE HCL 80 MG CAP PO SCH ×2 (09:25→17:28)
[2016-09-13] MEDS: LITHIUM CARBONATE 300 MG CAP PO SCH ×2 (09:25→21:10)
[2016-09-13] MEDS: PANTOPRAZOLE SOD 40 MG DELAYED RELEASE TAB PO SCH (09:25)
[2016-09-13] MEDS: SODIUM CHLORIDE 0.9% FLUSH 5 ML FLUSH FLUSH SCH ×2 (09:26→21:10)
[2016-09-13 12:00] VITALS: BP 110/72; PULSE 103; RESP 18; TEMP 95.9; O2SAT 100
--- NOTE | 2016-09-13 14:35 | HHI.PR ---
Subjective Remarks Follow up on multiple bone fractures due to suicide attempt Patient stable, however we had difficulty placement, currently plan is to continue aggressive physical therapy until able to reach safe discharge Objective Vitals Vital Signs Date Time Temp Pulse Resp B/P Pulse Ox O2 Delivery O2 Flow Rate FiO2 09/13/16 12:00 95.9 103 18 110/72 100 09/13/16 08:00 97.2 83 18 111/69 98 09/13/16 04:15 100/60 09/13/16 00:05 97.1 98 16 89/76 98 09/12/16 20:40 98.2 102 16 112/73 96 09/12/16 16:00 97.4 106 19 114/79 97 I/O 09/12/16 09/12/16 09/12/16 09/13/16 09/13/16 09/13/16 07:00 15:00 23:00 07:00 15:00 23:00 Intake Total 0 ml 1200 ml 240 ml Output Total 1200 ml 900 ml 1250 ml Balance -1200 ml 300 ml -1010 ml Intake Oral 1200 ml 240 ml IV Total 0 ml Output Urine Total 1200 ml 900 ml 1250 ml # Voids 1 # Bowel Movements 1 0 Result Diagram: 09/12/16 1237 09/12/16 1237 Objective Remarks GENERAL: This is a well-nourished, well-developed patient, in no apparent distress. CARDIOVASCULAR: Regular rate and rhythm without murmurs, gallops, or rubs. RESPIRATORY: Clear to auscultation. Breath sounds equal bilaterally. No wheezes , rales, or rhonchi. GASTROINTESTINAL: Abdomen soft, non-tender, nondistended. Normal active bowel sounds MUSCULOSKELETAL: No cyanosis, or edema. NEURO: Alert & Oriented x4 to person, place, time, situation. Moves all ext x4 Procedures Closed reduction with casting and removal of exfix left elbow and DRUJ 09/05/2016. A/P Problem List: (1) Trauma ICD Code: T14.90 Status: Acute (2) Multiple fractures ICD Code: T14.8 Status: Acute (3) Hypothyroidism ICD Code: E03.9 Status: Chronic (4) Patella fracture ICD Code: S82.009A Status: Acute (5) Elbow fracture ICD Code: S42.409A Status: Acute (6) Femur fracture, right ICD Code: S72.91XA Status: Acute (7) T12 vertebral fracture ICD Code: S22.089A Status: Acute (8) Suicide attempt ICD Code: T14.91 Status: Acute (9) Pelvic fracture ICD Code: S32.9XXA Status: Acute (10) Schizoaffective disorder, bipolar type ICD Code: F25.0 Status: Chronic Assessment and Plan : his hr above 100 , we will check electrolytes and lithium level A/P: This a 40-year-old gentleman with a past medical history which includes hypothyroidism, bipolar and schizophrenia. Patient is status post trauma alert on 07/12/2016 secondary to suicide attempt patient jumped off a bridge onto railroad tracks. Patient sustained multiple fractures has been taken to the OR initially was in intensive care unit and intubated for airway protection as well as pain management. Patient was extubated 07/13/2016. Patient was under psychiatry service care until 09/05/2016. Patient underwent left upper ext exfix removal and closed reduction with casting. Patient was subsequently admitted under hospitalist services. - Suicide attempt 07/12/2016 - Multiple orthopedic injuries - from suicde attempt on 07/12/2016. s/p right femur IMN s/p exfix left elbow s/p ORIF left patella right patella fx nonop pelvic fxs - Left elbow fracture dislocation with retained external fixation - Left distal radial ulnar joint dislocation - s/p removal of external fixation, manipulation of left elbow under anesthesia, closed reduction of distal radial ulnar joint with placement of long-arm cast 09/05/2016. - Orthopedic surgery cleared for discharge. - Continue pain medications - [place] and Dilaudid IV PRN. - Miralax, Milk of Mag, Senokot bowel regimen. - Hypothyroidism - continue levothyroxine 200 mg daily -Tachycardia: Patient reported no pain, lithium level within normal limits, will check TSH - Bipolar disorder - schizophrenia - Continue Seroquel 300mg QHS - [place] 600mg Q12hrs. - Geodon 80mg BID Full code. Heparin SQ for DVT prophylaxis. Donnell Quintanilla MD Sep 13, 2016 14:35
[2016-09-13 16:00] VITALS: BP 111/71; PULSE 100; RESP 18; TEMP 97.8; O2SAT 98
[2016-09-13 19:28] VITALS: BP 107/69; PULSE 99; RESP 18; TEMP 98.2; O2SAT 98
[2016-09-13] MEDS ORDERED: ENOXAPARIN SODIUM 40 MG/0.4 ML SYRINGE SQ SCH (21:00)
[2016-09-13] MEDS: QUEtiapine FUMARATE 300 MG TAB PO SCH (21:10)
[2016-09-13] MEDS: RIVAROXABAN 10 MG TAB PO SCH (22:21)
[2016-09-14] VITALS: BP 109/71; PULSE 82; RESP 16; TEMP 96.5; O2SAT 98
[2016-09-14] MEDS: LEVOTHYROXINE SODIUM 200 MCG TAB PO SCH (05:44)
[2016-09-14 08:00] VITALS: BP 110/71; PULSE 92; RESP 18; TEMP 96.5; O2SAT 96
[2016-09-14] MEDS: POLYETHYLENE GLYCOL 17 GM PKG PO SCH ×2 (08:13→09:00)
[2016-09-14] MEDS: RIVAROXABAN 10 MG TAB PO SCH (08:13)
[2016-09-14] MEDS: ZIPRASIDONE HCL 80 MG CAP PO SCH ×2 (08:13→18:02)
[2016-09-14] MEDS: SODIUM CHLORIDE 0.9% FLUSH 5 ML FLUSH FLUSH SCH ×2 (08:17→20:23)
[2016-09-14] MEDS: LITHIUM CARBONATE 300 MG CAP PO SCH ×2 (08:18→20:22)
[2016-09-14] MEDS: PANTOPRAZOLE SOD 40 MG DELAYED RELEASE TAB PO SCH (08:18)
--- NOTE | 2016-09-14 09:45 | HHI.PR ---
Subjective Remarks Patient seen for follow-up of trauma resulting in multiple bone fractures after suicide attempt. Patient reports that he is feeling okay. His pain is controlled. Does feel like he is getting stronger. Objective Vitals Vital Signs Date Time Temp Pulse Resp B/P Pulse Ox O2 Delivery O2 Flow Rate FiO2 09/14/16 08:00 96.5 92 18 110/71 96 09/14/16 06:35 Room Air 09/14/16 00:00 96.5 82 16 109/71 98 09/13/16 19:28 98.2 99 18 107/69 98 09/13/16 18:42 Room Air 09/13/16 16:00 97.8 100 18 111/71 98 09/13/16 12:00 95.9 103 18 110/72 100 I/O 09/13/16 09/13/16 09/13/16 09/14/16 09/14/16 09/14/16 07:00 15:00 23:00 07:00 15:00 23:00 Intake Total 240 ml 720 ml 240 ml 120 ml Output Total 1250 ml 700 ml 700 ml 700 ml Balance -1010 ml 20 ml -460 ml -580 ml Intake Oral 240 ml 720 ml 240 ml 120 ml Output Urine Total 1250 ml 700 ml 700 ml 700 ml # Bowel Movements 0 0 1 0 Result Diagram: 09/12/16 1237 09/12/16 1237 Objective Remarks GENERAL: Patient is in no apparent distress. CARDIOVASCULAR: Normal rate and regular rhythm without murmurs, gallops, or rubs. RESPIRATORY: Good respiratory efforts. Breath sounds equal and clear to auscultation bilaterally. GASTROINTESTINAL: Abdomen soft, non-tender, non-distended. Normal active bowel sounds MUSCULOSKELETAL: Left upper extremity in a cast. Left knee with a healing scar. The right knee is immobilized. Neurovascularly intact distally at the toes and fingers. NEURO: Alert & Oriented x4 to person, place, time, situation. Moves all ext x4 PSYCH: Somewhat flat affect. Procedures Closed reduction with casting and removal of exfix left elbow and DRUJ 09/05/2016. A/P Problem List: (1) Trauma ICD Code: T14.90 Status: Acute (2) Multiple fractures ICD Code: T14.8 Status: Acute (3) Hypothyroidism ICD Code: E03.9 Status: Chronic (4) Patella fracture ICD Code: S82.009A Status: Acute (5) Elbow fracture ICD Code: S42.409A Status: Acute (6) Femur fracture, right ICD Code: S72.91XA Status: Acute (7) T12 vertebral fracture ICD Code: S22.089A Status: Acute (8) Suicide attempt ICD Code: T14.91 Status: Acute (9) Pelvic fracture ICD Code: S32.9XXA Status: Acute (10) Schizoaffective disorder, bipolar type ICD Code: F25.0 Status: Chronic Assessment and Plan 40-year-old gentleman with a past medical history which includes hypothyroidism, bipolar and schizophrenia. Patient is status post trauma alert on 07/12/2016 secondary to suicide attempt after he jumped off a bridge onto railroad tracks. Patient sustained multiple fractures and was taken to the OR initially was in intensive care unit and intubated for airway protection as well as pain management. Patient was extubated 07/13/2016. Patient was under psychiatry service care until 09/05/2016. Patient underwent left upper ext exfix removal and closed reduction with casting. Patient was subsequently admitted under hospitalist service for further care. - Suicide attempt 07/12/2016- Bipolar disorder/schizophrenia: Appreciate psychiatry following. - Continue Seroquel 300mg QHS - [place] 600mg Q12hrs. - Geodon 80mg BID - Multiple orthopedic injuries - from suicide attempt on 07/12/2016. Orthopedic surgery following s/p right femur IMN s/p exfix left elbow s/p ORIF left patella right patella fx nonop pelvic fxs Left elbow fracture dislocation with retained external fixation Left distal radial ulnar joint dislocation - s/p removal of external fixation, manipulation of left elbow under anesthesia, closed reduction of distal radial ulnar joint with placement of long-arm cast 09/05/2016. - Orthopedic surgery cleared for discharge. - Continue pain medications - [place] and Dilaudid IV PRN. - Miralax, Milk of Mag, Senokot bowel regimen. Hypothyroidism - continue levothyroxine 200 mg daily Intermittent Tachycardia: Patient reported no pain, lithium level and TSH within normal limits. May be due to deconditioning. Continue to monitor. GI prophylaxis: Stool softener PRN constipation. DVT PPx: On Xarelto. Discharge Planning Placement issues. Case management following. Plan is for him to get strong enough to go home with home health and physical therapy. Elvin Fuller MD Sep 14, 2016 09:45
[2016-09-14 12:00] VITALS: BP 116/82; PULSE 103; RESP 18; TEMP 96.8; O2SAT 98
[2016-09-14 16:00] VITALS: BP 101/71; PULSE 95; RESP 18; TEMP 98; O2SAT 98
[2016-09-14] MEDS: QUEtiapine FUMARATE 300 MG TAB PO SCH (20:22)
[2016-09-14 20:30] VITALS: BP 113/76; PULSE 100; RESP 16; TEMP 97.2; O2SAT 98
[2016-09-14 23:50] VITALS: BP 100/62; PULSE 108; RESP 17; TEMP 97; O2SAT 96
[2016-09-15] MEDS: LEVOTHYROXINE SODIUM 200 MCG TAB PO SCH (06:36)
[2016-09-15 08:00] VITALS: BP 100/70; PULSE 86; RESP 16; TEMP 96.7; O2SAT 96
[2016-09-15] MEDS: SODIUM CHLORIDE 0.9% FLUSH 5 ML FLUSH FLUSH SCH ×2 (09:00→21:00)
[2016-09-15] MEDS: POLYETHYLENE GLYCOL 17 GM PKG PO SCH (09:00)
[2016-09-15] MEDS: PANTOPRAZOLE SOD 40 MG DELAYED RELEASE TAB PO SCH (09:07)
[2016-09-15] MEDS: ZIPRASIDONE HCL 80 MG CAP PO SCH ×2 (09:07→19:15)
[2016-09-15] MEDS: RIVAROXABAN 10 MG TAB PO SCH (09:07)
[2016-09-15] MEDS: LITHIUM CARBONATE 300 MG CAP PO SCH ×2 (09:07→21:00)
[2016-09-15 12:00] VITALS: BP 111/75; PULSE 100; RESP 18; TEMP 96.9; O2SAT 98
[2016-09-15 16:00] VITALS: BP 109/77; PULSE 95; RESP 16; TEMP 97.8; O2SAT 97
--- NOTE | 2016-09-15 16:13 | HHI.PR ---
Subjective Remarks Patient seen for follow-up of trauma resulting in multiple bone fractures after suicide attempt. Patient reports that he is feeling okay. Pain is controlled. He reports that his mood is okay. Denies depression. Objective Vitals Vital Signs Date Time Temp Pulse Resp B/P Pulse Ox O2 Delivery O2 Flow Rate FiO2 09/15/16 12:00 96.9 100 18 111/75 98 09/15/16 08:00 96.7 86 16 100/70 96 09/14/16 23:50 97.0 108 17 100/62 96 09/14/16 20:30 97.2 100 16 113/76 98 09/14/16 19:00 Room Air I/O 09/14/16 09/14/16 09/14/16 09/15/16 09/15/16 09/15/16 07:00 15:00 23:00 07:00 15:00 23:00 Intake Total 120 ml 960 ml 1020 ml 960 ml Output Total 700 ml 1200 ml 700 ml 700 ml Balance -580 ml -240 ml 320 ml 260 ml Intake Oral 120 ml 960 ml 1020 ml 960 ml Output Urine Total 700 ml 1200 ml 700 ml 700 ml # Voids 0 # Bowel Movements 0 0 1 0 Result Diagram: 09/12/16 1237 09/12/16 1237 Objective Remarks GENERAL: Patient is in no apparent distress. CARDIOVASCULAR: Normal rate and regular rhythm without murmurs, gallops, or rubs. RESPIRATORY: Good respiratory efforts. Breath sounds equal and clear to auscultation bilaterally. GASTROINTESTINAL: Abdomen soft, non-tender, non-distended. Normal active bowel sounds MUSCULOSKELETAL: Left upper extremity in a cast. Left knee with a healing scar. The right knee is immobilized. Neurovascularly intact distally at the toes and fingers. NEURO: Alert & Oriented x4 to person, place, time, situation. Moves all ext x4 PSYCH: Somewhat flat affect. Procedures Closed reduction with casting and removal of exfix left elbow and DRUJ 09/05/2016. A/P Problem List: (1) Trauma ICD Code: T14.90 Status: Acute (2) Multiple fractures ICD Code: T14.8 Status: Acute (3) Hypothyroidism ICD Code: E03.9 Status: Chronic (4) Patella fracture ICD Code: S82.009A Status: Acute (5) Elbow fracture ICD Code: S42.409A Status: Acute (6) Femur fracture, right ICD Code: S72.91XA Status: Acute (7) T12 vertebral fracture ICD Code: S22.089A Status: Acute (8) Suicide attempt ICD Code: T14.91 Status: Acute (9) Pelvic fracture ICD Code: S32.9XXA Status: Acute (10) Schizoaffective disorder, bipolar type ICD Code: F25.0 Status: Chronic Assessment and Plan 40-year-old gentleman with a past medical history which includes hypothyroidism, bipolar and schizophrenia. Patient is status post trauma alert on 07/12/2016 secondary to suicide attempt after he jumped off a bridge onto railroad tracks. Patient sustained multiple fractures and was taken to the OR initially was in intensive care unit and intubated for airway protection as well as pain management. Patient was extubated 07/13/2016. Patient was under psychiatry service care until 09/05/2016. Patient underwent left upper ext exfix removal and closed reduction with casting. Patient was subsequently admitted under hospitalist service for further care. - Suicide attempt 07/12/2016- Bipolar disorder/schizophrenia: Appreciate psychiatry following. - Continue Seroquel 300mg QHS - [place] 600mg Q12hrs. - Geodon 80mg BID - Multiple orthopedic injuries - from suicide attempt on 07/12/2016. Orthopedic surgery following s/p right femur IMN s/p exfix left elbow s/p ORIF left patella right patella fx nonop pelvic fxs Left elbow fracture dislocation with retained external fixation Left distal radial ulnar joint dislocation - s/p removal of external fixation, manipulation of left elbow under anesthesia, closed reduction of distal radial ulnar joint with placement of long-arm cast 09/05/2016. - Orthopedic surgery cleared for discharge. - Continue pain medications - [place] PRN. - Miralax, Milk of Mag, Senokot bowel regimen. - Patient cleared by orthopedics. Hypothyroidism - continue levothyroxine 200 mg daily Intermittent Tachycardia: Patient reported no pain, lithium level and TSH within normal limits. May be due to deconditioning. Continue to monitor. GI prophylaxis: Stool softener PRN constipation. DVT PPx: On Xarelto. Discharge Planning Placement issues. Okay to transfer to [place] to continue physical therapy until he is strong enough to go home. Elvin Fuller MD Sep 15, 2016 16:13
[2016-09-15 20:30] VITALS: BP 112/74; PULSE 96; RESP 16; TEMP 97.3; O2SAT 97
[2016-09-15] MEDS: QUEtiapine FUMARATE 300 MG TAB PO SCH (21:00)
[2016-09-16] MEDS: LEVOTHYROXINE SODIUM 200 MCG TAB PO SCH (05:11)
[2016-09-16 07:38] VITALS: BP 109/71; PULSE 88; RESP 16; TEMP 95.7; O2SAT 97
[2016-09-16] MEDS: LITHIUM CARBONATE 300 MG CAP PO SCH ×2 (08:23→22:15)
[2016-09-16] MEDS: PANTOPRAZOLE SOD 40 MG DELAYED RELEASE TAB PO SCH (08:23)
[2016-09-16] MEDS: RIVAROXABAN 10 MG TAB PO SCH (08:23)
[2016-09-16] MEDS: ZIPRASIDONE HCL 80 MG CAP PO SCH ×2 (08:23→17:27)
[2016-09-16] MEDS: SODIUM CHLORIDE 0.9% FLUSH 5 ML FLUSH FLUSH SCH ×2 (08:24→22:18)
[2016-09-16] MEDS: POLYETHYLENE GLYCOL 17 GM PKG PO SCH (08:24)
[2016-09-16 11:38] VITALS: BP 120/73; PULSE 100; RESP 16; TEMP 96.1; O2SAT 98
--- NOTE | 2016-09-16 13:48 | HHI.PR ---
Subjective Remarks Patient reports that he is feeling okay. He used a walker with the help of physical therapy today. Pain is controlled. Objective Vitals Vital Signs Date Time Temp Pulse Resp B/P Pulse Ox O2 Delivery O2 Flow Rate FiO2 09/16/16 07:38 95.7 88 16 109/71 97 09/15/16 20:30 97.3 96 16 112/74 97 09/15/16 16:00 97.8 95 16 109/77 97 I/O 09/15/16 09/15/16 09/15/16 09/16/16 09/16/16 09/16/16 07:00 15:00 23:00 07:00 15:00 23:00 Intake Total 960 ml 720 ml 720 ml 480 ml Output Total 700 ml 900 ml 1650 ml 1000 ml Balance 260 ml -180 ml -930 ml -520 ml Intake Oral 960 ml 720 ml 720 ml 480 ml Output Urine Total 700 ml 900 ml 1650 ml 1000 ml # Voids 1 1 # Bowel Movements 0 1 0 Result Diagram: 09/12/16 1237 09/12/16 1237 Objective Remarks GENERAL: Patient is awake in no apparent distress. CARDIOVASCULAR: Normal rate and regular rhythm without murmurs, gallops, or rubs. RESPIRATORY: Good respiratory efforts. Breath sounds equal and clear to auscultation bilaterally. GASTROINTESTINAL: Abdomen soft, non-tender, non-distended. Normal active bowel sounds MUSCULOSKELETAL: Left upper extremity in a cast. Left knee with a healing scar. The right knee is immobilized. Neurovascularly intact distally at the toes and fingers. NEURO: Alert & Oriented x4 to person, place, time, situation. Moves all ext x4 PSYCH: Somewhat flat affect. Procedures Closed reduction with casting and removal of exfix left elbow and DRUJ 09/05/2016. A/P Problem List: (1) Trauma ICD Code: T14.90 Status: Acute (2) Multiple fractures ICD Code: T14.8 Status: Acute (3) Hypothyroidism ICD Code: E03.9 Status: Chronic (4) Patella fracture ICD Code: S82.009A Status: Acute (5) Elbow fracture ICD Code: S42.409A Status: Acute (6) Femur fracture, right ICD Code: S72.91XA Status: Acute (7) T12 vertebral fracture ICD Code: S22.089A Status: Acute (8) Suicide attempt ICD Code: T14.91 Status: Acute (9) Pelvic fracture ICD Code: S32.9XXA Status: Acute (10) Schizoaffective disorder, bipolar type ICD Code: F25.0 Status: Chronic Assessment and Plan 40-year-old gentleman with a past medical history which includes hypothyroidism, bipolar and schizophrenia. Patient is status post trauma alert on 07/12/2016 secondary to suicide attempt after he jumped off a bridge onto railroad tracks. Patient sustained multiple fractures and was taken to the OR initially was in intensive care unit and intubated for airway protection as well as pain management. Patient was extubated 07/13/2016. Patient was under psychiatry service care until 09/05/2016. Patient underwent left upper ext exfix removal and closed reduction with casting. Patient was subsequently admitted under hospitalist service for further care. - Suicide attempt 07/12/2016- Bipolar disorder/schizophrenia: Psychiatry following. - Continue Seroquel 300mg QHS - [place] 600mg Q12hrs. - Geodon 80mg BID - Multiple orthopedic injuries - from suicide attempt on 07/12/2016. Orthopedic surgery followed s/p right femur IMN s/p exfix left elbow s/p ORIF left patella right patella fx nonop pelvic fxs Left elbow fracture dislocation with retained external fixation Left distal radial ulnar joint dislocation - s/p removal of external fixation, manipulation of left elbow under anesthesia, closed reduction of distal radial ulnar joint with placement of long-arm cast 09/05/2016. - Orthopedic surgery cleared for discharge. - Continue pain medications - [place] PRN. - Miralax, Milk of Mag, Senokot bowel regimen. - Patient cleared by orthopedics. Hypothyroidism - continue levothyroxine 200 mg daily Intermittent Tachycardia: Patient reported no pain, lithium level and TSH within normal limits. May be due to deconditioning. Continue to monitor. GI prophylaxis: Stool softener PRN constipation. DVT PPx: On Xarelto. Discharge Planning Placement issues. Okay to transfer to [place] if needed to continue physical therapy until he is strong enough to go home. Previously discussed with Dr. Love. Elvin Fuller MD Sep 16, 2016 13:48
[2016-09-16 17:05] VITALS: BP 101/62; PULSE 92; RESP 16; TEMP 96.8; O2SAT 98
[2016-09-16 20:30] VITALS: BP 106/74; PULSE 94; RESP 16; TEMP 96.8; O2SAT 99
[2016-09-16] MEDS: QUEtiapine FUMARATE 300 MG TAB PO SCH (22:15)
[2016-09-17] MEDS: LEVOTHYROXINE SODIUM 200 MCG TAB PO SCH (06:44)
[2016-09-17 07:46] VITALS: BP 104/70; PULSE 86; RESP 16; TEMP 96.2; O2SAT 97
[2016-09-17] MEDS: LITHIUM CARBONATE 300 MG CAP PO SCH ×2 (09:33→21:43)
[2016-09-17] MEDS: RIVAROXABAN 10 MG TAB PO SCH (09:34)
[2016-09-17] MEDS: SODIUM CHLORIDE 0.9% FLUSH 5 ML FLUSH FLUSH SCH ×2 (09:34→21:44)
[2016-09-17] MEDS: ZIPRASIDONE HCL 80 MG CAP PO SCH ×2 (09:34→17:11)
[2016-09-17] MEDS: POLYETHYLENE GLYCOL 17 GM PKG PO SCH (09:34)
[2016-09-17] MEDS: PANTOPRAZOLE SOD 40 MG DELAYED RELEASE TAB PO SCH (09:34)
--- NOTE | 2016-09-17 10:57 | HHI.PR ---
Subjective Remarks Patient reports that he is feeling better and stronger. Pain is controlled. Agreeable to going to [facility]. Objective Vitals Vital Signs Date Time Temp Pulse Resp B/P Pulse Ox O2 Delivery O2 Flow Rate FiO2 09/17/16 07:46 96.2 86 16 104/70 97 09/16/16 20:30 96.8 94 16 106/74 99 09/16/16 17:05 96.8 92 16 101/62 98 09/16/16 11:38 96.1 100 16 120/73 98 I/O 09/16/16 09/16/16 09/16/16 09/17/16 09/17/16 09/17/16 07:00 15:00 23:00 07:00 15:00 23:00 Intake Total 480 ml 960 ml 720 ml 480 ml Output Total 1000 ml 1600 ml 1400 ml 750 ml Balance -520 ml -640 ml -680 ml -270 ml Intake Oral 480 ml 960 ml 720 ml 480 ml Output Urine Total 1000 ml 1600 ml 1400 ml 750 ml # Bowel Movements 0 1 0 Objective Remarks GENERAL: Patient is awake in no apparent distress. CARDIOVASCULAR: Normal rate and regular rhythm without murmurs, gallops, or rubs. RESPIRATORY: Good respiratory efforts. Breath sounds equal and clear to auscultation bilaterally. GASTROINTESTINAL: Abdomen soft, non-tender, non-distended. Normal active bowel sounds MUSCULOSKELETAL: Left upper extremity in a cast. Left knee with a healing scar. The right knee is immobilized. Neurovascularly intact distally at the toes and fingers. NEURO: Alert & Oriented x4 to person, place, time, situation. Moves all ext x4 PSYCH: Appropriate mood and affect. Procedures Closed reduction with casting and removal of exfix left elbow and DRUJ 09/05/2016. A/P Problem List: (1) Trauma ICD Code: T14.90 Status: Acute (2) Multiple fractures ICD Code: T14.8 Status: Acute (3) Hypothyroidism ICD Code: E03.9 Status: Chronic (4) Patella fracture ICD Code: S82.009A Status: Acute (5) Elbow fracture ICD Code: S42.409A Status: Acute (6) Femur fracture, right ICD Code: S72.91XA Status: Acute (7) T12 vertebral fracture ICD Code: S22.089A Status: Acute (8) Suicide attempt ICD Code: T14.91 Status: Acute (9) Pelvic fracture ICD Code: S32.9XXA Status: Acute (10) Schizoaffective disorder, bipolar type ICD Code: F25.0 Status: Chronic Assessment and Plan 40-year-old gentleman with a past medical history which includes hypothyroidism, bipolar and schizophrenia. Patient is status post trauma alert on 07/12/2016 secondary to suicide attempt after he jumped off a bridge [place] railroad tracks. Patient sustained multiple fractures and was taken to the OR initially was in intensive care unit and intubated for airway protection as well as pain management. Patient was extubated 07/13/2016. Patient was under psychiatry service care until 09/05/2016. Patient underwent left upper ext exfix removal and closed reduction with casting. Patient was subsequently admitted under hospitalist service for further care. - Suicide attempt 07/12/2016- Bipolar disorder/schizophrenia: Psychiatry following. - Continue Seroquel 300mg QHS - [facility] 600mg Q12hrs. - Geodon 80mg BID - Multiple orthopedic injuries - from suicide attempt on 07/12/2016. Orthopedic surgery followed s/p right femur IMN s/p exfix left elbow s/p ORIF left patella right patella fx nonop pelvic fxs Left elbow fracture dislocation with retained external fixation Left distal radial ulnar joint dislocation - s/p removal of external fixation, manipulation of left elbow under anesthesia, closed reduction of distal radial ulnar joint with placement of long-arm cast 09/05/2016. - Orthopedic surgery cleared for discharge. - Continue pain medications - [place] PRN. - Miralax, Milk of Mag, Senokot bowel regimen. - Patient cleared by orthopedics. Hypothyroidism - continue levothyroxine 200 mg daily Intermittent Tachycardia: Patient reported no pain, lithium level and TSH within normal limits. May be due to deconditioning. Continue to monitor. GI prophylaxis: Stool softener PRN constipation. DVT PPx: On Xarelto. Discharge Planning Placement issues. Patient has x-ray of the knee ordered this morning by orthopedics. Discussed with RN, once orthopedics reviewed the x-ray and give the okay the patient can be transferred to [place] if needed to continue physical therapy until he is strong enough to go home. Previously discussed with Dr. Love. Elvin Fuller MD Sep 17, 2016 10:57
--- NOTE | 2016-09-17 12:00 | RADRPT ---
EXAM DATE/TIME: 09/17/2016 09:50 [facility] COMPARISON: KNEE LEFT LTD (1 OR 2VWS), September 03, 2016, 9:48. INDICATIONS : Left knee pain. Evaluate left knee fracture. MEDICAL HISTORY : None. SURGICAL HISTORY : ORIF left patella. ENCOUNTER: Subsequent ACUITY: 2 months PAIN SCORE: 4/10 LOCATION: Left knee. FINDINGS: Three screws are seen through the patella successfully reducing the previously seen fracture. There is a nondisplaced fracture seen at the proximal fibula. The knee joint is normally aligned. There i s a minimal effusion. There is soft tissue swelling seen anteriorly in the pre-patellar soft tissues . CONCLUSION: 1. Surgical hardware again seen at the patella. 2. Nondisplaced fracture at the proximal fibula. This was present previously. Moses Miramontes MD on September 17, 2016 at 11:51 Board Certified Radiologist. This report was verified electronically.
--- NOTE | 2016-09-17 12:02 | RADRPT ---
EXAM DATE/TIME: 09/17/2016 09:52 [facility] COMPARISON: FEMUR RIGHT (AP & LAT/2VWS), September 03, 2016, 9:42. KNEE RIGHT LTD (1 OR 2 VWS), September 03, 2016, 9:54 . INDICATIONS : Right knee pain. Evaluate right knee fracture. MEDICAL HISTORY : None. SURGICAL HISTORY : ORIF right femur. ENCOUNTER: Subsequent ACUITY: 2 months PAIN SCORE: 4/10 LOCATION: Right knee. FINDINGS: There is an intramedullary gregg seen at the distal femoral shaft. Again there is deformity from fract uring at the mid and inferior patella. There also appears to be some lucency seen through the latera l distal femur involving the lateral condyle. CONCLUSION: Persistent fracture deformities as described above. Moses Miramontes MD on September 17, 2016 at 11:53 Board Certified Radiologist. This report was verified electronically.
[2016-09-17 12:04] VITALS: BP 109/79; PULSE 99; RESP 16; TEMP 97.1; O2SAT 99
[2016-09-17 14:00] VITALS: BP 115/84; PULSE 95; RESP 20; TEMP 96.2; O2SAT 98
[2016-09-17 14:45] VITALS: BP 110/70; PULSE 80; RESP 18; TEMP 97; O2SAT 98
[2016-09-17 20:00] VITALS: BP 101/73; PULSE 98; RESP 16; TEMP 96.6; O2SAT 96
[2016-09-17] MEDS: QUEtiapine FUMARATE 300 MG TAB PO SCH (21:43)
[2016-09-18] MEDS: LEVOTHYROXINE SODIUM 200 MCG TAB PO SCH (06:05)
[2016-09-18 08:00] VITALS: BP 109/72; PULSE 91; RESP 20; TEMP 95.6; O2SAT 98
[2016-09-18] MEDS: POLYETHYLENE GLYCOL 17 GM PKG PO SCH (09:00)
[2016-09-18] MEDS: LITHIUM CARBONATE 300 MG CAP PO SCH (09:00)
[2016-09-18] MEDS: SODIUM CHLORIDE 0.9% FLUSH 5 ML FLUSH FLUSH SCH (09:00)
[2016-09-18] MEDS: ZIPRASIDONE HCL 80 MG CAP PO SCH ×2 (09:00→17:54)
[2016-09-18] MEDS: PANTOPRAZOLE SOD 40 MG DELAYED RELEASE TAB PO SCH (09:27)
[2016-09-18] MEDS: RIVAROXABAN 10 MG TAB PO SCH (09:27)
--- NOTE | 2016-09-18 15:39 | HHI.PR ---
Subjective Remarks 40-year-old male who originally came to the hospital because of attempted suicidal attempt by jumping off a bridge onto railroad tracks. Patient was really taken the OR by Dr. Gentile and performed multiple orthopedic injuries to include left elbow fracture, dislocation with retained internal fixation, left distal radioulnar joint dislocation, right femur fracture, left patellar fracture, right patellar fracture, nonoperative pelvic fracture. Patient did undergo surgical intervention and correction. And Is recovering well from that, patient is weightbearing as tolerated on bilateral lower extremities per orthopedist. Patient not requiring any pain control. Patient did have suicidal attempt and was Back acted. Psychiatry did evaluate the patient and indicated that he is not a candidate for inpatient psychiatry management. It was attempted to transfer the patient to local rehabilitation facilities for continued care until the patient is safe enough to go home, however local rehabilitation facilities have denied the patient due to his history. Because of that reason patient was transferred to [place] for long -term care. Objective Vitals Vital Signs Date Time Temp Pulse Resp B/P Pulse Ox O2 Delivery O2 Flow Rate FiO2 09/18/16 14:42 09/18/16 13:47 09/18/16 08:21 Room Air 09/18/16 08:00 95.6 91 20 109/72 98 09/17/16 20:00 96.6 98 16 101/73 96 09/17/16 19:35 Room Air 09/17/16 18:37 I/O 09/17/16 09/17/16 09/17/16 09/18/16 09/18/16 09/18/16 07:00 15:00 23:00 07:00 15:00 23:00 Intake Total 480 ml 0 ml 480 ml 0 ml Output Total 750 ml 575 ml 800 ml Balance -270 ml 0 ml -575 ml -320 ml 0 ml Intake Oral 480 ml 480 ml IV Total 0 ml 0 ml Output Urine Total 750 ml 575 ml 800 ml # Bowel Movements 0 1 0 Imaging Last Impressions Knee X-Ray 09/17/16 0000 Signed Impressions: Service Date/Time: Saturday, September 17, 2016 09:52 - CONCLUSION: Persistent fracture deformities as described above. Moses Miramontes MD Objective Remarks GENERAL: Well-developed, well-nourished, in no acute distress. alert and orientated HEENT: Head is normocephalic without any lesions or masses noted. Facial features are symmetric. Eyes: Extraocular muscles are intact. Conjunctivae were clear. NECK: Supple without any masses. Trachea midline no deviation. No JVD, CARDIAC: Regular rhythm, regular rate. S1/S2 are heard. No murmurs gallops or rubs. LUNGS: Clear to auscultation bilaterally. No wheeze, rhonchi or rales. No use of accessory muscles on inspiration or expiration. ABDOMEN: Soft, nontender. Nondistended. Bowel sounds heard in all 4 quadrants. No organomegaly or masses. Negative rebound, negative guarding EXTREMITIES: No edema, pulses are equal bilaterally. No cyanosis or clubbing NEUROLOGY: Mood and affect appear appropriate. Cranial nerves II through XII grossly intact. RIGHT LOWER EXTREMITY: Patient is straight-leg brace LEFT LOWER EXTREMITY: Scars are noted, however patient able to move his left lower extremity LEFT UPPER EXTREMITY: Patient is in mid arm cast Procedures Closed reduction with casting and removal of exfix left elbow and DRUJ 09/05/2016. Urinary Catheter: No Vascular Central Line Catheter: No A/P Assessment and Plan Suicide attempt 07/12/2016- Bipolar disorder/schizophrenia: Psychiatry was following. - Back act was lifted and it was indicated that he is not a candidate for inpatient psychiatry - Continue Seroquel 300mg QHS - [place] 600mg Q12hrs. - Geodon 80mg BID - Reconsult psychiatry as needed Multiple orthopedic injuries - from suicide attempt on 07/12/2016. Orthopedic surgery followed - s/p right femur IMN, s/p exfix left elbow, s/p ORIF left patella, right patella fx, nonop pelvic fxs, Left elbow fracture dislocation with retained external fixation, Left distal radial ulnar joint dislocation, s/p removal of external fixation, manipulation of left elbow under anesthesia, closed reduction of distal radial ulnar joint with - placement of long-arm cast 09/05/2016. - Right lower extremity still remains in long splint - Orthopedic surgery cleared for discharge. - LLE: PROM 0-90. WBAT, RLE: maintain knee brace. PROM 0-90. WBAT with knee brace on, LUE: NWB and maintain cast. ok for platform walker, RUE: WBAT. no restrictions - Continue monitor PT/OT recommendations for discharge planning Hypothyroidism - continue levothyroxine 200 mg daily Intermittent Tachycardia: - Patient reported no pain, lithium level and TSH within normal limits. May be due to deconditioning. Continue to monitor. DVT prevention: On Xarelto. Discharge Planning Discharge planning per case management. Occupational therapy still recommending OT at rehabilitation. Physical therapy still recommending PT at rehabilitation Ethan Bruno Sep 18, 2016 15:39
[2016-09-18] MEDS ORDERED: ONDANSETRON ODT 4 MG TAB PO PRN (15:45)
[2016-09-18] MEDS: LITHIUM CARBONATE 300 MG TAB PO SCH (19:47)
[2016-09-18] MEDS: QUEtiapine FUMARATE 300 MG TAB PO SCH (19:48)
[2016-09-18 20:00] VITALS: BP 119/87; PULSE 103; RESP 16; TEMP 97.4; O2SAT 99
[2016-09-19] MEDS: LEVOTHYROXINE SODIUM 100 MCG TAB PO SCH (05:35)
[2016-09-19 08:00] VITALS: BP 108/72; PULSE 86; RESP 18; TEMP 96.3; O2SAT 98
[2016-09-19] MEDS: PANTOPRAZOLE SOD 40 MG DELAYED RELEASE TAB PO SCH (08:37)
[2016-09-19] MEDS: LITHIUM CARBONATE 300 MG TAB PO SCH ×2 (08:38→20:37)
[2016-09-19] MEDS: RIVAROXABAN 10 MG TAB PO SCH (08:38)
[2016-09-19] MEDS: ZIPRASIDONE HCL 80 MG CAP PO SCH ×2 (08:38→18:28)
--- NOTE | 2016-09-19 13:59 | HHI.PR ---
Subjective Remarks Patient seen and examined today. Patient denies any new complaints. No change clinical status. Objective Vitals Vital Signs Date Time Temp Pulse Resp B/P Pulse Ox O2 Delivery O2 Flow Rate FiO2 09/19/16 08:00 96.3 86 18 108/72 98 09/19/16 08:00 96.3 86 18 108/72 98 09/18/16 20:00 97.4 103 16 119/87 99 09/18/16 14:42 I/O 09/18/16 09/18/16 09/18/16 09/19/16 09/19/16 09/19/16 07:00 15:00 23:00 07:00 15:00 23:00 Intake Total 480 ml 0 ml 1600 ml 400 ml Output Total 800 ml 1550 ml 550 ml Balance -320 ml 0 ml 50 ml -150 ml Intake Oral 480 ml 1600 ml 400 ml IV Total 0 ml Output Urine Total 800 ml 1550 ml 550 ml # Bowel Movements 0 0 Objective Remarks GENERAL: Well-developed, well-nourished, in no acute distress. alert and orientated HEENT: Head is normocephalic without any lesions or masses noted. Facial features are symmetric. Eyes: Extraocular muscles are intact. Conjunctivae were clear. NECK: Supple without any masses. Trachea midline no deviation. No JVD, CARDIAC: Regular rhythm, regular rate. S1/S2 are heard. No murmurs gallops or rubs. LUNGS: Clear to auscultation bilaterally. No wheeze, rhonchi or rales. No use of accessory muscles on inspiration or expiration. ABDOMEN: Soft, nontender. Nondistended. Bowel sounds heard in all 4 quadrants. No organomegaly or masses. Negative rebound, negative guarding EXTREMITIES: No edema, pulses are equal bilaterally. No cyanosis or clubbing NEUROLOGY: Mood and affect appear appropriate. Cranial nerves II through XII grossly intact. RIGHT LOWER EXTREMITY: Patient is straight-leg brace LEFT LOWER EXTREMITY: Scars are noted, however patient able to move his left lower extremity LEFT UPPER EXTREMITY: Patient is in mid arm cast Procedures Closed reduction with casting and removal of exfix left elbow and DRUJ 09/05/2016. Urinary Catheter: No Vascular Central Line Catheter: No A/P Assessment and Plan Suicide attempt 07/12/2016- Bipolar disorder/schizophrenia: Psychiatry was following. - Back act was lifted and it was indicated that he is not a candidate for inpatient psychiatry - Continue Seroquel 300mg QHS - [place] 600mg Q12hrs. - Geodon 80mg BID - Reconsult psychiatry as needed Multiple orthopedic injuries - from suicide attempt on 07/12/2016. Orthopedic surgery followed - s/p right femur IMN, s/p exfix left elbow, s/p ORIF left patella, right patella fx, nonop pelvic fxs, Left elbow fracture dislocation with retained external fixation, Left distal radial ulnar joint dislocation, s/p removal of external fixation, manipulation of left elbow under anesthesia, closed reduction of distal radial ulnar joint with - placement of long-arm cast 09/05/2016. - Right lower extremity still remains in long splint - Orthopedic surgery cleared for discharge. - LLE: PROM 0-90. WBAT, RLE: maintain knee brace. PROM 0-90. WBAT with knee brace on, LUE: NWB and maintain cast. ok for platform walker, RUE: WBAT. no restrictions - Continue monitor PT/OT recommendations for discharge planning Hypothyroidism - continue levothyroxine 200 mg daily Intermittent Tachycardia: - Patient reported no pain, lithium level and TSH within normal limits. May be due to deconditioning. Continue to monitor. DVT prevention: On Xarelto. Discharge Planning Discharge planning per case management. Occupational therapy still recommending OT at rehabilitation. Physical therapy still recommending PT at rehabilitation Ethan Bruno Sep 19, 2016 13:59
[2016-09-19 20:00] VITALS: BP 102/65; PULSE 96; RESP 20; TEMP 97.6; O2SAT 97
[2016-09-19] MEDS: QUEtiapine FUMARATE 300 MG TAB PO SCH (20:36)
[2016-09-20] MEDS: LEVOTHYROXINE SODIUM 100 MCG TAB PO SCH (05:33)
[2016-09-20 08:00] VITALS: BP 110/75; PULSE 83; RESP 18; TEMP 96.6; O2SAT 97
[2016-09-20] MEDS: RIVAROXABAN 10 MG TAB PO SCH (08:12)
[2016-09-20] MEDS: LITHIUM CARBONATE 300 MG TAB PO SCH ×2 (08:12→20:22)
[2016-09-20] MEDS: PANTOPRAZOLE SOD 40 MG DELAYED RELEASE TAB PO SCH (08:12)
[2016-09-20] MEDS: ZIPRASIDONE HCL 80 MG CAP PO SCH ×2 (09:00→17:11)
--- NOTE | 2016-09-20 13:39 | HHI.PR ---
Subjective Remarks Patient seen and examined today. Patient denies any new complaints. No change in clinical status. Objective Vitals Vital Signs Date Time Temp Pulse Resp B/P Pulse Ox O2 Delivery O2 Flow Rate FiO2 09/20/16 08:00 96.6 83 18 110/75 97 09/19/16 20:00 97.6 96 20 102/65 97 I/O 09/19/16 09/19/16 09/19/16 09/20/16 09/20/16 09/20/16 07:00 15:00 23:00 07:00 15:00 23:00 Intake Total 400 ml 1520 ml 180 ml Output Total 550 ml 600 ml 1650 ml 500 ml 1900 ml Balance -150 ml -600 ml -130 ml -320 ml -1900 ml Intake Oral 400 ml 1520 ml 180 ml Output Urine Total 550 ml 600 ml 1650 ml 500 ml 1900 ml # Bowel Movements 0 1 0 Objective Remarks GENERAL: Well-developed, well-nourished, in no acute distress. alert and orientated HEENT: Head is normocephalic without any lesions or masses noted. Facial features are symmetric. Eyes: Extraocular muscles are intact. Conjunctivae were clear. NECK: Supple without any masses. Trachea midline no deviation. No JVD, CARDIAC: Regular rhythm, regular rate. S1/S2 are heard. No murmurs gallops or rubs. LUNGS: Clear to auscultation bilaterally. No wheeze, rhonchi or rales. No use of accessory muscles on inspiration or expiration. ABDOMEN: Soft, nontender. Nondistended. Bowel sounds heard in all 4 quadrants. No organomegaly or masses. Negative rebound, negative guarding EXTREMITIES: No edema, pulses are equal bilaterally. No cyanosis or clubbing NEUROLOGY: Mood and affect appear appropriate. Cranial nerves II through XII grossly intact. RIGHT LOWER EXTREMITY: Patient is straight-leg brace LEFT LOWER EXTREMITY: Scars are noted, however patient able to move his left lower extremity LEFT UPPER EXTREMITY: Patient is in mid arm cast Procedures Closed reduction with casting and removal of exfix left elbow and DRUJ 09/05/2016. Urinary Catheter: No Vascular Central Line Catheter: No A/P Assessment and Plan Suicide attempt 07/12/2016- Bipolar disorder/schizophrenia: Psychiatry was following. - Back act was lifted and it was indicated that he is not a candidate for inpatient psychiatry - Continue Seroquel 300mg QHS - [place] 600mg Q12hrs. - Geodon 80mg BID - Reconsult psychiatry as needed Multiple orthopedic injuries - from suicide attempt on 07/12/2016. Orthopedic surgery followed - s/p right femur IMN, s/p exfix left elbow, s/p ORIF left patella, right patella fx, nonop pelvic fxs, Left elbow fracture dislocation with retained external fixation, Left distal radial ulnar joint dislocation, s/p removal of external fixation, manipulation of left elbow under anesthesia, closed reduction of distal radial ulnar joint with - placement of long-arm cast 09/05/2016. - Right lower extremity still remains in long splint - Orthopedic surgery cleared for discharge. - LLE: PROM 0-90. WBAT, RLE: maintain knee brace. PROM 0-90. WBAT with knee brace on, LUE: NWB and maintain cast. ok for platform walker, RUE: WBAT. no restrictions - Continue monitor PT/OT recommendations for discharge planning Hypothyroidism - continue levothyroxine 200 mg daily Intermittent Tachycardia: - Patient reported no pain, lithium level and TSH within normal limits. May be due to deconditioning. Continue to monitor. DVT prevention: On Xarelto. Discharge Planning Discharge planning per case management. Occupational therapy still recommending OT at rehabilitation. Physical therapy still recommending PT at rehabilitation Ethan Bruno Sep 20, 2016 13:39
[2016-09-20] MEDS: QUEtiapine FUMARATE 300 MG TAB PO SCH (20:22)
[2016-09-21] MEDS: LEVOTHYROXINE SODIUM 100 MCG TAB PO SCH (05:30)
[2016-09-21 08:00] VITALS: BP 121/88; PULSE 88; RESP 16; TEMP 95.6; O2SAT 98
[2016-09-21] MEDS: LITHIUM CARBONATE 300 MG TAB PO SCH ×2 (09:07→20:46)
[2016-09-21] MEDS: PANTOPRAZOLE SOD 40 MG DELAYED RELEASE TAB PO SCH (09:07)
[2016-09-21] MEDS: ZIPRASIDONE HCL 80 MG CAP PO SCH ×2 (09:07→16:50)
[2016-09-21] MEDS: RIVAROXABAN 10 MG TAB PO SCH (09:08)
--- NOTE | 2016-09-21 11:14 | HHI.PR ---
Subjective Remarks Patient seen and examined today. Patient denies any new complaints. No change in clinical status. Objective Vitals Vital Signs Date Time Temp Pulse Resp B/P Pulse Ox O2 Delivery O2 Flow Rate FiO2 09/21/16 08:00 95.6 88 16 121/88 98 I/O 09/20/16 09/20/16 09/20/16 09/21/16 09/21/16 09/21/16 07:00 15:00 23:00 07:00 15:00 23:00 Intake Total 180 ml 240 ml 480 ml 240 ml Output Total 500 ml 1900 ml 800 ml 550 ml Balance -320 ml -1660 ml -320 ml -310 ml Intake Oral 180 ml 240 ml 480 ml 240 ml Output Urine Total 500 ml 1900 ml 800 ml 550 ml # Bowel Movements 0 0 1 0 Objective Remarks GENERAL: Well-developed, well-nourished, in no acute distress. alert and orientated HEENT: Head is normocephalic without any lesions or masses noted. Facial features are symmetric. Eyes: Extraocular muscles are intact. Conjunctivae were clear. NECK: Supple without any masses. Trachea midline no deviation. No JVD, CARDIAC: Regular rhythm, regular rate. S1/S2 are heard. No murmurs gallops or rubs. LUNGS: Clear to auscultation bilaterally. No wheeze, rhonchi or rales. No use of accessory muscles on inspiration or expiration. ABDOMEN: Soft, nontender. Nondistended. Bowel sounds heard in all 4 quadrants. No organomegaly or masses. Negative rebound, negative guarding EXTREMITIES: No edema, pulses are equal bilaterally. No cyanosis or clubbing NEUROLOGY: Mood and affect appear appropriate. Cranial nerves II through XII grossly intact. RIGHT LOWER EXTREMITY: Patient is straight-leg brace was off while laying in bed LEFT LOWER EXTREMITY: Scars are noted, however patient able to move his left lower extremity LEFT UPPER EXTREMITY: Patient is in mid arm cast Procedures Closed reduction with casting and removal of exfix left elbow and DRUJ 09/05/2016. Urinary Catheter: No Vascular Central Line Catheter: No A/P Assessment and Plan Suicide attempt 07/12/2016- Bipolar disorder/schizophrenia: Psychiatry was following. - Back act was lifted and it was indicated that he is not a candidate for inpatient psychiatry - Continue Seroquel 300mg QHS - [facility] 600mg Q12hrs. - Geodon 80mg BID - Reconsult psychiatry as needed Multiple orthopedic injuries - from suicide attempt on 07/12/2016. Orthopedic surgery followed - s/p right femur IMN, s/p exfix left elbow, s/p ORIF left patella, right patella fx, nonop pelvic fxs, Left elbow fracture dislocation with retained external fixation, Left distal radial ulnar joint dislocation, s/p removal of external fixation, manipulation of left elbow under anesthesia, closed reduction of distal radial ulnar joint with - placement of long-arm cast 09/05/2016. - Right lower extremity still remains in long splint - Orthopedic surgery cleared for discharge. - LLE: PROM 0-90. WBAT, RLE: maintain knee brace. PROM 0-90. WBAT with knee brace on, LUE: NWB and maintain cast. ok for platform walker, RUE: WBAT. no restrictions - Continue monitor PT/OT recommendations for discharge planning Hypothyroidism - continue levothyroxine 200 mg daily Intermittent Tachycardia: - Patient reported no pain, lithium level and TSH within normal limits. May be due to deconditioning. Continue to monitor. DVT prevention: On Xarelto. Discharge Planning Discharge planning per case management. Occupational therapy still recommending OT at rehabilitation. Physical therapy still recommending PT at rehabilitation Ethan Bruno Sep 21, 2016 11:14
[2016-09-21] MEDS: QUEtiapine FUMARATE 300 MG TAB PO SCH (20:46)
[2016-09-22] MEDS: LEVOTHYROXINE SODIUM 100 MCG TAB PO SCH (05:36)
[2016-09-22 08:00] VITALS: BP 121/90; PULSE 85; RESP 16; TEMP 97.7; O2SAT 97
[2016-09-22] MEDS: ZIPRASIDONE HCL 80 MG CAP PO SCH ×2 (08:44→16:57)
[2016-09-22] MEDS: PANTOPRAZOLE SOD 40 MG DELAYED RELEASE TAB PO SCH (08:44)
[2016-09-22] MEDS: RIVAROXABAN 10 MG TAB PO SCH (08:44)
[2016-09-22] MEDS: LITHIUM CARBONATE 300 MG TAB PO SCH ×2 (08:44→21:05)
--- NOTE | 2016-09-22 11:32 | HHI.PR ---
Subjective Remarks Patient seen and examined. Patient eating breakfast this morning. Denies any new complaints. No change in present treatment plan Objective Vitals I/O 09/21/16 09/21/16 09/21/16 09/22/16 09/22/16 09/22/16 07:00 15:00 23:00 07:00 15:00 23:00 Intake Total 240 ml 360 ml 240 ml 480 ml Output Total 550 ml 1900 ml 1050 ml 750 ml Balance -310 ml -1540 ml -810 ml -270 ml Intake Oral 240 ml 360 ml 240 ml 480 ml Output Urine Total 550 ml 1900 ml 1050 ml 750 ml # Bowel Movements 0 1 0 Objective Remarks GENERAL: Well-developed, well-nourished, in no acute distress. alert and orientated HEENT: Head is normocephalic without any lesions or masses noted. Facial features are symmetric. Eyes: Extraocular muscles are intact. Conjunctivae were clear. NECK: Supple without any masses. Trachea midline no deviation. No JVD, CARDIAC: Regular rhythm, regular rate. S1/S2 are heard. No murmurs gallops or rubs. LUNGS: Clear to auscultation bilaterally. No wheeze, rhonchi or rales. No use of accessory muscles on inspiration or expiration. ABDOMEN: Soft, nontender. Nondistended. Bowel sounds heard in all 4 quadrants. No organomegaly or masses. Negative rebound, negative guarding EXTREMITIES: No edema, pulses are equal bilaterally. No cyanosis or clubbing NEUROLOGY: Mood and affect appear appropriate. Cranial nerves II through XII grossly intact. RIGHT LOWER EXTREMITY: Patient is straight-leg brace was off while laying in bed LEFT LOWER EXTREMITY: Scars are noted, however patient able to move his left lower extremity LEFT UPPER EXTREMITY: Patient is in mid arm cast Procedures Closed reduction with casting and removal of exfix left elbow and DRUJ 09/05/2016. Urinary Catheter: No Vascular Central Line Catheter: No A/P Assessment and Plan Suicide attempt 07/12/2016- Bipolar disorder/schizophrenia: Psychiatry was following. - Back act was lifted and it was indicated that he is not a candidate for inpatient psychiatry - Continue Seroquel 300mg QHS - [place] 600mg Q12hrs. - Geodon 80mg BID - Reconsult psychiatry as needed Multiple orthopedic injuries - from suicide attempt on 07/12/2016. Orthopedic surgery followed - s/p right femur IMN, s/p exfix left elbow, s/p ORIF left patella, right patella fx, nonop pelvic fxs, Left elbow fracture dislocation with retained external fixation, Left distal radial ulnar joint dislocation, s/p removal of external fixation, manipulation of left elbow under anesthesia, closed reduction of distal radial ulnar joint with - placement of long-arm cast 09/05/2016. - Right lower extremity still remains in long splint - Orthopedic surgery cleared for discharge. - LLE: PROM 0-90. WBAT, RLE: maintain knee brace. PROM 0-90. WBAT with knee brace on, LUE: NWB and maintain cast. ok for platform walker, RUE: WBAT. no restrictions - Continue monitor PT/OT recommendations for discharge planning Hypothyroidism - continue levothyroxine 200 mg daily Intermittent Tachycardia: - Patient reported no pain, lithium level and TSH within normal limits. May be due to deconditioning. Continue to monitor. DVT prevention: On Xarelto. Discharge Planning Discharge planning per case management. Occupational therapy still recommending OT at rehabilitation. Physical therapy still recommending PT at rehabilitation Ethan Bruno Sep 22, 2016 11:32
[2016-09-22 20:00] VITALS: BP 101/79; PULSE 99; RESP 18; TEMP 97; O2SAT 98
[2016-09-22] MEDS: QUEtiapine FUMARATE 300 MG TAB PO SCH (21:05)
[2016-09-23] MEDS: LEVOTHYROXINE SODIUM 100 MCG TAB PO SCH (06:04)
[2016-09-23] MEDS: ZIPRASIDONE HCL 80 MG CAP PO SCH ×2 (07:47→16:24)
[2016-09-23] MEDS: LITHIUM CARBONATE 300 MG TAB PO SCH ×2 (07:47→21:32)
[2016-09-23] MEDS: PANTOPRAZOLE SOD 40 MG DELAYED RELEASE TAB PO SCH (07:48)
[2016-09-23] MEDS: RIVAROXABAN 10 MG TAB PO SCH (07:48)
[2016-09-23 08:00] VITALS: BP 106/77; PULSE 79; RESP 16; TEMP 98; O2SAT 98
--- NOTE | 2016-09-23 13:08 | HHI.PR ---
Subjective Remarks Follow up for trauma. Patient admits to rash over his buttocks which is pruritic. Nurse states barrier cream is being utilized. Nurse states patient is depressed but patient has no acute complaints. Nurse also states the patient has a tremor in his hand. The patient states the left hand tremor only started a couple weeks ago when the cast was applied although patient is also on [place]. Objective Vitals Vital Signs Date Time Temp Pulse Resp B/P Pulse Ox O2 Delivery O2 Flow Rate FiO2 09/23/16 08:00 98.0 79 16 106/77 98 09/22/16 20:00 97.0 99 18 101/79 98 I/O 09/22/16 09/22/16 09/22/16 09/23/16 09/23/16 09/23/16 07:00 15:00 23:00 07:00 15:00 23:00 Intake Total 480 ml 1280 ml 420 ml Output Total 750 ml 750 ml 200 ml Balance -270 ml 530 ml 220 ml Intake Oral 480 ml 1280 ml 420 ml Output Urine Total 750 ml 750 ml 200 ml # Voids 3 # Bowel Movements 0 1 0 Imaging Last Impressions Knee X-Ray 09/17/16 0000 Signed Impressions: Service Date/Time: Saturday, September 17, 2016 09:52 - CONCLUSION: Persistent fracture deformities as described above. Moses Miramontes MD Objective Remarks GENERAL: Well-nourished, well-developed patient in apparent distress. SKIN: Warm and dry. Patient examined in the presence of a nurse. There are blanching denuded areas of skin over the buttocks. There is no actual rash evident. CARDIOVASCULAR: Regular rate and rhythm. RESPIRATORY: No accessory muscle use. Clear to auscultation. Breath sounds equal bilaterally. MUSCULOSKELETAL: 2+ right distal radial pulse. Long-arm cast over the left upper extremity with normal capillary refill in the digits of the left hand. 2 + DP pulses bilaterally. NEUROLOGICAL: Awake and alert. Tremor left hand. Normal speech. PSYCHIATRIC: Appropriate mood and affect; insight and judgment normal. Procedures Closed reduction with casting and removal of exfix left elbow and DRUJ 09/05/2016. Urinary Catheter: No Vascular Central Line Catheter: No A/P Problem List: (1) Trauma ICD Code: T14.90 Status: Acute (2) Multiple fractures ICD Code: T14.8 Status: Acute (3) Hypothyroidism ICD Code: E03.9 Status: Chronic (4) Patella fracture ICD Code: S82.009A Status: Acute (5) Elbow fracture ICD Code: S42.409A Status: Acute (6) Femur fracture, right ICD Code: S72.91XA Status: Acute (7) T12 vertebral fracture ICD Code: S22.089A Status: Acute (8) Suicide attempt ICD Code: T14.91 Status: Acute (9) Pelvic fracture ICD Code: S32.9XXA Status: Acute (10) Schizoaffective disorder, bipolar type ICD Code: F25.0 Status: Chronic Assessment and Plan Suicide attempt 07/12/2016- Bipolar disorder/schizophrenia: Psychiatry was following. - Back act was lifted and it was indicated that he is not a candidate for inpatient psychiatry - Continue Seroquel 300mg QHS - [place] 600mg Q12hrs. - Geodon 80mg BID - Reconsult psychiatry as needed - Patient has a tremor to his left hand which he associates with cast placement although this would be an odd development. It is likely due to lithium use. Nurse states she has noted the tremor elsewhere although not evident on exam today. Monitor for worsening. Multiple orthopedic injuries - from suicide attempt on 07/12/2016. Orthopedic surgery followed - s/p right femur IMN, s/p exfix left elbow, s/p ORIF left patella, right patella fx, nonop pelvic fxs, Left elbow fracture dislocation with retained external fixation, Left distal radial ulnar joint dislocation, s/p removal of external fixation, manipulation of left elbow under anesthesia, closed reduction of distal radial ulnar joint with - placement of long-arm cast 09/05/2016. - Right lower extremity still remains in immobilizer - Orthopedic surgery cleared for discharge. - LLE: PROM 0-90. WBAT, RLE: maintain knee brace. PROM 0-90. WBAT with knee brace on, LUE: NWB and maintain cast. ok for platform walker, RUE: WBAT. no restrictions - Continue monitor PT/OT recommendations for discharge planning Hypothyroidism - continue levothyroxine 200 mg daily Intermittent Tachycardia: HR wnl today. - Patient reported no pain, lithium level and TSH within normal limits. May be due to deconditioning. Continue to monitor. Buttocks wound: blanching denuded areas over the buttocks with surrounding peeled skin. Spoke with ocean export agent today, continue barrier cream. If worsens will need to consult them formally. No rash is evident. Provide adequate support to avoid further pressure injury. DVT prevention: On Xarelto. Sheela Perry Sep 23, 2016 13:08
[2016-09-23 20:00] VITALS: BP 108/73; PULSE 95; RESP 20; TEMP 97.1; O2SAT 96
[2016-09-23] MEDS: QUEtiapine FUMARATE 300 MG TAB PO SCH (21:32)
[2016-09-24] MEDS: LEVOTHYROXINE SODIUM 100 MCG TAB PO SCH (06:07)
[2016-09-24 08:00] VITALS: BP 102/81; PULSE 83; RESP 17; TEMP 97.1; O2SAT 99
[2016-09-24] MEDS: PANTOPRAZOLE SOD 40 MG DELAYED RELEASE TAB PO SCH (08:15)
[2016-09-24] MEDS: LITHIUM CARBONATE 300 MG TAB PO SCH ×2 (08:15→20:22)
[2016-09-24] MEDS: RIVAROXABAN 10 MG TAB PO SCH (08:15)
[2016-09-24] MEDS: ZIPRASIDONE HCL 80 MG CAP PO SCH ×2 (08:15→18:04)
--- NOTE | 2016-09-24 12:03 | HHI.PR ---
Subjective Remarks Follow-up on patient with suicide attempt a resultant trauma with multiple orthopedic fractures. Patient seen and examined. Patient has no new complaints today. Feels that his buttock rash is unchanged. Also reports tremor left hand is unchanged. Objective Vitals Vital Signs Date Time Temp Pulse Resp B/P Pulse Ox O2 Delivery O2 Flow Rate FiO2 09/24/16 08:00 97.1 83 17 102/81 99 09/23/16 20:00 97.1 95 20 108/73 96 I/O 09/23/16 09/23/16 09/23/16 09/24/16 09/24/16 09/24/16 07:00 15:00 23:00 07:00 15:00 23:00 Intake Total 420 ml 1220 ml 100 ml Output Total 200 ml 500 ml 0 ml Balance 220 ml 720 ml 100 ml Intake Oral 420 ml 1220 ml 100 ml Output Urine Total 200 ml 500 ml 0 ml # Bowel Movements 0 1 0 Objective Remarks GENERAL: Well-nourished, well-developed patient in apparent distress. SKIN: Warm and dry. Patient examined in the presence of a nurse. There are blanching denuded areas of skin over the buttocks. There is no actual rash evident. CARDIOVASCULAR: Regular rate and rhythm. RESPIRATORY: No accessory muscle use. Clear to auscultation. Breath sounds equal bilaterally. MUSCULOSKELETAL: 2+ right distal radial pulse. Long-arm cast over the left upper extremity with normal capillary refill in the digits of the left hand. 2 + DP pulses bilaterally. NEUROLOGICAL: Awake and alert. Tremor left hand. Normal speech. PSYCHIATRIC: Appropriate mood and affect; insight and judgment normal. Procedures Closed reduction with casting and removal of exfix left elbow and DRUJ 09/05/2016. Urinary Catheter: No Vascular Central Line Catheter: No Procedures Closed reduction with casting and removal of exfix left elbow and DRUJ 09/05/2016. Medications and IVs Current Medications Medications (Trade) Dose Ordered Sig/Jonathan Route Start Time Stop Time Status Last Admin (Tylenol) 650 mg Q4H PRN PO 09/05/16 18:30 (Milk Of Magnesia Liq) 30 ml Q12H PRN PO 09/05/16 18:30 09/07/16 09:28 (Restoril) 15 mg HS PRN PO 09/05/16 18:30 (Protonix) 40 mg DAILY PO 09/06/16 09:00 09/24/16 08:15 (Geodon) 80 mg BIDPC PO 09/06/16 09:00 09/24/16 08:15 (SEROquel) 300 mg HS PO 09/05/16 21:00 09/23/16 21:32 (Xarelto) 10 mg DAILY PO 09/13/16 21:45 09/24/16 08:15 (Synthroid) 200 mcg DAILY@06 PO 09/19/16 06:00 09/24/16 06:07 (Lithotabs) 600 mg Q12HR PO 09/18/16 21:00 09/24/16 08:15 (Zofran Odt) 4 mg Q6H PRN PO 09/18/16 15:45 A/P Problem List: (1) Trauma ICD Code: T14.90 Status: Acute (2) Multiple fractures ICD Code: T14.8 Status: Acute (3) Hypothyroidism ICD Code: E03.9 Status: Chronic (4) Patella fracture ICD Code: S82.009A Status: Acute (5) Elbow fracture ICD Code: S42.409A Status: Acute (6) Femur fracture, right ICD Code: S72.91XA Status: Acute (7) T12 vertebral fracture ICD Code: S22.089A Status: Acute (8) Suicide attempt ICD Code: T14.91 Status: Acute (9) Pelvic fracture ICD Code: S32.9XXA Status: Acute (10) Schizoaffective disorder, bipolar type ICD Code: F25.0 Status: Chronic Assessment and Plan Suicide attempt 07/12/2016- Bipolar disorder/schizophrenia: Psychiatry was following. - Back act was lifted and it was indicated that he is not a candidate for inpatient psychiatry - Continue Seroquel 300mg QHS - [place] 600mg Q12hrs. - Geodon 80mg BID - Reconsult psychiatry as needed - Patient has a tremor to his left hand which he associates with cast placement although this would be an odd development. Possibly due to lithium use. Questionable dystonic tremor, postural, resting. Nurse states she has noted the tremor elsewhere although not evident on exam today. Obtain lithium level. Multiple orthopedic injuries - from suicide attempt on 07/12/2016. Orthopedic surgery followed - s/p right femur IMN, s/p exfix left elbow, s/p ORIF left patella, right patella fx, nonop pelvic fxs, Left elbow fracture dislocation with retained external fixation, Left distal radial ulnar joint dislocation, s/p removal of external fixation, manipulation of left elbow under anesthesia, closed reduction of distal radial ulnar joint with - placement of long-arm cast 09/05/2016. - Right lower extremity still remains in immobilizer - Orthopedic surgery cleared for discharge. - LLE: PROM 0-90. WBAT, RLE: maintain knee brace. PROM 0-90. WBAT with knee brace on, LUE: NWB and maintain cast. ok for platform walker, RUE: WBAT. no restrictions - Continue monitor PT/OT recommendations for discharge planning Hypothyroidism - continue levothyroxine 200 mg daily Intermittent Tachycardia: HR wnl today. - Patient reported no pain, lithium level and TSH within normal limits. May be due to deconditioning. Continue to monitor. Buttocks wound: blanching denuded areas over the buttocks with surrounding peeled skin. Spoke with political geographer today, continue barrier cream. If worsens will need to consult them formally. No rash is evident. Provide adequate support to avoid further pressure injury. DVT prevention: On Xarelto. Discharge Planning Case management note 09/18/16 - attempting to find placement at [facility] or [facility]. Declined at [facility] and [facility]. Mel Lai Sep 24, 2016 12:03
[2016-09-24 20:00] VITALS: BP 117/81; PULSE 98; RESP 19; TEMP 98.1; O2SAT 99
[2016-09-24] MEDS: QUEtiapine FUMARATE 300 MG TAB PO SCH (20:22)
[2016-09-25] MEDS: LEVOTHYROXINE SODIUM 100 MCG TAB PO SCH (06:22)
[2016-09-25 08:00] VITALS: BP 98/64; PULSE 81; RESP 17; TEMP 96.5; O2SAT 97
[2016-09-25] MEDS: PANTOPRAZOLE SOD 40 MG DELAYED RELEASE TAB PO SCH (08:03)
[2016-09-25] MEDS: ZIPRASIDONE HCL 80 MG CAP PO SCH ×2 (08:03→18:11)
[2016-09-25] MEDS: RIVAROXABAN 10 MG TAB PO SCH (08:03)
[2016-09-25] MEDS: LITHIUM CARBONATE 300 MG TAB PO SCH ×2 (08:04→20:56)
--- NOTE | 2016-09-25 19:41 | HHI.PR ---
Subjective Remarks Follow-up on patient with suicide attempt and resultant multiple orthopedic fractures. Patient reports that he is feeling well today. Has no acute issues. Patient reports that his buttock rash is not bothering him at all. He denies any itching or pain associated with it. He is concerned about having the left arm looked at by Ortho. States that it was to be reevaluated 3 weeks from tomorrow. He denies any acute medical issues including chest pain or shortness of breath. Objective Vitals Vital Signs Date Time Temp Pulse Resp B/P Pulse Ox O2 Delivery O2 Flow Rate FiO2 09/25/16 08:00 96.5 81 17 98/64 97 09/24/16 20:00 98.1 98 19 117/81 99 I/O 09/24/16 09/24/16 09/24/16 09/25/16 09/25/16 09/25/16 07:00 15:00 23:00 07:00 15:00 23:00 Intake Total 100 ml 650 ml 360 ml Output Total 0 ml 500 ml 650 ml 725 ml 1900 ml Balance 100 ml -500 ml 0 ml -365 ml -1900 ml Intake Oral 100 ml 650 ml 360 ml Output Urine Total 0 ml 500 ml 650 ml 725 ml 1900 ml # Voids 2 1 # Bowel Movements 0 1 0 Objective Remarks GENERAL: Well-nourished, well-developed patient in apparent distress. SKIN: Warm and dry. Patient examined in the presence of a nurse. There are blanching denuded areas of skin over the buttocks. There is no actual rash evident. CARDIOVASCULAR: Regular rate and rhythm. RESPIRATORY: No accessory muscle use. Clear to auscultation. Breath sounds equal bilaterally. MUSCULOSKELETAL: 2+ right distal radial pulse. Long-arm cast over the left upper extremity with normal capillary refill in the digits of the left hand. 2 + DP pulses bilaterally. NEUROLOGICAL: Awake and alert. Tremor left hand. Normal speech. PSYCHIATRIC: Appropriate mood and affect; insight and judgment normal. Procedures Closed reduction with casting and removal of exfix left elbow and DRUJ 09/05/2016. Urinary Catheter: No Vascular Central Line Catheter: No Procedures Closed reduction with casting and removal of exfix left elbow and DRUJ 09/05/2016. Medications and IVs Current Medications Medications (Trade) Dose Ordered Sig/Jonathan Route Start Time Stop Time Status Last Admin (Tylenol) 650 mg Q4H PRN PO 09/05/16 18:30 (Milk Of Magnesia Liq) 30 ml Q12H PRN PO 09/05/16 18:30 09/07/16 09:28 (Restoril) 15 mg HS PRN PO 09/05/16 18:30 (Protonix) 40 mg DAILY PO 09/06/16 09:00 09/26/16 09:21 (Geodon) 80 mg BIDPC PO 09/06/16 09:00 09/26/16 09:20 (SEROquel) 300 mg HS PO 09/05/16 21:00 09/25/16 20:56 (Xarelto) 10 mg DAILY PO 09/13/16 21:45 09/26/16 09:21 (Synthroid) 200 mcg DAILY@06 PO 09/19/16 06:00 09/26/16 05:34 (Lithotabs) 600 mg Q12HR PO 09/18/16 21:00 09/26/16 09:00 (Zofran Odt) 4 mg Q6H PRN PO 09/18/16 15:45 A/P Problem List: (1) Trauma ICD Code: T14.90 Status: Acute (2) Multiple fractures ICD Code: T14.8 Status: Acute (3) Hypothyroidism ICD Code: E03.9 Status: Chronic (4) Patella fracture ICD Code: S82.009A Status: Acute (5) Elbow fracture ICD Code: S42.409A Status: Acute (6) Femur fracture, right ICD Code: S72.91XA Status: Acute (7) T12 vertebral fracture ICD Code: S22.089A Status: Acute (8) Suicide attempt ICD Code: T14.91 Status: Acute (9) Pelvic fracture ICD Code: S32.9XXA Status: Acute (10) Schizoaffective disorder, bipolar type ICD Code: F25.0 Status: Chronic Assessment and Plan Suicide attempt 07/12/2016- Bipolar disorder/schizophrenia: Psychiatry was following. - Back act was lifted and it was indicated that he is not a candidate for inpatient psychiatry - Continue Seroquel 300mg QHS - [place] 600mg Q12hrs. - Geodon 80mg BID - Reconsult psychiatry as needed - Patient has a tremor to his left hand which he associates with cast placement although this would be an odd development. Questionable dystonic tremor, postural, resting - result of left upper extremity. Nurse states she has noted the tremor elsewhere although not evident on exam today. [place] level 1.2. Will contact Ortho to discuss reevaluation of LUE. Multiple orthopedic injuries - from suicide attempt on 07/12/2016. Orthopedic surgery followed - s/p right femur IMN, s/p exfix left elbow, s/p ORIF left patella, right patella fx, nonop pelvic fxs, Left elbow fracture dislocation with retained external fixation, Left distal radial ulnar joint dislocation, s/p removal of external fixation, manipulation of left elbow under anesthesia, closed reduction of distal radial ulnar joint with placement of long-arm cast 2016. Will contact Ortho tomorrow to discuss cast management - Right lower extremity still remains in immobilizer - Orthopedic surgery cleared for discharge. - LLE: PROM 0-90. WBAT, RLE: maintain knee brace. PROM 0-90. WBAT with knee brace on, LUE: NWB and maintain cast. ok for platform walker, RUE: WBAT. no restrictions - Continue monitor PT/OT recommendations for discharge planning. Patient has been progressing extremely well. He is no longer a candidate for rehabilitation. Plan for discharge to home with home health care. Hypothyroidism - continue levothyroxine 200 mg daily Intermittent Tachycardia: HR wnl today. - Patient reported no pain, lithium level and TSH within normal limits. May be due to deconditioning. Continue to monitor. No change currently. Buttocks wound: Asymptomatic. Appears unchanged. Blanching denuded areas over the buttocks with surrounding peeled skin. No evidence of ulceration. Spoke with mig welder, continue barrier cream. If worsens will need to consult them formally. Provide adequate support to avoid further pressure injury. Discussed with patient off loading maneuvers. DVT prevention: On Xarelto. Discharge Planning Case management note 09/18/16 - attempting to find placement at [facility] or [facility]. Declined at [facility] and [facility]. Attending Statement Patient seen. Agree with above. Mel Lai Sep 25, 2016 19:41 Ethan Malave MD Sep 26, 2016 10:56
[2016-09-25 20:00] VITALS: BP 103/68; PULSE 102; RESP 18; TEMP 97.9; O2SAT 98
[2016-09-25] MEDS: QUEtiapine FUMARATE 300 MG TAB PO SCH (20:56)
[2016-09-26] MEDS: LEVOTHYROXINE SODIUM 100 MCG TAB PO SCH (05:34)
[2016-09-26 08:00] VITALS: BP 104/73; PULSE 78; RESP 18; TEMP 96.8; O2SAT 98
[2016-09-26] MEDS ORDERED: WHEEMIS3 (08:44)
[2016-09-26] MEDS ORDERED: HOSP BED1 (08:44)
[2016-09-26] MEDS: LITHIUM CARBONATE 300 MG TAB PO SCH ×2 (09:00→21:52)
[2016-09-26] MEDS: ZIPRASIDONE HCL 80 MG CAP PO SCH ×2 (09:20→17:41)
[2016-09-26] MEDS: PANTOPRAZOLE SOD 40 MG DELAYED RELEASE TAB PO SCH (09:21)
[2016-09-26] MEDS: RIVAROXABAN 10 MG TAB PO SCH (09:21)
--- NOTE | 2016-09-26 12:17 | HHI.FF ---
Face to Face Verification Diagnosis: (1) Elbow dislocation (2) Ulnar artery injury (3) Trauma (4) Pelvic fracture (5) Patella fracture (6) Elbow fracture (7) Femur fracture, right (8) T12 vertebral fracture (9) Left radial fracture (10) Left patella fracture (11) Right patella fracture (12) Multiple fractures (13) Impaired mobility and ADLs Physical Therapy Order: Evaluate and Treat, Improve ambulation, Strength and gait training Occupational Therapy Order: Evaluate and Treat, Improve ADL, Gross motor coordination, Fine motor coordination Home Health Nursing Order: Wound care and dressing changes (barrier cream to buttocks, monitor) Home Health Aide Order: To Assist In: Bathing and personal care, grain merchandising manager and meal prep I have seen patient Papo [place] on 09/26/16. My clinical findings support the need for the requested home health care services because: Ltd mobility - disease progression Deconditioned w/ increased weakness Limited ability to care for self Need for psychosocial assistance Impaired cognition/judgement High risk of falls I certify that my clinical findings support that this patient is homebound because: Unsteady gait/balance Need for psychosocial assistance Unable to use public transportation Mel Lai Sep 26, 2016 12:17
--- NOTE | 2016-09-26 13:42 | HHI.PR ---
Objective Vitals Vital Signs Date Time Temp Pulse Resp B/P Pulse Ox O2 Delivery O2 Flow Rate FiO2 09/25/16 08:00 96.5 81 17 98/64 97 09/24/16 20:00 98.1 98 19 117/81 99 I/O 09/24/16 09/24/16 09/24/16 09/25/16 09/25/16 09/25/16 07:00 15:00 23:00 07:00 15:00 23:00 Intake Total 100 ml 650 ml 360 ml Output Total 0 ml 500 ml 650 ml 725 ml 1900 ml Balance 100 ml -500 ml 0 ml -365 ml -1900 ml Intake Oral 100 ml 650 ml 360 ml Output Urine Total 0 ml 500 ml 650 ml 725 ml 1900 ml # Voids 2 1 # Bowel Movements 0 1 0 Objective Remarks GENERAL: Well-nourished, well-developed patient in apparent distress. SKIN: Warm and dry. Patient examined in the presence of a nurse. There are blanching denuded areas of skin over the buttocks. There is no actual rash evident. CARDIOVASCULAR: Regular rate and rhythm. RESPIRATORY: No accessory muscle use. Clear to auscultation. Breath sounds equal bilaterally. MUSCULOSKELETAL: 2+ right distal radial pulse. Long-arm cast over the left upper extremity with normal capillary refill in the digits of the left hand. 2 + DP pulses bilaterally. NEUROLOGICAL: Awake and alert. Tremor left hand. Normal speech. PSYCHIATRIC: Appropriate mood and affect; insight and judgment normal. Procedures Closed reduction with casting and removal of exfix left elbow and DRUJ 09/05/2016. Urinary Catheter: No Vascular Central Line Catheter: No Procedures Closed reduction with casting and removal of exfix left elbow and DRUJ 09/05/2016. A/P Problem List: (1) Trauma ICD Code: T14.90 Status: Acute (2) Multiple fractures ICD Code: T14.8 Status: Acute (3) Hypothyroidism ICD Code: E03.9 Status: Chronic (4) Patella fracture ICD Code: S82.009A Status: Acute (5) Elbow fracture ICD Code: S42.409A Status: Acute (6) Femur fracture, right ICD Code: S72.91XA Status: Acute (7) T12 vertebral fracture ICD Code: S22.089A Status: Acute (8) Suicide attempt ICD Code: T14.91 Status: Acute (9) Pelvic fracture ICD Code: S32.9XXA Status: Acute (10) Schizoaffective disorder, bipolar type ICD Code: F25.0 Status: Chronic Assessment and Plan Please disregard this progress note was made and air. Please refer to progress note with same date. Mel Lai Sep 25, 2016 19:44
[2016-09-26] MEDS ORDERED: MISC-163 (14:30)
--- NOTE | 2016-09-26 16:07 | HHI.PYPN ---
Subjective Remarks Patient is seen for reevaluation today, he is found calm, cooperative and pleasant. He says he is happy "because after 3 months in the hospital I am going home today and I have seen her improvement" He seems objectively improved, his affect is bright and full range, nos visible psychosis observed He denies depression, anxiety, trevor and perceptual disturbances, denies delusions, paranoia, ideas of reference He denies SI/HI/VH/AH, Patient is oriented X3, with good attention spam. He has been fully compliant with meds, no significant side effect reported Patient was able to verbalize his commitment to be compliant with medications and follow up with outpatient care His , Helena Washington, was widely educated about the importance of making sure patient is taking his meds, going to appointments, but also keep monitoring closely psychotic and mood dysregulation. She confirms that at this moment patient is a baseline, "the best I have seen him in months". Review of Systems Other No somatic complains Objective Alert: Yes [place]: Person, Place, Date Mood: Calm Affect: Euthymic Memory Intact: Recent, Remote Hallucinations: Other (none) Delusions: No Delusion Type: Other (none elicited) Suicidal: Ideation (he denies) Homicidal: Ideation (he denies) Insight/Judgement Good Vitals/IOs Vital Signs Date Time Temp Pulse Resp B/P Pulse Ox O2 Delivery O2 Flow Rate FiO2 09/26/16 08:00 96.8 78 18 104/73 98 Intake and Output 09/25/16 09/25/16 09/26/16 08:00 16:00 00:00 Intake Total 360 ml 720 ml Output Total 725 ml 3025 ml Balance -365 ml -2305 ml Assessment & Plan Problem List: (1) Schizoaffective disorder, bipolar type Assessment & Plan: Psychiatrically stable to be Dc back home Continue current psychotropics Extensive psychoeducation provided Outpatient psychiatric referral provided ICD Code: F25.0 Assessment & Plan Estimated LOS: days Justification for Cont. Inpt. No admission needed Dariel Sanford MD Sep 26, 2016 16:07
--- NOTE | 2016-09-26 19:10 | HHI.PR ---
Subjective Remarks Follow-up on patient with suicide attempts and multiple orthopedic fractures. Patient sitting up in bedside chair. is present at bedside. Patient is doing well today. He has no new complaints. No chest pain, shortness of breath or abdominal pain. Objective Vitals Vital Signs Date Time Temp Pulse Resp B/P Pulse Ox O2 Delivery O2 Flow Rate FiO2 09/26/16 08:00 96.8 78 18 104/73 98 09/25/16 20:00 97.9 102 18 103/68 98 I/O 09/25/16 09/25/16 09/25/16 09/26/16 09/26/16 09/26/16 07:00 15:00 23:00 07:00 15:00 23:00 Intake Total 360 ml 720 ml 480 ml 360 ml Output Total 725 ml 3025 ml 700 ml 950 ml Balance -365 ml -2305 ml -220 ml -590 ml Intake Oral 360 ml 720 ml 480 ml 360 ml IV Total 0 ml Output Urine Total 725 ml 3025 ml 700 ml 950 ml # Voids 1 # Bowel Movements 0 1 0 0 Objective Remarks GENERAL: Well-nourished, well-developed patient in apparent distress. SKIN: Warm and dry. Patient examined in the presence of a nurse. There are blanching denuded areas of skin over the buttocks. There is no actual rash evident. CARDIOVASCULAR: Regular rate and rhythm. RESPIRATORY: No accessory muscle use. Clear to auscultation. Breath sounds equal bilaterally. MUSCULOSKELETAL: 2+ right distal radial pulse. Long-arm cast over the left upper extremity with normal capillary refill in the digits of the left hand. 2 + DP pulses bilaterally. NEUROLOGICAL: Awake and alert. Tremor left hand. Normal speech. PSYCHIATRIC: Appropriate mood and affect; insight and judgment normal. Procedures Closed reduction with casting and removal of exfix left elbow and DRUJ 09/05/2016. Urinary Catheter: No Vascular Central Line Catheter: No Procedures Closed reduction with casting and removal of exfix left elbow and DRUJ 09/05/2016. Medications and IVs Current Medications Medications (Trade) Dose Ordered Sig/Jonathan Route Start Time Stop Time Status Last Admin (Tylenol) 650 mg Q4H PRN PO 09/05/16 18:30 (Milk Of Magnesia Liq) 30 ml Q12H PRN PO 09/05/16 18:30 09/07/16 09:28 (Restoril) 15 mg HS PRN PO 09/05/16 18:30 (Protonix) 40 mg DAILY PO 09/06/16 09:00 09/26/16 09:21 (Geodon) 80 mg BIDPC PO 09/06/16 09:00 09/26/16 17:41 (SEROquel) 300 mg HS PO 09/05/16 21:00 09/25/16 20:56 (Xarelto) 10 mg DAILY PO 09/13/16 21:45 09/26/16 09:21 (Synthroid) 200 mcg DAILY@06 PO 09/19/16 06:00 09/26/16 05:34 (Lithotabs) 600 mg Q12HR PO 09/18/16 21:00 09/26/16 09:00 (Zofran Odt) 4 mg Q6H PRN PO 09/18/16 15:45 A/P Problem List: (1) Trauma ICD Code: T14.90 Status: Acute (2) Multiple fractures ICD Code: T14.8 Status: Acute (3) Hypothyroidism ICD Code: E03.9 Status: Chronic (4) Patella fracture ICD Code: S82.009A Status: Acute (5) Elbow fracture ICD Code: S42.409A Status: Acute (6) Femur fracture, right ICD Code: S72.91XA Status: Acute (7) T12 vertebral fracture ICD Code: S22.089A Status: Acute (8) Suicide attempt ICD Code: T14.91 Status: Acute (9) Pelvic fracture ICD Code: S32.9XXA Status: Acute (10) Schizoaffective disorder, bipolar type ICD Code: F25.0 Status: Chronic Assessment and Plan Suicide attempt 07/12/2016- Bipolar disorder/schizophrenia: Psychiatry was following. - Back act was lifted and it was indicated that he is not a candidate for inpatient psychiatry - Continue Seroquel 300mg QHS - [place] 600mg Q12hrs. - Geodon 80mg BID - Psychiatry reconsulted at 's request. Seen by today who states patient is psychiatrically stable to be discharged home, - Patient has a tremor to his left hand which he associates with cast placement although this would be an odd development. Questionable dystonic tremor, postural, resting - result of left upper extremity. Nurse states she has noted the tremor elsewhere although not evident on exam today. [place] level 1.2. Left message for [facility] PA to discuss reevaluation of LUE. Multiple orthopedic injuries - from suicide attempt on 07/12/2016. Orthopedic surgery followed - s/p right femur IMN, s/p exfix left elbow, s/p ORIF left patella, right patella fx, nonop pelvic fxs, Left elbow fracture dislocation with retained external fixation, Left distal radial ulnar joint dislocation, s/p removal of external fixation, manipulation of left elbow under anesthesia, closed reduction of distal radial ulnar joint with placement of long-arm cast 2016. Will contact Ortho tomorrow to discuss cast management - Right lower extremity still remains in immobilizer - Orthopedic surgery cleared for discharge. - LLE: PROM 0-90. WBAT, RLE: maintain knee brace. PROM 0-90. WBAT with knee brace on, LUE: NWB and maintain cast. ok for platform walker, RUE: WBAT. no restrictions - Continue monitor PT/OT recommendations for discharge planning. Patient has been progressing extremely well. He is no longer a candidate for rehabilitation. Plan for discharge to home with home health care. Hypothyroidism - continue levothyroxine 200 mg daily Intermittent Tachycardia: HR wnl today. - Patient reported no pain, lithium level and TSH within normal limits. May be due to deconditioning. Continue to monitor. No change currently. Buttocks wound: Asymptomatic. Appears unchanged. Blanching denuded areas over the buttocks with surrounding peeled skin. No evidence of ulceration. Spoke with rails developer, continue barrier cream. If worsens will need to consult them formally. Provide adequate support to avoid further pressure injury. Discussed with patient off loading maneuvers. DVT prevention: On Xarelto. Discharge Planning DME and home health care orders placed and sent by case management. Possible discharge tomorrow. Attending Statement Patient seen. Agree with above. Mel Lai Sep 26, 2016 19:10 Ethan Malave MD Sep 26, 2016 19:17
[2016-09-26 20:00] VITALS: BP 105/73; PULSE 100; RESP 16; TEMP 98.8; O2SAT 95
[2016-09-26] MEDS: QUEtiapine FUMARATE 300 MG TAB PO SCH (21:32)
[2016-09-27] MEDS: LEVOTHYROXINE SODIUM 100 MCG TAB PO SCH (05:21)
[2016-09-27 08:00] VITALS: BP 104/79; PULSE 82; RESP 20; TEMP 96.5; O2SAT 99
[2016-09-27] MEDS: ZIPRASIDONE HCL 80 MG CAP PO SCH ×2 (08:47→17:48)
[2016-09-27] MEDS: RIVAROXABAN 10 MG TAB PO SCH (08:48)
[2016-09-27] MEDS: PANTOPRAZOLE SOD 40 MG DELAYED RELEASE TAB PO SCH (08:48)
[2016-09-27] MEDS: LITHIUM CARBONATE 300 MG TAB PO SCH ×2 (08:48→20:35)
--- NOTE | 2016-09-27 12:50 | HHI.PR ---
Subjective Remarks Follow-up the patient was suicide attempt and subsequent multiple orthopedic fractures. Patient lying in hospital bed asleep but easily arousable. is present at the bedside. She reports he is doing well. He has no acute medical complaints today. No change in current clinical status. Objective Vitals Vital Signs Date Time Temp Pulse Resp B/P Pulse Ox O2 Delivery O2 Flow Rate FiO2 09/27/16 08:00 96.5 82 20 104/79 99 09/26/16 20:00 98.8 100 16 105/73 95 I/O 09/26/16 09/26/16 09/26/16 09/27/16 09/27/16 09/27/16 07:00 15:00 23:00 07:00 15:00 23:00 Intake Total 480 ml 360 ml 480 ml 220 ml Output Total 700 ml 950 ml 800 ml Balance -220 ml -590 ml -320 ml 220 ml Intake Oral 480 ml 360 ml 480 ml 220 ml IV Total 0 ml 0 ml 0 ml Output Urine Total 700 ml 950 ml 800 ml # Voids 0 # Bowel Movements 0 0 1 0 Objective Remarks GENERAL: Well-nourished, well-developed patient in apparent distress. Asleep but easily arousable. SKIN: Warm and dry. CARDIOVASCULAR: Regular rate and rhythm. RESPIRATORY: No accessory muscle use. Clear to auscultation. Breath sounds equal bilaterally. MUSCULOSKELETAL: 2+ right distal radial pulse. Long-arm cast over the left upper extremity with normal capillary refill in the digits of the left hand. (+ )resting tremor in left hand. 2+ DP pulses bilaterally. NEUROLOGICAL: Awake and alert. Tremor left hand. Normal speech. PSYCHIATRIC: Appropriate mood and affect; insight and judgment normal. Procedures Closed reduction with casting and removal of exfix left elbow and DRUJ 09/05/2016. Urinary Catheter: No Vascular Central Line Catheter: No Procedures Closed reduction with casting and removal of exfix left elbow and DRUJ 09/05/2016. Medications and IVs Current Medications Medications (Trade) Dose Ordered Sig/Jonathan Route Start Time Stop Time Status Last Admin (Tylenol) 650 mg Q4H PRN PO 09/05/16 18:30 (Milk Of Magnesia Liq) 30 ml Q12H PRN PO 09/05/16 18:30 09/07/16 09:28 (Restoril) 15 mg HS PRN PO 09/05/16 18:30 (Protonix) 40 mg DAILY PO 09/06/16 09:00 09/27/16 08:48 (Geodon) 80 mg BIDPC PO 09/06/16 09:00 09/27/16 08:47 (SEROquel) 300 mg HS PO 09/05/16 21:00 09/26/16 21:32 (Xarelto) 10 mg DAILY PO 09/13/16 21:45 09/27/16 08:48 (Synthroid) 200 mcg DAILY@06 PO 09/19/16 06:00 09/27/16 05:21 (Lithotabs) 600 mg Q12HR PO 09/18/16 21:00 09/27/16 08:48 (Zofran Odt) 4 mg Q6H PRN PO 09/18/16 15:45 A/P Problem List: (1) Trauma ICD Code: T14.90 Status: Acute (2) Multiple fractures ICD Code: T14.8 Status: Acute (3) Hypothyroidism ICD Code: E03.9 Status: Chronic (4) Patella fracture ICD Code: S82.009A Status: Acute (5) Elbow fracture ICD Code: S42.409A Status: Acute (6) Femur fracture, right ICD Code: S72.91XA Status: Acute (7) T12 vertebral fracture ICD Code: S22.089A Status: Acute (8) Suicide attempt ICD Code: T14.91 Status: Acute (9) Pelvic fracture ICD Code: S32.9XXA Status: Acute (10) Schizoaffective disorder, bipolar type ICD Code: F25.0 Status: Chronic Assessment and Plan Suicide attempt 07/12/2016- Bipolar disorder/schizophrenia: Psychiatry was following. - Back act was lifted and it was indicated that he is not a candidate for inpatient psychiatry - Continue Seroquel 300mg QHS - [place] 600mg Q12hrs. - Geodon 80mg BID - Psychiatry reconsulted at 's request. Seen by today who states patient is psychiatrically stable to be discharged home, - Patient has a tremor to his left hand which he associates with cast placement. Questionable dystonic tremor, postural, resting - result of left upper extremity. Nurse states she has noted the tremor elsewhere although not evident on exam today. [place] level 1.2. Left message for [facility] PA to discuss reevaluation of LUE, no response. Now it's the weekend, will try and contact Pradeep on Thursday. Multiple orthopedic injuries - from suicide attempt on 07/12/2016. Orthopedic surgery followed - s/p right femur IMN, s/p exfix left elbow, s/p ORIF left patella, right patella fx, nonop pelvic fxs, Left elbow fracture dislocation with retained external fixation, Left distal radial ulnar joint dislocation, s/p removal of external fixation, manipulation of left elbow under anesthesia, closed reduction of distal radial ulnar joint with placement of long-arm cast 2016. Will contact Ortho tomorrow to discuss cast management - Right lower extremity still remains in immobilizer - Orthopedic surgery cleared for discharge. - LLE: PROM 0-90. WBAT, RLE: maintain knee brace. PROM 0-90. WBAT with knee brace on, LUE: NWB and maintain cast. ok for platform walker, RUE: WBAT. no restrictions - Continue monitor PT/OT recommendations for discharge planning. Patient has been progressing extremely well. He is no longer a candidate for rehabilitation. Plan for discharge to home with home health care. Hypothyroidism - continue levothyroxine 200 mg daily Intermittent Tachycardia: HR wnl today. - Patient reported no pain, lithium level and TSH within normal limits. May be due to deconditioning. Continue to monitor. Presently heart rate is 82. Buttocks wound: Asymptomatic. Appears unchanged. Blanching denuded areas over the buttocks with surrounding peeled skin. No evidence of ulceration. Spoke with interactive account manager, continue barrier cream. If worsens will need to consult them formally. Provide adequate support to avoid further pressure injury. Discussed with patient off loading maneuvers. To be followed by home health care following discharge. DVT prevention: On Xarelto. Discharge Planning DME and home health care orders placed and sent by case management. Discussed with Rigoberto case management today and patient to be discharged on Thursday once home health care set up for patient. Discussed at length with and patient. Attending Statement Patient seen. Agree with above. Mel Lai Sep 27, 2016 12:50 Ethan Malave MD Sep 27, 2016 15:45
[2016-09-27 20:00] VITALS: BP 117/84; PULSE 99; RESP 20; TEMP 96; O2SAT 98
[2016-09-27] MEDS: QUEtiapine FUMARATE 300 MG TAB PO SCH (20:35)
[2016-09-28] MEDS: LEVOTHYROXINE SODIUM 100 MCG TAB PO SCH (06:09)
[2016-09-28 08:00] VITALS: BP 103/77; PULSE 91; RESP 16; TEMP 97; O2SAT 95
[2016-09-28] MEDS: LITHIUM CARBONATE 300 MG TAB PO SCH ×2 (10:11→20:46)
[2016-09-28] MEDS: RIVAROXABAN 10 MG TAB PO SCH (10:11)
[2016-09-28] MEDS: PANTOPRAZOLE SOD 40 MG DELAYED RELEASE TAB PO SCH (10:11)
[2016-09-28] MEDS: ZIPRASIDONE HCL 80 MG CAP PO SCH ×2 (10:11→16:52)
--- NOTE | 2016-09-28 15:09 | HHI.PR ---
Subjective Remarks Follow-up patient with suicide attempt and subsequent multiple orthopedic fractures. Patient lying in hospital bed awake. He denies any acute medical complaints. He denies any chest pain, abdominal pain or shortness of breath. He is looking forward to going home tomorrow. Objective Vitals Vital Signs Date Time Temp Pulse Resp B/P Pulse Ox O2 Delivery O2 Flow Rate FiO2 09/28/16 08:00 97.0 91 16 103/77 95 09/27/16 20:00 96.0 99 20 117/84 98 I/O 09/27/16 09/27/16 09/27/16 09/28/16 09/28/16 09/28/16 07:00 15:00 23:00 07:00 15:00 23:00 Intake Total 220 ml 1000 ml 120 ml 120 ml 100 ml Output Total 1800 ml Balance 220 ml -800 ml 120 ml 120 ml 100 ml Intake Oral 220 ml 1000 ml 120 ml 120 ml 100 ml IV Total 0 ml Output Urine Total 1800 ml # Voids 0 1 1 # Bowel Movements 0 0 1 Objective Remarks GENERAL: Well-nourished, well-developed patient in apparent distress. Lying in bed. Awake. SKIN: Warm and dry. CARDIOVASCULAR: Regular rate and rhythm. RESPIRATORY: No accessory muscle use. Clear to auscultation. Breath sounds equal bilaterally. MUSCULOSKELETAL: 2+ right distal radial pulse. Long-arm cast over the left upper extremity with normal capillary refill in the digits of the left hand. (+ )resting tremor in left hand. 2+ DP pulses bilaterally. NEUROLOGICAL: Awake and alert. Tremor left hand. Normal speech. PSYCHIATRIC: Appropriate mood and affect; insight and judgment normal. Procedures Closed reduction with casting and removal of exfix left elbow and DRUJ 09/05/2016. Urinary Catheter: No Vascular Central Line Catheter: No Procedures Closed reduction with casting and removal of exfix left elbow and DRUJ 09/05/2016. Medications and IVs Current Medications Medications (Trade) Dose Ordered Sig/Jonathan Route Start Time Stop Time Status Last Admin (Tylenol) 650 mg Q4H PRN PO 09/05/16 18:30 (Milk Of Magnesia Liq) 30 ml Q12H PRN PO 09/05/16 18:30 09/07/16 09:28 (Restoril) 15 mg HS PRN PO 09/05/16 18:30 (Protonix) 40 mg DAILY PO 09/06/16 09:00 09/28/16 10:11 (Geodon) 80 mg BIDPC PO 09/06/16 09:00 09/28/16 10:11 (SEROquel) 300 mg HS PO 09/05/16 21:00 09/27/16 20:35 (Xarelto) 10 mg DAILY PO 09/13/16 21:45 09/28/16 10:11 (Synthroid) 200 mcg DAILY@06 PO 09/19/16 06:00 09/28/16 06:09 (Lithotabs) 600 mg Q12HR PO 09/18/16 21:00 09/28/16 10:11 (Zofran Odt) 4 mg Q6H PRN PO 09/18/16 15:45 A/P Problem List: (1) Trauma ICD Code: T14.90 Status: Acute (2) Multiple fractures ICD Code: T14.8 Status: Acute (3) Hypothyroidism ICD Code: E03.9 Status: Chronic (4) Patella fracture ICD Code: S82.009A Status: Acute (5) Elbow fracture ICD Code: S42.409A Status: Acute (6) Femur fracture, right ICD Code: S72.91XA Status: Acute (7) T12 vertebral fracture ICD Code: S22.089A Status: Acute (8) Suicide attempt ICD Code: T14.91 Status: Acute (9) Pelvic fracture ICD Code: S32.9XXA Status: Acute (10) Schizoaffective disorder, bipolar type ICD Code: F25.0 Status: Chronic Assessment and Plan Suicide attempt 07/12/2016- Bipolar disorder/schizophrenia: Psychiatry was following. - Back act was lifted and it was indicated that he is not a candidate for inpatient psychiatry - Continue Seroquel 300mg QHS - [place] 600mg Q12hrs. - Geodon 80mg BID - Psychiatry reconsulted at 's request. Seen by today who states patient is psychiatrically stable to be discharged home, - Patient has a tremor to his left hand which he associates with cast placement. Questionable dystonic tremor, postural, resting - result of left upper extremity. [place] level 1.2. Left message for Hugh Frazier PA to discuss reevaluation of LUE, no response. Now it's the weekend, will try and contact Pradeep on Thursday. Multiple orthopedic injuries - from suicide attempt on 07/12/2016. Orthopedic surgery followed - s/p right femur IMN, s/p exfix left elbow, s/p ORIF left patella, right patella fx, nonop pelvic fxs, Left elbow fracture dislocation with retained external fixation, Left distal radial ulnar joint dislocation, s/p removal of external fixation, manipulation of left elbow under anesthesia, closed reduction of distal radial ulnar joint with placement of long-arm cast 2016. Will contact Ortho tomorrow to discuss cast management - Right lower extremity still remains in immobilizer - Orthopedic surgery cleared for discharge. - LLE: PROM 0-90. WBAT, RLE: maintain knee brace. PROM 0-90. WBAT with knee brace on, LUE: NWB and maintain cast. ok for platform walker, RUE: WBAT. no restrictions - Continue monitor PT/OT recommendations for discharge planning. Patient has progressed very well. He is no longer a candidate for rehabilitation. Plan for discharge to home with home health care Thursday. Hypothyroidism - continue levothyroxine 200 mg daily Intermittent Tachycardia: HR wnl today. - Patient reported no pain, lithium level and TSH within normal limits. May be due to deconditioning. Continue to monitor. Presently heart rate is 91. Buttocks wound: Asymptomatic. Appears unchanged. Blanching denuded areas over the buttocks with surrounding peeled skin. No evidence of ulceration. Spoke with household coordinator, continue barrier cream. If worsens will need to consult them formally. Provide adequate support to avoid further pressure injury. Discussed with patient off loading maneuvers. To be followed by home health care following discharge. DVT prevention: On Xarelto. Discharge Planning DME and home health care orders placed and sent by case management. Discussed with Rigoberto, case management and patient to be discharged on Thursday once home health care set up for patient. Discussed at length with and patient. Attending Statement Patient seen. Agree with above. Mel Lai Sep 28, 2016 15:09 Ethan Malave MD Sep 28, 2016 15:43
[2016-09-28 20:00] VITALS: BP 103/79; PULSE 98; RESP 20; TEMP 97.4; O2SAT 97
[2016-09-28] MEDS: QUEtiapine FUMARATE 300 MG TAB PO SCH (20:46)
[2016-09-29] MEDS: LEVOTHYROXINE SODIUM 100 MCG TAB PO SCH (05:41)
[2016-09-29] MEDS: ZIPRASIDONE HCL 80 MG CAP PO SCH ×2 (07:58→17:59)
[2016-09-29] MEDS: LITHIUM CARBONATE 300 MG TAB PO SCH (07:58)
[2016-09-29] MEDS: RIVAROXABAN 10 MG TAB PO SCH (07:58)
[2016-09-29] MEDS: PANTOPRAZOLE SOD 40 MG DELAYED RELEASE TAB PO SCH (07:58)
[2016-09-29 08:00] VITALS: BP 103/72; PULSE 91; RESP 19; TEMP 96.8; O2SAT 96
--- NOTE | 2016-09-29 08:03 | RADHPO ---
EXAM DATE/TIME: 09/29/2016 07:39 [facility] COMPARISON: No previous studies available for comparison. INDICATIONS : Follow up closed reduction of left wrist. MEDICAL HISTORY : None. SURGICAL HISTORY : closed reduction left wrist ENCOUNTER: Subsequent ACUITY: 3 months PAIN SCORE: 0/10 LOCATION: Left wrist FINDINGS: Two view examination of the left wrist demonstrates anatomic alignment at the wrist with overlying ca st material. No dislocation. CONCLUSION: 1. Anatomic alignment at the wrist with overlying cast. Gerald Ferrer MD on September 29, 2016 at 7:50 Board Certified Radiologist. This report was verified electronically.
--- NOTE | 2016-09-29 08:06 | RADHPO ---
EXAM DATE/TIME: 09/29/2016 07:40 [facility] COMPARISON: No previous studies available for comparison. INDICATIONS : Follow up left elbow fracture. MEDICAL HISTORY : None. SURGICAL HISTORY : radial head replacement ENCOUNTER: Subsequent ACUITY: 3 months PAIN SCORE: 0/10 LOCATION: Left elbow FINDINGS: Two view examination of the left elbow demonstrates postoperative radial head replacement. Overlying cast. Normal alignment at the elbow. CONCLUSION: 1. Postoperative radial head replacement. Normal alignment at the elbow. Gerald Ferrer MD on September 29, 2016 at 8:02 Board Certified Radiologist. This report was verified electronically.
--- NOTE | 2016-09-29 09:50 | PD.ORT.PN ---
Subjective Subjective Remarks Comfortable in bed with no new complaints. In working with physical therapy getting up out of bed. He has been a one-person assist Objective Vitals Vital Signs Date Time Temp Pulse Resp B/P Pulse Ox O2 Delivery O2 Flow Rate FiO2 09/29/16 08:00 96.8 91 19 103/72 96 09/28/16 20:00 97.4 98 20 103/79 97 I/O 09/28/16 09/28/16 09/28/16 09/29/16 09/29/16 09/29/16 07:00 15:00 23:00 07:00 15:00 23:00 Intake Total 120 ml 100 ml 240 ml 240 ml 100 ml Output Total 2500 ml 300 ml Balance 120 ml 100 ml -2260 ml -60 ml 100 ml Intake Oral 120 ml 100 ml 240 ml 240 ml 100 ml Output Urine Total 2500 ml 300 ml # Voids 1 # Bowel Movements 1 Imaging Last 24 hours Impressions Wrist X-Ray 09/29/16 0000 Signed Impressions: Service Date/Time: Thursday, September 29, 2016 07:39 - CONCLUSION: 1. Anatomic alignment at the wrist with overlying cast. Gerald Ferrer MD Elbow X-Ray 09/29/16 0000 Signed Impressions: Service Date/Time: Thursday, September 29, 2016 07:40 - CONCLUSION: 1. Postoperative radial head replacement. Normal alignment at the elbow. Gerald Fererr MD Objective Remarks LUE: long arm cast in place in supination. NVI distally. contractures of fingers and wrist. LLE: incision and lacerations healing without sign of infection. +CKS. NVI RLE: +CKS. minimal swelling. NVI. incisions and lacerations healing without sign of infection.; Pelvis with mild tenderness with motion of hips Assessment & Plan Assessment and Plan 1) I&D with ORIF L open Patella fx, R long intramedullary femoral nail for intertroch and fem shaft fxs, I&D L Hand with closure of traumatic wound, I&D L elbow with application of ex-fix( [place])07/12/16 2) status post radial head replacement and complex repair of left elbow fracture dislocation with hinged external fixator([place]) 07/15/16 Nonweightbearing left upper extremity Occupational therapy for ROM of fingers 3) Right patella fracture to be treated nonoperatively with knee immobilizer 4)Pelvic fractures --plan nonoperative treatment 5) Closed reduction with casting and removal of exfix left elbow and DRUJ - LLE: PROM 0-90. WBAT RLE: PROM 0-90. WBAT with knee brace on only when ambulating LUE: NWB and maintain cast. ok for platform walker RUE: WBAT. no restrictions -DVT prophylaxis -psych mgmt -Physical therapy to assess patient's safety when ambulating. Must be able to walk with -ortho clear for discharge if safe Follow-up with Dr. Hoyt or PA in 2 weeks Meño Holland Jr. Sep 29, 2016 09:50
[2016-09-29] MEDS ORDERED: LEVO.1 PO (15:30)
[2016-09-29] MEDS ORDERED: XARE10TA PO (15:30)
[2016-09-29] MEDS ORDERED: LITH300T3 PO (15:30)
--- NOTE | 2016-09-29 15:40 | HHI.DCPOC ---
Discharge Care Plan Diagnosis: (1) T12 vertebral fracture (2) Impaired mobility and ADLs (3) Left patella fracture (4) Right patella fracture (5) Schizoaffective disorder, bipolar type (6) Multiple fractures (7) Suicide attempt (8) Trauma (9) Pelvic fracture (10) Elbow dislocation (11) Patella fracture (12) Elbow fracture (13) Femur fracture, right (14) Ulnar artery injury (15) Left radial fracture Goals to Promote Your Health * To prevent worsening of your condition and complications * To maintain your health at the optimal level Directions to Meet Your Goals Take your medications as prescribed Follow your dietary instruction Follow activity as directed Keep your appointments as scheduled Take your immunizations and boosters as scheduled If your symptoms worsen call your PCP, if no PCP go to Urgent Care Center or Emergency Room Smoking is Dangerous to Your Health. Avoid second hand smoke Call the 24-hour hour crisis hotline for domestic abuse at Mel Lai Sep 29, 2016 15:40
[2016-09-29] MEDS ORDERED: QUET1TAB10 PO (15:42)
[2016-09-29] MEDS ORDERED: GEOD80CA PO (15:42)
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
== END 2016-09-29 18:56 | disposition home health service (06) | DRG 561 ==
LOC: N06A 17:15 → PH5A 09-17 14:37
PROVIDERS: ADMIT Family Medicine; ATTEND Family Medicine
PROC: 0PP Upper Bones, Removal (ICD-10-PCS; 2016-09-05)
PROC: 0RSMXZZ Reposition Left Elbow Joint, External Approach (ICD-10-PCS; 2016-09-05)
PROC: 0RSPXZZ Reposition Left Wrist Joint, External Approach (ICD-10-PCS; 2016-09-05)
PROC: 0PP Upper Bones, Removal (ICD-10-PCS; principal; 2016-09-05 15:23)
DX: S42.402D Unspecified fracture of lower end of left humerus, subsequent encounter for fracture with routine healing (principal); E03.9 Hypothyroidism, unspecified; F25.0 Schizoaffective disorder, bipolar type; Z88.8 Allergy status to other drugs, medicaments and biological substances; Z91.013 Allergy to seafood; S82.002D Unspecified fracture of left patella, subsequent encounter for closed fracture with routine healing; S72.91XD Unspecified fracture of right femur, subsequent encounter for closed fracture with routine healing; S22.089D Unspecified fracture of T11-T12 vertebra, subsequent encounter for fracture with routine healing; S32.9XXD Fracture of unspecified parts of lumbosacral spine and pelvis, subsequent encounter for fracture with routine healing; R00.0 Tachycardia, unspecified; R25.1 Tremor, unspecified; S02.19XD Other fracture of base of skull, subsequent encounter for fracture with routine healing; S36.039D Unspecified laceration of spleen, subsequent encounter; L29.9 Pruritus, unspecified; S52.202D Unspecified fracture of shaft of left ulna, subsequent encounter for closed fracture with routine healing; R26.9 Unspecified abnormalities of gait and mobility; S55.00 Unspecified injury of ulnar artery at forearm level
CPT/HCPCS: 73070; 73100; 73560; 80048; 80178; 84443; 85025; J2405